=== PATIENT | female | born 1950 | race Caucasian/White ===

== ENCOUNTER → 2017-11-01 10:49 | Outpatient (CLI) | payer MEDICARE, OTHER, SELFPAY ==
[2017-11-01 12:33] LABS: Absolute Lymphocyte Count 2.02 X10^3/ul (0.83-4.51); Basophil# 0.01 X10^3/uL; Basophil% 0.2 % (0-1); Eosinophil# 0.12 X10^3/uL; Eosinophils% 2.2 % (0-5); Hematocrit 42.7 % (37-47); Lymphocyte # 2.02 X10^3/ul (4.0); Lymphocyte % 36.5 % (19-41); Mean Corp Hgb Conc 32.8 g/gl (32-36); Mean Corpuscular Hgb 30.8 pg (27.0-32.0); Mean Corpuscular Volume 94.1 fL (81-99); Mean Platelet Vol. 9.7 fl (6.2-12.0); Monocyte# 0.41 X10^3/uL; Monocyte% 7.4 % (0-10); Neutrophil # 2.97 X10^3/uL (2.7-7.7); Neutrophil % 53.7 % (47-70); Platelet Count 175 K/mm3 (150-450); RBC Distribution Width CV 13.1 % (11.6-14.6); RBC Distribution Width SD 44.8 fl (35.1-43.9); Red Blood Count 4.54 M/mm3 (4.2-5.4); White Blood Count 5.5 K/mm3 (4.4-11.0)
[2017-11-01 12:37] LABS: POSITIVE COUNT NO; POSITIVE DIFFERENTIAL NO; POSITIVE MORPHOLOGY NO
[2017-11-01 13:02] LABS: Anion Gap 9 (5-15); BUN 15 mg/dL (7-18); BUN/Creat Ratio 17.2 RATIO (10-20); Calcium,Total 9.1 mg/dL (8.5-10.1); Chloride 104 mmol/L (98-107); Creatinine, Serum 0.87 mg/dL (0.55-1.02); EST Glomerular Filtration Rate 69 mL/min (>60); Est Glom Filt Rate - Afr Amer 84 mL/min (>60); Glucose 103 mg/dL (74-106); Potassium 3.9 mmol/L (3.5-5.1); Sodium Level 139 mmol/L (136-145); Thyroid Stim Hormone (TSH) 1.73 uIU/mL (0.358-3.74)
== END ==
PROVIDERS: Family Provider Family Medicine; PCP Family Medicine; Visit Provider Family Medicine
DX: E03.9 Hypothyroidism, unspecified (principal); E78.5 Hyperlipidemia, unspecified
CPT/HCPCS: 36415; 80048; 84439; 84443; 85025

== ENCOUNTER → 2017-11-06 09:54 | Outpatient (CLI) | payer MEDICARE, OTHER, SELFPAY ==
--- NOTE | 2017-11-06 09:55 | ECHOD_ITS ---
Reason For Study: CHF Procedure This was a 2D Doppler, Color Flow transthoracic echocardiogram. Exam performed in department. Left Ventricle Normal size and thickness. The estimated ejection fraction is 55 %. Stage 1 diastolic dysfunction. Mid-Anterior : Mildly hypokinetic. Right Ventricle Normal size and thickness. Normal systolic function. Atria Normal left atrium. Normal right atrium. Normal atrial septum. Mitral Valve The mitral valve is structurally normal. No prolapse or stenosis seen. Tricuspid Valve Normal tricuspid valve. Trivial tricuspid valve insufficiency. Right ventricular systolic pressure estimated to be 24 mmHg. Aortic Valve Trisinus/trileaflet aortic valve. Mild diffuse aortic valve thickening. Mild (1+) aortic valve insufficiency. Pulmonic Valve Normal pulmonic valve. Great Vessels Normal aortic root. Normal arch. Normal inferior vena cava. Inferior vena cava collapse with sniff. Pericardium/Pleural No pericardial effusion. MMode/2D Measurements & Calculations LVIDd: 3.7 cm IVSd: 0.80 cm Ao root diam: 4.1 cm LVIDs: 2.7 cm LVPWd: 0.78 cm LA dimension: 4.3 cm RVDd: 3.8 cm FS: 28.0 % LAV(MOD-bp): 57.1 ml EDV(MOD-sp4): 89.6 ml EDV(MOD-sp2): 81.0 ml LAV(MOD-bp) Indexed: 28.4 ml/m2 ESV(MOD-sp4): 45.6 ml EF(MOD-sp2): 54.7 % LAV(MOD-sp2): 60.2 ml EF(MOD-sp4): 49.1 % LAV(MOD-sp4): 45.9 ml SV(MOD-sp4): 43.9 ml SV(MOD-sp2): 44.3 ml LA A4 area: 17.4 cm2 RA A4 area: 14.1 cm2 Doppler Measurements & Calculations MV E max jorge: 76.1 cm/sec Ao V2 max: 117.0 cm/sec AI max jorge: 351.8 cm/sec MV A max jorge: 88.8 cm/sec Ao max P.5 mmHg AI max P.0 mmHg MV E/A: 0.86 AI dec slope: 167.7 cm/sec2 AI P1/2t: 614.5 msec LV V1 max: 95.4 cm/sec TR max jorge: 217.5 cm/sec LV V1 max P.6 mmHg TR max P.9 mmHg Interpretation Summary The estimated ejection fraction is 55 %. Mid-Anterior : Mildly hypokinetic Stage 1 diastolic dysfunction. Trivial tricuspid valve insufficiency. Right ventricular systolic pressure estimated to be 24 mmHg. Mild (1+) aortic valve insufficiency. Compared to echo report dated 07/24/2017no appreciable changes noted. Ordering Physician: Rashi Traylor Referring Physician: KRISTIAN LAGUERRE Performed By: Emili Coley, KIZZYCS, RVT
== END ==
PROVIDERS: Family Provider Family Medicine; PCP Family Medicine; Visit Provider Internal Medicine Cardiovascular Disease
DX: I25.10 Atherosclerotic heart disease of native coronary artery without angina pectoris (principal)
CPT/HCPCS: 93306

== ENCOUNTER → 2018-04-01 15:28 | Outpatient (CLI) | payer MEDICARE, OTHER, SELFPAY | PROVIDERS: Family Provider Family Medicine; PCP Family Medicine; Visit Provider Obstetrics & Gynecology | DX: Z12.31 Encounter for screening mammogram for malignant neoplasm of breast (principal) | CPT/HCPCS: 77063; 77067 ==

== ENCOUNTER → 2018-05-07 14:40 | Outpatient (CLI) | payer MEDICARE, OTHER, SELFPAY ==
[2018-05-07 15:41] LABS: Absolute Lymphocyte Count 2.93 X10^3/ul (0.83-4.51); Absolute Neutrophil Count 3.2 X10^3/uL (2.0-7.7); Basophil# 0.02 X10^3/uL; Basophil% 0.3 % (0-1); Eosinophil# 0.23 X10^3/uL; Eosinophils% 3.3 % (0-5); Hematocrit 40.7 % (37-47); Hemoglobin 13.7 g/dl (12.0-15.0); Lymphocyte # 2.93 X10^3/ul (4.0); Lymphocyte % 41.9 % (19-41); Mean Corp Hgb Conc 33.7 g/gl (32-36); Mean Corpuscular Hgb 31.4 pg (27.0-32.0); Mean Corpuscular Volume 93.1 fL (81-99); Mean Platelet Vol. 9.7 fl (6.2-12.0); Monocyte# 0.66 X10^3/uL; Monocyte% 9.4 % (0-10); Neutrophil # 3.15 X10^3/uL (2.7-7.7); Platelet Count 184 K/mm3 (150-450); RBC Distribution Width CV 12.9 % (11.6-14.6); RBC Distribution Width SD 42.8 fl (35.1-43.9); Red Blood Count 4.37 M/mm3 (4.2-5.4)
[2018-05-07 15:57] LABS: POSITIVE COUNT NO; POSITIVE DIFFERENTIAL NO; POSITIVE MORPHOLOGY NO
[2018-05-07 16:25] LABS: Vitamin D,25 Hydroxy 22.3 ng/mL (29.95-100.01)
[2018-05-07 16:29] LABS: AST(SGOT) 70 U/L (15-37); Alanine Aminotransfer ALT/SGPT 87 U/L (13-56); Albumin, Serum 3.7 g/dL (3.2-5.0); Alkaline Phosphatase 95 U/L (45-117); Anion Gap 10 (5-15); BUN 18 mg/dL (7-18); BUN/Creat Ratio 19.7 RATIO (10-20); Chloride 104 mmol/L (98-107); Creatinine, Serum 0.91 mg/dL (0.55-1.02); EST Glomerular Filtration Rate 65 mL/min (>60); Est Glom Filt Rate - Afr Amer 79 mL/min (>60); Globulin 3.6 g/dL (2.2-4.2); Glucose 108 mg/dL (74-106); Protein, Total 7.3 g/dL (6.4-8.2); Sodium Level 140 mmol/L (136-145); T4 Free Direct 1.18 ng/dL (0.76-1.46); Thyroid Stim Hormone (TSH) 1.69 uIU/mL (0.358-3.74)
== END ==
PROVIDERS: Family Provider Family Medicine; PCP Family Medicine; Visit Provider Family Medicine
DX: E03.9 Hypothyroidism, unspecified (principal); M85.80 Other specified disorders of bone density and structure, unspecified site; E78.5 Hyperlipidemia, unspecified; G47.00 Insomnia, unspecified; R53.83 Other fatigue
CPT/HCPCS: 36415; 80053; 82306; 84439; 84443; 85025

== ENCOUNTER → 2018-07-17 12:07 | Outpatient (CLI) | payer MEDICARE, OTHER, SELFPAY ==
[2018-06-09 11:37] VITALS: BMI 35.9
[2018-07-17 14:11] LABS: AST(SGOT) 37 U/L (15-37); Alanine Aminotransfer ALT/SGPT 48 U/L (13-56); Albumin, Serum 3.7 g/dL (3.2-5.0); Alkaline Phosphatase 83 U/L (45-117); Bilirubin, Direct 0.21 mg/dL (0.00-0.30); Globulin 3.7 g/dL (2.2-4.2); Protein, Total 7.4 g/dL (6.4-8.2)
--- OUTSIDE RECORDS SUMMARY | 2018-09-11 15:20 | XMS RPT_ITS ---
:1950 Author Organization [facility] Care Team Providers Name Role Phone Janiya Cornelius Attending Unavailable Conrado, Kristian Referring Unavailable Conrado, Kristian Primary Care Unavailable ConradoKristian nuñez Attending Unavailable Conrado, Kristian Primary Care Unavailable Rashi Traylor Attending Unavailable Conrado, Kristian Referring Unavailable Conrado, Kristian Primary Care Unavailable Rashi Traylor Attending Unavailable Conrado, Kristian Primary Care Unavailable Rashi Traylor Attending Unavailable Lilia Keen Attending Unavailable Conrado, Kristian Primary Care Unavailable Conrado, Kristian Attending Unavailable Conrado, Kristian Primary Care Unavailable Janiya Cornelius Attending Unavailable Conrado, Kristian Referring Unavailable Janiya Cornelius Attending Unavailable Janiya Cornelius Referring Unavailable Primay Care Physicia, No Primary Care Unavailable PROBLEMS PROBLEMS DATE TYPE CONDITION / CODE ATTENDING STATUS SOURCE 06/09/2018 Unknown E78.5 - Adryan, Active [place] Hyperlipidemia, Janiya Vazquez [facility] unspecified / Hospital E78.5(ICD-10) Repository 11/05/2017 Unknown I25.10 - Rashi Traylor Active [place] Atherosclerotic heart Community disease of [facility] coronary artery Repository without angina pectoris / I25.10(ICD-10) 11/05/2017 Unknown E03.9 - Kristian Camp Active [place] Hypothyroidism, Community unspecified / Hospital E03.9(ICD-10) Repository PROCEDURES PROCEDURES No Procedure Records FoundRESULTS RESULTS LIVER PROFILE Collected: 07/17/2018 Status: F Source: [place] 12:13 PM [facility] REPOSITORY TYPE CODE TESTS RESULT OUT OF RANGE REFERENCE UNITS LAB L501.1500 6.4-8.2 g/dL Normal T PROT 7.4 LAB L501.1800 3.2-5.0 g/dL Normal ALB 3.7 LAB L501.1950 2.2-4.2 g/dL Normal GLOB 3.7 LAB L501.4100 15-37 U/L Normal AST 37 LAB L501.4305 45-117 U/L Normal ALK P 83 LAB L501.4405 13-56 U/L Normal ALT 48 LAB L501.4600 0.20-1.00 mg/dL Normal T BILI 0.70 LAB L501.4700 0.00-0.30 mg/dL Normal D BILI 0.21 Performed By: #### L500.3400 #### [facility] [address] [place], [place], [address] CARDIOLOGY VISIT Observed: 06/16/2018 Status: F Source: [place] REPORT 2:55 PM [facility] REPOSITORY [facility] [address] [place] [address] OFFICE VISIT Date of Service: 06/09/18 MR#: [id number] Acct: [id number] Name: ROMERO PONCE Rep #: [id number] : 1950 Provider: Janiya Cornelius Age/Sex: 68/F [place] [facility] [place]: Signed HPI HPI Chief Complaint: Routine f/u Details: ROMERO PONCE, is a 68 F who presents to the office today for a cardiovascular follow-up. She had a non-ST myocardial infarction in July 2017. Her troponin did elevate to 37. She did undergo a diagnostic heart catheterization it was noted that she had no significant coronary artery disease. 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 From a cardiac standpoint, patient is doing well. She does not have any chest discomfort/heaviness/tightness. Her exercise tolerance is stable for her age. She does not have any worsening symptoms of shortness of breath. She does not have any orthopnea. She denies PND. She does not have any symptoms of congestive heart failure. She does not have any palpitations that she is aware of. She does not have any lightheadedness or dizziness. She does not have any near-syncope or syncope. She does not have any lower extremity edema. She does not have any symptoms of claudication. Intake Vital Signs06/09/18 Height 5 ft 3 in 06/09/18 Weight: 203 lb 06/09/18 Body Mass Index (BMI) 35.9 06/09/18 Blood Pressure 118/72 06/09/18 Blood Pressure Location Lt brachial Intake Visit Reasons: 6 M FU Bee Robber Required: No Is patient in pain?: No Allergies Sulfa (Sulfonamide Antibiotics) Allergy (Verified 06/09/18 11:38) Rash Medications Levothyroxine [Synthroid] 75 mcg PO DAILY 03/27/15 [History Confirmed 06/09/18] Multivit with Calcium,Iron,Min [Multiple Vitamins For Women] 1 ea PO DAILY 03/27/15 [History Confirmed 06/09/18] Zolpidem Tartrate [Ambien] 5 mg PO QHS PRN PRN 07/24/17 [History Confirmed 06/09/18] Aspirin [Aspirin, Baby] 81 mg PO DAILY@0800 #90 tab.chew 07/26/17 [Rx Confirmed 06/09/18] Atorvastatin Calcium [Lipitor] 40 mg PO QHS #90 tab 07/26/17 [Rx Confirmed 06/09/18] Metoprolol Tartrate [Lopressor (beta karma)] 12.5 mg PO BID #30 tab 07/26/17 [Rx Confirmed 06/09/18] lisinopril 20 mg-hydrochlorothiazide 12.5 mg tablet 0.5 tab PO .QD tab 11/05/17 [History Confirmed 06/09/18] PFSH Medical History Atherosclerosis of coronary artery of [place] heart without angina pectoris (Chronic) Hyperlipidemia (Chronic) Hypertension (Chronic) Non-STEMI (non-ST elevated myocardial infarction) (Acute 07/2017) Social History Smoking Status: Never smoker ROS Const Const: Negative for weakness, fatigue, fever(s) or headache(s) Eyes Eyes: Negative for blind spots, loss of peripheral vision or transient loss of vision ENT ENT: Negative for headache(s), dizziness, tinnitus or Nosebleed/epistaxis Cardio Chest Pain: No Palpitations: No Edema: None Muscle aches with walking: None Resp Respiratory: Negative for SOB with activity, SOB at rest, SOB orthopnea\SOB lying down or Cough GI GI: Negative nausea, vomiting, heartburn or vomiting blood/hematemesis : Negative for hematuria Musc Musc: Negative for muscle aches/ myalgia Neuro Neuro: Negative for weakness, headache(s), dizziness, near syncope, syncope, lightheadedness or orthostatic symptoms Kye Hematologic/Lymphatic: Negative for easy bleeding Endo Endo: Negative for fatigue Cardiology Exam Const Appearance: cooperative, no acute distress and well developed Orientation: alert, awake and oriented x3 Head Head: normocephalic and atraumatic Mouth: moist mucous membranes Eyes General: appearance normal, both eyes and all related structures Conjunctivae: conjunctivae normal Pupils: PERRL EOM: EOM intact bilaterally Neck Neck: normal visual inspection, no lymphadenopathy and no JVD Carotids: Negative bruit Neck Mass: Negative Neck mass Chest Chest inspection: normal inspection of the chest and symmetric chest movement Auscultation: Bilateral: Clear to Auscultation Cardio Palpation: normal PMI Rate: regular rate Rhythm: regular rhythm Heart sounds: S1 normal and S2 normal; negative rub, gallop or murmur GI GI: normal to inspection, soft, no hepatosplenomegaly and bowel sounds present; negative tender Neuro General: alert, awake, oriented x3, CN's II-XI intact bilaterally and moves all extremities Extremities Pulses: Normal: Right Posterior Tibial Pulse, Left Posterior Tibial Pulse, Right Radial Pulse, Left Radial Pulse Lower Extremity Edema: None: Bilateral Psych Psychological: normal affect Supplemental Info Echocardiogram in 2018 demonstrated: The estimated ejection fraction is 55 %. Mid-Anterior : Mildly hypokinetic Stage 1 diastolic dysfunction. Trivial tricuspid valve insufficiency. Right ventricular systolic pressure estimated to be 24 mmHg. Mild (1+) aortic valve insufficiency. Compared to echo report dated 07/24/2017no appreciable changes noted. Assessment AND Plan 1. Atherosclerosis of [place] coronary artery of [place] heart without angina pectoris I25.10 Plan Stable, from a cardiac standpoint patient does not have any symptoms of angina. We recommend that they continue with current aggressive medical management and risk factor modification. 2. Pure hypercholesterolemia E78.00 Plan This is previously been managed by her primary care doctor. She is concerned about her elevated liver enzymes. We will have her decrease her atorvastatin to 20 mg daily and repeat her hepatic panel in 4 weeks. We will continue to adjust accordingly Patient Instructions Decrease your atorvastatin to 20 mg, Repeat hepatic panel in 4 weeks. 3. Essential hypertension I10 Plan Adequately controlled on current medications. Will not make any adjustments Plan Detail Other Orders Orders: Additional Comments Thank you for allowing us to participate in patient's plan of care, if you have any questions please do not hesitate to call. This note was generated using a voice recognition system and there may be incorrect words, spelling or punctuation errors that were not noted when reviewing the office note prior to saving. Follow Up 6 Months (MARQUISEN) Coding Level of Care Code Off vis,est,level 3 Diagnoses Atherosclerosis of [place] coronary artery of [place] heart without angina pectoris I25.10 Coronary Disease-Associated Artery/Lesion type: [place] artery Pure hypercholesterolemia E78.00 Hyperlipidemia type: pure hypercholesterolemia Essential hypertension I10 Hypertension type: essential hypertension Coding Level of Care Code Off vis,est,level 3 Diagnoses Atherosclerosis of [place] coronary artery of [place] heart without angina pectoris I25.10 Coronary Disease-Associated Artery/Lesion type: [place] artery Pure hypercholesterolemia E78.00 Hyperlipidemia type: pure hypercholesterolemia Essential hypertension I10 Hypertension type: essential hypertension 06/16/18 1455 <Electronically signed by Janiya DEL ANGEL> Date Janiya DEL ANGEL Cosigner Signature: Date (if applicable) CC: Kristian Camp MD CBC W/DIFF, AUTOMATED Collected: 05/07/2018 Status: F Source: [place] 2:42 PM [facility] REPOSITORY TYPE CODE TESTS RESULT OUT OF RANGE REFERENCE UNITS LAB L100.1000 4.4-11.0 K/mm3 Normal WBC 7.0 LAB L100.1200 4.2-5.4 M/mm3 Normal RBC 4.37 LAB L100.1300 12.0-15.0 g/dl Normal HGB 13.7 LAB L100.1400 37-47 % Normal HCT 40.7 LAB L100.1500 81-99 fL Normal MCV 93.1 LAB L100.1600 27.0-32.0 pg Normal MCH 31.4 LAB L100.1700 32-36 g/gl Normal MCHC 33.7 LAB L100.1810 11.6-14.6 % Normal RDW CV 12.9 LAB L100.1820 35.1-43.9 fl Normal RDW SD 42.8 LAB L100.1900 150-450 K/mm3 Normal PLT 184 LAB L100.2000 6.2-12.0 fl Normal MPV 9.7 LAB L100.2100 47-70 % Low NEUT% 45.0 LAB L100.2200 19-41 % High LY% 41.9 LAB L100.2300 0-10 % Normal MONO% 9.4 LAB L100.2400 0-5 % Normal EO% 3.3 LAB L100.2500 0-1 % Normal BASO% 0.3 LAB L100.2550 0.0-0.9 % Normal IM GRAN % 0.100 Result Comment: IG% - Immature Granulocytes (promyelocytes, myelocytes and metamyelocytes) > 1% indicates that a LEFT SHIFT is Present. LAB L100.2620 2.0-7.7 X10 3/uL Normal Absolute Neut 3.2 LAB L100.2720 0.83-4.51 X10 3/ul Normal Absolute Lymph 2.93 Performed By: #### L100.0100 #### [facility] [place], [address] VITAMIN D,25 HYDROXY Collected: 05/07/2018 Status: F Source: [place] 2:42 PM [facility] REPOSITORY TYPE CODE TESTS RESULT OUT OF REFERENCE UNITS RANGE LAB L506.1000 29.95-100.01 ng/mL Low Vitamin D 22.3 25-OH Result Comment: Vitamin D 25(OH) Status Range Deficiency <20 ng/mL (50nmol/L) Insuffciency 20 - 30 ng/mL (50 - 75 nmol/L) Sufficiency 30 - 100 ng/mL (75 - 250 nmol/L) Toxicity >100 ng/mL (>250 nmol/L) Performed By: #### L506.1000 #### [facility] [address] [place], [address] COMPREHENSIVE METABOLIC Collected: 05/07/2018 Status: F Source: [place] MANN 2:42 PM [facility] REPOSITORY TYPE CODE TESTS RESULT OUT OF RANGE REFERENCE UNITS LAB L501.0100 74-106 mg/dL High GLU 108 Result Comment: Fasting Glucose result from 100 to 125 mg/dL suggests IMPAIRED HOMEOSTASIS per A.D.A. criteria. Please note revised GLUCOSE reference range effective 2017. LAB L501.1000 7-18 mg/dL Normal BUN 18 LAB L501.1100 0.55-1.02 mg/dL Normal CREAT,SERUM 0.91 Result Comment: The validity of the calculated GFR AND GFRAA in patients over 70 years has not been determined. Clinical correlation is essential. LAB L501.1110 >60 mL/min Normal EST GFR 65 Result Comment: Non- GFR Calc LAB L501.1115 >60 mL/min Normal EST GFR - AA 79 Result Comment: GFR Calc LAB L501.1300 10-20 RATIO Normal BUN/CRE 19.7 LAB L501.1500 6.4-8.2 g/dL T Normal PROT 7.3 LAB L501.1800 3.2-5.0 g/dL Normal ALB 3.7 LAB L501.1950 2.2-4.2 g/dL Normal GLOB 3.6 LAB L501.2000 0.9-2.4 RATIO Normal A/G 1.0 LAB L501.2200 8.5-10.1 mg/dL CA Normal 9.0 LAB L501.4100 15-37 U/L High AST 70 LAB L501.4305 45-117 U/L Normal ALK P 95 LAB L501.4405 13-56 U/L High ALT 87 LAB L501.4600 0.20-1.00 mg/dL T Normal BILI 0.60 LAB L501.5300 136-145 mmol/L NA Normal 140 LAB L501.5600 3.5-5.1 mmol/L K Normal 4.0 LAB L501.5900 98-107 mmol/L CL Normal 104 LAB L501.6100 21.0-32.0 mmol/L Normal CO2 26.0 LAB L501.6200 5-15 Normal GAP 10 Performed By: #### L500.4050, L501.9520, L506.0400 #### [facility] [address] [place], [address] THYROID STIM HORMONE Collected: 05/07/2018 Status: F Source: [place] (TSH) 2:42 PM [facility] REPOSITORY TYPE CODE TESTS RESULT OUT OF RANGE REFERENCE UNITS LAB L501.9520 0.358-3.74 uIU/mL Normal TSH 1.69 Performed By: #### L500.4050, L501.9520, L506.0400 #### [facility] [address] [place], [address] T4 FREE DIRECT Collected: 05/07/2018 Status: F Source: [place] 2:42 PM [facility] REPOSITORY TYPE CODE TESTS RESULT OUT OF RANGE REFERENCE UNITS LAB L506.0400 0.76-1.46 ng/dL Normal T4 FREE 1.18 DIRECT Performed By: #### L500.4050, L501.9520, L506.0400 #### [facility] [address] [place], [address] SCREENING MAMM (CAD), Observed: 04/01/2018 Status: F Source: [place] BILAT 3:34 PM [facility] REPOSITORY [facility] Imaging Services [address] [place] [id number] SCREENING MAMM (CAD), BILAT MR#: [id number] Acct: [id number] Name: ROMERO PONCE Rep #: [id number] : 1950 F 67 From: Rogerio Kirby MD PCP: Kristian Camp MD Status: REG CLI Study: SCREENING MAMM (CAD), BILAT Date of Exam: 04/01/18 Exam# [id number] Ordering Dr: Lilia Keen MD MAMMOGRAPHY - BILATERAL SCREENING REASON FOR EXAM: Female, 67 years old. Routine annual screening examination. PERTINENT HISTORY: Non-contributory. TECHNIQUE: Digital bilateral breast rachelle (3D mammographic acquisition) in the CC and MLO projections. 2-D mediolateral oblique (MLO) and craniocaudad (CC) views of both breasts were obtained. CAD: Full Field Digital Mammography with Computer Added Detection was performed. COMPARISON: Comparison is made with prior study dated March 06, 2017 and January 03, 2016. FINDINGS: Breast Composition: The breasts are almost entirely fatty. There are no dominant masses or suspicious calcifications. No other significant abnormalities are identified. There has been no significant change since the prior study. BI/SCREENING MAMM (CAD), BILAT IMPRESSION: Stable bilateral screening mammogram. Yearly follow-up mammogram recommended. (A) ASSESSMENT CATEGORY: BIRADS Category 1: Negative. A letter regarding these results will be sent to the patient by the facility within 30 days. Approximately 10% of breast cancers are not detected by mammography. A normal mammogram should not delay biopsy of a clinically suspicious abnormality. [id number] Electronically Signed: Rogerio Kirby MD at 9:43 EDT Tel [phone], Service support , CC: Lilia Keen MD; Kristian Camp MD Fire Sprinkler Inspector: Signed ECHOCARDIOGRAM COMPLETE Observed: 11/06/2017 Status: F Source: [place] 5:02 PM [facility] REPOSITORY [facility] Cardiovascular Services [facility] [place] [address] Echo Complete 11/06/17 0959 MR#: [id number] Acct: [id number] Name: ROMERO PONCE Rep #: [id number] : 1950 67 From: Rashi Traylor MD Attending Dr: Rashi Traylor MD Status: REG CLI Ordering Dr: Rashi Traylor MD Date: 11/06/17 Location: [facility] Sex: F C Admitted: Reason For Study: CHF Procedure This was a 2D Doppler, Color Flow transthoracic echocardiogram. Exam performed in department. Left Ventricle Normal size and thickness. The estimated ejection fraction is 55 %. Stage 1 diastolic dysfunction. Mid-Anterior : Mildly hypokinetic. Right Ventricle Normal size and thickness. Normal systolic function. Atria Normal left atrium. Normal right atrium. Normal atrial septum. Mitral Valve The mitral valve is structurally normal. No prolapse or stenosis seen. Tricuspid Valve Normal tricuspid valve. Trivial tricuspid valve insufficiency. Right ventricular systolic pressure estimated to be 24 mmHg. Aortic Valve Trisinus/trileaflet aortic valve. Mild diffuse aortic valve thickening. Mild (1+) aortic valve insufficiency. Pulmonic Valve Normal pulmonic valve. Great Vessels Normal aortic root. Normal arch. Normal inferior vena cava. Inferior vena cava collapse with sniff. Pericardium/Pleural No pericardial effusion. MMode/2D Measurements AND Calculations LVIDd: 3.7 cm IVSd: 0.80 cm Ao root diam: 4.1 cm LVIDs: 2.7 cm LVPWd: 0.78 cm LA dimension: 4.3 cm RVDd: 3.8 cm FS: 28.0 % LAV(MOD-bp): 57.1 ml EDV(MOD-sp4): 89.6 ml EDV(MOD-sp2): 81.0 ml LAV(MOD-bp) Indexed: 28.4 ml/m2 ESV(MOD-sp4): 45.6 ml EF(MOD-sp2): 54.7 % LAV(MOD-sp2): 60.2 ml EF(MOD-sp4): 49.1 % LAV(MOD-sp4): 45.9 ml SV(MOD-sp4): 43.9 ml SV(MOD-sp2): 44.3 ml LA A4 area: 17.4 cm2 RA A4 area: 14.1 cm2 Doppler Measurements AND Calculations MV E max jorge: 76.1 cm/sec Ao V2 max: 117.0 cm/sec AI max jorge: 351.8 cm/sec MV A max jorge: 88.8 cm/sec Ao max P.5 mmHg AI max P.0 mmHg MV E/A: 0.86 AI dec slope: 167.7 cm/sec2 AI P1/2t: 614.5 msec LV V1 max: 95.4 cm/sec TR max jorge: 217.5 cm/sec LV V1 max P.6 mmHg TR max P.9 mmHg Interpretation Summary The estimated ejection fraction is 55 %. Mid-Anterior : Mildly hypokinetic Stage 1 diastolic dysfunction. Trivial tricuspid valve insufficiency. Right ventricular systolic pressure estimated to be 24 mmHg. Mild (1+) aortic valve insufficiency. Compared to echo report dated 12/06/2017no appreciable changes noted. Ordering Physician: Rashi Traylor Referring Physician: KRISTIAN LAGUERRE Performed By: Emili Coley, LORENA, RVT 11/06/17 170 Date Rashi Traylor MD CC: Rashi Traylor MD; Kristian Camp Date Dictated: 11/06/17958 Date Transcribed: 11/06/171700 Fire Sprinkler Inspector: Signed CARDIOLOGY VISIT Observed: 11/05/2017 Status: F Source: [place] REPORT 10:56 AM [facility] REPOSITORY [facility] [address] [place] [address] OFFICE VISIT Date of Service: 11/05/17 MR#: [id number] Acct: [id number] Name: ROMERO PONCE Rep #: [id number] : 1950 Provider: Rashi Traylor MD Age/Sex: 67/F [place] [facility] Status: Signed HPI HPI Chief Complaint: Routine f/u Details: Details: ROMERO PONCE, is a 67 F who presents to the office today for a hospital follow-up. She had a non-ST myocardial infarction in July 2017. Her troponin did elevate to 31. She did undergo a diagnostic heart catheterization it was noted that she had no significant coronary artery disease. 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 Patient states that since her hospital stay she has not had any chest discomfort. She has not had any worsening shortness of breath. She does have questions on what type of activity she can do. She does have questions regarding her medications. She has not had any palpitations. She has not had any lightheadedness or dizziness. She has not had any lower extremity edema. Patient apparently requires foot surgery for a loose screw, and is here for evaluation. She has been taking and tolerating her medicines well. She feels great, and denies any chest pain, angina or shortness of breath. She was unable to participate in cardiac rehab due to her foot injury and mobility limitations. In our office today's blood pressure is 1 1 672, pulse of 64 and regular. Physical exam is as below. Lipids as of 02/28/17 show an HDL of 51 and LDL of 84. TSH and T4 were normal. Repeat echo is pending. Intake Vital Signs11/05/17 Height 5 ft 3 in 11/05/17 Weight: 207 lb 11/05/17 Body Mass Index (BMI) 36.6 11/05/17 Blood Pressure 116/72 11/05/17 Respiratory Rate 18 11/05/17 Pulse Rate 64 Intake Visit Reasons: 3 M FU Allergies Sulfa (Sulfonamide Antibiotics) Allergy (Verified 11/05/17 10:11) Rash Medications Calcium Carb,Gluc/Mag Ox,Gluc [Calcium Magnesium Caplet] 1 ea PO DAILY 03/27/15 [History Confirmed 11/05/17] Levothyroxine [Synthroid] 75 mcg PO DAILY 03/27/15 [History Confirmed 11/05/17] Multivit with Calcium,Iron,Min [Multiple Vitamins For Women] 1 ea PO DAILY 03/27/15 [History Confirmed 11/05/17] Zolpidem Tartrate [Ambien] 5 mg PO QHS PRN PRN 07/24/17 [History Confirmed 11/05/17] Aspirin [Aspirin, Baby] 81 mg PO DAILY@0800 #90 tab.chew 07/26/17 [Rx Confirmed 11/05/17] Atorvastatin Calcium [Lipitor] 40 mg PO QHS #90 tab 07/26/17 [Rx Confirmed 11/05/17] Clopidogrel Bisulfate [Plavix] 75 mg PO DAILY #90 tab 07/26/17 [Rx Confirmed 11/05/17] Metoprolol Tartrate [Lopressor (beta karma)] 12.5 mg PO BID #30 tab 07/26/17 [Rx Confirmed 11/05/17] lisinopril 20 mg-hydrochlorothiazide 12.5 mg tablet 0.5 tab PO .QD tab 11/05/17 [History Confirmed 11/05/17] [facility] Medical History Atherosclerosis of coronary artery of [place] heart without angina pectoris (Chronic) Hyperlipidemia (Chronic) Hypertension (Chronic) Non-STEMI (non-ST elevated myocardial infarction) (Acute 07/2017) Social History Smoking Status: Never smoker ROS Const Const: Positive for fatigue and other (Needs right foot surgery. Scheduled for next week.); negative for weakness, difficulty sleeping, frequent falls, headache(s) or excessive sweating Eyes Eyes: Negative for loss of peripheral vision, transient loss of vision, blurry vision or double vision ENT ENT: Negative for headache(s), dizziness, Nosebleed/epistaxis or balance problems Cardio Chest Pain: No Edema: None Muscle aches with walking: None Resp Respiratory: Positive for SOB with activity (SOB when climbing stairs); negative for SOB at rest, SOB orthopnea\SOB lying down or paroxysmal nocturnal dyspnea GI GI: Negative nausea or heartburn : Negative for hematuria Musc Musc: Negative for muscle aches/ myalgia, muscle weakness, joint pain or balance problems Skin Skin: Negative non-healing lesions, unusual bruising or rash Neuro Neuro: Negative for weakness, frequent falls, blurry vision, headache(s), dizziness, lightheadedness, orthostatic symptoms or double vision [place]ye Hematologic/Lymphatic: Negative for easy bruising Endo Endo: Positive for fatigue; negative for excessive sweating or increased thirst/drinking Psych Psych: Negative for anxiety or depression Allergy Allergy/Immunology: Negative for hives, Negative for rash Cardiology Exam Const Appearance: cooperative, healthy appearing and no acute distress Nutritional Appearance: well nourished Orientation: alert, oriented x3 and oriented to person Head Head: normal to inspection, atraumatic and normocephalic Nose: external nose normal Face and Sinus: face symmetric Mouth: oral mucosae normal Eyes General: appearance normal, both eyes and all related structures Eyelids: eyelids normal Conjunctivae: conjunctivae normal Pupils: PERRL and normal by confrontation EOM: EOM intact bilaterally Neck Neck: normal visual inspection and full ROM Carotids: normal carotid upstroke Chest Chest inspection: normal inspection of the chest Auscultation: Bilateral: Clear to Auscultation Cardio Palpation: normal PMI Rate: regular rate Rhythm: regular rhythm Heart sounds: S1 normal and S2 normal GI GI: normal to inspection, no hepatosplenomegaly and bowel sounds present Neuro General: alert, oriented x3, awake, CN's II-XI intact bilaterally and moves all extremities Skin Skin: no rashes or lesions noted Extremities Pulses: Normal: Right Femoral Pulse, Left Femoral Pulse, Right Dorsalis Pedis Pulse, Left Dorsalis Pedis Pulse, Right Posterior Tibial Pulse, Left Posterior Tibial Pulse, Right Radial Pulse, Left Radial Pulse Lower Extremity Edema: None: Bilateral Psych Psychological: normal affect Assessment AND Plan 1. Atherosclerosis of coronary artery of [place] heart without angina pectoris I25.10 Plan 1. Coronary artery disease: In July 2017 the patient presented with what appeared to be coronary vasospasm or small vessel occlusion which could not be completely determined by catheterization. She is remained on baby aspirin and Plavix since that time, and now requires repeat foot surgery to repair a screw. Recommend discontinuation of Plavix which she did last , but would recommend lifelong baby aspirin. I do not believe she requires a repeat stress test for her surgery. I would recommend continuing Zestoretic, Lopressor. I do not believe she requires reinitiation of Plavix therapy after her surgery as she did not receive a stent. It is been about 3 months since her event. It is possible the patient may have had coronary vasospasm such as Takostubos cardiomyopathy to explain her symptoms and abnormal troponin although her troponin was fairly high for stress-induced cardiomyopathy. Nonetheless, it may happen again given the stress of her surgery. It hopefully will be mitigated with beta-karma therapy. Her blood pressure is optimized. Continue present management. I would however recommend repeat echocardiogram to determine if her mid anterior apical dysfunction has improved. The patient was unable to put spitting cardiac rehab due to her foot. Once her foot is healed I would recommend her proceed with cardiac rehab. Orders Orders: 2. Pure hypercholesterolemia E78.00 Plan 2. Hypercholesterolemia: Her LDL and HDL cholesterol are fairly well-controlled. Continue Lipitor. 3. Return office in 6 months. This note was generated using a voice recognition system and there may be incorrect words, spelling or punctuation that were not noted when reviewing the office note prior to saving. Plan Detail Follow Up 6 Months ([place]) Coding Level of Care Code Off vis,est,level 3 Diagnoses Atherosclerosis of coronary artery of mil[place] lacs heart without angina pectoris I25.10 Pure hypercholesterolemia E78.00 Hyperlipidemia type: pure hypercholesterolemia Coding Level of Care Code Off vis,est,level 3 Diagnoses Atherosclerosis of coronary artery of [place] heart without angina pectoris I25.10 Pure hypercholesterolemia E78.00 Hyperlipidemia type: pure hypercholesterolemia 11/05/17 1056 <Electronically signed by Rashi Traylor MD> Date Rashi Traylor MD Cosigner Signature: Date (if applicable) CC: CBC W/DIFF, AUTOMATED Collected: 11/01/2017 Status: F Source: PAUL 10:51 AM [facility] REPOSITORY TYPE CODE TESTS RESULT OUT OF RANGE REFERENCE UNITS LAB L100.1000 4.4-11.0 K/mm3 Normal WBC 5.5 LAB L100.1200 4.2-5.4 M/mm3 Normal RBC 4.54 LAB L100.1300 12.0-15.0 g/dl Normal HGB 14.0 LAB L100.1400 37-47 % Normal HCT 42.7 LAB L100.1500 81-99 fL Normal MCV 94.1 LAB L100.1600 27.0-32.0 pg Normal MCH 30.8 LAB L100.1700 32-36 g/gl Normal MCHC 32.8 LAB L100.1810 11.6-14.6 % Normal RDW CV 13.1 LAB L100.1820 35.1-43.9 fl High RDW SD 44.8 LAB L100.1900 150-450 K/mm3 Normal PLT 175 LAB L100.2000 6.2-12.0 fl Normal MPV 9.7 LAB L100.2100 47-70 % Normal NEUT% 53.7 LAB L100.2200 19-41 % Normal LY% 36.5 LAB L100.2300 0-10 % Normal MONO% 7.4 LAB L100.2400 0-5 % Normal EO% 2.2 LAB L100.2500 0-1 % Normal BASO% 0.2 LAB L100.2550 0.0-0.9 % Normal IM GRAN % 0.000 Result Comment: IG% - Immature Granulocytes (promyelocytes, myelocytes and metamyelocytes) > 1% indicates that a LEFT SHIFT is Present. LAB L100.2620 2.0-7.7 X10 3/uL Normal Absolute Neut 3.0 LAB L100.2720 0.83-4.51 X10 3/ul Normal Absolute Lymph 2.02 Performed By: #### L100.0100 #### [facility] [address] [place], [address] BASIC METABOLIC Collected: 11/01/2017 Status: F Source: [place] PROFILE (BMP) 10:51 AM [facility] REPOSITORY TYPE CODE TESTS RESULT OUT OF RANGE REFERENCE UNITS LAB L501.0100 74-106 mg/dL Normal GLU 103 Result Comment: Fasting Glucose result from 100 to 125 mg/dL suggests IMPAIRED HOMEOSTASIS per A.D.A. criteria. Please note revised GLUCOSE reference range effective 2017. LAB L501.1000 7-18 mg/dL Normal BUN 15 LAB L501.1100 0.55-1.02 mg/dL Normal CREAT,SERUM 0.87 Result Comment: The validity of the calculated GFR AND GFRAA in patients over 70 years has not been determined. Clinical correlation is essential. LAB L501.1110 >60 mL/min Normal EST GFR 69 Result Comment: Non- GFR Calc LAB L501.1115 >60 mL/min Normal EST GFR - AA 84 Result Comment: GFR Calc LAB L501.1300 10-20 RATIO Normal BUN/CRE 17.2 LAB L501.2200 8.5-10.1 mg/dL CA Normal 9.1 LAB L501.5300 136-145 mmol/L NA Normal 139 LAB L501.5600 3.5-5.1 mmol/L K Normal 3.9 LAB L501.5900 98-107 mmol/L CL Normal 104 LAB L501.6100 21.0-32.0 mmol/L Normal CO2 26.0 LAB L501.6200 5-15 Normal GAP 9 Performed By: #### L500.2500, L501.9520, L506.0400 #### [facility] [address] [place], [address] THYROID STIM HORMONE Collected: 11/01/2017 Status: F Source: PAUL (TSH) 10:51 AM [facility] REPOSITORY TYPE CODE TESTS RESULT OUT OF RANGE REFERENCE UNITS LAB L501.9520 0.358-3.74 uIU/mL Normal TSH 1.73 Performed By: #### L500.2500, L501.9520, L506.0400 #### [facility] [address] [place], [address] T4 FREE DIRECT Collected: 11/01/2017 Status: F Source: PAUL 10:51 AM [facility] REPOSITORY TYPE CODE TESTS RESULT OUT OF RANGE REFERENCE UNITS LAB L506.0400 0.76-1.46 ng/dL Normal T4 FREE 1.30 DIRECT Performed By: #### L500.2500, L501.9520, L506.0400 #### [facility] [address] [place], [address] CARDIOLOGY VISIT Observed: 08/17/2017 Status: F Source: PAUL REPORT 12:21 PM [facility] REPOSITORY [facility] [address] [place] [address] OFFICE VISIT Date of Service: 08/14/17 MR#: [id number] Acct: [id number] Name: ROMERO PONCE Rep #: [id number] : 1950 Provider: Janiya Cornelius Age/Sex: 67/F [place] [facility] [place]: Signed HPI 2-4 wk s/p : Details: ROMERO PONCE, is a 67 F who presents to the office today for a hospital follow-up. She had a non-ST myocardial infarction in July 2017. Her troponin did elevate to 37. She did undergo a diagnostic heart catheterization it was noted that she had no significant coronary artery disease. 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 Patient states that since her hospital stay she has not had any chest discomfort. She has not had any worsening shortness of breath. She does have questions on what type of activity she can do. She does have questions regarding her medications. She has not had any palpitations. She has not had any lightheadedness or dizziness. She has not had any lower extremity edema. She is in the process of being evaluated for surgery on her foot. She is requesting that her office visit be sent to Dr. Candelario at [facility]. Phone number for the office is [phone] ext [phone] Intake Vital Signs08/14/17 Height 5 ft 3 in 08/14/17 Weight: 203 lb 08/14/17 Body Mass Index (BMI) 35.9 08/14/17 Blood Pressure 118/80 08/14/17 Pulse Rate 92 Intake Visit Reasons: 2-4 wk s/p Allergies Sulfa (Sulfonamide Antibiotics) Allergy (Verified 07/24/17 08:50) Rash Medications Calcium Carb,Gluc/Mag Ox,Gluc [Calcium Magnesium Caplet] 1 ea PO DAILY 03/27/15 [History Confirmed 07/24/17] Levothyroxine [Synthroid] 75 mcg PO DAILY 03/27/15 [History Confirmed 07/24/17] Multivit with Calcium,Iron,Min [Multiple Vitamins For Women] 1 ea PO DAILY 03/27/15 [History Confirmed 07/24/17] Quinapril/Hydrochlorothiazide [Accuretic 20-12.5 MG Tablet] 0.5 tab PO DAILY 03/27/15 [History Confirmed 07/24/17] Zolpidem Tartrate [Ambien] 5 mg PO QHS PRN PRN 07/24/17 [History Confirmed 07/24/17] Aspirin [Aspirin, Baby] 81 mg PO DAILY@0800 #90 tab.chew 07/26/17 [Rx] Atorvastatin Calcium [Lipitor] 40 mg PO QHS #90 tab 07/26/17 [Rx] Clopidogrel Bisulfate [Plavix] 75 mg PO DAILY #90 tab 07/26/17 [Rx] Metoprolol Tartrate [Lopressor (beta karma)] 12.5 mg PO BID #30 tab 07/26/17 [Rx] Ejection fraction %: 60 to 64 PFSH Medical History CAD (coronary artery disease) (Chronic) Hyperlipidemia (Chronic) Hypothyroidism (Chronic) Obesity (BMI 30.0-34.9) (Chronic) Hypertension (Chronic) Acute chest pain (Acute) Non-STEMI (non-ST elevated myocardial infarction) (Acute 07/2017) Social History Smoking Status: Never smoker ROS Const Const: Negative for weakness, fatigue, fever(s) or headache(s) Eyes Eyes: Negative for blind spots, loss of peripheral vision or transient loss of vision ENT ENT: Negative for headache(s), Negative for dizziness, Negative for tinnitus, Negative for Nosebleed/epistaxis Cardio Chest Pain: No Palpitations: Positive for No Edema: None Muscle aches with walking: None Resp Respiratory: Negative for SOB with activity, SOB at rest or SOB orthopnea\SOB lying down GI GI: Negative nausea, vomiting, heartburn or vomiting blood/hematemesis : Negative for hematuria Musc Musc: Positive for muscle aches/ myalgia and joint pain Neuro Neuro: Negative for weakness, Negative for headache(s), Negative for dizziness, Negative for near syncope, Negative for syncope, Negative for lightheadedness Kye Hematologic/Lymphatic: Negative for easy bleeding Endo Endo: Negative for fatigue Cardiology Exam Const Appearance: cooperative, no acute distress and well developed Orientation: alert, awake and oriented x3 Head Head: normocephalic and atraumatic Mouth: moist mucous membranes Eyes General: appearance normal, both eyes and all related structures Conjunctivae: conjunctivae normal Pupils: PERRL EOM: EOM intact bilaterally Neck Neck: normal visual inspection, no lymphadenopathy and no JVD Carotids: Negative bruit Neck Mass: Negative Neck mass Chest Chest inspection: normal inspection of the chest and symmetric chest movement Auscultation: Bilateral: Clear to Auscultation Cardio Palpation: normal PMI Rate: regular rate Rhythm: regular rhythm Heart sounds: S1 normal and S2 normal; negative rub, gallop or murmur GI GI: normal to inspection, soft, no hepatosplenomegaly and bowel sounds present; negative tender Neuro General: alert, awake, oriented x3, CN's II-XI intact bilaterally and moves all extremities Extremities Pulses: Normal: Right Posterior Tibial Pulse, Left Posterior Tibial Pulse, Right Radial Pulse, Left Radial Pulse Lower Extremity Edema: None: Bilateral Psych Psychological: normal affect Assessment AND Plan 1. Coronary artery disease involving mille lacs coronary artery of mil[place]acs heart without angina pectoris I25.10; I25.10; I25.10 Plan - MER Crouch With patient's non-ST myocardial infarction and no significant coronary artery disease feel that it would be okay for patient to proceed with surgery after she has been on her Plavix for approximately 30 days. After her surgery she can then resume her Plavix. Would like her to be on her Plavix for at least one year. She was also advised that we would like to keep her on aggressive medical management and risk factor modification that is why she is on her cholesterol-lowering medication. Ideally would like for patient to proceed with cardiac rehab however due to her issues with her foot and a possible upcoming surgery do not feel that she will be able to attend this. 2. Essential hypertension I10 Plan - MER Crouch Blood pressure is well controlled on current medications, we do not recommend any changes at this time. 3. Pure hypercholesterolemia E78.00; E78.00; E78.00; E78.0 Plan - MER Crouch Did review risk factor modification. She is agreeable to stay on a cholesterol-lowering medication. We will continue to monitor. Plan Detail Additional Comments - MER Crouch The above patient was discussed with Dr. Prabhakar in Dr. Traylor's absence, he agrees with plan of care. Thank you for allowing us to participate in patient's plan of care, if you have any questions please do not hesitate to call. This note was generated using a voice recognition system and there may be incorrect words, spelling or punctuation errors that were not noted when reviewing the office note prior to saving. Follow Up 3 Months (DJN) 08/15/17 1922 <Electronically signed by Janiya DEL ANGEL> Date Janiya DEL ANGEL 08/17/17 1221<Electronically signed by Dash Prabhakar MD> Cosigner Signature: Date (if applicable) Dash Prabhakar MD CC: Kristian Camp ALLERGIES ALLERGIES DATE TYPE / CODE NAME / CODE REACTION SEVERITY SOURCE 06/09/2018 Drug Sulfa Rash Unknown [facility] Allergy/4160 (Sulfonamide Hospital 26655(SNOMED Antibiotics)/ Repository CT) [id number](RX NORM) ENCOUNTERS ENCOUNTERS ADMIT/DISCHARGE ACCOUNT ADMITTING ENCOUNTER LOCATION SOURCE NUMBER CLASS 07/17/2018 [id number] Ambulatory [facility] ing:LAB Repository 06/09/2018/ [id number] Ambulatory BMSBuilding:B [place] [facility] 2 [facility] Repository 05/07/2018 [id number] Ambulatory [place] 6 [facility] ing:BFHLAB Repository 04/01/2018 [id number] Ambulatory [place] 7 [facility] ing:OPBI Repository 11/06/2017 [id number] Ambulatory [place] 4 [facility] ing:CVS Repository 11/06/2017 [id number] Ambulatory BMSBuilding:W [place] 4 [facility] Repository 11/05/2017/ [id number] Ambulatory BMSBuilding:B [place] 8 1 [facility] Repository 11/01/2017 [id number] Ambulatory [place] 1 [facility] ing:BFHLAB Repository 08/14/2017/ [id number] Ambulatory BMSBuilding:B [place] 7 0 [facility] Repository PAYERS PAYERS ENCOUNTER GUARANTOR PAYER SUBSCRIBER SOURCE 07/17/2018 ROMERO Vazquez Primary ROMERO M [place] [id number] Insurance:MEDICARE GENGODOB: [facility] PART A BPolicy Number: [id number] [id number] Repository [address]446Nhb: (330) Date:2018-07-17 [phone] () 07/17/2018 Secondary ROMERO Avinaoster Insurance:HUMANA GENGODOB: [facility] [id number] Hospital Number: Repository [id number] Date:4840-97-53LX [address] [place] [address]DG: 07/17/2018 Tertiary NOT GIVENUNK [place] Insurance:SELF PAY Community INSURANCEPolicy Hospital Number: Effective Repository Date:2018-07-17 06/09/2018 ROMERO Vazquez Primary ROMERO Vazquez [place] [id number] Insurance:MEDICARE GENGODOB: Community [place] PART A BPolicy Number: [id number] [id number] Repository 47891Zsl: ([phone]) Date:2017-11-05 [phone] () 06/09/2018 Secondary ROMERO Vazquez [place] Insurance:HUMANA GENGODOB: Community COMMERCIALPolicy [id number] Hospital Number: Repository [id number] Date:5706-19-08AH [address] [place] [address]JD: 06/09/2018 Tertiary NOT GIVENUNK [place] Insurance:SELF PAY [facility] Number: Effective Repository Date:2018-03-20 05/07/2018 ROMERO Vazquez Primary ROMERO Vazquez [place] [id number] Insurance:MEDICARE GENGODOB: Community [place] PART A BPolicy Number: [id number], [place] [id number] Repository [address]Mky: ([phone]) Date:2018-05-07 [phone] () 05/07/2018 Secondary ROMERO Vazquez [place] Insurance:HUMANA GENGODOB: [facility] [id number] Hospital Number: Repository [id number] Date:[id number] [address]SN: 05/07/2018 Tertiary NOT GIVENUNK [place] Insurance:SELF PAY [facility] Number: Effective Repository Date:2018-05-07 04/01/2018 ROMERO Vazquez Primary ROMERO Vazquez [place] [id number] Insurance:MEDICARE GENGODOB: [facility] [place] PART A BPolicy Number: [id number], [place] [id number] Repository [address]Myr: ([phone]) Date:2018-03-17 [phone] () 04/01/2018 Secondary ROMERO Vazquez [place] Insurance:HUMANA GENGODOB: [facility] COMMERCIALPolicy [id number] Hospital Number: Repository [id number] Date:8182-79-91FB [address] [place] [address]SU: 04/01/2018 Tertiary NOT GIVENUNK [place] Insurance:SELF PAY [facility] Effective Repository Date:2018-03-17 11/06/2017 ROMERO Vazquez Primary ROMERO Vazquez [place] [id number] Insurance:MEDICARE GENGODOB: Community [place] PART A BPolicy Number: [id number], [place] [id number] Repository [address]98[address]Gjp: ([phone]) Date:2017-11-05 [phone] () 11/06/2017 Secondary ROMERO Vazquez [place] Insurance:HUMANA GENGODOB: Community COMMERCIALPolicy [id number] Hospital Number: Repository [id number] Date:8580-24-80MA[address] [address]WV: 11/06/2017 Tertiary NOT GIVENUNK [place] Insurance:SELF PAY [facility] Number: Effective Repository Date:2017-11-05 11/06/2017 ROMERO Vazquez Primary ROMERO Vazquez [place] [id number] Insurance:MEDICARE GENGODOB: Community [place] PART A BPolicy Number: [id number], [place] [id number] Repository [address]Tmx: (144) Date:2017-11-05 [phone] () 11/06/2017 Secondary ROMERO Vazquez [place] Insurance:HUMANA GENGODOB: Community COMMERCIALPolicy [id number] Hospital Number: Repository [id number] Date:4183-15-77AT[address] [address]WI: 11/06/2017 Tertiary NOT GIVENUNK [place] Insurance:SELF PAY [facility]: Effective Repository Date:2017-11-06 11/05/2017 ROMERO Vazquez Primary ROMERO Vazquez [place] [id number] Insurance:MEDICARE GENGODOB: Community [place] PART A BPolicy Number: [id number], [place] [id number] Repository 915[address]Xqb: ([phone]) Date:2017-08-14 [phone] () 11/05/2017 Secondary ROMERO Vazquez [place] Insurance:HUMANA GENGODOB: Community COMMERCIALPolicy [id number] Hospital Number: Repository [id number] Date:9809-97-29JQ [address] [place] [address]SE: 11/05/2017 Tertiary NOT GIVENUNK [place] Insurance:SELF PAY [facility] Number: Effective Repository Date:2017-08-14 11/01/2017 ROMERO Vazquez Primary ROMERO Vazquez [place] [id number] Insurance:MEDICARE GENGODOB: Community [place] PART A BPolicy Number: [id number], [place] [id number] Repository [address]Euc: ([phone]) Date:2017-11-01 [phone] () 11/01/2017 Secondary ROMERO Vazquez [place] Insurance:HUMANA GENGODOB: Community COMMERCIALPolicy [id number] Hospital Number: Repository [id number] Date:7121-54-84TA [address] [place] [address]OF: 11/01/2017 Tertiary NOT GIVENUNK [place] Insurance:SELF PAY [facility] Number: Effective Repository Date:2017-11-01 08/14/2017 ROMERO Vazquez Primary ROMERO Vazquez [place] [id number] Insurance:MEDICARE GENGODOB: Community [place] PART A BPolicy Number: [id number], [place] [id number] Repository [address]Tfj: ([phone]) Date:2017-07-26 [phone] () 08/14/2017 Secondary ROMERO Vazquez [place] Insurance:HUMANA GENGODOB: Community COMMERCIALPolicy [id number] Hospital Number: Repository [id number] Date:6332-50-37XI [address] [address]SS: 08/14/2017 Tertiary NOT GIVENUNK [place] Insurance:SELF PAY [facility] INSURANCEPolicy Hospital Number: Effective Repository Date:2017-08-14
== END ==
PROVIDERS: Referring Provider Physician Assistant Medical; Visit Provider Physician Assistant Medical
DX: E78.5 Hyperlipidemia, unspecified (principal)
CPT/HCPCS: 36415; 80076

== ENCOUNTER → 2018-10-06 09:16 | Outpatient (CLI) | payer MEDICARE, OTHER, SELFPAY ==
[2018-10-02 15:14] VITALS: BMI 35.9
[2018-10-06 10:19] LABS: Cholesterol 166 mg/dL (200); High Density Lipoprotein 45 mg/dL; Triglycerides 184 mg/dL; Very Low Density Lipoprotein 37 mg/dL (5-40)
[2018-10-09 09:24] LABS: Vitamin D 1,25-Dihydroxy 35.5 pg/mL (19.9-79.3)
== END ==
PROVIDERS: Physician Assistant Medical; Family Provider Internal Medicine; PCP Internal Medicine; Referring Provider Internal Medicine; Visit Provider Internal Medicine
DX: E78.5 Hyperlipidemia, unspecified (principal); E55.9 Vitamin D deficiency, unspecified; I10 Essential (primary) hypertension; I25.10 Atherosclerotic heart disease of native coronary artery without angina pectoris
CPT/HCPCS: 36415; 80061; 82652

== ENCOUNTER → 2018-10-09 13:49 | Outpatient (CLI) | payer MEDICARE, OTHER, SELFPAY ==
[2018-10-02 15:14] VITALS: BMI 35.9
--- NOTE | 2018-10-09 13:57 | BD_ITS ---
STUDY: DUAL ENERGY X-RAY ABSORPTIOMETRY / DXA REASON FOR EXAM: Female, 68 years old. Early menopause. Loss of height. TECHNIQUE: Bone Mineral Density (BMD) measurements of lumbar spine and bilateral hips were obtained. COMPARISON: Comparison is made with prior study dated January 03, 2016. FINDINGS: Lumbar Spine (L1-L4): g/cm2 (1.025) / T-score (-1.2) / Z-score (0.5) Findings are suggestive of osteopenia with a low fracture risk. Increased thoracic kyphosis. Left Femur Total: g/cm2 (0.852) / T-score (-1.2) / Z-score (0.1) Left Femoral Neck: g/cm2 (0.798) / T-score (-1.7) / Z-score (-0.2) Right Femur Total: g/cm2 (0.807) / T-score (-1.6) / Z-score (-0.3) Right Femoral Neck: g/cm2 (0.760) / T-score (-2.0) / Z-score (0.4) The T-Scores on the most recent prior examination were: Lumbar Spine (L1-L4): There has been worsening of bone density since the previous examination. Left Femur Total: which represents an improvement of 5.8%. Right Femur Total: which represents a worsening of 1.7%. BD/Dexa Bone Density Study IMPRESSION: The patient is considered osteopenic as outlined below according to World Max Organization (WHO) criteria with a moderate fracture risk. There has been worsening of bone density since the previous examination. Reference Information: The T-score is the number of standard deviations above or below the standard which is normal for young adults at their peak bone mineral density. The World Health Organization (WHO) interprets the T-scores as follows: Above -1 Normal bone density Between -1 and -2.5 Osteopenia Equal to / or below -2.5 Osteoporosis As a practical clinical guideline, osteopenia may be graded as follows: Mild -1 through -1.5 Moderate -1.6 through -2.0 Severe -2.1 through -2.4 The Z-score is the number of standard deviations above or below age-matched controls. A Z-score of less than -1.5 would be considered abnormal. References: 1. NIH Osteoporosis and Related Bone Diseases http://www.osteo.org 2. International Society for Clinical Densitometry http://www.iscd.org 3. National Osteoporosis Foundation http://www.nof.org Electronically Signed: Rogerio Kirby MD at 15:51 EST , Service support ,
== END ==
PROVIDERS: Family Provider Internal Medicine; PCP Internal Medicine; Visit Provider Internal Medicine
DX: Z78.0 Asymptomatic menopausal state (principal)
CPT/HCPCS: 77080

== ENCOUNTER → 2019-05-21 | Outpatient (CLI) | payer MEDICARE, OTHER, SELFPAY ==
[2019-04-02 13:51] VITALS: BMI 33.2
[2019-04-21 15:34] VITALS: BMI 33.0
--- NOTE | 2019-05-21 13:16 | BI_ITS ---
MAMMOGRAPHY - BILATERAL SCREENING REASON FOR EXAM: Female, 69 years old. Routine annual screening examination. PERTINENT HISTORY: Non-contributory. TECHNIQUE: Digital bilateral breast mars (3D mammographic acquisition) in the CC and MLO projections. 2-D mediolateral oblique (MLO) and craniocaudad (CC) views of both breasts were obtained. CAD: Full Field Digital Mammography with Computer Added Detection was performed. COMPARISON: Comparison is made with prior study dated April 01, 2018 and March 06, 2017.. FINDINGS: Breast Composition: The breasts are almost entirely fatty. There are no dominant masses or suspicious calcifications. No other significant abnormalities are identified. There has been no significant change since the prior study. BI/SCREEN MAMM (CAD) W/AMRS BILAT IMPRESSION: Stable bilateral screening mammogram. Yearly follow-up mammogram recommended. (A) ASSESSMENT CATEGORY: BIRADS Category 1: Negative. A letter regarding these results will be sent to the patient by the facility within 30 days. Approximately 10% of breast cancers are not detected by mammography. A normal mammogram should not delay biopsy of a clinically suspicious abnormality. [id number] Electronically Signed: Rogerio Kirby, at 15:09 EDT , Service support ,
[2019-05-21 14:50] LABS: Thyroid Stim Hormone (TSH) 0.88 uIU/mL (0.358-3.74)
== END | disposition home or self-care (01) ==
PROVIDERS: Family Provider Internal Medicine; PCP Internal Medicine; Referring Provider Internal Medicine; Visit Provider Internal Medicine
DX: E03.9 Hypothyroidism, unspecified (principal); Z12.31 Encounter for screening mammogram for malignant neoplasm of breast
CPT/HCPCS: 36415; 77063; 77067; 84443

== ENCOUNTER → 2019-07-29 10:40 | Outpatient (CLI) | payer MEDICARE, OTHER, SELFPAY ==
[2019-07-09 09:55] VITALS: BMI 32.5
--- NOTE | 2019-07-29 10:42 | ECHOD_ITS ---
Reason For Study: TIA/CVA Procedure This was a 2D Doppler, Color Flow transthoracic echocardiogram. Exam performed in department. Left Ventricle Normal size and thickness. The estimated ejection fraction is 65 %. Stage 1 diastolic dysfunction. No regional wall motion abnormalities noted. Right Ventricle Mildly dilated right ventricle. Normal systolic function. Atria Normal left atrium. Normal right atrium. Probable patent foramen ovale. Saline contrast study demonstrates trivial right to left interatrial shunt. Mitral Valve Mild focal mitral valve calcification of the anterior leaflet. Tricuspid Valve Normal tricuspid valve. Trivial tricuspid valve insufficiency. Right ventricular systolic pressure estimated to be 29 mmHg. Aortic Valve Trisinus/trileaflet aortic valve. Normal aortic valve. Pulmonic Valve Normal pulmonic valve. Great Vessels Normal aortic root. Normal arch. Normal inferior vena cava. Inferior vena cava collapse with sniff. Pericardium/Pleural No pericardial effusion. Medication 22 gauge I.V. with prn adaptor inserted into right arm. Performed a rapid injection of agitated mix of 9 cc saline and 1cc air to assess for atrial septal defect. MMode/2D Measurements & Calculations LVIDd: 3.7 cm IVSd: 0.91 cm Ao root diam: 3.5 cm LVIDs: 2.7 cm LVPWd: 0.99 cm RVDd: 3.8 cm FS: 26.8 % LAV(MOD-bp): 41.7 ml LVAd ap4: 24.2 cm2 SV(MOD-sp4): 35.9 ml LAV(MOD-bp) Indexed: 20.8 ml/m2 EDV(MOD-sp4): 64.5 ml LAV(MOD-sp2): 40.8 ml EDV(sp4-el): 66.7 ml LAV(MOD-sp4): 31.7 ml LVAs ap4: 15.0 cm2 ESV(MOD-sp4): 28.6 ml ESV(sp4-el): 29.8 ml EF(MOD-sp4): 55.7 % EF(sp4-el): 55.4 % SV(sp4-el): 36.9 ml LA A4 area: 13.1 cm2 LA dimension(2D): 3.3 cm RA A4 area: 12.1 cm2 Time Measurements MV dec time: 0.28 sec Doppler Measurements & Calculations MV E max ezio: 50.8 cm/sec Lat Peak E' Ezio: 9.3 cm/sec Med Peak E' Ezio: 6.5 cm/sec MV A max ezio: 93.4 cm/sec E/E' lat: 5.5 E/E' med: 7.9 MV E/A: 0.54 Ao V2 max: 129.4 cm/sec AI max ezio: 393.6 cm/sec LV V1 max: 97.8 cm/sec Ao max P.7 mmHg AI max P.0 mmHg LV V1 max P.8 mmHg AI dec slope: 210.5 cm/sec2 AI P1/2t: 547.7 msec PA V2 max: 86.9 cm/sec TR max ezio: 243.0 cm/sec TR max P.6 mmHg Interpretation Summary The estimated ejection fraction is 65 %. Stage 1 diastolic dysfunction. Mildly dilated right ventricle. Probable patent foramen ovale. Saline contrast study demonstrates trivial right to left interatrial shunt. Trivial tricuspid valve insufficiency. Right ventricular systolic pressure estimated to be 29 mmHg. Compared to echo report dated 09/04/2005, no appreciable changes noted. Ordering Physician: Rashi Traylor Referring Physician: SRINIVAS HARKINS Performed By: Lalitha Benjamin RDCS
[2019-07-29 11:33] LABS: AST(SGOT) 32 U/L (15-37); Alanine Aminotransfer ALT/SGPT 35 U/L (13-56); Albumin, Serum 3.9 g/dL (3.2-5.0); Alkaline Phosphatase 71 U/L (45-117); Bilirubin, Direct 0.19 mg/dL (0.00-0.30); Cholesterol 161 mg/dL (200); Globulin 3.3 g/dL (2.2-4.2); High Density Lipoprotein 51 mg/dL; Protein, Total 7.2 g/dL (6.4-8.2); Triglycerides 139 mg/dL; Very Low Density Lipoprotein 28 mg/dL (5-40)
== END ==
PROVIDERS: Family Provider Internal Medicine; PCP Internal Medicine; Referring Provider Internal Medicine Cardiovascular Disease; Visit Provider Internal Medicine Cardiovascular Disease
DX: I25.10 Atherosclerotic heart disease of native coronary artery without angina pectoris (principal); I21.4 Non-ST elevation (NSTEMI) myocardial infarction; E78.5 Hyperlipidemia, unspecified; Z86.73 Personal history of transient ischemic attack (TIA), and cerebral infarction without residual deficits
CPT/HCPCS: 36415; 80061; 80076; 93306; A4216

== ENCOUNTER → 2020-02-04 | Outpatient (CLI) | payer MEDICARE, OTHER, SELFPAY ==
[2020-02-04 11:31] VITALS: BMI 33.4
[2020-02-04 13:25] LABS: Anion Gap 6 (5-15); BUN 24 mg/dL (7-18); BUN/Creat Ratio 23.5 RATIO (10-20); Calcium,Total 9.1 mg/dL (8.5-10.1); Chloride 105 mmol/L (98-107); Creatinine, Serum 1.02 mg/dL (0.55-1.02); EST Glomerular Filtration Rate 57 mL/min (>60); Est Glom Filt Rate - Afr Amer 69 mL/min (>60); Glucose 97 mg/dL (74-106); Magnesium 2.1 mg/dL (1.6-2.6); Potassium 4.4 mmol/L (3.5-5.1); Sodium Level 138 mmol/L (136-145); Thyroid Stim Hormone (TSH) 1.48 uIU/mL (0.358-3.74)
== END | disposition home or self-care (01) ==
LOC: LAB 12:10
PROVIDERS: PCP Internal Medicine; Visit Provider Physician Assistant Medical
DX: E78.00 Pure hypercholesterolemia, unspecified (principal); R25.2 Cramp and spasm
CPT/HCPCS: 36415; 80048; 83735; 84443

== ENCOUNTER → 2020-05-25 | Outpatient (CLI) | payer MEDICARE, OTHER, SELFPAY ==
[2020-04-06 13:34] VITALS: BMI 32.5
--- NOTE | 2020-05-25 10:42 | BI_ITS ---
MAMMOGRAPHY - BILATERAL SCREENING REASON FOR EXAM: Female, 70 years old. Routine annual screening examination. PERTINENT HISTORY: NO FAM HX - NO PREV SURG''S - RT AXILLARY SKIN TAG MARKED TECHNIQUE: Digital bilateral breast mars (3D mammographic acquisition) in the CC and MLO projections. 2-D mediolateral oblique (MLO) and craniocaudad (CC) views of both breasts were obtained. CAD: Full Field Digital Mammography with Computer Added Detection was performed. COMPARISON: 05/21/2019 and 04/01/2018 FINDINGS: Breast Composition: There are no dominant masses or suspicious calcifications. No other significant abnormalities are identified. BI/SCREEN MAMM (CAD) W/MARS BILAT IMPRESSION: Stable bilateral screening mammogram. Yearly follow-up mammogram recommended. (A) ASSESSMENT CATEGORY: BIRADS Category 2: Benign. A letter regarding these results will be sent to the patient by the facility within 30 days. Approximately 10% of breast cancers are not detected by mammography. A normal mammogram should not delay biopsy of a clinically suspicious abnormality. [id number] Electronically Signed: Julio Das, at 13:14 EDT Tel , Service support ,
[2020-05-25 11:50] LABS: Anion Gap 4 (5-15); BUN 18 mg/dL (7-18); BUN/Creat Ratio 19.4 RATIO (10-20); Calcium,Total 9.3 mg/dL (8.5-10.1); Chloride 104 mmol/L (98-107); Creatinine, Serum 0.93 mg/dL (0.55-1.02); EST Glomerular Filtration Rate 64 mL/min (>60); Est Glom Filt Rate - Afr Amer 77 mL/min (>60); Glucose 107 mg/dL (74-106); Potassium 4.2 mmol/L (3.5-5.1); Sodium Level 136 mmol/L (136-145)
== END | disposition home or self-care (01) ==
LOC: OPBI 10:42
PROVIDERS: PCP Internal Medicine; Referring Provider Internal Medicine; Visit Provider Internal Medicine
DX: I10 Essential (primary) hypertension (principal); Z12.31 Encounter for screening mammogram for malignant neoplasm of breast
CPT/HCPCS: 36415; 77063; 77067; 80048

== ENCOUNTER 2020-10-05 13:30 | Outpatient (RCR) | payer MEDICARE, OTHER, SELFPAY ==
[2020-09-28 10:35] VITALS: BMI 33.5
== END 2020-10-05 23:59 ==
LOC: IMMUN 13:30
PROVIDERS: PCP Internal Medicine; Visit Provider Family Medicine
DX: Z23 Encounter for immunization (principal)
CPT/HCPCS: 0011A; 0012A; 91301

== ENCOUNTER → 2020-10-13 08:30 | Outpatient (CLI) | payer MEDICARE, OTHER, SELFPAY ==
[2020-10-05 10:42] VITALS: BMI 33.5
[2020-10-13 08:53] LABS: Absolute Lymphocyte Count 2.27 X10^3/uL (0.83-4.51); Absolute Neutrophil Count 3.1 X10^3/uL (2.0-7.7); Basophil# 0.04 X10^3/uL; Basophil% 0.7 % (0-1); Eosinophil# 0.28 X10^3/uL; Eosinophils% 4.6 % (0-5); Hematocrit 40.8 % (37-47); Hemoglobin 13.4 g/dL (12.0-15.0); Lymphocyte # 2.27 X10^3/ul (4.0); Mean Corp Hgb Conc 32.8 g/dL (32-36); Mean Corpuscular Hgb 30.7 pg (27.0-32.0); Mean Corpuscular Volume 93.6 fL (81-99); Mean Platelet Vol. 9.2 fl (6.2-12.0); Monocyte# 0.47 X10^3/uL; Monocyte% 7.7 % (0-10); NRBC Flagged by Analyzer 0 % (0-5); Neutrophil # 3.05 X10^3/uL (2.7-7.7); Neutrophil % 49.7 % (47-70); Platelet Count 225 K/mm3 (150-450); RBC Distribution Width SD 41.4 fl (35.1-43.9); Red Blood Count 4.36 M/mm3 (4.2-5.4); White Blood Count 6.1 K/mm3 (4.4-11.0)
--- NOTE | 2020-10-13 08:54 | BD_ITS ---
STUDY: DUAL ENERGY X-RAY ABSORPTIOMETRY / DXA REASON FOR EXAM: Female, 70 years old. 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 COMPARISON: Comparison is made with prior study dated 10/09/2018. FINDINGS: Lumbar Spine (L1-L4): g/cm2 (1.013) / T-score (-1.3) / Z-score (0.4) Findings are suggestive of osteopenia with a low fracture risk. Left Femur Total: g/cm2 (0.805) / T-score (-1.6) / Z-score (-0.2) Left Femoral Neck: g/cm2 (0.749) / T-score (-2.1) / Z-score (-0.4) Right Femur Total: g/cm2 (0.823) / T-score (-1.5) / Z-score (0.0) Right Femoral Neck: g/cm2 (0.738) / T-score (-2.2) / Z-score (-0.5) The T-Scores on the most recent prior examination were: Lumbar Spine (L1-L4): There has been worsening of bone density since the previous examination. Left Femur Total: which represents a worsening of 5.5%. Right Femur Total: which represents an improvement of 2%. BD/Dexa Bone Density Study IMPRESSION: The patient is considered osteopenic as outlined below according to World Max Organization (WHO) criteria with a high fracture risk. There has been worsening of bone density since the previous examination. Reference Information: The T-score is the number of standard deviations above or below the standard which is normal for young adults at their peak bone mineral density. The World Health Organization (WHO) interprets the T-scores as follows: Above -1 Normal bone density Between -1 and -2.5 Osteopenia Equal to / or below -2.5 Osteoporosis As a practical clinical guideline, osteopenia may be graded as follows: Mild -1 through -1.5 Moderate -1.6 through -2.0 Severe -2.1 through -2.4 The Z-score is the number of standard deviations above or below age-matched controls. A Z-score of less than -1.5 would be considered abnormal. References: 1. NIH Osteoporosis and Related Bone Diseases www osteo.org 2. International Society for Clinical Densitometry www iscd.org 3. National Osteoporosis Foundation www nof.org Electronically Signed: Rogerio Kirby MD at 9:43 EST , Service support ,
[2020-10-13 09:29] LABS: AST(SGOT) 25 U/L (15-37); Alanine Aminotransfer ALT/SGPT 28 U/L (13-56); Albumin, Serum 3.5 g/dL (3.2-5.0); Alkaline Phosphatase 60 U/L (45-117); Anion Gap 5 (5-15); BUN 22 mg/dL (7-18); BUN/Creat Ratio 22.2 RATIO (10-20); Bilirubin, Direct 0.18 mg/dL (0.00-0.30); Calcium,Total 9.2 mg/dL (8.5-10.1); Chloride 105 mmol/L (98-107); Cholesterol 160 mg/dL (200); Creatinine, Serum 0.99 mg/dL (0.55-1.02); EST Glomerular Filtration Rate 59 mL/min (>60); Est Glom Filt Rate - Afr Amer 71 mL/min (>60); Globulin 3.5 g/dL (2.2-4.2); Glucose 107 mg/dL (74-106); High Density Lipoprotein 49 mg/dL; Potassium 3.8 mmol/L (3.5-5.1); Sodium Level 138 mmol/L (136-145); Thyroid Stim Hormone (TSH) 1.66 uIU/mL (0.358-3.74); Triglycerides 128 mg/dL; Very Low Density Lipoprotein 26 mg/dL (5-40)
== END ==
PROVIDERS: PCP Internal Medicine; Referring Provider Internal Medicine; Visit Provider Internal Medicine
DX: I10 Essential (primary) hypertension (principal); E78.5 Hyperlipidemia, unspecified; E03.9 Hypothyroidism, unspecified; E78.00 Pure hypercholesterolemia, unspecified; I25.10 Atherosclerotic heart disease of native coronary artery without angina pectoris; Z78.0 Asymptomatic menopausal state
CPT/HCPCS: 36415; 77080; 80053; 80061; 82248; 84443; 85025

== ENCOUNTER → 2021-01-04 10:04 | Outpatient (CLI) | payer MEDICARE, OTHER, SELFPAY ==
[2020-10-31 09:20] VITALS: BMI 34.2
--- NOTE | 2021-01-04 10:07 | EKG12_ITS ---
Test Reason : PRE-OP Blood Pressure : / mmHG Vent. Rate : 085 BPM Atrial Rate : 085 BPM P-R Int : 164 ms QRS Dur : 080 ms QT Int : 372 ms P-R-T Axes : 021 -36 054 degrees QTc Int : 442 ms Sinus rhythm with sinus arrhythmia with occasional Premature ventricular complexes Left axis deviation Low voltage QRS (Limb Leads) Poor R wave progression Inferior infarct , age undetermined Abnormal ECG Confirmed by FOZIA ALVAREZ, FATEMEH ([id number]), editorial cartoonist SHIRIN PAGAN ([id number]) on 01/06/2021 11:21:15 A M Referred By: Patricio Cevallos Confirmed By:SOY MARCELO MD
--- NOTE | 2021-01-04 10:55 | RAD_ITS ---
STUDY: X-RAY CHEST REASON FOR EXAM: Female, 70 years old. Preop for knee surgery TECHNIQUE: PA and lateral views of the chest. COMPARISON: 05/24/2017 FINDINGS: Lungs are mildly hyperexpanded with chronic interstitial changes, no superimposed acute pulmonary process. There is no demonstrated pleural abnormality. Normal size heart. Normal mediastinum and carlos. Normal visualized pulmonary arteries. Normal visualized aortic arch and descending thoracic aorta. There are diffuse degenerative changes of the visualized thoracic spine. Normal visualized ribs, clavicles, and shoulders. There is no demonstrated abnormality of the visualized soft tissue structures of the upper abdomen. RAD/Chest PA and Lateral IMPRESSION: Mildly hyperexpanded lungs without a superimposed acute pulmonary process. Electronically Signed: Javier Lopez MD at 11:32 EDT , Service support ,
== END ==
PROVIDERS: PCP Internal Medicine; Referring Provider Orthopaedic Surgery; Visit Provider Orthopaedic Surgery
DX: Z01.810 Encounter for preprocedural cardiovascular examination (principal)
CPT/HCPCS: 71046; 93005

== ENCOUNTER 2021-03-27 05:26 | Day surgery (SDC) | payer MEDICARE, OTHER, SELFPAY ==
[2021-03-21 14:11] VITALS: BMI 34.2
[2021-03-27 05:46] VITALS: BP 110/74; PULSE 71; RESP 16; TEMP 36.3; O2SAT 97; BMI 32.9
[2021-03-27] MEDS: Lactated Ringers 1,000 ML 100 ML IV (06:05)
--- NOTE | 2021-03-27 06:06 | PCM.HP.BLA ---
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 Required: No Accompanied by: Self Is patient in pain?: No Allergies Sulfa (Sulfonamide Antibiotics) Allergy (Verified 03/21/21 14:13) Rash Medications rgjmbxhwztcr-Ex-munt-minerals 1 ea PO DAILY 03/27/15 [History Confirmed 03/21/21] aspirin 81 mg PO DAILY@0800 #90 tab.chew 07/26/17 [Rx Confirmed 03/21/21] cholecalciferol (vitamin D3) 50 mcg (2,000 unit) capsule 2,000 unit PO DAILY 09/10/18 [History Confirmed 03/21/21] famotidine 10 mg tablet 10 mg PO DAILY PRN 07/09/19 [History Confirmed 03/21/21] lisinopril 20 mg-hydrochlorothiazide 12.5 mg tablet 0.5 tab PO .QD #90 tab 06/27/20 [Rx Confirmed 03/21/21] meloxicam 15 mg tablet 15 mg PO DAILY PRN #90 tab 08/04/20 [Rx Confirmed 03/21/21] levothyroxine 75 mcg tablet 75 mcg PO DAILY #90 tab 10/12/20 [Rx Confirmed 03/21/21] atorvastatin 20 mg tablet 20 mg PO QHS #90 tab 01/10/21 [Rx Confirmed 03/21/21] alendronate 35 mg tablet 35 mg PO QWEEK #30 tab 02/06/21 [Rx Confirmed 03/21/21] metoprolol tartrate 25 mg tablet 12.5 mg PO BID #90 tab 03/13/21 [Rx Confirmed 03/21/21] zolpidem 10 mg tablet 5 mg PO QHS PRN #30 tab 03/13/21 [Rx Confirmed 03/21/21] estradiol 1 g VAGINAL .COMPLEX #42.5 g 03/14/21 [Rx Confirmed 03/21/21] psyllium husk 0.52 gram capsule 0.52 g PO DAILY PRN 03/21/21 [History Confirmed 03/21/21] FORMERLY [facility], 1928–1983 Medical History (Updated 03/21/21 @ 05:[address] Alphonso Milian MD) Arthritis Atherosclerosis of coronary artery of craig heart without angina pectoris Carpal tunnel syndrome GERD (gastroesophageal reflux disease) Hyperlipidemia Hypertension Neuropathy Non-STEMI (non-ST elevated myocardial infarction) (~07/2017) Osteopenia Preoperative evaluation to rule out surgical contraindication Psoriasis Thyroid disease TIA (transient ischemic attack) Surgical History (Updated 03/21/21 @ 14:11 by Dilcia Jackson) History of bladder suspension procedure History of carpal tunnel surgery of right wrist History of colonoscopy (07/02/17) History of foot surgery History of hysterectomy History of tonsillectomy and adenoidectomy History of tubal ligation Family History Brother Alcoholism Myocardial infarction Kidney disease Multiple myeloma Mother Arthritis Blood clot in vein Father Cancer Renal & Skin Kidney disease Social History (Updated 03/21/21 @ 14:11 by Dilcia Jackson) Smoking Status: Never smoker second hand exposure: No alcohol intake: current alcohol intake frequency: a few times a week Alcohol type: wine substance use type: does not use caffeine: Yes frequency: 3-4 times per week HPI HPI HPI: ROMERO PONCE, is a 70 F who presents to the office today for surgical consultation regarding rectal bleeding. The patient is referred by Dr. Fernando Jacobs and a written copy my surgical consult recommendations will return to her Most recent laboratory October 13, 2020 demonstrates a white blood cell count was 6.1 with a hemoglobin 13.4 hematocrit of 40.8 and a platelet count of 225,000. At that time BUN was 22 and creatinine 0.99. Her most recent colonoscopy was performed July 02, [address] Isaac Paez. That was a high rescreening based upon the history of colon polyps. At that time moderate diverticular disease throughout the sigmoid area was identified and scattered diverticula in the transverse and right colon. Normal-appearing cecum. Some small internal hemorrhoids were noted. She was noted to have redundancy of the sigmoid colon. Among her other medications she is on aspirin and famotidine 10 mg daily. Patient states that her most recent colonoscopy done by Dr. Isaac Paez left her with severe abdominal pain for 3 days. She states that she had not experienced anything like that prior. She has had a myocardial infarction. Apparently this was secondary to vasospastic spasm and stress. She does not have any stents in place. She does take an 81 mg aspirin daily. She is scheduled to have right knee surgery within 3 weeks. She would prefer not to have a MiraLAX prep ROS General General: No weight change, appetite, fatigue, colon cancer, breast cancer or weakness HEENT HEENT: No difficulty swallowing, eye injury, eye surgery, swollen glands or hoarseness Endo Endocrine: No thyroid disease, diabetes mellitus, thyroid cancer, Hair loss, heat intolerance or cold intolerance Skin Skin: No rash or changing moles Musc Musculoskeletal: Yes arthritis; No back problems, rheumatoid arthritis, gout or joint pain Cardio Cardiovascular: Yes high blood pressure and heart attack; No murmur, pacemaker, heart disease, atrial fibrillation, heart stent, palpitations, shortness of breat with exertion or chest pain Psych Psychiatric: No depression, anxiety or hearing voices Resp Respiratory: No shortness of breath, No sleep apnea, No cough, No COPD, No asthma, No emphysema and No wheezing Gastro Gastrointestinal: No abdominal pain, No nausea or vomiting, No diarrhea, Yes constipation, Yes blood in stool, Yes acid reflux, No hemorrhoids, No ulcers, No gallbladder problem and No black,tarry stools Kye Hematologic: No blood thinners, No blood disorders, No bleeding, No anemia and No blood clots Neuro Neurologic: Yes numbness, Yes tingling and No weakness Exam Const General: cooperative, comfortable and no acute distress Nutritional Appearance: overweight Orientation: alert and awake HENMT Head: normal to inspection Resp Effort & Inspection: normal respiratory effort Auscultation: clear to auscultation bilaterally Cardio Rate: regular rate Rhythm: regular rhythm GI Inspection: normal to inspection Palpation: no hepatosplenomegaly Skin General: no rashes or lesions noted Neuro Cognition: normal cognition Extrem Other: Mild bilateral lower extremity pitting swelling Psych Appearance: grossly normal Assessment and Plan Assessment and Plan (1) Rectal bleeding: Status: Acute Plan - Dr. Alphonso Milian MD: I recommended the patient a colonoscopy with possible biopsy or polypectomy as indicated. Anticipate utilizing the scope. I would anticipate monitored incision care. We will utilize her midline thyroid. Great care will be utilized to limit tension upon the mesentery. She has had an opportunity to ask questions answered. Because of her upcoming knee surgery we will try to expedite her care. Very careful inspection for potential source of blood per rectum will be pursued. She is aware of the technique, benefit from risk of alternatives. We will schedule and proceed as noted. Copy:Dr. Fernando Milian M.D., F.A.C.S. Coding Level of Care Code Prob focused, straight fwd Diagnoses Rectal bleeding K62.5 I have re-examined the patient. There are no clinical changes since date of exam. Alphonso Milian M.D., F.A.C.S.
--- NOTE | 2021-03-27 06:30 | COLBX_PTH ---
PATIENT: ROMERO PONCE LOC: [facility] U#:[id number] AGE/SX: 70/F ROOM: RE03/27/[address]: Dr. Alphonso Milian MD : 1950 BED: DIS: 03/27/2021 SPEC #: [id number] RECD: 03/27/21 11:15 STATUS: RAMILA ALEXIS #: [id number] PANTERA: 03/27/21 06:[address]: Alphonso Milian DEPT: SURGICAL PATHOLOGY RECD BY: Patricia Pak ENTERED: 03/27/21 13:53 SP TYPE: COLON BX LATOYA DR: Dr. Fernando Jacobs MD Tissues: A - COLON BIOPSY B - Transverse colon C - Rectum, NOS Procedures: Surgery Specimen Level IV HEADER OPERATION: Colonoscopy (MAC) PRE-OP DIAGNOSIS: Rectal bleeding TISSUE SUBMITTED: A ? Hepatic flexure polyp biopsy, B ? Proximal transverse polyp biopsy, C ? Proximal rectum polyp biopsy MICROSCOPIC DIAGNOSIS A. Hepatic flexure polyp, biopsy: A fragment of colonic mucosa, no pathologic diagnosis. B. Proximal transverse colon polyp, biopsy: A fragment of colonic mucosa, no pathologic diagnosis. C. Proximal rectum polyp, biopsy: Tubular adenoma. LAVELL:elan 03/28/2021 MICROSCOPIC DESCRIPTION Slides are reviewed. GROSS DESCRIPTION A - Received in fixative is one container labeled with the patient's name and designated hepatic flexure polyp biopsy. The specimen consists of one irregular fragment of light warner soft tissue that measures 0.3 x 0.3 x 0.1 cm. The specimen is totally submitted in one cassette. B - Received in fixative is one container labeled with the patient's name and designated proximal transverse polyp biopsy. The specimen consists of one irregular fragment of light warner soft tissue that measures 0.3 x 0.3 x 0.1 cm. The specimen is totally submitted in one cassette. C - Received in fixative is one container labeled with the patient's name and designated proximal rectum polyp biopsy. The specimen consists of one irregular fragment of light warner soft tissue that measures 0.3 x 0.2 x 0.1 cm. The specimen is totally submitted in one cassette. / LAVELL:elan 03/27/21 TC:1 CPT: 96943 x3
[2021-03-27 07:10] VITALS: BP 100/71; BP 110/74; PULSE 69; RESP 14; TEMP 36.4; O2SAT 96
--- NOTE | 2021-03-27 07:10 | OP.CCLET_ITS ---
03/27/2021 Fernando Jacobs MD [address] [place] [address] [place] [address] Re : Colonoscopy procedure for Shamika Gray Dear Dr. Jacobs This procedure was performed on Saturday, March 27, 2021. My impressions and recommendations are as follows: Impressions : - Non-thrombosed internal hemorrhoids and internal hemorrhoids that prolapse with straining, but spontaneously regress to the resting position (Grade II) found on digital rectal exam. - One 6 mm polyp at the hepatic flexure, removed with a cold biopsy forceps. Resected and retrieved. - One 5 mm polyp in the proximal transverse colon, removed with a cold biopsy forceps. Resected and retrieved. - One 5 mm polyp in the rectum, removed with a cold biopsy forceps. Resected and retrieved. - Diverticulosis in the entire examined colon. - Tortuous colon. Recommendations : - Discharge patient to home. - Resume previous diet. - Continue present medications. - Repeat colonoscopy in 5 years for surveillance based on pathology results. - Telephone my office for pathology results in 1 week. Suspect internal hemorrhoids as source of rectal bleeding; no fissure identified, no active bleeding at this time. Conservative treatment will be recommended My findings are described in the full procedure note, which is enclosed. If I can be of further assistance, please feel free to contact me at Doctor phone number(s): Work: . Sincerely, Alphonso Milian MD 03/27/2021 7:09:21 AM This report has been signed electronically.
--- NOTE | 2021-03-27 07:10 | OP.COLON_ITS ---
Patient Name: Shamika Gray Procedure Date: 03/27/2021 6:12 AM Date of : 1950 Age: 70 Procedure: Colonoscopy Indications: Rectal bleeding Providers: Alphonso Milian MD Referring MD: Fernando Jacobs MD Medicines: See the Anesthesia note for documentation of the administered medications Patient Profile: Last Colonoscopy: 2016. Complications: No immediate complications. Procedure: Pre-Anesthesia Assessment: - Prior to the procedure, a History and Physical was performed, and patient medications and allergies were reviewed. The patient's tolerance of previous anesthesia was also reviewed. The risks and benefits of the procedure and the sedation options and risks were discussed with the patient. All questions were answered, and informed consent was obtained. Prior Anticoagulants: The patient has taken no previous anticoagulant or antiplatelet agents. ASA Grade Assessment: II - A patient with mild systemic disease. After reviewing the risks and benefits, the patient was deemed in satisfactory condition to undergo the procedure. After I obtained informed consent, the scope was passed under direct vision. Throughout the procedure, the patient's blood pressure, pulse, and oxygen saturations were monitored continuously. The Colonoscope was introduced through the anus and advanced to the cecum, identified by appendiceal orifice and ileocecal valve. The colonoscopy was performed with moderate difficulty due to a tortuous colon. The patient tolerated the procedure well. The quality of the bowel preparation was good. Scope In: 6:36:03 AM Scope Withdrawal Time 0 hours 14 minutes 13 seconds Scope Out: 7:03:17 AM Total Procedure Duration Time 0 hours 27 minutes 14 seconds Findings: The digital rectal exam findings include non-thrombosed internal hemorrhoids and internal hemorrhoids that prolapse with straining, but spontaneously regress to the resting position (Grade II). Pertinent negatives include no palpable rectal lesions. A 6 mm polyp was found in the hepatic flexure. The polyp was sessile. The polyp was removed with a cold biopsy forceps. Resection and retrieval were complete. A 5 mm polyp was found in the proximal transverse colon. The polyp was sessile. The polyp was removed with a cold biopsy forceps. Resection and retrieval were complete. A 5 mm polyp was found in the rectum. The polyp was sessile. The polyp was removed with a cold biopsy forceps. Resection and retrieval were complete. Multiple diverticula were found in the entire colon. The sigmoid colon was significantly tortuous. Advancing the scope required changing the patient to a supine position and using manual pressure. Impression: - Non-thrombosed internal hemorrhoids and internal hemorrhoids that prolapse with straining, but spontaneously regress to the resting position (Grade II) found on digital rectal exam. - One 6 mm polyp at the hepatic flexure, removed with a cold biopsy forceps. Resected and retrieved. - One 5 mm polyp in the proximal transverse colon, removed with a cold biopsy forceps. Resected and retrieved. - One 5 mm polyp in the rectum, removed with a cold biopsy forceps. Resected and retrieved. - Diverticulosis in the entire examined colon. - Tortuous colon. Recommendation: - Discharge patient to home. - Resume previous diet. - Continue present medications. - Repeat colonoscopy in 5 years for surveillance based on pathology results. - Telephone my office for pathology results in 1 week. Suspect internal hemorrhoids as source of rectal bleeding; no fissure identified, no active bleeding at this time. Conservative treatment will be recommended Procedure Code(s): --- Professional --- 98700, Colonoscopy, flexible; with biopsy, single or multiple Diagnosis Code(s): --- Professional --- K64.1, Second degree hemorrhoids D12.3, Benign neoplasm of transverse colon (hepatic flexure or splenic flexure) K62.1, Rectal polyp K62.5, Hemorrhage of anus and rectum K57.30, Diverticulosis of large intestine without perforation or abscess without bleeding Q43.8, Other specified congenital malformations of intestine CPT copyright 2017 [employer]. All rights reserved. The codes documented in this report are preliminary and upon solar energy sales specialist review may be revised to meet current compliance requirements. Alphonso Milian MD 03/27/2021 7:09:21 AM This report has been signed electronically. Number of Addenda: 0 Note Initiated On: 03/27/2021 6:12 AM
[2021-03-27 07:15] VITALS: BP 110/74; BP 98/60; PULSE 69; RESP 16; O2SAT 95
[2021-03-27 07:18] VITALS: BP 100/57; BP 110/74; PULSE 70; RESP 16; O2SAT 96
[2021-03-27 07:27] VITALS: BP 110/74; BP 92/56; PULSE 68; RESP 16; TEMP 36.1; O2SAT 96
[2021-03-27 07:48] VITALS: BP 110/74
== END 2021-03-27 07:48 | disposition home or self-care (01) ==
LOC: EN 05:26 → AC 05:27
PROVIDERS: PCP Internal Medicine; Referring Provider Internal Medicine; Visit Provider Surgery
PROC: 0DJD8ZZ Inspection of Lower Intestinal Tract, Via Natural or Artificial Opening Endoscopic (ICD-10-PCS; CPT 45378; principal; 2021-03-27 06:25)
DX: D12.8 Benign neoplasm of rectum (principal); K57.30 Diverticulosis of large intestine without perforation or abscess without bleeding; K64.1 Second degree hemorrhoids; M19.90 Unspecified osteoarthritis, unspecified site; I25.10 Atherosclerotic heart disease of native coronary artery without angina pectoris; K21.9 Gastro-esophageal reflux disease without esophagitis; E78.5 Hyperlipidemia, unspecified; I10 Essential (primary) hypertension; E07.9 Disorder of thyroid, unspecified; Z86.73 Personal history of transient ischemic attack (TIA), and cerebral infarction without residual deficits; Z86.010 Personal history of colon polyps; Z79.899 Other long term (current) drug therapy
CPT/HCPCS: 45380; 88305; J7120; J2405

== ENCOUNTER → 2021-04-05 10:04 | Outpatient (CLI) | payer MEDICARE, OTHER, SELFPAY ==
[2021-03-21 14:11] VITALS: BMI 34.2
== END ==
PROVIDERS: PCP Internal Medicine; Referring Provider Physician Assistant; Visit Provider Physician Assistant
DX: Z20.822 Contact with and (suspected) exposure to COVID-19 (principal)
CPT/HCPCS: 87635; C9803; U0005; U0003

== ENCOUNTER 2021-05-31 08:46 | Emergency (ER) | payer MEDICARE, OTHER, SELFPAY ==
[2021-05-31 08:47] VITALS: BP 119/94; PULSE 118; RESP 16; TEMP 35.6; O2SAT 95; BMI 32.4
--- NOTE | 2021-05-31 09:06 | EDS_ITS ---
HPI HPI - GI History of Present Illness Chief Complaint: GI Bleed Informant: patient and spouse/S.O. Abdominal Pain/Flank Pain Onset: Yesterday Context: Gradual Onset Timing: Intermittent Current Severity: Mild Maximum Severity: Mild Nausea/Vomiting/Emesis GI Symptom: Positive for Nausea and Vomiting Onset: Today Severity: Mild Diarrhea/Melena/Hematochezia GI Symptom: Positive for Diarrhea and Hematochezia; Negative for Melena Onset: Yesterday Severity: Mild Associated Symptoms Associated Symptoms: Negative for Dysuria and Frequency Narrative Narrative: 71-year-old states that she has had queasy abdominal discomfort for last several weeks that seemed to resolveFemale takes daily aspirin. And yesterday noticed bright red blood per rectum. She had a colonoscopy in March had several polyps removed at that time. Is never had a GI bleed. She is on no other blood thinners. She is also had some nausea and vomiting throughout the night no hematemesis no coffee-ground material. Says a small amount of blood but seems to be more each time she had 4-5 episodes of this. She denies any melena. Prior similar symptoms: No Recent Illness/Hospitalization: Yes [facility] Medical History Arthritis Atherosclerosis of coronary artery of [place] heart without angina pectoris Carpal tunnel syndrome GERD (gastroesophageal reflux disease) Hammer toe Hyperlipidemia Hypertension Neuropathy Non-STEMI (non-ST elevated myocardial infarction) (~07/2017) Osteopenia Preoperative evaluation to rule out surgical contraindication Psoriasis Thyroid disease TIA (transient ischemic attack) Home Medications dejgemoqflsn-Oi-yout-minerals 1 ea PO DAILY 03/27/15 [History Last Taken 03/25/15] aspirin 81 mg PO DAILY@0800 #90 tab.chew 07/26/17 [Rx Last Taken Unknown] cholecalciferol (vitamin D3) 50 mcg (2,000 unit) capsule 2,000 unit PO DAILY 09/10/18 [History Last Taken Unknown] famotidine 10 mg tablet 10 mg PO DAILY PRN 07/09/19 [History Last Taken Unknown] lisinopril 20 mg-hydrochlorothiazide 12.5 mg tablet 0.5 tab PO .QD #90 tab 06/27/20 [Rx Last Taken Unknown] meloxicam 15 mg tablet 15 mg PO DAILY PRN #90 tab 08/04/20 [Rx Last Taken Unknown] levothyroxine 75 mcg tablet 75 mcg PO DAILY #90 tab 10/12/20 [Rx Last Taken 03/27/21] atorvastatin 20 mg tablet 20 mg PO QHS #90 tab 01/10/21 [Rx Last Taken Unknown] alendronate 35 mg tablet 35 mg PO QWEEK #30 tab 02/06/21 [Rx Last Taken 03/20/21] metoprolol tartrate 25 mg tablet 12.5 mg PO BID #90 tab 03/13/21 [Rx Last Taken 03/27/21] zolpidem 10 mg tablet 5 mg PO QHS PRN #30 tab 03/13/21 [Rx Last Taken Unknown] estradiol 1 g VAGINAL .COMPLEX #42.5 g 03/14/21 [Rx Last Taken Unknown] psyllium husk 0.52 gram capsule 0.52 g PO DAILY PRN 03/21/21 [History Last Taken Unknown] Allergy/AdvReac Type Severity Reaction Status Date / Time Sulfa (Sulfonamide Allergy Rash Verified 05/31/21 08:50 Antibiotics) Family History Brother Alcoholism Myocardial infarction Kidney disease Multiple myeloma Mother Arthritis Blood clot in vein Father Cancer Renal & Skin Kidney disease Surgical History History of bladder suspension procedure History of carpal tunnel surgery of right wrist History of colonoscopy (07/02/17) History of foot surgery History of hysterectomy History of tonsillectomy and adenoidectomy History of tubal ligation Social History Smoking Status: Never smoker second hand exposure: No alcohol intake: current alcohol intake frequency: a few times a week Alcohol type: wine substance use type: does not use caffeine: Yes frequency: 3-4 times per week ROS ROS ED ROS Narrative Recent nausea and vomiting. Recent diarrhea. Review of Systems ROS Unobtainable: Denies due to encephalopathy Constitutional Constitutional ED: Denies chills, fever(s) or subjective ENT ENT ED: Denies ear pain Cardiovascular Cardiovascular: Denies chest pain Respiratory/Chest Respiratory/Chest: Denies cough or dyspnea Gastrointestinal Gastrointestinal: Reports abdominal pain, diarrhea, nausea and vomiting; Denies constipation or melena Genitourinary Genitourinary ED: Denies dysuria Musculoskeletal Musculoskeletal: Denies myalgias Integumentary Denies rash Neurologic Neurologic: Denies headache(s) Psychiatric Psychiatric: Denies depression Endocrine Endocrinology: Denies polyuria Hematologic/Lymphatic Hematologic/Lymphatic: Denies easy bruising Allergic/Immunologic Allergic/Immunologic ED: Denies urticaria EXAM Physical Exam Narrative Exam Narrative: 8-year-old no acute distress vital signs stable afebrile. HEENT exam unremarkable. Lungs are clear. Heart tachycardic rate about 110 no murmur. Abdomen soft nontender. Normal bowel sounds. Rectal exam no external hemorrhoids. Nontender. No masses. Loose light brown stool no gross blood or melena. Moving all 4 extremities. No edema. Neurologically awake and alert. Const Vital Signs: 05/31/21 08:47 Temperature 96.1 F L Temperature Source Temporal Pulse Rate 118 H Respiratory Rate 16 Blood Pressure 119/94 H Blood Pressure Mean 102 Pulse Ox 95 Oxygen Delivery Method Room Air Positive well nourished and well developed; Negative for obese, cachectic or unkempt General Appearance ED: well developed and NAD; Negative for unkempt, cachectic or pallor Nutritional Appearance: Negative for cachectic or obese HEENT Reports moist mucous membranes normocephalic and atraumatic Eyes PERRL and EOMs intact bilaterally Neck no lymphadenopathy, supple and no JVD General: Negative for tenderness Resp normal respiratory effort and clear to auscultation bilaterally Auscultation: Negative for rales, rhonchi or wheezes GI non-tender, non-distended and no masses Auscultation: normoactive bowel sounds Palpation: soft; Negative for tender, guarding or rigid Back/Spine no CVA tenderness General Back: Negative for CVA tenderness Extremity full ROM General Extremety ED: Negative for edema General Extremity: Negative for edema Neuro CN's II-XII intact bilaterally and moves all extremities Sensorium / Orientation: alert, oriented to person, oriented to place and oriented to time; Negative for confused or lethargic Psych mental status grossly normal and thought process normal Appearance: Negative for unkempt Mood & Affect: Negative for depressed or tearful Skin no wounds General Skin Exam: Negative for jaundice or pallor Lesions: no lesions Rashes: no rashes MDM MDM MDM Narrative Medical decision making narrative: 71-year-old with lower GI bleed. Screening labs and type and screen. Repeat exam patient is doing well at 10:30 AM. She denies discussed admission for observation versus being discharged home with outpatient follow-up. She did not want to be admitted. Currently her vital signs and blood work are stable. She knows to return if worse. She will follow up with Dr. Alphonso Milian who did her most recent endoscopy. I did give him a courtesy call to let him know that she be following up with his office. She will hold her daily aspirin the next several days. She knows to return if increasing bleeding because of feeling worse or lightheaded or dizzy. Lab Data Attestation: I reviewed the patient's lab results. Lab results narrative: CBC shows normal white count 9. Hemoglobin 13.8. Platelet count is normal at 221. Chemistries unremarkable gap at 9. Normal creatinine. Glucose 118. Normal PT/INR. Labs: Laboratory Results - last 24 hr 05/31/21 05/31/21 05/31/21 09:22 09:22 09:22 WBC 9.4 RBC 4.46 Hgb 13.8 Hct 40.3 MCV 90.4 MCH 30.9 MCHC 34.2 RDW Std Deviation 40.4 RDW Coeff of Tory 12.2 Plt Count 221 MPV 9.0 PT 12.6 INR 1.0 Sodium 136 Potassium 3.5 Chloride 102 Carbon Dioxide 25.0 Anion Gap 9 BUN 15 Creatinine 0.91 Estim Creat Clear Calc 51.76 Est GFR (MDRD) Af Amer 79 Est GFR (MDRD) Non-Af 65 BUN/Creatinine Ratio 16.5 Glucose 118 H Calcium 9.2 Discharge Plan Triage Chief Complaint: GI Bleed ED Provider: Bayron Galan Dx/Rx/DC Orders Clinical Impression: Acute lower gastrointestinal bleeding Instructions: ED Lower GI Bleeding (Stable) Prescriptions: No Action famotidine 10 mg tablet 10 mg PO DAILY PRN (Reason: Indigestion) RF: 0 cholecalciferol (vitamin D3) 2,000 unit capsule 2,000 unit PO DAILY RF: 0 metoprolol tartrate 25 mg tablet 12.5 mg PO BID Qty: 90 RF: 3 zolpidem 10 mg tablet 5 mg PO QHS PRN (Reason: insomnia) Qty: 30 RF: 0 psyllium husk [Metamucil] 0.52 gram capsule 0.52 g PO DAILY PRN (Reason: constipation) RF: 0 lsmqpojyozoi-Ah-wimf-minerals 1 EACH tablet 1 ea PO DAILY RF: 0 aspirin 81 MG tablet,chewable 81 mg PO DAILY@0800 Qty: 90 RF: 0 lisinopril-hydrochlorothiazide 20-12.5 mg tablet 0.5 tab PO .QD Qty: 90 RF: 3 meloxicam 15 mg tablet 15 mg PO DAILY PRN (Reason: pain) Qty: 90 RF: 3 levothyroxine 75 mcg tablet 75 mcg PO DAILY Qty: 90 RF: 3 atorvastatin 20 mg tablet 20 mg PO QHS Qty: 90 RF: 3 alendronate 35 mg tablet 35 mg PO QWEEK Qty: 30 RF: 2 estradiol 0.01 % (0.1 mg/gram) cream 1 g vaginal .COMPLEX Qty: 42.5 RF: 0 Primary Care Provider: Fernando Jacosb Referrals: Fernando Jacobs MD [Primary Care Provider] - Alphonso Milian MD [STAFF PHYSICIAN] - As soon as possible Activity Restrictions/Additional Instructions: Hold your daily aspirin for the next 3 days. Call and follow-up with Dr. Milian who did her last endoscopy. Return if increasing bleeding, feeling worse or lightheaded. Disposition Disposition: Home, Self Care
[2021-05-31 09:41] LABS: Hematocrit 40.3 % (37-47); Hemoglobin 13.8 g/dL (12.0-15.0); Mean Corp Hgb Conc 34.2 g/dL (32-36); Mean Corpuscular Hgb 30.9 pg (27.0-32.0); Mean Corpuscular Volume 90.4 fL (81-99); Platelet Count 221 K/mm3 (150-450); RBC Distribution Width CV 12.2 % (11.6-14.6); RBC Distribution Width SD 40.4 fl (35.1-43.9); Red Blood Count 4.46 M/mm3 (4.2-5.4); White Blood Count 9.4 K/mm3 (4.4-11.0)
[2021-05-31 09:56] LABS: Anion Gap 9 (5-15); BUN 15 mg/dL (7-18); BUN/Creat Ratio 16.5 RATIO (10-20); Calcium,Total 9.2 mg/dL (8.5-10.1); Chloride 102 mmol/L (98-107); Creatinine, Serum 0.91 mg/dL (0.55-1.02); EST Glomerular Filtration Rate 65 mL/min (>60); Est Glom Filt Rate - Afr Amer 79 mL/min (>60); Estimated Creatinine Clearance 51.76 ml/min; Glucose 118 mg/dL (74-106); Potassium 3.5 mmol/L (3.5-5.1); Sodium Level 136 mmol/L (136-145)
[2021-05-31 09:58] LABS: Prothrombin Time (Protime)PT. 12.6 SECONDS (11.7-14.9)
[2021-05-31 10:53] VITALS: RESP 18
== END 2021-05-31 11:02 | disposition home or self-care (01) ==
PROVIDERS: Emergency Provider Emergency Medicine; PCP Internal Medicine
DX: K92.2 Gastrointestinal hemorrhage, unspecified (principal); M19.90 Unspecified osteoarthritis, unspecified site; I25.10 Atherosclerotic heart disease of native coronary artery without angina pectoris; K21.9 Gastro-esophageal reflux disease without esophagitis; E78.5 Hyperlipidemia, unspecified; I10 Essential (primary) hypertension; Z79.899 Other long term (current) drug therapy
CPT/HCPCS: 80048; 85027; 85610; 86850; 86900; 86901; 99283

== ENCOUNTER → 2021-06-14 12:51 | Outpatient (CLI) | payer MEDICARE, OTHER, SELFPAY ==
--- NOTE | 2021-06-14 12:53 | CT_ITS ---
STUDY: CT ABDOMEN AND PELVIS WITH CONTRAST REASON FOR EXAM: Female, 71 years old. Abominal pain, bloating, belching RADIATION DOSAGE (If Supplied By Facility): CTDIvol = ( 15.69 ) mGy, DLP = ( 1109.11 ) mGycm TECHNIQUE: Transaxial images were obtained from the dome of the diaphragm to the symphysis pubis with oral contrast. Oral and amp;amp; IV Readi-CAT and amp;amp; 100mL Isovue-370 was administered. Sagittal and coronal images were reconstructed. Individualized dose optimization techniques were used for this CT. COMPARISON: None. FINDINGS: The visualized lung bases are unremarkable. Coronary artery calcification. Normal liver. There are multiple small gallstones. Normal spleen. Normal pancreas. There is symmetric enlargement of the adrenal glands suggesting adrenal hyperplasia. Normal right kidney. Normal left kidney. Normal visualized stomach. Normal small intestine. There are multiple colonic diverticula consistent with diverticulosis. The appendix is visualized and appears normal. There is scattered atherosclerotic calcification of the abdominal aorta, without a demonstrated aneurysm. Normal inferior vena cava. There is borderline retroperitoneal lymphadenopathy with enlarged nodes no greater than 10mm in the short axis diameter. Normal urinary bladder. The patient is status post hysterectomy. Normal abdominal wall. There are diffuse degenerative changes of the visualized lumbar spine. CT/Abdomen/Pelvis WITH Contrast IMPRESSION: Multiple small gallstones. Sigmoid diverticulosis. Electronically Signed: Rogerio Kirby MD at 9:59 EDT , Service support ,
== END ==
PROVIDERS: PCP Internal Medicine; Referring Provider Surgery; Visit Provider Surgery
DX: K62.5 Hemorrhage of anus and rectum (principal); R10.9 Unspecified abdominal pain
CPT/HCPCS: 74177; Q9967

== ENCOUNTER → 2021-08-07 14:07 | Outpatient (CLI) | payer MEDICARE, OTHER, SELFPAY ==
--- NOTE | 2021-08-07 14:09 | BI_ITS ---
MAMMOGRAPHY - BILATERAL SCREENING REASON FOR EXAM: Female, 71 years old. Routine annual screening examination. PERTINENT HISTORY: Non-contributory. TECHNIQUE: Digital bilateral breast mars (3D mammographic acquisition) in the CC and MLO projections. 2-D mediolateral oblique (MLO) and craniocaudad (CC) views of both breasts were obtained. CAD: Full Field Digital Mammography with Computer Added Detection was performed. COMPARISON: Comparison is made with prior study dated 05/25/2020 and 05/21/2019. FINDINGS: Breast Composition: The breasts are almost entirely fatty. There are no dominant masses or suspicious calcifications. No other significant abnormalities are identified. There has been no significant change since the prior study. BI/SCRN MAMM (CAD)W/MARS BILAT IMPRESSION: Stable bilateral screening mammogram. Yearly follow-up mammogram recommended. (A) ASSESSMENT CATEGORY: BIRADS Category 1: Negative. A letter regarding these results will be sent to the patient by the facility within 30 days. Approximately 10% of breast cancers are not detected by mammography. A normal mammogram should not delay biopsy of a clinically suspicious abnormality. [id number] Electronically Signed: Rogerio Kirby MD at 15:28 EST , Service support ,
== END ==
PROVIDERS: PCP Internal Medicine; Referring Provider Internal Medicine; Visit Provider Internal Medicine
DX: Z12.31 Encounter for screening mammogram for malignant neoplasm of breast (principal)
CPT/HCPCS: 77063; 77067

== ENCOUNTER 2021-09-04 10:51 | Outpatient (CLI) | payer MEDICARE, OTHER, SELFPAY ==
[2021-09-04 11:33] LABS: Absolute Lymphocyte Count 1.79 X10^3/uL (0.83-4.51); Basophil# 0.03 X10^3/uL; Basophil% 0.5 % (0-1); Eosinophil# 0.18 X10^3/uL; Eosinophils% 3.3 % (0-5); Hematocrit 41.2 % (37-47); Hemoglobin 13.7 g/dL (12.0-15.0); Lymphocyte # 1.79 X10^3/ul (0.83-4.51); Lymphocyte % 32.4 % (19-41); Mean Corp Hgb Conc 33.3 g/dL (32-36); Mean Corpuscular Hgb 31.3 pg (27.0-32.0); Mean Corpuscular Volume 94.1 fL (81-99); Mean Platelet Vol. 9.2 fl (6.2-12.0); Monocyte# 0.53 X10^3/uL; Monocyte% 9.6 % (0-10); NRBC Flagged by Analyzer 0 % (0-5); Neutrophil # 2.99 X10^3/uL (2.7-7.7); Platelet Count 182 K/mm3 (150-450); RBC Distribution Width CV 13.1 % (11.6-14.6); RBC Distribution Width SD 45.2 fl (35.1-43.9); Red Blood Count 4.38 M/mm3 (4.2-5.4); White Blood Count 5.5 K/mm3 (4.4-11.0)
[2021-09-04 12:14] LABS: ALB/GLOB Ratio 0.9 RATIO (0.9-2.4); AST(SGOT) 22 U/L (15-37); Alanine Aminotransfer ALT/SGPT 28 U/L (13-56); Albumin, Serum 3.4 g/dL (3.2-5.0); Alkaline Phosphatase 54 U/L (45-117); Anion Gap 6 (5-15); BUN 17 mg/dL (7-18); Calcium,Total 8.8 mg/dL (8.5-10.1); Chloride 106 mmol/L (98-107); Cholesterol 153 mg/dL (200); Creatinine, Serum 0.77 mg/dL (0.55-1.02); EST Glomerular Filtration Rate 78 mL/min (>60); Est Glom Filt Rate - Afr Amer 95 mL/min (>60); Globulin 3.6 g/dL (2.2-4.2); Glucose 105 mg/dL (74-106); High Density Lipoprotein 48 mg/dL; Potassium 4.1 mmol/L (3.5-5.1); Sodium Level 139 mmol/L (136-145); Thyroid Stim Hormone (TSH) 0.82 uIU/mL (0.358-3.74); Triglycerides 120 mg/dL; Very Low Density Lipoprotein 24 mg/dL (5-40)
== END 2021-09-04 23:59 | disposition short-term general hospital (02) ==
LOC: LAB 10:54
PROVIDERS: PCP Internal Medicine; Visit Provider Internal Medicine
DX: Z01.818 Encounter for other preprocedural examination (principal); E03.9 Hypothyroidism, unspecified; E78.5 Hyperlipidemia, unspecified
CPT/HCPCS: 36415; 80053; 80061; 84443; 85025

== ENCOUNTER 2021-09-27 13:26 | Outpatient (CLI) | payer MEDICARE, OTHER, SELFPAY ==
--- NOTE | 2021-09-27 13:30 | VDLE_ITS ---
Reason For Study: Pain in leg RIGHT LEFT CFV is compressible, spontaneous, phasic, GSV is normal. competent and demonstrates normal CFV is compressible, spontaneous, phasic, augmentation. competent, and demonstrates normal Procedure augmentation. This is a venous duplex using B-mode, color FV is compressible, spontaneous, phasic, flow and spectral Doppler. competent and demonstrates normal Exam performed in department. augmentation. A preliminary report was called and/or faxed POP V is compressible, spontaneous, phasic, to Mauricio. competent and demonstrates normal augmentation. T/P Trunk is compressible. PTV is compressible. LT PerV is compressible. VL/Venous Duplex US, Unilateral Interpretation Summary Deep veins of the left lower extremity are patent and compressible segmentally. There is no evidence of left lower extremity deep vein thrombosis. Valvular competence appears intac t within the proximal deep venous system on the left . The left great saphenous vein appears patent a nd compressible segmentally. Ordering Physician: Lachelle Martínez Referring Physician: Fernando Jacobs Performed By: Denise Deleon RVT
== END 2021-09-27 23:59 | disposition home or self-care (01) ==
LOC: CVS 13:27
PROVIDERS: PCP Internal Medicine; Referring Provider Physician Assistant; Visit Provider Physician Assistant
DX: M79.662 Pain in left lower leg (principal)
CPT/HCPCS: 93971

== ENCOUNTER → 2022-02-28 | Outpatient (CLI) | payer MEDICARE, OTHER, SELFPAY ==
--- NOTE | 2022-02-28 13:02 | STRESSREP ---
Stress Test Report Date: 02-28-2022 Procedure: Exercise tolerance test/imaging study Indications: Chest pain; history of non-ST segment elevation SC; history of coronary artery vasospasm Consent: Per the patient Procedure: The patient exercised on a Glenn protocol for 6 minutes completing Stage II achieving a peak heart rate of 166 bpm (110% predicted maximal heart rate) with a peak blood pressure 162/84 mmHg and a peak MET capacity of 7 METs. The baseline ECG demonstrated normal sinus rhythm; poor R wave progression. The peak exercise ECG demonstrated no obvious ECG changes. There were no cardiac dysrhythmias pretest, during exercise, or recovery. The functional capacity was considered good. There was no complaint of chest discomfort during exercise or recovery. The examination was discontinued secondary to dyspnea. Impression: 1. Technically adequate (percent predicted maximal heart rate greater than 85%) exercise tolerance test 2. Peak exercise ECG with no obvious ECG changes 3. There were no cardiac dysrhythmias pretest, during exercise, or recovery 4. Nuclear images pending Myocardial perfusion imaging study: Technique: The patient was injected with 11.0 mCi of technetium 99m Cardiolite and subsequently rest SPECT Cardiolite nuclear imaging was obtained in the horizontal long, vertical long, and short axis views. The patient exercised on a Glenn protocol for 6 minutes completing Stage II achieving a peak heart rate of 166 bpm (110% predicted maximal heart rate) with a peak blood pressure 162/84 mmHg and a peak MET capacity of 7 METs. The patient was injected with 33.4 mCi of technetium 99m Cardiolite and subsequently stress SPECT Cardiolite nuclear imaging was obtained in the horizontal long, vertical long, and short axis views. A gated Cardiolite study at peak stress was obtained. Interpretation: Rest and stress SPECT Cardiolite nuclear imaging status post realignment, normalization, and attenuation correction, demonstrates the appearance of relative uniform tracer uptake and myocardial perfusion appearing within normal limits. There is end systolic thickening and brightening. The gated Cardiolite study demonstrates myocardial thickening and inward wall motion. The reported LVEF is 78%. Impression: 1. Rest and stress SPECT Cardiolite nuclear imaging demonstrate relative uniform tracer uptake and myocardial perfusion appearing within normal limits. 2. The gated Cardiolite study reports an LVEF of 78%. This note was generated with [employer]ation software. It may contain incorrect words, spelling, and punctuation that were not noted in checking the note before signing.
== END | disposition home or self-care (01) ==
PROVIDERS: PCP Internal Medicine; Referring Provider Physician Assistant Medical; Visit Provider Physician Assistant Medical
DX: I21.4 Non-ST elevation (NSTEMI) myocardial infarction (principal); R07.9 Chest pain, unspecified
CPT/HCPCS: 78452; 93017; A9500; A4216

== ENCOUNTER → 2022-05-07 | Outpatient (CLI) | payer MEDICARE, OTHER, SELFPAY ==
[2022-05-07 11:38] LABS: Absolute Lymphocyte Count 2.38 X10^3/uL (0.83-4.51); Absolute Neutrophil Count 3.4 X10^3/uL (2.0-7.7); Basophil# 0.05 X10^3/uL; Basophil% 0.7 % (0-1); Eosinophil# 0.42 X10^3/uL; Eosinophils% 6.1 % (0-5); Hematocrit 44.6 % (37-47); Hemoglobin 14.8 g/dL (12.0-15.0); Lymphocyte # 2.38 X10^3/ul (0.83-4.51); Lymphocyte % 34.4 % (19-41); Mean Corp Hgb Conc 33.2 g/dL (32-36); Mean Corpuscular Hgb 31.4 pg (27.0-32.0); Mean Corpuscular Volume 94.5 fL (81-99); Mean Platelet Vol. 9.7 fl (6.2-12.0); Monocyte# 0.67 X10^3/uL; Monocyte% 9.7 % (0-10); NRBC Flagged by Analyzer 0 % (0-5); Neutrophil # 3.39 X10^3/uL (2.7-7.7); Platelet Count 240 K/mm3 (150-450); RBC Distribution Width CV 13.4 % (11.6-14.6); RBC Distribution Width SD 46.6 fl (35.1-43.9); Red Blood Count 4.72 M/mm3 (4.2-5.4); White Blood Count 6.9 K/mm3 (4.4-11.0)
[2022-05-07 12:37] LABS: Vitamin D,25 Hydroxy 45.7 ng/mL
[2022-05-07 12:46] LABS: ALB/GLOB Ratio 0.9 RATIO (0.9-2.4); AST(SGOT) 26 U/L (15-37); Alanine Aminotransfer ALT/SGPT 31 U/L (13-56); Albumin, Serum 3.7 g/dL (3.2-5.0); Alkaline Phosphatase 55 U/L (45-117); Anion Gap 6 (5-15); BUN 19 mg/dL (7-18); BUN/Creat Ratio 19.6 RATIO (10-20); Calcium,Total 9.6 mg/dL (8.5-10.1); Chloride 105 mmol/L (98-107); Creatinine, Serum 0.97 mg/dL (0.55-1.02); EST Glomerular Filtration Rate 60 mL/min (>60); Est Glom Filt Rate - Afr Amer 73 mL/min (>60); Free T3 2.6 pg/mL (2.18-3.98); Globulin 3.9 g/dL (2.2-4.2); Glucose 114 mg/dL (74-106); Potassium 4.2 mmol/L (3.5-5.1); Protein, Total 7.6 g/dL (6.4-8.2); Sodium Level 140 mmol/L (136-145); T4 Free Direct 1.16 ng/dL (0.76-1.46); Thyroid Stim Hormone (TSH) 1.67 uIU/mL (0.358-3.74)
[2022-05-07 14:28] LABS: Hemoglobin A1c 6.1 % (3.8-5.6)
== END | disposition home or self-care (01) ==
LOC: LAB 10:00
PROVIDERS: PCP Internal Medicine; Referring Provider Internal Medicine; Visit Provider Internal Medicine
DX: I10 Essential (primary) hypertension (principal); E03.9 Hypothyroidism, unspecified; E66.9 Obesity, unspecified; M19.90 Unspecified osteoarthritis, unspecified site; F51.01 Primary insomnia; E78.00 Pure hypercholesterolemia, unspecified; M85.80 Other specified disorders of bone density and structure, unspecified site; R73.9 Hyperglycemia, unspecified
CPT/HCPCS: 36415; 80053; 82306; 83036; 84439; 84443; 84481; 85025

== ENCOUNTER → 2022-09-21 | Outpatient (CLI) | payer MEDICARE, OTHER, SELFPAY ==
--- NOTE | 2022-09-21 09:13 | BI_ITS ---
MAMMOGRAPHY - BILATERAL SCREENING REASON FOR EXAM: Female, 72 years old. Routine annual screening examination. PERTINENT HISTORY: Non-contributory. TECHNIQUE: Digital bilateral breast mars (3D mammographic acquisition) in the CC and MLO projections. 2-D mediolateral oblique (MLO) and craniocaudad (CC) views of both breasts were obtained. CAD: Full Field Digital Mammography with Computer Added Detection was performed. COMPARISON: Comparison is made with prior study dated 08/07/2021 and 05/25/2020. FINDINGS: Breast Composition: The breasts are almost entirely fatty. There are no dominant masses or suspicious calcifications. No other significant abnormalities are identified. There has been no significant change since the prior study. BI/SCRN MAMM (CAD)W/MARS BILAT IMPRESSION: Stable bilateral screening mammogram. Yearly follow-up mammogram recommended. (A) ASSESSMENT CATEGORY: BIRADS Category 1: Negative. A letter regarding these results will be sent to the patient by the facility within 30 days. Approximately 10% of breast cancers are not detected by mammography. A normal mammogram should not delay biopsy of a clinically suspicious abnormality. [id number] Electronically Signed: Rogerio Kirby MD at 10:40 EST ,
== END | disposition home or self-care (01) ==
LOC: OPBI 09:12
PROVIDERS: PCP Internal Medicine; Referring Provider Internal Medicine; Visit Provider Internal Medicine
DX: Z12.31 Encounter for screening mammogram for malignant neoplasm of breast (principal)
CPT/HCPCS: 77063; 77067

== ENCOUNTER 2022-10-08 10:01 | Emergency (ER) | payer MEDICARE, OTHER, SELFPAY ==
[2022-10-08 10:02] VITALS: BP 133/84; PULSE 79; RESP 18; TEMP 36.1; O2SAT 98; BMI 33.7
--- NOTE | 2022-10-08 10:12 | EX.ED.UPPERE ---
HPI History of Present Illness Chief Complaint: Laceration Detail of Chief Complaint: Partial amputation distal radial side left index finger Informant: patient Occured/Mechanism Mechanism/Context: Yes blunt trauma Comment: Patient was using lainey and accidentally cut the tip of her left index finger Onset/Context/Timing Context: Sudden Onset Timing: Continuous Quality of Pain: - (Patient is experiencing no pain presently) Location: Distal radial side left index finger involving the nailbed Current Severity: Mild Maximum Severity: Moderate Worsened by: Initial injury Relieved by: Nothing Associated Symptoms Associated Symptoms: Negative for Parasthesia, Weakness or Loss of Funtion Narrative Narrative: Patient is a 72-year-old [place] woman who presents with laceration to the left index finger. She is on a baby aspirin at today. She is not on any other antithrombotic medication or anticoagulant. She denies paresthesia, anesthesia medics. She states her last tetanus shot was greater than 11 years ago. She denies any pain at this time. Tetanus Immunization: >10 years Prior similar symptoms: No Recent Illness/Hospitalization: No PFSH PFS Medical History Abnormal CT of the abdomen Arthritis Atherosclerosis of coronary artery of [place] heart without angina pectoris Bloating Carpal tunnel syndrome Flu vaccine need Gallstones GERD (gastroesophageal reflux disease) Hammer toe Hyperlipidemia Hypertension Neuropathy Non-STEMI (non-ST elevated myocardial infarction) (~07/2017) Osteopenia Preoperative evaluation to rule out surgical contraindication Psoriasis Thyroid disease TIA (transient ischemic attack) Home Medications opperqnqqjcb-Ks-esph-minerals 1 ea PO DAILY 03/27/15 [History Last Taken 03/25/15] aspirin 81 mg chewable tablet 81 mg PO DAILY@0800 ##90 07/26/17 [Rx Last Taken Unknown] estradiol 0.01% (0.1 mg/gram) vaginal cream 1 g vaginal .COMPLEX #42.5 grams 03/14/21 [Rx Last Taken Unknown] cholecalciferol (vitamin D3) 125 mcg (5,000 unit) tablet 125 mcg PO DAILY 07/04/21 [History Last Taken Unknown] psyllium husk 0.52 gram capsule (Metamucil) 0.52 g PO DAILY constipation 07/04/21 [History Last Taken Unknown] acetaminophen 650 mg tablet,extended release (Tylenol 8 Hour) 650 mg PO Q8H 07/11/21 [History Last Taken Unknown] lisinopril 20 mg-hydrochlorothiazide 12.5 mg tablet 0.5 tab PO DAILY #90 tabs 09/25/21 [Rx Last Taken Unknown] alendronate 35 mg tablet 35 mg PO QWEEK #30 tabs 02/26/22 [Rx Last Taken Unknown] albuterol sulfate 90 mcg/actuation aerosol inhaler 1 - 2 puff inhalation Q6H PRN shortness of breath or wheezing #8.5 grams 03/07/22 [Rx Last Taken Unknown] codeine 10 mg-guaifenesin 100 mg/5 mL oral liquid 5 ml PO Q6H PRN cough #120 mL 03/15/22 [Rx Last Taken Unknown] metoprolol tartrate 25 mg tablet 12.5 mg PO BID #90 tabs 04/06/22 [Rx Last Taken Unknown] atorvastatin 20 mg tablet 20 mg PO QHS #90 tabs 05/03/22 [Rx Last Taken Unknown] b complex PO 05/03/22 [History Last Taken Unknown] trazodone 50 mg tablet 75 mg PO QHS PRN insomnia #120 tabs 05/03/22 [Rx Last Taken Unknown] levothyroxine 75 mcg tablet 75 mcg PO DAILY #90 tabs 09/17/22 [Rx Last Taken Unknown] Allergy/AdvReac Type Severity Reaction Status Date / Time Sulfa (Sulfonamide Allergy Rash Verified 10/08/22 10:03 Antibiotics) Family History Brother Alcoholism Myocardial infarction Kidney disease Multiple myeloma Mother Arthritis Blood clot in vein Father Cancer Renal & Skin Kidney disease Surgical History History of bladder suspension procedure History of carpal tunnel surgery of right wrist History of colonoscopy (07/02/17) History of foot surgery History of hysterectomy History of left knee replacement History of tonsillectomy and adenoidectomy History of tubal ligation Social History Smoking Status: Never smoker second hand exposure: No alcohol intake: current alcohol intake frequency: a few times a week Alcohol type: wine substance use type: does not use caffeine: Yes frequency: 3-4 times per week ROS ROS ED Integumentary Reports other Details: Laceration distal radial side left index finger involving the nailbed. This is a flap, incomplete amputation. The flap does appear viable. ; Denies rash Neurologic Neurologic: Denies paresthesias or weakness Hematologic/Lymphatic Hematologic/Lymphatic: Denies easy bleeding, easy bruising or lymphadenopathy EXAM Physical Exam Const Vital Signs: 10/08/22 10:02 Temperature 96.9 F L Temperature Source Oral Pulse Rate 79 Respiratory Rate 18 Blood Pressure 133/84 H Blood Pressure Mean 100 Pulse Ox 98 Oxygen Delivery Method Room Air Positive well nourished and well developed General Appearance ED: well developed and NAD; Negative for cyanotic or diaphoretic HEENT Reports moist mucous membranes normocephalic and atraumatic Eyes PERRL and EOMs intact bilaterally Neck full ROM and supple Resp normal respiratory effort Cardio regular rate and regular rhythm Extremity full ROM; Negative for normal to inspection Extremity Narrative: The extensor indices tendon is functionally intact. The flexor digitorum superficialis and flexor digitorum profundus are intact. There is a partial/incomplete amputation of the distal aspect of left index finger which involves the nailbed. The flap appears viable and pink. Neuro oriented x3, CN's II-XII intact bilaterally, moves all extremities and no focal motor deficits Sensorium / Orientation: alert Psych mental status grossly normal Skin Skin Narrative: Described under the extremity portion. MDM MDM MDM Narrative Medical decision making narrative: Patient has a laceration which will require repair. Please read procedure note. Prior records were reviewed and there is no history of anticoagulant use. She is on a baby aspirin a day. Tetanus was updated. Please review procedure note regarding repair. Procedures Other Procedures Procedure(s): Laceration/distal flap left index finger: Digit was Nestabs by metacarpal block. 1% lidocaine was used without epinephrine. After 5 minutes patient was reassessed. She had no sensation. The distal third to one half of the nail was removed. The wound was irrigated with 100 cc of normal saline. The skin was closed using 5-0 Ethilon. A total of 4 stitches was placed. The nailbed was repaired using 5-0 Vicryl. A total of 2 simple interrupted sutures was placed. Tourniquet time 10 minutes. Total length of laceration 2.3 cm Discharge Plan Triage Chief Complaint: Laceration ED Provider: Kaz Rowell Dx/Rx/DC Orders Clinical Impression: Laceration of finger of left hand without foreign body with damage to nail Instructions: ED Laceration, Hand: All Closures Prescriptions: No Action cholecalciferol (vitamin D3) 125 mcg (5,000 unit) tablet 125 mcg PO DAILY psyllium husk [Metamucil] 0.52 gram capsule 0.52 g PO DAILY acetaminophen [Tylenol 8 Hour] 650 mg tablet extended release 650 mg PO Q8H albuterol sulfate 90 mcg/actuation HFA aerosol inhaler 1 - 2 puff inhalation Q6H PRN (Reason: shortness of breath or wheezing) Qty: 8.5 0RF b complex PO lcxefjhyiupd-Eh-syuw-minerals 1 EACH tablet 1 ea PO DAILY Label Comments: vitamin aspirin 81 MG tablet,chewable 81 mg PO DAILY@0800 Qty: 90 0RF estradiol 0.01 % (0.1 mg/gram) cream 1 g vaginal .COMPLEX Qty: 42.5 0RF Rx Instructions: 1 g vaginal 1gm each night for 2 weeks, then 2x a week; lisinopril-hydrochlorothiazide 20-12.5 mg tablet 0.5 tab PO DAILY Qty: 90 3RF alendronate 35 mg tablet 35 mg PO QWEEK Qty: 30 2RF codeine-guaifenesin 10-100 mg/5 mL liquid 5 ml PO Q6H PRN (Reason: cough) Qty: 120 0RF metoprolol tartrate 25 mg tablet 12.5 mg PO BID Qty: 90 3RF atorvastatin 20 mg tablet 20 mg PO QHS Qty: 90 3RF trazodone 50 mg tablet 75 mg PO QHS PRN (Reason: insomnia) Qty: 120 2RF levothyroxine 75 mcg tablet 75 mcg PO DAILY Qty: 90 3RF Primary Care Provider: Jodie Yanes Referrals: Jodie Yanes MD [Primary Care Provider] - 2 Days for wound check Activity Restrictions/Additional Instructions: 1. Keep wound clean and dry for the next 48 hours 2. Have wound checked in 2 days for evidence of infection and viability 3. Sutures to be removed in 10 days 4. Apply bacitracin ointment 3 times a day Disposition Disposition: Home, Self Care
[2022-10-08] MEDS: Diphth,Pertuss(Acell),Tet Vac 0.5 ML Vial IM (11:02)
[2022-10-08] MEDS: Lidocaine 1% (20 ml mdv) 20 ML Vial INFILT (11:02)
[2022-10-08 11:27] VITALS: RESP 16
== END 2022-10-08 11:28 | disposition home or self-care (01) ==
PROVIDERS: Emergency Provider Emergency Medicine; PCP Internal Medicine; Visit Provider Emergency Medicine
DX: S68.121A Partial traumatic metacarpophalangeal amputation of left index finger, initial encounter (principal); I25.10 Atherosclerotic heart disease of native coronary artery without angina pectoris; E78.5 Hyperlipidemia, unspecified; I10 Essential (primary) hypertension; Z79.82 Long term (current) use of aspirin; W27.8XXA Contact with other nonpowered hand tool, initial encounter; Z23 Encounter for immunization
CPT/HCPCS: 12001; 90471; 90715; 99283

== ENCOUNTER → 2023-05-21 | Outpatient (CLI) | payer MEDICARE, OTHER, SELFPAY ==
[2023-05-21 09:31] LABS: Absolute Lymphocyte Count 3.28 X10^3/uL (0.83-4.51); Absolute Neutrophil Count 2.7 X10^3/uL (2.0-7.7); Basophil# 0.06 X10^3/uL; Basophil% 0.9 % (0-1); Eosinophil# 0.22 X10^3/uL; Eosinophils% 3.1 % (0-5); Hematocrit 45.7 % (37-47); Hemoglobin 15.3 g/dL (12.0-15.0); Lymphocyte # 3.28 X10^3/ul (0.83-4.51); Lymphocyte % 46.5 % (19-41); Mean Corp Hgb Conc 33.5 g/dL (32-36); Mean Corpuscular Hgb 32.3 pg (27.0-32.0); Mean Corpuscular Volume 96.6 fL (81-99); Mean Platelet Vol. 9.5 fl (6.2-12.0); Monocyte# 0.83 X10^3/uL; Monocyte% 11.8 % (0-10); NRBC Flagged by Analyzer 0 % (0-5); Neutrophil # 2.65 X10^3/uL (2.7-7.7); Neutrophil % 37.6 % (47-70); Platelet Count 235 K/mm3 (150-450); RBC Distribution Width CV 13.6 % (11.6-14.6); RBC Distribution Width SD 48.8 fl (35.1-43.9); Red Blood Count 4.73 M/mm3 (4.2-5.4); White Blood Count 7.1 K/mm3 (4.4-11.0)
[2023-05-21 10:04] LABS: Vitamin D,25 Hydroxy 56.6 ng/mL
[2023-05-21 10:15] LABS: ALB/GLOB Ratio 1.1 RATIO (0.9-2.4); AST(SGOT) 32 U/L (15-37); Alanine Aminotransfer ALT/SGPT 35 U/L (13-56); Albumin, Serum 3.8 g/dL (3.2-5.0); Alkaline Phosphatase 54 U/L (45-117); Anion Gap 4 (5-15); BUN 15 mg/dL (7-18); BUN/Creat Ratio 15.4 RATIO (10-20); Calcium,Total 9.8 mg/dL (8.5-10.1); Chloride 107 mmol/L (98-107); Cholesterol 169 mg/dL (200); Creatinine, Serum 0.97 mg/dL (0.55-1.02); EST Glomerular Filtration Rate 60 mL/min (>60); Est Glom Filt Rate - Afr Amer 72 mL/min (>60); Free T3 2.3 pg/mL (2.18-3.98); Globulin 3.6 g/dL (2.2-4.2); Glucose 131 mg/dL (74-106); High Density Lipoprotein 52 mg/dL; Magnesium 2.2 mg/dL (1.6-2.6); Potassium 4.1 mmol/L (3.5-5.1); Protein, Total 7.4 g/dL (6.4-8.2); Sodium Level 139 mmol/L (136-145); T4 Free Direct 1.08 ng/dL (0.76-1.46); Thyroid Stim Hormone (TSH) 3.16 uIU/mL (0.358-3.74); Triglycerides 162 mg/dL; Very Low Density Lipoprotein 32 mg/dL (5-40)
[2023-05-21 11:13] LABS: Hemoglobin A1c 5.5 % (3.8-5.6)
== END | disposition home or self-care (01) ==
LOC: LAB 08:50
PROVIDERS: PCP Internal Medicine; Referring Provider Internal Medicine; Visit Provider Internal Medicine
DX: E78.00 Pure hypercholesterolemia, unspecified (principal); R73.9 Hyperglycemia, unspecified; E66.9 Obesity, unspecified; I10 Essential (primary) hypertension; K21.9 Gastro-esophageal reflux disease without esophagitis; E07.9 Disorder of thyroid, unspecified; E03.9 Hypothyroidism, unspecified; Z13.220 Encounter for screening for lipoid disorders; E55.9 Vitamin D deficiency, unspecified
CPT/HCPCS: 36415; 80053; 80061; 82306; 83036; 83735; 84439; 84443; 84481; 85025

== ENCOUNTER → 2023-07-23 | Outpatient (CLI) | payer MEDICARE, OTHER, SELFPAY ==
[2023-07-23 13:53] LABS: Bacteria 0 SEEN /hpf (None Seen); Mucous, Urine 0 SEEN /hpf (<or=2+)
[2023-07-23 15:43] LABS: Color, Urine Yellow (Yellow); Glucose, Dipstick Normal (Normal); Ketone-Dipstick Negative (Negative); Leukocyte Esterase-Dipstick 100 /ul (Negative); Nitrite-Dipstick Negative (Negative); Occult Blood-Urine 250 /ul (Negative); Protein-Dipstick 15 mg/dl (Negative); Urine Bilirubin Dipstick Negative (Negative); Urine Clarity Clear (Clear); Urine Urobilinogen Normal (Normal)
[2023-07-23 17:02] LABS: Red Blood Cells-Urine 25-50 SEEN /hpf (0-5); Squamous Epithelial Cells - UA 0-5 SEEN /hpf (5-10); White Blood Cells 10-25 SEEN /hpf (0-5)
== END | disposition home or self-care (01) ==
LOC: LABSPEC 13:52
PROVIDERS: PCP Internal Medicine; Visit Provider Physician Assistant
DX: R10.84 Generalized abdominal pain (principal); R30.0 Dysuria
CPT/HCPCS: 81001; 87077; 87086; 87088; 87186

== ENCOUNTER 2023-08-09 10:00 | Outpatient (RCR) | payer MEDICARE, OTHER, SELFPAY ==
--- NOTE | 2023-07-24 09:23 | HP.PTEVAL_ITS ---
Patient's Visit Information Visit Information Visit Information: ROMERO PONCE is a 73 year old F referred to Physical Therapy by Dr. Patricio Cevallos MD with a diagnosis of B hip pain. Date of Evaluation: 07/24/23 Physical Therapist: Julio César Martínez, PT, ATC Visit Plan Frequency: 2-3x /Week Duration: 2-4 Weeks Plan: R ITBand- stretching, stick roll out, DTR, core stab ex's, R hip strengthening L hamstring- stretching, stick rollout, DTR, core stab ex's, L hamsting strengthening Subjective Subjective: Pt reports she went to have lunch with friends 6 weeks ago where she ended up sitting in a hard chair for 1 1/2 hours. Pt notes when she attempted to stand, she experienced severe pain in the ischial region of her L glute. Pt reports she believes since she was ambulating and compensating for her L hip pain, her right hip started to hurt now as well. Pt reports she had no pain prior to this episode. Pt reports she received a cortisone injection into R hip one week ago, which helped significantly for a couple days. Pt reports the pain has returned now in the R hip and describes it as an ache. Pt reports a couple weeks ago, she was sitting in a low chair and attempted to reach forward when she experienced a severe pain in L medial hamstring. Pt reports she still has bruising present where she felt that pain. Pt denies tingling or numbness in LE's, although she does have peripheral neuropathy in B feet. Pt reports she is limited with ascending stairs and walking her dog secondary to pain. Occasional sleep difficulty secondary to pain when she lyes on her hip. No PMHx of L hamstring tendon pathology, Pt has had intermittent R hip pain in the past. Pt denies LBP at this time. Pain L hamstring: Pain Intensity (Out of 10): 0 Pain Intensity Range: 3 R hip: Pain Intensity (Out of 10): 5 Pain Intensity Range: 10 Objective Objective: Neuro: B LE sensation is WNL to light touch. B patellar reflex 2/3 Palpation: Pt has severe tenderness on medial hamstring of L LE and R IT band. No obvious ddeformity ROM: B LE's are WNL when compared bilaterally. MMT: R hip flex= 21, abd= 35, add= 38; R knee flex= 21, ext= 29 #F; L hip flex= 33, abd= 37, add= 49; L knee flex= 23, ext= 18 #F Special test: Pos 90/90 (45 degree lag) Balance/Special Test Scores Lower Extremity Functional Score: 38 Goals Goal 1:: Decrease L hamstring pain and R hip pain x 50% to aid with sleep Goal Time Frame: 2-4 Weeks Goal 2:: Increase L hamstring flexibility x 20 degrees to aid with decreasing pain Goal Time Frame: 2-4 Weeks Goal 3:: Increase L hamstring strength x 5 #F to aid with stair negotiation Goal Time Frame: 2-4 Weeks Goal 4:: I with HEP Goal Time Frame: 2-4 Weeks Rehabilitation Potential Physical Therapy Diagnosis: Pt has B hip pain secondary to R IT band syndrome and L hamstring strain Rehabilitation Potential: Good Anticipated Interventions Patient/Client Instruction: Educate patient on: Condition and Plan of Care For the Purpose of:: To improve self management Therapeutic Exercise to Include: Strength training, Endurance training, Flexibilty training and Dynamic Lumbar Stabilization For the Purpose of:: To decrease pain, To improve muscle performance and motor function and To increase tolerance to activity/condition/position Cryotherapy (ice pack, ice massage): Yes For the Purpose of:: To decrease pain Text: Thank you for the opportunity to evaluate your patient. For Medicare and Medicare HMO plans, please review the plan of care and approve it. It will need to be FAXED BACK to us at [phone] for Medicare purposes. For Medicare only, by signing this I certify the plan of care. Please let me know if there are questions or concerns regarding this plan of care. Physician Signature: Date:
--- NOTE | 2023-08-09 11:06 | HP.PTDCSUM ---
Discharge Summary D/C summary: It has been my pleasure to treat ROMERO PONCE referred by Dr. Patircio Cevallos MD, with the diagnosis of B hip pain for a total of 8 visit(s). Discharge Date: Please see the following information for a summary of their discharge status. Subjective Subjective: its a lot better than it was Pain L hamstring: Pain Intensity (Out of 10): 0 R hip: Pain Intensity (Out of 10): 0 Overall Improvement % Improvement: 90 Objective Objective/Function: Pt reports no pain right now. MMT: L knee flex= 32 #F L hamstring has a 30 degree lag Pt is I with HEP Goals Goal 1:: Decrease L hamstring pain and R hip pain x 50% to aid with sleep Goal Progress: Goal Met Goal 2:: Increase L hamstring flexibility x 20 degrees to aid with decreasing pain Goal Progress: Goal Met Goal 3:: Increase L hamstring strength x 5 #F to aid with stair negotiation Goal Progress: Goal Met Goal 4:: I with HEP Goal Progress: Goal Met Plan Plan: R ITBand- stretching, stick roll out, DTR, core stab ex's, R hip strengthening L hamstring- stretching, stick rollout, DTR, core stab ex's, L hamsting strengthening D/C Information d/c sentence: If there are questions or concerns regarding this patient's physical therapy, please feel free to call me at [phone]. Thank you for the referral of this patient. Sincerely, Julio César Martínez, PT, ATC Balance/Gait/Functional tests Balance/Special Test Scores Lower Extremity Functional Score: 57 Improvement % Improvement: 90
== END 2023-08-09 19:00 | disposition home or self-care (01) ==
LOC: PT 10:00
PROVIDERS: PCP Internal Medicine; Visit Provider Orthopaedic Surgery
DX: M70.61 Trochanteric bursitis, right hip (principal); M51.36 Other intervertebral disc degeneration, lumbar region; M25.552 Pain in left hip
CPT/HCPCS: 97110; 97140; 97161; 97164

== ENCOUNTER → 2023-09-26 | Outpatient (CLI) | payer MEDICARE, OTHER, SELFPAY ==
--- NOTE | 2023-09-26 10:12 | BI_ITS ---
MAMMOGRAPHY - BILATERAL SCREENING REASON FOR EXAM: Female, 73 years old. Routine annual screening examination. PERTINENT HISTORY: Non-contributory. TECHNIQUE: Digital bilateral breast mars (3D mammographic acquisition) in the CC and MLO projections. 2-D mediolateral oblique (MLO) and craniocaudad (CC) views of both breasts were obtained. CAD: Full Field Digital Mammography with Computer Added Detection was performed. COMPARISON: Comparison is made with prior study September 21, 2022 and August 07, 2021. FINDINGS: Breast Composition: The breasts are almost entirely fatty. There are no dominant masses or suspicious calcifications. No other significant abnormalities are identified. There has been no significant change since the prior study. BI/SCRN MAMM (CAD)W/MARS BILAT IMPRESSION: Stable bilateral screening mammogram. Yearly follow-up mammogram recommended. (A) ASSESSMENT CATEGORY: BIRADS Category 1: Negative. A letter regarding these results will be sent to the patient by the facility within 30 days. Approximately 10% of breast cancers are not detected by mammography. A normal mammogram should not delay biopsy of a clinically suspicious abnormality. [id number] Electronically Signed: Rogerio Kirby MD at 11:53 EST ,
== END | disposition home or self-care (01) ==
LOC: OPBI 10:12
PROVIDERS: PCP Internal Medicine; Referring Provider Internal Medicine; Visit Provider Internal Medicine
DX: Z12.31 Encounter for screening mammogram for malignant neoplasm of breast (principal)
CPT/HCPCS: 77063; 77067

== ENCOUNTER 2024-01-12 15:14 | Inpatient (IN) | payer MEDICARE, OTHER, SELFPAY ==
[2024-01-12] VITALS (8 sets, daily range): BP systolic 101–126; BP diastolic 52–73; PULSE 89–101; RESP 15–20; TEMP 37.1–37.7; O2SAT 96–99; BMI 34.9; BMI 30.9
--- NOTE | 2024-01-12 15:31 | EDS_ITS ---
HPI <MER Payne - Last Filed: 01/12/24 17:04> History of Present Illness Chief Complaint: Edema Narrative Narrative: 73-year-old female with PMH of HTN, HLD states she developed a fever of 101.8F around 8:30 AM with chills. Over the last 2 hours she developed redness of the right leg that is spreading up the pereira. She denies history of diabetes or immunocompromise. PFSH <MER Payne - Last Filed: 01/12/24 17:04> PFS Medical History Abnormal CT of the abdomen Gallstones Bloating Flu vaccine need Hammer toe Preoperative evaluation to rule out surgical contraindication TIA (transient ischemic attack) Psoriasis Thyroid disease GERD (gastroesophageal reflux disease) Osteopenia Neuropathy Carpal tunnel syndrome Arthritis Atherosclerosis of coronary artery of [place] heart without angina pectoris Non-STEMI (non-ST elevated myocardial infarction) (~07/2017) Hypertension Hyperlipidemia Home Medications ?Medication ?Instructions ?Recorded ?Last Taken ?Type aspirin 81 mg chewable tablet 81 mg PO DAILY@0800 ##90 07/26/17 01/12/24 Rx cholecalciferol (vitamin D3) 125 125 mcg PO DAILY 07/04/21 01/12/24 History mcg (5,000 unit) tablet metoprolol tartrate 25 mg tablet 12.5 mg (1/2 x 25 mg) PO BID #90 04/09/23 01/12/24 Rx tabs atorvastatin 20 mg tablet 20 mg PO QHS #90 tabs 05/13/23 01/11/24 Rx levothyroxine 75 mcg tablet 75 mcg PO DAILY #90 tabs 09/11/23 01/12/24 Rx lisinopril 20 0.5 tab PO DAILY #90 tabs 11/28/23 01/12/24 Rx mg-hydrochlorothiazide 12.5 mg tablet trazodone 50 mg tablet 50 mg PO QHS PRN insomnia 01/07/24 01/11/24 History alendronate 35 mg tablet 35 mg PO MO 01/12/24 01/06/24 History estradiol 0.01% (0.1 mg/gram) 1 g vaginal .COMPLEX 01/12/24 Unknown History vaginal cream famotidine 20 mg tablet (Acid 20 mg PO DAILY PRN heartburn 01/12/24 Unknown History Controller) psyllium husk 0.52 gram capsule 0.52 g PO DAILY 01/12/24 Unknown History (Daily Fiber) vitamin B complex (Complex B-100 1 tab PO DAILY 01/12/24 01/12/24 History tablet,extended release) Allergy/AdvReac Type Severity Reaction Status Date / Time Sulfa (Sulfonamide Allergy Rash Verified 01/12/24 15:19 Antibiotics) Family History Brother Alcoholism Myocardial infarction Kidney disease Multiple myeloma Mother Arthritis Blood clot in vein Father Cancer Renal & Skin Kidney disease Surgical History History of left knee replacement History of colonoscopy (07/02/17) History of tubal ligation History of tonsillectomy and adenoidectomy History of hysterectomy History of carpal tunnel surgery of right wrist History of bladder suspension procedure History of foot surgery Social History Smoking Status: Never smoker second hand exposure: No alcohol intake: current alcohol intake frequency: a few times a week Alcohol type: wine substance use type: does not use caffeine: Yes frequency: 3-4 times per week ROS <MER Payne - Last Filed: 01/12/24 17:04> ROS ED ROS Narrative Constitutional: Positive for fever, chills, malaise. CVS: Negative for chest pain. Respiratory: Negative for shortness of breath.. Neuro: Negative for motor/sensory dysfunction. Skin: Positive for rash. EXAM <MER Payne - Last Filed: 01/12/24 17:04> Physical Exam Narrative Exam Narrative: CONST: Patient sitting in no acute distress. EYES: Normal inspection NECK: Normal inspection. RESP: No respiratory distress, CTAB. CVS: Regular rate and rhythm, no murmur, no gallop. SKIN: Color normal, no rash, warm, dry, intact. EXTREMITIES: Erythema and warmth of right lower extremity from the upper anterior pereira down to the level of the ankle. There is also a quarter sized red patch on the right patella. Right knee has a healed midline incision from prior surgery. Full ROM of all joints, no ankle edema, normal strength and sensation, 2+ DP pulse. NEURO: Alert and answering questions appropriately. PSYCH: Normal affect. Const Vital Signs: 01/12/24 15:16 01/12/24 15:44 01/12/24 15:55 Temperature 98.9 F 99.4 F H Temperature Source Temporal Oral Pulse Rate 100 100 Respiratory Rate 15 15 Respiratory Effort Normal Non-Labored Respiratory Pattern Normal Blood Pressure 124/73 H 124/73 H Blood Pressure Mean 90 90 Pulse Ox 97 97 Oxygen Delivery Method Room Air Room Air 01/12/24 16:23 01/12/24 17:00 Temperature 99.4 F H 98.7 F Temperature Source Oral Oral Pulse Rate 101 H 92 Respiratory Rate 20 H 20 H Respiratory Effort Respiratory Pattern Blood Pressure 112/65 104/60 Blood Pressure Mean 80 74 Pulse Ox 99 Oxygen Delivery Method Room Air <Dr. Jorgito Colon DO - Last Filed: 01/12/24 17:36> Physical Exam Const Vital Signs: 01/12/24 15:16 01/12/24 15:44 01/12/24 15:55 Temperature 98.9 F 99.4 F H Temperature Source Temporal Oral Pulse Rate 100 100 Respiratory Rate 15 15 Respiratory Effort Normal Non-Labored Respiratory Pattern Normal Blood Pressure 124/73 H 124/73 H Blood Pressure Mean 90 90 Pulse Ox 97 97 Oxygen Delivery Method Room Air Room Air 01/12/24 16:23 01/12/24 17:00 Temperature 99.4 F H 98.7 F Temperature Source Oral Oral Pulse Rate 101 H 92 Respiratory Rate 20 H 20 H Respiratory Effort Respiratory Pattern Blood Pressure 112/65 104/60 Blood Pressure Mean 80 74 Pulse Ox 99 Oxygen Delivery Method Room Air [facility] <MER Payne - Last Filed: 01/12/24 17:04> [facility] Narrative Medical decision making narrative: History gathered from: Patient and spouse Differential: Cellulitis, abscess, necrotizing fasciitis Patient developed a fever and rapidly spreading erythema on the right pereira this afternoon. She appears well and nontoxic. Heart rate is 100, oral temp 99.4 F, otherwise normal vital signs. There is patchy erythema and warmth of the right pereira down to the level of the ankle. There is no fluctuance or crepitus and extremity is neurovascularly intact. Labs show white count of 25.8, lactate 2.2. Blood culture sent. X-ray shows no acute findings. She was given IV vancomycin and Zosyn. At this time her symptoms are consistent with rapidly spreading cellulitis. I did make on-call surgeon Dr. Prado aware in case it worsens but she does not currently have signs of necrotizing fasciitis. Case was discussed with the hospitalist for admission. Lab Data Attestation: I reviewed the patient's lab results. Labs: Laboratory Results - last 24 hr 01/12/24 13:48 WBC 25.8 H RBC 4.49 Hgb 14.8 Hct 43.5 MCV 96.9 MCH 33.0 H MCHC 34.0 RDW Std Deviation 49.0 H RDW Coeff of Tory 13.8 Plt Count 242 MPV 9.4 Immature Gran % (Auto) 0.700 Neut % (Auto) 91.2 H Lymph % (Auto) 3.5 L [place] % (Auto) 4.3 Eos % (Auto) 0.1 Baso % (Auto) 0.2 Absolute Neuts (auto) 23.5 H Absolute Lymphs (auto) 0.91 Nucleated RBC % 0 Differential Comment SCANNED ESR 6 Sodium 135 L Potassium 3.9 Chloride 104 Carbon Dioxide 25.0 Anion Gap 6 BUN 17 Creatinine 1.10 H Est GFR (MDRD) Af Amer 63 Est GFR (MDRD) Non-Af 52 L BUN/Creatinine Ratio 15.5 Glucose 121 H Lactic Acid 2.2 H* Calcium 9.6 C-React Prot Ext Range 27.90 H Radiography Diagnostic Testing: Clinical Impression(s) from Imaging Studies Tibia/Fibula X-Ray 01/12/24 15:46 IMPRESSION: No acute bony injury. Electronically Signed: Stephen Jimenez DO at 16:10 EDT Reading Location ID and State: [facility] / [place] Tel [phone], Service support , ED attending interpretation of left tibia/fibula shows no fracture or osseous abnormality. <Dr. Jorgito Colon DO - Last Filed: 01/12/24 17:36> [facility] MDM Narrative Medical decision making narrative: History gathered from: Patient and spouse Differential: Cellulitis, abscess, necrotizing fasciitis Patient developed a fever and rapidly spreading erythema on the right pereira this afternoon. She appears well and nontoxic. Heart rate is 100, oral temp 99.4 F, otherwise normal vital signs. There is patchy erythema and warmth of the right pereira down to the level of the ankle. There is no fluctuance or crepitus and extremity is neurovascularly intact. Labs show white count of 25.8, lactate 2.2. Blood culture sent. X-ray shows no acute findings. She was given IV vancomycin and Zosyn. At this time her symptoms are consistent with rapidly spreading cellulitis. I did make on-call surgeon Dr. Prado aware in case it worsens but she does not currently have signs of necrotizing fasciitis. Case was discussed with the hospitalist for admission. This patient was seen with a PA/ACCOUNT AUDITOR Individually assessed they patient including history and physical. I have reviewed everything on the chart that is available and agree with the documentation provided by the PA/ACCOUNT AUDITOR including discussion about the assessment, treatment plan, discussion, and return precautions. Patient presenting with varying cellulitis on the right lower extremity and systemically feels that she has chills and fever. Right tib-fib x-ray my interpretation shows no acute fracture. Leukocytosis elevated at 25. Lactate 2.2. We did obtain blood cultures and she is systemically ill. Started vancomycin and Zosyn. Concern for rapidly spreading cellulitis discussed with surgery to cover his early present fasciitis. Discussed with the hospitalist and patient is admitted in stable condition. Lab Data Labs: Laboratory Results - last 24 hr 01/12/24 13:48 WBC 25.8 H RBC 4.49 Hgb 14.8 Hct 43.5 MCV 96.9 MCH 33.0 H MCHC 34.0 RDW Std Deviation 49.0 H RDW Coeff of Tory 13.8 Plt Count 242 MPV 9.4 Immature Gran % (Auto) 0.700 Neut % (Auto) 91.2 H Lymph % (Auto) 3.5 L [place] % (Auto) 4.3 Eos % (Auto) 0.1 Baso % (Auto) 0.2 Absolute Neuts (auto) 23.5 H Absolute Lymphs (auto) 0.91 Nucleated RBC % 0 Differential Comment SCANNED ESR 6 Sodium 135 L Potassium 3.9 Chloride 104 Carbon Dioxide 25.0 Anion Gap 6 BUN 17 Creatinine 1.10 H Est GFR (MDRD) Af Amer 63 Est GFR (MDRD) Non-Af 52 L BUN/Creatinine Ratio 15.5 Glucose 121 H Lactic Acid 2.2 H* Calcium 9.6 C-React Prot Ext Range 27.90 H Radiography Diagnostic Testing: Clinical Impression(s) from Imaging Studies Tibia/Fibula X-Ray 01/12/24 15:46 IMPRESSION: No acute bony injury. Electronically Signed: Stephen Jimenez DO at 16:10 EDT , Discharge Plan Triage Chief Complaint: Edema ED Midlevel Provider: [place] ED Provider: Jorgito Colon Dx/Rx/DC Orders Clinical Impression: Cellulitis of leg, right, Sepsis Prescriptions: No Action cholecalciferol (vitamin D3) 125 mcg (5,000 unit) tablet 125 mcg PO DAILY trazodone 50 mg tablet 50 mg PO QHS PRN (Reason: insomnia) aspirin 81 MG tablet,chewable 81 mg PO DAILY@0800 Qty: 90 0RF famotidine [Acid Controller] 20 mg tablet 20 mg PO DAILY PRN (Reason: heartburn) alendronate 35 mg tablet 35 mg PO MO estradiol 0.01 % (0.1 mg/gram) cream 1 g vaginal .COMPLEX Rx Instructions: 1 g vaginal 1gm each night for 2 weeks, then 2x a week; NEEDED Complex B-100 Tablet Extended Release 1 tab PO DAILY psyllium husk [Daily Fiber] 0.52 gram capsule 0.52 g PO DAILY metoprolol tartrate 25 mg tablet 12.5 mg PO BID Qty: 90 3RF atorvastatin 20 mg tablet 20 mg PO QHS Qty: 90 3RF levothyroxine 75 mcg tablet 75 mcg PO DAILY Qty: 90 3RF lisinopril-hydrochlorothiazide 20-12.5 mg tablet 0.5 tab PO DAILY Qty: 90 1RF Primary Care Provider: Jodie Yanes Referrals: Jodie Yanes MD [Primary Care Provider] - Print Language: [place]
--- NOTE | 2024-01-12 15:46 | RAD_ITS ---
INDICATION: pain EXAMINATION/TECHNIQUE: X-RAY - RIGHT XR Tibia/Fibula 2 Views COMPARISON: FINDINGS: SOFT TISSUES: No soft tissue swelling or gas. No radiopaque foreign body. BONES/JOINTS: No acute fracture or subluxation.. There is a total knee prosthesis in place.. No sclerotic or destructive changes observed. RAD/Tibia & Fibula 2 Views IMPRESSION: No acute bony injury. Electronically Signed: Stephen Jimenez DO at 16:10 EDT ,
[2024-01-12 16:09] LABS: Absolute Lymphocyte Count 0.91 X10^3/uL (0.83-4.51); Absolute Neutrophil Count 23.5 X10^3/uL (2.0-7.7); Basophil# 0.06 X10^3/uL; Basophil% 0.2 % (0-1); Eosinophil# 0.03 X10^3/uL; Eosinophils% 0.1 % (0-5); Hematocrit 43.5 % (37-47); Hemoglobin 14.8 g/dL (12.0-15.0); Lymphocyte # 0.91 X10^3/ul (0.83-4.51); Lymphocyte % 3.5 % (19-41); Mean Corpuscular Volume 96.9 fL (81-99); Mean Platelet Vol. 9.4 fl (6.2-12.0); Monocyte% 4.3 % (0-10); NRBC Flagged by Analyzer 0 % (0-5); Neutrophil # 23.53 X10^3/uL (2.7-7.7); Neutrophil % 91.2 % (47-70); POSITIVE DIFFERENTIAL YES; Platelet Count 242 K/mm3 (150-450); RBC Distribution Width CV 13.8 % (11.6-14.6); Red Blood Count 4.49 M/mm3 (4.2-5.4); White Blood Count 25.8 K/mm3 (4.4-11.0)
[2024-01-12 16:13] LABS: Differential Indicated SCAN CRITERIA MET
[2024-01-12 16:22] LABS: Anion Gap 6 (5-15); BUN 17 mg/dL (7-18); BUN/Creat Ratio 15.5 RATIO (10-20); Calcium,Total 9.6 mg/dL (8.5-10.1); Chloride 104 mmol/L (98-107); EST Glomerular Filtration Rate 52 mL/min (>60); Est Glom Filt Rate - Afr Amer 63 mL/min (>60); Glucose 121 mg/dL (74-106); Potassium 3.9 mmol/L (3.5-5.1); Sodium Level 135 mmol/L (136-145)
[2024-01-12 16:34] LABS: Lactic Acid 2.2 mmol/L (0.4-1.9)
[2024-01-12] MEDS: Piperacil/Tazobactam 3.375 GM in 0.9% Normal Saline (50mL MB+) 50 ML IV (16:43)
[2024-01-12 17:02] LABS: Differential Comment SCANNED
[2024-01-12 17:11] LABS: Erythrocyte Sedimentation Rate 6 mm/hr (0-30)
[2024-01-12] MEDS: Vancomycin HCl 1,500 MG in 0.9% Normal Saline (500mL Bag) 500 ML 250 MG IV (17:15)
[2024-01-12] MEDS: 0.9% Normal Saline (1000mL) 1,000 ML 999 ML IV (17:15)
--- NOTE | 2024-01-12 17:23 | HP.PCM.HOS_ITS ---
[facility] - General General Date of Service: 01/12/24 Chief Complaint: Right lower leg redness and swelling HPI Narrative ROMERO PONCE, is a 73 F who presents to the emergency room at [facility] for evaluation of redness and swelling of her right lower leg which began approximately 1 PM today. Patient stated that earlier this morning she had 101.8 temperature. Labs showed an elevated white blood cell count at 25.8, creatinine was 1.1, glucose was 121, and lactic acid was 2.2. Patient was given IV vancomycin and IV Zosyn in the emergency room, she will be admitted to [facility] for severe sepsis from right lower leg cellulitis, I have decided to administer Ancef and vancomycin while she is in the hospital. Patient appears hemodynamically stable and I feel that she would be appropriate for a [facility] admission. [facility] Medical History Abnormal CT of the abdomen Gallstones Bloating Flu vaccine need Hammer toe Preoperative evaluation to rule out surgical contraindication TIA (transient ischemic attack) Psoriasis Thyroid disease GERD (gastroesophageal reflux disease) Osteopenia Neuropathy Carpal tunnel syndrome Arthritis Atherosclerosis of coronary artery of [place] heart without angina pectoris Non-STEMI (non-ST elevated myocardial infarction) (~07/2017) Hypertension Hyperlipidemia Home Medications ?Medication ?Instructions ?Recorded ?Last Taken ?Type aspirin 81 mg chewable tablet 81 mg PO DAILY@0800 ##90 07/26/17 01/12/24 Rx cholecalciferol (vitamin D3) 125 125 mcg PO DAILY 07/04/21 01/12/24 History mcg (5,000 unit) tablet metoprolol tartrate 25 mg tablet 12.5 mg (1/2 x 25 mg) PO BID #90 04/09/23 01/12/24 Rx tabs atorvastatin 20 mg tablet 20 mg PO QHS #90 tabs 05/13/23 01/11/24 Rx levothyroxine 75 mcg tablet 75 mcg PO DAILY #90 tabs 09/11/23 01/12/24 Rx lisinopril 20 0.5 tab PO DAILY #90 tabs 11/28/23 01/12/24 Rx mg-hydrochlorothiazide 12.5 mg tablet trazodone 50 mg tablet 50 mg PO QHS PRN insomnia 01/07/24 01/11/24 History alendronate 35 mg tablet 35 mg PO MO 01/12/24 01/06/24 History estradiol 0.01% (0.1 mg/gram) 1 g vaginal .COMPLEX 01/12/24 Unknown History vaginal cream famotidine 20 mg tablet (Acid 20 mg PO DAILY PRN heartburn 01/12/24 Unknown History Controller) psyllium husk 0.52 gram capsule 0.52 g PO DAILY 01/12/24 Unknown History (Daily Fiber) vitamin B complex (Complex B-100 1 tab PO DAILY 01/12/24 01/12/24 History tablet,extended release) Allergy/AdvReac Type Severity Reaction Status Date / Time Sulfa (Sulfonamide Allergy Rash Verified 01/12/24 15:19 Antibiotics) Family History Brother Alcoholism Myocardial infarction Kidney disease Multiple myeloma Mother Arthritis Blood clot in vein Father Cancer Renal & Skin Kidney disease Surgical History History of left knee replacement History of colonoscopy (07/02/17) History of tubal ligation History of tonsillectomy and adenoidectomy History of hysterectomy History of carpal tunnel surgery of right wrist History of bladder suspension procedure History of foot surgery Social History Smoking Status: Never smoker second hand exposure: No alcohol intake: current alcohol intake frequency: a few times a week Alcohol type: wine substance use type: does not use caffeine: Yes frequency: 3-4 times per week ROS Constitutional Constitutional: Reports chills, malaise and other Details: Patient states she had a fever this morning of 101.8 ; Denies anorexia, change in weight, fever(s), night sweats or weakness Eyes Eyes: Denies blurry vision, change in vision, discharge from eye(s) or eye pain Cardiovascular Cardiovascular: Denies chest pain, claudication, dyspnea on exertion, edema or palpitations Respiratory/Chest Respiratory/Chest: Denies cough, hemoptysis, shortness of breath at rest or shortness of breath with exertion Gastrointestinal Gastrointestinal: Denies abdominal pain, constipation, diarrhea, hematemesis, hematochezia, melena, nausea or vomiting Genitourinary Genitourinary: Denies dysuria, hematuria, urinary frequency, urinary hesitancy, urinary incontinence or urinary urgency Musculoskeletal Musculoskeletal: Reports other Details: Right lower leg edema and redness starting at 1 PM today ; Denies back pain, joint pain, joint stiffness, joint swelling, myalgias or neck pain Neurologic Neurologic: Denies abnormal gait, abnormal speech, dizziness, focal weakness, headache(s), loss of vision, numbness, other visual disturbances, paresthesias, syncope or tingling Psychiatric Psychiatric: Denies anxiety, cognitive impairment, depression, irritability, mood swings or suicidal ideation Endocrine Endocrinology: Denies change in body appearance, cold intolerance, excessive sweating, heat intolerance, polydipsia or polyuria Hematologic/Lymphatic Hematologic/Lymphatic: Denies none, anemia, easy bleeding, easy bruising or lymphadenopathy Allergic/Immunologic Allergic/Immunologic: Denies rhinitis, urticaria, eczemia or asthma Vital Signs Vital Signs Vital Signs: 01/12/24 15:16 01/12/24 15:44 01/12/24 15:55 Temperature 98.9 F 99.4 F H Temperature Source Temporal Oral Pulse Rate 100 100 Respiratory Rate 15 15 Respiratory Effort Normal Non-Labored Respiratory Pattern Normal Blood Pressure 124/73 H 124/73 H Blood Pressure Mean 90 90 Pulse Ox 97 97 Oxygen Delivery Method Room Air Room Air 01/12/24 16:23 01/12/24 17:00 Temperature 99.4 F H 98.7 F Temperature Source Oral Oral Pulse Rate 101 H 92 Respiratory Rate 20 H 20 H Respiratory Effort Respiratory Pattern Blood Pressure 112/65 104/60 Blood Pressure Mean 80 74 Pulse Ox 99 Oxygen Delivery Method Room Air Weight Weight: 95.2 kg Body Mass Index (BMI) 34.9 Physical Exam Const alert, oriented x3, no apparent distress and healthy appearing General Appearance: cooperative, well kempt and well developed Orientation / Consciousness: awake, oriented to person, oriented to place and oriented to time HEENT normocephalic, head/scalp atraumatic, hearing grossly normal bilaterally and moist oral mucous membranes Eyes PERRL, EOMs intact bilaterally and conjunctivae normal Neck supple, no JVD, thyroid normal and no carotid bruits General: trachea midline Resp normal respiratory effort, no retractions, no use of accessory muscles and clear to auscultation bilaterally Auscultation: Negative for rales, rhonchi or wheezes Cardio regular rate, regular rhythm, S1 normal heart sound, S2 normal heart sound, no murmurs, no rub and no gallops GI normal to inspection, nondistended, normoactive bowel sounds, soft to palpation, non-tender and non-distended Extremity Extremity Narrative: Patient has an area of edema and redness over her right lower leg in the pretibial area extending down to the ankle area, this area is warm and edematous. No area of breakdown is noted of the skin. Neuro oriented x3, CN's II-XII intact bilaterally, moves all extremities, no focal motor deficits and no sensory deficits noted Sensorium / Orientation: awake and alert Speech: speech normal Psych affect normal Results Lab / Micro Data 01/12/24 13:48 01/12/24 13:48 Labs: Laboratory Results - last 24 hr 01/12/24 13:48: WBC 25.8 H, RBC 4.49, Hgb 14.8, Hct 43.5, MCV 96.9, MCH 33.0 H, MCHC 34.0, RDW Std Deviation 49.0 H, RDW Coeff of Tory 13.8, Plt Count 242, MPV 9.4, Immature Gran % (Auto) 0.700, Neut % (Auto) 91.2 H, Lymph % (Auto) 3.5 L, [place] % (Auto) 4.3, Eos % (Auto) 0.1, Baso % (Auto) 0.2, Absolute Neuts (auto) 23.5 H, Absolute Lymphs (auto) 0.91, Nucleated RBC % 0, Differential Comment SCANNED, ESR 6, Sodium 135 L, Potassium 3.9, Chloride 104, Carbon Dioxide 25.0, Anion Gap 6, BUN 17, Creatinine 1.10 H, Est GFR (MDRD) Af Amer 63, Est GFR (MDRD) Non-Af 52 L, BUN/Creatinine Ratio 15.5, Glucose 121 H, Lactic Acid 2.2 H* , Calcium 9.6, C-React Prot Ext Range 27.90 H Imaging Radiology Impression Tibia/Fibula X-Ray 01/12/24 15:46 IMPRESSION: No acute bony injury. Electronically Signed: Stephen Jimenez DO at 16:10 EDT Reading Location ID and State: [facility] / [place] Tel [phone], Service support , Assessment & Plan Assessment/Plan (1) Sepsis: PLAN: Plan 1. Severe sepsis secondary to right lower leg cellulitis-patient will be admitted to [facility], she will be given IV fluids, she will be placed on IV vancomycin and IV Ancef, labs will be monitored #2 essential hypertension-patient will remain on her present medications, they will be adjusted if needed #3 hyperlipidemia-patient is on atorvastatin #4 hypothyroidism-patient is on Synthroid Total clinical time spent by myself addressing the patient's medical issues, reviewing all of her data, and collaborating with patient's care team: 75 minutes Charges/Coding Visit Charges Inpatient E&M: 09510 Init Hosp L3
--- NOTE | 2024-01-12 18:22 | PCM.RX.CS ---
Consult Antibiotic Management Pharmacy has been consulted to manage selected antibiotic: Vancomycin Type of Intervention Type of Consult: New start Suspected Infection Suspected Infection: Skin/Soft tissue Prior Doses of Antibiotics Prior Doses of Antibiotics Received/Current Regimen: Vancomycin 1500 mg IV given 01/12/24 @ 1933 Labs Labs: Sodium 135 mmol/L (136-145) L 01/12/24 13:48 Potassium 3.9 mmol/L (3.5-5.1) 01/12/24 13:48 Chloride 104 mmol/L (98-107) 01/12/24 13:48 Carbon Dioxide 25.0 mmol/L (21.0-32.0) 01/12/24 13:48 Anion Gap 6 (5-15) 01/12/24 13:48 BUN 17 mg/dL (7-18) 01/12/24 13:48 Creatinine 1.10 mg/dL (0.55-1.02) H 01/12/24 13:48 Est GFR (MDRD) Af Amer 63 mL/min (>60) 01/12/24 13:48 Est GFR (MDRD) Non-Af 52 mL/min (>60) L 01/12/24 13:48 BUN/Creatinine Ratio 15.5 RATIO (10-20) 01/12/24 13:48 Glucose 121 mg/dL (74-106) H 01/12/24 13:48 Dosing Weight Weight used for dosin kg Estimated Creatinine Clearance Estimated Creatinine Clearance: ~53 Goal Trough Goal Trough: 10-15 mcg/mL Pharmacy Plan for Drug Dosing Pharmacy Plan for Drug Dosing: Vancomycin 1500 mg IV x 1 , followed by 750 mg IV Q12H Pharmacy Service will continue to monitor and adjust dosing as required. Follow-Up Labs Follow-Up Labs: Trough: Vancomycin Date/Time Labs Ordered Labs to be done on [date and time ordered]: 01/14/24 @ 8863
[2024-01-12] MEDS: 0.9% Normal Saline (1000mL) 1,000 ML 125 ML IV (18:38)
[2024-01-12 19:55] LABS: Reflex Lactate? Y
[2024-01-12] MEDS: Acetaminophen 500 MG Tablet 1000 MG PO (20:18)
[2024-01-12 21:27] LABS: Lactic Acid 1.8 mmol/L (0.4-1.9)
[2024-01-12] MEDS: Heparin Injection (Vial) 5,000 UNIT/ML VIAL 5000 UNIT SC (22:06)
[2024-01-12] MEDS: Cefazolin 2 GM in 0.9% Normal Saline (100mL Bag) 100 ML IV (22:06)
[2024-01-12] MEDS: Metoprolol Tartrate 25 MG Tablet 12.5 MG PO (22:06)
[2024-01-12] MEDS: Atorvastatin Calcium 20 MG Tablet PO (22:06)
[2024-01-12] MEDS: traZODone 50 MG Tablet PO (22:17)
--- NOTE | 2024-01-12 23:29 | NURSING ---
Sepsis criteria completed. Note sent to Dr. Faye for sepsis note.
[2024-01-13] VITALS (8 sets, daily range): BP systolic 95–121; BP diastolic 52–62; PULSE 72–89; RESP 16–20; TEMP 36.6–37.7; O2SAT 93–99
--- NOTE | 2024-01-13 00:02 | SEPSISATNOTE ---
Sepsis Attestation Sepsis Attestation: Agree w/Sepsis Date exam was performed: 01/12/24 Time exam was performed: 18:00 Possible Source of Sepsis: Skin/soft tissue Sepsis Organ Dysfunction Criteria Present: Lactic Acid > 2 mmol/L Supportive Findings: ROMERO PONCE, is a 73 F who presents to the emergency room at [facility] for evaluation of redness and swelling of her right lower leg which began approximately 1 PM today. Patient stated that earlier this morning she had 101.8 temperature. Labs showed an elevated white blood cell count at 25.8, creatinine was 1.1, glucose was 121, and lactic acid was 2.2. Patient was given IV vancomycin and IV Zosyn in the emergency room, she will be admitted to [facility] for severe sepsis from right lower leg cellulitis, I have decided to administer Ancef and vancomycin while she is in the hospital. Patient appears hemodynamically stable and she was appropriate for a Med-Surg admission. Update: I was called late this evening by the Med-water pollution scientist to make sure patient had an updated sepsis note. Ms. Ponce's vital signs have improved with a temperature of 99.9, blood pressure of 116/62 mmHg, respiratory rate of 19, pulse rate of 90 and saturating 97% on room air. She denies new complaints. Fluid Resuscitation Fluid resuscitation indicated?: Yes Fluid Resuscitation ordered: 30 ml/kg fluid bolus ordered Amount of fluid ordered: 3 Sepsis Note Date exam was performed: 01/13/24 Time exam was performed: 00:04 Sepsis Attestation: Sepsis re-evaluation was performed Response to fluids: Fluid responsive hypotension
[2024-01-13] MEDS: 0.9% Normal Saline (1000mL) 1,000 ML 125 ML IV ×3 (03:05→18:34)
[2024-01-13] MEDS: Acetaminophen 325 MG Tablet 650 MG PO ×2 (04:20→16:52)
[2024-01-13] MEDS: Vancomycin HCl 750 MG in 0.9% Normal Saline (250mL Bag) 250 ML 250 MG IV ×2 (04:20→16:53)
[2024-01-13] MEDS: Cefazolin 2 GM in 0.9% Normal Saline (100mL Bag) 100 ML IV ×3 (05:55→21:04)
[2024-01-13] MEDS: Levothyroxine 75 MCG Tablet PO (05:55)
[2024-01-13 06:30] LABS: Absolute Lymphocyte Count 1.36 X10^3/uL (0.83-4.51); Absolute Neutrophil Count 21.3 X10^3/uL (2.0-7.7); Basophil# 0.06 X10^3/uL; Basophil% 0.3 % (0-1); Hematocrit 34.5 % (37-47); Hemoglobin 11.6 g/dL (12.0-15.0); Lymphocyte # 1.36 X10^3/ul (0.83-4.51); Lymphocyte % 5.8 % (19-41); Mean Corp Hgb Conc 33.6 g/dL (32-36); Mean Corpuscular Hgb 32.4 pg (27.0-32.0); Mean Corpuscular Volume 96.4 fL (81-99); Mean Platelet Vol. 9.7 fl (6.2-12.0); Monocyte# 0.73 X10^3/uL; Monocyte% 3.1 % (0-10); NRBC Flagged by Analyzer 0.1 % (0-5); Neutrophil # 21.27 X10^3/uL (2.7-7.7); Neutrophil % 89.8 % (47-70); POSITIVE DIFFERENTIAL YES; Platelet Count 185 K/mm3 (150-450); RBC Distribution Width CV 14.2 % (11.6-14.6); RBC Distribution Width SD 50.1 fl (35.1-43.9); Red Blood Count 3.58 M/mm3 (4.2-5.4); White Blood Count 23.7 K/mm3 (4.4-11.0)
[2024-01-13 06:34] LABS: Differential Indicated SCAN CRITERIA MET
[2024-01-13 06:56] LABS: Differential Comment SCANNED
[2024-01-13 06:57] LABS: AST(SGOT) 81 U/L (15-37); Alanine Aminotransfer ALT/SGPT 56 U/L (13-56); Albumin, Serum 2.7 g/dL (3.2-5.0); Alkaline Phosphatase 44 U/L (45-117); Anion Gap 8 (5-15); BUN 17 mg/dL (7-18); BUN/Creat Ratio 19.2 RATIO (10-20); Chloride 109 mmol/L (98-107); Creatinine, Serum 0.88 mg/dL (0.55-1.02); EST Glomerular Filtration Rate 67 mL/min (>60); Est Glom Filt Rate - Afr Amer 81 mL/min (>60); Estimated Creatinine Clearance 68.58 ml/min; Globulin 2.7 g/dL (2.2-4.2); Glucose 103 mg/dL (74-106); Potassium 3.2 mmol/L (3.5-5.1); Protein, Total 5.4 g/dL (6.4-8.2); Sodium Level 137 mmol/L (136-145)
--- NOTE | 2024-01-13 10:03 | PCM.PN.HOSP ---
Reason for Visit Reason for Visit: Diagnoses Sepsis, unspecified organism (01/12/24) Subjective Subjective Patient was seen and examined today, she has continued redness over the lower part of her right leg with edema noted, this looks minimally improved since yesterday. Patient's white blood cell count is still elevated and she is running a low-grade temperature. Patient states she feels a little bit better than yesterday. Objective Data Objective Data Vital Signs: Vital Signs Temp Pulse Resp BP Pulse Ox O2 Del Method 98 F 72 16 95/52 L 94 Room Air 01/13/24 08:27 01/13/24 08:27 01/13/24 08:27 01/13/24 08:27 01/13/24 08:27 01/13/24 08:31 Oxygen Delivery Method Room Air Weight: 92.079 kg Body Mass Index (BMI) 30.9 Intake & Output: Intake and Output for Last 24 Hours 01/11/24 01/12/24 01/13/24 23:59 23:59 23:59 Intake Total 1689 Balance 1689 Lab / Micro Data 01/13/24 05:35 01/13/24 05:35 Labs: Laboratory Results - last 24 hr 01/12/24 13:48: WBC 25.8 H, RBC 4.49, Hgb 14.8, Hct 43.5, MCV 96.9, MCH 33.0 H, MCHC 34.0, RDW Std Deviation 49.0 H, RDW Coeff of Tory 13.8, Plt Count 242, MPV 9.4, Immature Gran % (Auto) 0.700, Neut % (Auto) 91.2 H, Lymph % (Auto) 3.5 L, [place] % (Auto) 4.3, Eos % (Auto) 0.1, Baso % (Auto) 0.2, Absolute Neuts (auto) 23.5 H, Absolute Lymphs (auto) 0.91, Nucleated RBC % 0, Differential Comment SCANNED, ESR 6, Sodium 135 L, Potassium 3.9, Chloride 104, Carbon Dioxide 25.0, Anion Gap 6, BUN 17, Creatinine 1.10 H, Est GFR (MDRD) Af Amer 63, Est GFR (MDRD) Non-Af 52 L, BUN/Creatinine Ratio 15.5, Glucose 121 H, Calcium 9.6, C-React Prot Ext Range 27.90 H 01/12/24 15:48: Lactic Acid 2.2 H* 01/12/24 19:44: Lactic Acid 1.8 01/13/24 05:35: WBC 23.7 H, RBC 3.58 L, Hgb 11.6 L, Hct 34.5 L, MCV 96.4, MCH 32.4 H, MCHC 33.6, RDW Std Deviation 50.1 H, RDW Coeff of Tory 14.2, Plt Count 185, MPV 9.7, Immature Gran % (Auto) 1.000 H, Neut % (Auto) 89.8 H, Lymph % (Auto) 5.8 L, [place] % (Auto) 3.1, Eos % (Auto) 0.0, Baso % (Auto) 0.3, Absolute Neuts (auto) 21.3 H, Absolute Lymphs (auto) 1.36, Nucleated RBC % 0.1, Differential Comment SCANNED, Sodium 137, Potassium 3.2 L, Chloride 109 H, Carbon Dioxide 20.0 L, Anion Gap 8, BUN 17, Creatinine 0.88, Estim Creat Clear Calc 68.58, Est GFR (MDRD) Af Amer 81, Est GFR (MDRD) Non-Af 67, BUN/Creatinine Ratio 19.2, Glucose 103, Calcium 8.0 L, Total Bilirubin 1.00, AST 81 H, ALT 56, Alkaline Phosphatase 44 L, Total Protein 5.4 L, Albumin 2.7 L, Globulin 2.7, Albumin/Globulin Ratio 1.0 Radiography Diagnostic Testing: Radiology Impression Tibia/Fibula X-Ray 01/12/24 15:46 IMPRESSION: No acute bony injury. Electronically Signed: Stephen Jimenez DO at 16:10 EDT Reading Location ID and State: [facility] / [place] Tel [phone], Service support , Physical Exam Narrative alert, oriented x3, no apparent distress and healthy appearing General Appearance: cooperative, well kempt and well developed Orientation / Consciousness: awake, oriented to person, oriented to place and oriented to time HEENT normocephalic, head/scalp atraumatic, hearing grossly normal bilaterally and moist oral mucous membranes Eyes PERRL, EOMs intact bilaterally and conjunctivae normal Neck supple, no JVD, thyroid normal and no carotid bruits General: trachea midline Resp normal respiratory effort, no retractions, no use of accessory muscles and clear to auscultation bilaterally Auscultation: Negative for rales, rhonchi or wheezes Cardio regular rate, regular rhythm, S1 normal heart sound, S2 normal heart sound, no murmurs, no rub and no gallops GI normal to inspection, nondistended, normoactive bowel sounds, soft to palpation, non-tender and non-distended Extremity Extremity Narrative: Patient has an area of edema and redness over her right lower leg in the pretibial area extending down to the ankle area, this area is warm and edematous. No area of breakdown is noted of the skin. Neuro oriented x3, CN's II-XII intact bilaterally, moves all extremities, no focal motor deficits and no sensory deficits noted Sensorium / Orientation: awake and alert Speech: speech normal Psych affect normal Assessment & Plan Assessment/Plan (1) Sepsis: PLAN: Plan 1. Severe sepsis secondary to right lower leg cellulitis-patient will continue on IV Ancef and vancomycin, I will have infectious diseases see the patient tomorrow in consultation, cultures are pending at this time. #2 essential hypertension-patient will remain on her present medications, they will be adjusted if needed #3 hyperlipidemia-patient is on atorvastatin #4 hypothyroidism-patient is on Synthroid Total clinical time spent by myself addressing the patient's medical issues, reviewing all of her data, and collaborating with patient's care team: 35 minutes Charges/Coding Visit Charges Inpatient E&M: 51581 Subs Hosp L2
[2024-01-13] MEDS: Aspirin 81 MG TAB.CHEW PO (10:23)
[2024-01-13] MEDS: Heparin Injection (Vial) 5,000 UNIT/ML VIAL 5000 UNIT SC ×2 (10:24→21:06)
[2024-01-13] MEDS: Potassium Chloride Oral Tablet 20 MEQ PO (10:28)
[2024-01-13] MEDS: Metoprolol Tartrate 25 MG Tablet 12.5 MG PO ×2 (11:19→21:08)
[2024-01-13] MEDS: Atorvastatin Calcium 20 MG Tablet PO (21:08)
[2024-01-13] MEDS: traZODone 50 MG Tablet PO (21:14)
[2024-01-14] VITALS (7 sets, daily range): BP systolic 117–127; BP diastolic 53–74; PULSE 66–73; RESP 16–18; TEMP 36.6–38; O2SAT 95–97
[2024-01-14] MEDS: 0.9% Normal Saline (1000mL) 1,000 ML 125 ML IV ×4 (02:01→23:15)
[2024-01-14] MEDS: Acetaminophen 325 MG Tablet 650 MG PO (02:14)
[2024-01-14 04:47] LABS: Absolute Lymphocyte Count 1.65 X10^3/uL (0.83-4.51); Absolute Neutrophil Count 12.9 X10^3/uL (2.0-7.7); Basophil# 0.03 X10^3/uL; Basophil% 0.2 % (0-1); Eosinophil# 0.02 X10^3/uL; Eosinophils% 0.1 % (0-5); Hematocrit 32.1 % (37-47); Hemoglobin 10.8 g/dL (12.0-15.0); Lymphocyte # 1.65 X10^3/ul (0.83-4.51); Lymphocyte % 10.7 % (19-41); Mean Corp Hgb Conc 33.6 g/dL (32-36); Mean Corpuscular Hgb 32.7 pg (27.0-32.0); Mean Corpuscular Volume 97.3 fL (81-99); Mean Platelet Vol. 9.8 fl (6.2-12.0); Monocyte# 0.75 X10^3/uL; Monocyte% 4.9 % (0-10); NRBC Flagged by Analyzer 0 % (0-5); Neutrophil # 12.92 X10^3/uL (2.7-7.7); Neutrophil % 83.5 % (47-70); Platelet Count 156 K/mm3 (150-450); RBC Distribution Width CV 14.9 % (11.6-14.6); RBC Distribution Width SD 53.6 fl (35.1-43.9); White Blood Count 15.5 K/mm3 (4.4-11.0)
[2024-01-14 05:11] LABS: Anion Gap 7 (5-15); BUN 13 mg/dL (7-18); BUN/Creat Ratio 16.9 RATIO (10-20); Calcium,Total 7.9 mg/dL (8.5-10.1); Chloride 115 mmol/L (98-107); Creatinine, Serum 0.77 mg/dL (0.55-1.02); EST Glomerular Filtration Rate 78 mL/min (>60); Est Glom Filt Rate - Afr Amer 95 mL/min (>60); Estimated Creatinine Clearance 75.43 ml/min; Glucose 106 mg/dL (74-106); Potassium 3.3 mmol/L (3.5-5.1); Sodium Level 141 mmol/L (136-145)
[2024-01-14 05:12] LABS: Vancomycin, Trough Level 10.3 ug/mL (5.0-15.0)
[2024-01-14] MEDS: Vancomycin HCl 750 MG in 0.9% Normal Saline (250mL Bag) 250 ML 250 MG IV ×2 (05:32→16:58)
--- NOTE | 2024-01-14 05:32 | PCM.RX.CS ---
Consult Antibiotic Management Pharmacy has been consulted to manage selected antibiotic: Vancomycin Type of Intervention Type of Consult: Follow-up Suspected Infection Suspected Infection: Skin/Soft tissue Labs Labs: Sodium 141 mmol/L (136-145) 01/14/24 04:37 Potassium 3.3 mmol/L (3.5-5.1) L 01/14/24 04:37 Chloride 115 mmol/L (98-107) H 01/14/24 04:37 Carbon Dioxide 19.0 mmol/L (21.0-32.0) L 01/14/24 04:37 Anion Gap 7 (5-15) 01/14/24 04:37 BUN 13 mg/dL (7-18) 01/14/24 04:37 Creatinine 0.77 mg/dL (0.55-1.02) 01/14/24 04:37 Est GFR (MDRD) Af Amer 95 mL/min (>60) 01/14/24 04:37 Est GFR (MDRD) Non-Af 78 mL/min (>60) 01/14/24 04:37 BUN/Creatinine Ratio 16.9 RATIO (10-20) 01/14/24 04:37 Glucose 106 mg/dL (74-106) 01/14/24 04:37 Vancomycin Trough 10.3 ug/mL (5.0-15.0) 01/14/24 04:37 Dosing Weight Weight used for dosin kg Estimated Creatinine Clearance Estimated Creatinine Clearance: 75 Goal Trough Goal Trough: 10-15 mcg/mL Pharmacy Plan for Drug Dosing Pharmacy Plan for Drug Dosing: Vancomycin trough level of 10.3, drawn 11.75hrs post-dose, was within the target range of 10-15. Will continue dosing at 750mg q12h, and will draw another trough level in two days. Pharmacy Service will continue to monitor and adjust dosing as required. Follow-Up Labs Follow-Up Labs: Trough: Vancomycin Date/Time Labs Ordered Labs to be done on [date and time ordered]: 01/16/24 @1116
[2024-01-14] MEDS: Levothyroxine 75 MCG Tablet PO (05:35)
[2024-01-14] MEDS: Cefazolin 2 GM in 0.9% Normal Saline (100mL Bag) 100 ML IV ×3 (06:54→21:41)
[2024-01-14] MEDS: Metoprolol Tartrate 25 MG Tablet 12.5 MG PO ×2 (09:40→21:42)
[2024-01-14] MEDS: Heparin Injection (Vial) 5,000 UNIT/ML VIAL 5000 UNIT SC ×2 (09:40→21:44)
[2024-01-14] MEDS: Aspirin 81 MG TAB.CHEW PO (09:41)
[2024-01-14] MEDS: hydroCHLOROthiazide 6.25mg TAB 6.25 MG PO (09:41)
[2024-01-14] MEDS: Lisinopril 10 MG Tablet PO (09:42)
--- NOTE | 2024-01-14 10:01 | CON.PCM.ID_ITS ---
Assessment & Plan Assessment/Plan (1) Cellulitis of leg, right: PLAN: Improving. Wbc much better, lactate normalized. Cont vanc/cefazolin. Plan on po abx at discharge. Will follow, thank you (2) Sepsis: HPI Consult Data Date of Consult: 01/14/24 HPI Narrative Reason for Consultation: cellulitis HPI Narrative: ROMERO PONCE, is a 73 F with prior knee replacement and hardware in R foot, presented 01/11 to ED with sudden onset progressive R lower leg redness, swelling, warmth, mild pain, chills. No drainage, no known inciting events, no joint pain. Admitted here on vanc/cefazolin, feeling a little better this AM. Full ROS performed and neg except as noted above. [facility] Medical History Myocardial infarct Abnormal CT of the abdomen Gallstones Bloating Flu vaccine need Hammer toe Preoperative evaluation to rule out surgical contraindication TIA (transient ischemic attack) Psoriasis Thyroid disease GERD (gastroesophageal reflux disease) Osteopenia Neuropathy Carpal tunnel syndrome Arthritis Atherosclerosis of coronary artery of [place] heart without angina pectoris Non-STEMI (non-ST elevated myocardial infarction) (~07/2017) Hypertension Hyperlipidemia Home Medications ?Medication ?Instructions ?Recorded ?Last Taken ?Type aspirin 81 mg chewable tablet 81 mg PO DAILY@0800 ##90 07/26/17 01/12/24 Rx cholecalciferol (vitamin D3) 125 125 mcg PO DAILY 07/04/21 01/12/24 History mcg (5,000 unit) tablet metoprolol tartrate 25 mg tablet 12.5 mg (1/2 x 25 mg) PO BID #90 04/09/23 01/12/24 Rx tabs atorvastatin 20 mg tablet 20 mg PO QHS #90 tabs 05/13/23 01/11/24 Rx levothyroxine 75 mcg tablet 75 mcg PO DAILY #90 tabs 09/11/23 01/12/24 Rx lisinopril 20 0.5 tab PO DAILY #90 tabs 11/28/23 01/12/24 Rx mg-hydrochlorothiazide 12.5 mg tablet trazodone 50 mg tablet 50 mg PO QHS PRN insomnia 01/07/24 01/11/24 History alendronate 35 mg tablet 35 mg PO MO 01/12/24 01/06/24 History estradiol 0.01% (0.1 mg/gram) 1 g vaginal .COMPLEX 01/12/24 Unknown History vaginal cream famotidine 20 mg tablet (Acid 20 mg PO DAILY PRN heartburn 01/12/24 Unknown History Controller) psyllium husk 0.52 gram capsule 0.52 g PO DAILY 01/12/24 Unknown History (Daily Fiber) vitamin B complex (Complex B-100 1 tab PO DAILY 01/12/24 01/12/24 History tablet,extended release) Allergy/AdvReac Type Severity Reaction Status Date / Time Sulfa (Sulfonamide Allergy Rash Verified 01/12/24 15:19 Antibiotics) Family History Brother Alcoholism Myocardial infarction Kidney disease Multiple myeloma Mother Arthritis Blood clot in vein Father Cancer Renal & Skin Kidney disease Surgical History History of left knee replacement History of colonoscopy (07/02/17) History of tubal ligation History of tonsillectomy and adenoidectomy History of hysterectomy History of carpal tunnel surgery of right wrist History of bladder suspension procedure History of foot surgery Social History Smoking Status: Never smoker second hand exposure: No alcohol intake: current alcohol intake frequency: a few times a week Alcohol type: wine substance use type: does not use caffeine: Yes frequency: 3-4 times per week Physical Exam Const alert, oriented x3 and no apparent distress General Appearance: cooperative HEENT normocephalic and head/scalp atraumatic Eyes PERRL and EOMs intact bilaterally Neck supple and No nodes Resp normal air movement and clear to auscultation bilaterally Cardio regular rate and regular rhythm GI soft to palpation, non-tender and non-distended Extremity General Extremity: edema Skin Skin Narrative: R lower leg with redness, warmth, swelling. Minimal pain. Neuro CN's II-XII intact bilaterally Lab / Micro Data Attestation: I reviewed the patient's lab results. 01/14/24 04:37 01/14/24 04:37 Labs: Laboratory Results - last 24 hr 01/14/24 04:37: WBC 15.5 H, RBC 3.30 L, Hgb 10.8 L, Hct 32.1 L, MCV 97.3, MCH 32.7 H, MCHC 33.6, RDW Std Deviation 53.6 H, RDW Coeff of Tory 14.9 H, Plt Count 156, MPV 9.8, Immature Gran % (Auto) 0.600, Neut % (Auto) 83.5 H, Lymph % (Auto) 10.7 L, [place] % (Auto) 4.9, Eos % (Auto) 0.1, Baso % (Auto) 0.2, Absolute Neuts (auto) 12.9 H, Absolute Lymphs (auto) 1.65, Nucleated RBC % 0, Sodium 141, P otassium 3.3 L, Chloride 115 H, Carbon Dioxide 19.0 L, Anion Gap 7, BUN 13, Creatinine 0.77, Estim Creat Clear Calc 75.43, Est GFR (MDRD) Af Amer 95, Est GFR (MDRD) Non-Af 78, BUN/Creatinine Ratio 16.9, Glucose 106, Calcium 7.9 L, Vancomycin Trough 10.3
--- NOTE | 2024-01-14 11:00 | CASEMGMT ---
VITA KWAN Assessment: Face to Face with pt for initial transition planning/care coordination assessment. RN ANIYA introduced self and role at [facility], pt voices understanding and consents to assessment. Pt lying in bed in no distress. Pt is A&O x4 and answers all questions appropriately at this time. Care providers, pharmacy, and demographics verified/updated. 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 Pt states I with ADLs and IADLs. Transportation: Pt drives self and denies concerns with transportation. DME: cane, shower bench, bedside commode HHC/SNF: Denies Hx of. Pt states no concerns with going home at time of dc. Pt states no further concerns/needs. CM to follow. Advised pt to ask CM if any further question/concerns/needs arise, voices understanding. Pt Goal: Home Plan: Home no needs, CM will follow ID. Tyler GORMAN CM
--- NOTE | 2024-01-14 13:20 | PN.HOSP_ITS ---
Reason for Visit Reason for Visit: Diagnoses Sepsis, unspecified organism (01/12/24) Cellulitis of right lower limb (01/12/24) Subjective Subjective Patient was seen and examined today, she still has redness over her right lower leg, her white blood cell count has improved, talked briefly with infectious diseases about her care and they did not recommend changing her antibiotic coverage at this time. Objective Data Objective Data Vital Signs: Vital Signs Temp Pulse Resp BP Pulse Ox O2 Del Method 98 F 67 16 123/72 H 95 Room Air 01/14/24 10:12 01/14/24 10:12 01/14/24 10:12 01/14/24 10:12 01/14/24 10:12 01/14/24 10:13 Oxygen Delivery Method Room Air Weight: 92.079 kg Body Mass Index (BMI) 30.9 Intake & Output: Intake and Output for Last 24 Hours 01/12/24 01/13/24 01/14/24 23:59 23:59 23:59 Intake Total 1689 5272.5 / 5272.5 2668.75 / 2668.75 Balance 1689 5272.5 / 5272.5 2668.75 / 2668.75 Lab / Micro Data 01/14/24 04:37 01/14/24 04:37 Labs: Laboratory Results - last 24 hr 01/14/24 04:37: WBC 15.5 H, RBC 3.30 L, Hgb 10.8 L, Hct 32.1 L, MCV 97.3, MCH 32.7 H, MCHC 33.6, RDW Std Deviation 53.6 H, RDW Coeff of Tory 14.9 H, Plt Count 156, MPV 9.8, Immature Gran % (Auto) 0.600, Neut % (Auto) 83.5 H, Lymph % (Auto) 10.7 L, [place] % (Auto) 4.9, Eos % (Auto) 0.1, Baso % (Auto) 0.2, Absolute Neuts (auto) 12.9 H, Absolute Lymphs (auto) 1.65, Nucleated RBC % 0, Sodium 141, P otassium 3.3 L, Chloride 115 H, Carbon Dioxide 19.0 L, Anion Gap 7, BUN 13, Creatinine 0.77, Estim Creat Clear Calc 75.43, Est GFR (MDRD) Af Amer 95, Est GFR (MDRD) Non-Af 78, BUN/Creatinine Ratio 16.9, Glucose 106, Calcium 7.9 L, Vancomycin Trough 10.3 Physical Exam Narrative alert, oriented x3, no apparent distress and healthy appearing General Appearance: cooperative, well kempt and well developed Orientation / Consciousness: awake, oriented to person, oriented to place and oriented to time HEENT normocephalic, head/scalp atraumatic, hearing grossly normal bilaterally and moist oral mucous membranes Eyes PERRL, EOMs intact bilaterally and conjunctivae normal Neck supple, no JVD, thyroid normal and no carotid bruits General: trachea midline Resp normal respiratory effort, no retractions, no use of accessory muscles and clear to auscultation bilaterally Auscultation: Negative for rales, rhonchi or wheezes Cardio regular rate, regular rhythm, S1 normal heart sound, S2 normal heart sound, no murmurs, no rub and no gallops GI normal to inspection, nondistended, normoactive bowel sounds, soft to palpation, non-tender and non-distended Extremity Extremity Narrative: Patient has an area of edema and redness over her right lower leg in the pretibial area extending down to the ankle area, this area is warm and edematous. No area of breakdown is noted of the skin. Neuro oriented x3, CN's II-XII intact bilaterally, moves all extremities, no focal motor deficits and no sensory deficits noted Sensorium / Orientation: awake and alert Speech: speech normal Psych affect normal Assessment & Plan Assessment/Plan (1) Sepsis: PLAN: Plan 1. Severe sepsis secondary to right lower leg cellulitis-patient will continue on IV Ancef and vancomycin, continue present antibiotic coverage with adjustments per infectious diseases #2 essential hypertension-patient will remain on her present medications, they will be adjusted if needed #3 hyperlipidemia-patient is on atorvastatin #4 hypothyroidism-patient is on Synthroid Total clinical time spent by myself addressing the patient's medical issues, reviewing all of her data, and collaborating with patient's care team: 35 minutes Charges/Coding Visit Charges Inpatient E&M: 02621 Subs Hosp L2
--- NOTE | 2024-01-14 15:49 | CHAPLAIN ---
Type of Pastoral Visit _x__ Initial Visit ___ Follow-up Visit ___ On-call Visit ___ General Patient Visit ___ Spiritual Assessment ___ Family Conference ___ Bereavement ___ Rapid Response ___ Code Blue ___ Other (describe below) Pastoral Care Referral From _x__ Patient ___ Family ___ Nurse ___ Physician ___ Fabrication Department Supervisor ___ Screen Operator ___ Other (describe below) Sacrament/Intervention _x__ Active listening ___ Anointing ___ Druze ___ Bereavement ___ Communion ___ Melina exploration ___ ___ Life review _x__ Prayer ___ Reconciliation ___ Sacrament of Sick _x__ Supportive presence ___ Wedding ___ Other (describe below) Pastoral Comments patient recounts some of recent history and of her own issues of being impatient; listening ear, affirmation, and supportive presence given; prayer is welcomed
[2024-01-14] MEDS: Atorvastatin Calcium 20 MG Tablet PO (21:43)
[2024-01-14] MEDS: traZODone 50 MG Tablet PO (21:47)
[2024-01-15 05:14] VITALS: BP 125/72; PULSE 69; RESP 18; TEMP 37; O2SAT 97
[2024-01-15] MEDS: Vancomycin HCl 750 MG in 0.9% Normal Saline (250mL Bag) 250 ML 250 MG IV (05:15)
[2024-01-15] MEDS: 0.9% Normal Saline (1000mL) 1,000 ML 125 ML IV (05:17)
[2024-01-15] MEDS: Levothyroxine 75 MCG Tablet PO (05:18)
[2024-01-15] MEDS: Acetaminophen 325 MG Tablet 650 MG PO (06:19)
[2024-01-15 07:21] LABS: Absolute Lymphocyte Count 2.21 X10^3/uL (0.83-4.51); Basophil# 0.06 X10^3/uL; Basophil% 0.6 % (0-1); Eosinophil# 0.12 X10^3/uL; Eosinophils% 1.2 % (0-5); Hematocrit 33.5 % (37-47); Hemoglobin 11.2 g/dL (12.0-15.0); Lymphocyte # 2.21 X10^3/ul (0.83-4.51); Lymphocyte % 21.3 % (19-41); Mean Corp Hgb Conc 33.4 g/dL (32-36); Mean Corpuscular Hgb 31.9 pg (27.0-32.0); Mean Corpuscular Volume 95.4 fL (81-99); Mean Platelet Vol. 10.1 fl (6.2-12.0); Monocyte# 0.92 X10^3/uL; Monocyte% 8.8 % (0-10); NRBC Flagged by Analyzer 0 % (0-5); Neutrophil # 7.04 X10^3/uL (2.7-7.7); Neutrophil % 67.6 % (47-70); Platelet Count 161 K/mm3 (150-450); RBC Distribution Width CV 15.1 % (11.6-14.6); Red Blood Count 3.51 M/mm3 (4.2-5.4); White Blood Count 10.4 K/mm3 (4.4-11.0)
[2024-01-15 07:43] LABS: Anion Gap 6 (5-15); BUN 7 mg/dL (7-18); BUN/Creat Ratio 10.2 RATIO (10-20); Calcium,Total 8.2 mg/dL (8.5-10.1); Chloride 115 mmol/L (98-107); Creatinine, Serum 0.68 mg/dL (0.55-1.02); EST Glomerular Filtration Rate 90 mL/min (>60); Est Glom Filt Rate - Afr Amer 108 mL/min (>60); Estimated Creatinine Clearance 75.43 ml/min; Glucose 101 mg/dL (74-106); Potassium 3.6 mmol/L (3.5-5.1); Sodium Level 140 mmol/L (136-145)
[2024-01-15 08:09] VITALS: BP 127/70; PULSE 72; RESP 18; TEMP 36.2; O2SAT 95
[2024-01-15] MEDS: Cefazolin 2 GM in 0.9% Normal Saline (100mL Bag) 100 ML IV (08:23)
[2024-01-15] MEDS: Aspirin 81 MG TAB.CHEW PO (08:36)
[2024-01-15 08:37] VITALS: PULSE 72
[2024-01-15] MEDS: hydroCHLOROthiazide 6.25mg TAB 6.25 MG PO (08:37)
[2024-01-15] MEDS: Metoprolol Tartrate 25 MG Tablet 12.5 MG PO (08:37)
[2024-01-15] MEDS: Lisinopril 10 MG Tablet PO (08:39)
--- NOTE | 2024-01-15 09:08 | DCINST_ITS ---
Discharge Instructions Diet Discharge Diet: No restrictions Activity Discharge Activity: Return to Normal Activity Weight Bearing Status: Full weight bearing Follow Up Care Test Results: Test results from this visit will be discussed in further detail at your follow- up appointment, if applicable. Discharge Plan Admission Admit Date/Time: 01/12/24 17:10 Primary Reason for Your Visit: cellulitis Attending Provider: Quique Miranda Primary Care Provider: Jodie Yanes Consulting Providers: Alphonso Colmenares Discharge Orders/Prescriptions Prescriptions: New cephalexin 500 mg capsule 500 mg PO TID Qty: 21 0RF Continued cholecalciferol (vitamin D3) 125 mcg (5,000 unit) tablet 125 mcg PO DAILY trazodone 50 mg tablet 50 mg PO QHS PRN (Reason: insomnia) aspirin 81 MG tablet,chewable 81 mg PO DAILY@0800 Qty: 90 0RF famotidine [Acid Controller] 20 mg tablet 20 mg PO DAILY PRN (Reason: heartburn) alendronate 35 mg tablet 35 mg PO MO estradiol 0.01 % (0.1 mg/gram) cream 1 g vaginal .COMPLEX Rx Instructions: 1 g vaginal 1gm each night for 2 weeks, then 2x a week; NEEDED Complex B-100 Tablet Extended Release 1 tab PO DAILY psyllium husk [Daily Fiber] 0.52 gram capsule 0.52 g PO DAILY metoprolol tartrate 25 mg tablet 12.5 mg PO BID Qty: 90 3RF atorvastatin 20 mg tablet 20 mg PO QHS Qty: 90 3RF levothyroxine 75 mcg tablet 75 mcg PO DAILY Qty: 90 3RF lisinopril-hydrochlorothiazide 20-12.5 mg tablet 0.5 tab PO DAILY Qty: 90 1RF Referrals / Follow Up: Jodie Yanes MD [Primary Care Provider] - In 1 Week Disposition Disposition (needs filled in before D/C Order can be placed): Home, Self Care
--- NOTE | 2024-01-15 09:12 | PCM.DC.SUM ---
Providers Date of Admission: 01/12/24 Date of Discharge: 01/15/24 Primary Care Physician: Dr. Jodie Yanes MD Consultations 01/13/24 10:06 Consult: Infectious Disease Routine Consulting Provider: Alphonso Colmenares Reason for Consult: Right lower extremity cellulitis EMERGENT Consult: No MD Notified: Yes Date Notified: 01/14/24 Time Notified: 05:07 Method of Notification: Text Reason For Visit: CELLULITIS OF LEG Diagnosis Discharge Diagnosis (1) Sepsis: Status: Acute Code(s): A41.9 - Sepsis, unspecified organism Plan 1. Severe sepsis secondary to right lower leg cellulitis-patient will continue on IV Ancef and vancomycin, continue present antibiotic coverage with adjustments per infectious diseases #2 essential hypertension-patient will remain on her present medications, they will be adjusted if needed #3 hyperlipidemia-patient is on atorvastatin #4 hypothyroidism-patient is on Synthroid Total clinical time spent by myself addressing the patient's medical issues, reviewing all of her data, and collaborating with patient's care team: 35 minutes Medications at Discharge Home Medications aspirin 81 mg chewable tablet 81 mg PO DAILY@0800 ##90 07/26/17 cholecalciferol (vitamin D3) 125 mcg (5,000 unit) tablet 125 mcg PO DAILY 07/04/21 metoprolol tartrate 25 mg tablet 12.5 mg (1/2 x 25 mg) PO BID #90 tabs 04/09/23 atorvastatin 20 mg tablet 20 mg PO QHS #90 tabs 05/13/23 levothyroxine 75 mcg tablet 75 mcg PO DAILY #90 tabs 09/11/23 lisinopril 20 mg-hydrochlorothiazide 12.5 mg tablet 0.5 tab PO DAILY #90 tabs 11/28/23 trazodone 50 mg tablet 50 mg PO QHS PRN insomnia 01/07/24 alendronate 35 mg tablet 35 mg PO MO 01/12/24 estradiol 0.01% (0.1 mg/gram) vaginal cream 1 g vaginal .COMPLEX 01/12/24 famotidine 20 mg tablet (Acid Controller) 20 mg PO DAILY PRN heartburn 01/12/24 psyllium husk 0.52 gram capsule (Daily Fiber) 0.52 g PO DAILY 01/12/24 vitamin B complex (Complex B-100 tablet,extended release) 1 tab PO DAILY 01/12/24 cephalexin 500 mg capsule 500 mg PO TID #21 caps 01/15/24 Hospital Course Operations None Procedures None Summary of Care Provided Minutes Spent on Discharge: 31 Hospital Course: This 73-year-old white female was seen in the emergency room at [facility] with complaints of redness and swelling of her right lower leg. She had a temperature at home of 101.8, labs in the ER showed an elevated white blood cell count of 25.8, creatinine was 1.1 glucose was 121 and lactic acid was 2.2. Patient was given IV vancomycin and IV Zosyn in the emergency room, she was admitted to [place] [address] and placed on IV Ancef and vancomycin, labs were monitored and her white blood cell count normalized. She was seen in consultation by infectious diseases. On 01/15/2024, patient was seen and examined: On examination she appeared in good health and spirits, she does not appear to be in any distress. Vital signs as documented. Skin warm and dry and without overt rashes. Neck without JVD, thyroid appears normal, trachea is midline, neck is supple. Lungs clear, normal air movement was noted. Heart exam notable for regular rhythm, normal sounds and absence of murmurs, rubs or gallops. Abdomen unremarkable and without evidence of organomegaly, masses, or abdominal aortic enlargement, bowel sounds are present in all 4 quadrants, no abdominal tenderness was noted. Extremities there was some moderate edema noted over her right lower leg in the pretibial area along with some redness, no cyanosis was noted, no clubbing was noted. Neuro: Cranial nerves II through XII are grossly intact, no focal motor deficits were noted, sensation to light touch and pinprick is intact, motor exam 5/5 throughout. Psych: Patient is alert and oriented x3, she does not appear anxious or depressed, she does not appear agitated. On 01/15/2024, patient was seen and examined and felt to be in stable condition for discharge home. Weight / BMI Weight Weight: 92.079 kg Body Mass Index (BMI) 30.9 ABG / Lab / Microbiology Data 01/15/24 06:50 01/15/24 06:50 Laboratory: Laboratory Results - last 24 hr 01/15/24 06:50: WBC 10.4, RBC 3.51 L, Hgb 11.2 L, Hct 33.5 L, MCV 95.4, MCH 31.9, MCHC 33.4, RDW Std Deviation 53.0 H, RDW Coeff of Tory 15.1 H, Plt Count 161, MPV 10.1, Immature Gran % (Auto) 0.500, Neut % (Auto) 67.6, Lymph % (Auto) 21.3, [place] % (Auto) 8.8, Eos % (Auto) 1.2, Baso % (Auto) 0.6, Absolute Neuts (auto) 7.0, Absolute Lymphs (auto) 2.21, Nucleated RBC % 0, Sodium 140, Potassium 3.6, Chloride 115 H, Carbon Dioxide 19.0 L, Anion Gap 6, BUN 7, Creatinine 0.68, Estim Creat Clear Calc 75.43, Est GFR (MDRD) Af Amer 108, Est GFR (MDRD) Non-Af 90, BUN/Creatinine Ratio 10.2, Glucose 101, Calcium 8.2 L D/C Instructions Discharge Diet: No restrictions Weight Bearing Status: Full weight bearing Meaningful Use Info Meaningful Use Meaningful Use Diagnoses (Choose all that apply): None applicable Ischemic Stroke Statin Dosing Therapy Reference: STATIN DOSE THERAPY REFERENCE: * Patients > 75 years receive moderate or high dose statin therapy. * Patients 75 years or YOUNGER should receive HIGH intensity statin dose unless contraindicated. You will be required to document reason for non-treatment if statin daily dose does not meet guidelines. HIGH DOSE STATIN THERAPY DAILY Atorvastatin > than or = to 40 mg Rosuvastatin > than or = to 20 mg Amlodipine + Atorvastatin > than or = to 2.5/40 mg Ezetimibe + Simvastatin 10/80 mg Simvastatin 80mg Discharge Plan Admission Admit Date/Time: 01/12/24 17:10 Primary Reason for Your Visit: cellulitis Attending Provider: Quique Miranda Primary Care Provider: Jodie Yanes Consulting Providers: Alphonso Colmenares Discharge Orders/Prescriptions Prescriptions: New cephalexin 500 mg capsule 500 mg PO TID Qty: 21 0RF Continued cholecalciferol (vitamin D3) 125 mcg (5,000 unit) tablet 125 mcg PO DAILY trazodone 50 mg tablet 50 mg PO QHS PRN (Reason: insomnia) aspirin 81 MG tablet,chewable 81 mg PO DAILY@0800 Qty: 90 0RF famotidine [Acid Controller] 20 mg tablet 20 mg PO DAILY PRN (Reason: heartburn) alendronate 35 mg tablet 35 mg PO MO estradiol 0.01 % (0.1 mg/gram) cream 1 g vaginal .COMPLEX Rx Instructions: 1 g vaginal 1gm each night for 2 weeks, then 2x a week; NEEDED Complex B-100 Tablet Extended Release 1 tab PO DAILY psyllium husk [Daily Fiber] 0.52 gram capsule 0.52 g PO DAILY metoprolol tartrate 25 mg tablet 12.5 mg PO BID Qty: 90 3RF atorvastatin 20 mg tablet 20 mg PO QHS Qty: 90 3RF levothyroxine 75 mcg tablet 75 mcg PO DAILY Qty: 90 3RF lisinopril-hydrochlorothiazide 20-12.5 mg tablet 0.5 tab PO DAILY Qty: 90 1RF Referrals / Follow Up: Jodie Yanes MD [Primary Care Provider] - In 1 Week Disposition Disposition (needs filled in before D/C Order can be placed): Home, Self Care Charges/Coding Visit Charges Inpatient E&M: 13661 Disch Hosp >30min
--- NOTE | 2024-01-15 10:10 | PHA.DC_ITS ---
Pharmacy [facility] Service has performed discharge medication reconciliation and counseling for this patient. 1. CEPHALEXIN 500MG PO TID X 7 DAYS The patient's discharge medication list was reviewed for discrepancies and discrepancies were resolved. The patient was counseled on the following discharge medications and changes in medications for homegoing were reviewed. The Reason for Use, instructions for use, and potential side effects were reviewed for all new medications. The patient's questions regarding all of their medications were answered. The patient was able to verbally demonstrate an understanding of their discharge medications. Medications at Discharge Home Medications aspirin 81 mg chewable tablet 81 mg PO DAILY@0800 ##90 07/26/17 cholecalciferol (vitamin D3) 125 mcg (5,000 unit) tablet 125 mcg PO DAILY 07/04/21 metoprolol tartrate 25 mg tablet 12.5 mg (1/2 x 25 mg) PO BID #90 tabs 04/09/23 atorvastatin 20 mg tablet 20 mg PO QHS #90 tabs 05/13/23 levothyroxine 75 mcg tablet 75 mcg PO DAILY #90 tabs 09/11/23 lisinopril 20 mg-hydrochlorothiazide 12.5 mg tablet 0.5 tab PO DAILY #90 tabs 11/28/23 trazodone 50 mg tablet 50 mg PO QHS PRN insomnia 01/07/24 alendronate 35 mg tablet 35 mg PO MO 01/12/24 estradiol 0.01% (0.1 mg/gram) vaginal cream 1 g vaginal .COMPLEX 01/12/24 famotidine 20 mg tablet (Acid Controller) 20 mg PO DAILY PRN heartburn 01/12/24 psyllium husk 0.52 gram capsule (Daily Fiber) 0.52 g PO DAILY 01/12/24 vitamin B complex (Complex B-100 tablet,extended release) 1 tab PO DAILY 01/12/24 cephalexin 500 mg capsule 500 mg PO TID #21 caps 01/15/24
== END 2024-01-15 11:54 | disposition home or self-care (01) | DRG 872 ==
LOC: ED 17:20 → MS3 17:38
PROVIDERS: Physician Assistant; Admitting Provider Internal Medicine; Emergency Provider Student in an Organized Health Care Education/Training Program; PCP Internal Medicine; Visit Provider Internal Medicine
DX: A41.9 Sepsis, unspecified organism (principal); E87.21 Acute metabolic acidosis; L03.115 Cellulitis of right lower limb; R65.20 Severe sepsis without septic shock; E03.9 Hypothyroidism, unspecified; I10 Essential (primary) hypertension; E78.5 Hyperlipidemia, unspecified; I25.10 Atherosclerotic heart disease of native coronary artery without angina pectoris; I25.2 Old myocardial infarction; Z79.82 Long term (current) use of aspirin; Z79.83 Long term (current) use of bisphosphonates; Z79.899 Other long term (current) drug therapy; Z86.73 Personal history of transient ischemic attack (TIA), and cerebral infarction without residual deficits
CPT/HCPCS: 36415; 73590; 80048; 80053; 80202; 83605; 85025; 85652; 86140; 87040; 97802; 99283; A4216

== ENCOUNTER 2024-01-19 18:23 | Inpatient (IN) | payer MEDICARE, OTHER, SELFPAY ==
[2024-01-19] VITALS (9 sets, daily range): BP systolic 125–139; BP diastolic 67–82; PULSE 82–97; RESP 16–20; TEMP 36.9–37.7; O2SAT 92–98; BMI 36.8; BMI 35.9
--- NOTE | 2024-01-19 18:49 | EKG12_ITS ---
Test Reason : FEVER Blood Pressure : / mmHG Vent. Rate : 083 BPM Atrial Rate : 083 BPM P-R Int : 182 ms QRS Dur : 074 ms QT Int : 376 ms P-R-T Axes : 015 -12 028 degrees QTc Int : 441 ms Normal sinus rhythm Inferior infarct (cited on or before 11-SEP-2005) Abnormal ECG Confirmed by ASHOK ALVAREZ, REI ([id number]), slot editor VASILE HENRY ([id number]) on 01/21/2024 2:04:14 PM Referred By: Confirmed By:REI PULIDO MD
--- NOTE | 2024-01-19 18:50 | EX.ED.DYSGE1 ---
HPI History of Present Illness Chief Complaint: Fever Informant: patient Onset/Context/Timing Onset: Today Narrative Narrative: Patient presents secondary to recurrent fever. Patient was hospitalized January 11 through the with right lower extremity cellulitis and sepsis. She was initially treated with Ancef and vancomycin and discharged home on Keflex 3 times daily. Patient states that she had been doing well until today. She took a shower last evening. Her erythema in her leg is significantly improved, but she did note increased swelling last night after being up on her feet. She wrapped a couple Vasu wrap's around her leg to help with swelling. This afternoon she developed a fever. She took Tylenol at 130 this afternoon and due to fever rising she took ibuprofen at 4 PM. She did unwrap her leg but it does not look significantly worse. She still has some mild erythema over the posterior distal leg. No open wounds are appreciated. Patient does report a mild cough. She states that she had been short of breath at the hospital and her weight went up between 20 and 25 pounds. She states she is currently back down to only 10 pounds over her preadmission weight. She does complain of some mild abdominal pain and states her stools are slightly loose but she is not having diarrhea. [facility] Medical History Myocardial infarct Abnormal CT of the abdomen Gallstones Bloating Flu vaccine need Hammer toe Preoperative evaluation to rule out surgical contraindication TIA (transient ischemic attack) Psoriasis Thyroid disease GERD (gastroesophageal reflux disease) Osteopenia Neuropathy Carpal tunnel syndrome Arthritis Atherosclerosis of coronary artery of [place] heart without angina pectoris Non-STEMI (non-ST elevated myocardial infarction) (~07/2017) Hypertension Hyperlipidemia Home Medications ?Medication ?Instructions ?Recorded ?Last Taken ?Type aspirin 81 mg chewable tablet 81 mg PO DAILY@0800 ##90 07/26/17 01/12/24 Rx cholecalciferol (vitamin D3) 125 125 mcg PO DAILY 07/04/21 01/12/24 History mcg (5,000 unit) tablet metoprolol tartrate 25 mg tablet 12.5 mg (1/2 x 25 mg) PO BID #90 04/09/23 01/12/24 Rx tabs atorvastatin 20 mg tablet 20 mg PO QHS #90 tabs 09/25/23 05/25/24 Rx levothyroxine 75 mcg tablet 75 mcg PO DAILY #90 tabs 09/11/23 01/12/24 Rx lisinopril 20 0.5 tab PO DAILY #90 tabs 11/28/23 01/12/24 Rx mg-hydrochlorothiazide 12.5 mg tablet trazodone 50 mg tablet 75 mg PO QHS PRN insomnia 01/07/24 01/11/24 History alendronate 35 mg tablet 35 mg PO MO 01/12/24 01/06/24 History estradiol 0.01% (0.1 mg/gram) 1 g vaginal .COMPLEX 01/12/24 Unknown History vaginal cream famotidine 20 mg tablet (Acid 20 mg PO DAILY PRN heartburn 01/12/24 Unknown History Controller) psyllium husk 0.52 gram capsule 0.52 g PO DAILY 01/12/24 Unknown History (Daily Fiber) vitamin B complex (Complex B-100 1 tab PO DAILY 01/12/24 01/12/24 History tablet,extended release) cephalexin 500 mg capsule 500 mg PO TID #21 caps 01/15/24 Unknown Rx Allergy/AdvReac Type Severity Reaction Status Date / Time Sulfa (Sulfonamide Allergy Rash Verified 01/19/24 18:25 Antibiotics) Family History Brother Alcoholism Myocardial infarction Kidney disease Multiple myeloma Mother Arthritis Blood clot in vein Father Cancer Renal & Skin Kidney disease Surgical History History of left knee replacement History of colonoscopy (07/02/17) History of tubal ligation History of tonsillectomy and adenoidectomy History of hysterectomy History of carpal tunnel surgery of right wrist History of bladder suspension procedure History of foot surgery Social History Smoking Status: Never smoker second hand exposure: No alcohol intake: current alcohol intake frequency: a few times a week Alcohol type: wine substance use type: does not use caffeine: Yes frequency: 3-4 times per week ROS ROS ED Constitutional Constitutional ED: Reports fever(s); Denies chills Eyes Eyes: Denies discharge from eye(s) ENT ENT ED: Denies discharge from eye(s), rhinorrhea or sore throat Cardiovascular Cardiovascular: Denies chest pain or palpitations Respiratory/Chest Respiratory/Chest: Reports cough and dyspnea Gastrointestinal Gastrointestinal: Reports abdominal pain; Denies diarrhea, nausea or vomiting Genitourinary Genitourinary ED: Denies dysuria Musculoskeletal Musculoskeletal: Reports extremity pain; Denies back pain Integumentary Reports rash; Denies Abrasions Neurologic Neurologic: Reports weakness; Denies headache(s) Psychiatric Psychiatric: Denies anxiety or depression Allergic/Immunologic Allergic/Immunologic ED: Denies lip swelling or urticaria EXAM Physical Exam Const Vital Signs: 01/19/24 18:25 01/19/24 18:49 01/19/24 18:49 Temperature 99.3 F H Temperature Source Temporal Pulse Rate 92 Respiratory Rate 18 Respiratory Effort Normal Non-Labored Respiratory Pattern Normal Blood Pressure 139/72 H Blood Pressure Mean 94 Pulse Ox 92 Oxygen Delivery Method Room Air Room Air 01/19/24 18:51 01/19/24 19:23 01/19/24 20:00 Temperature 98.4 F 98.4 F 99.2 F H Temperature Source Oral Oral Oral Pulse Rate 82 82 Respiratory Rate 19 H 20 H Respiratory Effort Respiratory Pattern Blood Pressure 125/70 H 126/71 H Blood Pressure Mean 88 89 Pulse Ox 94 98 Oxygen Delivery Method Room Air Room Air 01/19/24 21:00 01/19/24 22:00 Temperature 99.8 F H 99.7 F H Temperature Source Oral Oral Pulse Rate 95 97 Respiratory Rate 20 H 19 H Respiratory Effort Respiratory Pattern Blood Pressure 130/67 H 133/71 H Blood Pressure Mean 88 91 Pulse Ox 97 95 Oxygen Delivery Method Room Air Room Air Positive well nourished and well developed General Appearance ED: well developed HEENT Reports moist mucous membranes Eyes EOMs intact bilaterally Chest Wall inspection of chest normal and palpation of chest normal Resp normal respiratory effort and clear to auscultation bilaterally Cardio regular rate and regular rhythm GI non-tender Auscultation: normoactive bowel sounds Palpation: soft Extremity Extremity Narrative: Mild edema to the right lower extremity with erythema over the posterior distal leg. No open wounds appreciated. Neuro oriented x3 and no sensory deficits noted Psych mental status grossly normal MDM MDM MDM Narrative Medical decision making narrative: Oral temperature is obtained at the time of my exam and measures 98.5. Patient placed on classroom monitor. IV line initiated. Labwork obtained to evaluate for leukocytosis, anemia, and electrolyte derangement. Blood and urine cultures obtained. Urinalysis obtained to evaluate for infection/hematuria. Swab for COVID, influenza, and RSV will be obtained. Chest x-ray obtained to evaluate for acute lung pathology, cardiac size, or mediastinal abnormality. EKG obtained to evaluate for cardiac arrhythmia/ischemia. History & Record Review Discussion w/independent historian: Patient and Significant other Additional record(s) reviewed:: Prior inpatient record, Prior ED visit and Prior labs Lab Data Attestation: I reviewed the patient's lab results. Labs: Laboratory Results - last 24 hr 01/19/24 19:08 WBC 20.7 H RBC 3.75 L Hgb 12.2 Hct 36.3 L MCV 96.8 MCH 32.5 H MCHC 33.6 RDW Std Deviation 50.0 H RDW Coeff of Tory 14.1 Plt Count 284 MPV 10.2 Immature Gran % (Auto) 1.000 H Neut % (Auto) 89.7 H Lymph % (Auto) 5.2 L [place] % (Auto) 3.6 Eos % (Auto) 0.1 Baso % (Auto) 0.4 Absolute Neuts (auto) 18.6 H Absolute Lymphs (auto) 1.08 Nucleated RBC % 0 PT 12.7 INR 1.0 APTT 28.1 Sodium 135 L Potassium 3.9 Chloride 101 Carbon Dioxide 27.0 Anion Gap 7 BUN 9 Creatinine 0.89 Estim Creat Clear Calc 67.11 Est GFR (MDRD) Af Amer 80 Est GFR (MDRD) Non-Af 66 BUN/Creatinine Ratio 10.1 Glucose 134 H Lactic Acid 0.8 Calcium 9.2 Total Bilirubin 0.80 AST 41 H ALT 69 H Alkaline Phosphatase 130 H Total Protein 6.5 Albumin 2.9 L Globulin 3.6 Albumin/Globulin Ratio 0.8 L Radiography Chest X-Ray - ED: 1 View, Read by ED Physician, Chronic Changes and No Infiltrates Diagnostic Testing: Clinical Impression(s) from Imaging Studies Chest X-Ray 01/19/24 19:26 IMPRESSION: There are no acute findings. Electronically Signed: Julio César Salas MD at 19:40 EDT , Chest CTA 01/19/24 19:46 IMPRESSION: No demonstrated pulmonary embolism or arterial dissection. There are bilateral pleural effusions. Electronically Signed: Julio César Salas MD at 21:55 EDT , Abdomen/Pelvis CT 01/19/24 19:47 IMPRESSION: (NOT LISTED IN ORDER OF SIGNIFICANCE) Proximal colitis. Moderate right pleural effusion. Small left pleural effusion. There are multiple gallstones. Other findings as above. Electronically Signed: Julio César Salas MD at 21:57 EDT , EKG Initial EKG: Attestation: I personally reviewed and interpreted this EKG as follows: Interpretation: Sinus Rhythm (Sinus at 83 with no acute ischemia.) Treatment and Re-Evaluation :: CBC reveals white count elevated back up to 20.7 with 89% neutrophils. Hemoglobin is 12.2. Coags unremarkable. Chemistry studies are unremarkable with normal renal function. AST is 41 which is slightly improved when compared to prior labs. ALT is 69 and alk phos is 130, both slightly elevated when compared to prior labs. Lactic acid is normal at 0.8. Portable chest x-ray per my interpretation reveals no focal infiltrate with chronic changes appreciated. Radiology interpretation reviewed and agrees. Swab for COVID, influenza, and RSV is negative. With significantly elevated white count again and right leg not looking significantly worsened, I began looking for other sources of infection. A CTA of the chest is obtained that reveals small pleural effusions with no evidence of infiltrate. No evidence of PE. Abdominal CT scan reveals proximal colitis. Multiple gallstones are noted. Patient does report her stools are softer and slightly more loose than normal. I did order stool studies for potential C. difficile given her findings of colitis and recent antibiotic use. I will speak with hospitalist regarding which antibiotics they would like her initiated on at this time. Patient's temperature was started to rise again up to 99.7 and she was given a dose of Tylenol. Discharge Plan Triage Chief Complaint: Fever ED Provider: Maryan Moya Dx/Rx/DC Orders Clinical Impression: Colitis, Leukocytosis, Fever Prescriptions: No Action cholecalciferol (vitamin D3) 125 mcg (5,000 unit) tablet 125 mcg PO DAILY trazodone 50 mg tablet 75 mg PO QHS PRN (Reason: insomnia) aspirin 81 MG tablet,chewable 81 mg PO DAILY@0800 Qty: 90 0RF famotidine [Acid Controller] 20 mg tablet 20 mg PO DAILY PRN (Reason: heartburn) alendronate 35 mg tablet 35 mg PO MO estradiol 0.01 % (0.1 mg/gram) cream 1 g vaginal .COMPLEX Rx Instructions: 1 g vaginal 1gm each night for 2 weeks, then 2x a week; NEEDED Complex B-100 Tablet Extended Release 1 tab PO DAILY psyllium husk [Daily Fiber] 0.52 gram capsule 0.52 g PO DAILY cephalexin 500 mg capsule 500 mg PO TID Qty: 21 0RF metoprolol tartrate 25 mg tablet 12.5 mg PO BID Qty: 90 3RF atorvastatin 20 mg tablet 20 mg PO QHS Qty: 90 3RF levothyroxine 75 mcg tablet 75 mcg PO DAILY Qty: 90 3RF lisinopril-hydrochlorothiazide 20-12.5 mg tablet 0.5 tab PO DAILY Qty: 90 1RF Primary Care Provider: Jodie Yanes Referrals: Jodie Yanes MD [Primary Care Provider] - Print Language: Ghanaian Disposition Disposition: Acute Care Hospital [facility]
--- NOTE | 2024-01-19 19:26 | RAD_ITS ---
STUDY: XR Chest 1 View 01/19/2024 7:24 PM REASON FOR EXAM: Female, 73 years old. cough COMPARISON: 01/04/2021 TECHNIQUE: XR Chest 1 View FINDINGS: There is no demonstrated pleural abnormality. Normal heart size. Normal mediastinum. Normal carlos. Prominent appearing increased interstitial lung markings. Normal visualized pulmonary arteries. There is atherosclerotic calcification of the aortic arch with tortuosity. There are diffuse degenerative changes of the visualized thoracic spine. There is degenerative osteoarthritis of the bilateral shoulders. There are no acute findings of the upper abdomen. RAD/Chest 1 View (Portable) IMPRESSION: There are no acute findings. Electronically Signed: Julio César Salas MD at 19:40 EDT ,
[2024-01-19 19:28] LABS: Absolute Lymphocyte Count 1.08 X10^3/uL (0.83-4.51); Absolute Neutrophil Count 18.6 X10^3/uL (2.0-7.7); Basophil# 0.08 X10^3/uL; Basophil% 0.4 % (0-1); Eosinophil# 0.03 X10^3/uL; Eosinophils% 0.1 % (0-5); Hematocrit 36.3 % (37-47); Hemoglobin 12.2 g/dL (12.0-15.0); Lymphocyte # 1.08 X10^3/ul (0.83-4.51); Lymphocyte % 5.2 % (19-41); Mean Corp Hgb Conc 33.6 g/dL (32-36); Mean Corpuscular Hgb 32.5 pg (27.0-32.0); Mean Corpuscular Volume 96.8 fL (81-99); Mean Platelet Vol. 10.2 fl (6.2-12.0); Monocyte# 0.75 X10^3/uL; Monocyte% 3.6 % (0-10); NRBC Flagged by Analyzer 0 % (0-5); Neutrophil # 18.59 X10^3/uL (2.7-7.7); Neutrophil % 89.7 % (47-70); Platelet Count 284 K/mm3 (150-450); RBC Distribution Width CV 14.1 % (11.6-14.6); Red Blood Count 3.75 M/mm3 (4.2-5.4); White Blood Count 20.7 K/mm3 (4.4-11.0)
[2024-01-19 19:33] LABS: Partial Thromboplast Time 28.1 Seconds (24.1-36.2); Prothrombin Time (Protime)PT. 12.7 SECONDS (11.7-14.9)
[2024-01-19 19:40] LABS: ALB/GLOB Ratio 0.8 RATIO (0.9-2.4); AST(SGOT) 41 U/L (15-37); Alanine Aminotransfer ALT/SGPT 69 U/L (13-56); Albumin, Serum 2.9 g/dL (3.2-5.0); Alkaline Phosphatase 130 U/L (45-117); Anion Gap 7 (5-15); BUN 9 mg/dL (7-18); BUN/Creat Ratio 10.1 RATIO (10-20); Calcium,Total 9.2 mg/dL (8.5-10.1); Chloride 101 mmol/L (98-107); Creatinine, Serum 0.89 mg/dL (0.55-1.02); EST Glomerular Filtration Rate 66 mL/min (>60); Est Glom Filt Rate - Afr Amer 80 mL/min (>60); Estimated Creatinine Clearance 67.11 ml/min; Globulin 3.6 g/dL (2.2-4.2); Glucose 134 mg/dL (74-106); Potassium 3.9 mmol/L (3.5-5.1); Protein, Total 6.5 g/dL (6.4-8.2); Sodium Level 135 mmol/L (136-145)
[2024-01-19 19:41] LABS: Lactic Acid 0.8 mmol/L (0.4-1.9)
--- NOTE | 2024-01-19 19:46 | CT_ITS ---
STUDY: CTA Chest WO/W Contrast Injection 01/19/2024 9:52 PM REASON FOR EXAM: Female, 73 years old. fever, sob TECHNIQUE: The examination was performed with the intravenous administration of IV 100mL Isovue-370 contrast material. Post-processing of the angiographic images was performed, with axial imaging and 3D reconstruction. MIPS images were obtained. Individualized dose optimization techniques were used for this CT. COMPARISON: 07.24.17 FINDINGS: There are degenerative changes of the shoulders. There is no pneumothorax. Moderate right pleural effusion. Small left pleural effusion. There are calcifications of the coronary arteries. Normal mediastinum. Normal hilar regions. Normal pulmonary arteries. There is atherosclerotic calcification of the aortic arch with tortuosity and elongation of the aortic arch and descending thoracic aorta. There are multi-level degenerative changes of the thoracic spine. There is a small hiatal hernia. CT/CTA Chest W/WO Contrast IMPRESSION: No demonstrated pulmonary embolism or arterial dissection. There are bilateral pleural effusions. Electronically Signed: Julio César Salas MD at 21:55 EDT ,
--- NOTE | 2024-01-19 19:47 | CT_ITS ---
STUDY: CT Abdomen And Pelvis W/ Contrast Injection 01/19/2024 9:54 PM REASON FOR EXAM: Female, 73 years old. Abdominal pain fever, abd pain Individualized dose optimization techniques were used for this CT. COMPARISON: None. TECHNIQUE: CT Abdomen And Pelvis W/ Contrast Injection IV 100mL Isovue-370 FINDINGS: There are atherosclerotic calcifications of visualized coronary arteries. Moderate right pleural effusion. Small left pleural effusion. Normal liver. There are multiple gallstones. Normal spleen. Normal pancreas. Normal bilateral adrenal glands. There are hypodensities in the right kidney. These are consistent for cysts. No follow up required. No acute findings of the left kidney. Normal visualized stomach. Normal small intestine. There are multiple colonic diverticula consistent with diverticulosis. Wall thickening and inflammation of the cecum and ascending colon suggesting colitis. The appendix is visualized and appears normal. There are calcifications of the abdominal aorta. This is consistent for atherosclerotic disease. There is NO abdominal aortic aneurysm. Vascular workup can be obtained based on clinical correlation. Normal inferior vena cava. Subcentimeter mesenteric lymph nodes. Normal urinary bladder. There is absence of the uterus consistent with a prior hysterectomy. There is an umbilical hernia containing fat. There are diffuse degenerative changes of the visualized lumbar spine. There is bilateral neural foraminal stenosis at L4-5 and L5-S1. CT/Abdomen/Pelvis W IV Cont ONLY IMPRESSION: (NOT LISTED IN ORDER OF SIGNIFICANCE) Proximal colitis. Moderate right pleural effusion. Small left pleural effusion. There are multiple gallstones. Other findings as above. Electronically Signed: Julio César Salas MD at 21:57 EDT ,
[2024-01-19] MEDS: Acetaminophen 500 MG Tablet 1000 MG PO (20:33)
[2024-01-19 22:13] LABS: Bacteria 0 SEEN /hpf (None Seen); Mucous, Urine 0 SEEN /hpf (<or=2+); Red Blood Cells-Urine 0 SEEN /hpf (0-5); White Blood Cells 0 SEEN /hpf (0-5)
--- NOTE | 2024-01-19 22:21 | PCM.HP.STD ---
HPI - General General Date of Admission: 01/19/24 Date of Service: 01/19/24 Chief Complaint: Fever, still mild redness RLE, abdominal discomfort/mildly loose stools, weight gain/dyspnea. HPI Narrative The patient is a 73 y/o F w/ PMHx: Obesity, GERD, HTN, HLD, Chronic anemia, Hx TIA, Psoriasis, Hx NSTEMI, Known trivial PFO, recent 01/15/2024 discharge following evaluation and treatment of severe sepsis secondary to right lower extremity cellulitis with history of prior right total knee replacement and hardware in the right foot, initially administered IV Ancef and vancomycin with infectious disease following transitioned at discharge to oral cephalexin with plan 500 mg p.o. 3 times daily for an additional 21 doses who now represents to the [facility] ED on 01/19/2024 with onset of recurrent fever reportedly doing well since her discharge until day of presentation with initially her erythema significantly improved but overnight she had increased swelling starting in her foot prompting her to use an Vasu wrap to wrap around her leg to assist with the swelling within onset of fever with self administration at 1:30 in the afternoon of Tylenol however continued to rise prompting ibuprofen administration at 4 PM with no worsening appearance of the leg but still some mild distal posterior leg erythema with no wounds however she does report that she has had a mild cough and she has been short of breath especially since her discharge with her weight reportedly increased by 20 to 25 pounds during that admission but she states that now she is back down to only 10 pounds over her preadmission weight with mild abdominal discomfort and stools slightly loose but not diarrhea consistent prompting ED return. From review of weights upon admission recently patient 01/12/2024 weight reported as 209 pounds and 14 ounces, currently upon presentation weight now 221 pound 9 ounces. From review of records during recent admission blood cultures with no growth and no previous wound cultures noted. Workup in the ED included T99.3, heart rate 92, BP 139/72, respiratory rate 18, 92% on room air with most recent repeat vital signs T98.4, heart 82, BP 125/70, respiratory rate 19, 94% on room air, CBC with WBC 20.7, hemoglobin 12.2, MCV 96.8, platelet 284 with left shift, unremarkable coags, CMP with sodium 135, glucose 134, AST/ALT 41/69, alk phos 130, lactic acid 0.8, chest x-ray with no acute cardiopulmonary findings, blood culture pending per ED, rapid SARS COVID/influenza/RSV negative, CT abdomen and pelvis with proximal colitis with noted wall thickening and inflammation of the cecum and ascending colon, moderate pleural effusion, small left pleural effusion, multiple gallstones, CTPA with no demonstrated PE or dissection, bilateral pleural effusion, EKG with SR without no acute evidence of ischemia. In the ED patient administered tylenol and IV zosyn. 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 Non-STEMI (non-ST elevated myocardial infarction) (~07/2017) Hypertension Hyperlipidemia Home Medications ?Medication ?Instructions ?Recorded ?Last Taken ?Type aspirin 81 mg chewable tablet 81 mg PO DAILY@0800 ##90 07/26/17 01/12/24 Rx cholecalciferol (vitamin D3) 125 125 mcg PO DAILY 07/04/21 01/12/24 History mcg (5,000 unit) tablet metoprolol tartrate 25 mg tablet 12.5 mg (1/2 x 25 mg) PO BID #90 04/09/23 01/12/24 Rx tabs atorvastatin 20 mg tablet 20 mg PO QHS #90 tabs 05/13/23 01/11/24 Rx levothyroxine 75 mcg tablet 75 mcg PO DAILY #90 tabs 09/11/23 01/12/24 Rx lisinopril 20 0.5 tab PO DAILY #90 tabs 11/28/23 01/12/24 Rx mg-hydrochlorothiazide 12.5 mg tablet trazodone 50 mg tablet 75 mg PO QHS PRN insomnia 01/07/24 01/11/24 History alendronate 35 mg tablet 35 mg PO MO 01/12/24 01/06/24 History estradiol 0.01% (0.1 mg/gram) 1 g vaginal .COMPLEX 01/12/24 Unknown History vaginal cream famotidine 20 mg tablet (Acid 20 mg PO DAILY PRN heartburn 01/12/24 Unknown History Controller) psyllium husk 0.52 gram capsule 0.52 g PO DAILY 01/12/24 Unknown History (Daily Fiber) vitamin B complex (Complex B-100 1 tab PO DAILY 01/12/24 01/12/24 History tablet,extended release) cephalexin 500 mg capsule 500 mg PO TID #21 caps 01/15/24 Unknown Rx Allergy/AdvReac Type Severity Reaction Status Date / Time Sulfa (Sulfonamide Allergy Rash Verified 01/19/24 18:25 Antibiotics) Family History Brother Alcoholism Myocardial infarction Kidney disease Multiple myeloma Mother Arthritis Blood clot in vein Father Cancer Renal & Skin Kidney disease Surgical History History of left knee replacement History of colonoscopy (07/02/17) History of tubal ligation History of tonsillectomy and adenoidectomy History of hysterectomy History of carpal tunnel surgery of right wrist History of bladder suspension procedure History of foot surgery Social History (Updated 01/19/24 @ 22:[address] Liliya Ballard MD) household members: spouse Smoking Status: Never smoker second hand exposure: No alcohol intake: current alcohol intake frequency: a few times a week Alcohol type: wine substance use type: does not use caffeine: Yes frequency: 3-4 times per week ROS ROS Narrative Admission Review of Systems: CONSTITUTIONAL: No weight loss, chills, + fever, weakness or fatigue. HEENT: Eyes: No visual loss, blurred vision, double vision or yellow sclerae. Ears, Nose, Throat: No hearing loss, sneezing, congestion, runny nose or sore throat. SKIN: No rash or itching, lesions, wounds except + RLE with decreased erythema, still receding, still increased warmth to the right lower extremity compared to left. CARDIOVASCULAR: + Increased edema, weight gain. No chest pain, chest pressure or chest discomfort, palpitations, orthopnea, syncopal events. RESPIRATORY: + Mild dyspnea, cough. No marked wheezing, hemoptysis. GASTROINTESTINAL:+ Mild anorexia, nausea without vomiting, mild abdominal discomfort, loose stools. No melena, BRBPR. GENITOURINARY: No dysuria, frequency, urgency or retention. NEUROLOGICAL: No headache, dizziness, syncope, paralysis, ataxia, numbness or tingling in the extremities, focal weakness, change in bowel or bladder control, seizure. MUSCULOSKELETAL: + muscle, back pain, joint pain or stiffness. HEMATOLOGIC: + Chronic anemia, easy bleeding/bruising. LYMPHATICS: No enlarged nodes. No history of splenectomy. PSYCHIATRIC: + Chronic insomnia. ENDOCRINOLOGIC: No reports of sweating, cold or heat intolerance. No polyuria or polydipsia. ALLERGIES: No history of asthma, hives, eczema or rhinitis. Vital Signs Vital Signs Vital Signs: 01/19/24 18:25 01/19/24 18:49 01/19/24 18:49 Temperature 99.3 F H Temperature Source Temporal Pulse Rate 92 Respiratory Rate 18 Respiratory Effort Normal Non-Labored Respiratory Pattern Normal Blood Pressure 139/72 H Blood Pressure Mean 94 Pulse Ox 92 Oxygen Delivery Method Room Air Room Air 01/19/24 18:51 01/19/24 19:23 01/19/24 20:00 Temperature 98.4 F 98.4 F 99.2 F H Temperature Source Oral Oral Oral Pulse Rate 82 82 Respiratory Rate 19 H 20 H Respiratory Effort Respiratory Pattern Blood Pressure 125/70 H 126/71 H Blood Pressure Mean 88 89 Pulse Ox 94 98 Oxygen Delivery Method Room Air Room Air 01/19/24 21:00 01/19/24 22:00 Temperature 99.8 F H 99.7 F H Temperature Source Oral Oral Pulse Rate 95 97 Respiratory Rate 20 H 19 H Respiratory Effort Respiratory Pattern Blood Pressure 130/67 H 133/71 H Blood Pressure Mean 88 91 Pulse Ox 97 95 Oxygen Delivery Method Room Air Room Air Weight Weight: 221 lb 9.033 oz Body Mass Index (BMI) 36.8 Physical Exam Narrative Physical Examination: General: Awake, alert, oriented x 3 and cooperative, seated upright in the ED bed, fatigued, no acute distress. Skin: Normal color, normal turgor, no icterus, no cyanosis except right lower extremity with receded erythema from previous line made during prior admission, still increased warmth compared to left lower extremity as well as bilateral lower extremity pedal to proximal pereira 1-2+ pitting edema. HEENT: AT/NC, EOMI, PERRLA, MMM, no carotid bruits, difficult to discern JVD given thick and neck. Lungs: Diminished, greater bases, appropriate effort, no evidence of any distress, no appreciated rales, ronchi or wheezing. Heart: Regular rate and rhythm; no gallop, rub audible. Abdomen: Soft, obese, mild generalized discomfort with palpation but no rebound or guarding, mildly distended with some tympany, hyperactive BS, difficult to appreciate any HSM given habitus. Extremities: No cyanosis, no clubbing, see skin. Neurological: Patient awake, alert, oriented as noted, cognitive function intact; pupils equally reactive to light and accommodation, cranial nerves grossly normal, moving all 4 extremities, no focal deficits, strength moderately to severely global decreased secondary to acute complaints Psychiatric: Affect appears fatigued, no acute evidence of depressive or anxiety feelings. Results Lab / Micro Data 01/19/24 19:08 01/19/24 19:08 Labs: Laboratory Results - last 24 hr 01/19/24 19:08: WBC 20.7 H, RBC 3.75 L, Hgb 12.2, Hct 36.3 L, MCV 96.8, MCH 32.5 H, MCHC 33.6, RDW Std Deviation 50.0 H, RDW Coeff of Tory 14.1, Plt Count 284, MPV 10.2, Immature Gran % (Auto) 1.000 H, Neut % (Auto) 89.7 H, Lymph % (Auto) 5.2 L, Mccormick % (Auto) 3.6, Eos % (Auto) 0.1, Baso % (Auto) 0.4, Absolute Neuts (auto) 18.6 H, Absolute Lymphs (auto) 1.08, Nucleated RBC % 0, PT 12.7, INR 1.0, APTT 28.1, Sodium 135 L, Potassium 3.9, Chloride 101, Carbon Dioxide 27.0, Anion Gap 7, BUN 9, Creatinine 0.89, Estim Creat Clear Calc 67.11, Est GFR (MDRD) Af Amer 80, Est GFR (MDRD) Non-Af 66, BUN/Creatinine Ratio 10.1, Glucose 134 H, Lactic Acid 0.8, Calcium 9.2, Total Bilirubin 0.80, AST 41 H, ALT 69 H, Alkaline Phosphatase 130 H, Total Protein 6.5, Albumin 2.9 L, Globulin 3.6, Albumin/Globulin Ratio 0.8 L Micro: Microbiology 01/19/24 19:30 Mucosa - Nose SARS-CoV-2, Influenza & RSV (PCR) - Final Imaging Radiology Impression Chest X-Ray 01/19/24 19:26 IMPRESSION: There are no acute findings. Electronically Signed: Julio César Salas MD at 19:40 EDT , Chest CTA 01/19/24 19:46 IMPRESSION: No demonstrated pulmonary embolism or arterial dissection. There are bilateral pleural effusions. Electronically Signed: Julio César Salas MD at 21:55 EDT , Abdomen/Pelvis CT 01/19/24 19:47 IMPRESSION: (NOT LISTED IN ORDER OF SIGNIFICANCE) Proximal colitis. Moderate right pleural effusion. Small left pleural effusion. There are multiple gallstones. Other findings as above. Electronically Signed: Julio César Salas MD at 21:57 EDT , Assessment & Plan Assessment/Plan (1) Fever: PLAN: Plan The patient is a 73 y/o F w/ PMHx: Obesity, GERD, HTN, HLD, Chronic anemia, Hx TIA, Psoriasis, Hx NSTEMI, Known trivial PFO, recent 01/15/2024 discharge following evaluation and treatment of severe sepsis secondary to right lower extremity cellulitis with history of prior right total knee replacement and hardware in the right foot, initially administered IV Ancef and vancomycin with infectious disease following transitioned at discharge to oral cephalexin with plan 500 mg p.o. 3 times daily for an additional 21 doses who now represents to the [facility] ED on 01/19/2024 with onset of recurrent fever reportedly doing well since her discharge until day of presentation with initially her erythema significantly improved but overnight she had increased swelling starting in her foot prompting her to use an Vasu wrap to wrap around her leg to assist with the swelling within onset of fever with self administration at 1:30 in the afternoon of Tylenol however continued to rise prompting ibuprofen administration at 4 PM with no worsening appearance of the leg but still some mild distal posterior leg erythema with no wounds however she does report that she has had a mild cough and she has been short of breath especially since her discharge with her weight reportedly increased by 20 to 25 pounds during that admission but she states that now she is back down to only 10 pounds over her preadmission weight with mild abdominal discomfort and stools slightly loose but not diarrhea consistent prompting ED return. #1. Right lower extremity improved but persistent cellulitis with new onset fever transition recently from IV to oral antibiotic therapy with leukocytosis likely in part secondary to ongoing cellulitis but also #2: Will admit to PCU given #2, maintain on IV Zosyn given concurrent #2 as noted below, will reconsult infectious disease given return, continue affected extremity elevation above heart when seated and in bed, monitor erythema outline with VS checks, will request right lower extremity duplex US to assure no DVT concurrently. Will continue treatment as noted additionally #2 and #3. #2. Acute proximal colitis: CT A/P w/ evidence of proximal colitis with noted wall thickening inflammation of the cecum and ascending colon. Given recent significant weight gain with concern for possible mild decompensated HF will hold on any aggressive fluid administration, monitor I&Os, maintain NPO status w/ bowel rest, maintain on IV Zosyn, IV PPI, anti-emetics, pain regimen PRN. Will obtain also c-diff and enteric to be cautious. #3. Suspected Mild Acute Decompensated Diastolic CHF with known diastolic dysfunction: CXR obtained in the ED w/ no acute findings however patient with significant weight gain during previous admission. Will obtain BNP. Will maintain on cardiac telemetry, obtain cardiac enzyme series, obtain serial EKGs. Will pulse dose with IV Lasix x 1 as want to avoid any aggressive diuresis given bowel rest with #2. Will continue to monitor I/Os, continue medical therapy w/ asa, statin, BB, ACEI. Will obtain TSH and magnesium level. 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 Will place neck Vasu wraps. As noted also assessing for right lower extremity DVT with duplex requested and pending. #4. Hx NSTEMI: s/p NSTEMI 07/2017, diagnostic heart catheterization it was noted that she had no significant coronary artery disease, felt likely secondary to vasospasm, will continue asa, statin, metoprolol, lisinopril home regimen. 02/28/2022 Stress tesing unremarkable. 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 #5. History of TIA: Will continue aspirin, statin, hypertensive regimen as noted, no diabetic history reported. #6. Chronic normocytic anemia: Admission hemoglobin 12.2, MCV 96.8, baseline noted prior during admission primarily 10-11, stable, continue to trend. #7. Hypertension: Continue home regimen including metoprolol, lisinopril, hydrochlorothiazide, IV lasix x 1 pulse dose as noted, PRN hydralazine. #8. Hyperlipidemia: We will continue patient on statin therapy. FLP in AM. #9. Hypothyroidism: We will continue patient on levothyroxine regimen. TSH pending. #10. GERD: We will continue patient on famotidine regimen. #11. Obesity: Weight loss and lifestyle changes encouraged. #12. DVT prophylaxis: Lovenox. #13. CODE status: Patient clinical decision maker is her who is present. Discussed CODE status at length including difference between FULL code, DNR-CCA and DNR-CC status. Following discussions about the differences in these status, requested Full Code status. Charges/Coding Visit Charges Inpatient E&M: 21981 Init Hosp L3
[2024-01-19 22:28] LABS: Color, Urine Yellow (Yellow); Glucose, Dipstick Normal (Normal); Ketone-Dipstick Negative (Negative); Leukocyte Esterase-Dipstick Negative /ul (Negative); Nitrite-Dipstick Negative (Negative); Occult Blood-Urine Negative /ul (Negative); Protein-Dipstick Negative (Negative); Specific Gravity, Urine 1.005 (1.002-1.030); Urine Bilirubin Dipstick Negative (Negative); Urine Clarity Clear (Clear); Urine Urobilinogen Normal (Normal)
--- NOTE | 2024-01-19 22:30 | VDLE_ITS ---
Reason For Study: Swelling RLE RIGHT LEFT GSV is normal. CFV is compressible, spontaneous, phasic, CFV is compressible, spontaneous, phasic, competent, and demonstrates normal competent and demonstrates normal augmentation. augmentation. FV is compressible, spontaneous, phasic, competent and demonstrates normal augmentation. POP V is compressible, spontaneous, phasic, competent and demonstrates normal augmentation. T/P Trunk is compressible. PTV is compressible. RT PerV is compressible. Procedure This is a venous duplex using B-mode, color flow and spectral Doppler. Exam performed portable in patient room. A preliminary report was called and/or faxed to Arlene GORMAN. VL/Venous Duplex US, Unilateral Interpretation Summary Deep veins of the right lower extremity are patent and compressible segmentally . There is no evidence of right lower extremity deep vein thrombosis. The right great sapheno us vein appears patent and compressible segmentally. Ordering Physician: Liliya Ballard Referring Physician: Jodie Yanes Performed By: Arlene Alicea, LORENA, RVT
[2024-01-19] MEDS: Piperacil/Tazobactam 3.375 GM in 0.9% Normal Saline (50mL MB+) 50 ML IV (22:42)
[2024-01-19 22:48] LABS: Magnesium 1.6 mg/dL (1.6-2.6)
[2024-01-19 22:52] LABS: Squamous Epithelial Cells - UA 0-5 SEEN /hpf (5-10)
--- NOTE | 2024-01-19 23:00 | ECHOD_ITS ---
Reason For Study: HF Procedure This was a 2D Doppler, Color Flow transthoracic echocardiogram. Exam performed in department. Left Ventricle Normal LV size. Left ventricular systolic function is normal. The estimated ejection fraction is 65 %. Stage 1 diastolic dysfunction. No regional wall motion abnormalities noted. Right Ventricle Normal RV size. Normal systolic function. Atria The left atrium is mildly enlarged. Normal right atrium. Mitral Valve Moderate focal mitral valve calcification of the anterior leaflet. Calcified mass 1.1 by 0.4 cm attached to Anterior mitral valve leaflet. Tricuspid Valve Normal tricuspid valve. Mild (1+) tricuspid valve insufficiency. Pulmonary artery systolic pressure is 26 mmHg. Pulmonic Valve Normal pulmonic valve. Great Vessels Normal aortic root. The pulmonary artery is normal size. Normal inferior vena cava. Pericardium/Pleural No pericardial effusion. MMode/2D Measurements & Calculations RVDd: 3.4 cm LVOT diam: 2.1 cm LAV(MOD-bp): 75.0 ml LVOT area: 3.5 cm2 LAV(MOD-bp) Indexed: 36.7 ml/m2 LAV(MOD-sp2): 74.3 ml LAV(MOD-sp4): 76.0 ml LVAd ap4: 26.4 cm2 SV(MOD-sp4): 45.8 ml SV(sp4-el): 49.0 ml LVLd ap4: 8.0 cm EDV(MOD-sp4): 71.0 ml EDV(sp4-el): 74.1 ml LVAs ap4: 13.5 cm2 LVLs ap4: 6.2 cm ESV(MOD-sp4): 25.2 ml ESV(sp4-el): 25.1 ml EF(MOD-sp4): 64.5 % EF(sp4-el): 66.1 % LA A4 area: 24.5 cm2 RA A4 area: 20.2 cm2 TAPSE: 2.1 cm Time Measurements MV dec time: 0.21 sec Doppler Measurements & Calculations MV E max ezio: 96.6 cm/sec Lat Peak E' Ezio: 11.3 cm/sec Med Peak E' Ezio: 8.6 cm/sec MV A max ezio: 99.6 cm/sec E/E' lat: 8.5 E/E' med: 11.2 MV E/A: 0.97 MV V2 max: 95.7 cm/sec Ao V2 max: 167.2 cm/sec MV max P.7 mmHg MV dec slope: 470.5 cm/sec2 Ao max P.2 mmHg MV V2 mean: 57.0 cm/sec Ao V2 mean: 116.0 cm/sec MV mean P.5 mmHg Ao mean P.3 mmHg MV V2 VTI: 25.4 cm Ao V2 VTI: 34.6 cm AV (velocity ratio): 0.71 MVA(VTI): 3.5 cm2 CHELY(I,D): 2.5 cm2 CHELY(V,D): 2.8 cm2 LV V1 max: 129.7 cm/sec SV(LVOT): 87.6 ml PA V2 max: 90.0 cm/sec LV V1 max P.7 mmHg PA max PG (full): 0.20 mmHg LV V1 mean P.0 mmHg PA V2 mean: 69.3 cm/sec LV V1 mean: 95.5 cm/sec LV V1 VTI: 24.7 cm TR max ezio: 240.6 cm/sec TR max P.2 mmHg ECHO/Echo Complete Interpretation Summary Normal LV size. Left ventricular systolic function is normal. The estimated ejection fraction is 65 %. Stage 1 diastolic dysfunction. Moderate focal mitral valve calcification of the anterior leaflet. Calcified mass 1.1 by 0.4 cm attached to Anterior mitral valve leaflet Pulmonary artery systolic pressure is 26 mmHg. Ordering Physician: Liliya Ballard Referring Physician: ABRAN LUONG Performed By: Olimpia Holly and Student
[2024-01-19] MEDS: Furosemide 40 MG/4 ML Vial IV (23:26)
[2024-01-19] MEDS: 0.9% Saline Lock 10 ML Syringe IV (23:26)
[2024-01-19] MEDS: Pantoprazole Sodium 40 MG in 0.9% Normal Saline (100mL MB+) 100 ML 330 MG IV (23:26)
[2024-01-20 00:29] LABS: Troponin-I HS 39 pg/mL (3.0-54.0)
[2024-01-20 01:17] LABS: BNP,B-Type NATRIURETIC PEPTIDE 195.7 pg/mL (0-100)
[2024-01-20 02:01] LABS: Troponin-I HS 36 pg/mL (3.0-54.0)
[2024-01-20] MEDS: Levothyroxine 75 MCG Tablet PO (02:57)
[2024-01-20 03:40] VITALS: BP 103/57; PULSE 90; RESP 18; TEMP 36.9; O2SAT 94
[2024-01-20] MEDS: Piperacil/Tazobactam 3.375 GM in 0.9% Normal Saline (50mL MB+) 50 ML IV (05:09)
[2024-01-20 06:01] LABS: Absolute Lymphocyte Count 1.07 X10^3/uL (0.83-4.51); Absolute Neutrophil Count 33.9 X10^3/uL (2.0-7.7); Basophil# 0.05 X10^3/uL; Basophil% 0.1 % (0-1); Hematocrit 38.7 % (37-47); Hemoglobin 13.1 g/dL (12.0-15.0); Lymphocyte # 1.07 X10^3/ul (0.83-4.51); Lymphocyte % 2.9 % (19-41); Mean Corp Hgb Conc 33.9 g/dL (32-36); Mean Corpuscular Hgb 32.5 pg (27.0-32.0); Mean Platelet Vol. 10.1 fl (6.2-12.0); Monocyte# 1.45 X10^3/uL; Monocyte% 3.9 % (0-10); NRBC Flagged by Analyzer 0.1 % (0-5); Neutrophil # 33.91 X10^3/uL (2.7-7.7); Neutrophil % 91.8 % (47-70); POSITIVE COUNT YES; POSITIVE DIFFERENTIAL YES; POSITIVE MORPHOLOGY YES; Platelet Count 294 K/mm3 (150-450); RBC Distribution Width CV 14.4 % (11.6-14.6); RBC Distribution Width SD 49.9 fl (35.1-43.9); Red Blood Count 4.03 M/mm3 (4.2-5.4)
[2024-01-20 06:17] LABS: ALB/GLOB Ratio 0.7 RATIO (0.9-2.4); AST(SGOT) 28 U/L (15-37); Alanine Aminotransfer ALT/SGPT 56 U/L (13-56); Albumin, Serum 2.7 g/dL (3.2-5.0); Alkaline Phosphatase 124 U/L (45-117); Anion Gap 11 (5-15); BUN 10 mg/dL (7-18); BUN/Creat Ratio 10.2 RATIO (10-20); Calcium,Total 9.1 mg/dL (8.5-10.1); Chloride 100 mmol/L (98-107); Cholesterol 133 mg/dL (200); Creatinine, Serum 0.98 mg/dL (0.55-1.02); EST Glomerular Filtration Rate 59 mL/min (>60); Est Glom Filt Rate - Afr Amer 71 mL/min (>60); Estimated Creatinine Clearance 60.16 ml/min; Globulin 3.8 g/dL (2.2-4.2); Glucose 109 mg/dL (74-106); High Density Lipoprotein 42 mg/dL; Potassium 3.4 mmol/L (3.5-5.1); Protein, Total 6.5 g/dL (6.4-8.2); Sodium Level 136 mmol/L (136-145); Triglycerides 69 mg/dL; Troponin-I HS 29 pg/mL (3.0-54.0); Very Low Density Lipoprotein 14 mg/dL (5-40)
[2024-01-20 06:40] LABS: Differential Indicated SCAN CRITERIA MET
[2024-01-20 07:59] VITALS: O2SAT 95
[2024-01-20 09:31] VITALS: BP 125/70; PULSE 94; RESP 16; TEMP 36.9; O2SAT 95
[2024-01-20] MEDS: Pantoprazole Sodium 40 MG in 0.9% Normal Saline (100mL MB+) 100 ML 330 MG IV (09:35)
[2024-01-20 09:37] VITALS: BP 125/70; PULSE 94
[2024-01-20] MEDS: Metoprolol Tartrate 25 MG Tablet 12.5 MG PO (09:37)
[2024-01-20] MEDS: Lisinopril 20 MG Tablet PO (09:37)
[2024-01-20] MEDS: Enoxaparin 40 MG/0.4 ML Syringe SC (09:37)
[2024-01-20] MEDS: hydroCHLOROthiazide 12.5mg 12.5 MG PO (09:38)
[2024-01-20] MEDS: Aspirin 81 MG TAB.CHEW PO (09:38)
[2024-01-20 10:10] VITALS: BP 125/70; PULSE 94; RESP 16; TEMP 36.9; O2SAT 95
--- NOTE | 2024-01-20 10:48 | PN.HOSP_ITS ---
Subjective Subjective Feels little bit better today, white count is 37,000. She did have colitis and given her recent antibiotics C. difficile is a significant concern as she is also endorsing diarrhea Objective Data Objective Data Vital Signs: Vital Signs Temp Pulse Resp BP Pulse Ox O2 Del Method 98.4 F 94 16 125/70 H 95 Room Air 01/20/24 10:10 01/20/24 10:10 01/20/24 10:10 01/20/24 10:10 01/20/24 10:10 01/20/24 10:10 Oxygen Delivery Method Room Air Weight: 216 lb 4.375 oz Body Mass Index (BMI) 35.9 Intake & Output: Intake and Output for Last 24 Hours 01/19/24 01/20/24 01/21/24 03:59 03:59 03:59 Intake Total 210 / 210 160 / 160 Balance 210 / 210 160 / 160 Lab / Micro Data 01/20/24 05:20 01/20/24 05:20 Labs: Laboratory Results - last 24 hr 01/19/24 19:08: WBC 20.7 H, RBC 3.75 L, Hgb 12.2, Hct 36.3 L, MCV 96.8, MCH 32.5 H, MCHC 33.6, RDW Std Deviation 50.0 H, RDW Coeff of Tory 14.1, Plt Count 284, MPV 10.2, Immature Gran % (Auto) 1.000 H, Neut % (Auto) 89.7 H, Lymph % (Auto) 5.2 L, [place] % (Auto) 3.6, Eos % (Auto) 0.1, Baso % (Auto) 0.4, Absolute Neuts (auto) 18.6 H, Absolute Lymphs (auto) 1.08, Nucleated RBC % 0, PT 12.7, INR 1.0, APTT 28.1, Sodium 135 L, Potassium 3.9, Chloride 101, Carbon Dioxide 27.0, Anion Gap 7, BUN 9, Creatinine 0.89, Estim Creat Clear Calc 67.11, Est GFR (MDRD) Af Amer 80, Est GFR (MDRD) Non-Af 66, BUN/Creatinine Ratio 10.1, Glucose 134 H, Lactic Acid 0.8, Calcium 9.2, Magnesium 1.6, Total Bilirubin 0.80, AST 41 H, ALT 69 H, Alkaline Phosphatase 130 H, B-Natriuretic Peptide 195.7 H, Total Protein 6.5, Albumin 2.9 L, Globulin 3.6, Albumin/Globulin Ratio 0.8 L 01/19/24 22:05: Urine Color Yellow, Urine Clarity Clear, Urine pH 7.0, Ur Specific [place] 1.005, Urine Protein Negative, Urine Glucose (UA) Normal, Urine Ketones Negative, Urine Occult Blood Negative, Urine Nitrite Negative, Urine Bilirubin Negative, Urine Urobilinogen Normal, Ur Leukocyte Esterase Negative, Urine RBC 0 SEEN, Urine WBC 0 SEEN, Ur Squamous Epith Cells 0-5 SEEN, Urine Bacteria 0 SEEN, Urine Mucus 0 SEEN 01/19/24 23:45: Troponin I High Sens 39 01/20/24 01:35: Troponin I High Sens 36 01/20/24 05:20: WBC 37.0 H*, RBC 4.03 L, Hgb 13.1, Hct 38.7, MCV 96.0, MCH 32.5 H, MCHC 33.9, RDW Std Deviation 49.9 H, RDW Coeff of [place] 14.4, Plt Count 294, MPV 10.1, Immature Gran % (Auto) 1.300 H, Neut % (Auto) 91.8 H, Lymph % (Auto) 2.9 L, [place] % (Auto) 3.9, Eos % (Auto) 0.0, Baso % (Auto) 0.1, Absolute Neuts (auto) 33.9 H, Absolute Lymphs (auto) 1.07, Nucleated RBC % 0.1, Differential Comment COMMENT, Diff Path Review December, Sodium 136, Potassium 3.4 L, Chloride 100, Carbon Dioxide 25.0, Anion Gap 11, BUN 10, Creatinine 0.98, Estim Creat Clear Calc 60.16, Est GFR (MDRD) Af Amer 71, Est GFR (MDRD) Non-Af 59 L, BUN/Creatinine Ratio 10.2, Glucose 109 H, Calcium 9.1, Total Bilirubin 1.30 H, AST 28, ALT 56, Alkaline Phosphatase 124 H, Troponin I High Sens 29, Total Protein 6.5, Albumin 2.7 L, Globulin 3.8, Albumin/Globulin Ratio 0.7 L, Triglycerides 69, Cholesterol 133, LDL Cholesterol 77, VLDL Cholesterol 14, HDL Cholesterol 42, TSH 1.30 Micro: Microbiology 01/19/24 23:39 Stool Stool Lactoferrin - Final 01/19/24 19:30 Mucosa - Nose SARS-CoV-2, Influenza & RSV (PCR) - Final Radiography Diagnostic Testing: Radiology Impression Chest X-Ray 01/19/24 19:26 IMPRESSION: There are no acute findings. Electronically Signed: Julio César Salas MD at 19:40 EDT , Chest CTA 01/19/24 19:46 IMPRESSION: No demonstrated pulmonary embolism or arterial dissection. There are bilateral pleural effusions. Electronically Signed: Julio César Salas MD at 21:55 EDT , Abdomen/Pelvis CT 01/19/24 19:47 IMPRESSION: (NOT LISTED IN ORDER OF SIGNIFICANCE) Proximal colitis. Moderate right pleural effusion. Small left pleural effusion. There are multiple gallstones. Other findings as above. Electronically Signed: Julio César Salas MD at 21:57 EDT , Physical Exam Narrative General: Alert, Oriented x3, Cooperative, No apparent distress HEENT: Atraumatic, PERRLA, EOMI, Normocephalic Oral: Moist Mucosa Neck: Supple, No JVD Lungs: Diminished, Normal air movement, No rhonchi, No wheeze, No rales Cardiovascular: Regular rate, Regular Rhythm, Normal S1, Normal S2, No murmurs Abdomen: Soft, mild tender right lower quadrant, Non-Distended, No Hepato- splenomegaly Extremities: No edema, Capillary Refill Less than 3 Seconds Skin: No rashes, No breakdown Musculoskeletal: No Tenderness to Palpation of Joints or Extremities Neurological: No focal neurological deficits, Motor Exam 5/5 strength throughout, Sensory exam intact to light touch and pain Psych/Mental Status: Normal Affect, Appropriate Assessment & Plan Assessment/Plan (1) Fever: PLAN: Plan 1. Fever with leukocytosis and diarrhea in the setting of a recent right lower extremity cellulitis with new acute proximal colitis ? The cellulitis does appear to be improved and we are continue with her antibiotics ? There is a significant concern for C. difficile especially given the degree of leukocytosis, test is pending 2. Chronic diastolic CHF no decompensation/nonobstructive CAD/history of TIA/essential HTN/HLD delete that ? Blood pressures are stable ? Continue with her home medications ? We will monitor make adjustments as necessary ? Repeat echo is pending, last echo with an EF of 65% stage I diastolic dysfunction 3. Hypothyroidism ? Stable, TSH is normal ? Continue with Synthroid 4. GERD ? Stable ? Continue with famotidine DVT: Lovenox Charges/Coding Visit Charges Inpatient E&M: 37020 Subs Hosp L2
[2024-01-20 11:08] LABS: Pathologist Review Reviewed
--- NOTE | 2024-01-20 14:08 | DCINST_ITS ---
Discharge Instructions Diet Discharge Diet: Low fat / Low cholesterol Activity Discharge Activity: Return to Normal Activity Dressing / Incision Call your doctor if you observe: Fever of 101 or Higher, Shortness of breath, Dizziness, Fainting spells, Swelling in the ankles, Chest pain and Increased palpitations (irregular heartbeat) Follow Up Care Test Results: Test results from this visit will be discussed in further detail at your follow- up appointment, if applicable. Discharge Plan Admission Admit Date/Time: 01/19/24 22:23 Attending Provider: Gen Ramirez Primary Care Provider: Jodie Yanes Consulting Providers: Liliya Ballard; Alphonso Colmenares Instructions Patient Instructions: C diff Discharge Orders/Prescriptions Prescriptions: New vancomycin 125 mg capsule 125 mg PO Q6H 14 Days Qty: 56 0RF Continued cholecalciferol (vitamin D3) 125 mcg (5,000 unit) tablet 125 mcg PO DAILY trazodone 50 mg tablet 75 mg PO QHS PRN (Reason: insomnia) aspirin 81 MG tablet,chewable 81 mg PO DAILY@0800 Qty: 90 0RF famotidine [Acid Controller] 20 mg tablet 20 mg PO DAILY PRN (Reason: heartburn) alendronate 35 mg tablet 35 mg PO MO estradiol 0.01 % (0.1 mg/gram) cream 1 g vaginal .COMPLEX Rx Instructions: 1 g vaginal 1gm each night for 2 weeks, then 2x a week; NEEDED Complex B-100 Tablet Extended Release 1 tab PO DAILY psyllium husk [Daily Fiber] 0.52 gram capsule 0.52 g PO DAILY cephalexin 500 mg capsule 500 mg PO TID Qty: 21 0RF metoprolol tartrate 25 mg tablet 12.5 mg PO BID Qty: 90 3RF atorvastatin 20 mg tablet 20 mg PO QHS Qty: 90 3RF levothyroxine 75 mcg tablet 75 mcg PO DAILY Qty: 90 3RF lisinopril-hydrochlorothiazide 20-12.5 mg tablet 0.5 tab PO DAILY Qty: 90 1RF Referrals / Follow Up: Jodie Yanes MD [Primary Care Provider] - Within 1 Week Disposition Disposition (needs filled in before D/C Order can be placed): Home, Self Care
--- NOTE | 2024-01-20 14:18 | CON.PCM.ID_ITS ---
Assessment & Plan Assessment/Plan (1) C. difficile colitis: PLAN: Ok for home with 10 day course of po vanc. Can followup with ID if diarrhea returns. Will follow as needed, thank you HPI Consult Data Date of Consult: 01/20/24 HPI Narrative Reason for Consultation: colitis HPI Narrative: ROMERO PONCE, is a 73 F who presented after recent admit for RLE cellulitis. Yesterday, some new fever and soft stools. No abd pain. RLE doing well. Came to ED, CT showed some colitis. Admitted on zosyn, stool sent, now (+) cdiff. Feeling fine today, stool still soft. Full ROS performed and neg except as noted above. [facility] Medical History Myocardial infarct Abnormal CT of the abdomen Gallstones Bloating Flu vaccine need Hammer toe Preoperative evaluation to rule out surgical contraindication TIA (transient ischemic attack) Psoriasis Thyroid disease GERD (gastroesophageal reflux disease) Osteopenia Neuropathy Carpal tunnel syndrome Arthritis Atherosclerosis of coronary artery of [place] heart without angina pectoris Non-STEMI (non-ST elevated myocardial infarction) (~07/2017) Hypertension Hyperlipidemia Home Medications ?Medication ?Instructions ?Recorded ?Last Taken ?Type aspirin 81 mg chewable tablet 81 mg PO DAILY@0800 ##90 07/26/17 01/12/24 Rx cholecalciferol (vitamin D3) 125 125 mcg PO DAILY 07/04/21 01/12/24 History mcg (5,000 unit) tablet metoprolol tartrate 25 mg tablet 12.5 mg (1/2 x 25 mg) PO BID #90 04/09/23 01/12/24 Rx tabs atorvastatin 20 mg tablet 20 mg PO QHS #90 tabs 05/13/23 01/11/24 Rx levothyroxine 75 mcg tablet 75 mcg PO DAILY #90 tabs 09/11/23 01/12/24 Rx lisinopril 20 0.5 tab PO DAILY #90 tabs 11/28/23 01/12/24 Rx mg-hydrochlorothiazide 12.5 mg tablet trazodone 50 mg tablet 75 mg PO QHS PRN insomnia 01/07/24 01/11/24 History alendronate 35 mg tablet 35 mg PO MO 01/12/24 01/06/24 History estradiol 0.01% (0.1 mg/gram) 1 g vaginal .COMPLEX 01/12/24 Unknown History vaginal cream famotidine 20 mg tablet (Acid 20 mg PO DAILY PRN heartburn 01/12/24 Unknown History Controller) psyllium husk 0.52 gram capsule 0.52 g PO DAILY 01/12/24 Unknown History (Daily Fiber) vitamin B complex (Complex B-100 1 tab PO DAILY 01/12/24 01/12/24 History tablet,extended release) cephalexin 500 mg capsule 500 mg PO TID #21 caps 01/15/24 Unknown Rx vancomycin 125 mg capsule 125 mg PO Q6H 14 days #56 caps 01/20/24 Unknown Rx Allergy/AdvReac Type Severity Reaction Status Date / Time Sulfa (Sulfonamide Allergy Rash Verified 01/19/24 18:25 Antibiotics) Family History Brother Alcoholism Myocardial infarction Kidney disease Multiple myeloma Mother Arthritis Blood clot in vein Father Cancer Renal & Skin Kidney disease Surgical History History of left knee replacement History of colonoscopy (07/02/17) History of tubal ligation History of tonsillectomy and adenoidectomy History of hysterectomy History of carpal tunnel surgery of right wrist History of bladder suspension procedure History of foot surgery Social History (Updated 01/19/24 @ 22:[address] Liliya Ballard MD) household members: spouse Smoking Status: Never smoker second hand exposure: No alcohol intake: current alcohol intake frequency: a few times a week Alcohol type: wine substance use type: does not use caffeine: Yes frequency: 3-4 times per week Physical Exam Const alert, oriented x3 and no apparent distress General Appearance: cooperative HEENT normocephalic and head/scalp atraumatic Eyes PERRL and EOMs intact bilaterally Neck supple and No nodes Resp normal air movement and clear to auscultation bilaterally Cardio regular rate and regular rhythm GI soft to palpation, non-tender and non-distended Extremity General Extremity: edema Skin no rashes or lesions noted Neuro CN's II-XII intact bilaterally Lab / Micro Data Attestation: I reviewed the patient's lab results. 01/20/24 05:20 01/20/24 05:20 Labs: Laboratory Results - last 24 hr 01/19/24 19:08: WBC 20.7 H, RBC 3.75 L, Hgb 12.2, Hct 36.3 L, MCV 96.8, MCH 32.5 H, MCHC 33.6, RDW Std Deviation 50.0 H, RDW Coeff of Tory 14.1, Plt Count 284, MPV 10.2, Immature Gran % (Auto) 1.000 H, Neut % (Auto) 89.7 H, Lymph % (Auto) 5.2 L, [place] % (Auto) 3.6, Eos % (Auto) 0.1, Baso % (Auto) 0.4, Absolute Neuts (auto) 18.6 H, Absolute Lymphs (auto) 1.08, Nucleated RBC % 0, PT 12.7, INR 1.0, APTT 28.1, Sodium 135 L, Potassium 3.9, Chloride 101, Carbon Dioxide 27.0, Anion Gap 7, BUN 9, Creatinine 0.89, Estim Creat Clear Calc 67.11, Est GFR (MDRD) Af Amer 80, Est GFR (MDRD) Non-Af 66, BUN/Creatinine Ratio 10.1, Glucose 134 H, Lactic Acid 0.8, Calcium 9.2, Magnesium 1.6, Total Bilirubin 0.80, AST 41 H, ALT 69 H, Alkaline Phosphatase 130 H, B-Natriuretic Peptide 195.7 H, Total Protein 6.5, Albumin 2.9 L, Globulin 3.6, Albumin/Globulin Ratio 0.8 L 01/19/24 22:05: Urine Color Yellow, Urine Clarity Clear, Urine pH 7.0, Ur Specific [place] 1.005, Urine Protein Negative, Urine Glucose (UA) Normal, Urine Ketones Negative, Urine Occult Blood Negative, Urine Nitrite Negative, Urine Bilirubin Negative, Urine Urobilinogen Normal, Ur Leukocyte Esterase Negative, Urine RBC 0 SEEN, Urine WBC 0 SEEN, Ur Squamous Epith Cells 0-5 SEEN, Urine Bacteria 0 SEEN, Urine Mucus 0 SEEN 01/19/24 23:45: Troponin I High Sens 39 01/20/24 01:35: Troponin I High Sens 36 01/20/24 05:20: WBC 37.0 H*, RBC 4.03 L, Hgb 13.1, Hct 38.7, MCV 96.0, MCH 32.5 H, MCHC 33.9, RDW Std Deviation 49.9 H, RDW Coeff of Tory 14.4, Plt Count 294, MPV 10.1, Immature Gran % (Auto) 1.300 H, Neut % (Auto) 91.8 H, Lymph % (Auto) 2.9 L, [place] % (Auto) 3.9, Eos % (Auto) 0.0, Baso % (Auto) 0.1, Absolute Neuts (auto) 33.9 H, Absolute Lymphs (auto) 1.07, Nucleated RBC % 0.1, Differential Comment COMMENT, Diff Path Review Reviewed, Sodium 136, Potassium 3.4 L, Chloride 100, Carbon Dioxide 25.0, Anion Gap 11, BUN 10, Creatinine 0.98, Estim Creat Clear Calc 60.16, Est GFR (MDRD) Af Amer 71, Est GFR (MDRD) Non-Af 59 L, BUN/Creatinine Ratio 10.2, Glucose 109 H, Calcium 9.1, Total Bilirubin 1.30 H, AST 28, ALT 56, Alkaline Phosphatase 124 H, Troponin I High Sens 29, Total Protein 6.5, Albumin 2.7 L, Globulin 3.8, Albumin/Globulin Ratio 0.7 L, Triglycerides 69, Cholesterol 133, LDL Cholesterol 77, VLDL Cholesterol 14, HDL Cholesterol 42, TSH 1.30 Micro: Microbiology 01/19/24 23:39 Stool Stool Lactoferrin - Final 01/19/24 23:39 Stool Enteric Bacteriology - Final 01/19/24 23:39 Stool C. difficile GDH Antigen & Toxins - Final Toxigenic C. difficile 01/19/24 23:39 Stool Clostridioides difficile (PCR) - Final 01/19/24 19:30 Mucosa - Nose SARS-CoV-2, Influenza & RSV (PCR) - Final Imaging Radiology Impression Chest X-Ray 01/19/24 19:26 IMPRESSION: There are no acute findings. Electronically Signed: Julio César Salas MD at 19:40 EDT , Chest CTA 01/19/24 19:46 IMPRESSION: No demonstrated pulmonary embolism or arterial dissection. There are bilateral pleural effusions. Electronically Signed: Julio César Salas MD at 21:55 EDT , Abdomen/Pelvis CT 01/19/24 19:47 IMPRESSION: (NOT LISTED IN ORDER OF SIGNIFICANCE) Proximal colitis. Moderate right pleural effusion. Small left pleural effusion. There are multiple gallstones. Other findings as above. Electronically Signed: Julio César Salas MD at 21:57 EDT ,
--- NOTE | 2024-01-20 14:30 | PCM.DC.SUM ---
Providers Date of Admission: 01/19/24 Primary Care Physician: Dr. Jodie Yanes MD Consultations 01/19/24 23:00 Consult: Infectious Disease Routine Consulting Provider: Alphonso Colmenares Reason for Consult: Recent cellulitis, return w/ Fever, now colitis, ? recurrent cellulitis RLE EMERGENT Consult: No MD Notified: Yes Date Notified: 01/19/24 Time Notified: 22:27 Method of Notification: Answering Service Reason For Visit: COLITIS, ? HF, RLE CELLULITIS Diagnosis Discharge Diagnosis (1) C. difficile colitis: Status: Acute Code(s): A04.72 - Enterocolitis due to Clostridium difficile, not specified as recurrent Plan 1. Fever with leukocytosis and diarrhea in the setting of a recent right lower extremity cellulitis with new acute proximal colitis ? The cellulitis does appear to be improved and we are continue with her antibiotics ? There is a significant concern for C. difficile especially given the degree of leukocytosis, test is pending 2. Chronic diastolic CHF no decompensation/nonobstructive CAD/history of TIA/essential HTN/HLD delete that ? Blood pressures are stable ? Continue with her home medications ? We will monitor make adjustments as necessary ? Repeat echo is pending, last echo with an EF of 65% stage I diastolic dysfunction 3. Hypothyroidism ? Stable, TSH is normal ? Continue with Synthroid 4. GERD ? Stable ? Continue with famotidine DVT: Lovenox Medications at Discharge Home Medications aspirin 81 mg chewable tablet 81 mg PO DAILY@0800 ##90 07/26/17 cholecalciferol (vitamin D3) 125 mcg (5,000 unit) tablet 125 mcg PO DAILY 07/04/21 metoprolol tartrate 25 mg tablet 12.5 mg (1/2 x 25 mg) PO BID #90 tabs 04/09/23 atorvastatin 20 mg tablet 20 mg PO QHS #90 tabs 05/13/23 levothyroxine 75 mcg tablet 75 mcg PO DAILY #90 tabs 09/11/23 lisinopril 20 mg-hydrochlorothiazide 12.5 mg tablet 0.5 tab PO DAILY #90 tabs 11/28/23 trazodone 50 mg tablet 75 mg PO QHS PRN insomnia 01/07/24 alendronate 35 mg tablet 35 mg PO MO 01/12/24 estradiol 0.01% (0.1 mg/gram) vaginal cream 1 g vaginal .COMPLEX 01/12/24 famotidine 20 mg tablet (Acid Controller) 20 mg PO DAILY PRN heartburn 01/12/24 psyllium husk 0.52 gram capsule (Daily Fiber) 0.52 g PO DAILY 01/12/24 vitamin B complex (Complex B-100 tablet,extended release) 1 tab PO DAILY 01/12/24 cephalexin 500 mg capsule 500 mg PO TID #21 caps 01/15/24 vancomycin 125 mg capsule 125 mg PO Q6H 14 days #56 caps 01/20/24 Hospital Course Operations None Procedures None Summary of Care Provided Minutes Spent on Discharge: 35 Hospital Course: Per HPI: The patient is a 73 y/o F w/ PMHx: Obesity, GERD, HTN, HLD, Chronic anemia, Hx TIA, Psoriasis, Hx NSTEMI, Known trivial PFO, recent 01/15/2024 discharge following evaluation and treatment of severe sepsis secondary to right lower extremity cellulitis with history of prior right total knee replacement and hardware in the right foot, initially administered IV Ancef and vancomycin with infectious disease following transitioned at discharge to oral cephalexin with plan 500 mg p.o. 3 times daily for an additional 21 doses who now represents to the [facility] ED on 01/19/2024 with onset of recurrent fever reportedly doing well since her discharge until day of presentation with initially her erythema significantly improved but overnight she had increased swelling starting in her foot prompting her to use an Vasu wrap to wrap around her leg to assist with the swelling within onset of fever with self administration at 1:30 in the afternoon of Tylenol however continued to rise prompting ibuprofen administration at 4 PM with no worsening appearance of the leg but still some mild distal posterior leg erythema with no wounds however she does report that she has had a mild cough and she has been short of breath especially since her discharge with her weight reportedly increased by 20 to 25 pounds during that admission but she states that now she is back down to only 10 pounds over her preadmission weight with mild abdominal discomfort and stools slightly loose but not diarrhea consistent prompting ED return. From review of weights upon admission recently patient 01/12/2024 weight reported as 209 pounds and 14 ounces, currently upon presentation weight now 221 pound 9 ounces. From review of records during recent admission blood cultures with no growth and no previous wound cultures noted. Workup in the ED included T99.3, heart rate 92, BP 139/72, respiratory rate 18, 92% on room air with most recent repeat vital signs T98.4, heart 82, BP 125/70, respiratory rate 19, 94% on room air, CBC with WBC 20.7, hemoglobin 12.2, MCV 96.8, platelet 284 with left shift, unremarkable coags, CMP with sodium 135, glucose 134, AST/ALT 41/69, alk phos 130, lactic acid 0.8, chest x-ray with no acute cardiopulmonary findings, blood culture pending per ED, rapid SARS COVID/influenza/RSV negative, CT abdomen and pelvis with proximal colitis with noted wall thickening and inflammation of the cecum and ascending colon, moderate pleural effusion, small left pleural effusion, multiple gallstones, CTPA with no demonstrated PE or dissection, bilateral pleural effusion, EKG with SR without no acute evidence of ischemia. In the ED patient administered tylenol and IV zosyn. Hospital Course: 1. C. difficile colitis?73-year-old female with recently been to the hospital for right lower extremity cellulitis and was discharged on 01/15/2024 with improvement in her cellulitis as well as her leukocytosis. Then she presented back to the hospital a few days later with increased fevers and was found to have a leukocytosis that peaked on the day of discharge to 37,000. She is also been having loose stools that she had initially attributed to the antibiotics that she was on. Stool testing did come back positive for C. difficile so she was started on p.o. vancomycin. I discussed with her the possibility of waiting a day or 2 to make sure that there is improvement versus going home today. She would prefer to be discharged today. I discussed with her that possibility and she expressed understanding of the risk and benefits of going home and would still like to go home today. 2. Right lower extremity cellulitis?it is improving so we will continue with her Keflex as previously prescribed, she will have p.o. vancomycin for her C. difficile and the p.o. vancomycin will be of a longer duration than the antibiotics for her cellulitis. 3. Osteoporosis, hyperlipidemia, essential hypertension, hypothyroidism, GERD are chronic medical conditions which complicate her care. Her home medications were continued where appropriate Weight / BMI Weight Weight: 216 lb 4.375 oz Body Mass Index (BMI) 35.9 ABG / Lab / Microbiology Data 01/20/24 05:20 01/20/24 05:20 Laboratory: Laboratory Results - last 24 hr 01/19/24 19:08: WBC 20.7 H, RBC 3.75 L, Hgb 12.2, Hct 36.3 L, MCV 96.8, MCH 32.5 H, MCHC 33.6, RDW Std Deviation 50.0 H, RDW Coeff of Tory 14.1, Plt Count 284, MPV 10.2, Immature Gran % (Auto) 1.000 H, Neut % (Auto) 89.7 H, Lymph % (Auto) 5.2 L, Pike % (Auto) 3.6, Eos % (Auto) 0.1, Baso % (Auto) 0.4, Absolute Neuts (auto) 18.6 H, Absolute Lymphs (auto) 1.08, Nucleated RBC % 0, PT 12.7, INR 1.0, APTT 28.1, Sodium 135 L, Potassium 3.9, Chloride 101, Carbon Dioxide 27.0, Anion Gap 7, BUN 9, Creatinine 0.89, Estim Creat Clear Calc 67.11, Est GFR (MDRD) Af Amer 80, Est GFR (MDRD) Non-Af 66, BUN/Creatinine Ratio 10.1, Glucose 134 H, Lactic Acid 0.8, Calcium 9.2, Magnesium 1.6, Total Bilirubin 0.80, AST 41 H, ALT 69 H, Alkaline Phosphatase 130 H, B-Natriuretic Peptide 195.7 H, Total Protein 6.5, Albumin 2.9 L, Globulin 3.6, Albumin/Globulin Ratio 0.8 L 01/19/24 22:05: Urine Color Yellow, Urine Clarity Clear, Urine pH 7.0, Ur Specific [place] 1.005, Urine Protein Negative, Urine Glucose (UA) Normal, Urine Ketones Negative, Urine Occult Blood Negative, Urine Nitrite Negative, Urine Bilirubin Negative, Urine Urobilinogen Normal, Ur Leukocyte Esterase Negative, Urine RBC 0 SEEN, Urine WBC 0 SEEN, Ur Squamous Epith Cells 0-5 SEEN, Urine Bacteria 0 SEEN, Urine Mucus 0 SEEN 01/19/24 23:45: Troponin I High Sens 39 01/20/24 01:35: Troponin I High Sens 36 01/20/24 05:20: WBC 37.0 H*, RBC 4.03 L, Hgb 13.1, Hct 38.7, MCV 96.0, MCH 32.5 H, MCHC 33.9, RDW Std Deviation 49.9 H, RDW Coeff of Tory 14.4, Plt Count 294, MPV 10.1, Immature Gran % (Auto) 1.300 H, Neut % (Auto) 91.8 H, Lymph % (Auto) 2.9 L, Pike % (Auto) 3.9, Eos % (Auto) 0.0, Baso % (Auto) 0.1, Absolute Neuts (auto) 33.9 H, Absolute Lymphs (auto) 1.07, Nucleated RBC % 0.1, Differential Comment COMMENT, Diff Path Review Reviewed, Sodium 136, Potassium 3.4 L, Chloride 100, Carbon Dioxide 25.0, Anion Gap 11, BUN 10, Creatinine 0.98, Estim Creat Clear Calc 60.16, Est GFR (MDRD) Af Amer 71, Est GFR (MDRD) Non-Af 59 L, BUN/Creatinine Ratio 10.2, Glucose 109 H, Calcium 9.1, Total Bilirubin 1.30 H, AST 28, ALT 56, Alkaline Phosphatase 124 H, Troponin I High Sens 29, Total Protein 6.5, Albumin 2.7 L, Globulin 3.8, Albumin/Globulin Ratio 0.7 L, Triglycerides 69, Cholesterol 133, LDL Cholesterol 77, VLDL Cholesterol 14, HDL Cholesterol 42, TSH 1.30 Microbiology: Microbiology 01/19/24 23:39 Stool Stool Lactoferrin - Final 01/19/24 23:39 Stool Enteric Bacteriology - Final 01/19/24 23:39 Stool C. difficile GDH Antigen & Toxins - Final Toxigenic C. difficile 01/19/24 23:39 Stool Clostridioides difficile (PCR) - Final 01/19/24 19:30 Mucosa - Nose SARS-CoV-2, Influenza & RSV (PCR) - Final Radiography Diagnostic Testing: Radiology Impression Chest X-Ray 01/19/24 19:26 IMPRESSION: There are no acute findings. Electronically Signed: Julio César Salas MD at 19:40 EDT , Chest CTA 01/19/24 19:46 IMPRESSION: No demonstrated pulmonary embolism or arterial dissection. There are bilateral pleural effusions. Electronically Signed: Julio César Salas MD at 21:55 EDT , Abdomen/Pelvis CT 01/19/24 19:47 IMPRESSION: (NOT LISTED IN ORDER OF SIGNIFICANCE) Proximal colitis. Moderate right pleural effusion. Small left pleural effusion. There are multiple gallstones. Other findings as above. Electronically Signed: Julio César Salas MD at 21:57 EDT , D/C Instructions Discharge Diet: Low fat / Low cholesterol Call your doctor if you observe: Fever of 101 or Higher, Shortness of breath, Dizziness, Fainting spells, Swelling in the ankles, Chest pain and Increased palpitations (irregular heartbeat) Meaningful Use Info Meaningful Use Meaningful Use Diagnoses (Choose all that apply): None applicable Ischemic Stroke Statin Dosing Therapy Reference: STATIN DOSE THERAPY REFERENCE: * Patients > 75 years receive moderate or high dose statin therapy. * Patients 75 years or YOUNGER should receive HIGH intensity statin dose unless contraindicated. You will be required to document reason for non-treatment if statin daily dose does not meet guidelines. HIGH DOSE STATIN THERAPY DAILY Atorvastatin > than or = to 40 mg Rosuvastatin > than or = to 20 mg Amlodipine + Atorvastatin > than or = to 2.5/40 mg Ezetimibe + Simvastatin 10/80 mg Simvastatin 80mg Discharge Plan Admission Admit Date/Time: 01/19/24 22:23 Attending Provider: Gen Ramirez Primary Care Provider: Jodie Yanes Consulting Providers: Liliya Ballard; Alphonso Colmenares Instructions Patient Instructions: C diff Discharge Orders/Prescriptions Prescriptions: New vancomycin 125 mg capsule 125 mg PO Q6H 14 Days Qty: 56 0RF Continued cholecalciferol (vitamin D3) 125 mcg (5,000 unit) tablet 125 mcg PO DAILY trazodone 50 mg tablet 75 mg PO QHS PRN (Reason: insomnia) aspirin 81 MG tablet,chewable 81 mg PO DAILY@0800 Qty: 90 0RF famotidine [Acid Controller] 20 mg tablet 20 mg PO DAILY PRN (Reason: heartburn) alendronate 35 mg tablet 35 mg PO MO estradiol 0.01 % (0.1 mg/gram) cream 1 g vaginal .COMPLEX Rx Instructions: 1 g vaginal 1gm each night for 2 weeks, then 2x a week; NEEDED Complex B-100 Tablet Extended Release 1 tab PO DAILY psyllium husk [Daily Fiber] 0.52 gram capsule 0.52 g PO DAILY cephalexin 500 mg capsule 500 mg PO TID Qty: 21 0RF metoprolol tartrate 25 mg tablet 12.5 mg PO BID Qty: 90 3RF atorvastatin 20 mg tablet 20 mg PO QHS Qty: 90 3RF levothyroxine 75 mcg tablet 75 mcg PO DAILY Qty: 90 3RF lisinopril-hydrochlorothiazide 20-12.5 mg tablet 0.5 tab PO DAILY Qty: 90 1RF Referrals / Follow Up: Jodie Yanes MD [Primary Care Provider] - Within 1 Week Disposition Disposition (needs filled in before D/C Order can be placed): Home, Self Care Charges/Coding Visit Charges Inpatient E&M: 37934 Disch Hosp >30min
--- NOTE | 2024-01-20 14:47 | PHA.DC.MC.R ---
Pharmacy [facility] has performed discharge medication reconciliation and counseling for this patient. 1. VANCOMYCIN 125MG PO Q6 X 14 DAYS The patient's discharge medication list was reviewed for discrepancies and discrepancies were resolved. The patient was counseled on the following discharge medications and changes in medications for homegoing were reviewed. The Reason for Use, instructions for use, and potential side effects were reviewed for all new medications. The patient's questions regarding all of their medications were answered. The patient was able to verbally demonstrate an understanding of their discharge medications. Medications at Discharge Home Medications aspirin 81 mg chewable tablet 81 mg PO DAILY@0800 ##90 07/26/17 cholecalciferol (vitamin D3) 125 mcg (5,000 unit) tablet 125 mcg PO DAILY 07/04/21 metoprolol tartrate 25 mg tablet 12.5 mg (1/2 x 25 mg) PO BID #90 tabs 04/09/23 atorvastatin 20 mg tablet 20 mg PO QHS #90 tabs 05/13/23 levothyroxine 75 mcg tablet 75 mcg PO DAILY #90 tabs 09/11/23 lisinopril 20 mg-hydrochlorothiazide 12.5 mg tablet 0.5 tab PO DAILY #90 tabs 11/28/23 trazodone 50 mg tablet 75 mg PO QHS PRN insomnia 01/07/24 alendronate 35 mg tablet 35 mg PO MO 01/12/24 estradiol 0.01% (0.1 mg/gram) vaginal cream 1 g vaginal .COMPLEX 01/12/24 famotidine 20 mg tablet (Acid Controller) 20 mg PO DAILY PRN heartburn 01/12/24 psyllium husk 0.52 gram capsule (Daily Fiber) 0.52 g PO DAILY 01/12/24 vitamin B complex (Complex B-100 tablet,extended release) 1 tab PO DAILY 01/12/24 cephalexin 500 mg capsule 500 mg PO TID #21 caps 01/15/24 vancomycin 125 mg capsule 125 mg PO Q6H 14 days #56 caps 01/20/24
--- NOTE | 2024-01-20 14:48 | CASEMGMT ---
Readmission Note: Index: 01/11-01/15/24. Dx: Cellulitis of Leg Readmission: 01/19/24. Dx: Colitis, HF, RLE Cellulitis On recent admission, the pt was evaluated and treated for severe sepsis secondary to RLE cellulitis with a history of Rt Total Knee replacement and hardware to the pt Rt Foot. ID was following the pt and prescribed cephalexin PO 3 times daily at DC. RN CM to pt room at this time. Pt states that she was able to get her ATB and take it as ordered. Pt returns to this ER with c/o recurrent fever. Pt was found to be (+) for C-Diff and is being DC home today with PO Vancomycin. Pt denies the need for HHC or OP therapy. TC to DC DM and they state that the medication is 422$ after insurance. The pharmacist then states that they have a discount code for the pt that brought the cost down to 60$. Pt updated with this information and states agreeance. Pt denies all other homegoing needs at this time.
[2024-01-20] MEDS: Vancomycin 125 MG/5 ML Susp PO.SYRINGE PO (14:57)
[2024-01-20 15:05] VITALS: BP 131/71; PULSE 88; RESP 16; TEMP 36.9; O2SAT 94
== END 2024-01-20 16:20 | disposition home or self-care (01) | DRG 372 ==
LOC: ED 22:23 → PCU 22:46
PROVIDERS: Admitting Provider Family Medicine; Emergency Provider Emergency Medicine; PCP Internal Medicine; Visit Provider Family Medicine
DX: A04.72 Enterocolitis due to Clostridium difficile, not specified as recurrent (principal); L03.115 Cellulitis of right lower limb; I50.32 Chronic diastolic (congestive) heart failure; I11.0 Hypertensive heart disease with heart failure; E03.9 Hypothyroidism, unspecified; E78.5 Hyperlipidemia, unspecified; K21.9 Gastro-esophageal reflux disease without esophagitis; I25.2 Old myocardial infarction; I25.10 Atherosclerotic heart disease of native coronary artery without angina pectoris; E66.9 Obesity, unspecified; M81.0 Age-related osteoporosis without current pathological fracture; Z68.36 Body mass index [BMI] 36.0-36.9, adult; Z79.82 Long term (current) use of aspirin; Z79.83 Long term (current) use of bisphosphonates; Z79.899 Other long term (current) drug therapy; Z86.73 Personal history of transient ischemic attack (TIA), and cerebral infarction without residual deficits
CPT/HCPCS: 36415; 71045; 71275; 74177; 80053; 80061; 81001; 83605; 83630; 83735; 83880; 84443; 84484; 85025; 85610; 85730; 87040; 87077; 87086; 87088; 87177; 87184; 87186; 87209; 87493; 87506; 87631; 93005; 93306; 93971; 97802; 99285; Q9967; A4216; J1940

== ENCOUNTER → 2024-02-12 | Outpatient (CLI) | payer MEDICARE, OTHER, SELFPAY ==
[2024-02-12 10:12] LABS: Absolute Lymphocyte Count 2.34 X10^3/uL (0.83-4.51); Absolute Neutrophil Count 12.8 X10^3/uL (2.0-7.7); Basophil# 0.05 X10^3/uL; Basophil% 0.3 % (0-1); Eosinophil# 0.13 X10^3/uL; Eosinophils% 0.8 % (0-5); Hematocrit 41.6 % (37-47); Hemoglobin 13.8 g/dL (12.0-15.0); Lymphocyte # 2.34 X10^3/ul (0.83-4.51); Lymphocyte % 14.3 % (19-41); Mean Corp Hgb Conc 33.2 g/dL (32-36); Mean Corpuscular Hgb 31.7 pg (27.0-32.0); Mean Corpuscular Volume 95.6 fL (81-99); Mean Platelet Vol. 9.1 fl (6.2-12.0); Monocyte# 1.04 X10^3/uL; Monocyte% 6.3 % (0-10); NRBC Flagged by Analyzer 0 % (0-5); Neutrophil # 12.75 X10^3/uL (2.7-7.7); Neutrophil % 77.9 % (47-70); Platelet Count 206 K/mm3 (150-450); RBC Distribution Width CV 14.3 % (11.6-14.6); RBC Distribution Width SD 50.3 fl (35.1-43.9); Red Blood Count 4.35 M/mm3 (4.2-5.4); White Blood Count 16.4 K/mm3 (4.4-11.0)
[2024-02-12 11:00] LABS: ALB/GLOB Ratio 0.9 RATIO (0.9-2.4); AST(SGOT) 27 U/L (15-37); Alanine Aminotransfer ALT/SGPT 30 U/L (13-56); Albumin, Serum 3.5 g/dL (3.2-5.0); Alkaline Phosphatase 57 U/L (45-117); Anion Gap 8 (5-15); BUN 18 mg/dL (7-18); BUN/Creat Ratio 18.6 RATIO (10-20); Calcium,Total 9.7 mg/dL (8.5-10.1); Chloride 102 mmol/L (98-107); Creatinine, Serum 0.97 mg/dL (0.55-1.02); EST Glomerular Filtration Rate 60 mL/min (>60); Est Glom Filt Rate - Afr Amer 73 mL/min (>60); Globulin 3.7 g/dL (2.2-4.2); Glucose 140 mg/dL (74-106); Potassium 3.8 mmol/L (3.5-5.1); Protein, Total 7.2 g/dL (6.4-8.2); Sodium Level 136 mmol/L (136-145)
[2024-02-12 11:01] LABS: Hemoglobin A1c 5.6 % (3.8-5.6)
== END | disposition home or self-care (01) ==
PROVIDERS: PCP Internal Medicine; Referring Provider Internal Medicine; Visit Provider Internal Medicine
DX: A04.72 Enterocolitis due to Clostridium difficile, not specified as recurrent (principal); E88.819 Insulin resistance, unspecified; E66.9 Obesity, unspecified; R73.9 Hyperglycemia, unspecified; E03.9 Hypothyroidism, unspecified
CPT/HCPCS: 36415; 80053; 83036; 85025; 87493

== ENCOUNTER 2024-04-26 18:45 | Inpatient (IN) | payer MEDICARE, OTHER, SELFPAY ==
[2024-04-26] VITALS (9 sets, daily range): BP systolic 105–131; BP diastolic 62–86; PULSE 58–78; RESP 16–19; TEMP 36.2–36.7; O2SAT 96–99; BMI 32.4; BMI 33.4
--- NOTE | 2024-04-26 19:02 | EKG12_ITS ---
Test Reason : CP Blood Pressure : / mmHG Vent. Rate : 056 BPM Atrial Rate : 056 BPM P-R Int : 182 ms QRS Dur : 080 ms QT Int : 422 ms P-R-T Axes : -01 -10 037 degrees QTc Int : 407 ms Sinus bradycardia Inferior infarct (cited on or before 11-SEP-2005) Abnormal ECG Confirmed by ASHOK ALVAREZ, REI ([id number]), assistant film editor VASILE HENRY ([id number]) on 04/27/2024 12:49:48 PM Referred By: YAKOV Confirmed By:REI PULIDO MD
--- NOTE | 2024-04-26 19:04 | ED.VIS.CHEST ---
HPI History of Present Illness Chief Complaint: Chest Pain Informant: patient Narrative Narrative: Patient is a 74-year-old female with history of hypothyroidism, TIA, GERD, C. difficile colitis, thyroid disease and heart attack (states her cath was normal and they told her it was vasospasm) presenting with chest pain. Patient states about 30 minutes ago she had sudden onset of pain in the center of her chest. She states it feels that there is an elephant sitting on her chest. It feels like her prior heart attack. She notes she had 81 mg of aspirin around 230 or 3 PM today. When this episode started she became diaphoretic paretic and nauseous and gag but did not throw up. She denies any radiation of pain to her back. Denies any pain in her shoulders or jaw. Denies eating anything right before this episode. States she was in normal state of health this morning and [place] with [place]. Outpatient cardiology visit note from 01/07/2024 reviewed. She has a history of NSTEMI July 2017 with cath that showed an EF of 60% with some anterior hypokinesis. Left anterior descending had mild luminal irregularities less than 30% of the circumflex and right coronaries were angiographically normal. Thought to be stress related that she had had some personal issues and significant family issues at the time of this episode. Has well-controlled hypertension. Prior Similar Symptoms: With Prior Angina [facility] Medical History Recurrent Clostridioides difficile diarrhea Hammer toe TIA (transient ischemic attack) Psoriasis Thyroid disease GERD (gastroesophageal reflux disease) Osteopenia Neuropathy Carpal tunnel syndrome Arthritis Atherosclerosis of coronary artery of [place] heart without angina pectoris Non-STEMI (non-ST elevated myocardial infarction) (~07/2017) Hypertension Hyperlipidemia Home Medications ?Medication ?Instructions ?Recorded ?Last Taken ?Type aspirin 81 mg chewable tablet 81 mg PO DAILY@0800 ##90 07/26/17 01/12/24 Rx cholecalciferol (vitamin D3) 125 125 mcg PO DAILY 07/04/21 01/12/24 History mcg (5,000 unit) tablet atorvastatin 20 mg tablet 20 mg PO QHS #90 tabs 05/13/23 01/11/24 Rx levothyroxine 75 mcg tablet 75 mcg PO DAILY #90 tabs 09/11/23 01/12/24 Rx lisinopril 20 0.5 tab PO DAILY #90 tabs 11/28/23 01/12/24 Rx mg-hydrochlorothiazide 12.5 mg tablet trazodone 50 mg tablet 75 mg PO QHS PRN insomnia 01/07/24 01/11/24 History alendronate 35 mg tablet 35 mg PO MO 01/12/24 01/06/24 History estradiol 0.01% (0.1 mg/gram) 1 g vaginal .COMPLEX 01/12/24 Unknown History vaginal cream famotidine 20 mg tablet (Acid 20 mg PO DAILY PRN heartburn 01/12/24 Unknown History Controller) psyllium husk 0.52 gram capsule 0.52 g PO DAILY 01/12/24 Unknown History (Daily Fiber) vitamin B complex (Complex B-100 1 tab PO DAILY 01/12/24 01/12/24 History tablet,extended release) vancomycin 125 mg capsule 125 mg PO DIRECTED #60 caps 03/26/24 Unknown Rx metoprolol tartrate 25 mg tablet 12.5 mg (1/2 x 25 mg) PO BID #90 03/31/24 Unknown Rx tabs Allergy/AdvReac Type Severity Reaction Status Date / Time Sulfa (Sulfonamide Allergy Rash Verified 04/26/24 18:51 Antibiotics) Family History Brother Alcoholism Myocardial infarction Kidney disease Multiple myeloma Mother Arthritis Blood clot in vein Father Cancer Renal & Skin Kidney disease Surgical History History of left knee replacement History of colonoscopy (07/02/17) History of tubal ligation History of tonsillectomy and adenoidectomy History of hysterectomy History of carpal tunnel surgery of right wrist History of bladder suspension procedure History of foot surgery Social History household members: spouse Smoking Status: Never smoker second hand exposure: No alcohol intake: current alcohol intake frequency: a few times a week Alcohol type: wine substance use type: does not use caffeine: Yes frequency: 3-4 times per week ROS ROS ED Constitutional Constitutional ED: Reports sweats; Denies chills or fever(s) Eyes Eyes: Denies change in vision ENT ENT ED: Denies sore throat Cardiovascular Cardiovascular: Reports as per HPI and chest pain; Denies palpitations Respiratory/Chest Respiratory/Chest: Denies cough or dyspnea Gastrointestinal Gastrointestinal: Reports nausea; Denies abdominal pain or vomiting Musculoskeletal Musculoskeletal: Denies arthralgias, back pain or myalgias Integumentary Denies rash Neurologic Neurologic: Denies headache(s) Hematologic/Lymphatic Hematologic/Lymphatic: Denies easy bleeding or easy bruising EXAM Physical Exam Const Vital Signs: 04/26/24 18:45 04/26/24 18:54 04/26/24 19:02 Temperature 97.2 F L Temperature Source Temporal Pulse Rate 58 L Respiratory Rate 16 Respiratory Effort Normal Blood Pressure 131/79 H Blood Pressure Mean 96 Pulse Ox 97 98 Oxygen Delivery Method Room Air Room Air 04/26/24 19:30 04/26/24 20:05 04/26/24 21:00 Temperature Temperature Source Pulse Rate 58 L 67 Respiratory Rate 19 H 17 Respiratory Effort Blood Pressure 124/74 H 105/62 122/86 H Blood Pressure Mean 76 98 Pulse Ox 96 96 Oxygen Delivery Method Positive well nourished and well developed General Appearance ED: well developed and NAD HEENT Reports moist mucous membranes Eyes PERRL and EOMs intact bilaterally Neck supple and no JVD Chest Wall inspection of chest normal and palpation of chest normal Resp normal respiratory effort and clear to auscultation bilaterally Cardio regular rate, regular rhythm and no murmurs Peripheral Pulses: radial pulses present bilateral 2+ GI normal to inspection, nondistended, normoactive bowel sounds, soft to palpation and non-tender Extremity normal to inspection Extremity Narrative: Trace pedal edema present Neuro oriented x3 Sensorium / Orientation: awake and alert Motor Exam: Negative for general weakness Psych mental status grossly normal Heart Score History: Highly Suspicious ECG: Normal Age: >/= 65 years Risk Factors: 1 or 2 Risk Factors Troponin: >/=3 x Normal Limit Score: 7 MDM MDM MDM Narrative Medical decision making narrative: Patient evaluated for sudden onset of chest pressure. States he feels that her prior ME. Initial EKG does not show any acute ischemic changes but I does have a very subtle change in V2 which I question if is an early change consistent with Wellens syndrome. Patient is given nitro and EKG is repeated with resolution of this change. Cardiac workup is remarkable for elevated high sensitive troponin of 567. Patient started on heparin drip and given gentle IV fluids as her creatinine is mildly elevated at 1.22. Chest x-ray febrile myself as well as radiology does not show any acute process. She does not have any ripping or tearing pain so low suspicion for acute aortic dissection. Case is discussed with hospitalist. Delta troponin does show significant increase in her high sensitive troponin up to 1800. Case is discussed with cardiology on-call, Dr. Prabhakar, who has no further recommendations at this time. Patient admitted on heparin drip and monitored for symptoms. While in the ER patient of resolution of her symptoms with 1 dose of nitroglycerin. History & Record Review Additional record(s) reviewed:: Prior outpatient record (Cardiology visit-see HPI) Lab Data Attestation: I reviewed the patient's lab results. Labs: Laboratory Results - last 24 hr 04/26/24 18:57 WBC 10.3 RBC 4.40 Hgb 14.4 Hct 42.8 MCV 97.3 MCH 32.7 H MCHC 33.6 RDW Std Deviation 51.2 H RDW Coeff of Tory 14.2 Plt Count 246 MPV 9.7 Immature Gran % (Auto) 0.200 Neut % (Auto) 52.3 Lymph % (Auto) 34.3 Love % (Auto) 9.7 Eos % (Auto) 2.8 Baso % (Auto) 0.7 Absolute Neuts (auto) 5.4 Absolute Lymphs (auto) 3.54 Nucleated RBC % 0 PT 13.7 INR 1.1 APTT 27.4 Sodium 134 L Potassium 3.9 Chloride 101 Carbon Dioxide 25.0 Anion Gap 8 BUN 29 H Creatinine 1.22 H Estim Creat Clear Calc 45.11 Est GFR (MDRD) Af Amer 56 L Est GFR (MDRD) Non-Af 46 L BUN/Creatinine Ratio 23.8 H Glucose 119 H Calcium 9.3 Troponin I High Sens 567 H* Radiography Diagnostic Testing: Clinical Impression(s) from Imaging Studies Chest X-Ray 04/26/24 19:10 IMPRESSION: No radiographic evidence of acute cardiopulmonary disease. Electronically Signed: Julio César Salas MD at 19:48 EDT , Rhythm Strip Rhythm Strip: Sinus Rhythm Rate: 56 Ectopy: None EKG Initial EKG: Attestation: I personally reviewed and interpreted this EKG as follows: Interpretation: Sinus Bradycardia Comments: Sinus bradycardia at a rate of 56 bpm Normal axis Normal intervals Normal ST segments There is some subtle morphology change of the T wave in V2 that is nonspecific Prior EKG tracings: available for review Prior: Changed (Subtle morphology changes in V2 compared to prior EKGs) Management Discussion w/another healthcare provider: Hospitalist and Casing Builder (Cardiology) Discharge Plan Dx/Rx/DC Orders Clinical Impression: NSTEMI, initial episode of care, Chest pain Disposition Disposition: Acute Care Hospital [facility] Discharge Date/Time: 04/26/24 22:32
--- NOTE | 2024-04-26 19:10 | RAD_ITS ---
EXAM: XR CHEST, 1 VIEW CLINICAL INDICATION: chest pain TECHNIQUE: Frontal view of the chest. COMPARISON: 6.10.12 FINDINGS: LUNGS AND PLEURAL SPACES: Unremarkable. No consolidation or edema. No pneumothorax. No effusion. HEART: Unremarkable. Cardiac silhouette not enlarged. MEDIASTINUM: Central airways and mediastinal contour are unremarkable. BONES/JOINTS: Unremarkable. No acute fracture. SOFT TISSUES: Unremarkable. RAD/Chest 1 View (Portable) IMPRESSION: No radiographic evidence of acute cardiopulmonary disease. Electronically Signed: Julio César Salas MD at 19:48 EDT ,
--- NOTE | 2024-04-26 19:15 | EKG12_ITS ---
Test Reason : REPEAT EKG Blood Pressure : / mmHG Vent. Rate : 055 BPM Atrial Rate : 055 BPM P-R Int : 192 ms QRS Dur : 084 ms QT Int : 432 ms P-R-T Axes : -16 -21 020 degrees QTc Int : 413 ms Sinus bradycardia Low voltage QRS Inferior infarct , age undetermined Abnormal ECG Confirmed by ASHOK ALVAREZ, REI ([id number]), newspaper managing editor VASILE HENRY ([id number]) on 04/27/2024 12:50:02 PM Referred By: YAKOV Confirmed By:REI PULIDO MD
[2024-04-26] MEDS: Nitroglycerin SL (ED/IMG/CATH) 0.4 MG TABLET SL (19:30)
[2024-04-26 19:37] LABS: Absolute Lymphocyte Count 3.54 X10^3/uL (0.83-4.51); Absolute Neutrophil Count 5.4 X10^3/uL (2.0-7.7); Basophil# 0.07 X10^3/uL; Basophil% 0.7 % (0-1); Eosinophil# 0.29 X10^3/uL; Eosinophils% 2.8 % (0-5); Hematocrit 42.8 % (37-47); Hemoglobin 14.4 g/dL (12.0-15.0); Lymphocyte # 3.54 X10^3/ul (0.83-4.51); Lymphocyte % 34.3 % (19-41); Mean Corp Hgb Conc 33.6 g/dL (32-36); Mean Corpuscular Hgb 32.7 pg (27.0-32.0); Mean Corpuscular Volume 97.3 fL (81-99); Mean Platelet Vol. 9.7 fl (6.2-12.0); Monocyte% 9.7 % (0-10); NRBC Flagged by Analyzer 0 % (0-5); Neutrophil % 52.3 % (47-70); Platelet Count 246 K/mm3 (150-450); RBC Distribution Width CV 14.2 % (11.6-14.6); RBC Distribution Width SD 51.2 fl (35.1-43.9); White Blood Count 10.3 K/mm3 (4.4-11.0)
[2024-04-26] MEDS: Aspirin 81 MG TAB.CHEW 162 MG PO (19:42)
[2024-04-26 19:59] LABS: Anion Gap 8 (5-15); BUN 29 mg/dL (7-18); BUN/Creat Ratio 23.8 RATIO (10-20); Calcium,Total 9.3 mg/dL (8.5-10.1); Chloride 101 mmol/L (98-107); Creatinine, Serum 1.22 mg/dL (0.55-1.02); EST Glomerular Filtration Rate 46 mL/min (>60); Est Glom Filt Rate - Afr Amer 56 mL/min (>60); Estimated Creatinine Clearance 45.11 ml/min; Glucose 119 mg/dL (74-106); Potassium 3.9 mmol/L (3.5-5.1); Sodium Level 134 mmol/L (136-145); Troponin-I HS (w/2H Reflex) 567 pg/mL (3.0-54.0)
[2024-04-26] MEDS: Heparin Injection (Vial) 5,000 UNIT/ML VIAL 4000 UNIT IV (20:29)
[2024-04-26] MEDS: HEPARIN/D5w 25,000 UNITS 25,000 UNITS/250 ML IV.SOLN. 10 UNITS CONT INF ×2 (20:32→23:32)
[2024-04-26 21:15] LABS: International Normalized Ratio 1.1; Partial Thromboplast Time 27.4 Seconds (24.1-36.2); Prothrombin Time (Protime)PT. 13.7 SECONDS (11.7-14.9)
--- NOTE | 2024-04-26 21:21 | HP.PCM.HOS_ITS ---
HPI - General General Date of Admission: 04/26/24 Date of Service: 04/26/24 Chief Complaint: Chest pain, Nausea, Diaphoresis, LH/Dizziness. 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 difficile colitis, Hx NSTEMI w/ normal appearing cardiac catheterization felt secondary to vasospasms who presents to the [facility] ED on 04/26/24 with chest discomfort starting approximately 30 minutes prior to ED arrival noted to be midsternal described as an elephant sitting on her chest with associated diaphoresis, nausea and dry heaving but no actual emesis with oral intake just prior to this onset with radiation of discomfort into her bilateral throat but not up into the jaw with also lightheadedness/dizziness starting initially after she got out of the car to walk towards the [place] and continuing rated 10 out of 10 in severity when it occurred and prior to this in her normal state of health but given ongoing prompted ED evaluation. In the ED she notes complete resolution of chest discomfort following ED administration of medications. She notes that she took 81 mg of aspirin at approximately 2:30 PM on day of presentation. Most recent cardiology visit with Dr. Manzo 01/07/24 will continue medical management that time with description of NSTEMI 07/2017 with cardiac catheterization with EF 60%, anterior hypokinesis, LAD with mild luminal irregularities, less than 30% circumflex narrowed and right coronary arteries were noted to be angiographically normal with significant life stress events around that event of note. She notes she is taking her medication including her aspirin therapy. Workup in the ED included T97.2 Temporally, heart rate 58, BP 131/79, respiratory rate 16, 97% room air, CBC with WBC 10.3, hemoglobin 14.4, platelet 246 without marked shift, BMP with sodium 134, BUN/creatinine 29/1.22, GFR 46, glucose 119, troponin initial 567, chest x-ray with no acute cardiopulmonary findings, EKG with sinus bradycardia with very subtle change in T wave in V2 nonspecific with repeat resolution and similar to previous EKGs. In the ED patient administered aspirin 162 mg p.o. x 1, sublingual nitroglycerin and initiated on heparin drip. ED discussed case with Dr. Prabhakar Cardiology. [facility] Medical History Recurrent Clostridioides difficile diarrhea Hammer toe TIA (transient ischemic attack) Psoriasis Thyroid disease GERD (gastroesophageal reflux disease) Osteopenia Neuropathy Carpal tunnel syndrome Arthritis Atherosclerosis of coronary artery of [place] heart without angina pectoris Non-STEMI (non-ST elevated myocardial infarction) (~07/2017) Hypertension Hyperlipidemia Home Medications ?Medication ?Instructions ?Recorded ?Last Taken ?Type aspirin 81 mg chewable tablet 81 mg PO DAILY@0800 ##90 07/26/17 01/12/24 Rx cholecalciferol (vitamin D3) 125 125 mcg PO DAILY 07/04/21 01/12/24 History mcg (5,000 unit) tablet atorvastatin 20 mg tablet 20 mg PO QHS #90 tabs 05/13/23 01/11/24 Rx levothyroxine 75 mcg tablet 75 mcg PO DAILY #90 tabs 09/11/23 01/12/24 Rx lisinopril 20 0.5 tab PO DAILY #90 tabs 11/28/23 01/12/24 Rx mg-hydrochlorothiazide 12.5 mg tablet trazodone 50 mg tablet 75 mg PO QHS PRN insomnia 01/07/24 01/11/24 History alendronate 35 mg tablet 35 mg PO MO 01/12/24 01/06/24 History estradiol 0.01% (0.1 mg/gram) 1 g vaginal .COMPLEX 01/12/24 Unknown History vaginal cream famotidine 20 mg tablet (Acid 20 mg PO DAILY PRN heartburn 01/12/24 Unknown History Controller) psyllium husk 0.52 gram capsule 0.52 g PO DAILY 01/12/24 Unknown History (Daily Fiber) vitamin B complex (Complex B-100 1 tab PO DAILY 01/12/24 01/12/24 History tablet,extended release) vancomycin 125 mg capsule 125 mg PO DIRECTED #60 caps 03/26/24 Unknown Rx metoprolol tartrate 25 mg tablet 12.5 mg (1/2 x 25 mg) PO BID #90 03/31/24 Unknown Rx tabs Allergy/AdvReac Type Severity Reaction Status Date / Time Sulfa (Sulfonamide Allergy Rash Verified 04/26/24 18:51 Antibiotics) Family History Brother Alcoholism Myocardial infarction Kidney disease Multiple myeloma Mother Arthritis Blood clot in vein Father Cancer Renal & Skin Kidney disease Surgical History History of left knee replacement History of colonoscopy (07/02/17) History of tubal ligation History of tonsillectomy and adenoidectomy History of hysterectomy History of carpal tunnel surgery of right wrist History of bladder suspension procedure History of foot surgery Social History household members: spouse Smoking Status: Never smoker second hand exposure: No alcohol intake: current alcohol intake frequency: a few times a week Alcohol type: wine substance use type: does not use caffeine: Yes frequency: 3-4 times per week ROS ROS Narrative Admission Review of Systems: CONSTITUTIONAL: No weight loss, fever, chills, + weakness or fatigue. HEENT: + LH/Dizziness, discomfort into BL neck. Eyes: No visual loss, blurred vision, double vision or yellow sclerae. Ears, Nose, Throat: No hearing loss, sneezing, congestion, runny nose or sore throat. SKIN: No rash or itching, lesions, wounds. CARDIOVASCULAR: + Chest pain, dizziness/LH. No palpitations, edema, orthopnea, syncopal events. RESPIRATORY: No shortness of breath, cough or sputum, wheezing, hemoptysis. GASTROINTESTINAL: + Anorexia, nausea, dry heaving. No diarrhea, abdominal pain, melena, BRBPR. GENITOURINARY: No dysuria, frequency, urgency or retention. NEUROLOGICAL: + LH/Dizziness. No headache, dizziness, syncope, paralysis, ataxia, numbness or tingling in the extremities, focal weakness, change in bowel or bladder control, seizure. MUSCULOSKELETAL: + muscle, back pain, joint pain or stiffness. HEMATOLOGIC: No anemia, bleeding or bruising. LYMPHATICS: No enlarged nodes. No history of splenectomy. PSYCHIATRIC: No history of depression or anxiety. ENDOCRINOLOGIC: No reports of sweating, cold or heat intolerance. No polyuria or polydipsia. ALLERGIES: No history of asthma, hives, eczema or rhinitis. Vital Signs Vital Signs Vital Signs: 04/26/24 18:45 04/26/24 18:54 04/26/24 19:02 Temperature 97.2 F L Temperature Source Temporal Pulse Rate 58 L Respiratory Rate 16 Respiratory Effort Normal Blood Pressure 131/79 H Blood Pressure Mean 96 Pulse Ox 97 98 Oxygen Delivery Method Room Air Room Air 04/26/24 19:30 04/26/24 20:05 04/26/24 21:00 Temperature Temperature Source Pulse Rate 58 L 67 Respiratory Rate 19 H 17 Respiratory Effort Blood Pressure 124/74 H 105/62 122/86 H Blood Pressure Mean 76 98 Pulse Ox 96 96 Oxygen Delivery Method Weight Weight: 195 lb Body Mass Index (BMI) 32.4 Physical Exam Narrative Physical Examination: General: Awake, alert, oriented x 3 and cooperative, seated upright in the ED bed in no apparent distress, notes currently complete resolution of chest discomfort. Skin: Normal color, normal turgor, no icterus, no cyanosis. HEENT: AT/NC, EOMI, PERRLA, mildly dry MM, no carotid bruits or JVD noted. Lungs: Mildly diminished, greater bases, appropriate effort, no rales, ronchi or wheezing. Heart: Mildly bradycardic with regular rhythm; no gallop, rub audible. Abdomen: Soft, obese, NTTP, ND, normal BS, no appreciated HSM. Extremities: No cyanosis, clubbing, or edema. Neurological: Patient awake, alert, oriented as noted, cognitive function intact; pupils equally reactive to light and accommodation, cranial nerves gross normal, moving all 4 extremities, no focal deficits, strength moderately globally decreased secondary to acute complaints Psychiatric: Affect appears flat, fatigued, notes chest discomfort currently resolved, no acute evidence of depressive or anxiety feelings. Results Lab / Micro Data 04/26/24 18:57 04/26/24 18:57 Labs: Laboratory Results - last 24 hr 04/26/24 18:57: WBC 10.3, RBC 4.40, Hgb 14.4, Hct 42.8, MCV 97.3, MCH 32.7 H, MCHC 33.6, RDW Std Deviation 51.2 H, RDW Coeff of Tory 14.2, Plt Count 246, MPV 9.7, Immature Gran % (Auto) 0.200, Neut % (Auto) 52.3, Lymph % (Auto) 34.3, [place] % (Auto) 9.7, Eos % (Auto) 2.8, Baso % (Auto) 0.7, Absolute Neuts (auto) 5.4, Absolute Lymphs (auto) 3.54, Nucleated RBC % 0, PT 13.7, INR 1.1, APTT 27.4, S odium 134 L, Potassium 3.9, Chloride 101, Carbon Dioxide 25.0, Anion Gap 8, BUN 29 H, Creatinine 1.22 H, Estim Creat Clear Calc 45.11, Est GFR (MDRD) Af Amer 56 L, Est GFR (MDRD) Non-Af 46 L, BUN/Creatinine Ratio 23.8 H, Glucose 119 H, Calcium 9.3, Troponin I High Sens 567 H* Rhythm Strip Rhythm Strip: Sinus Rhythm Rate: 56 Ectopy: None Imaging Radiology Impression Chest X-Ray 04/26/24 19:10 IMPRESSION: No radiographic evidence of acute cardiopulmonary disease. 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 difficile colitis, Hx NSTEMI w/ normal appearing cardiac catheterization felt secondary to vasospasms who presents to the [facility] ED on 04/26/24 with chest discomfort starting approximately 30 minutes prior to ED arrival noted to be midsternal described as an elephant sitting on her chest with associated diaphoresis, nausea and dry heaving but no actual emesis with oral intake just prior to this onset with radiation of discomfort into her bilateral throat but not up into the jaw with also lightheadedness/dizziness starting initially after she got out of the [place] and continuing rated 10 out of 10 in severity when it occurred and prior to this in her normal state of health but given ongoing prompted ED evaluation. #1. Chest Pain w/ Acute NSTEMI, presumed type I: EKG with sinus bradycardia with very subtle change in T wave in V2 nonspecific with repeat resolution and similar to previous EKGs, CXR w/ no acute cardiopulmonary findings. Trop elevated, 567 initial. Will admit to PCU, maintain on a monitored bed, continue serial cardiac enzymes and EKGs. Obtain magnesium level upon admission. Continue heparin drip. Continue medical management w/ asa, BB, statin w/ AM FLP. ECHO requested. Cardiology consulted. Will continue judicious hydration overnight with n.p.o. status at midnight for possible cardiac catheterization. #2. History of TIA: Will continue aspirin, statin, hypertensive regimen as noted, no diabetic history reported. #3. Chronic normocytic anemia: Admission hemoglobin 14.4, MCV 97.3, previous baseline had been primarily since December [id number] but has since improved, last noted prior to current presentation 02/12/24 hemoglobin 13.8, continue to trend. #4. Hypertension: Continue home regimen including metoprolol, lisinopril, hydrochlorothiazide, PRN hydralazine. #5. Hyperlipidemia: Continue home statin regimen. AM FLP. #6. Hx Clostridium C. difficile colitis, recurrent episodes: Last episode noted 02/2024 treated with oral vancomycin, avoiding a antibiotic therapy as able. Continue lactobacillus. #7. GERD: We will continue patient on famotidine regimen however given underlying C. difficile colitis history would benefit from transitioning off for gut biome. #8. Hypothyroidism: We will continue patient home levothyroxine regimen. #9. Chronic insomnia: We will continue patient home q HS trazodone regimen. #10. Obesity: Weight loss and lifestyle changes encouraged. #11. DVT prophylaxis: Maintain on Heparin drip. #12. CODE status: Patient healthcare power of managing attorney is her who is present and living will is in place. Full Code status. Charges/Coding Visit Charges Inpatient E&M: 94474 Init Hosp L3
[2024-04-26 21:22] LABS: Reflex Troponin-HS? (from REC) Y
--- NOTE | 2024-04-26 21:29 | EKG12_ITS ---
Test Reason : CP ADMIT Blood Pressure : / mmHG Vent. Rate : 061 BPM Atrial Rate : 061 BPM P-R Int : 184 ms QRS Dur : 080 ms QT Int : 420 ms P-R-T Axes : -09 -17 015 degrees QTc Int : 422 ms Normal sinus rhythm Inferior infarct , age undetermined Abnormal ECG When compared with ECG of 26-APR-2024 19:42, MANUAL COMPARISON REQUIRED, DATA IS UNCONFIRMED Confirmed by ASHOK ALVAREZ, REI ([id number]), communications editor SHIRIN PAGAN ([id number]) on 04/27/2024 2:51:02 PM Referred By: PATTIE Confirmed By:REI PULIDO MD
[2024-04-26 21:54] LABS: Magnesium 1.8 mg/dL (1.6-2.6); Troponin-I HS 1843 pg/mL (3.0-54.0)
--- NOTE | 2024-04-26 22:11 | ED.RN ---
3 UNSUCCESSFUL ATTEMPTS FOR 2ND IV ACCESS.
[2024-04-26] MEDS: 0.9% Normal Saline (1000mL) 1,000 ML 100 ML IV ×2 (22:19→23:21)
--- NOTE | 2024-04-26 23:05 | ECHOL_ITS ---
Reason For Study: NSTEMI Procedure This was a limited 2D transthoracic echocardiogram. Exam performed portable in patient room. Left Ventricle Normal LV size. The left ventricular ejection fraction is 45 %. Stage 1 diastolic dysfunction. Anterior [place] : Hypokinetic. There are regional wall motion abnormalities as specified. Right Ventricle Normal RV size. Normal systolic function. Atria Normal left atrium. Normal right atrium. Mitral Valve Normal mitral valve. Tricuspid Valve Normal tricuspid valve. Mild tricuspid valve insufficiency. Pulmonary artery systolic pressure is 26 mmHg. Aortic Valve Trisinus/trileaflet aortic valve. Pulmonic Valve Normal pulmonic valve. Great Vessels Normal aortic root. The pulmonary artery is normal size. Pericardium/Pleural No pericardial effusion. MMode/2D Measurements & Calculations LVIDd: 4.4 cm IVSd: 1.1 cm LVOT diam: 2.0 cm LVIDs: 3.2 cm LVPWd: 0.88 cm LVOT area: 3.1 cm2 RVDd: 3.7 cm FS: 26.3 % Ao root diam: 3.3 cm LAV(MOD-bp): 58.3 ml LVAd ap4: 27.0 cm2 LAV(MOD-bp) Indexed: 29.5 ml/m2 LVLd ap4: 8.0 cm LAV(MOD-sp2): 56.8 ml EDV(MOD-sp4): 74.2 ml LAV(MOD-sp4): 60.5 ml EDV(sp4-el): 77.1 ml LVAs ap4: 17.8 cm2 LVLs ap4: 7.1 cm ESV(MOD-sp4): 36.6 ml ESV(sp4-el): 37.6 ml EF(MOD-sp4): 50.6 % EF(sp4-el): 51.2 % LVAd ap2: 25.8 cm2 SV(MOD-sp4): 37.6 ml SV(MOD-sp2): 40.7 ml LVLd ap2: 7.7 cm EDV(MOD-sp2): 70.7 ml EDV(sp2-el): 73.6 ml LVAs ap2: 15.4 cm2 LVLs ap2: 6.5 cm ESV(MOD-sp2): 30.0 ml ESV(sp2-el): 30.9 ml EF(MOD-sp2): 57.5 % SV(sp4-el): 39.5 ml LA dimension(2D): 3.8 cm LA A4 area: 21.3 cm2 RA A4 area: 15.5 cm2 Time Measurements MV dec time: 0.29 sec Doppler Measurements & Calculations MV E max ezio: 71.9 cm/sec Lat Peak E' Ezio: 11.4 cm/sec Med Peak E' Ezio: 9.0 cm/sec MV A max ezio: 93.7 cm/sec E/E' lat: 6.3 E/E' med: 8.0 MV E/A: 0.77 Ao V2 max: 133.0 cm/sec TR max ezio: 244.0 cm/sec MV dec slope: 245.2 cm/sec2 Ao max P.1 mmHg TR max P.8 mmHg Ao V2 mean: 91.3 cm/sec Ao mean P.9 mmHg Ao V2 VTI: 28.9 cm ECHO/Echo, Limited Study Interpretation Summary The left ventricular ejection fraction is 45 %. Normal LV size. Pulmonary artery systolic pressure is 26 mmHg. Stage 1 diastolic dysfunction. Ordering Physician: Liliya Ballard Referring Physician: Jodie Yanes M.D. Performed By: Therese Gilliam RDCS and Student
[2024-04-26] MEDS: traZODone 50 MG Tablet 75 MG PO (23:20)
[2024-04-26] MEDS: Atorvastatin Calcium 20 MG Tablet PO (23:29)
[2024-04-26] MEDS: Metoprolol Tartrate 25 MG Tablet 12.5 MG PO (23:30)
[2024-04-27] VITALS (14 sets, daily range): BP systolic 91–127; BP diastolic 51–77; PULSE 49–67; RESP 15–18; TEMP 36.6–36.8; O2SAT 93–98
[2024-04-27] MEDS: fentaNYL 100 MCG/2 ML Ampul 25 MCG IV (01:32)
[2024-04-27 01:38] LABS: Troponin-I HS 12597 pg/mL (3.0-54.0)
[2024-04-27 04:00] LABS: Absolute Lymphocyte Count 2.02 X10^3/uL (0.83-4.51); Absolute Neutrophil Count 5.3 X10^3/uL (2.0-7.7); Basophil# 0.04 X10^3/uL; Basophil% 0.5 % (0-1); Eosinophil# 0.24 X10^3/uL; Eosinophils% 2.8 % (0-5); Hemoglobin 12.9 g/dL (12.0-15.0); Lymphocyte # 2.02 X10^3/ul (0.83-4.51); Lymphocyte % 23.6 % (19-41); Mean Corp Hgb Conc 33.9 g/dL (32-36); Mean Corpuscular Hgb 32.7 pg (27.0-32.0); Mean Corpuscular Volume 96.4 fL (81-99); Mean Platelet Vol. 9.1 fl (6.2-12.0); Monocyte# 0.92 X10^3/uL; Monocyte% 10.7 % (0-10); NRBC Flagged by Analyzer 0 % (0-5); Neutrophil # 5.32 X10^3/uL (2.7-7.7); Neutrophil % 62.2 % (47-70); Platelet Count 219 K/mm3 (150-450); RBC Distribution Width CV 14.3 % (11.6-14.6); RBC Distribution Width SD 50.4 fl (35.1-43.9); Red Blood Count 3.94 M/mm3 (4.2-5.4); White Blood Count 8.6 K/mm3 (4.4-11.0)
[2024-04-27 04:32] LABS: ALB/GLOB Ratio 0.9 RATIO (0.9-2.4); AST(SGOT) 75 U/L (15-37); Alanine Aminotransfer ALT/SGPT 33 U/L (13-56); Albumin, Serum 2.8 g/dL (3.2-5.0); Alkaline Phosphatase 44 U/L (45-117); Anion Gap 6 (5-15); BUN 22 mg/dL (7-18); BUN/Creat Ratio 25.8 RATIO (10-20); Calcium,Total 8.7 mg/dL (8.5-10.1); Chloride 103 mmol/L (98-107); Cholesterol 145 mg/dL (200); Creatinine, Serum 0.85 mg/dL (0.55-1.02); EST Glomerular Filtration Rate 69 mL/min (>60); Est Glom Filt Rate - Afr Amer 84 mL/min (>60); Estimated Creatinine Clearance 65.73 ml/min; Globulin 3.1 g/dL (2.2-4.2); Glucose 113 mg/dL (74-106); High Density Lipoprotein 64 mg/dL; Potassium 3.6 mmol/L (3.5-5.1); Protein, Total 5.9 g/dL (6.4-8.2); Sodium Level 134 mmol/L (136-145); Triglycerides 83 mg/dL; Very Low Density Lipoprotein 17 mg/dL (5-40)
[2024-04-27] MEDS: Levothyroxine 75 MCG Tablet PO (06:43)
[2024-04-27] MEDS: Metoprolol Tartrate 25 MG Tablet 12.5 MG PO (07:20)
[2024-04-27] MEDS: Aspirin 81 MG TAB.CHEW PO (07:20)
[2024-04-27] MEDS: Lisinopril 10 MG Tablet PO (07:20)
--- NOTE | 2024-04-27 08:04 | CON.PCM.CA_ITS ---
Assessment & Plan Assessment/Plan (1) NSTEMI, initial episode of care: PLAN: She presents with a non-ST elevation myocardial infarction. The exact precipitating factor is unclear. The above may be secondary to plaque rupture. She has been on heparin overnight as well as aspirin. My recommendations will be as follows: Continue beta-karma Continue high intensity statin Continue aspirin Scheduled for cardiac catheterization this morning and depending on the results further recommendations will be made. Addendum: Cardiac catheterization this morning demonstrated the following: Left main coronary artery noted to be normal. Left anterior descending artery with no significant stenosis. Left circumflex artery with no significant stenosis but slow flow. Dominant right coronary artery with proximal 40% stenosis and no significant distal disease. Left ventricular ejection fraction reduced approximately 30 to 35% with severe hypokinesis of the mid anterior wall apex and inferoapical wall. The above is consistent with a Takotsubo cardiomyopathy. Will manage with expectant therapy. HPI Consult Data Date of Consult: 04/27/24 HPI Narrative HPI Narrative: ROMERO PONCE, is a 74 F who presents with chest discomfort which she describes as a heavy sensation which started just before she went to the [facility]. She says that she persisted went on and as she was walking she got more discomfort and then dizzy as well as nauseated and diaphoretic. She decided to present to the emergency room. In the emergency room she was evaluated her EKG was noted to be normal but her cardiac enzymes were abnormal. She was admitted and cardiology was consulted for further evaluation and management. She does have a history of a non-ST elevation myocardial infarction in July 2017 during which time she had a cardiac catheterization with demonstrated luminal irregularities in the LAD and the circumflex and the right coronary artery. She has had some ankle issues but no other cardiac problems. She denies any dizziness or diaphoresis near syncope or syncope. She is also had bilateral knee replacements. [facility] Medical History Recurrent Clostridioides difficile diarrhea Hammer toe TIA (transient ischemic attack) Psoriasis Thyroid disease GERD (gastroesophageal reflux disease) Osteopenia Neuropathy Carpal tunnel syndrome Arthritis Atherosclerosis of coronary artery of [place] heart without angina pectoris Non-STEMI (non-ST elevated myocardial infarction) (~07/2017) Hypertension Hyperlipidemia Home Medications ?Medication ?Instructions ?Recorded ?Last Taken ?Type aspirin 81 mg chewable tablet 81 mg PO DAILY@0800 ##90 07/26/17 04/26/24 Rx cholecalciferol (vitamin D3) 125 125 mcg PO DAILY 07/04/21 01/12/24 History mcg (5,000 unit) tablet atorvastatin 20 mg tablet 20 mg PO QHS #90 tabs 05/13/23 04/26/24 Rx levothyroxine 75 mcg tablet 75 mcg PO DAILY #90 tabs 09/11/23 04/26/24 Rx lisinopril 20 0.5 tab PO DAILY #90 tabs 11/28/23 04/26/24 Rx mg-hydrochlorothiazide 12.5 mg tablet trazodone 50 mg tablet 50 mg PO QHS PRN insomnia 01/07/24 04/26/24 History estradiol 0.01% (0.1 mg/gram) 1 g vaginal .COMPLEX 01/12/24 Unknown History vaginal cream psyllium husk 0.52 gram capsule 0.52 g PO DAILY bm 01/12/24 04/26/24 History (Daily Fiber) vitamin B complex (Complex B-100 1 tab PO DAILY 01/12/24 01/12/24 History tablet,extended release) metoprolol tartrate 25 mg tablet 12.5 mg (1/2 x 25 mg) PO BID #90 03/31/24 04/26/24 Rx tabs Allergy/AdvReac Type Severity Reaction Status Date / Time Sulfa (Sulfonamide Allergy Rash Verified 04/26/24 18:51 Antibiotics) Family History Brother Alcoholism Myocardial infarction Kidney disease Multiple myeloma Mother Arthritis Blood clot in vein Father Cancer Renal & Skin Kidney disease Surgical History History of left knee replacement History of colonoscopy (07/02/17) History of tubal ligation History of tonsillectomy and adenoidectomy History of hysterectomy History of carpal tunnel surgery of right wrist History of bladder suspension procedure History of foot surgery Social History household members: spouse Smoking Status: Never smoker second hand exposure: No alcohol intake: current alcohol intake frequency: a few times a week Alcohol type: wine substance use type: does not use caffeine: Yes frequency: 3-4 times per week ROS Constitutional Constitutional: Denies fever(s) or weight loss Eyes Eyes: Reports systems reviewed and no addt'l complaints, except as documented ENT HEENT: Reports systems reviewed and no addt'l complaints, except as documented Cardiovascular Cardiovascular: Reports chest pain at rest, chest pain with activity, dyspnea at rest and dyspnea on exertion; Denies edema, palpitations or paroxysmal nocturnal dyspnea Respiratory/Chest Respiratory/Chest: Denies dyspnea on exertion, productive cough, shortness of breath at rest or shortness of breath with exertion Gastrointestinal Gastrointestinal: Denies change in bowel habits, nausea, vomiting or weight changes Genitourinary Genitourinary: Denies difficulty urinating Musculoskeletal Musculoskeletal: Denies joint stiffness or muscle weakness Integumentary Integumentary: Denies lesions Neurologic Neurologic: Denies dizziness or syncope Psychiatric Psychiatric: Denies anxiety Endocrine Endocrinology: Denies excessive sweating or fatigue Hematologic/Lymphatic Hematologic/Lymphatic: Denies anemia Allergic/Immunologic Allergic/Immunologic: Denies seasonal rhinorrhea Physical Exam Const alert, oriented x3 and no apparent distress General Appearance: cooperative HEENT hearing grossly normal bilaterally Head and Scalp: atraumatic Eyes EOMs intact bilaterally Neck General: normal visual inspection Chest inspection of chest normal and palpation of chest normal Resp normal respiratory effort Auscultation: clear to auscultation bilaterally Cardio regular rate, regular rhythm, S1 normal heart sound and S2 normal heart sound Jugular Venous Distention: JVD GI normal to inspection, nondistended, normoactive bowel sounds Extremity normal capillary refill and no pedal edema Peripheral Pulses: Yes pulses 2+ throughout and femoral pulses present Skin no rashes or lesions noted Neuro oriented x3 and CN's II-XII intact bilaterally Psych Appearance: grossly normal and appropriate Risk Stratification Risk Stratification Applicable: Yes Age >/= 65: Yes >/= 3 CAD Risk Factors (HTN, HLD, DM, family hx of CAD, or current smoker): No Aspirin Use in the Past 7 Days: Yes Severe Angina (>/= episodes in 24 hours): Yes EKG ST Changes >/= 0.5mm: No Positive Cardiac Marker: Yes KIT Risk Stratification Score: 4 KIT % Risk: 20% Risk Objective Data Vital Signs: Vital Signs Temp Pulse Resp BP Pulse Ox O2 Del Method 97.9 F 55 L 16 127/75 H 96 Room Air 04/27/24 07:37 04/27/24 07:37 04/27/24 07:37 04/27/24 07:37 04/27/24 07:37 04/27/24 07:49 Oxygen Delivery Method Room Air Weight: 200 lb 13.458 oz Body Mass Index (BMI) 33.4 Intake & Output: Intake and Output for Last 24 Hours 04/25/24 04/26/24 04/27/24 23:59 23:59 23:59 Intake Total 168.17 / 668.17 551.17 / 551.17 Balance 168.17 / 668.17 551.17 / 551.17 Lab / Micro Data 04/27/24 03:35 04/27/24 03:35 Labs: Laboratory Results - last 24 hr 04/26/24 18:57: WBC 10.3, RBC 4.40, Hgb 14.4, Hct 42.8, MCV 97.3, MCH 32.7 H, MCHC 33.6, RDW Std Deviation 51.2 H, RDW Coeff of Tory 14.2, Plt Count 246, MPV 9.7, Immature Gran % (Auto) 0.200, Neut % (Auto) 52.3, Lymph % (Auto) 34.3, [place] % (Auto) 9.7, Eos % (Auto) 2.8, Baso % (Auto) 0.7, Absolute Neuts (auto) 5.4, Absolute Lymphs (auto) 3.54, Nucleated RBC % 0, PT 13.7, INR 1.1, APTT 27.4, S odium 134 L, Potassium 3.9, Chloride 101, Carbon Dioxide 25.0, Anion Gap 8, BUN 29 H, Creatinine 1.22 H, Estim Creat Clear Calc 45.11, Est GFR (MDRD) Af Amer 56 L, Est GFR (MDRD) Non-Af 46 L, BUN/Creatinine Ratio 23.8 H, Glucose 119 H, Calcium 9.3, Troponin I High Sens 567 H* 04/26/24 21:25: Magnesium 1.8, Troponin I High Sens 1843 H* 04/27/24 01:05: Troponin [place] 25894 H* 04/27/24 03:35: WBC 8.6, RBC 3.94 L, Hgb 12.9, Hct 38.0, MCV 96.4, MCH 32.7 H, MCHC 33.9, RDW Std Deviation 50.4 H, RDW Coeff of Tory 14.3, Plt Count 219, MPV 9.1, Immature Gran % (Auto) 0.200, Neut % (Auto) 62.2, Lymph % (Auto) 23.6, [place] % (Auto) 10.7 H, Eos % (Auto) 2.8, Baso % (Auto) 0.5, Absolute Neuts (auto) 5.3, Absolute Lymphs (auto) 2.02, Nucleated RBC % 0, APTT 92.0 H*, Sodium 134 L, Potassium 3.6, Chloride 103, Carbon Dioxide 25.0, Anion Gap 6, BUN 22 H, Creatinine 0.85, Estim Creat Clear Calc 65.73, Est GFR (MDRD) Af Amer 84, Est GFR (MDRD) Non-Af 69, BUN/Creatinine Ratio 25.8 H, Glucose 113 H, Calcium 8.7, Total Bilirubin 0.70, AST 75 H, ALT 33, Alkaline Phosphatase 44 L, Total Protein 5.9 L, Albumin 2.8 L, Globulin 3.1, Albumin/Globulin Ratio 0.9, Triglycerides 83, Cholesterol 145, LDL Cholesterol 64, VLDL Cholesterol 17, HDL Cholesterol 64 Rhythm Strip Rhythm Strip: Sinus Rhythm Rate: 56 Ectopy: None Cardiology Labs/Tests 04/26/24 18:57: WBC 10.3, RBC 4.40, Hgb 14.4, Hct 42.8, MCV 97.3, MCH 32.7 H, MCHC 33.6, Plt Count 246, MPV 9.7, Immature Gran % (Auto) 0.200, Neut % (Auto) 52.3, Lymph % (Auto) 34.3, [place] % (Auto) 9.7, Eos % (Auto) 2.8, Baso % (Auto) 0.7, Absolute Neuts (auto) 5.4, Nucleated RBC % 0, PT 13.7, INR 1.1, APTT 27.4, Sodium 134 L, Potassium 3.9, Chloride 101, Carbon Dioxide 25.0, Anion Gap 8, BUN 29 H, Creatinine 1.22 H, Est GFR (MDRD) Af Amer 56 L, Est GFR (MDRD) Non-Af 46 L , BUN/Creatinine Ratio 23.8 H, Glucose 119 H, Calcium 9.3 04/26/24 21:25: Magnesium 1.8 04/27/24 03:35: WBC 8.6, RBC 3.94 L, Hgb 12.9, Hct 38.0, MCV 96.4, MCH 32.7 H, MCHC 33.9, Plt Count 219, MPV 9.1, Immature Gran % (Auto) 0.200, Neut % (Auto) 62.2, Lymph % (Auto) 23.6, [place] % (Auto) 10.7 H, Eos % (Auto) 2.8, Baso % (Auto) 0.5, Absolute Neuts (auto) 5.3, Nucleated RBC % 0, APTT 92.0 H*, Sodium 134 L, Potassium 3.6, Chloride 103, Carbon Dioxide 25.0, Anion Gap 6, BUN 22 H, Creatinine 0.85, Est GFR (MDRD) Af Amer 84, Est GFR (MDRD) Non-Af 69, B UN/Creatinine Ratio 25.8 H, Glucose 113 H, Calcium 8.7, Total Bilirubin 0.70, Triglycerides 83, Cholesterol 145, LDL Cholesterol 64, VLDL Cholesterol 17, HDL Cholesterol 64 Rhythm: EKG: ECHO: Stress Test: Cardiac Cath: PCI: CT Surgery: Holter monitor: EPS: PPM: CXR: Chest CT Scan: Radiography Diagnostic Testing: Radiology Impression Chest X-Ray 04/26/24 19:10 IMPRESSION: No radiographic evidence of acute cardiopulmonary disease. Electronically Signed: Julio César Salas MD at 19:48 EDT Reading Location ID and State: [facility] / [place] , Service support ,
--- NOTE | 2024-04-27 09:35 | CL.D_ITS ---
Patient Name: ROMERO PONCE Study Date: 04/27/2024 Performing: Dash Prabhakar MD Ht: 65 inches 165.1 cm : 1950 Wt: 200.84 lbs 91.1 kg Age: 74 Gender: female BSA: 1.98 PROCEDURE(S) PERFORMED DC01-(15070)LHC/COR/LV CLINICAL PROFILE AND INDICATIONS Indications: Suspected CAD Heart Failure: NYHA Class: 3 Stress/Imaging Stress/Image Study Performed: No CONCLUSIONS Minimal coronary artery disease. Cardiomyopathy: Takotsubo RECOMMENDATIONS Medical therapy DESCRIPTION OF PROCEDURE The patient arrived to the procedure lab. The risks and benefits of the procedure as well as a full description of our services here and current unavailability of surgical backup were fully explained to the patient and/or their significant other prior to the catheterization. The Timeout was completed, verifying the correct patient and procedure. The patient's procedural site was prepped and draped in the usual fashion. Local anesthetic was given subcutaneously to right radial region with Lidocaine 2%. Using a modified Seldinger technique, arterial access was obtained via the right radial artery, a 6Fr sheath was inserted. Left Coronary Artery selective angiography was performed in multiple views using a 5 Fr. 4.0 Ronald catheter. Right Coronary Artery selective angiography was then performed in multiple views using a 5 Fr. 4.0 Ronald catheter. Left Ventriculography was performed in KNIGHT projection using a 5 Fr. Pigtail catheter. LV to AO pullback pressures were then recorded.The arterial sheath was pulled and a TR Band was applied for hemostasis 11 ml of air CORONARY ANGIOGRAPHY DOMINANCE: Right Dominant LEFT HEART ASSESSMENT Left Ventricular Ejection Fraction: by LV Gram 35 % Anterior Hypokinesis - Severe. Apical Hypokinesis - Severe Consistent with Takotsubo cardiomyopathy. LEFT MAIN: Angiographically normal LEFT ANTERIOR DESCENDING ARTERY: Angiographically normal CIRCUMFLEX ARTERY: Angiographically normal RIGHT CORONARY ARTERY: Proximal smooth 40% stenosis COMPLICATIONS No Complications PROCEDURE MEDICATIONS Versed 1 mg IV Fentanyl 50 mcg IV Oxygen: 2 L/min via nasal cannula Heparin given IA 04/27/2024 08:58:28 IV Bolus: .9 NaCl 250 ml total 04/27/2024 09:03:36 IV Bolus: .9 NaCl 250 ml total 04/27/2024 09:03:36 SUMMARY OF HEMODYNAMIC DATA Time AIR REST ECG 08:44:37 AO 99/62 (78) SA 09:14:25 AO 90/54 (69) 09:15:48 AO 98/60 (77) 09:18:06 LV 97/10, 22 09:21:02 LV 84/11, 19 09:21:08 LV 87/10, 15 09:21:51 LVp 89/17, 27 09:22:04 AOp 93/55 (71) 09:22:09 Signed By Dash Prabhakar MD On 04/27/2024 09:33:58 Dash Prabhakar MD
[2024-04-27] MEDS: Psyllium 1 PACKET PO (11:06)
--- NOTE | 2024-04-27 11:29 | CASEMGMT ---
RN ANIYA Assessment Face to Face with patient for initial transition planning/care coordination assessment. RN ANIYA introduced self and role at [facility], pt voices understanding. Pt is A&Ox4 and is resting comfortably in bed and is calm. Pt at bedside. Care providers, pharmacy, and demographics verified. Admitting dx: NSTEMI LACE Strata: 2 PCP: Jodie Yanes Specialists: Patricio TREVINO (Ortho) Preferred Pharmacy: [facility] Insurance: [facility] A/B, [employer] Prescription Benefit: Yes LNOK: Igor Gray (H) Living Arrangements: Pt lives with her in a 2 story home with a FFSU and 3 steps to enter ADLs/IADLs: Ind Transportation: Self, . Denies concerns DME: Cane, Shower bench. Access to a BSC. Denies further needs at this time HHC/SNF: Denies history or needs Pt?s goal: Home Plan: Home no needs. 6-Click score is 24. Pt denies the need for HHC, OP Tx, SNF, or CCN/ pt Link. Pt states that she feels safe discharging home with her once she is medically ready and denies further questions or concerns. CM to follow for potential anticoagulant prescription. Report given to SLIDE FASTENER REPAIRER CM. Tami Cevallos RN, CM
--- NOTE | 2024-04-27 16:26 | PCM.PN.HOSP ---
Reason for Visit Reason for Visit: Diagnoses Non-ST elevation (NSTEMI) myocardial infarction (04/26/24) Subjective Subjective Patient seen post cath which showed Takotsubo cardiomyopathy, no shortness of breath at this time and no chest pain, no leg swelling Objective Data Objective Data Vital Signs: Vital Signs Temp Pulse Resp BP Pulse Ox O2 Del Method 98.0 F 67 18 109/59 L 97 Room Air 04/27/24 12:00 04/27/24 12:00 04/27/24 12:00 04/27/24 12:00 04/27/24 12:00 04/27/24 12:00 Oxygen Delivery Method Room Air Weight: 91.1 kg Body Mass Index (BMI) 33.4 Intake & Output: Intake and Output for Last 24 Hours 04/25/24 04/26/24 04/27/24 23:59 23:59 23:59 Intake Total 168.17 / 668.17 1857.37 / 1857.37 Balance 168.17 / 668.17 1857.37 / 1857.37 Lab / Micro Data 04/27/24 03:35 04/27/24 03:35 Labs: Laboratory Results - last 24 hr 04/26/24 18:57: WBC 10.3, RBC 4.40, Hgb 14.4, Hct 42.8, MCV 97.3, MCH 32.7 H, MCHC 33.6, RDW Std Deviation 51.2 H, RDW Coeff of Tory 14.2, Plt Count 246, MPV 9.7, Immature Gran % (Auto) 0.200, Neut % (Auto) 52.3, Lymph % (Auto) 34.3, [place] % (Auto) 9.7, Eos % (Auto) 2.8, Baso % (Auto) 0.7, Absolute Neuts (auto) 5.4, Absolute Lymphs (auto) 3.54, Nucleated RBC % 0, PT 13.7, INR 1.1, APTT 27.4, Sodium 134 L, Potassium 3.9, Chloride 101, Carbon Dioxide 25.0, Anion Gap 8, BUN 29 H, Creatinine 1.22 H, Estim Creat Clear Calc 45.11, Est GFR (MDRD) Af Amer 56 L, Est GFR (MDRD) Non-Af 46 L, BUN/Creatinine Ratio 23.8 H, Glucose 119 H, Calcium 9.3, Troponin I High Sens 567 H* 04/26/24 21:25: Magnesium 1.8, Troponin I High Sens 1843 H* 04/27/24 01:05: Troponin [place] 41764 H* 04/27/24 03:35: WBC 8.6, RBC 3.94 L, Hgb 12.9, Hct 38.0, MCV 96.4, MCH 32.7 H, MCHC 33.9, RDW Std Deviation 50.4 H, RDW Coeff of Tory 14.3, Plt Count 219, MPV 9.1, Immature Gran % (Auto) 0.200, Neut % (Auto) 62.2, Lymph % (Auto) 23.6, [place] % (Auto) 10.7 H, Eos % (Auto) 2.8, Baso % (Auto) 0.5, Absolute Neuts (auto) 5.3, Absolute Lymphs (auto) 2.02, Nucleated RBC % 0, APTT 92.0 H*, Sodium 134 L, Potassium 3.6, Chloride 103, Carbon Dioxide 25.0, Anion Gap 6, BUN 22 H, Creatinine 0.85, Estim Creat Clear Calc 65.73, Est GFR (MDRD) Af Amer 84, Est GFR (MDRD) Non-Af 69, BUN/Creatinine Ratio 25.8 H, Glucose 113 H, Calcium 8.7, Total Bilirubin 0.70, AST 75 H, ALT 33, Alkaline Phosphatase 44 L, Total Protein 5.9 L, Albumin 2.8 L, Globulin 3.1, Albumin/Globulin Ratio 0.9, Triglycerides 83, Cholesterol 145, LDL Cholesterol 64, VLDL Cholesterol 17, HDL Cholesterol 64 Radiography Diagnostic Testing: Radiology Impression Chest X-Ray 04/26/24 19:10 IMPRESSION: No radiographic evidence of acute cardiopulmonary disease. Electronically Signed: Julio César Salas MD at 19:48 EDT Reading Location ID and State: [facility] / [place] , Service support , Rhythm Strip Rhythm Strip: Sinus Rhythm Rate: 56 Ectopy: None Physical Exam Narrative General: Alert, oriented, no apparent distress HEENT: Atraumatic, normocephalic Eyes: Anicteric, normal conjunctiva, extraocular movements grossly intact Neck: Supple Respiratory: Clear to auscultation bilaterally, normal respiratory effort Cardiovascular: Regular rate and rhythm GI: Soft, nontender, nondistended Extremities: No edema Musculoskeletal: Moving all extremities Neuro: No overt focal neurological deficits Skin: No rashes appreciated Psych: Cooperative Assessment & Plan Assessment/Plan (1) NSTEMI, initial episode of care: PLAN: Plan # NSTEMI type II secondary to Takotsubo cardiomyopathy -Patient presented with chest pain with nonspecific EKG changes and troponin of 567 that increased over 12,000 -She was given aspirin and started on heparin drip -Patient underwent cardiac cath 04/27 which demonstrated no significant atherosclerotic disease but was found to have Takotsubo cardiomyopathy -Started on a beta-karma -Possible DC home tomorrow pending patient clinical course #Hypothyroidism -Continue Synthroid -Most recent TSH 1.3 on 01/20/2024 # Hypertension -Started on Coreg and home metoprolol discontinued -Patient also continued on her home lisinopril and hydrochlorothiazide -BP very well-controlled -Can always consider discontinuing hydrochlorothiazide if further blood pressure medication adjustments need to be made # History of insomnia -Trazodone as needed #DVT ppx: Lovenox subcu Beatris Atkins MD Time spent in the patient's overall evaluation,decision-making process, review of diagnostic data, adjustment of management, discussion with other providers, nursing nursing and ancillary staff involved in patient's care documentation, 36 minutes Charges/Coding Visit Charges Inpatient E&M: 41939 Subs Hosp L2
[2024-04-27] MEDS: Carvedilol 3.125 MG TABLET PO (17:17)
[2024-04-27] MEDS: traZODone 50 MG Tablet 75 MG PO (21:08)
[2024-04-27] MEDS: Atorvastatin Calcium 20 MG Tablet PO (21:09)
[2024-04-28 03:00] VITALS: BP 118/72; PULSE 62; RESP 16; TEMP 36.8; O2SAT 96
[2024-04-28] MEDS: Levothyroxine 75 MCG Tablet PO (05:26)
[2024-04-28 06:13] LABS: Hematocrit 39.1 % (37-47); Hemoglobin 13.1 g/dL (12.0-15.0); Mean Corp Hgb Conc 33.5 g/dL (32-36); Mean Corpuscular Hgb 32.8 pg (27.0-32.0); Mean Corpuscular Volume 97.8 fL (81-99); Mean Platelet Vol. 9.2 fl (6.2-12.0); Platelet Count 220 K/mm3 (150-450); RBC Distribution Width CV 14.6 % (11.6-14.6); RBC Distribution Width SD 53.2 fl (35.1-43.9); White Blood Count 8.1 K/mm3 (4.4-11.0)
[2024-04-28 06:33] LABS: Anion Gap 3 (5-15); BUN 12 mg/dL (7-18); BUN/Creat Ratio 13.3 RATIO (10-20); Calcium,Total 9.2 mg/dL (8.5-10.1); Chloride 106 mmol/L (98-107); EST Glomerular Filtration Rate 65 mL/min (>60); Est Glom Filt Rate - Afr Amer 79 mL/min (>60); Estimated Creatinine Clearance 62.08 ml/min; Glucose 114 mg/dL (74-106); Sodium Level 136 mmol/L (136-145)
[2024-04-28 09:00] VITALS: BP 117/78; PULSE 80; RESP 16; TEMP 36.9; O2SAT 98
[2024-04-28] MEDS: Aspirin 81 MG TAB.CHEW PO (09:13)
[2024-04-28] MEDS: hydroCHLOROthiazide 6.25mg TAB 6.25 MG PO (09:13)
[2024-04-28] MEDS: Carvedilol 3.125 MG TABLET PO (09:13)
[2024-04-28] MEDS: Psyllium 1 PACKET PO (09:13)
[2024-04-28] MEDS: Lisinopril 10 MG Tablet PO (09:13)
--- NOTE | 2024-04-28 10:23 | DCINST_ITS ---
Discharge Instructions Diet Discharge Diet: - (Recommend less than 3 g of sodium and less than 2 L of fluids daily) Activity Discharge Activity: - (See attached instructions) Follow Up Care Test Results: Test results from this visit will be discussed in further detail at your follow- up appointment, if applicable. Discharge Plan Admission Admit Date/Time: 04/26/24 21:25 Primary Reason for Your Visit: Chest pain Attending Provider: Beatris Atkins Primary Care Provider: Jodie Yanes Consulting Providers: Dash Prabhakar; Liliya Ballard Instructions Patient Instructions: Takotsubo Cardiomyopathy Additional Instructions / Restrictions: DISCHARGE INSTRUCTIONS PLEASE READ *Please take this with you to your next doctors appointment* -Your metoprolol's been discontinued and he will instead be taking carvedilol, please continue other home medications -You will need to follow-up with cardiology upon discharge, please call the office upon discharge to schedule your hospital follow-up appointment ) -Please take your medications as prescribed, do not skip doses -Check your incisions every day for signs of infection which would include redness, swelling, leaking. It is normal to have a small bruise or bump where the catheter was placed but a bruise that is getting larger is not normal. Please tell your healthcare team about this. Please proceed to the emergency department if you have uncontrollable bleeding from the site. -Okay to shower from the day after your heart catheterization but keep your incision site clean and dry -Recommend less than 3 g of sodium and less than 2 L of fluids daily. -Please call your primary care provider's office upon discharge to schedule a hospital follow up within 1 week. -For any concerning signs or symptoms please call 911 or proceed to the nearest emergency department Discharge Orders/Prescriptions Prescriptions: New carvedilol 3.125 mg Tablet 3.125 mg PO BIDCM 30 Days Qty: 60 0RF Continued cholecalciferol (vitamin D3) 125 mcg (5,000 unit) tablet 125 mcg PO DAILY trazodone 50 mg tablet 50 mg PO QHS PRN (Reason: insomnia) aspirin 81 MG tablet,chewable 81 mg PO DAILY@0800 Qty: 90 0RF estradiol 0.01 % (0.1 mg/gram) cream 1 g vaginal .COMPLEX Rx Instructions: 1 g vaginal 1gm each night for 2 weeks, then 2x a week; NEEDED Complex B-100 Tablet Extended Release 1 tab PO DAILY psyllium husk [Daily Fiber] 0.52 gram capsule 0.52 g PO DAILY atorvastatin 20 mg tablet 20 mg PO QHS Qty: 90 3RF levothyroxine 75 mcg tablet 75 mcg PO DAILY Qty: 90 3RF lisinopril-hydrochlorothiazide 20-12.5 mg tablet 0.5 tab PO DAILY Qty: 90 1RF Discontinued metoprolol tartrate 25 mg tablet 12.5 mg PO BID Qty: 90 3RF Referrals / Follow Up: Dash Prabhakar MD [Med Staff - Active Staff] - ( -You will need to follow-up with cardiology upon discharge, please call the office upon discharge to schedule your hospital follow-up appointment (ph [phone])) Jodie Yanes MD [Primary Care Provider] - Within 1 Week Disposition Disposition (needs filled in before D/C Order can be placed): Home, Self Care
--- NOTE | 2024-04-28 10:31 | PCM.DC.SUM ---
Providers Date of Admission: 04/26/24 Date of Discharge: 04/28/24 Primary Care Physician: Dr. Jodie Yanes MD Consultations 04/26/24 23:05 Consult: Cardiology Routine Consulting Provider: Dash Prabhakar Reason for Consult: Chest Pain, NSTEMI EMERGENT Consult: No MD Notified: Yes Date Notified: 04/26/24 Time Notified: 21:27 Method of Notification: ED Physician Initiated Reason For Visit: NSTEMI Diagnosis Discharge Diagnosis (1) Takotsubo cardiomyopathy: Status: Acute Code(s): I51.81 - Takotsubo syndrome Plan # NSTEMI type II secondary to Takotsubo cardiomyopathy #Hypothyroidism # Hypertension # History of insomnia Medications at Discharge Home Medications aspirin 81 mg chewable tablet 81 mg PO DAILY@0800 ##90 07/26/17 cholecalciferol (vitamin D3) 125 mcg (5,000 unit) tablet 125 mcg PO DAILY 07/04/21 atorvastatin 20 mg tablet 20 mg PO QHS #90 tabs 05/13/23 levothyroxine 75 mcg tablet 75 mcg PO DAILY #90 tabs 09/11/23 lisinopril 20 mg-hydrochlorothiazide 12.5 mg tablet 0.5 tab PO DAILY #90 tabs 11/28/23 trazodone 50 mg tablet 50 mg PO QHS PRN insomnia 01/07/24 estradiol 0.01% (0.1 mg/gram) vaginal cream 1 g vaginal .COMPLEX 01/12/24 psyllium husk 0.52 gram capsule (Daily Fiber) 0.52 g PO DAILY bm 01/12/24 vitamin B complex (Complex B-100 tablet,extended release) 1 tab PO DAILY 01/12/24 carvedilol 3.125 mg tablet 3.125 mg PO BIDCM 30 days #60 tabs 04/28/24 Hospital Course Summary of Care Provided Minutes Spent on Discharge: 31 Hospital Course: 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 difficile colitis, Hx NSTEMI w/ normal appearing cardiac catheterization felt secondary to vasospasms who presents to the [facility] ED on 04/26/24 with chest discomfort starting approximately 30 minutes prior to ED arrival. She had nonspecific EKG changes and had a troponin of 567 that increased over 12,000. She was given aspirin and started on heparin drip and cardiology consulted. Underwent cardiac cath 04/27 with no significant atherosclerotic disease but found to have Takotsubo cardiomyopathy. Beta-karma changed to carvedilol, patient stabilized and had no further symptoms. Discussed with cardiology, patient stable and okay for discharge on carvedilol and other current medications and follow-up outpatient. On day of discharge patient with no new or acute complaints. Overall feeling well. Discharge instructions as followed: -Your metoprolol's been discontinued and he will instead be taking carvedilol, please continue other home medications -You will need to follow-up with cardiology upon discharge, please call the office upon discharge to schedule your hospital follow-up appointment ( [phone]) -Please take your medications as prescribed, do not skip doses -Check your incisions every day for signs of infection which would include redness, swelling, leaking. It is normal to have a small bruise or bump where the catheter was placed but a bruise that is getting larger is not normal. Please tell your healthcare team about this. Please proceed to the emergency department if you have uncontrollable bleeding from the site. -Okay to shower from the day after your heart catheterization but keep your incision site clean and dry -Recommend less than 3 g of sodium and less than 2 L of fluids daily. -Please call your primary care provider's office upon discharge to schedule a hospital follow up within 1 week. -For any concerning signs or symptoms please call 911 or proceed to the nearest emergency department Physical Exam Narrative General: Alert, oriented, no apparent distress HEENT: Atraumatic, normocephalic Eyes: Anicteric, normal conjunctiva, extraocular movements grossly intact Neck: Supple Respiratory: Clear to auscultation bilaterally, normal respiratory effort Cardiovascular: Regular rate and rhythm GI: Soft, nontender, nondistended Extremities: No edema Musculoskeletal: Moving all extremities Neuro: No overt focal neurological deficits Skin: No rashes appreciated Psych: Cooperative Weight / BMI Weight Weight: 91.1 kg Body Mass Index (BMI) 33.4 ABG / Lab / Microbiology Data 04/28/24 05:41 04/28/24 05:41 Laboratory: Laboratory Results - last 24 hr 04/28/24 05:41: WBC 8.1, RBC 4.00 L, Hgb 13.1, Hct 39.1, MCV 97.8, MCH 32.8 H, MCHC 33.5, RDW Std Deviation 53.2 H, RDW Coeff of [place] 14.6, Plt Count 220, MPV 9.2, Sodium 136, Potassium 4.0, Chloride 106, Carbon Dioxide 27.0, Anion Gap 3 L, BUN 12, Creatinine 0.90, Estim Creat Clear Calc 62.08, Est GFR (MDRD) Af Amer 79, Est GFR (MDRD) Non-Af 65, BUN/Creatinine Ratio 13.3, Glucose 114 H, Calcium 9.2 Radiography Diagnostic Testing: Radiology Impression Echocardiogram 04/26/24 23:05 Interpretation Summary The left ventricular ejection fraction is 45 %. Normal LV size. Pulmonary artery systolic pressure is 26 mmHg. Stage 1 diastolic dysfunction. Ordering Physician: Liliya Ballard Referring Physician: Jodie Yanes M.D. Performed By: Therese Gilliam RDCS and Student D/C Instructions Discharge Diet: - (Recommend less than 3 g of sodium and less than 2 L of fluids daily) Meaningful Use Info Meaningful Use Meaningful Use Diagnoses (Choose all that apply): None applicable Ischemic Stroke Statin Dosing Therapy Reference: STATIN DOSE THERAPY REFERENCE: * Patients > 75 years receive moderate or high dose statin therapy. * Patients 75 years or YOUNGER should receive HIGH intensity statin dose unless contraindicated. You will be required to document reason for non-treatment if statin daily dose does not meet guidelines. HIGH DOSE STATIN THERAPY DAILY Atorvastatin > than or = to 40 mg Rosuvastatin > than or = to 20 mg Amlodipine + Atorvastatin > than or = to 2.5/40 mg Ezetimibe + Simvastatin 10/80 mg Simvastatin 80mg Discharge Plan Admission Admit Date/Time: 04/26/24 21:25 Primary Reason for Your Visit: Chest pain Attending Provider: Beatris Atkins Primary Care Provider: Jodie Yanes Consulting Providers: Dash Prabhkaar; Liliya Ballard Instructions Patient Instructions: Takotsubo Cardiomyopathy Additional Instructions / Restrictions: DISCHARGE INSTRUCTIONS PLEASE READ *Please take this with you to your next doctors appointment* -Your metoprolol's been discontinued and he will instead be taking carvedilol, please continue other home medications -You will need to follow-up with cardiology upon discharge, please call the office upon discharge to schedule your hospital follow-up appointment ) -Please take your medications as prescribed, do not skip doses -Check your incisions every day for signs of infection which would include redness, swelling, leaking. It is normal to have a small bruise or bump where the catheter was placed but a bruise that is getting larger is not normal. Please tell your healthcare team about this. Please proceed to the emergency department if you have uncontrollable bleeding from the site. -Okay to shower from the day after your heart catheterization but keep your incision site clean and dry -Recommend less than 3 g of sodium and less than 2 L of fluids daily. -Please call your primary care provider's office upon discharge to schedule a hospital follow up within 1 week. -For any concerning signs or symptoms please call 911 or proceed to the nearest emergency department Discharge Orders/Prescriptions Prescriptions: New carvedilol 3.125 mg Tablet 3.125 mg PO BIDCM 30 Days Qty: 60 0RF Continued cholecalciferol (vitamin D3) 125 mcg (5,000 unit) tablet 125 mcg PO DAILY trazodone 50 mg tablet 50 mg PO QHS PRN (Reason: insomnia) aspirin 81 MG tablet,chewable 81 mg PO DAILY@0800 Qty: 90 0RF estradiol 0.01 % (0.1 mg/gram) cream 1 g vaginal .COMPLEX Rx Instructions: 1 g vaginal 1gm each night for 2 weeks, then 2x a week; NEEDED Complex B-100 Tablet Extended Release 1 tab PO DAILY psyllium husk [Daily Fiber] 0.52 gram capsule 0.52 g PO DAILY atorvastatin 20 mg tablet 20 mg PO QHS Qty: 90 3RF levothyroxine 75 mcg tablet 75 mcg PO DAILY Qty: 90 3RF lisinopril-hydrochlorothiazide 20-12.5 mg tablet 0.5 tab PO DAILY Qty: 90 1RF Discontinued metoprolol tartrate 25 mg tablet 12.5 mg PO BID Qty: 90 3RF Referrals / Follow Up: Dash Prabhakar MD [Med Staff - Active Staff] - ( -You will need to follow-up with cardiology upon discharge, please call the office upon discharge to schedule your hospital follow-up appointment (ph [phone])) Jodie Yanes MD [Primary Care Provider] - Within 1 Week Disposition Disposition (needs filled in before D/C Order can be placed): Home, Self Care Charges/Coding Visit Charges Inpatient E&M: 16808 Disch Hosp >30min
--- NOTE | 2024-04-28 10:56 | CASEMGMT ---
Patient has order for discharge. RN CM in to discuss needs at discharge. Patient denies needs or help at discharge. Patient had no further questions or concerns.
== END 2024-04-28 11:33 | disposition home or self-care (01) | DRG 282 ==
LOC: ED 20:05 → PCU 21:47
PROVIDERS: Admitting Provider Family Medicine; Emergency Provider Emergency Medicine; PCP Internal Medicine; Visit Provider Internal Medicine
DX: I51.81 Takotsubo syndrome (principal); I21.A1 Myocardial infarction type 2; E03.9 Hypothyroidism, unspecified; I10 Essential (primary) hypertension; D64.9 Anemia, unspecified; E66.9 Obesity, unspecified; E78.5 Hyperlipidemia, unspecified; I25.10 Atherosclerotic heart disease of native coronary artery without angina pectoris; K21.9 Gastro-esophageal reflux disease without esophagitis; Z79.82 Long term (current) use of aspirin; Z79.890 Hormone replacement therapy; G47.00 Insomnia, unspecified; Z79.899 Other long term (current) drug therapy; Z68.32 Body mass index [BMI] 32.0-32.9, adult
CPT/HCPCS: 36415; 71045; 80048; 80053; 80061; 83735; 84484; 85025; 85027; 85610; 85730; 93005; 93308; 93458; 99152; 99153; 99285; J7030; Q9957; Q9967; A4216; C1769; C1894

== ENCOUNTER → 2024-05-05 | Outpatient (CLI) | payer MEDICARE, OTHER, SELFPAY ==
--- NOTE | 2024-05-05 10:05 | PCM.CR.HP2 ---
CR - History & Physical General Arrival date:: 05/05/24 Arrival time:: 10:05 Date of Referral:: 04/28/24 Date of CR Evaluation:: 05/05/24 Referring Physician: Dr. Prabhakar Primary Diagnosis: [place]- NonSTEMI<12months History of Present Cardiac Event Onset Date Acute Myocardial Infarction within 12 months:: Yes (04/26/2024 onset) Medications Ambulatory Orders ?Medication ?Instructions ?Recorded aspirin 81 mg chewable tablet 81 mg PO DAILY@0800 ##90 07/26/17 cholecalciferol (vitamin D3) 125 125 mcg PO DAILY 07/04/21 mcg (5,000 unit) tablet atorvastatin 20 mg tablet 20 mg PO QHS #90 tabs 05/13/23 levothyroxine 75 mcg tablet 75 mcg PO DAILY #90 tabs 09/11/23 lisinopril 20 0.5 tab PO DAILY #90 tabs 11/28/23 mg-hydrochlorothiazide 12.5 mg tablet trazodone 50 mg tablet 50 mg PO QHS PRN insomnia 01/07/24 estradiol 0.01% (0.1 mg/gram) 1 g vaginal .COMPLEX 01/12/24 vaginal cream psyllium husk 0.52 gram capsule 0.52 g PO DAILY bm 01/12/24 (Daily Fiber) vitamin B complex (Complex B-100 1 tab PO DAILY 01/12/24 tablet,extended release) carvedilol 3.125 mg tablet 3.125 mg PO BIDCM 30 days #60 tabs 04/28/24 spironolactone 25 mg tablet 25 mg PO QDAY #90 tabs 04/30/24 Allergies Allergies Sulfa (Sulfonamide Antibiotics) Allergy (Verified 05/04/24 11:24) Rash Sleep Disorder Evaluation Hx of Sleep Apnea: No Do you snore loudly (louder than talking or can be heard through closed doors)?: No Do you often feel tired/ fatigued/ sleepy during daytime?: No Has anyone observed you stop breathing during sleep?: No History of Hypertension (for STOP score): Yes STOP Results: Negative Advanced Directives Advanced Directives Power of Child Care Education Coordinator: Yes Living Will: Yes Advance Directives Information Provided: Yes Advance Directives on File: Yes DNR Order?:: No Past Medical History Covid-19 Screening Physicial Symptoms Other Clinical Concerns Exposure Risk Pertinent Comorbidities 65 years or older:: Yes Has a serious heart condition:: Yes Past Medical Illness Medical History Recurrent Clostridioides difficile diarrhea Hammer toe TIA (transient ischemic attack) Psoriasis Thyroid disease GERD (gastroesophageal reflux disease) Osteopenia Neuropathy Carpal tunnel syndrome Arthritis Atherosclerosis of coronary artery of [place] heart without angina pectoris Non-STEMI (non-ST elevated myocardial infarction) (~07/2017) Hypertension Hyperlipidemia Past Surgical History Surgical History History of left knee replacement History of colonoscopy (07/02/17) History of tubal ligation History of tonsillectomy and adenoidectomy History of hysterectomy History of carpal tunnel surgery of right wrist History of bladder suspension procedure History of foot surgery Surgical History: - Family History Summary Family History Brother Alcoholism Myocardial infarction Kidney disease Multiple myeloma Mother Arthritis Blood clot in vein Father Cancer Renal & Skin Kidney disease Social History Smoking History Smoking Status: Never smoker Alcohol Use Alcohol Usage: Yes (wine occas) Substance Abuse Hx Substance Use: No Occupation Occupation (List type of work in comments):: Retired Hobbies, Recreation, Social Activities Hobbies: Sewing and Reading Recreational Activities: I am able to engage in all my recreational activities Social Environment Status Marital Status: Current Living Arrangements Living Environment:: Spouse Children How many children do you have?: 2 Do any of your children live nearby?: No Safety Do you feel safe in your surroundings?: Yes Assistance Do you need any assistance at home?: no Review of Systems Review of Systems Hints Review of Present Symptoms: Reports Angina, Fatigue, Appetite - Normal, Appetite - Special Diet and Sleep - Normal; Denies Shortness of Breath at Rest, Shortness of Breath with Exertion, PVD, Operative Discomfort, Wound Healing, Dizziness/Lightheadedness, Heart Arrhythmia/Irregularities or Sexual Changes Pain Is Patient Pain Free?: Yes Risk Factor Assessment Chief Complaint Chief Complaint: [place]-NonSTEMI<12months Vital Signs Pulse Ox: 93 Blood Pressure: 102/66 Pulse Pulse Rate: 65 Pulse Rhythm: Regular Hypertension How long have you been treated?: 30 yr Blood Pressure Sitting - Right Arm: 102/66 Diabetes Nutrition Referral for Diabetes: No Obesity Height: 5 ft 5 in Weight:: 199 lb Weight in Pounds: 199.0 lbs Body Mass Index (BMI): 33.1 Nutritional Referral for Obesity: No (declines) Physical Inactivity Physical Inactivity: Reg Exercise 30 min/day Risk Stratification Risk Guidelines: Lowest Risk: Risk Factor for Smoking, Moderate Risk: Risk Factor for Diabetes, Risk Factor for Obesity, Risk Factor for Sedentary Lifestyle and Risk Factor for Depression and Highest Risk: Risk Factor for Dyslipidemia and Risk Factor for Hypertension For Smoking Smoking Risk Guidelines For Dyslipidemia Dyslipidemia Risk Guidelines For Diabetes Mellitus Diabetes Risk Guidelines For Obesity/Overweight Obesity/Overweight Risk Guidelines For Hypertension Hypertension Risk Guidelines For Sedentary Lifestyle Sedentary Lifestyle Risk Guidelines For Depression Depression Risk Guidelines Family History Family History Brother Alcoholism Myocardial infarction Kidney disease Multiple myeloma Mother Arthritis Blood clot in vein Father Cancer Kidney disease Motivation Motivation to Participate On a scale of 1 to 10, how prepared are you to commit to attending program?: 8 What do you see as barriers to successfully being able to complete the program?: nothing What do you see as the benefits of succesfully completing the program? In other words, what do you hope to get out of participating in the program?: stamina Are there issues you are dealing with that will interfere with completing the program?: no Do you have a spouse or signficant other, family or friends who will help support you to complete the program?: yes
--- NOTE | 2024-05-05 10:15 | PCM.CR.ITP ---
Diagnosis General Information Admitting Diagnosis: ID-NonSTEMI <12months Personal Learning Style:: Audio/Visual Barriers to Learning: No Barriers Stage of change r/t lifestyle modifications:: Contemplation Gave educational material for:: Treating Heart Disease, How The Heart Works, What it means to have Heart Disease, How Coronary Artery Disease is Diagnosed, Heart Procedures, What Heart Medications Do, Risk Factors & Modifications, Living an Active Life, Nutrition, Emotions & Heart Disease, Stress Management & Relaxation and Sleep Disorders & Heart Disease Education/Goals Cardiac Rehabilitation Goals Personal Goals: Initial Assessment: Improve energy level and Improve knowledge of cardiac disease Scale for measuring improvement of personal goals Diagnosis & Disease Process Outcomes/Goals: Pt IDs own risk factors & lifestyle modifications by Session 10, Verbalizes symptoms of angina & response by session 3., Pt independently manages and Other Additional Outcomes/Goals: Plan/Interventions: Assist Pt to ID & engage in lifestyle modification to reduce CVD risk, Instruct on individual risk factors, Review symptoms of angina & emergency actions, Review secondary diagnosis & identify educational needs. and Other see comment 30 day Reassessments:: Not Met 30 day Reassessments:: Not Met 30 day Reassessments:: Not Met 30 day Reassessments:: Not Met Final Reassessments:: Not Met Safety Referral to Physical Therapy: No Referral to [facility] Case Management: No Fall Risk Assessed:: Yes Assistive Devices:: None Exercise - Initial Assessment Visit Date of Eval: 05/05/24 (initial eval ) Mets: Pre-: >3 METS for 30 minutes by discharge, >5 METS for 30 minutes by discharge, >7 METS for 30 minutes by discharge and Unable to meet goal due to: (see comment below) Physician Prescribed Exercise Modalities: Treadmill, Rower, Schwinjim Airdyne AD-7, SciFit Stepper, SciFit Pro-II Ergometer and SciFit Lateral Labor/Excavator Frequency: 3x/week for 12 weeks [36 sessions] Intensity: 60-80% of age predicted maximum heart rate reserve Duration: 30 - 45 minutes Current METSs:: 3 Target Heart Rate:: 88-110 Resting Blood Pressure: 102/66 EKG Type: NSR Outcomes & Goals Goals:: Verbalizes understanding of THR, RPE & goal METS by session 6, Documents in home exercise log/reports 30 min aerobic 5 day/wk by DC, Demonstrates accurate pulse taking by DC and Other additional outcome/goals: see below Intervention & Plan Exercise Program Goals: Instruct on personal THR & RPE, Instruct on MET level & personal MET goal, Show patient to take own pulse /validate performance until accurate, Instruct on home exercise and Other additional plan/int Physical Activity Home Exercise Physical Activity - Home Exercise: Safe Exercise, Warm-up, Self-monitoring, Cool-Down, Home Exercise > 30 min Daily and Sitting Time <3 hours/daily Outcomes & Goals Outcomes/Goals: Demonstrates correct Warm-up/exercise Cool-Down (S3) if = 2.5 METs, Verbalizes symptoms of exercise intolerance by Session 3 (S3), Demonstrate safe equipment use (S3) & follows exercise prescrition (6) and Other: See below Intervention & Plan Plan/Intervention: Instruct warm-up & cool-down if exercising at > 2 METs, Instruct on symptoms of exercise intolerance & actions to take, Instruct & monitor on saf, Assess intial functional capacity & safety risk and Other See below Nutrition - Initial Assessment Program Goals Nutrition Program Goals Patient has diagnosis of Hyperlipidemia (ICD E78)?: Yes Visit Date of Eval: 05/05/24 (initial eval ) Cholesterol/Lipids (Other Core Measures) Determine presence & major risk factors that modify LDL goal: Hypertension or hypertensive medication, Low HDL cholesterol <40 mg/dL*, Family history of premature CHD in Male < 55 years: female <65 yearsFa and Age men > 45 years; women >/= 55 years Outcomes/Goals: Pt IDs own risk factors & lifestyle modifications by Session 10, Verbalizes symptoms of angina & response by session 3., Pt independently manages and Other Additional Outcomes/Goals: Intervention/Plan: Advocate for lipid panel cholesterol medication if applicable, Instruct on personal lipid levels & lipid goals/NCEP guidelines, Instruct on cholesterol and Other additional plan/int Referral to dietitian:: No (pt declines) Diabetes (Other Core Measures) Diabetes Type: Not Applicable Weight Mgt (Other Care) Height: 5 ft 5 in Weight:: 199 lb BMI: 33.1 Diagnosis Overweight/Obesity BMI> 30% ICD-10 E66: Yes Diagnosis High BMI/Morbid Obesity BMI> 35% ICD-10 Z68: No Outcomes/Goals: Pt sets, maintains & shows weight loss goal & trend during rehab and Other additional outcomes/goals Intervention/Plan: Instruct on ideal BMI & set weight loss goal w/patient, Assist pt to ID & incorporate diet changes for weight loss by S9, Refer to Structured Weight Loss program as appropriate, Encourage goal of using 250-300dcal per session for weight loss and Other additional plan/interventions Healthy Eating Habits Will attend diet classes:: Yes Outcomes/Goals:: Consume diet rich in vegs,fruits,whole grain/high fiber,fish,lean meat, Limit sat/trans fats,cholesterol & added salts & sugars and Other additional outcome/goals: Intervention/Plan:: Assess current eating habits and Other Additional plan/interventions Education Gave educational materials for:: Signs & symptoms of hypoglycemia, Signs & symptoms of hyperglycemia, Relate diabetes to coronary artery disease and Healthy eating Core - Initial Assessment Visit Date of Eval: 05/05/24 (initial eval ) Medication Compliance Preventative Medication(s):: Aspirin, GAURAV inhibitor, Statin/lipid and Beta karma H/O mental health issues: depression, anxiety, or addiction?: No Doesn?t believe in the benefits of treatment?: No Believes medications are unnecessary or harmful?: No Has a concern about medication side effects?: No Expresses concern over the cost of medications?: No Outcomes/Goals: Verbalizes medications,desired effect & common side effects @ DC, Pt self-reports following medication regimen, Keeps card in wallet w/medications listed by DC and Other additional outcome/goals: Interventions/plans: Instruct on medication effects & side effects, Review medication list w/patient every two weeks, Instruct importance of taking meds as ordered & assist problem solving and Other additional Tobacco Use Tobacco Use: Non-smoker Hypertension Hypertension Diagnosis:: Hypertension ICD-10 I10 Resting Blood Pressure:: 102/66 Citizen [place] [employer] Hypertension Guidelines Outcomes/Goals: Able to verbalize/achieve optimal blood pressure <130/80, Incorporates diet changes & exercise for blood pressure control by DC and Other additional outcomes/goals Interventions/plan: Instruct on optimal blood pressure, hypertension & medications, Instruct on effects of sodium, alcohol, stress, exercise &hypertension and Other additional plan/interventions Tobacco Cessation Referral Smoking Cessation Referral:: No Individual Education/Counseling:: No Education Schedule Given:: Yes Psychosocial - Initial Assess VIsit Date of Eval: 05/05/24 (initial eval ) History of previous Mental disease:: No Target Goals Target Goals Psychosocial Test Tool Used:: [employer] Power QOL Cardiac and PHQ-9 Questionnaire phq-9 Severity Referral to Behavioral Health PS - Interventions: Yes: Referral to Behavioral Health if PHQ-9 score >9:, Yes: Referral to [facility], Yes: Referral to Physician if PHQ-9 if score is 5-9: and Yes: Attend Stress Management Classes Outcomes/Goals: See list Psychosocial Outcomes/Goals:: ID's personal stressors & 2 strategies to manage stress by discharge and Other Additional outcome/goals: Intervention/Plan: See List Interventions/Plan:: Assess stressors,coping strategies & signs of derpression on admission, Instruct/assist pt to develop coping & personal stress Mgt strategies, Refer to Behavioral Health if appropriate, Refer to Physician if appropriate, Instruct patient to recognize signs & symptoms of depression, Instruct patient to recog and Other additional plan/intervention Patient Health Questionnaire PHQ-9 Screening Initial Assessment: 1. Little interest or pleasure in doing things: Not at all 2. Feeling down, depressed, or hopeless: Not at all 3. Trouble falling or staying asleep, or sleeping too much: Nearly every day 4. Feeling tired or having little energy: More than half the days 5. Poor appetite or overeating: Not at all 6. Feeling bad about yourself -- or that you are a failure or have let yourself or your family down: Not at all 7. Trouble concentrating on things, such as reading the newspaper or watching television: Not at all 8. Moving or speaking so slowly that other people could have noticed. Or the opposite - being so fidgety or restless that you have been moving around a lot more than usual: Not at all 9. Thoughts that you would be better off , or of hurting yourself in some way: Not at all How difficult have these problems made it for you to do your work, take care of things at home, or get along with other people?: Not difficult at all Total Score: 5 NEIL-Q SV Test Statements CAD is a disease of the arteries in the heart: False Examples of risk factors for heart disease: True Angina is chest pain or discomfort: True The benefits of resistance training include: True Eating more meat and dairy products: False Anti-platelet medications such as aspirin are important: True The only effective way to manage stress: False An exercise warm-up slowly increases heart rate: True Prepared, processed foods usually have high sodium: True Depression is common after a heart attack: True The statin medications lower cholesterol: True To control blood pressure, lower the amount of sodium: True If someone gets chest discomfort during walking: False Transfats are partially hydrogenated vegetable oils: True Sleep apnea that is not treated increases the risk: False To control cholesterol, one should become a vegetarian: False Someone knows if he/she is exercising at the right level: True Diabetes cannot be prevented with exercise & health eating: False Stress is a large risk for heart attack: True A diet that can help lower blood pressure is rich in: True Total Score Total Correct Responses: 20 Self-Efficacy 6-Item Scale Initial Assessment: We would like to know how confident you are in doing certain activities. Please select your confidence level for: Fatigue Select Number: 8 Physical Discomfort or Pain Select Number: 9 Emotional Distress Select Number: 9 Other Symptoms or Health Problems Select Number: 7 Different Tasks and Activities Select Number: 9 Medication Select Number: 9 Total Score:: 8 Nutrition Survey Nutrition Survey Instructions Scoring Instructions Nutrition Survey Initial: Have you lost >10 lbs over the past 2 months without trying?: No Are you following a special diet at home for diabetes, low fat, or low salt?: No Are you interested in meeting with a dietitian for help understanding your diet?: No Do you eat less than 3 meals a day?: Yes Do you eat fatty meats (barrios, sausage, ribs, etc), fried foods, desserts, large amounts of salad dressings, margarine, butter, or cheese most days?: No Do you have food allergies? [Enter types in comment field]: No Do you eat in restaurants more than 3 times a week?: No Do you season food with salt, seasoning salt, or garlic salt?: No Do you used canned, boxed, frozen meals, or soups, seasoning packets?: No Total Score:: 1 Exercise - 30-day Assessment Physician Prescribed Exercise Modalities: Treadmill, Rower, Alysonn Airdyne AD-7, SciFit Stepper, SciFit Pro-II Ergometer and SciFit Lateral [place] Exercise - 60-day Assessment Physician Prescribed Exercise Modalities: Treadmill, Rower, Schwinn Airdyne AD-7, SciFit Stepper, SciFit Pro-II Ergometer and SciFit Lateral [place] Exercise - 90-day Assessment Physician Prescribed Exercise Modalities: Treadmill, Rower, Schwinn Airdyne AD-7, SciFit Stepper, SciFit Pro-II Ergometer and SciFit Lateral Labor/Excavator Exercise - Final/Discharge Physician Prescribed Exercise Modalities: Treadmill, MayraerFelecia AD-7, SciFit Stepper, SciFit Pro-II Ergometer and SciFit Lateral Labor/Excavator Frequency: 3x/week for 12 weeks [36 sessions] Intensity: 60-80% of age predicted maximum heart rate reserve Current METSs:: 3 Target Heart Rate:: 88-110 Nutrition - 30-Day Assessment Weight Mgt (Other Care) Height: 5 ft 5 in Weight:: 199 lb BMI: 33.1 Nutrition - 60-Day Assessment Weight Mgt (Other Care) Height: 5 ft 5 in Weight:: 199 lb BMI: 33.1 Core - Final Assessment Hypertension Resting Blood Pressure:: 102/66 [place] [employer] Hypertension Guidelines Core - 60-Day Assessment Hypertension Resting Blood Pressure:: 102/66 [place] [employer] Hypertension Guidelines Psychosocial - 30-Day Assess Target Goals Target Goals Referral to Behavioral Health PS - Interventions: Yes: Referral to Behavioral Health if PHQ-9 score >9:, Yes: Referral to [facility], Yes: Referral to Physician if PHQ-9 if score is 5-9: and Yes: Attend Stress Management Classes Psychosocial - 60-Day Assess Target Goals Target Goals Referral to Behavioral Health PS - Interventions: Yes: Referral to Behavioral Health if PHQ-9 score >9:, Yes: Referral to [facility], Yes: Referral to Physician if PHQ-9 if score is 5-9: and Yes: Attend Stress Management Classes Psychosocial - 90-Day Assess Target Goals Target Goals Referral to Behavioral Health PS - Interventions: Yes: Referral to Behavioral Health if PHQ-9 score >9:, Yes: Referral to [facility], Yes: Referral to Physician if PHQ-9 if score is 5-9: and Yes: Attend Stress Management Classes Psychosocial - Final Assessmen Target Goals Target Goals Referral to Behavioral Health PS - Interventions: Yes: Referral to Behavioral Health if PHQ-9 score >9:, Yes: Referral to [facility], Yes: Referral to Physician if PHQ-9 if score is 5-9: and Yes: Attend Stress Management Classes Nutrition - 90-Day Assessment Weight Mgt (Other Care) Height: 5 ft 5 in Weight:: 199 lb BMI: 33.1 Nutrition - Final Assessment Program Goals Patient has diagnosis of Hyperlipidemia (ICD E78)?: Yes Weight Mgt (Other Care) Height: 5 ft 5 in Weight:: 199 lb BMI: 33.1
[2024-05-05 10:22] VITALS: BMI 33.1
[2024-05-05 10:28] VITALS: BP 102/66; PULSE 65; O2SAT 93
[2024-05-05 11:05] VITALS: BP 102/66; BMI 33.1
== END | disposition home or self-care (01) ==
LOC: CR 10:01
PROVIDERS: PCP Internal Medicine; Referring Provider Internal Medicine Cardiovascular Disease; Visit Provider Internal Medicine Cardiovascular Disease
DX: I25.2 Old myocardial infarction (principal); I10 Essential (primary) hypertension; I25.10 Atherosclerotic heart disease of native coronary artery without angina pectoris; K21.9 Gastro-esophageal reflux disease without esophagitis; E07.9 Disorder of thyroid, unspecified; E78.5 Hyperlipidemia, unspecified; L40.9 Psoriasis, unspecified; M85.80 Other specified disorders of bone density and structure, unspecified site; M19.90 Unspecified osteoarthritis, unspecified site; G62.9 Polyneuropathy, unspecified; Z86.19 Personal history of other infectious and parasitic diseases; Z86.73 Personal history of transient ischemic attack (TIA), and cerebral infarction without residual deficits; Z79.82 Long term (current) use of aspirin; Z79.899 Other long term (current) drug therapy; Z96.651 Presence of right artificial knee joint

== ENCOUNTER → 2024-05-13 | Outpatient (CLI) | payer MEDICARE, OTHER, SELFPAY ==
[2024-05-05 11:05] VITALS: BMI 33.1
[2024-05-13 09:18] LABS: Anion Gap 6 (5-15); BUN 18 mg/dL (7-18); BUN/Creat Ratio 16.7 RATIO (10-20); Calcium,Total 9.5 mg/dL (8.5-10.1); Chloride 98 mmol/L (98-107); Creatinine, Serum 1.08 mg/dL (0.55-1.02); EST Glomerular Filtration Rate 53 mL/min (>60); Est Glom Filt Rate - Afr Amer 64 mL/min (>60); Glucose 125 mg/dL (74-106); Potassium 4.2 mmol/L (3.5-5.1); Sodium Level 130 mmol/L (136-145)
== END | disposition home or self-care (01) ==
LOC: LAB 08:19
PROVIDERS: PCP Internal Medicine; Referring Provider Internal Medicine Cardiovascular Disease; Visit Provider Internal Medicine Cardiovascular Disease
DX: I10 Essential (primary) hypertension (principal); I51.81 Takotsubo syndrome
CPT/HCPCS: 36415; 80048

== ENCOUNTER 2024-05-18 09:15 | Outpatient (RCR) | payer MEDICARE, OTHER, SELFPAY ==
[2024-05-05 11:05] VITALS: BMI 33.1
== END 2024-05-18 23:59 ==
LOC: CR 09:15
PROVIDERS: PCP Internal Medicine; Referring Provider Internal Medicine Cardiovascular Disease; Visit Provider Internal Medicine Cardiovascular Disease
DX: I21.4 Non-ST elevation (NSTEMI) myocardial infarction (principal); I51.81 Takotsubo syndrome; I25.10 Atherosclerotic heart disease of native coronary artery without angina pectoris; E78.00 Pure hypercholesterolemia, unspecified; I10 Essential (primary) hypertension
CPT/HCPCS: 93798

== ENCOUNTER → 2024-05-20 | Outpatient (CLI) | payer MEDICARE, OTHER, SELFPAY ==
[2024-05-05 11:05] VITALS: BMI 33.1
== END | disposition home or self-care (01) ==
PROVIDERS: PCP Internal Medicine; Referring Provider Internal Medicine; Visit Provider Internal Medicine
DX: A04.71 Enterocolitis due to Clostridium difficile, recurrent (principal)
CPT/HCPCS: 87493

== ENCOUNTER → 2024-05-27 | Outpatient (CLI) | payer MEDICARE, OTHER, SELFPAY ==
[2024-05-05 11:05] VITALS: BMI 33.1
[2024-05-27 09:17] LABS: Anion Gap 6 (5-15); BUN 15 mg/dL (7-18); BUN/Creat Ratio 16.4 RATIO (10-20); Calcium,Total 9.9 mg/dL (8.5-10.1); Chloride 106 mmol/L (98-107); Creatinine, Serum 0.92 mg/dL (0.55-1.02); EST Glomerular Filtration Rate 64 mL/min (>60); Est Glom Filt Rate - Afr Amer 77 mL/min (>60); Glucose 100 mg/dL (74-106); Potassium 4.4 mmol/L (3.5-5.1); Sodium Level 139 mmol/L (136-145)
== END | disposition home or self-care (01) ==
PROVIDERS: PCP Internal Medicine; Referring Provider Internal Medicine Cardiovascular Disease; Visit Provider Internal Medicine Cardiovascular Disease
DX: I51.81 Takotsubo syndrome (principal)
CPT/HCPCS: 36415; 80048

== ENCOUNTER 2024-06-12 09:15 | Outpatient (RCR) | payer MEDICARE, OTHER, SELFPAY ==
[2024-05-05 11:05] VITALS: BMI 33.1
--- NOTE | 2024-06-04 07:37 | PCM.CR.ITP ---
Exercise - Initial Assessment Visit Session #:: 10 Physician Prescribed Exercise Modalities: Treadmill, SciFit Stepper and SciFit Lateral Spike Driver Nutrition - Initial Assessment Weight Mgt (Other Care) Height: 5 ft 5 in Weight:: 198 lb 8 oz BMI: 33.0 Psychosocial - Initial Assess Target Goals Target Goals Referral to Behavioral Health PS - Interventions: Yes: Attend Stress Management Classes Patient Health Questionnaire PHQ-9 Screening 30-Day Re-eval Assessment: 1. Little interest or pleasure in doing things: Not at all 2. Feeling down, depressed, or hopeless: Not at all 3. Trouble falling or staying asleep, or sleeping too much: Nearly every day 4. Feeling tired or having little energy: More than half the days 5. Poor appetite or overeating: Not at all 6. Feeling bad about yourself -- or that you are a failure or have let yourself or your family down: Not at all 7. Trouble concentrating on things, such as reading the newspaper or watching television: Not at all 8. Moving or speaking so slowly that other people could have noticed. Or the opposite - being so fidgety or restless that you have been moving around a lot more than usual: Not at all 9. Thoughts that you would be better off , or of hurting yourself in some way: Not at all How difficult have these problems made it for you to do your work, take care of things at home, or get along with other people?: Not difficult at all Total Score: 5 Self-Efficacy 6-Item Scale 30-Day Re-eval Assessment: We would like to know how confident you are in doing certain activities. Please select your confidence level for: Fatigue Select Number: 8 Physical Discomfort or Pain Select Number: 9 Emotional Distress Select Number: 9 Other Symptoms or Health Problems Select Number: 7 Different Tasks and Activities Select Number: 9 Medication Select Number: 9 Total Score:: 8 Nutrition Survey Nutrition Survey Instructions Scoring Instructions Exercise - 30-day Assessment Visit Date of Eval: 06/04/24 Session #:: 10 Physician Prescribed Exercise Modalities: Treadmill, SciFit Stepper and SciFit Lateral Spike Driver Frequency: 3x/week for 12 weeks [36 sessions] Intensity: 60-80% of age predicted maximum heart rate reserve Duration: 30 - 45 minutes Current METSs:: 4 Target Heart Rate:: 88-110 Current RPE:: 12-12.5 Maximum Excercise HR:: 115 Resting Blood Pressure: 96/68 Maximum Exercise Blood Pressure: 116/68 EKG Type: SR to ST with rare pac and pvc Outcomes & Goals Goals:: Verbalizes understanding of THR, RPE & goal METS by session 6, Documents in home exercise log/reports 30 min aerobic 5 day/wk by DC, Demonstrates accurate pulse taking by DC and Other additional outcome/goals: see below Intervention & Plan Exercise Program Goals: Instruct on personal THR & RPE, Instruct on MET level & personal MET goal, Show patient to take own pulse /validate performance until accurate, Instruct on home exercise and Other additional plan/int 30-day Reassessments 30 day Reassessments:: Progressing Reassessment Notes & Comments:: RPE explained. Pt demonstrated understanding Physical Activity Home Exercise Physical Activity - Home Exercise: Safe Exercise, Warm-up, Self-monitoring, Cool-Down, Home Exercise > 30 min Daily and Sitting Time <3 hours/daily Outcomes & Goals Outcomes/Goals: Demonstrates correct Warm-up/exercise Cool-Down (S3) if = 2.5 METs, Verbalizes symptoms of exercise intolerance by Session 3 (S3), Demonstrate safe equipment use (S3) & follows exercise prescrition (6) and Other: See below Intervention & Plan Plan/Intervention: Instruct warm-up & cool-down if exercising at > 2 METs, Instruct on symptoms of exercise intolerance & actions to take, Instruct & monitor on saf, Assess intial functional capacity & safety risk and Other See below 30-day Reassessments 30 day Reassessments:: Progressing Reassessment Notes & Comments:: Proper warm up explained. Pt is able to return demonstration Exercise - 60-day Assessment Physician Prescribed Exercise Modalities: Treadmill, SciFit Stepper and SciFit Lateral Spike Driver Exercise - 90-day Assessment Physician Prescribed Exercise Modalities: Treadmill, SciFit Stepper and SciFit Lateral [place] Exercise - Final/Discharge Physician Prescribed Exercise Modalities: Treadmill, SciFit Stepper and SciFit Lateral [place] Nutrition - 30-Day Assessment Program Goals Nutrition Program Goals Patient has diagnosis of Hyperlipidemia (ICD E78)?: Yes Visit Date of Eval: 06/04/24 Session #:: 10 Cholesterol/Lipids (Other Core Measures) Determine presence & major risk factors that modify LDL goal: Hypertension or hypertensive medication, Low HDL cholesterol <40 mg/dL*, Family history of premature CHD in Male < 55 years: female <65 yearsFa and Age men > 45 years; women >/= 55 years Outcomes/Goals: Pt IDs own risk factors & lifestyle modifications by Session 10, Verbalizes symptoms of angina & response by session 3., Pt independently manages and Other Additional Outcomes/Goals: Intervention/Plan: Advocate for lipid panel cholesterol medication if applicable, Instruct on personal lipid levels & lipid goals/NCEP guidelines, Instruct on cholesterol and Other additional plan/int 30-day Reassessments:: Progressing Reassessment Notes & Comments:: Pt is to attend nutrition class. Pt understands what a heart healthy diet is. Diabetes (Other Core Measures) Diabetes Type: Not Applicable Weight Mgt (Other Care) Height: 5 ft 5 in Weight:: 198 lb 8 oz BMI: 33.0 Diagnosis Overweight/Obesity BMI> 30% ICD-10 E66: Yes Diagnosis High BMI/Morbid Obesity BMI> 35% ICD-10 Z68: No Outcomes/Goals: Pt sets, maintains & shows weight loss goal & trend during rehab and Other additional outcomes/goals Intervention/Plan: Instruct on ideal BMI & set weight loss goal w/patient, Assist pt to ID & incorporate diet changes for weight loss by S9, Refer to Structured Weight Loss program as appropriate, Encourage goal of using 250-300dcal per session for weight loss and Other additional plan/interventions 30 day Reassessments:: Progressing Reassessment Notes & Comments:: Pt is to attend nutrition class. Healthy Eating Habits Will attend diet classes:: Yes Outcomes/Goals:: Consume diet rich in vegs,fruits,whole grain/high fiber,fish,lean meat, Limit sat/trans fats,cholesterol & added salts & sugars and Other additional outcome/goals: Intervention/Plan:: Assess current eating habits and Other Additional plan/interventions 30-day Reassessments:: Progressing Reassessment Notes & Comments:: Pt to attend nutrition class Education Gave educational materials for:: Signs & symptoms of hypoglycemia, Signs & symptoms of hyperglycemia, Relate diabetes to coronary artery disease and Healthy eating Nutrition - 60-Day Assessment Weight Mgt (Other Care) Height: 5 ft 5 in Weight:: 198 lb 8 oz BMI: 33.0 Core - 30-Day Assessment Visit Date of Eval: 06/04/24 Session #:: 10 Medication Compliance Preventative Medication(s):: Aspirin, GAURAV inhibitor, Statin/lipid and Beta karma H/O mental health issues: depression, anxiety, or addiction?: No Doesn?t believe in the benefits of treatment?: No Believes medications are unnecessary or harmful?: No Has a concern about medication side effects?: No Expresses concern over the cost of medications?: No Outcomes/Goals: Verbalizes medications,desired effect & common side effects @ DC, Pt self-reports following medication regimen, Keeps card in wallet w/medications listed by DC and Other additional outcome/goals: Interventions/plans: Instruct on medication effects & side effects, Review medication list w/patient every two weeks, Instruct importance of taking meds as ordered & assist problem solving and Other additional 30-day Reassessments:: Progressing Reassessment Notes & Comments:: spironolactone decreased to 12.5 mg daily. Pt is taking meds as prescribed Tobacco Use Tobacco Use: Non-smoker Hypertension Hypertension Diagnosis:: Hypertension ICD-10 I10 Resting Blood Pressure:: 96/68 [place] [employer] Hypertension Guidelines Peak Exercise Blood Pressure:: 116/68 Outcomes/Goals: Able to verbalize/achieve optimal blood pressure <130/80, Incorporates diet changes & exercise for blood pressure control by DC and Other additional outcomes/goals Interventions/plan: Instruct on optimal blood pressure, hypertension & medications, Instruct on effects of sodium, alcohol, stress, exercise &hypertension and Other additional plan/interventions 30 day Reassessments:: Met Reassessment Notes & Comments:: bp's are within AHA normal limits. Tobacco Cessation Referral Smoking Cessation Referral:: No Individual Education/Counseling:: No Education Schedule Given:: Yes Psychosocial - 30-Day Assess VIsit Date of Eval: 06/04/24 Session #:: 10 History of previous Mental disease:: No Target Goals Target Goals Psychosocial Test Tool Used:: [employer] QOL Cardiac and PHQ-9 Questionnaire phq-9 Severity Referral to Behavioral Health PS - Interventions: Yes: Attend Stress Management Classes Outcomes/Goals: See list Psychosocial Outcomes/Goals:: ID's personal stressors & 2 strategies to manage stress by discharge and Other Additional outcome/goals: Intervention/Plan: See List Interventions/Plan:: Assess stressors,coping strategies & signs of derpression on admission, Instruct/assist pt to develop coping & personal stress Mgt strategies, Refer to Behavioral Health if appropriate, Refer to Physician if appropriate, Instruct patient to recognize signs & symptoms of depression, Instruct patient to recog and Other additional plan/intervention 30-day Reassessments: 30 day Reassessments:: Met Reassessment Notes & Comments:: pt denies psychosocial issues Psychosocial - 60-Day Assess Target Goals Target Goals Referral to Behavioral Health PS - Interventions: Yes: Attend Stress Management Classes Outcomes/Goals: See list Psychosocial Outcomes/Goals:: ID's personal stressors & 2 strategies to manage stress by discharge and Other Additional outcome/goals: Psychosocial - 90-Day Assess Target Goals Target Goals Referral to Behavioral Health PS - Interventions: Yes: Attend Stress Management Classes Psychosocial - Final Assessmen Target Goals Target Goals Referral to Behavioral Health PS - Interventions: Yes: Attend Stress Management Classes Nutrition - 90-Day Assessment Weight Mgt (Other Care) Height: 5 ft 5 in Weight:: 198 lb 8 oz BMI: 33.0 Nutrition - Final Assessment Weight Mgt (Other Care) Height: 5 ft 5 in Weight:: 198 lb 8 oz BMI: 33.0
[2024-06-04 07:48] VITALS: BP 96/68; BMI 33.0
== END 2024-06-18 23:59 ==
LOC: CR 09:15
PROVIDERS: PCP Internal Medicine; Referring Provider Internal Medicine Cardiovascular Disease; Visit Provider Internal Medicine Cardiovascular Disease
DX: I25.10 Atherosclerotic heart disease of native coronary artery without angina pectoris (principal); I21.4 Non-ST elevation (NSTEMI) myocardial infarction; E78.00 Pure hypercholesterolemia, unspecified; I10 Essential (primary) hypertension; I51.81 Takotsubo syndrome
CPT/HCPCS: 93798

== ENCOUNTER → 2024-07-03 | Outpatient (CLI) | payer MEDICARE, OTHER, SELFPAY ==
[2024-05-05 11:05] VITALS: BMI 33.1
[2024-06-04 07:48] VITALS: BMI 33.0
--- NOTE | 2024-07-03 08:57 | ECHOLC_ITS ---
Reason For Study: Takotsubo Syndrome Procedure This was a limited 2D transthoracic echocardiogram. Myocardial strain analysis was performed in this exam to aid in the assessment of cardiac function. Exam performed in department. Left Ventricle Normal LV size. The left ventricular ejection fraction is 50 %. Mild apical hypokinesis. Right Ventricle Normal RV size. Normal systolic function. Atria Normal left atrium. Normal right atrium. Mitral Valve Mild focal mitral valve calcification of the anterior leaflet. Tricuspid Valve Normal tricuspid valve. Aortic Valve Trisinus/trileaflet aortic valve. Pulmonic Valve Normal pulmonic valve. Great Vessels Normal aortic root. The pulmonary artery is normal size. Inferior vena cava collapse with respiration. Pericardium/Pleural No pericardial effusion. MMode/2D Measurements & Calculations LVIDd: 3.6 cm IVSd: 0.92 cm LVAd ap4: 31.3 cm2 LVIDs: 2.5 cm LVPWd: 0.91 cm LVLd ap4: 7.7 cm FS: 31.4 % EDV(MOD-sp4): 103.0 ml EDV(sp4-el): 108.3 ml LVAs ap4: 19.7 cm2 LVLs ap4: 6.5 cm ESV(MOD-sp4): 49.6 ml ESV(sp4-el): 50.2 ml EF(MOD-sp4): 51.9 % EF(sp4-el): 53.6 % LVAd ap2: 29.6 cm2 SV(MOD-sp4): 53.4 ml SV(MOD-sp2): 60.0 ml LVLd ap2: 7.6 cm SI(MOD-sp4): 27.0 ml/m2 SI(MOD-sp2): 30.3 ml/m2 EDV(MOD-sp2): 96.7 ml EDV(sp2-el): 97.6 ml LVAs ap2: 17.1 cm2 LVLs ap2: 6.7 cm ESV(MOD-sp2): 36.7 ml ESV(sp2-el): 37.1 ml EF(MOD-sp2): 62.0 % SV(sp4-el): 58.1 ml Doppler Measurements & Calculations TR max jorge: 237.0 cm/sec TR max P.5 mmHg ECHO/Echo Limited w/Contrast Interpretation Summary The left ventricular ejection fraction is 50 %. Normal LV size. The global longitudinal strain is normal. The global longitudinal strain = -17. 8 % (normal). Structurally normal valves. Contrast injection was performed. Ordering Physician: Bela Roberson Referring Physician: Jodie Yanes Performed By: Arlene Alicea RDCS, RVT
== END | disposition home or self-care (01) ==
LOC: CVS 08:57
PROVIDERS: PCP Internal Medicine; Referring Provider Nurse Practitioner Gerontology; Visit Provider Nurse Practitioner Gerontology
DX: I51.81 Takotsubo syndrome (principal)
CPT/HCPCS: 93308; Q9957; A4216; C8924

== ENCOUNTER 2024-07-15 09:15 | Outpatient (RCR) | payer MEDICARE, OTHER, SELFPAY ==
[2024-06-04 07:48] VITALS: BMI 33.0
[2024-06-19 00:47] VITALS: BP 96/68
--- NOTE | 2024-07-03 14:13 | PCM.CR.ITP ---
Exercise - Initial Assessment Physician Prescribed Exercise Modalities: Treadmill, SciFit Stepper and SciFit Lateral [place] Nutrition - Initial Assessment Weight Mgt (Other Care) Height: 5 ft 5 in Weight:: 202 lb BMI: 33.6 Core - Initial Assessment Hypertension Resting Blood Pressure:: 110/78 [place] [employer] Hypertension Guidelines Psychosocial - Initial Assess Target Goals Target Goals Referral to Behavioral Health PS - Interventions: Yes: Attend Stress Management Classes Patient Health Questionnaire PHQ-9 Screening 60-Day Re-eval Assessment: 1. Little interest or pleasure in doing things: Not at all 2. Feeling down, depressed, or hopeless: Not at all 3. Trouble falling or staying asleep, or sleeping too much: Nearly every day 4. Feeling tired or having little energy: More than half the days 5. Poor appetite or overeating: Not at all 6. Feeling bad about yourself -- or that you are a failure or have let yourself or your family down: Not at all 7. Trouble concentrating on things, such as reading the newspaper or watching television: Not at all 8. Moving or speaking so slowly that other people could have noticed. Or the opposite - being so fidgety or restless that you have been moving around a lot more than usual: Not at all 9. Thoughts that you would be better off , or of hurting yourself in some way: Not at all How difficult have these problems made it for you to do your work, take care of things at home, or get along with other people?: Not difficult at all Total Score: 5 Self-Efficacy 6-Item Scale 60-Day Re-eval Assessment: We would like to know how confident you are in doing certain activities. Please select your confidence level for: Fatigue Select Number: 8 Physical Discomfort or Pain Select Number: 9 Emotional Distress Select Number: 9 Other Symptoms or Health Problems Select Number: 7 Different Tasks and Activities Select Number: 9 Medication Select Number: 9 Total Score:: 8 Nutrition Survey Nutrition Survey Instructions Scoring Instructions Exercise - 30-day Assessment Physician Prescribed Exercise Modalities: Treadmill, SciFit Stepper and SciFit Lateral [employer] Exercise - 60-day Assessment Visit Date of Eval: 07/03/24 Session #:: 20 Physician Prescribed Exercise Modalities: Treadmill, SciFit Stepper and SciFit Lateral [place] Frequency: 3x/week for 12 weeks [36 sessions] Intensity: 60-80% of age predicted maximum heart rate reserve Duration: 30 - 45 minutes Current METSs:: 4.3 Target Heart Rate:: 88-110 Current RPE:: 12-13 Maximum Excercise HR:: 113 Resting Blood Pressure: 112/68 Maximum Exercise Blood Pressure: 122/64 EKG Type: SR to ST with rare pac, pvc Outcomes & Goals Goals:: Verbalizes understanding of THR, RPE & goal METS by session 6, Documents in home exercise log/reports 30 min aerobic 5 day/wk by DC, Demonstrates accurate pulse taking by DC and Other additional outcome/goals: see below Intervention & Plan Exercise Program Goals: Instruct on personal THR & RPE, Instruct on MET level & personal MET goal, Show patient to take own pulse /validate performance until accurate, Instruct on home exercise and Other additional plan/int 30-day Reassessments 30 day Reassessments:: Progressing Reassessment Notes & Comments:: Pt encouraged to walk on her off days from rehab. Physical Activity Home Exercise Physical Activity - Home Exercise: Safe Exercise, Warm-up, Self-monitoring, Cool-Down, Home Exercise > 30 min Daily and Sitting Time <3 hours/daily Outcomes & Goals Outcomes/Goals: Demonstrates correct Warm-up/exercise Cool-Down (S3) if = 2.5 METs, Verbalizes symptoms of exercise intolerance by Session 3 (S3), Demonstrate safe equipment use (S3) & follows exercise prescrition (6) and Other: See below Intervention & Plan Plan/Intervention: Instruct warm-up & cool-down if exercising at > 2 METs, Instruct on symptoms of exercise intolerance & actions to take, Instruct & monitor on saf, Assess intial functional capacity & safety risk and Other See below 30-day Reassessments 30 day Reassessments:: Progressing Reassessment Notes & Comments:: Cool down explained. Pt is able to return demonstration. Exercise - 90-day Assessment Physician Prescribed Exercise Modalities: Treadmill, SciFit Stepper and SciFit Lateral [place] Exercise - Final/Discharge Physician Prescribed Exercise Modalities: Treadmill, SciFit Stepper and SciFit Lateral [place] Nutrition - 30-Day Assessment Weight Mgt (Other Care) Height: 5 ft 5 in Weight:: 202 lb BMI: 33.6 Nutrition - 60-Day Assessment Program Goals Nutrition Program Goals Patient has diagnosis of Hyperlipidemia (ICD E78)?: Yes Visit Date of Eval: 07/03/24 Session #:: 20 Cholesterol/Lipids (Other Core Measures) Determine presence & major risk factors that modify LDL goal: Hypertension or hypertensive medication, Low HDL cholesterol <40 mg/dL*, Family history of premature CHD in Male < 55 years: female <65 yearsFa and Age men > 45 years; women >/= 55 years Outcomes/Goals: Pt IDs own risk factors & lifestyle modifications by Session 10, Verbalizes symptoms of angina & response by session 3., Pt independently manages and Other Additional Outcomes/Goals: Intervention/Plan: Advocate for lipid panel cholesterol medication if applicable, Instruct on personal lipid levels & lipid goals/NCEP guidelines, Instruct on cholesterol and Other additional plan/int 30-day Reassessments:: Progressing Reassessment Notes & Comments:: Risk factors discussed. Pt understands how to minimize risk factors. Diabetes (Other Core Measures) Diabetes Type: Not Applicable Weight Mgt (Other Care) Height: 5 ft 5 in Weight:: 202 lb BMI: 33.6 Diagnosis Overweight/Obesity BMI> 30% ICD-10 E66: Yes Diagnosis High BMI/Morbid Obesity BMI> 35% ICD-10 Z68: No Outcomes/Goals: Pt sets, maintains & shows weight loss goal & trend during rehab and Other additional outcomes/goals Intervention/Plan: Instruct on ideal BMI & set weight loss goal w/patient, Assist pt to ID & incorporate diet changes for weight loss by S9, Refer to Structured Weight Loss program as appropriate, Encourage goal of using 250-300dcal per session for weight loss and Other additional plan/interventions 30 day Reassessments:: Progressing Reassessment Notes & Comments:: Pt is encouraged to keep a food diary. Healthy Eating Habits Will attend diet classes:: Yes Outcomes/Goals:: Consume diet rich in vegs,fruits,whole grain/high fiber,fish,lean meat, Limit sat/trans fats,cholesterol & added salts & sugars and Other additional outcome/goals: Intervention/Plan:: Assess current eating habits and Other Additional plan/interventions 30-day Reassessments:: Met Education Gave educational materials for:: Signs & symptoms of hypoglycemia, Signs & symptoms of hyperglycemia, Relate diabetes to coronary artery disease and Healthy eating Core - Final Assessment Hypertension Resting Blood Pressure:: 110/78 [place] [employer] Hypertension Guidelines Core - 60-Day Assessment Visit Date of Eval: 07/03/24 Session #:: 20 Medication Compliance Preventative Medication(s):: Aspirin, GAURAV inhibitor, Statin/lipid and Beta karma H/O mental health issues: depression, anxiety, or addiction?: No Doesn?t believe in the benefits of treatment?: No Believes medications are unnecessary or harmful?: No Has a concern about medication side effects?: No Expresses concern over the cost of medications?: No Outcomes/Goals: Verbalizes medications,desired effect & common side effects @ DC, Pt self-reports following medication regimen, Keeps card in wallet w/medications listed by DC and Other additional outcome/goals: Interventions/plans: Instruct on medication effects & side effects, Review medication list w/patient every two weeks, Instruct importance of taking meds as ordered & assist problem solving and Other additional 30-day Reassessments:: Progressing Reassessment Notes & Comments:: Pt encouraged to take meds as prescribed. Pt understands Tobacco Use Tobacco Use: Non-smoker Hypertension Hypertension Diagnosis:: Hypertension ICD-10 I10 Resting Blood Pressure:: 112/68 Resting Blood Pressure:: 110/78 [place] [employer] Hypertension Guidelines Peak Exercise Blood Pressure:: 122/64 Outcomes/Goals: Able to verbalize/achieve optimal blood pressure <130/80, Incorporates diet changes & exercise for blood pressure control by DC and Other additional outcomes/goals Interventions/plan: Instruct on optimal blood pressure, hypertension & medications, Instruct on effects of sodium, alcohol, stress, exercise &hypertension and Other additional plan/interventions 30 day Reassessments:: Met Reassessment Notes & Comments:: Pt's BP's are within AHA normal limits. Tobacco Cessation Referral Smoking Cessation Referral:: No Individual Education/Counseling:: No Education Schedule Given:: Yes Psychosocial - 30-Day Assess Target Goals Target Goals Referral to Behavioral Health PS - Interventions: Yes: Attend Stress Management Classes Outcomes/Goals: See list Psychosocial Outcomes/Goals:: ID's personal stressors & 2 strategies to manage stress by discharge and Other Additional outcome/goals: Psychosocial - 60-Day Assess VIsit Date of Eval: 07/03/24 Session #:: 20 History of previous Mental disease:: No Target Goals Target Goals Psychosocial Test Tool Used:: [employer] QOL Cardiac and PHQ-9 Questionnaire phq-9 Severity Referral to Behavioral Health PS - Interventions: Yes: Attend Stress Management Classes Outcomes/Goals: See list Psychosocial Outcomes/Goals:: ID's personal stressors & 2 strategies to manage stress by discharge and Other Additional outcome/goals: Intervention/Plan: See List Interventions/Plan:: Assess stressors,coping strategies & signs of derpression on admission, Instruct/assist pt to develop coping & personal stress Mgt strategies, Refer to Behavioral Health if appropriate, Refer to Physician if appropriate, Instruct patient to recognize signs & symptoms of depression, Instruct patient to recog and Other additional plan/intervention 30-day Reassessments: 30 day Reassessments:: Met Reassessment Notes & Comments:: Pt denies psychosocial issues Psychosocial - 90-Day Assess Target Goals Target Goals Referral to Behavioral Health PS - Interventions: Yes: Attend Stress Management Classes Psychosocial - Final Assessmen Target Goals Target Goals Referral to Behavioral Health PS - Interventions: Yes: Attend Stress Management Classes Nutrition - 90-Day Assessment Weight Mgt (Other Care) Height: 5 ft 5 in Weight:: 202 lb BMI: 33.6 Nutrition - Final Assessment Weight Mgt (Other Care) Height: 5 ft 5 in Weight:: 202 lb BMI: 33.6
[2024-07-03 14:26] VITALS: BP 112/68
[2024-07-03 14:37] VITALS: BP 110/78; BP 112/68; BMI 33.6
== END 2024-07-18 23:59 ==
LOC: CR 09:15
PROVIDERS: PCP Internal Medicine; Referring Provider Internal Medicine Cardiovascular Disease; Visit Provider Internal Medicine Cardiovascular Disease
DX: I21.4 Non-ST elevation (NSTEMI) myocardial infarction (principal); I51.81 Takotsubo syndrome; I25.10 Atherosclerotic heart disease of native coronary artery without angina pectoris; E78.00 Pure hypercholesterolemia, unspecified; I10 Essential (primary) hypertension
CPT/HCPCS: 93798

== ENCOUNTER 2024-07-20 09:32 | Outpatient (RCR) | payer MEDICARE, OTHER, SELFPAY ==
[2024-07-19 00:28] VITALS: BP 110/78; BP 112/68; BP 96/68; BMI 33.0
== END 2024-08-18 23:59 ==
LOC: CR 09:32
PROVIDERS: PCP Internal Medicine; Referring Provider Internal Medicine Cardiovascular Disease; Visit Provider Internal Medicine Cardiovascular Disease
DX: I21.4 Non-ST elevation (NSTEMI) myocardial infarction (principal); I51.81 Takotsubo syndrome; I25.10 Atherosclerotic heart disease of native coronary artery without angina pectoris; E78.00 Pure hypercholesterolemia, unspecified; I10 Essential (primary) hypertension
CPT/HCPCS: 93798

== ENCOUNTER → 2024-10-12 | Outpatient (CLI) | payer MEDICARE, OTHER, SELFPAY ==
[2024-10-06 15:18] VITALS: BMI 33.6
--- NOTE | 2024-10-12 14:39 | BI_ITS ---
PROCEDURE: SCRN MAMM (CAD)W/MARS BILAT REASON FOR EXAM: F, Age 74 y/o, no family history. Routine annual follow-up examination. TECHNIQUE: Bilateral screening digital breast tomosynthesis with 2D and 3D images. Computer aided detection. COMPARISON: Prior exam(s) dating back to September 26, 2023.. FINDINGS: The breasts are almost entirely fatty. Stable examination. No suspicious masses, areas of developing architectural distortion, or suspicious calcifications. BI/SCRN MAMM (CAD)W/MARS BILAT IMPRESSION: BI-RADS 1: NEGATIVE. RECOMMEND ANNUAL MAMMOGRAPHIC SCREENING. Follow-up code: Routine Follow-up The patient will be notified of the results by letter. Reading Location: [id number]
== END | disposition home or self-care (01) ==
LOC: OPBI 14:38
PROVIDERS: PCP Internal Medicine; Referring Provider Internal Medicine; Visit Provider Internal Medicine
DX: Z12.31 Encounter for screening mammogram for malignant neoplasm of breast (principal)
CPT/HCPCS: 77063; 77067

== ENCOUNTER 2025-04-17 22:52 | Inpatient (IN) | payer MEDICARE, OTHER, SELFPAY ==
[2024-10-06 15:18] VITALS: BMI 33.6
[2025-04-17 22:53] VITALS: BP 142/85; PULSE 117; RESP 20; TEMP 37.6; O2SAT 92; BMI 34.0
--- NOTE | 2025-04-17 23:08 | EKG12_ITS ---
Test Reason : FEVER Blood Pressure : */* mmHG Vent. Rate : 103 BPM Atrial Rate : 103 BPM P-R Int : 192 ms QRS Dur : 92 ms QT Int : 344 ms P-R-T Axes : 22 -37 36 degrees QTcB Int : 450 ms Sinus tachycardia Left axis deviation Possible Lateral infarct , age undetermined Inferior infarct (cited on or before 11-Sep-2005) Abnormal ECG Confirmed by Gentry Manzo ([id number]), slot editor VASILE HENRY ([id number]) on 04/20/2025 10:34:23 AM Referred By: Confirmed By: Gentry Manzo
--- NOTE | 2025-04-17 23:09 | EX.ED.DYSGE1 ---
HPI History of Present Illness Chief Complaint: Fever Narrative Narrative: Patient is a 74-year-old female presenting to the emergency department for fever that started today. Patient has a past medical history of hypertension, hyperlipidemia, TIA, hypothyroidism, NSTEMI, Takotsubo's cardiomyopathy, C. difficile and cellulitis. Patient states that since Saturday she has had a head cold. She describes only rhinorrhea is her symptom. Reports that today around 4 PM she started to feel crappy. Reports that she then began checking her temperature this evening and it got up to 102. Reports that she took Tylenol around 8:30 PM. She denies any recent travel or sick contacts. Denies any cough, sore throat, chest pain or shortness of breath. Denies any GI symptoms including abdominal pain, nausea, vomiting, diarrhea. Denies any dysuria or hematuria. Denies any wounds or rashes. States that the last time this happened she had cellulitis of her right lower leg and was placed on antibiotics and then developed C. difficile afterwards. Reports she wanted to get ahead of it this time. [facility] Medical History Recurrent Clostridioides difficile diarrhea Hammer toe TIA (transient ischemic attack) Psoriasis Thyroid disease GERD (gastroesophageal reflux disease) Osteopenia Neuropathy Carpal tunnel syndrome Arthritis Atherosclerosis of coronary artery of [place] heart without angina pectoris Non-STEMI (non-ST elevated myocardial infarction) (~07/2017) Hypertension Hyperlipidemia Home Medications ?Medication ?Instructions ?Recorded ?Last Taken ?Type aspirin 81 mg chewable tablet 81 mg PO DAILY@0800 ##90 07/26/17 04/26/24 Rx cholecalciferol (vitamin D3) 125 125 mcg PO DAILY 07/04/21 01/12/24 History mcg (5,000 unit) tablet levothyroxine 75 mcg tablet 75 mcg PO DAILY #90 tabs 09/04/24 Unknown Rx lisinopril 20 0.5 tab PO QDAY #45 tabs 10/27/24 Unknown Rx mg-hydrochlorothiazide 12.5 mg tablet atorvastatin 20 mg tablet 20 mg PO QHS #90 tabs 02/01/25 Unknown Rx estradiol 0.01% (0.1 mg/gram) 1 g vaginal .COMPLEX #42.5 grams 02/01/25 Unknown Rx vaginal cream trazodone 50 mg tablet 50 mg PO QHS PRN insomnia #90 tabs 02/01/25 Unknown Rx carvedilol 3.125 mg tablet 3.125 mg PO BID #180 tabs 03/31/25 Unknown Rx multivitamin 1 tab PO QDAY 03/31/25 Unknown History psyllium husk 0.52 gram capsule 0.52 g PO DAILY PRN bm 03/31/25 Unknown History (Daily Fiber) Allergy/AdvReac Type Severity Reaction Status Date / Time Sulfa (Sulfonamide Allergy Rash Verified 04/17/25 22:53 Antibiotics) Family History Brother Alcoholism Myocardial infarction Kidney disease Multiple myeloma Mother Arthritis Blood clot in vein Father Cancer Renal & Skin Kidney disease Surgical History History of left knee replacement History of colonoscopy (07/02/17) History of tubal ligation History of tonsillectomy and adenoidectomy History of hysterectomy History of carpal tunnel surgery of right wrist History of bladder suspension procedure History of foot surgery Social History household members: spouse Smoking Status: Never smoker second hand exposure: No alcohol intake: current alcohol intake frequency: a few times a week Alcohol type: wine substance use type: does not use caffeine: Yes frequency: 3-4 times per week ROS ROS ED ROS Narrative see HPI EXAM Physical Exam Narrative Exam Narrative: Vital signs: Reviewed General: Alert and orientedx3. No acute distress HEENT: Head is normocephalic and atraumatic, sinuses nontender, pupils equal round and reactive. Nares are patent. Oropharynx and throat exams normal. Dry mucous membranes. Neck: Supple without lymphadenopathy nontender. Full active ROM of neck. No nuchal rigidity. Cardiovascular: Tachycardic rate and regular rhythm, no murmurs. No rubs or gallops. Normal S1 and S2 Respiratory: Clear to auscultation bilaterally. No wheezes, rales, rhonchi Abdominal: Soft and nontender. Normal bowel sounds. No guarding or rebound. Nonsurgical abdomen Extremities: No tenderness. No bruising. Normal range of motion. Normal sensation. Skin: No rash or redness. Neurological: Cranial nerves II through XII are grossly intact. Normal strength and sensation. Normal cerebellar function The rest of the physical exam is unremarkable Const Vital Signs: 04/17/25 22:53 04/17/25 22:53 04/17/25 23:31 Temperature 99.7 F H 99.7 F H Temperature Source Oral Oral Pulse Rate 117 H 117 H Respiratory Rate 20 H 20 H Respiratory Effort Normal Non-Labored Respiratory Pattern Normal Blood Pressure 142/85 H 142/85 H Blood Pressure Mean 104 104 Pulse Ox 92 92 Oxygen Delivery Method Room Air Room Air 04/18/25 00:05 04/18/25 02:00 04/18/25 02:00 Temperature 99.5 F H 98.1 F Temperature Source Oral Oral Pulse Rate 90 78 78 Respiratory Rate 15 19 H 19 H Respiratory Effort Respiratory Pattern Blood Pressure 123/73 H 123/70 H 123/70 H Blood Pressure Mean 89 87 87 Pulse Ox 94 98 98 Oxygen Delivery Method Room Air MDM MDM MDM Narrative Medical decision making narrative: Patient is a 74-year-old female presenting to the emergency department for fever. Patient was seen and examined. Vitals are stable. She is mildly tachycardic on initial evaluation at 117. She is afebrile at 99.7. Stable BP of 142/85. Saturating 92% on RA. RR of 20. Fluid bolus ordered for tachycardia. EKG shows sinus tachycardia at a rate of 103. No ischemic changes noted. No ST elevation or depression. No abnormal T wave inversions. No dysrhythmia. Motrin ordered as well. The only symptom patient is experiencing is rhinorrhea. Will obtain labs, lactic, chest x-ray, urinalysis and viral swab to rule out other sources of infection. CBC with markedly elevated leukocytosis of 25.7, neutrophils of 90.2%. BMP with mild hyponatremia of 131, present on previous labs. Fluids are running. Lactate within normal limits. Urinalysis with no evidence of infection. HR improved into the 80s-90s with fluids. With initial HR, RR, WBC of 25, does meet sepsis criteria. Unknown source at this time. Blood cultures obtained. Vancomycin and Zosyn started. Patient did inform me that last time she had antibiotics she developed C. difficile. I explained to her that this is a risk factor with most antibiotics. I discussed risks and benefits of antibiotics with the patient and she is agreeable with receiving them. With the markedly elevated white blood cell count I did order a CTA of the chest and abdomen pelvis to rule out other sources of infection. While waiting on the CT imaging to results notified by nursing staff that the patient noticed that she was developing some erythema of her right lower leg. She was reevaluated. There is some erythema extending from the right ankle to mid distal pereira. There is some mild warmth. No significant swelling. Pulses are intact. Motor and sensation intact. No crepitus. No evidence of necrotizing fasciitis. Discussed admission with the patient for possible sepsis and IV antibiotics. Patient agreeable. At time of admission CT imaging pending, will follow. Patient admitted to Dr. Calle for further management. Clinical impression: Possible sepsis Leukocytosis Cellulitis History & Record Review Discussion w/independent historian: Patient and Significant other Additional record(s) reviewed:: Prior ED visit Lab Data Attestation: I reviewed the patient's lab results. Labs: Laboratory Results - last 24 hr 04/17/25 04/18/25 23:24 00:20 WBC 25.7 H RBC 4.23 Hgb 14.0 Hct 39.0 MCV 92.2 MCH 33.1 H MCHC 35.9 RDW Std Deviation 46.6 H RDW Coeff of Tory 13.7 Plt Count 257 MPV 9.0 Immature Gran % (Auto) 1.500 H Neut % (Auto) 90.2 H Lymph % (Auto) 3.2 L [place] % (Auto) 4.9 Eos % (Auto) 0.0 Baso % (Auto) 0.2 Absolute Neuts (auto) 23.2 H Absolute Lymphs (auto) 0.82 L Nucleated RBC % 0 Differential Comment SCANNED Sodium 131 L Potassium 3.6 Chloride 97 L Carbon Dioxide 18.4 L Anion Gap 15 BUN 15 Creatinine 1.00 Estim Creat Clear Calc 55.54 Est GFR (MDRD) Non-Af 59 L BUN/Creatinine Ratio 15.4 Glucose 169 H Lactic Acid 1.0 Calcium 9.1 Urine Color Yellow Urine Clarity Clear Urine pH 7.0 Ur Specific [place] 1.010 Urine Protein 30 H Urine Glucose (UA) Normal Urine Ketones 15 H Urine Occult Blood 10 H Urine Nitrite Negative Urine Bilirubin Negative Urine Urobilinogen Normal Ur Leukocyte Esterase Negative Urine RBC 0 SEEN Urine WBC 0 SEEN Ur Squamous Epith Cells 0 SEEN Urine Bacteria RARE Urine Mucus 0 SEEN Radiography Chest X-Ray - ED: 2 View, Read by ED Physician, Normal, No Acute Disease and No Infiltrates Diagnostic Testing: Clinical Impression(s) from Imaging Studies Chest X-Ray 04/17/25 23:25 IMPRESSION: No evidence for acute abnormality. Reading Location: [place] [address] Discharge Plan Triage Chief Complaint: Fever ED Provider: Sharlene Rosado Dx/Rx/DC Orders Prescriptions: No Action cholecalciferol (vitamin D3) 125 mcg (5,000 unit) tablet 125 mcg PO DAILY multivitamin Tablet 1 tab PO QDAY carvedilol 3.125 mg tablet 3.125 mg PO BID Qty: 180 3RF aspirin 81 MG tablet,chewable 81 mg PO DAILY@0800 Qty: 90 0RF psyllium husk [Daily Fiber] 0.52 gram capsule 0.52 g PO DAILY PRN (Reason: bm) levothyroxine 75 mcg tablet 75 mcg PO DAILY Qty: 90 3RF lisinopril-hydrochlorothiazide 20-12.5 mg tablet 0.5 tab PO QDAY Qty: 45 3RF estradiol 0.01 % (0.1 mg/gram) cream 1 g vaginal .COMPLEX Qty: 42.5 1RF Rx Instructions: 1 g vaginal 1gm each night for 2 weeks, then 2x a week; NEEDED trazodone 50 mg tablet 50 mg PO QHS PRN (Reason: insomnia) Qty: 90 1RF atorvastatin 20 mg tablet 20 mg PO QHS Qty: 90 3RF Primary Care Provider: Jodie Yanes Referrals: Jodie Yanes MD [Primary Care Provider] - Print Language: Chinese
[2025-04-17] MEDS: 0.9% Normal Saline (1000mL) 1,000 ML 1000 ML IV (23:20)
--- NOTE | 2025-04-17 23:25 | RAD_ITS ---
PROCEDURE: CHEST PA AND LATERAL 04/17/2025 REASON FOR EXAM: FEVER TECHNIQUE: Procedure Code: RADCXR Modality: DX Procedure: CHEST PA AND LATERAL COMPARISON: Chest radiograph on 04/26/2024. FINDINGS: The lungs are expanded. There is no demonstrated parenchymal abnormality. There is no demonstrated pleural abnormality. Enlarged cardiac silhouette. Normal mediastinum and carlos. Normal visualized pulmonary arteries. Atheromatous plaques of the visualized aortic arch and descending thoracic aorta. Diffuse spondylosis of the visualized thoracic spine. Increased dorsal kyphosis. Normal visualized ribs, clavicles. Degenerative joint disease. There is no demonstrated abnormality of the visualized soft tissue structures of the upper abdomen. RAD/Chest PA and Lateral IMPRESSION: No evidence for acute abnormality. Reading Location[facility]
--- OUTSIDE RECORDS SUMMARY | 2025-04-17 23:42 | XMS RPT_ITS | CCD ---
Author Organization [facility] Care Team Providers Care Design Director Name Role Phone PATRICIO DUENAS DR Admitting Unavailable PATRICIO DUENAS DR Primary Care Unavailable PATRICIO DUENAS DR Attending Unavailable PATRICIO DUENAS DR Primary Care Unavailable PATRICIO DUENAS DR Attending Unavailable PATRICIO DEUNAS DR Admitting Unavailable PATRICIO DUENAS DR Primary Care Unavailable PATRICIO DUENAS DR Attending Unavailable PATRICIO DUENAS DR Admitting Unavailable PATRICIO DUENAS DR Admitting Unavailable PATRICIO DUENAS DR Primary Care Unavailable PATRICIO DUENAS DR Attending Unavailable PATRICIO DUENAS DR Primary Care Unavailable PATRICIO DUENAS DR Attending Unavailable PATRICIO DUENAS DR Admitting Unavailable PATRICIO DUENAS DR Admitting Unavailable PATRICIO DUENAS DR Primary Care Unavailable PATRICIO DUENAS DR Attending Unavailable CHIRAG, DR SELVIN Duffy Admitting Unavaila ble CHIRAG, DR SELVIN Duffy Primary Care Unavaila ble CHIRAG, DR SELVIN Duffy Attending Unavaila ble SRINIVAS JACOBS Consulting Unavailable PROVIDER, UNKNOWN Consulting Unavailable Dr. Srinivas Jacobs Primary Care Provider [phone] Dr. Srinivas Jacobs Referring Provider [phone] MER Mantilla Attending Provider MER Mantilla Referring Provider MER Mantilla Other Provider [phone] Dr. Prateek Bender Attending Provider [phone] MER Bautista Attending Provider Unavailab Dr. Abran Norman Attending Provider [phone] Dr. Abran Yanes Primary Care Provider Dr. Abran Yanes Attending Provider [phone] Dr. Abran Yanes Referring Provider [phone] Dr. Srinivas Jacobs Referring Provider [phone] Adryan DEL ANGEL, PA Janiya Vazquez Attending Provider Dr. Abran Yanes Primary Care Provider Dr. Abran Yanes Primary Care Provider Dr. Abran Yanes Attending Provider [phone] Dr. Abran Yanes Referring Provider [phone] Caleb DEL ANGEL, PA Francisco Vazquez Attending Provider Dr. Abran Yanes Primary Care Provider Dr. Abran Yanes Attending Provider [phone] Abran Yanes MD Primary Care Provider [phone] JULIUS MAGALLANES Attending Unavailable ABRAN YANES Primary Care Unavailable CANDICE CARTER Referring Unavailable ABRAN YANES Referring Unavailable ABRAN YANES Primary Care Unavailable CANDICE CARTER Attending Unavailable Dr. Abran Yanes MD Primary Care Provider Dr. Abran Yanes MD Attending Provider Bela Tony Attending Provider [phone] Bela Tony Referring Provider [phone] Dr. Dash Prabhakar MD Attending Provider [phone] Dr. Dash Prabhakar MD Referring Provider [phone] Dr. Abran Yanes MD Referring Provider Dr. Abran Yanes MD Primary Care Provider Dr. Abran Yanes MD Referring Provider Janiya Mantilla Attending Provider [phone] Dr. Abran Yanes MD Attending Provider Abran Yanes Primary Care Unavailable Liliya Ballard Admitting Unavailable Beatris Atkins Attending Unavailable Dash Prabhakar Consulting Unavailable Liliya Ballard Consulting Unavailable Beatris Atkins Consulting Unavailable Farzana, Abran Primary Care Unavailable Aki, [place] Attending Unavailable Liliya Ballard Referring Unavailable Aki, [place] Attending Unavailable Farzana, Abran Primary Care Unavailable Farzana, Abran Primary Care Unavailable Farzana, Abran Referring Unavailable Janiya Mantilla Attending Unavail able Aki, Dash Referring Unavailable Aki, Dash Attending Unavailable Farzana, Abran Primary Care Unavailable Farzana, Abran Primary Care Unavailable Aki, Dash Attending Unavailable Aki, [place] Referring Unavailable Farzana, Abran Primary Care Unavailable Aki, [place] Referring Unavailable Aki, [place] Attending Unavailable Aki, [place] Attending Unavailable Farzana, Abran Primary Care Unavailable Farzana, Abran Primary Care Unavailable Farzana, Abran Attending Unavailable Farzana, Abran Referring Unavailable Gentry Manzo Attending Unavailable Farzana, Abran Primary Care Unavailable Aki, [place] Referring Unavailable Aki, [place] Attending Unavailable Farzana, Abran Primary Care Unavailable Bela Roberson NP Referring Unavailable Da COSTA, Bela Attending Unavailable Farzana, Abran Primary Care Unavailable Farzana, Abran Referring Unavailable Farzana, Abran Attending Unavailable Farzana, Abran Primary Care Unavailable Gentry Manzo Referring Unavailable Gentry Manzo Attending Unavailable Farzana, Abran Primary Care Unavailable Farzana, Abran Primary Care Unavailable Liliya Ballard Admitting Unavailable Beatris Atkins Attending Unavailable Aki, [place] Consulting Unavailable Liliya Ballard Consulting Unavailable Farzana, Abran Primary Care Unavailable Aki, [place] Attending Unavailable Aki, [place] Referring Unavailable Aki, Dash Referring Unavailable Aki, Dash Attending Unavailable Farzana, Abran Primary Care Unavailable Farzana, Abran Attending Unavailable Farzana, Abran Primary Care Unavailable Gentry Manzo Referring Unavailable Gentry Manzo Attending Unavailable Farzana, Abran Primary Care Unavailable Farzana, Abran Primary Care Unavailable Farzana, Abran Referring Unavailable Farzana, Abran Attending Unavailable Farzana, Abran Primary Care Unavailable Farzana, Abran Attending Unavailable Farzana, Abran Referring Unavailable Da COSTA, Bela Attending Unavailable Farzana, Abran Primary Care Unavailable Farzana, Abran Primary Care Unavailable Farzana, Abran Referring Unavailable Aki, [place] Attending Unavailable Farzana, Abran Primary Care Unavailable Liliya Ballard Attending Unavailable Dash Prabhakar Attending Unavailable Allergies Allergy Classification Reported Allergen(s) Allergy Type Date of Onset Reaction(s) Facility (1 source) Sulfonamides (Antibiotic) Drug allergy (disorder) [facility] Repository (15 sources) Sulfonamides (Antibiotic); Translations: [SULFA (SULFONAMIDE ANTIBIOTICS)] Allergy to substance [facility] Medications Current Medications Medication Drug Class(es) Dates Sig (Normalized) Sig (Original) aspirin 81 mg chewable tablet (20 sources) Platelet Aggregation Inhibitor, Nonsteroidal Anti-inflammatory Drug Start: 07-26-2017 take 1 tablet by mouth once daily Aspirin 81 MG tablet,chewable Active 81 mg PO DAILY@0800 90 0 July 26, 2017 1:00am Start: 03-27-2015 End: 07-26-2017 take 1 tablet by mouth once daily Aspirin 325 MG tablet Discontinued 325 mg PO DAILY@0800 March 27, 2015 12:00am July 26, 2017 10:38am Start: 10-23-2005 ECOTRIN 325 MG TAB Take one (1) tablet daily. 0 10/23/2005 Active carvedilol 3.125 mg oral tablet (11 sources) alpha-Adrenergic Karma, beta-Adrenergic Karma Start: 05-25-2024 take 1 tablet by mouth every twelve hours carvedilol (COREG) 3.125 mg tablet Take 1 tablet by mouth every 12 hours. 05/25/2024 Active Start: 04-28-2024 End: 03-31-2025 take 1 tablet by mouth twice daily Carvedilol 3.125 mg tablet Discontinued 3.125 mg PO TWICE A DAY 180 3 May 25, 2024 8:23am March 31, 2025 2:52pm cholecalciferol 0.125 mg oral tablet (20 sources) Vitamin D Start: 07-04-2021 take 1 tablet by mouth once daily Cholecalciferol (Vitamin D3) 125 mcg (5,000 unit) tablet Active 125 ug PO DAILY July 04, 2021 1:00am Start: 09-10-2018 End: 07-04-2021 take 1 capsule by mouth once daily Cholecalciferol (Vitamin D3) 2,000 unit capsule Discontinued 2000 U PO DAILY September 10, 2018 1:00am July 04, 2021 11:34am ciclopirox 0.0077 mg/mg topical gel (3 sources) Start: 07-09-2024 Ciclopirox (LOPROX) 0.77 % gel Apply a small amount to affected area twice a day to nails 07/09/2024 Active DAILY MULTIVITAMIN TAB (3 sources) Start: 09-11-2005 DAILY MULTIVITAMIN TAB Take one(1) tablet daily. 0 09/11/2005 Active fecal microbio spore, live-brpk (VOWST) capsule (1 source) Start: 09-01-2024 End: 09-04-2024 take 4 capsules by mouth once daily fecal microbio spore, live-brpk (VOWST) capsule Indications: Recurrent Clostridioides difficile infection Take 4 capsules by mouth once daily for 3 days. Start 2-4 days after completion of C. difficile treatment regimen. 12 capsule 09/01/2024 09/04/2024 Active hydroCHLOROthiazide 12.5 mg / lisinopril 20 mg oral tablet (20 sources) Thiazide Diuretic, Angiotensin Converting Enzyme Inhibitor Start: 10-27-2024 Lisinopril-Hydroch lorothiazide 20-12.5 mg tablet Active 0.5 {tbl} PO daily 45 3 October 27, 2024 12:00am Start: 10-27-2024 End: 10-27-2024 Lisinopril-Hydrochlorothiazi de 10-12.5 mg tablet Discontinued 0.5 {tbl} PO daily 45 3 October 27, 2024 12:00am October 27, 2024 8:42am Start: 11-05-2017 End: 05-13-2024 Lisinopril-Hydrochlorothiazi de 20-12.5 mg tablet Discontinued 0.5 {tbl} PO DAILY 90 November 28, 2023 11:08am May 13, 2024 12:58pm Start: 11-05-2017 End: 12-17-2022 take 0.5 tablet by mouth once daily Lisinopril-Hydrochlorothiazide Discontin ued 0.5 TABLET PO DAILY 90 September 25, 2021 8:57am December 17, 2022 6:58am Lactobacillus acidophilus (3 sources) Lactobacillus acidophilus (PROBIOTIC ORAL) Take by mouth. Active lisinopril 20 mg oral tablet (9 sources) Angiotensin Converting Enzyme Inhibitor Start: 07-10-20 take 1 tablet by mouth once lisinopril (ZESTRIL) 20 mg tablet Take 1 tablet by mouth every afternoon. 07/10/2024 Active Start: 05-13-2024 End: 10-27-2024 take 10 mg by mouth once daily Lisinopril 20 mg tablet Discontinued 10 mg PO daily 18 07May 13, 2024 3:08pm October 27, 2024 8:40am Start: 05-13-2024 End: 05-13-2024 take 1 tablet by mouth once daily Lisinopril 20 mg tablet Discontinued 20 mg PO daily 18 07May 13, 2024 12:00am May 13, 2024 3:08pm Multivitamin tablet (2 sources) Start: 03-31-2025 Multivitamin t ablet Active 1 {tbl} PO daily March 31, 2025 12:00am Jisqjkuzrapq-Fi-Crun-Mineral s (7 sources) Start: 03-27-2015 Multivitamin-C p-Rgjq-Gcnhakkl Active 1 EACH PO DAILY March 26, 2015 11:00pm Start: 03-27-2015 Multivitamin-C a-Hmcd-Trobcwmx Active 1 EACH PO DAILY March 27, 2015 12:00am Completed/Discontinued Medications Medication Drug Class(es) Dates Sig (Normalized) Sig (Original) 8 hr acetaminophen 650 mg extended release oral tablet (10 sources) Start: 07-11-2021 End: 01-12-2024 take 1 tablet by mouth every eight hours Acetaminophen (Tylenol 8 Hour) 650 mg tablet extended release Discontinued 650 mg PO Q8H July 11, 2021 1:00am January 12, 2024 4:29pm acetaminophen 325 mg / oxyCODONE hydrochloride 5 mg oral tablet (10 sources) Opioid Agonist Start: 10-17-2021 End: 02-07-2022 Oxycodone-Acetamino phen (Percocet) 5-325 mg tablet Discontinued 1 {tbl} PO AT BEDTIME as needed October 17, 2021 1:00am February 07, 2022 3:00pm [id number] 200 actuat albuterol 0.09 mg/actuat metered dose inhaler (9 sources) beta2-Adrenergic Agonist Start: 03-07-2022 End: 10-11-2022 Albuterol Sulfate 90 mcg/actuation HFA aerosol inhaler Discontinued 1 - 2 NMA INHALATION EVERY 6 HOURS as needed for shortness of breath or wheezing 8.5 0 March 07, 2022 12:00am October 11, 2022 12:27pm Start: 03-07-2022 End: 10-11-2022 take 1 puff(s) by inhalation every six hours Albuterol Sulfate Discontinued 1 - 2 PUFF INHALATION EVERY 6 HOURS 8.5 March 06, 2022 11:00pm October 11, 2022 11:27am alendronic acid 35 mg oral tablet (20 sources) Bisphosphonate Start: 10-31-2020 End: 04-27-2024 take 1 tablet by mouth every week Alendronate 35 mg tablet Discontinued 35 mg PO EVERY WEEK 30 2 November 28, 2023 11:08am January 12, 2024 4:32pm atorvastatin 20 mg oral tablet (20 sources) HMG-CoA Reductase Inhibitor Start: 10-02-2018 End: 02-01-2025 take 1 tablet by mouth at bedtime Atorvastatin 20 mg tablet Discontinued 20 mg PO AT BEDTIME 90 3 August 06, 2024 10:40am February 01, 2025 2:13pm Start: 09-10-2018 End: 10-02-2018 Atorvastatin 40 mg tablet Discontinued 20 mg PO AT BEDTIME September 10, 2018 3:25pm October 02, 2018 4:31pm Start: 09-10-2018 End: 10-02-2018 take 20 mg by mouth at bedtime Atorvastatin Discontinu ed 20 MG PO AT BEDTIME September 10, 2018 2:25pm October 02, 2018 3:31pm Start: 07-26-2017 End: 09-10-2018 take 1 tablet by mouth at bedtime Atorvastatin 40 MG tablet Discontinued 40 mg PO AT BEDTIME 90 0 July 26, 2017 1:00am September 10, 2018 3:27pm Start: 07-24-2017 End: 07-26-2017 take 1 tablet by mouth at bedtime Atorvastatin 10 MG tablet Discontinued 10 mg PO AT BEDTIME July 24, 2017 1:00am July 26, 2017 10:38am b complex (9 sources) Start: 05-03-2022 End: 01-12-2024 b complex Discontinued PO Se ptember 2021 12:00am January 12, 2024 4:37pm Start: 05-03-2022 End: 01-12-2024 b complex Discontinued PO Se pt2021 11:00pm January 12, 2024 3:37pm Start: 05-03-2022 b complex Acti ve PO May 02, 2022 11:00pm Start: 05-03-2022 b complex Acti ve PO May 03, 2022 12:00am Ca Carb-Ca Gluc-Mg Ox-Mg Gluco (7 sources) Start: 03-27-2015 End: 06-09-2018 take 1 mg by mouth once daily Ca Carb-Ca Gluc-Mg Ox-Mg Gluco Discontinued 1 EACH PO DAILY March 26, 2015 11:00pm June 09, 2018 10:47am Start: 03-27-2015 End: 06-09-2018 take 1 mg by mouth once daily Ca Carb-Ca Gluc-Mg Ox-Mg Gluco Discontinued 1 EACH PO DAILY March 27, 2015 12:00am June 09, 2018 11:47am Calcium Carb,Gluc-Mag Gluc,Ox 1 EACH tablet (3 sources) Start: 03-27-2015 End: 06-09-2018 take 1 tablet by mouth once daily Calcium Carb,Gluc-Mag Gluc,Ox 1 EACH tablet Discontinued 1 NMA PO DAILY March 27, 2015 12:00am June 09, 2018 11:47am Start: 03-27-2015 End: 06-09-2018 take 1 tablet by mouth once daily Calcium Carb,Gluc-Mag Gluc,Ox 1 EACH tablet Discontinued 1 NMA PO DAILY March 26, 2015 11:00pm June 09, 2018 10:47am calcium carbonate 1500 mg oral tablet (1 source) Start: 07-04-2009 End: 07-20-2024 calcium carbonate(CALTRATE 600 600 MG (1,500 MG) TAB) Take one(1) tablet twice daily. 0 07/04/2009 07/20/2024 Discontinued cephalexin 500 mg oral capsule (13 sources) Cephalosporin Antibacterial Start: 01-15-2024 End: 02-05-2024 take 1 capsule by mouth three times daily Cephalexin 500 mg capsule Discontinued 500 mg PO THREE TIMES A DAY 21 0 January 15, 2024 12:00am February 05, 2024 10:34am Start: 02-09-2020 End: 03-01-2020 take 1 capsule by mouth three times daily Cephalexin 500 mg capsule Discontinued 500 mg PO THREE TIMES A DAY 21 0 February 09, 2020 12:00am March 01, 2020 8:07am clopidogrel 75 mg oral tablet (10 sources) [id number] Platelet Inhibitor Start: 07-26-2017 End: 06-09-2018 take 1 tablet by mouth once daily Clopidogrel 75 MG tablet Discontinued 75 mg PO DAILY 90 0 July 26, 2017 1:00am June 09, 2018 11:46am codeine phosphate 2 mg/ml / guaiFENesin 20 mg/ml oral solution (20 sources) Opioid Agonist Start: 03-07-2022 End: 10-11-2022 take 1 mL by mouth every six hours as needed for cough Codeine-Guaifenesin 10-100 mg/5 mL liquid Discontinued 5 mL PO EVERY 6 HOURS as needed for cough 120 0 March 15, 2022 8:43am October 11, 2022 12:27pm Start: 03-07-2022 End: 10-11-2022 take 1 mL by mouth every six hours Codeine-Guaifenesin Discontinued 5 ML PO EVERY 6 HOURS 120 March 15, 2022 7:43am October 11, 2022 11:27am docusate sodium 100 mg oral capsule (1 source) Start: 11-10-2010 End: 07-20-2024 take 1 capsule by mouth twice daily docusate sodium (COLACE) 100 mg ORAL capsule Take 1 capsule by mouth twice daily. 60 capsule 6 11/10/2010 07/20/2024 Discontinued doxycycline hyclate 100 mg oral capsule (10 sources) Tetracycline-cla ss Drug Start: 02-09-2020 End: 03-01-2020 take 1 capsule by mouth twice daily Doxycycline Hyclate 100 mg capsule Discontinued 100 mg PO TWICE A DAY 14 0 February 09, 2020 12:00am March 01, 2020 8:07am estradiol 0.1 mg/ml vaginal cream (20 sources) Estrogen Start: 03-14-2021 End: 02-01-2025 Estradiol 0.01 % (0.1 mg/gram) cream Discontinued 1 g VAGINAL .COMPLEX 42.5 0 May 13, 2023 9:55am January 12, 2024 4:32pm 1 g vaginal 1gm each night for 2 weeks, then 2x a week; estrogen cream (10 sources) Start: 10-01-2019 End: 03-14-2021 estrogen cream Discontinued VAGINAL 0 October 01, 2019 1:00am March 14, 2021 11:26am Start: 10-01-2019 End: 03-14-2021 estrogen cream Discontinued VAGINAL October 01, 2019 12:00am March 14, 2021 10:26am Start: 10-01-2019 End: 03-14-2021 estrogen cream Discontinued VAGINAL October 01, 2019 1:00am March 14, 2021 11:26am famotidine 20 mg oral tablet (20 sources) Histamine-2 Receptor Antagonist Start: 01-12-2024 End: 04-26-2024 take 1 tablet by mouth once daily as needed for gastroesophageal reflux disease Famotidine (Acid Controller) 20 mg tablet Discontinued 20 mg PO DAILY as needed for heartburn January 12, 2024 12:00am April 26, 2024 11:09pm Start: 10-02-2018 End: 07-04-2021 take 1 tablet by mouth once daily as needed Famotidine 10 mg tablet Discontinued 10 mg PO DAILY as needed for Indigestion July 09, 2019 11:07am July 04, 2021 11:35am fidaxomicin 200 mg oral tablet (6 sources) Macrolide Antibacterial Start: 07-23-2024 End: 08-02-2024 take 1 tablet by mouth every twelve hours Fidaxomicin (Dificid) 200 mg tablet Discontinued 200 mg PO Q12H 20 10 0 July 23, 2024 1:00am August 01, 2024 1:00am August 02, 2024 1:08am Recurrent C diff infection Start: 07-20-2024 take 1 tablet by hedy twice daily fidaxomicin (DIFICID) 200 mg tablet Indications: Recurrent Clostridioides difficile infection Take 1 tablet by mouth two times a day. 10 tablet 07/20/2024 Active Flucinonide Cream (10 sources) Start: 10-02-2018 End: 01-01-2019 Flucinonide Cream Discontinu ed ID 0 October 02, 2018 1:00am January 01, 2019 3:02pm Start: 10-02-2018 End: 01-01-2019 Flucinonide Cream Discontinu ed ID October 02, 2018 12:00am January 01, 2019 2:02pm Start: 10-02-2018 End: 01-01-2019 Flucinonide Cream Discontinu ed ID October 02, 2018 1:00am January 01, 2019 3:02pm hydroCHLOROthiazide 12.5 mg / quinapril 20 mg oral tablet (11 sources) Thiazide Diuretic, Angiotensin Converting Enzyme Inhibitor Start: 03-27-2015 End: 11-05-2017 take 0.5 tablet by mouth once daily Quinapril-Hydrochlorothiazide Discontinued 0.5 TABLET PO DAILY March 26, 2015 11:00pm November 05, 2017 9:22am Start: 02-10-2007 End: 07-20-2024 Quinapril-Hydrochlorothiazid e 1 TAB tablet Discontinued 0.5 {tbl} PO DAILY March 27, 2015 12:00am November 05, 2017 10:22am lactobacillus combination no .6 4 billion cell tablet (7 sources) Start: 10-02-2018 End: 07-09-2019 lactobacillus combination no .6 4 billion cell tablet Discontinued CELL PO October 02, 2018 12:00am July 09, 2019 10:07am Start: 10-02-2018 End: 07-09-2019 lactobacillus combination no .6 4 billion cell tablet Discontinued CELL PO October 02, 2018 1:00am July 09, 2019 11:07am Lactobacillus Combo No.6 4 billion cell tablet (3 sources) Start: 10-02-2018 End: 07-09-2019 Lactobacillus Combo No.6 4 billion cell tablet Discontinued NMA PO 0 October 02, 2018 1:00am July 09, 2019 11:07am Start: 10-02-2018 End: 07-09-2019 Lactobacillus Combo No.6 4 b illion cell tablet Discontinued NMA PO October 02, 2018 12:00am July 09, 2019 10:07am levothyroxine sodium 0.075 mg oral tablet (20 sources) l-Thyroxine Start: 11-19-2005 End: 09-04-2024 take 1 tablet by mouth once daily Levothyroxine 75 mcg tablet Discontinued 75 ug PO DAILY 90 September 11, 2023 10:19am September 04, 2024 2:02pm meloxicam 15 mg oral tablet (20 sources) Nonsteroidal Anti-inflammatory Drug Start: 09-10-2018 End: 07-04-2021 take 1 tablet by mouth once daily as needed for pain Meloxicam 15 mg tablet Discontinued 15 mg PO DAILY as needed for pain 90 3 August 04, 2020 5:37pm July 04, 2021 11:35am metoprolol tartrate 25 mg oral tablet (20 sources) beta-Adrenergic Karma Start: 07-26-2017 End: 04-28-2024 Metoprolol Tartrate 25 mg tablet Discontinued 12.5 mg PO TWICE A DAY 90 3 March 31, 2024 6:19pm April 28, 2024 10:29am Start: 07-26-2017 End: 04-09-2023 take 12.5 mg by mouth twice daily Metoprolol Tartrate Discontinued 12.5 MG PO TWICE A DAY 90 April 06, 2022 6:54am April 09, 2023 8:13am metroNIDAZOLE 500 mg oral tablet (10 sources) Nitroimidazole Antimicrobial Start: 05-31-2021 End: 06-07-2021 take 1 tablet by mouth three times daily Metronidazole 500 mg tablet Discontinued 500 mg PO THREE TIMES A DAY 21 7 0 May 31, 2021 12:00am June 06, 2021 12:00am June 07, 2021 12:01am Yjxldjryrmsb-Kp-Hca n-Minerals 1 EACH tablet (3 sources) Start: 03-27-2015 End: 01-12-2024 take 1 tablet by mouth once daily Ruqtiqvssyyi-Jq-Ha on-Minerals 1 EACH tablet Discontinued 1 NMA PO DAILY March 27, 2015 12:00am January 12, 2024 4:30pm Start: 03-27-2015 End: 01-12-2024 take 1 tablet by mouth once daily Ayfvpigvdspe-Nx-Zbwl-Minerals 1 EACH tab let Discontinued 1 NMA PO DAILY March 26, 2015 11:00pm January 12, 2024 3:30pm nitrofurantoin, macrocrystals 25 mg / nitrofurantoin, monohydrate 75 mg oral capsule (6 sources) Nitrofuran Antibacterial Start: 07-23-2023 End: 07-28-2023 take 1 capsule by mouth every twelve hours at mealtime Nitrofurantoin Monohyd/M-Cryst (Macrobid) 100 mg capsule Discontinued 100 mg PO Q12H 10 5 0 July 23, 2023 1:00am July 27, 2023 1:00am July 28, 2023 1:04am must administer with a meal/food psyllium 520 mg oral capsule (20 sources) Start: 03-21-2021 End: 03-31-2025 Psyllium Husk (Daily Fiber) 0.52 gram capsule Discontinued 0.52 g PO DAILY January 12, 2024 12:00am March 31, 2025 2:34pm bm simvastatin 20 mg oral tablet (1 source) HMG-CoA Reductase Inhibitor Start: 07-04-2009 End: 07-20-2024 SIMVASTATIN 20 MG TAB one tablet daily 0 07/04/2009 07/20/2024 Discontinued spironolactone 25 mg oral tablet (9 sources) Aldosterone Antagonist Start: 05-11-2024 End: 10-27-2024 Spironolactone 25 mg tablet Discontinued 12.5 mg PO daily 90 3 May 11, 2024 1:23pm October 27, 2024 8:41am Start: 04-30-2024 End: 05-11-2024 take 1 tablet by mouth once daily Spironolactone 25 mg tablet Discontinued 25 mg PO daily 90 3 April 30, 2024 12:00am May 11, 2024 1:24pm traZODone hydrochloride 50 mg oral tablet (20 sources) Serotonin Reuptake Inhibitor Start: 01-07-2024 End: 02-01-2025 take 1 tablet by mouth at bedtime as needed Trazodone 50 mg tablet Discontinued 50 mg PO AT BEDTIME as needed for insomnia 30 1 December 08, 2024 2:25pm February 01, 2025 2:13pm Start: 10-25-2021 End: 01-07-2024 Trazodone 50 mg tablet Disco ntinued 75 mg PO AT BEDTIME as needed for insomnia 120 2 November 28, 2023 11:08am January 07, 2024 11:35am Start: 10-25-2021 End: 01-29-2023 take 75 mg by mouth at bedtime Trazodone Discontinued 75 MG PO AT BEDTIME 120 May 03, 2022 1:18pm January 29, 2023 12:43pm Start: 07-11-2021 End: 10-25-2021 take 1 tablet by mouth at bedtime as needed Trazodone 50 mg tablet Discontinued 50 mg PO AT BEDTIME as needed for insomnia 30 2 July 11, 2021 1:00am October 25, 2021 9:31am vancomycin 125 mg oral capsule (16 sources) Glycopeptide Antibacterial Start: 07-28-2024 End: 03-31-2025 take 1 capsule by mouth every six hours Vancomycin 125 mg capsule Discontinued 125 mg PO EVERY 6 HOURS July 28, 2024 1:00am March 31, 2025 2:33pm Start: 07-09-2024 End: 07-20-2024 take 1 capsule by mouth every six hours vancomycin (VANCOCIN) 125 mg capsule Take 1 capsule by mouth every 6 hours for 28 days 07/09/2024 07/20/2024 Discontinued Start: 05-21-2024 End: 06-18-2024 take 1 capsule by mouth every six hours Vancomycin 125 mg capsule Discontinued 125 mg PO EVERY 6 HOURS 112 28 0 May 21, 2024 1:52pm June 17, 2024 12:00am June 18, 2024 12:08am Colitis due to Clostridioides difficile Enterocolitis due to Clostridium difficile, not specified as recurrent Start: 03-26-2024 End: 04-26-2024 take 1 capsule by mouth every other day Vancomycin 125 mg capsule Discontinued 125 mg PO As Directed 60 0 March 26, 2024 1:13pm April 26, 2024 11:09pm Take one cap every other day as directed. Start: 02-12-2024 End: 03-11-2024 take 1 capsule by mouth every six hours Vancomycin 125 mg capsule Discontinued 125 mg PO EVERY 6 HOURS 112 28 0 February 12, 2024 8:58pm March 10, 2024 12:00am March 11, 2024 12:04am Start: 01-20-2024 End: 02-05-2024 take 1 capsule by mouth every six hours Vancomycin 125 mg capsule Discontinued 125 mg PO EVERY 6 HOURS 56 14 0 January 20, 2024 12:00am February 05, 2024 10:34am Vitamin B Complex (Complex B-100) tablet extended release (3 sources) Start: 01-12-2024 End: 03-31-2025 Vitamin B Complex (Complex B -100) tablet extended release Discontinued 1 {tbl} PO DAILY January 12, 2024 12:00am March 31, 2025 2:33pm Start: 01-12-2024 Vitamin B Comp ahmet (Complex B-100) tablet extended release Active 1 {tbl} PO DAILY January 11, 2024 11:00pm zolpidem tartrate 10 mg oral tablet (20 sources) gamma-Aminobutyric Acid-ergic Agonist Start: 03-13-2021 End: 07-04-2021 take 5 mg by mouth at bedtime as needed Zolpidem 10 mg tablet Discontinued 5 mg PO AT BEDTIME as needed for insomnia 30 0 March 13, 2021 4:10pm July 04, 2021 11:36am Insomnia, unspecified Start: 03-13-2021 End: 07-04-2021 take 5 mg by mouth at bedtime Zolpidem Discontinued 5 MG PO AT BEDTIME 30 March 13, 2021 3:10pm July 04, 2021 10:36am Start: 07-08-2019 End: 03-13-2021 take 1 tablet by mouth at bedtime as needed Zolpidem 5 mg tablet Discontinued 5 mg PO AT BEDTIME as needed for insomnia 60 0 December 27, 2020 4:35pm March 13, 2021 4:11pm Insomnia, unspecified Start: 10-02-2018 End: 07-08-2019 Zolpidem 10 mg tablet Discon tinued 0 PO AT BEDTIME 0 October 02, 2018 1:00am July 08, 2019 9:57am 1/2-1 PO QHS; Start: 07-24-2017 End: 10-02-2018 take 1 tablet by mouth at bedtime as needed for sleep Zolpidem 5 MG tablet Discontinued 5 mg PO AT BEDTIME NEEDED as needed for Sleep July 24, 2017 1:00am October 02, 2018 3:53pm Problems Active Problems Problem Classification Problem Date Documented Da te Episodic/Chronic Abdominal pain (10 sources) Abdominal pain; Translations: [Unspecified abdominal pain] 06-07-2021 Episodic Acute myocardial infarction (20 sources) Myocardial infarction; Translations: [Non-ST elevation (NSTEMI) myocardial infarction] Onset: Chronic Administrative/social admission (10 sources) Persons encountering health services in other specified circumstances; Translations: [Other reasons for seeking consultation] Episodic Bacterial infection; unspecified site (3 sources) Recurrent Clostridium difficile infection; Translations: [Other bacterial infections of unspecified site] Onset: 5 07-20-2024 Episodic Biliary tract disease (10 sources) Gallstone; Translations: [Calculus of gallbladder without cholecystitis without obstruction] 06-21-2021 Episodic Chronic obstructive pulmonary disease and bronchiectasis (1 source) Bronchitis, not specified as acute or chronic; Translations: [Bronchitis, not specified as acute or chronic] Episodic Complications of surgical procedures or medical care (3 sources) Prolapse of vaginal vault after hysterectomy; Translations: [Prolapse of vaginal vault after hysterectomy] Onset: 1 Chronic Coronary atherosclerosis and other heart disease (15 sources) Coronary atherosclerosis; Translations: [Atherosclerotic heart disease of resighini coronary artery without angina pectoris] Onset: 4 06-09-2018 Chronic Diabetes mellitus without complication (15 sources) Hyperglycemia; Translations: [Hyperglycemia, unspecified] Onset: 5 05-07-2022 Episodic Diseases of white blood cells (3 sources) Leukocytosis; Translations: [Elevated white blood cell count, unspecified] 01-19-2024 Chronic Disorders of lipid metabolism (20 sources) Hyperlipidemia; Translations: [Hyperlipidemia, unspecified] Onset: 5 Chronic Esophageal disorders (12 sources) Gastroesophageal reflux disease; Translations: [Gastro-esophageal reflux disease without esophagitis] 10-02-2018 Chronic Essential hypertension (20 sources) Hypertensive disorder; Translations: [Essential (primary) hypertension] Onset: 5 Chronic Fever of unknown origin (3 sources) Fever; Translations: [Fever, unspecified] 01-19-2024 Episodic Gastrointestinal hemorrhage (20 sources) Rectal hemorrhage; Translations: [Hemorrhage of anus and rectum] 03-21-2021 Episodic Intestinal infection (6 sources) Clostridium difficile colitis; Translations: [Enterocolitis due to Clostridium difficile, not specified as recurrent] 01-20-2024 Episodic Menopausal disorders (6 sources) Atrophic vaginitis; Translations: [Postmenopausal atrophic vaginitis] Onset: 8 05-11-2008 Chronic Noninfectious gastroenteritis (3 sources) Colitis; Translations: [Noninfective gastroenteritis and colitis, unspecified] 01-19-2024 Episodic Nonspecific chest pain (20 sources) Acute chest pain; Translations: [Chest pain, unspecified] Episodic Nutritional deficiencies (1 source) Vitamin D deficiency, unspecified; Translations: [Vitamin D deficiency, unspecified] Onset: 5 Chronic Open wounds of extremities (7 sources) Laceration of finger without foreign body; Translations: [Laceration without foreign body of unspecified finger with damage to nail, initial encounter] 10-08-2022 Episodic Osteoarthritis (20 sources) Arthritis; Translations: [Unspecified osteoarthritis, unspecified site] Chronic Other and ill-defined heart disease (6 sources) Takotsubo cardiomyopathy; Translations: [Takotsubo syndrome] 04-28-2024 Chronic Other and ill-defined heart disease (2 sources) Takotsubo syndrome; Translations: [Takotsubo syndrome] Onset: Chronic Other bone disease and musculoskeletal deformities (10 sources) Osteopenia; Translations: [Other specified disorders of bone density and structure, unspecified site] 10-02-2018 Episodic Other gastrointestinal disorders (10 sources) Abdominal bloating; Translations: [Abdominal distension (gaseous)] 06-07-2021 Episodic Other inflammatory condition of skin (10 sources) Psoriasis; Translations: [Psoriasis, unspecified] 10-02-2018 Chronic Other lower respiratory disease (1 source) Cough; Translations: [Cough] Episodic Other nervous system disorders (10 sources) Carpal tunnel syndrome; Translations: [Carpal tunnel syndrome, unspecified upper limb] 10-02-2018 Chronic Other nervous system disorders (10 sources) Neuropathy; Translations: [Polyneuropathy, unspecified] 10-02-2018 Chronic Other nervous system disorders (1 source) Carpal tunnel syndrome, unspecified upper limb; Translations: [Carpal tunnel syndrome] Chronic Other nutritional; endocrine; and metabolic disorders (10 sources) Obese class I; Translations: [Obesity, unspecified] 07-24-2017 Chronic Other nutritional; endocrine; and metabolic disorders (6 sources) Obesity, unspecified; Translations: [Obesity, unspecified] Chronic Other nutritional; endocrine; and metabolic disorders (9 sources) Insulin resistance; Translations: [Insulin resistance] 06-13-2023 Chronic Other skin disorders (6 sources) Disorder of skin of lower limb; Translations: [Disorder of the skin and subcutaneous tissue, unspecified] 01-16-2023 Episodic Prolapse of female genital organs (9 sources) Midline cystocele; Translations: [Cystocele, midline] Onset: 8 05-11-2008 Chronic Residual codes; unclassified (10 sources) Insomnia; Translations: [Insomnia, unspecified] 07-11-2021 Episodic Residual codes; unclassified (1 source) Insomnia, unspecified; Translations: [Insomnia, unspecified] Episodic Septicemia (except in labor) (3 sources) Sepsis; Translations: [Sepsis, unspecified organism] 04-26-2024 Episodic Skin and subcutaneous tissue infections (3 sources) Cellulitis of right lower limb; Translations: [Cellulitis of right lower limb] 04-26-2024 Episodic Thyroid disorders (20 sources) Hypothyroidism; Translations: [Hypothyroidism, unspecified] Onset: 5 Chronic Thyroid disorders (11 sources) Disorder of thyroid gland; Translations: [Disorder of thyroid, unspecified] Onset: 5 10-02-2018 Episodic Transient cerebral ischemia (13 sources) Transient cerebral ischemia; Translations: [Transient cerebral ischemic attack, unspecified] 10-02-2018 Chronic Comment on above: 06/23 Unclassified (1 source) Insulin resistance, unspecified; Translations: [Insulin resistance, unspecified] Onset: 5 Past or Other Problems Problem Classification Problem Date Documented Date Episodic/Chronic Immunizations and screening for infectious disease (12 sources) Needs influenza immunization; Translations: [Encounter for immunization] Onset: 07-24-2024 06-06-2021 Episodic Other screening for suspected conditions (not mental disorders or infectious disease) (12 sources) CT of abdomen abnormal; Translations: [Abnormal findings on diagnostic imaging of other abdominal regions, including retroperitoneum] Onset: 06-16-2024 07-11-2021 Episodic Residual codes; unclassified (10 sources) History of colonoscopy; Translations: [Other specified postprocedural states] Onset: 07-02-2017 03-21-2021 Episodic Results Test Name Value Interpretation Reference Range Facility MR/BMS.SHANNANBon 04-15-2025 MR/BMS.IMB [facility] [address] [place] [address] OFFICE VISIT Date of Service: 04/15/25 MR#: [id number] Acct: [id number] Name: ROMERO GRAY Rep #: [id number] : 1950 Provider: Dr. Abran mcclain MD Age/Sex: 74/F Location: [facility] Status: Signed Intake Vital Signs 07/28/24 15:55 03/31/25 14:30 04/15/25 09:58 Height 5 ft 5 in 5 ft 5 in 5 ft 5 in Weight: 205 lb 206 lb 2 oz BMI 34.1 34.2 BP 112/70 117/77 Blood Pressure Location Lt brachial Lt brachial Position Sitting Sitting Respiration 16 16 Pulse 79 66 Pulse Source Monitor Monitor Temp 98.4 F Temp Source Temporal Pulse Oximetry (%) 93 Oxygen Delivery Method room air Intake Visit Reasons: Annual/Physical Chief Complaint: no acute concerns Human Services Professional Required: No Accompanied by: Self Is patient in pain?: No Allergies Sulfa (Sulfonamide Antibiotics) Allergy (Verified 04/15/25 09:54) Rash Medications ???Medication ???Instructions ???Recorded ???Confirmed ???Type aspirin 81 mg chewable tablet 81 mg PO DAILY@0800 ##90 07/26/17 04/15/25 Rx cholecalciferol (vitamin D3) 125 125 mcg PO DAILY 07/04/21 04/15/25 History mcg (5,000 unit) tablet levothyroxine 75 mcg tablet 75 mcg PO DAILY #90 tabs 09/04/24 04/15/25 Rx lisinopril 20 0.5 tab PO QDAY #45 tabs 10/27/24 04/15/25 Rx mg-hydrochlorothiaz hoa 12.5 mg tablet atorvastatin 20 mg tablet 20 mg PO QHS #90 tabs 02/01/25 Rx estradiol 0.01% (0.1 mg/gram) 1 g vaginal .COMPLEX #42.5 grams 0 02/01/25 04/15/25 Rx vaginal cream trazodone 50 mg tablet 50 mg PO QHS PRN insomnia #90 tabs 02/01/25 04/15/25 Rx carvedilol 3.125 mg tablet 3.125 mg PO BID #180 tabs 03/31/25 04/15/25 Rx multivitamin 1 tab PO QDAY 03/31/25 04/15/25 Hi story psyllium husk 0.52 gram capsule 0.52 g PO DAILY PRN bm 03/31/25 History (Daily Fiber) Have you fallen in the past year?: No [facility] Medical History Recurrent Clostridioides difficile diarrhea Hammer toe TIA (transient ischemic attack) Psoriasis Thyroid disease GERD (gastroesophageal reflux disease) Osteopenia Neuropathy Carpal tunnel syndrome Arthritis Atherosclerosis of coronary artery of resighini heart without angina pectoris Non-STEMI (non-ST elevated myocardial infarction) ( 07/2017) Hypertension Hyperlipidemia Surgical History History of left knee replacement History of colonoscopy (07/02/17) History of tubal ligation History of tonsillectomy and adenoidectomy History of hysterectomy History of carpal tunnel surgery of right wrist History of bladder suspension procedure History of foot surgery Family History Brother Alcoholism Myocardial infarction Kidney disease Multiple myeloma Mother Arthritis Blood clot in vein Father Cancer Renal Skin Kidney disease Social History household members: spouse Smoking Status: Never smoker second hand exposure: No alcohol intake: current alcohol intake frequency: a few times a week Alcohol type: wine substance use type: does not use caffeine: Yes frequency: 3-4 times per week HPI HPI Chief Complaint: no acute concerns Details: ROMERO GRAY, is a 74 F who presents to the office today for annual follow-up. 74-year-old female has a history of Takotsubo's cardiomyopathy, following with cardiology. That has been a stable issue at this point. Hypertension, hyperlipidemia, non-STEMI, and most recently, prolonged recurrent episodes of C. difficile. She has been stable however for approximately the last 6 months without recurrence at this point. We were prepared to do fecal transplant after she was referred to [facility] however there were no further recurrences after her last treatment fortunately. She continues to tolerate her current medical regimen including levothyroxine 75 mcg daily, lisinopril???HCTZ, estradiol, vitamin D, carvedilol, atorvastatin and aspirin as well as trazodone as needed for sleep. Review of systems per chart. Currently no chest pain, chest tightness, shortness of breath wheeze cough or congestion. Bowel movements have been regular, daily to every other day, formed bowel movements. No dark black or bloody stools are reported. She is up-to-date on mammogram. Physical exam. Vital signs on chart. Bilateral intraocular lens replacements. PERRLA. Sclera are clear. TMs are unremarkable with normal light reflexes. Canals are unremarkable. Posterior pharynx is unremarkable. Good dentition. No cervical or supraclavicular lymph nodes enlarged or tender. No clear thyromegaly. No thyroid nodules readily p (more content not included)... Normal [facility] Cardiology Visit Reporton Cardiology Visit Report [facility] [address] [place] [address] OFFICE VISIT Date of Service: 03/31/25 MR#: [id number] Acct: [id number] Name: ROMERO GRAY Rep #: [id number] : 1950 Provider: MER Engle Age/Sex: 74/F [place] [facility] Status: Signed HPI HPI History of Present Illness Details: ROMERO GRAY, is a 74 F who presents to the office today for a cardiovascular follow-up. As she remember she had a non-ST elevation myocardial infarction in July 2017 and more recently she presented in April of 2024 with chest discomfort she had a non-ST elevation myocardial infarction estimated ejection fraction was 35% heart cath with no obstructive coronary disease though there was slow flow noted. She was placed on medication she has done markedly well her ejection fraction improved in June to approximately 50% with no obvious segmental wall motion abnormalities . A few weeks ago she was lifting weights, then she had discomfort with swallowing. She does have pain in her shoulder and has not talked to anyone about this. Intake Vital Signs 07/28/24 15:55 03/31/25 14:30 Height 5 ft 5 in 5 ft 5 in Weight: 206 lb 205 lb BMI 34.2 34.1 BP 94/54 L 112/70 Blood Pressure Location Lt radial Lt brachial Position Sitting Sitting Respiration 16 16 Pulse 91 79 Pulse Source Monitor Monitor Intake Visit Reasons: 8 M FU Human Services Professional Required: No Accompanied by: Self Is patient in pain?: No Allergies Sulfa (Sulfonamide Antibiotics) Allergy (Verified 03/31/25 14:31) Rash Medications ???Medication ???Instructions ???Recorded ???Confirmed ???Type aspirin 81 mg chewable tablet 81 mg PO DAILY@0800 ##90 07/26/17 03/31/25 Rx cholecalciferol (vitamin D3) 125 125 mcg PO DAILY 07/04/21 03/31/25 History mcg (5,000 unit) tablet levothyroxine 75 mcg tablet 75 mcg PO DAILY #90 tabs 09/04/24 03/31/25 Rx lisinopril 20 0.5 tab PO QDAY #45 tabs 10/27/24 03/31/25 Rx mg-hydrochlorothiaz hoa 12.5 mg tablet atorvastatin 20 mg tablet 20 mg PO QHS #90 tabs 02/01/25 Rx estradiol 0.01% (0.1 mg/gram) 1 g vaginal .COMPLEX #42.5 grams 0 02/01/25 03/31/25 Rx vaginal cream trazodone 50 mg tablet 50 mg PO QHS PRN insomnia #90 tabs 02/01/25 03/31/25 Rx carvedilol 3.125 mg tablet 3.125 mg PO BID #180 tabs 03/31/25 03/31/25 Rx multivitamin 1 tab PO QDAY 03/31/25 03/31/25 Hi story psyllium husk 0.52 gram capsule 0.52 g PO DAILY PRN bm 03/31/25 History (Daily Fiber) Ejection fraction %: 50 Have you fallen in the past year?: No PFSH Medical History Recurrent Clostridioides difficile diarrhea Hammer toe TIA (transient ischemic attack) Psoriasis Thyroid disease GERD (gastroesophageal reflux disease) Osteopenia Neuropathy Carpal tunnel syndrome Arthritis Atherosclerosis of coronary artery of resighini heart without angina pectoris Non-STEMI (non-ST elevated myocardial infarction) ( 07/2017) Hypertension Hyperlipidemia Surgical History History of left knee replacement History of colonoscopy (07/02/17) History of tubal ligation History of tonsillectomy and adenoidectomy History of hysterectomy History of carpal tunnel surgery of right wrist History of bladder suspension procedure History of foot surgery Family History Brother Alcoholism Myocardial infarction Kidney disease Multiple myeloma Mother Arthritis Blood clot in vein Father Cancer Renal Skin Kidney disease Social History household members: spouse Smoking Status: Never smoker second hand exposure: No alcohol intake: current alcohol intake frequency: a few times a week Alcohol type: wine substance use type: does not use caffeine: Yes frequency: 3-4 times per week ROS Const Const: Negative for fatigue or weakness Eyes Eyes: Negative for change in vision ENT ENT: Negative for dizziness or balance problems Cardio Chest Pain: No Palpitations: No Edema: Bilateral (states normal) Resp Respiratory: Negative for SOB with activity, SOB at rest or SOB orthopnea SOB lying down GI GI: Negative nausea or heartburn Musc Musc: Negative for balance problems Neuro Neuro: Negative for dizziness, lightheadedness, near syncope, syncope or weakness Endo Endo: Negative for fatigue Cardiology Exam Const Appearance: cooperative, healthy appearing, comfortable, no acute distress and well developed Nutritional Appearance: average body habitus and obese Orientation: alert and oriented x3 Head Head: normal to inspection Ears: he (more content not included)... Normal [facility] Breast imaging reportOrdered By: Rogerio Kirby on 10-12-2024 Study report [facility] Imaging Services [address] [place], [place] [id number] SCRN MAMM (CAD)W/MARS BILAT MR#: [id number] Acct: [id number] Name: ROMERO GRAY Rep #: [id number] : 1950 F 74 From: Jose E Kirby MD PCP: Dr. Abran Yanes MD Status: REG CLI Study:SCRN MAMM (CAD)W/MARS BILAT Date of Exa m: 10/12/24 Exam# [id number] Ordering Dr: Abran Yanes MD PROCEDURE: SCRN MAMM (CAD)W/MARS BILAT REASON FOR EXAM: F, Age 74 y/o, no family history. Routine annual follow-up examination. TECHNIQUE: Bilateral screening digital breast tomosynthesis with 2D and 3D images. Computeraided detection. COMPARISON: Prior exam(s) dating back to September 26, 2023.. FINDINGS: The breasts are almost entirely fatty. Stable examination. No suspicious masses, areas of developing architectural distortion, or suspicious calcifications. BI/SCRN MAMM (CAD)W/MARS BILAT IMPRESSION: BI-RADS 1: NEGATIVE. RECOMMEND ANNUAL MAMMOGRAPHIC SCREENING. Follow-up code: Routine Follow-up The patient will be notified of the results by letter. Reading Location: [id number] CC: Dr. Abran Yanes MD ~ Bottom Finisher: Signed [facility] SCRN MAMM (CAD)W/MARS BILATo n 10-12-2024 SCRN MAMM (CAD)W/MARS BILAT [facility] Imaging Services [address] [place] [id number] SCRN MAMM (CAD)W/MARS BILAT MR#: [id number] Acct: [id number] Name: ROMERO GRAY Rep #: [id number] : 1950 F 74 From: Rogerio mcmanus MD PCP: Dr. Abran Yanes MD Status: [facility] Study: SCRN MAMM (CAD)W/MARS BILAT Date of Exam: 09/20 12/11 Exam# [id number] Ordering Dr: Abarn Yanes MD PROCEDURE: SCRN MAMM (CAD)W/MARS BILAT REASON FOR EXAM: F, Age 74 y/o, no family history. Routine annual follow-up examination. TECHNIQUE: Bilateral screening digital breast tomosynthesis with 2D and 3D images. Computer aided detection. COMPARISON: Prior exam(s) dating back to September 26, 2023.. FINDINGS: The breasts are almost entirely fatty. Stable examination. No suspicious masses, areas of developing architectural distortion, or suspicious calcifications. BI/SCRN MAMM (CAD)W/MARS BILAT IMPRESSION: BI-RADS 1: NEGATIVE. RECOMMEND ANNUAL MAMMOGRAPHIC SCREENING. Follow-up code: Routine Follow-up The patient will be notified of the results by letter. Reading Location: NAZ CC: Dr. Abran Yanes MD Bottom Finisher: Signed Normal [facility] Cardiology Visit Reporton Cardiology Visit Report [facility] [address] [place], [place] [address] OFFICE VISIT Date of Service: 07/28/24 MR#: [id number] Acct: [id number] Name: ROMERO GRAY Rep #: [id number] : 1950 Provider: Dr. Dash Prabhakar MD Age/Sex: 74/F Location[place] [facility] Status: Signed HPI HPI History of Present Illness Details: ROMERO GRAY, is a 74 F who presents to the office today for a cardiovascular follow-up. As she remember she had a non-ST elevation myocardial infarction in July 2017 and more recently she presented in April with chest discomfort she had a non-ST elevation myocardial infarction estimated ejection fraction was 35% heart cath with no obstructive coronary disease though there was slow flow noted. She was placed on medication she has done markedly well her ejection fraction improved in June to approximately 50% with no obvious segmental wall motion abnormalities she has been in cardiac rehabilitation and wants to start exercise on her own. She denies any chest pain or shortness with or paroxysmal nocturnal dyspnea pedal edema no neck arm or jaw discomfort suggest angina. Intake Vital Signs 07/03/24 14:37 07/28/24 15:55 Height 5 ft 5 in 5 ft 5 in Weight: 206 lb BMI 34.2 BP 94/54 L Blood Pressure Location Lt radial Position Sitting Respiration 16 Pulse 91 Pulse Source Monitor Intake Visit Reasons: 3 mo f/u after Takotsubo Human Services Professional Required: No Accompanied by: Self Is patient in pain?: No Allergies Sulfa (Sulfonamide Antibiotics) Allergy (Verified 07/28/24 15:58) Rash Medications ???Medication ???Instructions ???Recorded ???Confirmed ???Type aspirin 81 mg chewable tablet 81 mg PO DAILY@0800 ##90 07/26/17 07/28/24 Rx cholecalciferol (vitamin D3) 125 125 mcg PO DAILY 07/04/21 07/28/24 History mcg (5,000 unit) tablet atorvastatin 20 mg tablet 20 mg PO QHS #90 tabs 05/13/23 07/28/24 Rx levothyroxine 75 mcg tablet 75 mcg PO DAILY #90 tabs 09/11/23 07/28/24 Rx trazodone 50 mg tablet 50 mg PO QHS PRN insomnia 01/07/24 07/28/24 History estradiol 0.01% (0.1 mg/gram) 1 g vaginal .COMPLEX 01/12/24 07/28/24 History vaginal cream psyllium husk 0.52 gram capsule 0.52 g PO DAILY bm 01/12/24 07/28/24 History (Daily Fiber) vitamin B complex (Complex B-100 1 tab PO DAILY 01/12/24 07/28/24 History tablet,extended release) spironolactone 25 mg tablet 12.5 mg (1/2 x 25 mg) PO QDAY #90 05/11/24 07/28/24 Rx tabs lisinopril 20 mg tablet 10 mg (1/2 x 20 mg) PO QDAY #30 05/13/24 07/28/24 Rx tabs carvedilol 3.125 mg tablet 3.125 mg PO BID #180 tabs 05/25/24 07/28/24 Rx fidaxomicin 200 mg tablet (Dificid) 200 mg PO Q12H Recurrent C diff 07/23/24 07/28/24 Rx infection 10 days #20 tabs vancomycin 125 mg capsule 125 mg PO Q6 07/28/24 07/28/24 History Have you fallen in the past year?: No PFSH Medical History Recurrent Clostridioides difficile diarrhea Hammer toe TIA (transient ischemic attack) Psoriasis Thyroid disease GERD (gastroesophageal reflux disease) Osteopenia Neuropathy Carpal tunnel syndrome Arthritis Atherosclerosis of coronary artery of resighini heart without angina pectoris Non-STEMI (non-ST elevated myocardial infarction) ( 07/2017) Hypertension Hyperlipidemia Surgical History History of left knee replacement History of colonoscopy (07/02/17) History of tubal ligation History of tonsillectomy and adenoidectomy History of hysterectomy History of carpal tunnel surgery of right wrist History of bladder suspension procedure History of foot surgery Family History Brother Alcoholism Myocardial infarction Kidney disease Multiple myeloma Mother Arthritis Blood clot in vein Father Cancer Renal Skin Kidney disease Social History household members: spouse Smoking Status: Never smoker second hand exposure: No alcohol intake: current alcohol intake frequency: a few times a week Alcohol type: wine substance use type: does not use caffeine: Yes frequency: 3-4 times per week ROS Const Const: Negative for fatigue, weakness, headache(s), daytime sleepiness or difficulty sleeping ENT ENT: Negative for headache(s), dizziness or Nosebleed/epistaxis Cardio Chest Pain: No Palpitations: No Edema: None Resp Respiratory: Negative for SOB with activity, SOB at rest, SOB orthopnea SOB lying down or Cough GI GI: Positive for heartburn (occas.); Negative nausea or vomiting Neuro Neuro: Negative for dizziness, lightheadedness, near syncope, headache(s) or weakness Endo Endo: Negative for fatigue Card (more content not included)... Normal [facility] 07-22-2024 [facility] Telephone ([facility]) ---- ROMERO GRAY ([id number]) 1950 F Date Time Provider Department 07/22/24 CANDICE CARTER GSTNOR During your visit today, we recorded [...] - Hives Date Reviewed: 07/20/2024 Reviewed by: Carter, Candice, PA-C - Fully Assessed Reason for Visit: [...] vault after hysterectomy [N*11/08/2010 Encounter Status:Closed by HERBER CHAN on 07/22/24 [facility] Dang 07-20-2024 CNOV Office Visit (GSTNOR) ---- ROMERO GRAY ([id number]) 1950 F Date Time Provider Department 07/20/24 11:20 AM CANDICE CARTER During your visit today, we recorded the following information about you: Pulse Blood pressure Weight Height 60/minute 134/78 92.5 kg 1.664 m Candice Carter PA-C 07/20/2024 11:48 AM Signed CHIEF COMPLAINT: Patient presents with: Recurrent C Diff : 3 times since January This consult was requested by Abran Yanes MD for an opinion regarding recurrent C diff. My final recommendations will be communicated to the requesting health care provider by way of the shared medical record for internal providers or letter via the [employer] for external providers. HPI: Romero Gray is a 74 year old female [...] SURGICAL HISTORY Procedure Laterality Date COLONOSCOPY 03/2021 [facility] COLONOSCOPY FLX DX W/COLLJ SPEC WHEN PFRMD 08/06/2007 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 Musculoskeletal: General: Normal range of (more content not included)... Normal [facility] Echo Limited w/Contraston Echo Limited w/Contrast [facility] [address] [place] [address] Echo Limited w/Contrast 07/03/24 0959 MR#: [id number] Acct: [id number] Name: ROMERO GRAY Rep #: [id number] : 1950 74 From: Dash Prabhakar MD Attending Dr: Bela Roberson COOLER OPERATOR-C Status: [facility] Ordering Dr: Bela Roberson COOLER OPERATOR COOLER OPERATOR-C Date: 07/03/24 Location: [facility] Sex: F C Admitted: Reason For Study: Takotsubo Syndrome Procedure This was a limited 2D transthoracic echocardiogram. Myocardial strain analysis was performed in this exam to aid in the assessment of cardiac function. Exam performed in department. Left Ventricle Normal LV size. The left ventricular ejection fraction is 50 %. Mild apical hypokinesis. Right Ventricle Normal RV size. Normal systolic function. Atria Normal left atrium. Normal right atrium. Mitral Valve Mild focal mitral valve calcification of the anterior leaflet. Tricuspid Valve Normal tricuspid valve. Aortic Valve Trisinus/trileaflet aortic valve. Pulmonic Valve Normal pulmonic valve. Great Vessels Normal aortic root. The pulmonary artery is normal size. Inferior vena cava collapse with respiration. Pericardium/Pleural No pericardial effusion. MMode/2D Measurements Calculations LVIDd: 3.6 cm IVSd: 0.92 cm LVAd ap4: 31.3 cm2 LVIDs: 2.5 cm LVPWd: 0.91 cm LVLd ap4: 7.7 cm FS: 31.4 % EDV(MOD-sp4): 103.0 ml EDV(sp4-el): 108.3 ml LVAs ap4: 19.7 cm2 LVLs ap4: 6.5 cm ESV(MOD-sp4): 49.6 ml ESV(sp4-el): 50.2 ml EF(MOD-sp4): 51.9 % EF(sp4-el): 53.6 % LVAd ap2: 29.6 cm2 SV(MOD-sp4): 53.4 ml SV(MOD-sp2): 60.0 ml LVLd ap2: 7.6 cm SI(MOD-sp4): 27.0 ml/m2 SI(MOD-sp2): 30.3 ml/m2 EDV(MOD-sp2): 96.7 ml EDV(sp2-el): 97.6 ml LVAs ap2: 17.1 cm2 LVLs ap2: 6.7 cm ESV(MOD-sp2): 36.7 ml ESV(sp2-el): 37.1 ml EF(MOD-sp2): 62.0 % SV(sp4-el): 58.1 ml Doppler Measurements Calculations TR max jorge: 237.0 cm/sec TR max P.5 mmHg ECHO/Echo Limited w/Contrast Interpretation Summary The left ventricular ejection fraction is 50 %. Normal LV size. The global longitudinal strain is normal. The global longitudinal strain = -17.8 % (normal). Structurally normal valves. Contrast injection was performed. __ Ordering Physician: Bela Roberson Referring Physician: Abran Yanes Performed By: Arlene Alicea, RDCS, RVT 07/03/24 1255 Date Dash Prabhakar MD CC: COOLER OPERATOR-C Bela Roberson; Dr. Abran Yanes MD Date Dictated: 07/03/2459 Date Transcribed: 07/03/24 1255 Bottom Finisher: Signed [facility] Office Visit Reporton 2023 Office Visit Report [facility] [address] [place] [address] OFFICE VISIT Date of Service: 06/29/24 MR#: [id number] Acct: [id number] Patient: ROMERO GRAY Rep #: [id number] : 1950 Provider: IMB NURSE Age/Sex: 74/F Location: [facility] Status: Signed Intake Vital Signs 06/04/24 07:48 Height 5 ft 5 in Intake Visit Reasons: Flu Shot Chief Complaint: 2 week f/u Allergies Sulfa (Sulfonamide Antibiotics) Allergy (Verified 06/03/24 11:09) Rash Have you fallen in the past year?: No Immunizations Fluad Triv (65y up)(PF) 45 mcg (15 mcg x 3)/0.5 mL IM syringe Performing Provider: Abran Yanes MD Performing Location: [facility] Administered by: Gia Felipe RN on 06/29/24 14:23 Dose Route Admin Location Dispensed Lot Number Expiration Date NDC Man ufacturer 45 mcg IM Right Deltoid 0.5 mL [id number] 12/18/24 01725-246-65 [employer] VIS Given Date VIS Provided VIS Publication Date 06/29/24 Single Vaccine 24 Eligibility Eligibility Date Funding Source Not Applicable Assessment and Plan Assessment and Plan (1) Flu vaccine need: Status: Acute Orders: Orders Influenza Immunization Today Z23 - Encounter for immunization Clinical Quality Measures Falls Risk Screening/Assistive Devices Have you fallen in the past year?: No 06/29/24 1623 Date Abran Salcedo Signature: Date (if applicable) CC: Normal [facility] Cardiology Visit Reporton Cardiology Visit Report [facility] [address] [place] [address] OFFICE VISIT Date of Service: 06/03/24 MR#: [id number] Acct: [id number] Name: ROMERO GRAY Rep #: [id number] : 1950 Provider: EFREN barr Age/Sex: 74/F Location: [facility] Status: Signed HPI HPI History of Present Illness Details: ROMERO GRAY, is a 74 F who presents to the office today for a cardiovascular follow-up. Patient was recently discharged from [facility] where she was admitted April 26 through April 28. During this admission she presented with what appeared to be a non-STEMI but it catheterization was shown to be Takotsubo's. Her ejection fraction was estimated at 35% at cath and echocardiogram was performed which showed an EF of 45%. The patient had not experienced any type of emotional or physical stressors. Her coronary artery showed minimal disease there was some slow flow documented in the circumflex. She had a non-ST myocardial infarction in July 2017. Cath did not reveal any definitive etiology of her non-STEMI. The function was normal with an EF of 60% but with some anterior hypokinesis. The left anterior descending had mild luminal irregularities that were less than 30% in the circumflex and right coronary were angiographically normal. Retrospect the patient at that time was undergoing significant family issues and personal health issues with recurrent problems with her failed surgery on her right foot and her father . Possible this was complicit in her presentation with a non-STEMI. From a cardiac standpoint, the patient is doing well. She denies any palpitations, chest pain, pressure or heaviness. She denies SOB, Orthopnea, and PND. She does not have bleeding issues; no blood in urine, stool or nosebleeds. She denies any decrease in energy level, myalgias, or claudication. She does not have edema, or sudden weight gain. She denies dizziness, lightheadedness, syncopal or near syncopal episodes, and headaches. Intake Vital Signs 04/30/24 08:30 05/05/24 10:18 06/03/24 10:57 Height 5 ft 5 in 5 ft 5 in 5 ft 5 in Weight: 198 lb BMI 32.9 BP 102/61 Blood Pressure Location Lt brachial Position Sitting Respiration 18 Pulse 83 Pulse Source Monitor Pulse Oximetry (%) 93 Intake Visit Reasons: 1 M FU Human Services Professional Required: No Is patient in pain?: No Allergies Sulfa (Sulfonamide Antibiotics) Allergy (Verified 06/03/24 11:09) Rash Medications ???Medication ???Instructions ???Recorded ???Confirmed ???Type aspirin 81 mg chewable tablet 81 mg PO DAILY@0800 ##90 07/26/17 06/03/24 Rx cholecalciferol (vitamin D3) 125 125 mcg PO DAILY 07/04/21 06/03/24 History mcg (5,000 unit) tablet atorvastatin 20 mg tablet 20 mg PO QHS #90 tabs 05/13/23 06/03/24 Rx levothyroxine 75 mcg tablet 75 mcg PO DAILY #90 tabs 09/11/23 06/03/24 Rx trazodone 50 mg tablet 50 mg PO QHS PRN insomnia 01/07/24 06/03/24 History estradiol 0.01% (0.1 mg/gram) 1 g vaginal .COMPLEX 01/12/24 06/03/24 History vaginal cream psyllium husk 0.52 gram capsule 0.52 g PO DAILY bm 01/12/24 06/03/24 History (Daily Fiber) vitamin B complex (Complex B-100 1 tab PO DAILY 01/12/24 06/03/24 History tablet,extended release) spironolactone 25 mg tablet 12.5 mg (1/2 x 25 mg) PO QDAY #90 05/11/24 06/03/24 Rx tabs lisinopril 20 mg tablet 10 mg (1/2 x 20 mg) PO QDAY #30 05/13/24 06/03/24 Rx tabs vancomycin 125 mg capsule 125 mg PO Q6H 28 days #112 caps 05/21/24 06/03/24 Rx carvedilol 3.125 mg tablet 3.125 mg PO BID #180 tabs 05/25/24 06/03/24 Rx Have you fallen in the past year?: No PFSH Medical History Recurrent Clostridioides difficile diarrhea Hammer toe TIA (transient ischemic attack) Psoriasis Thyroid disease GERD (gastroesophageal reflux disease) Osteopenia Neuropathy Carpal tunnel syndrome Arthritis Atherosclerosis of coronary artery of resighini heart without angina pectoris Non-STEMI (non-ST elevated myocardial infarction) ( 07/2017) Hypertension Hyperlipidemia Surgical History History of left knee replacement History of colonoscopy (07/02/17) History of tubal ligation History of tonsillectomy and adenoidectomy History of hysterectomy History of carpal tunnel surgery of right wrist History of bladder suspension procedure History of foot surgery Family History Brother Alcoholism Myocardial infarction Kidney disease Multiple myeloma Mother Arthritis Blood clot in vein Father Cancer Renal Skin Kidney disease Social History household (more content not included)... Normal [facility] Basic Metabolic Profile (BMP )on 05-27-2024 BUN/CRE 16.4 RATIO Normal 06-07 [facility] Comment on above: Performed By: #### L 500.2500 #### [facility] Laboratory [address] [place], [place], [id number] CA,Total 9.9 mg/dL Normal 8.5-10.1 [facility] Comment on above: Performed By: #### L 500.2500 #### [facility] [address] [place], [address] Chloride [Moles/Vol] 106 mmol/L Normal 98-107 [facility] Comment on above: Performed By: #### L 500.2500 #### [facility] [address] [place], [address] CO2 [Moles/Vol] 27.0 mmol/L Normal 21.0-32.0 [facility] Comment on above: Performed By: #### L 500.2500 #### [facility] [address] [place], [address] Creatinine [Mass/Vol] 0.92 mg/dL Normal 0.55-1.02 [facility] Comment on above: Result Comment: The validity of the calculated GFR GFRAA in patients over 70 years has not been determined. Clinical correlation is essential. Performed By: #### L 500.2500 #### [facility] [address] [place], [address] EST GFR - AA 77 mL/min Normal >60 [facility] Comment on above: Result Comment: Afri can Turkmen GFR Calc Performed By: #### L 500.2500 #### [facility] [address] [place], [address] GAP 6 Normal 5-15 [facility] Comment on above: Performed By: #### L 500.2500 #### [facility] [address] [place], [address] GFR/1.73 sq M.predicted among non-blacks MDRD (S/P/Bld) [Vol rate/Area] 64 mL/min/{1.73_m2} Normal >60 [facility] Comment on above: Result Comment: Non- GFR Calc Performed By: #### L 500.2500 #### [facility] [address] [place], [address] Glucose [Mass/Vol] 100 mg/dL Normal 74-106 [facility] Comment on above: Result Comment: Fast ing Glucose result from 100 to 125 mg/dL suggests IMPAIRED HOMEOSTASIS per A.D.A. criteria. Performed By: #### L 500.2500 #### [facility] [address] [place], [address] Potassium [Moles/Vol] 4.4 mmol/L Normal 3.5-5.1 [facility] Comment on above: Performed By: #### L 500.2500 #### [facility] [address] [place], [address] Sodium [Moles/Vol] 139 mmol/L Normal 136-145 [facility] Comment on above: Performed By: #### L 500.2500 #### [facility] [address] [place], [address] Urea nitrogen [Mass/Vol] 15 mg/dL Normal 7-18 [facility] Comment on above: Performed By: #### L 500.2500 #### [facility] [address] [place], [address] CDIFF (PCR)on 05-20-2024 CDIFF A positive C. difficile molecular test does not differentiate between an active C. difficile infection and C. difficile colonization. Use clinical judgement and paired toxin/antigen testing to identify true infection and need for treatment. C diff DNA Spec Ql BRETT+probe Reference Range: Negative [employer] GeneXpert: polymerase chain reaction (PCR) 027 027 NAP1-B1 Presumptive Negative *for epidemiolologic???u se C. Diff PCR A Positive-Toxigenic C. Difficile Detected A Normal [facility] Comment on above: Performed By: #### M 100.6796, M100.6795 ####[facility] [address] [place], [address] Clostridium Diff Toxin/Agon 05-20-2024 CDIFF (EIA) RESULTS CALLED TO Amada RIOS 05/21/24 Cristóbal Guevara. REPORT READ BACK BY . Interpretation of C. diff by EIA Method POS Antigen and POS Toxin = Positive for Toxigenic C. difficile gene and active toxin production IS detected. Consistent with true infection. C diff Stl Ql Copy of report sent to Infection Control Printer [id number] 05/20/24 1831 HE. C diff Stl Ql RESULTS CALLED TO JOSE RIOS 05/20/24 1832 Kristin Bedolla. REPORT READ BACK BY SAME. C. difficile Antigen A Positive C. diff A/B Antigen A C. difficile Toxin A Positive-Toxigenic C. Difficile (EIA) A Toxigenic C. difficile Normal [facility] Comment on above: Performed By: #### L 500.2500 #### [facility] [address] [place], [address] Basic Metabolic Profile (BMP )on 05-13-2024 BUN/CRE 16.7 RATIO Normal 10- [facility] Comment on above: Performed By: #### L 500.2500 #### [facility] [address] [place], [address] CA,Total 9.5 mg/dL Normal 8.5-10.1 [facility] Comment on above: Performed By: #### L 500.2500 #### [facility] [address] [place], [address] Chloride [Moles/Vol] 98 mmol/L Normal 98-107 [facility] Comment on above: Performed By: #### L 500.2500 #### [facility] [address] [place], [address] CO2 [Moles/Vol] 26.0 mmol/L Normal 21.0-32.0 [facility] Comment on above: Performed By: #### L 500.2500 #### [facility] [address] [place], [address] Creatinine [Mass/Vol] 1.08 mg/dL High 0.55-1.02 [facility] Comment on above: Result Comment: The validity of the calculated GFR GFRAA in patients over 70 years has not been determined. Clinical correlation is essential. Performed By: #### L 500.2500 #### [facility] [address] [place], [address] EST GFR - AA 64 mL/min Normal >60 [facility] Comment on above: Result Comment: Afri can Turkmen GFR Calc Performed By: #### L 500.2500 #### [facility] [address] [place], [address] GAP 6 Normal 5-15 [facility] Comment on above: Performed By: #### L 500.2500 #### [facility] [address] [place], [address] GFR/1.73 sq M.predicted among non-blacks MDRD (S/P/Bld) [Vol rate/Area] 53 mL/min/{1.73_m2} Low >60 [facility] Comment on above: Result Comment: Non- GFR Calc Performed By: #### L 500.2500 #### [facility] [address] [place], [address] Glucose [Mass/Vol] 125 mg/dL High 74-106 [facility] Comment on above: Result Comment: Fast ing Glucose result from 100 to 125 mg/dL suggests IMPAIRED HOMEOSTASIS per A.D.A. criteria. Performed By: #### L 500.2500 #### [facility] [address] [place], [address] Potassium [Moles/Vol] 4.2 mmol/L Normal 3.5-5.1 [facility] Comment on above: Performed By: #### L 500.2500 #### [facility] [address] [place], [address] Sodium [Moles/Vol] 130 mmol/L Low 136-145 [facility] Comment on above: Performed By: #### L 500.2500 #### [facility] [address] [place], [address] Urea nitrogen [Mass/Vol] 18 mg/dL Normal 7-18 [facility] Comment on above: Performed By: #### L 500.2500 #### [facility] [address] [place], [address] CR - History AND Physicalon 05-05-2024 CR - History & Physical [facility] Cardiac Rehab [address] [address] CR - History Physical MR#: [id number] Acct: [id number] Name: ROMERO GRAY Rep #: [id number] : 1950 74 From: Fadi Webster BS, RVT PCP: Dr. Abran Yanes MD DOS: 05/05/24 CR - History Physical General Arrival date:: 05/05/24 Arrival time:: 10:05 Date of Referral:: 04/28/24 Date of CR Evaluation:: 05/05/24 Referring Physician: Dr. Prabhakar Primary Diagnosis: SC- NonSTEMI<12months History of Present Cardiac Event Onset Date Acute Myocardial Infarction within 12 months:: Yes (04/26/2024 onset) Medications Ambulatory Orders ???Medication ???Instructions ???Recorded aspirin 81 mg chewable tablet 81 mg PO DAILY@0800 ##90 07/26/17 cholecalciferol (vitamin D3) 125 125 mcg PO DAILY 07/04/21 mcg (5,000 unit) tablet atorvastatin 20 mg tablet 20 mg PO QHS #90 tabs 05/13/23 levothyroxine 75 mcg tablet 75 mcg PO DAILY #90 tabs 09/11/23 lisinopril 20 0.5 tab PO DAILY #90 tabs 11/28/23 mg-hydrochlorothiaz hoa 12.5 mg tablet trazodone 50 mg tablet 50 mg PO QHS PRN insomnia 01/07/24 estradiol 0.01% (0.1 mg/gram) 1 g vaginal .COMPLEX 01/12/24 vaginal cream psyllium husk 0.52 gram capsule 0.52 g PO DAILY bm 01/12/24 (Daily Fiber) vitamin B complex (Complex B-100 1 tab PO DAILY 01/12/24 tablet,extended release) carvedilol 3.125 mg tablet 3.125 mg PO BIDCM 30 days #60 tabs 04/28/24 spironolactone 25 mg tablet 25 mg PO QDAY #90 tabs 04/30/24 Allergies Allergies Sulfa (Sulfonamide Antibiotics) Allergy (Verified 05/04/24 11:24) Rash Sleep Disorder Evaluation Hx of Sleep Apnea: No Do you snore loudly (louder than talking or can be heard through closed doors)?: No Do you often feel tired/ fatigued/ sleepy during daytime?: No Has anyone observed you stop breathing during sleep?: No History of Hypertension (for STOP score): Yes STOP Results: Negative Advanced Directives Advanced Directives Power of Electrical Technician: Yes Living Will: Yes Advance Directives Information Provided: Yes Advance Directives on File: Yes DNR Order?:: No Past Medical History Covid-19 Screening Physicial Symptoms Other Clinical Concerns Exposure Risk Pertinent Comorbidities 65 years or older:: Yes Has a serious heart condition:: Yes Past Medical Illness Medical History Recurrent Clostridioides difficile diarrhea Hammer toe TIA (transient ischemic attack) Psoriasis Thyroid disease GERD (gastroesophageal reflux disease) Osteopenia Neuropathy Carpal tunnel syndrome Arthritis Atherosclerosis of coronary artery of resighini heart without angina pectoris Non-STEMI (non-ST elevated myocardial infarction) ( 07/2017) Hypertension Hyperlipidemia Past Surgical History Surgical History History of left knee replacement History of colonoscopy (07/02/17) History of tubal ligation History of tonsillectomy and adenoidectomy History of hysterectomy History of carpal tunnel surgery of right wrist History of bladder suspension procedure History of foot surgery Surgical History: - Family History Summary Family History Brother Alcoholism Myocardial infarction Kidney disease Multiple myeloma Mother Arthritis Blood clot in vein Father Cancer Renal Skin Kidney disease Social History Smoking History Smoking Status: Never smoker Alcohol Use Alcohol Usage: Yes (wine occas) Substance Abuse Hx Substance Use: No Occupation Occupation (List type of work in comments):: Retired Hobbies, Recreation, Social Activities Hobbies: Sewing and Reading Recreational Activities: I am able to engage in all my recreational activities Social Environment Status Marital Status: Current Living Arrangements Living Environment:: Spouse Children How many children do you have?: 2 Do any of your children live nearby?: No Safety Do you feel safe in your surroundings?: Yes Assistance Do you need any assistance at home?: no Review of Systems Review of Systems Hints Review of Present Symptoms: Reports Angina, Fatigue, Appetite - Normal, Appetite - Special Diet and Sleep - Normal; Denies Shortness of Breath at Rest, Shortness of Breath with Exertion, PVD, Operative Discomfort, Wound Healing, Dizziness/Lighthead edness, Heart Arrhythmia/Irregula rities or Sexual Changes Pain Is Patient Pain Free?: Yes Risk Factor Assessment Chief Complaint Chief Complaint: SC-NonSTEMI<12month s Vital Signs Pulse Ox: 93 Blood Pressure: 102/66 Pulse Pulse Rate: 65 Pulse Rhythm: Regular Hypertension How long have you been treated?: 30 yr Blood Pressure Sitting - Right Arm: 102/66 Diabetes Nutrition Referral for Diabetes: No Obesity H (more content not included)... Normal [facility] MR/BMS.[facility] 05-04-2024 MR/BMS.[facility] [address] [place] [address] OFFICE VISIT Date of Service: 05/04/24 MR#: [id number] Acct: [id number] Name: ROMERO GRAY Rep #: [id number] : 1950 Provider: Dr. Abran mcclain MD Age/Sex: 74/F Location: [facility] Status: Signed Intake Vital Signs 04/26/24 22:53 04/30/24 08:30 05/04/24 11:28 Height 5 ft 5 in 5 ft 5 in 5 ft 5 in Weight: 199 lb 199 lb 2 oz BMI 33.1 33.1 BP 123/80 H 120/76 Blood Pressure Location Rt brachial Lt brachial Position Sitting Sitting Respiration 18 16 Pulse 69 60 Pulse Source Monitor Monitor Temp 98.0 F Temp Source Temporal Pulse Oximetry (%) 95 94 Oxygen Delivery Method room air room air Intake Visit Reasons: [facility] Discharge FU Chief Complaint: 2 week f/u Human Services Professional Required: No Accompanied by: Self Is patient in pain?: No Allergies Sulfa (Sulfonamide Antibiotics) Allergy (Verified 05/04/24 11:24) Rash Medications ???Medication ???Instructions ???Recorded ???Confirmed ???Type aspirin 81 mg chewable tablet 81 mg PO DAILY@0800 ##90 12/08/17 09/16/24 Rx cholecalciferol (vitamin D3) 125 125 mcg PO DAILY 07/04/21 05/04/24 History mcg (5,000 unit) tablet atorvastatin 20 mg tablet 20 mg PO QHS #90 tabs 05/13/23 05/04/24 Rx levothyroxine 75 mcg tablet 75 mcg PO DAILY #90 tabs 09/11/23 05/04/24 Rx lisinopril 20 0.5 tab PO DAILY #90 tabs 11/28/23 05/04/24 Rx mg-hydrochlorothiaz hoa 12.5 mg tablet trazodone 50 mg tablet 50 mg PO QHS PRN insomnia 01/07/24 05/04/24 History estradiol 0.01% (0.1 mg/gram) 1 g vaginal .COMPLEX 01/12/24 05/04/24 History vaginal cream psyllium husk 0.52 gram capsule 0.52 g PO DAILY bm 01/12/24 05/04/24 History (Daily Fiber) vitamin B complex (Complex B-100 1 tab PO DAILY 01/12/24 05/04/24 History tablet,extended release) carvedilol 3.125 mg tablet 3.125 mg PO BIDCM 30 days #60 tabs 04/28/24 05/04/24 Rx spironolactone 25 mg tablet 25 mg PO QDAY #90 tabs 04/30/24 05/04/24 Rx Have you fallen in the past year?: No PFSH Medical History Recurrent Clostridioides difficile diarrhea Hammer toe TIA (transient ischemic attack) Psoriasis Thyroid disease GERD (gastroesophageal reflux disease) Osteopenia Neuropathy Carpal tunnel syndrome Arthritis Atherosclerosis of coronary artery of resighini heart without angina pectoris Non-STEMI (non-ST elevated myocardial infarction) ( 07/2017) Hypertension Hyperlipidemia Surgical History History of left knee replacement History of colonoscopy (07/02/17) History of tubal ligation History of tonsillectomy and adenoidectomy History of hysterectomy History of carpal tunnel surgery of right wrist History of bladder suspension procedure History of foot surgery Family History Brother Alcoholism Myocardial infarction Kidney disease Multiple myeloma Mother Arthritis Blood clot in vein Father Cancer Renal Skin Kidney disease Social History household members: spouse Smoking Status: Never smoker second hand exposure: No alcohol intake: current alcohol intake frequency: a few times a week Alcohol type: wine substance use type: does not use caffeine: Yes frequency: 3-4 times per week HPI HPI Chief Complaint: 2 week f/u Details: ROMERO GRAY, is a 74 F who presents to the office today for ER hospital follow-up. Recently had an episode of non-STEMI, in the setting of a history of Takotsubo cardiomyopathy. Her last event so to speak with us in 2014. She did recently go on vacation. She is not felt under any type of undue stresses recently. She did have a steroid shot, right hip, presumably Decadron that was about a month prior to this event. In any event she was at the fair earlier in the day, and then towards evening, developed chest pain, accompanied by nausea sensation. Opting ER visit. She was found to have non-STEMI. Pain had largely resolved at the time of admission to the hospital but had a little bit through the night she states. After that she has been pain-free. The next day, she underwent repeat heart catheterization showing 40% smooth proximal RCA lesion, otherwise coronary arteries are normal. She has not had any further chest pain since. She still has tiredness and fatigue but getting better. Review of systems per chart. Physical exam. Vital signs on chart. My exam is focused. No obvious jugular venous distention. Her lungs are without wheeze rhonchi rales. The heart is regular. Not tachycardic. No clear gallop or rub murmur was identified on exam. The abdomen is soft. Bowel sounds are present throughout. No leg trina (more content not included)... Normal [facility] Cardiology Visit Reporton Cardiology Visit Report [facility] [address] [place] [address] OFFICE VISIT Date of Service: 04/30/24 MR#: [id number] Acct: [id number] Name: ROMERO GRAY Rep #: [id number] : 1950 Provider: Dr. Gentry palomino MD Age/Sex: 74/F Location: [facility] Status: Signed [facility] History of Present Illness Details: ROMERO GRAY, is a 74 F who presents to the office today for a cardiovascular follow-up. Patient was recently discharged from [facility] where she was admitted April 26 through April 28. During this admission she presented with what appeared to be a non-STEMI but it catheterization was shown to be Takotsubo's. Her ejection fraction was estimated at 35% at cath and echocardiogram was performed which showed an EF of 45%. The patient had not experienced any type of emotional or physical stressors. Her coronary artery showed minimal disease there was some slow flow documented in the circumflex. The patient is now here for titration of her guideline directed medical therapy for LV recovery. The patient does not have a family history of cardiac issues she does have a history of well- controlled hypertension and hyperlipidemia she is on statin therapy. She is not diabetic hemoglobin A1c was 5.6 and she has never smoked. She had a non-ST myocardial infarction in July 2017. Cath did not reveal any definitive etiology of her non-STEMI. The function was normal with an EF of 60% but with some anterior hypokinesis. The left anterior descending had mild luminal irregularities that were less than 30% in the circumflex and right coronary were angiographically normal. Retrospect the patient at that time was undergoing significant family issues and personal health issues with recurrent problems with her failed surgery on her right foot and her father . Possible this was complicit in her presentation with a non-STEMI. Currently the patient reports she is doing very well in her home environment she is able to go up a flight of stairs but she is limited her activities levels since being discharged on April 28. She denies any chest symptoms denies any PND orthopnea denies any lower extremity edema she has bilateral puffy ankles from prior traumatic issues. The patient denies any syncope or near syncope and denies any dizziness with change of position. Blood pressure in office today is 123/80 with a heart rate of 69 respiratory rate 18 O2 sats 95% on room air. 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 Intake Vital Signs 04/26/24 22:53 04/30/24 08:30 Height 5 ft 5 in 5 ft 5 in Weight: 199 lb BMI 33.1 BP 123/80 H Blood Pressure Location Rt brachial Position Sitting Respiration 18 Pulse 69 Pulse Source Monitor Pulse Oximetry (%) 95 Oxygen Delivery Method room air Intake Visit Reasons: [facility] NSTEMI 04/28 Human Services Professional Required: No Accompanied by: Is patient in pain?: No Allergies Sulfa (Sulfonamide Antibiotics) Allergy (Verified 04/30/24 08:31) Rash Medications ???Medication ???Instructions ???Recorded ???Confirmed ???Type aspirin 81 mg chewable tablet 81 mg PO DAILY@0800 ##90 07/26/17 04/30/24 Rx cholecalciferol (vitamin D3) 125 125 mcg PO DAILY 07/04/21 04/30/24 History mcg (5,000 unit) tablet atorvastatin 20 mg tablet 20 mg PO QHS #90 tabs 05/13/23 04/30/24 Rx levothyroxine 75 mcg tablet 75 mcg PO DAILY #90 tabs 09/11/23 04/30/24 Rx lisinopril 20 0.5 tab PO DAILY #90 tabs 11/28/23 04/30/24 Rx mg-hydrochlorothiaz hoa 12.5 mg tablet trazodone 50 mg tablet 50 mg PO QHS PRN insomnia 01/07/24 04/30/24 History estradiol 0.01% (0.1 mg/gram) 1 g vaginal .COMPLEX 01/12/24 04/30/24 History vaginal cream psyllium husk 0.52 gram capsule 0.52 g PO DAILY bm 01/12/24 04/30/24 History (Daily Fiber) vitamin B complex (Complex B-100 1 tab PO DAILY 01/12/24 04/30/24 History tablet,extended release) carvedilol 3.125 mg tablet 3.125 mg PO BIDCM 30 days #60 tabs 04/28/24 04/30/24 Rx spironolactone 25 mg tablet 25 mg PO QDAY #90 tabs 04/30/24 04/30/24 Rx Ejection fraction %: 40 Have you fallen in the past year?: No [facility] Medical History Recurrent Clostridioides difficile diarrhea Hammer toe TIA (transient ischemic attack) Psoriasis Thyroid disease GERD (gastroesophageal reflux disease) Osteopenia Neuropathy Carpal tunnel syndrome Arthritis Atherosclerosis of coronary artery of resighini heart without angina pectoris Non-STEMI (non-ST elevated myocardial infarction) ( 07/2017) Hypertension Hyperlipidemia Surgical History History of left knee replacement History of colonoscopy (07/02/17) Histor (more content not included)... Normal [facility] Basic Metabolic Profile (BMP )on 04-28-2024 BUN/CRE 13.3 RATIO Normal 10-20 [facility] Comment on above: Performed By: #### L 100.0500, L500.2500 #### [facility] Laboratory [address] [place], [address] CA,Total 9.2 mg/dL Normal 8.5-10.1 [facility] Comment on above: Performed By: #### L 100.0500, L500.2500 #### [facility] [address] [place], [address] Chloride [Moles/Vol] 106 mmol/L Normal 98-107 [facility] Comment on above: Performed By: #### L 100.0500, L500.2500 #### [facility] [address] [place], [address] CO2 [Moles/Vol] 27.0 mmol/L Normal 21.0-32.0 [facility] Comment on above: Performed By: #### L 100.0500, L500.2500 #### [facility] [address] [place], [address] Creatinine [Mass/Vol] 0.90 mg/dL Normal 0.55-1.02 [facility] Comment on above: Result Comment: The validity of the calculated GFR GFRAA in patients over 70 years has not been determined. Clinical correlation is essential. Performed By: #### L 100.0500, L500.2500 #### [facility] [address] [place], [address] ECRCL 62.08 ml/min Normal [facility] Comment on above: Performed By: #### L 100.0500, L500.2500 #### [facility] [address] [place], [address] EST GFR - AA 79 mL/min Normal >60 [facility] Comment on above: Result Comment: Afri can Turkmen GFR Calc Performed By: #### L 100.0500, L500.2500 #### [facility] [address] [place], [address] GAP 3 Low 5-15 [facility] Comment on above: Performed By: #### L 100.0500, L500.2500 #### [facility] [address] [place], [address] GFR/1.73 sq M.predicted among non-blacks MDRD (S/P/Bld) [Vol rate/Area] 65 mL/min/{1.73_m2} Normal >60 [facility] Comment on above: Result Comment: Non- GFR Calc Performed By: #### L 100.0500, L500.2500 #### [facility] [address] [place], [address] Glucose [Mass/Vol] 114 mg/dL High 74-106 [facility] Comment on above: Result Comment: Fast ing Glucose result from 100 to 125 mg/dL suggests IMPAIRED HOMEOSTASIS per A.D.A. criteria. Performed By: #### L 100.0500, L500.2500 #### [facility] [address] [place], [address] Potassium [Moles/Vol] 4.0 mmol/L Normal 3.5-5.1 [facility] Comment on above: Performed By: #### L 100.0500, L500.2500 #### [facility] [address] [place], [address] Sodium [Moles/Vol] 136 mmol/L Normal 136-145 [facility] Comment on above: Performed By: #### L 100.0500, L500.2500 #### [facility] [address] [place], [address] Urea nitrogen [Mass/Vol] 12 mg/dL Normal 7-18 [facility] Comment on above: Performed By: #### L 100.0500, L500.2500 #### [facility] [address] [place], [address] CBC-Complete Blood Cnt No Di ffon 04-28-2024 Erythrocyte distribution width (RBC) [Ratio] 14.6 % Normal 11.6-14.6 [facility] Comment on above: Performed By: #### L 100.0500, L500.2500 #### [facility] [address] [place], [address] Hematocrit (Bld) [Volume fraction] 39.1 % Normal 37-47 [facility] Comment on above: Performed By: #### L 100.0500, L500.2500 #### [facility] [address] [place], [address] Hemoglobin (Bld) [Mass/Vol] 13.1 g/dL Normal 12.0-15.0 [facility] Comment on above: Performed By: #### L 100.0500, L500.2500 #### [facility] [address] [place], [address] MCH (RBC) [Entitic mass] 32.8 pg High 27.0-32.0 [facility] Comment on above: Performed By: #### L 100.0500, L500.2500 #### [facility] [address] [place], [address] MCHC (RBC) [Mass/Vol] 33.5 g/dL Normal 32-36 [facility] Comment on above: Performed By: #### L 100.0500, L500.2500 #### [facility] [address] [place], [address] MCV (RBC) [Entitic vol] 97.8 fL Normal 81-99 [facility] Comment on above: Performed By: #### L 100.0500, L500.2500 #### [facility] [address] [place], [address] Platelet mean volume (Bld) [Entitic vol] 9.2 fL Normal 6.2-12.0 [facility] Comment on above: Performed By: #### L 100.0500, L500.2500 #### [facility] [address] [place], [address] Platelets (Bld) [#/Vol] 220 10*3/uL Normal 150-450 [facility] Comment on above: Performed By: #### L 100.0500, L500.2500 #### [facility] [address] [place], [address] RBC (Bld) [#/Vol] 4.00 10*6/uL Low 4.2-5.4 [facility] Comment on above: Performed By: #### L 100.0500, L500.2500 #### [facility] [address] [place], [address] RDW SD 53.2 fl High 35.1-43.9 [facility] Comment on above: Performed By: #### L 100.0500, L500.2500 #### [facility] [address] [place], [address] WBC (Bld) [#/Vol] 8.1 10*3/uL Normal 4.4-11.0 [facility] Comment on above: Performed By: #### L 100.0500, L500.2500 #### [facility] [address] [place], [address] Discharge Instructionon 04-19 Discharge Instruction [facility] Medical Records Department [address] [place] [address] Instructions for Home/Discharge Instructions 04/28/24 1023 MR#: [id number] Acct: [id number] Name: ROMERO GRAY Rep #: [id number] : 1950 74 From: Beatris Atkins MD PCP: Dr. Abran Yanes MD Status:ADM IN Discharge Instructions Diet Discharge Diet: - (Recommend less than 3 g of sodium and less than 2 L of fluids daily) Activity Discharge Activity: - (See attached instructions) Follow Up Care Test Results: Test results from this visit will be discussed in further detail at your follow-up appointment, if applicable. Discharge Plan Admission Admit Date/Time: 04/26/24 21:25 Primary Reason for Your Visit: Chest pain Attending Provider: Beatris Atkins Primary Care Provider: Abran Yanes Consulting Providers: Dash Prabhakar; Liliya Ballard Instructions Patient Instructions: Takotsubo Cardiomyopathy Additional Instructions / Restrictions: DISCHARGE INSTRUCTIONS PLEASE READ *Please take this with you to your next doctors appointment* -Your metoprolol's been discontinued and he will instead be taking carvedilol, please continue other home medications -You will need to follow-up with cardiology upon discharge, please call the office upon discharge to schedule your hospital follow-up appointment ) -Please take your medications as prescribed, do not skip doses -Check your incisions every day for signs of infection which would include redness, swelling, leaking. It is normal to have a small bruise or bump where the catheter was placed but a bruise that is getting larger is not normal. Please tell your healthcare team about this. Please proceed to the emergency department if you have uncontrollable bleeding from the site. -Okay to shower from the day after your heart catheterization but keep your incision site clean and dry -Recommend less than 3 g of sodium and less than 2 L of fluids daily. -Please call your primary care provider's office upon discharge to schedule a hospital follow up within 1 week. -For any concerning signs or symptoms please call 911 or proceed to the nearest emergency department Discharge Orders/Prescription s Prescriptions: New carvedilol 3.125 mg Tablet 3.125 mg PO BIDCM 30 Days Qty: 60 0RF Continued cholecalciferol (vitamin D3) 125 mcg (5,000 unit) tablet 125 mcg PO DAILY trazodone 50 mg tablet 50 mg PO QHS PRN (Reason: insomnia) aspirin 81 MG tablet,chewable 81 mg PO DAILY@0800 Qty: 90 0RF estradiol 0.01 % (0.1 mg/gram) cream 1 g vaginal .COMPLEX Rx Instructions: 1 g vaginal 1gm each night for 2 weeks, then 2x a week; NEEDED Complex B-100 Tablet Extended Release 1 tab PO DAILY psyllium husk [Daily Fiber] 0.52 gram capsule 0.52 g PO DAILY atorvastatin 20 mg tablet 20 mg PO QHS Qty: 90 3RF levothyroxine 75 mcg tablet 75 mcg PO DAILY Qty: 90 3RF lisinopril-hydrochl orothiazide 20-12.5 mg tablet 0.5 tab PO DAILY Qty: 90 1RF Discontinued metoprolol tartrate 25 mg tablet 12.5 mg PO BID Qty: 90 3RF Referrals / Follow Up: Dash Prabhakar MD [Med Staff - Active Staff] - ( -You will need to follow-up with cardiology upon discharge, please call the office upon discharge to schedule your hospital follow-up appointment (ph [phone])) Abran Yanes MD [Primary Care Provider] - Within 1 Week Disposition Disposition (needs filled in before D/C Order can be placed): Home, Self Care 04/28/24 1031 Beatris Atkins MD CC: Dr. Liliya Ballard MD; Dr. Dash Prabhakar MD; Dr. Abran Yanes MD Signed Normal [facility] CBC W/Diff, Automatedon 09- Absolute Lymph 2.02 X10 3/uL Normal 0.83-4.51 [facility] Comment on above: Performed By: #### L 100.0100, L500.4050, L500.4100 #### [facility] [address] [place], [address] Absolute Neut 5.3 X10 3/uL Normal 2.0-7.7 [facility] Comment on above: Performed By: #### L 100.0100, L500.4050, L500.4100 #### [facility] [address] [place], [address] Basophils/100 WBC (Bld) 0.5 % Normal 0-1 [facility] Comment on above: Performed By: #### L 100.0100, L500.4050, L500.4100 #### [facility] [address] [place], [address] Eosinophils/100 WBC (Bld) 2.8 % Normal 0-5 [facility] Comment on above: Performed By: #### L 100.0100, L500.4050, L500.4100 #### [facility] [address] [place], [address] Erythrocyte distribution width (RBC) [Ratio] 14.3 % Normal 11.6-14.6 [facility] Comment on above: Performed By: #### L 100.0100, L500.4050, L500.4100 #### [facility] [address] [place], [address] Hematocrit (Bld) [Volume fraction] 38.0 % Normal 37-47 [facility] Comment on above: Performed By: #### L 100.0100, L500.4050, L500.4100 #### [facility] [address] [place], [address] Hemoglobin (Bld) [Mass/Vol] 12.9 g/dL Normal 12.0-15.0 [facility] Comment on above: Performed By: #### L 100.0100, L500.4050, L500.4100 #### [facility] [address] [place], [address] IG% 0.200 Normal 0.0-0.9 [facility] Comment on above: Result Comment: IG% - Immature Granulocytes (promyelocytes, myelocytes and metamyelocytes) > 1% indicates that a LEFT SHIFT is Present. Performed By: #### L 100.0100, L500.4050, L500.4100 #### [facility] [address] [place], [address] Lymphocytes/100 WBC (Bld) 23.6 % Normal 19-41 [facility] Comment on above: Performed By: #### L 100.0100, L500.4050, L500.4100 #### [facility] [address] [place], [address] MCH (RBC) [Entitic mass] 32.7 pg High 27.0-32.0 [facility] Comment on above: Performed By: #### L 100.0100, L500.4050, L500.4100 #### [facility] [address] [place], [address] MCHC (RBC) [Mass/Vol] 33.9 g/dL Normal 32-36 [facility] Comment on above: Performed By: #### L 100.0100, L500.4050, L500.4100 #### [facility] [address] [place], [address] MCV (RBC) [Entitic vol] 96.4 fL Normal 81-99 [facility] Comment on above: Performed By: #### L 100.0100, L500.4050, L500.4100 #### [facility] [address] [place], [address] Monocytes/100 WBC (Bld) 10.7 % High 0-10 [facility] Comment on above: Performed By: #### L 100.0100, L500.4050, L500.4100 #### [facility] [address] [place], [address] Neutrophils/100 WBC (Bld) 62.2 % Normal 47-70 [facility] Comment on above: Performed By: #### L 100.0100, L500.4050, L500.4100 #### [facility] [address] [place], [address] Nucleated RBC (Bld) [#/Vol] 0 10*3/uL Normal 0-5 [facility] Comment on above: Performed By: #### L 100.0100, L500.4050, L500.4100 #### [facility] [address] [place], [address] Platelet mean volume (Bld) [Entitic vol] 9.1 fL Normal 6.2-12.0 [facility] Comment on above: Performed By: #### L 100.0100, L500.4050, L500.4100 #### [facility] [address] [place], [address] Platelets (Bld) [#/Vol] 219 10*3/uL Normal 150-450 [facility] Comment on above: Performed By: #### L 100.0100, L500.4050, L500.4100 #### [facility] [address] [place], [address] RBC (Bld) [#/Vol] 3.94 10*6/uL Low 4.2-5.4 [facility] Comment on above: Performed By: #### L 100.0100, L500.4050, L500.4100 #### [facility] [address] [place], [address] RDW SD 50.4 fl High 35.1-43.9 [facility] Comment on above: Performed By: #### L 100.0100, L500.4050, L500.4100 #### [facility] [address] [place], [address] WBC (Bld) [#/Vol] 8.6 10*3/uL Normal 4.4-11.0 [facility] Comment on above: Performed By: #### L 100.0100, L500.4050, L500.4100 #### [facility] [address] [place], [address] Cardiac Cath Diagn[facility]icon Cardiac Cath Diagnostic [facility] Imaging Services [address] [place] [address] Cardiac Cath Diagnostic MR#: [id number] Acct: [id number] Name: ROMERO GRAY Rep #: [id number] : 1950 74 From: Dash Prabhakar MD PCP: Dr. Abran Yanes MD Status:ADM IN Patient Name: ROMERO GRAY Study Date: 04/27/2024 Performing: Dash Prabhakar MD Ht: 65 inches 165.1 cm : 1950 Wt: 200.84 lbs 91.1 kg Age: 74 Gender: female BSA: 1.98 PROCEDURE(S) PERFORMED DC01-(95843)LHC/COR /LV CLINICAL PROFILE AND INDICATIONS Indications: Suspected CAD Heart Failure: NYHA Class: 3 Stress/Imaging Stress/Image Study Performed: No CONCLUSIONS Minimal coronary artery disease. Cardiomyopathy: Takotsubo RECOMMENDATIONS Medical therapy DESCRIPTION OF PROCEDURE The patient arrived to the procedure lab. The risks and benefits of the procedure as well as a full description of our services here and current unavailability of surgical backup were fully explained to the patient and/or their significant other prior to the catheterization. The Timeout was completed, verifying the correct patient and procedure. The patient's procedural site was prepped and draped in the usual fashion. Local anesthetic was given subcutaneously to right radial region with Lidocaine 2%. Using a modified Seldinger technique, arterial access was obtained via the right radial artery, a 6Fr sheath was inserted. Left Coronary Artery selective angiography was performed in multiple views using a 5 Fr. 4.0 [place] catheter. Right Coronary Artery selective angiography was then performed in multiple views using a 5 Fr. 4.0 [place] catheter. Left Ventriculography was performed in KNIGHT projection using a 5 Fr. Pigtail catheter. LV to AO pullback pressures were then recorded.The arterial sheath was pulled and a TR Band was applied for hemostasis 11 ml of air CORONARY ANGIOGRAPHY DOMINANCE: Right Dominant LEFT HEART ASSESSMENT Left Ventricular Ejection Fraction: by LV Gram 35 % Anterior Hypokinesis - Severe. Apical Hypokinesis - Severe Consistent with Takotsubo cardiomyopathy. LEFT MAIN: Angiographically normal LEFT ANTERIOR DESCENDING ARTERY: Angiographically normal CIRCUMFLEX ARTERY: Angiographically normal RIGHT CORONARY ARTERY: Proximal smooth 40% stenosis COMPLICATIONS No Complications PROCEDURE MEDICATIONS Versed 1 mg IV Fentanyl 50 mcg IV Oxygen: 2 L/min via nasal cannula Heparin given IA 04/27/2024 08:58:28 IV Bolus: .9 NaCl 250 ml total 04/27/2024 09:03:36 IV Bolus: .9 NaCl 250 ml total 04/27/2024 09:03:36 SUMMARY OF HEMODYNAMIC DATA Time AIR REST ECG 08:44:37 AO 99/62 (78) SA 09:14:25 AO 90/54 (69) 09:15:48 AO 98/60 (77) 09:18:06 LV 97/10, 22 09:21:02 LV 84/11, 19 09:21:08 LV 87/10, 15 09:21:51 LVp 89/17, 27 09:22:04 AOp 93/55 (71) 09:22:09 Signed By Dash Prabhakar MD On 04/27/2024 09:33:58 Dash Prabhakar MD 04/27/24 0935 Date Dash Ramirez Signature: Date (if indicated) CC: Dr. Dash Prabhakar MD; Dr. Abran Yanes MD; Dr. Beatris Atkins MD Date Dictated: 04/27/2454 Date Transcribed: 04/27/24932 Bottom Finisher: CO Signed Normal [facility] Metabolic Prof ilon 04-27-2024 Albumin [Mass/Vol] 2.8 g/dL Low 3.2-5.0 [facility] Comment on above: Performed By: #### L 100.0100, L500.4050, L500.4100 #### [facility] Laboratory [address] [place], [address] Albumin/Globulin [Mass ratio] 0.9 {ratio} Normal 0.9-2.4 [facility] Comment on above: Performed By: #### L 100.0100, L500.4050, L500.4100 #### [facility] [address] [place], [address] ALK P 44 U/L Low 45-117 [facility] Comment on above: Performed By: #### L 100.0100, L500.4050, L500.4100 #### [facility] [address] [place], [address] ALT [Catalytic activity/Vol] 33 U/L Normal 13-56 [facility] Comment on above: Performed By: #### L 100.0100, L500.4050, L500.4100 #### [facility] [address] [place], [address] AST [Catalytic activity/Vol] 75 U/L High 15-37 [facility] Comment on above: Performed By: #### L 100.0100, L500.4050, L500.4100 #### [facility] [address] [place], [address] Bilirubin [Mass/Vol] 0.70 mg/dL Normal 0.20-1.00 [facility] Comment on above: Result Comment: For patients on eltrombopag therapy, use of Dimension Raymond TBIL is not recommended. Performed By: #### L 100.0100, L500.4050, L500.4100 #### [facility] [address] [place], [address] BUN/CRE 25.8 RATIO High 10-20 [facility] Comment on above: Performed By: #### L 100.0100, L500.4050, L500.4100 #### [facility] [address] [place], [address] CA,Total 8.7 mg/dL Normal 8.5-10.1 [facility] Comment on above: Performed By: #### L 100.0100, L500.4050, L500.4100 #### [facility] [address] [place], [address] Chloride [Moles/Vol] 103 mmol/L Normal 98-107 [facility] Comment on above: Performed By: #### L 100.0100, L500.4050, L500.4100 #### [facility] [address] [place], [address] CO2 [Moles/Vol] 25.0 mmol/L Normal 21.0-32.0 [facility] Comment on above: Performed By: #### L 100.0100, L500.4050, L500.4100 #### [facility] [address] [place], [address] Creatinine [Mass/Vol] 0.85 mg/dL Normal 0.55-1.02 [facility] Comment on above: Result Comment: The validity of the calculated GFR GFRAA in patients over 70 years has not been determined. Clinical correlation is essential. Performed By: #### L 100.0100, L500.4050, L500.4100 #### [facility] [address] [place], [address] ECRCL 65.73 ml/min Normal [facility] Comment on above: Performed By: #### L 100.0100, L500.4050, L500.4100 #### [facility] [address] [place], [address] EST GFR - AA 84 mL/min Normal >60 [facility] Comment on above: Result Comment: Afri can Turkmen GFR Calc Performed By: #### L 100.0100, L500.4050, L500.4100 #### [facility] [address] [place], [address] GAP 6 Normal 5-15 [facility] Comment on above: Performed By: #### L 100.0100, L500.4050, L500.4100 #### [facility] [address] [place], [address] GFR/1.73 sq M.predicted among non-blacks MDRD (S/P/Bld) [Vol rate/Area] 69 mL/min/{1.73_m2} Normal >60 [facility] Comment on above: Result Comment: Non- GFR Calc Performed By: #### L 100.0100, L500.4050, L500.4100 #### [facility] [address] [place], [address] Globulin (S) [Mass/Vol] 3.1 g/dL Normal 2.2-4.2 [facility] Comment on above: Performed By: #### L 100.0100, L500.4050, L500.4100 #### [facility] [address] [place], [address] Glucose [Mass/Vol] 113 mg/dL High 74-106 [facility] Comment on above: Result Comment: Fast ing Glucose result from 100 to 125 mg/dL suggests IMPAIRED HOMEOSTASIS per A.D.A. criteria. Performed By: #### L 100.0100, L500.4050, L500.4100 #### [facility] [address] [place], [address] Potassium [Moles/Vol] 3.6 mmol/L Normal 3.5-5.1 [facility] Comment on above: Performed By: #### L 100.0100, L500.4050, L500.4100 #### [facility] [address] [place], [address] Sodium [Moles/Vol] 134 mmol/L Low 136-145 [facility] Comment on above: Performed By: #### L 100.0100, L500.4050, L500.4100 #### [facility] [address] [place], [address] T PROT 5.9 g/dL Low 6.4-8.2 [facility] Comment on above: Performed By: #### L 100.0100, L500.4050, L500.4100 #### [facility] [address] [place], [address] Urea nitrogen [Mass/Vol] 22 mg/dL High 7-18 [facility] Comment on above: Performed By: #### L 100.0100, L500.4050, L500.4100 #### [facility] [address] [place], [address] Consultation - Cardiologyon 04-27-2024 Consultation - Cardiology [facility] Medical Records Department [address] [place] [address] Consultation - Cardiology 04/27/24 0804 MR#: [id number] Acct: [id number] Name: ROMERO GRAY Rep #: [id number] : 1950 74 From: Dash Prabhakar MD PCP: Dr. Abran Yanes MD Status:ADM IN Location: [place] [address] Assessment Plan Assessment/Plan (1) NSTEMI, initial episode of care: PLAN: She presents with a non-ST elevation myocardial infarction. The exact precipitating factor is unclear. The above may be secondary to plaque rupture. She has been on heparin overnight as well as aspirin. My recommendations will be as follows: Continue beta-karma Continue high intensity statin Continue aspirin Scheduled for cardiac catheterization this morning and depending on the results further recommendations will be made. Addendum: Cardiac catheterization this morning demonstrated the following: Left main coronary artery noted to be normal. Left anterior descending artery with no significant stenosis. Left circumflex artery with no significant stenosis but slow flow. Dominant right coronary artery with proximal 40% stenosis and no significant distal disease. Left ventricular ejection fraction reduced approximately 30 to 35% with severe hypokinesis of the mid anterior wall apex and inferoapical wall. The above is consistent with a Takotsubo cardiomyopathy. Will manage with expectant therapy. HPI Consult Data Date of Consult: 04/27/24 HPI Narrative HPI Narrative: ROMERO GRAY, is a 74 F who presents with chest discomfort which she describes as a heavy sensation which started just before she went [facility]. She says that she persisted went on and as she was walking she got more discomfort and then dizzy as well as nauseated and diaphoretic. She decided to present to the emergency room. In the emergency room she was evaluated her EKG was noted to be normal but her cardiac enzymes were abnormal. She was admitted and cardiology was consulted for further evaluation and management. She does have a history of a non-ST elevation myocardial infarction in July 2017 during which time she had a cardiac catheterization with demonstrated luminal irregularities in the LAD and the circumflex and the right coronary artery. She has had some ankle issues but no other cardiac problems. She denies any dizziness or diaphoresis near syncope or syncope. She is also had bilateral knee replacements. [facility] Medical History Recurrent Clostridioides difficile diarrhea Hammer toe TIA (transient ischemic attack) Psoriasis Thyroid disease GERD (gastroesophageal reflux disease) Osteopenia Neuropathy Carpal tunnel syndrome Arthritis Atherosclerosis of coronary artery of resighini heart without angina pectoris Non-STEMI (non-ST elevated myocardial infarction) ( 07/2017) Hypertension Hyperlipidemia Home Medications ???Medication ???Instructions ???Recorded ???Last Taken ???Type aspirin 81 mg chewable tablet 81 mg PO DAILY@0800 ##90 07/26/17 04/26/24 Rx cholecalciferol (vitamin D3) 125 125 mcg PO DAILY 07/04/21 01/12/24 History mcg (5,000 unit) tablet atorvastatin 20 mg tablet 20 mg PO QHS #90 tabs 05/13/23 04/26/24 Rx levothyroxine 75 mcg tablet 75 mcg PO DAILY #90 tabs 09/11/23 04/26/24 Rx lisinopril 20 0.5 tab PO DAILY #90 tabs 11/28/23 04/26/24 Rx mg-hydrochlorothiaz hoa 12.5 mg tablet trazodone 50 mg tablet 50 mg PO QHS PRN insomnia 01/07/24 04/26/24 History estradiol 0.01% (0.1 mg/gram) 1 g vaginal .COMPLEX 01/12/24 Unknown History vaginal cream psyllium husk 0.52 gram capsule 0.52 g PO DAILY bm 01/12/24 04/26/24 History (Daily Fiber) vitamin B complex (Complex B-100 1 tab PO DAILY 01/12/24 01/12/24 History tablet,extended release) metoprolol tartrate 25 mg tablet 12.5 mg (1/2 x 25 mg) PO BID #90 03/31/24 04/26/24 Rx tabs Allergy/AdvReac Type Severity Reaction Status Date / Time Sulfa (Sulfonamide Allergy Rash Verified 04/26/24 18:51 Antibiotics) Family History Brother Alcoholism Myocardial infarction Kidney disease Multiple myeloma Mother Arthritis Blood clot in vein Father Cancer Renal Skin Kidney disease Surgical History History of left knee replacement History of colonoscopy (07/02/17) History of tubal ligation History of tonsillectomy and adenoidectomy History of hysterectomy History of carpal tunnel surgery of right wrist History of bladder suspension procedure History of foot surgery Social History household members: spouse Smoking Status: Never smoker second hand exposure: No alcohol intake: current alcohol inta (more content not included)... Normal [facility] L501.4020on 04-27-2024 [place] [address] pg/mL Invalid Interpretation Code 3.0-54.0 [facility] Comment on above: Order Comment: 'TROP ' Serial specimen #1, #2 or #3: 3 Result Comment: Crit ical Result(s) Called at: 01:37:42 04/27/2024 by: Sarah Stewart to clyde. Results read back by same. Please Note: New Test Units and Gender Specific Reference Ranges. For more information see Policy Stat Procedure Raymond High Sensitivity Troponin (TNIH) and attachments. Performed By: #### L 501.4020 #### [facility] [address] [place], [address] Lipid Profileon 04-27-2024 Cholesterol [Mass/Vol] 145 mg/dL Normal [facility] Comment on above: Result Comment: <200 mg/dL Desirable 200-240 mg/dL Borderline >240 mg/dL High Risk Performed By: #### L 100.0100, L500.4050, L500.4100 #### [facility] [address] [place], [address] Cholesterol in HDL [Mass/Vol] 64 mg/dL Normal [facility] Comment on above: Result Comment: The drugs N-Acetylcysteine and Metamizole may falsely depress this assay. Reference Range HDL <40 mg/dL Low HDL Cholesterol HDL >or= 60 mg/dL High HDL Cholesterol Performed By: #### L 100.0100, L500.4050, L500.4100 #### [facility] [address] [place], [address] Cholesterol in LDL [Mass/Vol] 64 mg/dL Normal 0-130 [facility] Comment on above: Performed By: #### L 100.0100, L500.4050, L500.4100 #### [facility] [address] [place], [address] Cholesterol in VLDL [Mass/Vol] 17 mg/dL Normal 5-40 [facility] Comment on above: Performed By: #### L 100.0100, L500.4050, L500.4100 #### [facility] [address] [place], [address] Triglyceride [Mass/Vol] 83 mg/dL Normal [facility] Comment on above: Result Comment: The drugs N-Acetylcysteine and Metamizole may falsely depress this assay. Serum Triglycerides Reference Interval Normal <150 mg/dL Borderline high 150 - 199 mg/dL High 200 - 499 mg/dL Very High > or = 500 mg/dL Performed By: #### L 100.0100, L500.4050, L500.4100 #### [facility] [address] [place], [address] Partial Thromboplast Timeon 04-27-2024 aPTT Coag (Bld) [Time] 92.0 s Invalid Interpretation Code 24.1-36.2 [facility] Comment on above: Result Comment: CRIT ICAL VALUE VERIFIED. CALLED TO CLYDE 04/27/24 6105 Sarah Stewart. RESULTS READ BACK BY SAME. Performed By: #### L 500.2500 #### [facility] [address] [facility] [place], [address] 12 Lead EKGon 04-26-2024 12 Lead EKG [facility] Cardiovascular Services [address] [place] [address] 12 Lead EKG 04/26/24 2309 MR#: [id number] Acct: [id number] Name: ROMERO GRAY Rep #: [id number] : 1950 74 From: Dash Prabhakar MD Attending Dr: Dr. Beatris Atkins MD Status: ADM IN Ordering Dr: Liliya Ballard MD Date: 04/26/24 Location: [facility] Sex: F C Admitted: 04/26/24 Test Reason : CP ADMIT Blood Pressure : / mmHG Vent. Rate : 061 BPM Atrial Rate : 061 BPM P-R Int : 184 ms QRS Dur : 080 ms QT Int : 420 ms P-R-T Axes : -09 -17 015 degrees QTc Int : 422 ms Normal sinus rhythm Inferior infarct , age undetermined Abnormal ECG When compared with ECG of 26-APR-2024 19:42, MANUAL COMPARISON REQUIRED, DATA IS UNCONFIRMED Confirmed by AKI ALVAREZ, DASH ([id number]), website/blog editor SARAH PAGAN ([id number]) on 04/27/2024 2:51:02 PM Referred By: PATTIE Confirmed By:DASH PRABHAKAR MD 04/27/24 1451 Date Dash Prabhakar MD CC: Dr. Liliya Ballard MD; Dr. Abran Yanes MD; Dr. Beatris Atkins MD Signed [facility] 12 Lead EKG [facility] Cardiovascular Services [address] [place] [address] 12 Lead EKG 04/26/241941 MR#: [id number] Acct: [id number] Name: ROMERO GRAY Rep #: [id number] : 1950 74 From: Dash Prabhakar MD Attending Dr: Dr. Beatris Atkins MD Status: ADM IN Ordering Dr: Trisha Dillon DO Date: 04/26/24 Location: [facility] Sex: F C Admitted: 04/26/24 Test Reason : REPEAT EKG Blood Pressure : / mmHG Vent. Rate : 055 BPM Atrial Rate : 055 BPM P-R Int : 192 ms QRS Dur : 084 ms QT Int : 432 ms P-R-T Axes : -16 -21 020 degrees QTc Int : 413 ms Sinus bradycardia Low voltage QRS Inferior infarct , age undetermined Abnormal ECG Confirmed by DASH PRABHAKAR MD ([id number]), website/blog editor VASILE HENRY ([id number]) on 04/27/2024 12:50:02 PM Referred By: YAKOV Confirmed By:DASH PRABHAKAR MD 04/27/24 1250 Date Dash Prabhakar MD CC: Dr. Trisha Dlilon DO; Dr. Abran Yanes MD; Dr. Beatris Atkins MD Signed [facility] 12 Lead EKG [facility] Cardiovascular Services [address] [place] [address] 12 Lead EKG 04/26/24 1852 MR#: [id number] Acct: [id number] Name: ROMERO GRAY Rep #: [id number] : 1950 74 From: Dash Prabhakar MD Attending Dr: Dr. Beatris Atkins MD Status: ADM IN Ordering Dr: Trisha Dillon DO Date: 04/26/24 Location: [facility] Sex: F C Admitted: 04/26/24 Test Reason : CP Blood Pressure : / mmHG Vent. Rate : 056 BPM Atrial Rate : 056 BPM P-R Int : 182 ms QRS Dur : 080 ms QT Int : 422 ms P-R-T Axes : -01 -10 037 degrees QTc Int : 407 ms Sinus bradycardia Inferior infarct (cited on or before 11-SEP-2005) Abnormal ECG Confirmed by AKI ALVAREZ, DASH ([id number]), website/blog editor VASILE HENRY ([id number]) on 04/27/2024 12:49:48 PM Referred By: CG Confirmed By:DASH PRABHAKAR MD 04/27/24 1249 Date Dash Prabhakar MD CC: Dr. Trisha Dillon DO; Dr. Abran Yanes MD; Dr. Beatris Atkins MD Signed Normal [facility] Basic Metabolic Profile (BMP )on 04-26-2024 BUN/CRE 23.8 RATIO High 10-20 [facility] Comment on above: Order Comment: 1Y Performed By: #### L 100.0100, L500.2500, L501.5425 ####[facility] [address] [place], [place], [address] CA,Total 9.3 mg/dL Normal 8.5-10.1 [facility] Comment on above: Order Comment: 1Y Performed By: #### L 100.0100, L500.2500, L501.5425 ####[facility] [address] [place], [address] Chloride [Moles/Vol] 101 mmol/L Normal 98-107 [facility] Comment on above: Order Comment: 1Y Performed By: #### L 100.0100, L500.2500, L501.5425 ####[facility] [address] [place], [address] CO2 [Moles/Vol] 25.0 mmol/L Normal 21.0-32.0 [facility] Comment on above: Order Comment: 1Y Performed By: #### L 100.0100, L500.2500, L501.5425 ####[facility] [address] [place], [address] Creatinine [Mass/Vol] 1.22 mg/dL High 0.55-1.02 [facility] Comment on above: Order Comment: 1Y Result Comment: The validity of the calculated GFR GFRAA in patients over 70 years has not been determined. Clinical correlation is essential. Performed By: #### L 100.0100, L500.2500, L501.5425 ####[facility] [address] [place], [address] ECRCL 45.11 ml/min Normal [facility] Comment on above: Order Comment: 1Y Performed By: #### L 100.0100, L500.2500, L501.5425 ####[facility] [address] [place], [address] EST GFR - AA 56 mL/min Low >60 [facility] Comment on above: Order Comment: 1Y Result Comment: Afri can Turkmen GFR Calc Performed By: #### L 100.0100, L500.2500, L501.5425 ####[facility] [address] [place], [address] GAP 8 Normal 5-15 [facility] Comment on above: Order Comment: 1Y Performed By: #### L 100.0100, L500.2500, L501.5425 ####[facility] [address] [place], [address] GFR/1.73 sq M.predicted among non-blacks MDRD (S/P/Bld) [Vol rate/Area] 46 mL/min/{1.73_m2} Low >60 [facility] Comment on above: Order Comment: 1Y Result Comment: Non- GFR Calc Performed By: #### L 100.0100, L500.2500, L501.5425 ####[facility] [address] [place], [address] Glucose [Mass/Vol] 119 mg/dL High 74-106 [facility] Comment on above: Order Comment: 1Y Result Comment: Fast ing Glucose result from 100 to 125 mg/dL suggests IMPAIRED HOMEOSTASIS per A.D.A. criteria. Performed By: #### L 100.0100, L500.2500, L501.5425 ####[facility] [address] [place], [address] Potassium [Moles/Vol] 3.9 mmol/L Normal 3.5-5.1 [facility] Comment on above: Order Comment: 1Y Performed By: #### L 100.0100, L500.2500, L501.5425 ####[facility] [address] [place], [address] Sodium [Moles/Vol] 134 mmol/L Low 136-145 [facility] Comment on above: Order Comment: 1Y Performed By: #### L 100.0100, L500.2500, L501.5425 ####[facility] [address] [place], [address] Urea nitrogen [Mass/Vol] 29 mg/dL High 7-18 [facility] Comment on above: Order Comment: 1Y Performed By: #### L 100.0100, L500.2500, L501.5425 ####[facility] [address] [place], [address] CBC W/Diff, Automatedon 09-0 8-2024 Absolute Lymph 3.54 X10 3/uL Normal 0.83-4.51 [facility] Comment on above: Performed By: #### L 100.0100, L500.2500, L501.5425 ####[facility] [address] [place], [address] Absolute Neut 5.4 X10 3/uL Normal 2.0-7.7 [facility] Comment on above: Performed By: #### L 100.0100, L500.2500, L501.5425 ####[facility] [address] [place], [address] Basophils/100 WBC (Bld) 0.7 % Normal 0-1 [facility] Comment on above: Performed By: #### L 100.0100, L500.2500, L501.5425 ####[facility] [address] [place], [address] Eosinophils/100 WBC (Bld) 2.8 % Normal 0-5 [facility] Comment on above: Performed By: #### L 100.0100, L500.2500, L501.5425 ####[facility] [address] [place], [address] Erythrocyte distribution width (RBC) [Ratio] 14.2 % Normal 11.6-14.6 [facility] Comment on above: Performed By: #### L 100.0100, L500.2500, L501.5425 ####[facility] [address] [place], [address] Hematocrit (Bld) [Volume fraction] 42.8 % Normal 37-47 [facility] Comment on above: Performed By: #### L 100.0100, L500.2500, L501.5425 ####[facility] [address] [place], [address] Hemoglobin (Bld) [Mass/Vol] 14.4 g/dL Normal 12.0-15.0 [facility] Comment on above: Performed By: #### L 100.0100, L500.2500, L501.5425 ####[facility] [address] [place], [address] IG% 0.200 Normal 0.0-0.9 [facility] Comment on above: Result Comment: IG% - Immature Granulocytes (promyelocytes, myelocytes and metamyelocytes) > 1% indicates that a LEFT SHIFT is Present. Performed By: #### L 100.0100, L500.2500, L501.5425 ####[facility] [address] [place], [address] Lymphocytes/100 WBC (Bld) 34.3 % Normal 19-41 [facility] Comment on above: Performed By: #### L 100.0100, L500.2500, L501.5425 ####[facility] [address] [place], [address] MCH (RBC) [Entitic mass] 32.7 pg High 27.0-32.0 [facility] Comment on above: Performed By: #### L 100.0100, L500.2500, L501.5425 ####[facility] [address] [place], [address] MCHC (RBC) [Mass/Vol] 33.6 g/dL Normal 32-36 [facility] Comment on above: Performed By: #### L 100.0100, L500.2500, L501.5425 ####[facility] [address] [place], [address] MCV (RBC) [Entitic vol] 97.3 fL Normal 81-99 [facility] Comment on above: Performed By: #### L 100.0100, L500.2500, L501.5425 ####[facility] [address] [place], [address] Monocytes/100 WBC (Bld) 9.7 % Normal 0-10 [facility] Comment on above: Performed By: #### L 100.0100, L500.2500, L501.5425 ####[facility] [address] [place], [address] Neutrophils/100 WBC (Bld) 52.3 % Normal 47-70 [facility] Comment on above: Performed By: #### L 100.0100, L500.2500, L501.5425 ####[facility] [address] [place], [address] Nucleated RBC (Bld) [#/Vol] 0 10*3/uL Normal 0-5 [facility] Comment on above: Performed By: #### L 100.0100, L500.2500, L501.5425 ####[facility] [address] [place], [address] Platelet mean volume (Bld) [Entitic vol] 9.7 fL Normal 6.2-12.0 [facility] Comment on above: Performed By: #### L 100.0100, L500.2500, L501.5425 ####[facility] [address] [place], [address] Platelets (Bld) [#/Vol] 246 10*3/uL Normal 150-450 [facility] Comment on above: Performed By: #### L 100.0100, L500.2500, L501.5425 ####[facility] [address] [place], [address] RBC (Bld) [#/Vol] 4.40 10*6/uL Normal 4.2-5.4 [facility] Comment on above: Performed By: #### L 100.0100, L500.2500, L501.5425 ####[facility] [address] [place], [address] RDW SD 51.2 fl High 35.1-43.9 [facility] Comment on above: Performed By: #### L 100.0100, L500.2500, L501.5425 ####[facility] [address] [place], [address] WBC (Bld) [#/Vol] 10.3 10*3/uL Normal 4.4-11.0 [facility] Comment on above: Performed By: #### L 100.0100, L500.2500, L501.5425 ####[facility] [address] [place], [address] Chest 1 View (Portable)on Chest 1 View (Portable) [facility] Imaging Services [address] [place] [address] Chest 1 View (Portable) MR#: [id number] Acct: [id number] Name: ROMERO GRAY Rep #: [id number] : 1950 F 74 From: Julio César Miranda PCP: Dr. Abran Yanes MD Status: PRE ER Study: Chest 1 View (Portable) Date of Exam: 04/26/24 Exam# [id number] Ordering Dr: Trisha Dillon DO [id number] EXAM: XR CHEST, 1 VIEW CLINICAL INDICATION: chest pain TECHNIQUE: Frontal view of the chest. COMPARISON: 01.19.24 FINDINGS: LUNGS AND PLEURAL SPACES: Unremarkable. No consolidation or edema. No pneumothorax. No effusion. HEART: Unremarkable. Cardiac silhouette not enlarged. MEDIASTINUM: Central airways and mediastinal contour are unremarkable. BONES/JOINTS: Unremarkable. No acute fracture. SOFT TISSUES: Unremarkable. RAD/Chest 1 View (Portable) IMPRESSION: No radiographic evidence of acute cardiopulmonary disease. Electronically Signed: Julio César Salas MD at 19:48 EDT , CC: Dr. Trisha Dillon DO; Dr. Abran Yanes MD Bottom Finisher: Signed Normal [facility] Echo, Limited Studyon 2023 Echo, Limited Study [facility] Cardiovascular Services [address] [place] [address] Echo, Limited Study 04/27/24 1507 MR#: [id number] Acct: [id number] Name: ROMERO GRAY Rep #: [id number] : 1950 74 From: Dash Prabhakar MD Attending Dr: Dr. Beatris Atkins MD Status: ADM IN Ordering Dr: Liliya Ballard MD Date: 04/26/24 Location: [facility] Sex: F C Admitted: 04/26/24 Reason For Study: NSTEMI Procedure This was a limited 2D transthoracic echocardiogram. Exam performed portable in patient room. Left Ventricle Normal LV size. The left ventricular ejection fraction is 45 %. Stage 1 diastolic dysfunction. Anterior [place] : Hypokinetic. There are regional wall motion abnormalities as specified. Right Ventricle Normal RV size. Normal systolic function. Atria Normal left atrium. Normal right atrium. Mitral Valve Normal mitral valve. Tricuspid Valve Normal tricuspid valve. Mild tricuspid valve insufficiency. Pulmonary artery systolic pressure is 26 mmHg. Aortic Valve Trisinus/trileaflet aortic valve. Pulmonic Valve Normal pulmonic valve. Great Vessels Normal aortic root. The pulmonary artery is normal size. Pericardium/Pleural No pericardial effusion. MMode/2D Measurements Calculations LVIDd: 4.4 cm IVSd: 1.1 cm LVOT diam: 2.0 cm LVIDs: 3.2 cm LVPWd: 0.88 cm LVOT area: 3.1 cm2 RVDd: 3.7 cm FS: 26.3 % Ao root diam: 3.3 cm LAV(MOD-bp): 58.3 ml LVAd ap4: 27.0 cm2 LAV(MOD-bp) Indexed: 29.5 ml/m2 LVLd ap4: 8.0 cm LAV(MOD-sp2): 56.8 ml EDV(MOD-sp4): 74.2 ml LAV(MOD-sp4): 60.5 ml EDV(sp4-el): 77.1 ml LVAs ap4: 17.8 cm2 LVLs ap4: 7.1 cm ESV(MOD-sp4): 36.6 ml ESV(sp4-el): 37.6 ml EF(MOD-sp4): 50.6 % EF(sp4-el): 51.2 % LVAd ap2: 25.8 cm2 SV(MOD-sp4): 37.6 ml SV(MOD-sp2): 40.7 ml LVLd ap2: 7.7 cm EDV(MOD-sp2): 70.7 ml EDV(sp2-el): 73.6 ml LVAs ap2: 15.4 cm2 LVLs ap2: 6.5 cm ESV(MOD-sp2): 30.0 ml ESV(sp2-el): 30.9 ml EF(MOD-sp2): 57.5 % SV(sp4-el): 39.5 ml LA dimension(2D): 3.8 cm LA A4 area: 21.3 cm2 RA A4 area: 15.5 cm2 Time Measurements MV dec time: 0.29 sec Doppler Measurements Calculations MV E max jorge: 71.9 cm/sec Lat Peak E' Jorge: 11.4 cm/sec Med Peak E' Jorge: 9.0 cm/sec MV A max jorge: 93.7 cm/sec E/E' lat: 6.3 E/E' med: 8.0 MV E/A: 0.77 Ao V2 max: 133.0 cm/sec TR max jorge: 244.0 cm/sec MV dec slope: 245.2 cm/sec2 Ao max P.1 mmHg TR max P.8 mmHg Ao V2 mean: 91.3 cm/sec Ao mean P.9 mmHg Ao V2 VTI: 28.9 cm ECHO/Echo, Limited Study Interpretation Summary The left ventricular ejection fraction is 45 %. Normal LV size. Pulmonary artery systolic pressure is 26 mmHg. Stage 1 diastolic dysfunction. __ Ordering Physician: Liliya Ballard Referring Physician: Abran Yanes M.D. Performed By: Therese Gilliam RDCS and Student 04/27/24 9679 Date Dash Prabhakar MD CC: Dr. Liliya Ballard MD; Dr. Abran Yanes MD; Dr. Beatris Atkins MD Date Dictated: 04/27/24 1507 Date Transcribed: 04/27/24 6791 Bottom Finisher: Signed Normal [facility] Emergency Department Summary on 04-26-2024 Emergency Department Summary [facility] Medical Records Department [address] [place] [address] Emergency Department Summary 04/26/24 MR#: [id number] Acct: [id number] Name: ROMERO GRAY Rep #: [id number] : 1950 74 From: Trisha Dillon DO PCP: Dr. Abran Yanes MD Status:ADM IN Location: [address] History of Present Illness Chief Complaint: Chest Pain Informant: patient Narrative Narrative: Patient is a 74-year-old female with history of hypothyroidism, TIA, GERD, C. difficile colitis, thyroid disease and heart attack (states her cath was normal and they told her it was vasospasm) presenting with chest pain. Patient states about 30 minutes ago she had sudden onset of pain in the center of her chest. She states it feels that there is an elephant sitting on her chest. It feels like her prior heart attack. She notes she had 81 mg of aspirin around 230 or 3 PM today. When this episode started she became diaphoretic paretic and nauseous and gag but did not throw up. She denies any radiation of pain to her back. Denies any pain in her shoulders or jaw. Denies eating anything right before this episode. States she was in normal state of health this morning and actually [place] with the symptoms started. Outpatient cardiology visit note from 01/07/2024 reviewed. She has a history of NSTEMI July 2017 with cath that showed an EF of 60% with some anterior hypokinesis. Left anterior descending had mild luminal irregularities less than 30% of the circumflex and right coronaries were angiographically normal. Thought to be stress related that she had had some personal issues and significant family issues at the time of this episode. Has well-controlled hypertension. Prior Similar Symptoms: With Prior Angina PFSH PFSH Medical History Recurrent Clostridioides difficile diarrhea Hammer toe TIA (transient ischemic attack) Psoriasis Thyroid disease GERD (gastroesophageal reflux disease) Osteopenia Neuropathy Carpal tunnel syndrome Arthritis Atherosclerosis of coronary artery of resighini heart without angina pectoris Non-STEMI (non-ST elevated myocardial infarction) ( 07/2017) Hypertension Hyperlipidemia Home Medications ???Medication ???Instructions ???Recorded ???Last Taken ???Type aspirin 81 mg chewable tablet 81 mg PO DAILY@0800 ##90 07/26/17 01/12/24 Rx cholecalciferol (vitamin D3) 125 125 mcg PO DAILY 07/04/21 01/12/24 History mcg (5,000 unit) tablet atorvastatin 20 mg tablet 20 mg PO QHS #90 tabs 05/13/23 01/11/24 Rx levothyroxine 75 mcg tablet 75 mcg PO DAILY #90 tabs 09/11/23 01/12/24 Rx lisinopril 20 0.5 tab PO DAILY #90 tabs 11/28/23 01/12/24 Rx mg-hydrochlorothiaz hoa 12.5 mg tablet trazodone 50 mg tablet 75 mg PO QHS PRN insomnia 01/07/24 01/11/24 History alendronate 35 mg tablet 35 mg PO MO 01/12/24 01/06/24 History estradiol 0.01% (0.1 mg/gram) 1 g vaginal .COMPLEX 01/12/24 Unknown History vaginal cream famotidine 20 mg tablet (Acid 20 mg PO DAILY PRN heartburn 01/12/24 Unknown History Controller) psyllium husk 0.52 gram capsule 0.52 g PO DAILY 01/12/24 Unknown History (Daily Fiber) vitamin B complex (Complex B-100 1 tab PO DAILY 01/12/24 01/12/24 History tablet,extended release) vancomycin 125 mg capsule 125 mg PO DIRECTED #60 caps 03/26/24 Unknown Rx metoprolol tartrate 25 mg tablet 12.5 mg (1/2 x 25 mg) PO BID #90 03/31/24 Unknown Rx tabs Allergy/AdvReac Type Severity Reaction Status Date / Time Sulfa (Sulfonamide Allergy Rash Verified 04/26/24 18:51 Antibiotics) Family History Brother Alcoholism Myocardial infarction Kidney disease Multiple myeloma Mother Arthritis Blood clot in vein Father Cancer Renal Skin Kidney disease Surgical History History of left knee replacement History of colonoscopy (07/02/17) History of tubal ligation History of tonsillectomy and adenoidectomy History of hysterectomy History of carpal tunnel surgery of right wrist History of bladder suspension procedure History of foot surgery Social History household members: spouse Smoking Status: Never smoker second hand exposure: No alcohol intake: current alcohol intake frequency: a few times a week Alcohol type: wine substance use type: does not use caffeine: Yes frequency: 3-4 times per week ROS ROS ED Constitutional Constitutional ED: Reports sweats; Denies chills or fever(s) Eyes Eyes: Denies change in vision ENT ENT ED: Denies sore throat Cardiovascular Cardiovascular: Reports as per HPI and chest pain; Denies palpitations Respiratory/Chest Respirat (more content not included)... Normal [facility] H AND P Exam - Hospitaliston 04-26-2024 H&P Exam - Hospitalist [facility] Medical Records Department [address] [place] [address] H P Exam - Hospitalist 04/26/242120 MR#: [id number] Acct: [id number] Name: ROMERO GRAY Rep #: [id number] : 1950 74 From: Liliya Ballard MD PCP: Dr. Abran Yanes MD Status:REG ER Location: ED HPI - General General Date of Admission: 04/26/24 Date of Service: 04/26/24 Chief Complaint: Chest pain, Nausea, Diaphoresis, LH/Dizziness. 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 difficile colitis, Hx NSTEMI w/ normal appearing cardiac catheterization felt secondary to vasospasms who presents to the [facility] ED on 04/26/24 with chest discomfort starting approximately 30 minutes prior to ED arrival noted to be midsternal described as an elephant sitting on her chest with associated diaphoresis, nausea and dry heaving but no actual emesis with oral intake just prior to this onset with radiation of discomfort into her bilateral throat but not up into the jaw with also lightheadedness/diz ziness starting initially after she got out of the car to walk towards the fair and continuing rated 10 out of 10 in severity when it occurred and prior to this in her normal state of health but given ongoing prompted ED evaluation. In the ED she notes complete resolution of chest discomfort following ED administration of medications. She notes that she took 81 mg of aspirin at approximately 2:30 PM on day of presentation. Most recent cardiology visit with Dr. Manzo 01/07/24 will continue medical management that time with description of NSTEMI 07/2017 with cardiac catheterization with EF 60%, anterior hypokinesis, LAD with mild luminal irregularities, less than 30% circumflex narrowed and right coronary arteries were noted to be angiographically normal with significant life stress events around that event of note. She notes she is taking her medication including her aspirin therapy. Workup in the ED included T97.2 Temporally, heart rate 58, BP 131/79, respiratory rate 16, 97% room air, CBC with WBC 10.3, hemoglobin 14.4, platelet 246 without marked shift, BMP with sodium 134, BUN/creatinine 29/1.22, GFR 46, glucose 119, troponin initial 567, chest x-ray with no acute cardiopulmonary findings, EKG with sinus bradycardia with very subtle change in T wave in V2 nonspecific with repeat resolution and similar to previous EKGs. In the ED patient administered aspirin 162 mg p.o. x 1, sublingual nitroglycerin and initiated on heparin drip. ED discussed case with Dr. Prabhakar Cardiology. [facility] Medical History Recurrent Clostridioides difficile diarrhea Hammer toe TIA (transient ischemic attack) Psoriasis Thyroid disease GERD (gastroesophageal reflux disease) Osteopenia Neuropathy Carpal tunnel syndrome Arthritis Atherosclerosis of coronary artery of resighini heart without angina pectoris Non-STEMI (non-ST elevated myocardial infarction) ( 07/2017) Hypertension Hyperlipidemia Home Medications ???Medication ???Instructions ???Recorded ???Last Taken ???Type aspirin 81 mg chewable tablet 81 mg PO DAILY@0800 ##90 07/26/17 01/12/24 Rx cholecalciferol (vitamin D3) 125 125 mcg PO DAILY 07/04/21 01/12/24 History mcg (5,000 unit) tablet atorvastatin 20 mg tablet 20 mg PO QHS #90 tabs 05/13/23 01/11/24 Rx levothyroxine 75 mcg tablet 75 mcg PO DAILY #90 tabs 09/11/23 01/12/24 Rx lisinopril 20 0.5 tab PO DAILY #90 tabs 11/28/23 01/12/24 Rx mg-hydrochlorothiaz hoa 12.5 mg tablet trazodone 50 mg tablet 75 mg PO QHS PRN insomnia 01/07/24 01/11/24 History alendronate 35 mg tablet 35 mg PO MO 01/12/24 01/06/24 History estradiol 0.01% (0.1 mg/gram) 1 g vaginal .COMPLEX 01/12/24 Unknown History vaginal cream famotidine 20 mg tablet (Acid 20 mg PO DAILY PRN heartburn 01/12/24 Unknown History Controller) psyllium husk 0.52 gram capsule 0.52 g PO DAILY 01/12/24 Unknown History (Daily Fiber) vitamin B complex (Complex B-100 1 tab PO DAILY 01/12/24 01/12/24 History tablet,extended release) vancomycin 125 mg capsule 125 mg PO DIRECTED #60 caps 03/26/24 Unknown Rx metoprolol tartrate 25 mg tablet 12.5 mg (1/2 x 25 mg) PO BID #90 03/31/24 Unknown Rx tabs Allergy/AdvReac Type Severity Reaction Status Date / Time Sulfa (Sulfonamide Allergy Rash Verified 04/26/24 18:51 Antibiotics) Family History Brother Alcoholism Myocardial infarction Kidney disease Multiple myeloma Mother Arthritis Blood clot in vein Father Cancer Renal Skin Kidney disease Surgical History H (more content not included)... Normal [facility] L501.4020on 04-26-2024 TROPONIN-I HS 1843 pg/mL Invalid Interpretation Code 3.0-54.0 [facility] Comment on above: Order Comment: Comme nts: may add to ED labs Result Comment: Crit ical Result(s) Called at: 21:52:19 04/26/2024 by: GINNA CARRILLO TO VITA GUZMAN. Results read back by same. Please Note: New Test Units and Gender Specific Reference Ranges. For more information see Policy Stat Procedure Raymond High Sensitivity Troponin (TNIH) and attachments. Performed By: #### L 501.4020, L501.5200 ####[facility] [address] [place], [address] L501.5425on 04-26-2024 TROPONIN-I HS 567 pg/mL Invalid Interpretation Code 3.0-54.0 [facility] Comment on above: Order Comment: 1Y Result Comment: Crit ical Result(s) Called at: 19:58:00 04/26/2024 by: GINNA CARRILLO TO THOMAS JAIN . Results read back by same. Please Note: New Test Units and Gender Specific Reference Ranges. For more information see Policy Stat Procedure Raymond High Sensitivity Troponin (TNIH) and attachments. Performed By: #### L 100.0100, L500.2500, L501.5425 ####[facility] [address] [place], [address] Magnesiumon 04-26-2024 Magnesium [Mass/Vol] 1.8 mg/dL Normal 1.6-2.6 [facility] Comment on above: Order Comment: Comme nts: may add to ED labs Performed By: #### L 501.4020, L501.5200 ####[facility] [address] [place], [address] Partial Thromboplast Timeon 04-26-2024 aPTT Coag (Bld) [Time] 27.4 s Normal 24.1-36.2 [facility] Comment on above: Performed By: #### L 300.4310, L300.3900 ####[facility] [address] [place], [address] Prothrombin Time w/INRon INR Coag (PPP) [Relative time] 1.1 {INR} Normal [facility] Comment on above: Performed By: #### L 300.4310, L300.3900 ####[facility] [address] [place], [address] PT Coag (PPP) [Time] 13.7 s Normal 11.7-14.9 [facility] Comment on above: Performed By: #### L 300.4310, L300.3900 ####[facility] [address] [place], [address] Basophil percentageOrdered B y: Francisco Ellis on 07-23-2023 Basophil percentage 10-25 SEEN /hpf 0-5 [facility] Bilirubin Test strip Ql (U)O rdered By: Francisco Ellis on 07-23-2023 Bilirubin Ql (U) Negative Negative [facility] Culture, urineOrdered By: St yeimi Ellis on 07-23-2023 Bacteria identified Cx Nom (U) Enterococcus faecalis [facility] Ketones Test strip Ql (U)Ord ered By: Francisco Ellis on 07-23-2023 Ketones Ql (U) Negative Negative [facility] Mucus LM Ql (Urine sed)Order ed By: Francisco Ellis on 07-23-2023 Mucus Ql (Urine sed) 0 SEEN /hpf [facility] Nitrite Test strip Ql (U)Ord ered By: Francisco Ellis on 07-23-2023 Nitrite Ql (U) Negative Negative [facility] Protein Test strip Ql (U)Ord ered By: Francisco Ellis on 07-23-2023 Protein Ql (U) 15 mg/dl Negative [facility] Squamous epithelial cells de tection in urine sediment by light microscopyOrdered By: Francisco Ellis on 07-23-2023 Epithelial cells.squamous LM Ql (Urine sed) 0-5 SEEN /hpf 5-10 [facility] Urine blood detectionOrdered By: Francisco Ellis on 07-23-2023 RBC Ql (U) 250 /ul Negative [facility] RBC Ql (U) 25-50 SEEN /hpf 0-5 [facility] Urine clarityOrdered By: Nicko Ellis on 07-23-2023 Clarity (U) Clear Clear [facility] Urine color determinationOrd ered By: Francisco Ellis on 07-23-2023 Color (U) Yellow Yellow [facility] Urine glucose detectionOrder ed By: Francisco Ellis on 07-23-2023 Glucose Ql (U) Normal mg/dl Normal [facility] Urine leukocyte esterase det ection by dipstickOrdered By: Francisco Ellis on 07-23-2023 Leukocyte esterase Test strip Ql (U) 100 /ul Negative [facility] Urine pHOrdered By: Francisco santoro on 07-23-2023 pH (U) 7.0 [pH] 5.0 - 8.0 [facility] Urine sediment bacteria coun t by microscopy (number/high power field)Ordered By: Francisco Ellis on 07-23-2023 Bacteria LM.HPF (Urine sed) [#/Area] 0 /[HPF] None Seen [facility] Urine specific gravity measu rementOrdered By: Francisco Ellis on 07-23-2023 Specific gravity (U) [Rel density] 1.010 1.002-1.030 [facility] Urobilinogen Auto test strip Ql (U)Ordered By: Francisco Ellis on 07-23-2023 Urobilinogen Ql (U) Normal mg/dl Normal [facility] Absolute lymphocyte countOrd ered By: Abran Yanes on 05-21-2023 Lymphocytes Auto (Unsp spec) [#/Vol] 3.28 10*3/uL 0.83-4.51 [facility] Basophil percentageOrdered B y: Abran Yanes on 05-21-2023 Basophils/100 WBC (Bld) 0.9 % 0-1 [facility] Bilirubin [Mass/Vol] 1.10 mg/dL 0.20-1.00 [facility] Comment on above: For patients on eltr ombopag therapy, use of Dimension Raymond TBIL is not recommended. Chloride [Moles/Vol] 107 mmol/L 98-107 [facility] Cholesterol [Mass/Vol] 169 mg/dL <200 [facility] Comment on above: <200 mg/dL Desirable 200-240 mg/dL Borderline >240 mg/dL High Risk Eosinophils/100 WBC (Bld) 3.1 % 0-5 [facility] Glucose [Mass/Vol] 131 mg/dL 74-106 [facility] Comment on above: Fasting Glucose resu lt greater than or equal to 126 mg/dL suggests DIABETES MELLITUS per A.D.A. criteria. Neutrophils (Bld) [#/Vol] 2.7 10*3/uL 2.0-7.7 [facility] Neutrophils/100 WBC (Bld) 37.6 % 47-70 [facility] Potassium [Moles/Vol] 4.1 mmol/L 3.5-5.1 [facility] Protein [Mass/Vol] 7.4 g/dL 6.4-8.2 [facility] Sodium [Moles/Vol] 139 mmol/L 136-145 [facility] Triglyceride [Mass/Vol] 162 mg/dL <199 [facility] Comment on above: The drugs N-Acetylcy steine and Metamizole may falsely depress this assay.Serum Triglycerides Reference Interval Normal <150 mg/dL Borderline high 150 - 199 mg/dL High 200 - 499 mg/dL Very High > or = 500 mg/dL WBC (Bld) [#/Vol] 7.1 10*3/uL 4.4-11.0 [facility] Blood erythrocytes count (nu mber/volume)Ordered By: Abran Yanes on 05-21-2023 RBC (Bld) [#/Vol] 4.73 10*6/uL 4.2-5.4 [facility] Blood hemoglobin measurement (mass/volume)Ordered By: Abran Yanes on 05-21-2023 Hemoglobin (Bld) [Mass/Vol] 15.3 g/dL 12.0-15.0 [facility] Blood lymphocytes/100 leukoc ytesOrdered By: Abran Yanes on 05-21-2023 Lymphocytes/100 WBC (Bld) 46.5 % 19-41 [facility] Blood monocytes/100 leukocyt esOrdered By: Abran Yanes on 05-21-2023 Monocytes/100 WBC (Bld) 11.8 % 0-10 [facility] Blood platelet mean volumeOr dered By: Abran Yanes on 05-21-2023 Platelet mean volume (Bld) [Entitic vol] 9.5 fL 6.2-12.0 [facility] Determination of erythrocyte mean corpuscular volume (MCV)Ordered By: Abran Yanes on 05-21-2023 MCV (RBC) [Entitic vol] 96.6 fL 81-99 [facility] Hematocrit Auto (Bld) [Volum e fraction]Ordered By: Abran Yanes on 05-21-2023 Hematocrit (Bld) [Volume fraction] 45.7 % 37-47 [facility] Laboratory - Chemistry and C hemistry - challengeOrdered By: Abranleigh Yanes on 05-21-2023 ALP [Catalytic activity/Vol] 54 U/L 45-117 [facility] ALT [Catalytic activity/Vol] 35 U/L 13-56 [facility] CO2 [Moles/Vol] 28.0 mmol/L 21.0-32.0 [facility] Free T4 [Mass/Vol] 1.08 ng/dL 0.76-1.46 [facility] Globulin (S) [Mass/Vol] 3.6 g/dL 2.2-4.2 [facility] Magnesium [Mass/Vol] 2.2 mg/dL 1.6-2.6 [facility] Urea nitrogen/Creatinine [Mass ratio] 15.4 mg/mg 10-20 [facility] Laboratory - Hematology and Cell countsOrdered By: Abran Yanes on 05-21-2023 Erythrocyte distribution width (RBC) [Entitic vol] 48.8 fL 35.1-43.9 [facility] Erythrocyte distribution width (RBC) [Ratio] 13.6 % 11.6-14.6 [facility] Immature granulocytes/100 WBC (Bld) 0.100 % 0.0-0.9 [facility] Comment on above: IG% - Immature Granu locytes (promyelocytes, myelocytes and metamyelocytes) > 1% indicates that a LEFT SHIFT is Present. MCH (RBC) [Entitic mass] 32.3 pg 27.0-32.0 [facility] Nucleated RBC/100 WBC (Bld) [Ratio] 0 % 0-5 [facility] MCHC Auto (RBC) [Mass/Vol]Or dered By: Abran Yanes on 05-21-2023 MCHC (RBC) [Mass/Vol] 33.5 g/dL 32-36 [facility] No Panel InformationOrdered By: Abran Yanes on 05-21-2023 Estimated GFR (MDRD) Amer 72 mL/min >60 [facility] Comment on above: GFR Calc Estimated GFR (MDRD) Non-Af Amer 60 mL/min >60 [facility] Comment on above: Non- GFR Calc Free Triiodothyronine (T3) pg/dL 2.3 pg/mL 2.18-3.98 [facility] Thyroid Stimulating Hormone (TSH) 3.16 uIU/mL 0.358-3.74 [facility] Vitamin D 25-Hydroxy 56.6 ng/mL [facility] Comment on above: Vitamin D 25(OH) Sta tus Range Deficiency <20 ng/mL (50nmol/L) Insufficiency 20 - 30 ng/mL (50 - 75 nmol/L) Sufficiency 30 - 100 ng/mL (75 - 250 nmol/L) Toxicity >100 ng/mL (>250 nmol/L) Platelets bldOrdered By: Jesi Yanes on 05-21-2023 Platelets (Bld) [#/Vol] 235 10*3/uL 150-450 [facility] Serum or plasma albumin kassidy urement (mass/volume)Ordered By: Abran Yanes on 05-21-2023 Albumin [Mass/Vol] 3.8 g/dL 3.2-5.0 [facility] Serum or plasma albumin/glob ulin mass ratioOrdered By: Abran aYnes on 05-21-2023 Albumin/Globulin [Mass ratio] 1.1 {ratio} 0.9-2.4 [facility] Serum or plasma calcium kassidy urement (mass/volume)Ordered By: Abran Yanes on 05-21-2023 Calcium [Mass/Vol] 9.8 mg/dL 8.5-10.1 [facility] Serum or plasma cholesterol in HDL measurement (mass/volume)Ordered By: Abran Yanes on 05-21-2023 Cholesterol in HDL [Mass/Vol] 52 mg/dL >40 [facility] Comment on above: The drugs N-Acetylcy steine and Metamizole may falsely depress this assay. Reference Range HDL <40 mg/dL Low HDL Cholesterol HDL >or= 60 mg/dL High HDL Cholesterol Serum or plasma cholesterol in VLDL measurement (mass/volume)Ordered By: Abran Yanes on 05-21-2023 Cholesterol in VLDL [Mass/Vol] 32 mg/dL 5-40 [facility] Serum or plasma creatinine m easurement (mass/volume)Ordered By: Abran Yanes on 05-21-2023 Creatinine [Mass/Vol] 0.97 mg/dL 0.55-1.02 [facility] Comment on above: The validity of the calculated GFR & GFRAA in patients over 70 years has not been determined. Clinical correlation is essential. Serum or plasma low density lipoprotein (LDL) cholesterol measurement (mass/volume)Ordered By: Abran Yanes on 05-21-2023 Cholesterol in LDL [Mass/Vol] 85 mg/dL 0-130 [facility] Serum or plasma urea nitroge n measurement (mass/volume)Ordered By: Abran Yanes on 05-21-2023 Urea nitrogen [Mass/Vol] 15 mg/dL 7-18 [facility] Thin prep Papanicolaou smear with manual screeningOrdered By: Abran Yanes on 05-21-2023 Thin prep Papanicolaou smear with manual screening 32 U/L 15-37 [facility] Thin prep Papanicolaou smear with manual screening 4 5-15 [facility] Whole blood hemoglobin A1c/t otal hemoglobin ratio (mass fraction)Ordered By: Abran Yanes on 05-21-2023 HbA1c (Bld) [Mass fraction] 5.5 % 3.8-5.6 [facility] Comment on above: Normal < 5.7 % Predi abetic 5.7 - 6.4 % Diabetic >or= 6.5 % Please note range changes. Absolute lymphocyte counton 05-07-2022 Lymphocytes Auto (Unsp spec) [#/Vol] 2.38 10*3/uL 0.83-4.51 [facility] Work Phone: Basophil percentageon 2021 Basophils/100 WBC (Bld) 0.7 % 0-1 [facility] Work Phone: Bilirubin [Mass/Vol] 0.70 mg/dL 0.20-1.00 [facility] Work Phone: Comment on above: For patients on eltr ombopag therapy, use of Dimension Raymond TBIL is not recommended. Chloride [Moles/Vol] 105 mmol/L 98-107 [facility] Work Phone: Eosinophils/100 WBC (Bld) 6.1 % 0-5 [facility] Work Phone: Glucose [Mass/Vol] 114 mg/dL 74-106 [facility] Work Phone: Comment on above: Fasting Glucose resu lt from 100 to 125 mg/dL suggests IMPAIRED HOMEOSTASIS per A.D.A. criteria. Neutrophils (Bld) [#/Vol] 3.4 10*3/uL 2.0-7.7 [facility] Work Phone: Neutrophils/100 WBC (Bld) 49.0 % 47-70 [facility] Work Phone: Potassium [Moles/Vol] 4.2 mmol/L 3.5-5.1 [facility] Work Phone: Protein [Mass/Vol] 7.6 g/dL 6.4-8.2 [facility] Work Phone: Sodium [Moles/Vol] 140 mmol/L 136-145 [facility] Work Phone: WBC (Bld) [#/Vol] 6.9 10*3/uL 4.4-11.0 [facility] Work Phone: Blood erythrocytes count (nu mber/volume)on 05-07-2022 RBC (Bld) [#/Vol] 4.72 10*6/uL 4.2-5.4 [facility] Work Phone: Blood hemoglobin measurement (mass/volume)on 05-07-2022 Hemoglobin (Bld) [Mass/Vol] 14.8 g/dL 12.0-15.0 [facility] Work Phone: Blood lymphocytes/100 leukoc yteson 05-07-2022 Lymphocytes/100 WBC (Bld) 34.4 % 19-41 [facility] Work Phone: Blood monocytes/100 leukocyt eson 05-07-2022 Monocytes/100 WBC (Bld) 9.7 % 0-10 [facility] Work Phone: Blood platelet mean volumeon 05-07-2022 Platelet mean volume (Bld) [Entitic vol] 9.7 fL 6.2-12.0 [facility] Work Phone: Determination of erythrocyte mean corpuscular volume (MCV)on 05-07-2022 MCV (RBC) [Entitic vol] 94.5 fL 81-99 [facility] Work Phone: Hematocrit Auto (Bld) [Volum e fraction]on 05-07-2022 Hematocrit (Bld) [Volume fraction] 44.6 % 37-47 [facility] Work Phone: Laboratory - Chemistry and C hemistry - challengeon 05-07-2022 ALP [Catalytic activity/Vol] 55 U/L 45-117 [facility] Work Phone: ALT [Catalytic activity/Vol] 31 U/L 13-56 [facility] Work Phone: CO2 [Moles/Vol] 29.0 mmol/L 21.0-32.0 [facility] Work Phone: Free T4 [Mass/Vol] 1.16 ng/dL 0.76-1.46 [facility] Work Phone: Globulin (S) [Mass/Vol] 3.9 g/dL 2.2-4.2 [facility] Work Phone: Urea nitrogen/Creatinine [Mass ratio] 19.6 mg/mg 10-20 [facility] Work Phone: Laboratory - Hematology and Cell countson 05-07-2022 Erythrocyte distribution width (RBC) [Entitic vol] 46.6 fL 35.1-43.9 [facility] Work Phone: Erythrocyte distribution width (RBC) [Ratio] 13.4 % 11.6-14.6 [facility] Work Phone: Immature granulocytes/100 WBC (Bld) 0.100 % 0.0-0.9 [facility] Work Phone: Comment on above: IG% - Immature Granu locytes (promyelocytes, myelocytes and metamyelocytes) > 1% indicates that a LEFT SHIFT is Present. MCH (RBC) [Entitic mass] 31.4 pg 27.0-32.0 [facility] Work Phone: Nucleated RBC/100 WBC (Bld) [Ratio] 0 % 0-5 [facility] Work Phone: MCHC Auto (RBC) [Mass/Vol]on 05-07-2022 MCHC (RBC) [Mass/Vol] 33.2 g/dL 32-36 [facility] Work Phone: No Panel Informationon 05-07 Estimated GFR (MDRD) Amer 73 mL/min >60 [facility] Work Phone: Comment on above: GFR Calc Estimated GFR (MDRD) Non-Af Amer 60 mL/min >60 [facility] Work Phone: Comment on above: Non- GFR Calc Free Triiodothyronine (T3) pg/dL 2.6 pg/mL 2.18-3.98 [facility] Work Phone: Thyroid Stimulating Hormone (TSH) 1.67 uIU/mL 0.358-3.74 [facility] Work Phone: Vitamin D 25-Hydroxy 45.7 ng/mL [facility] Work Phone: Comment on above: Vitamin D 25(OH) Sta tus Range Deficiency <20 ng/mL (50nmol/L) Insufficiency 20 - 30 ng/mL (50 - 75 nmol/L) Sufficiency 30 - 100 ng/mL (75 - 250 nmol/L) Toxicity >100 ng/mL (>250 nmol/L) Platelets bldon 05-07-2022 Platelets (Bld) [#/Vol] 240 10*3/uL 150-450 [facility] Work Phone: Serum or plasma albumin kassidy urement (mass/volume)on 05-07-2022 Albumin [Mass/Vol] 3.7 g/dL 3.2-5.0 [facility] Work Phone: Serum or plasma albumin/glob ulin mass ratioon 05-07-2022 Albumin/Globulin [Mass ratio] 0.9 {ratio} 0.9-2.4 [facility] Work Phone: Serum or plasma calcium kassidy urement (mass/volume)on 05-07-2022 Calcium [Mass/Vol] 9.6 mg/dL 8.5-10.1 [facility] Work Phone: Serum or plasma creatinine m easurement (mass/volume)on 05-07-2022 Creatinine [Mass/Vol] 0.97 mg/dL 0.55-1.02 [facility] Work Phone: Comment on above: The validity of the calculated GFR & GFRAA in patients over 70 years has not been determined. Clinical correlation is essential. Serum or plasma urea nitroge n measurement (mass/volume)on 05-07-2022 Urea nitrogen [Mass/Vol] 19 mg/dL 7-18 [facility] Work Phone: Thin prep Papanicolaou smear with manual screeningon 05-07-2022 Thin prep Papanicolaou smear with manual screening 26 U/L 15-37 [facility] Work Phone: Thin prep Papanicolaou smear with manual screening 6 5-15 [facility] Work Phone: Whole blood hemoglobin A1c/t otal hemoglobin ratio (mass fraction)on 05-07-2022 HbA1c (Bld) [Mass fraction] 6.1 % 3.8-5.6 [facility] Work Phone: Comment on above: Normal < 5.7 % Predi abetic 5.7 - 6.4 % Diabetic >or= 6.5 % Please note range changes. Final Surgical Pathology Rep florinda 09-13-2021 Final Surgical Pathology Report . Pathology Reports Accession: Collected Date/Time: Received Date/Time: Pathologist: [id number] 09/11/2021 14:50 EST 09/11/2021 14:50 EST DO KATELYNN LIN Final Surgical Pathology Report DIAGNOSIS: PORTIONS OF BONE WITH CHANGES OF DEGENERATIVE OSTEOARTHRITIS, CLINICALLY LEFT KNEE. COMMENT: Rosalba [id number] CLINICAL INFORMATION: LEFT KNEE OSTEOARTHRITIS SPECIMEN: A LEFT KNEE BONE GROSS DESCRIPTION: A. Received in formalin, labeled with the patients name, Case #[id number], and left knee bone Description/dimensi ons-multiple convex and concave fragmented portions of warner-yellow bone/soft tissue aggregating 8 x 8 x 3.5 cm, articular surfaces are focally eburnated, cartilage is focally nodular, underlying bone is yellow/dense to trabecular RS-1 following decalcification Dictated by DAMON MEAD MICROSCOPIC DESCRIPTION: Slides reviewed. Electronically Signed by Pathology Report verified by [facility] Electronically signed by KATELYNN LIN DO Sign out Date: 09/13/2021 12:22 Performing Lab: [facility], [address] [place] [address] Normal [facility] ([place]) BMP with eGFRon 09-12-2021 AGE 71 years Normal [facility] Comment on above: Performed By: #### 2 [id number] #### [facility],[address] [place] [address] Anion gap [Moles/Vol] 13 mmol/L Normal 10 - 20 [facility] Comment on above: Performed By: #### 2 70629 #### [place] [address] BMP with eGFR Normal [facility] Comment on above: Result Comment: BASI C METABOLIC PANEL Performed By: #### 2 85165 #### [facility],[address],[place] [address] Calcium [Mass/Vol] 8.0 mg/dL Low 8.5 - 10.1 [facility] Comment on above: Performed By: #### 2 26433 #### [facility],[address] [place] [address]205 Chloride [Moles/Vol] 104 mmol/L Normal 98 - 107 [facility] Comment on above: Performed By: #### 2 81395 #### [facility],[address] [place], [place] [id number] CO2 [Moles/Vol] 22.2 mmol/L Normal 21.0 - 32.0 [facility] Comment on above: Performed By: #### 2 21124 #### [facility],[address] [place] [address] Creatinine [Mass/Vol] 0.89 mg/dL Normal 0.55 - 1.02 [facility] Comment on above: Performed By: #### 2 34137 #### [facility],[address] [place], [place] [id number] GFR/1.73 sq M.predicted among non-blacks MDRD (S/P/Bld) [Vol rate/Area] mL/min/{1.73_m2} Normal 60 - 999 [facility] Comment on above: Performed By: #### 2 36422 #### [facility],[address] [place], [place] [id number] Result Comment: ACCO RDING TO THE NATIONAL KIDNEY DISEASE EDUCATION PROGRAM(NKDE), A NORMAL eGFR IS A VALUE GREATER THAN OR EQUAL TO 60 ML/MIN/1.73 SQ METERS. CHRONIC KIDNEY DISEASE: <60mL/MIN/1.73 SQ METERS KIDNEY FAILURE: <15mL/MIN/1.73 SQ METERS THIS TEST SHOULD ONLY BE USED FOR PATIENTS 18 YEARS OF AGE AND OLDER. Glucose [Mass/Vol] 135 mg/dL High 74 - 106 [facility] Comment on above: Performed By: #### 2 39922 #### [facility],[address],[place] [address] Potassium [Moles/Vol] 4.3 mmol/L Normal 3.5 - 5.1 [facility] Comment on above: Performed By: #### 2 98761 #### [facility],[address] [place] [address] Sodium [Moles/Vol] 135 mmol/L Low 136 - 145 [facility] Comment on above: Performed By: #### 2 43643 #### [facility],[address] [place] [address] 11647 Urea nitrogen [Mass/Vol] 15 mg/dL Normal 7 - 18 [facility] Comment on above: Performed By: #### 2 91552 #### [facility],[address] [place] [address] 14422 CBC + DIFFon 09-12-2021 Baso # 0.00 x10EE3/UL Normal 0.00 - 0.10 [facility] Comment on above: Performed By: #### 2 32705 #### [facility],[address] [place] [address] 28548 Basophils/100 WBC (Bld) 0.2 % Normal 0.0 - 2.0 [facility] Comment on above: Performed By: #### 2 30214 #### [facility],[address] [place] [address] 38263 CBC + DIFF Normal [facility] Comment on above: Result Comment: CBC- COMPLETE BLOOD COUNT Performed By: #### 2 19766 #### [facility],[address] [place] [address] 87368 EO # 0.00 x10EE3/UL Normal 0.00 - 0.50 [facility] Comment on above: Performed By: #### 2 70662 #### [facility],[address] [place] [address] 39411 Eosinophils/100 WBC (Bld) 0.0 % Normal 0.0 - 7.0 [facility] Comment on above: Performed By: #### 2 02044 #### [facility],[address] [place] [address] 27367 Erythrocyte distribution width (RBC) [Ratio] 13.3 % Normal 12.0 - 15.6 [facility] Comment on above: Performed By: #### 2 96428 #### [facility],[address] [place] [address] Hematocrit (Bld) [Volume fraction] 36.4 % Normal 34.0 - 46.0 [facility] Comment on above: Performed By: #### 2 50155 #### [facility],[address] [place] [address] Hemoglobin (Bld) [Mass/Vol] 12.6 g/dL Normal 12.0 - 16.0 [facility] Comment on above: Performed By: #### 2 84756 #### [facility],[address] [place] [address] Lymph # 1.00 x10EE3/UL Normal 0.80 - 2.80 [facility] Comment on above: Performed By: #### 2 63439 #### [facility],[address] [place], [place] [address] Lymphocytes/100 WBC (Bld) 8.1 % Low 20.0 - 45.0 [facility] Comment on above: Performed By: #### 2 30523 #### [facility],[address] [place], [place] [address] MANUAL DIFF N/A Normal [facility] Comment on above: Performed By: #### 2 23094 #### [facility],[address] [place] [address] 62931 MCH (RBC) [Entitic mass] 32 pg Normal 27 - 33 [facility] Comment on above: Performed By: #### 2 92314 #### [facility],[address] [place] [address] 65047 MCHC 35 X10 3 Normal 32 - 36 [facility] Comment on above: Performed By: #### 2 92342 #### [facility],[address] [place] [address] 39565 MCV (RBC) [Entitic vol] 91 fL Normal 80 - 99 [facility] Comment on above: Performed By: #### 2 32346 #### [facility],[address] [place] [address] 60013 [place] # 0.70 x10EE3/UL Normal 0.20 - 1.00 [facility] Comment on above: Performed By: #### 2 47320 #### [facility],[address] [place] [address] 44279 MONOS % 6.0 % Normal 0.0 - 10.0 [facility] Comment on above: Performed By: #### 2 19166 #### [facility],[address] [place] [address] 15570 Morphology Wade (Bld) [Interp] N/A Normal [facility] Comment on above: Result Comment: {CD] Performed By: #### 2 16795 #### [facility],[address] [place] [address] 90806 Neut # 10.40 x10EE3/UL High 1.50 - 7.10 [facility] Comment on above: Performed By: #### 2 41338 #### [facility],[address] [place] [address] 58284 Neutrophils/100 WBC (Bld) 85.7 % High 46.0 - 76.0 [facility] Comment on above: Performed By: #### 2 25832 #### [facility],[address] [place] [address] 62336 PLATELET 193 x10EE3/UL Normal 150 - 450 [facility] Comment on above: Performed By: #### 2 54522 #### [facility],[address] [place] [address] 93623 Platelet mean volume (Bld) [Entitic vol] 7.7 fL Normal 6.6 - 10.5 [facility] Comment on above: Result Comment: AUTO MATED DIFFERENTIAL Performed By: #### 2 48500 #### [facility],[address] [place] [address] 05923 RBC 3.99 x 10EE6/UL Low 4.10 - 5.30 [facility] Comment on above: Performed By: #### 2 38552 #### [facility],[address] [place] [address] 72280 WBC 12.1 x 10EE3/UL High 4.5 - 10.8 [facility] Comment on above: Performed By: #### 2 23073 #### [facility],[address] [place] [address] 47841 KNEE 2 VIEWS LTon 09-11-2021 KNEE 2 VIEWS LT [place] [address] Patient: ROMERO GRAY Phone#: : [phone] Age: 71 Gender: F Pt. Type: Out Account: [id number] Location: [facility] Ordering: PATRICIO DUENAS Exam Date: 09/11/2021/13:22 Family Phys: Charge Code: [id number] Physician: [place] Order #: [id number] DLP Dose#: PROCEDURE: X-RAY KNEE LT 2 VIEWS COMPARISON: [facility], CT, LOWER EXTREMITY LT WO, 07/18/2021, 11:02. INDICATIONS: Post op eval. FINDINGS: BONES: There has been interval left knee arthroplasty with femoral and tibial hardware components. Changes to the undersurface of the patellar consistent with patellar button. SOFT TISSUES: Expected postoperative air in the soft tissues. Cutaneous lety are present. EFFUSION: Small expected postoperative joint effusion. OTHER: Negative. CONCLUSION: 1. Expected postoperative changes of left knee arthroplasty. Dictated by: Vicki Vaughan MD on 09/11/2021 at 13:42 Approved by: Vicki Vaughan MD on 09/11/2021 at 13:44 Normal [facility] CORONAVIRUS PCR - [facility] 09-05-2021 SARS-CoV-2 (COVID-19) RNA BRETT+probe Ql (Unsp spec) Negative Normal NORMAL: NEGATIVE [facility] Comment on above: Performed By: #### 2 21205 #### [facility],[address] [place] [address] SEND TO ? NO Normal [facility] Comment on above: Result Comment: RESU LTS FAXED TO INFECTION CONTROL. SARS-CoV-2 THIS TEST IS BEING USED UNDER THE FDA EUA PROCEDURE. THIS ASSAY HAS BEEN VALIDATED IN THE [facility] FOR USE WITH NASOPHARYNGEAL SPECIMENS IN [facility] [place]. [facility]PRET[facility] TEST RESULTS SHOULD ALWAYS BE CONSIDERED IN THE CONTEXT OF CLINICAL OBSERVATIONS AND EPIDEMIOLOGICAL DATA IN MAKING FINAL DIAGNOSIS AND PATIENT MANAGEMENT DECISIONS. PATIENT MANAGEMENT SHOULD FOLLOW CURRENT CDC GUIDELINES. A POSITIVE TEST RESULT FOR COVID-19 INDICATES THAT RNA FROM SARS-CoV-2 WAS DETECTED, AND THE PATIENT IS INFECTED WITH THE VIRUS AND PRESUMED TO BE CONTAGIOUS. A NEGATIVE TEST RESULT FOR THIS TEST MEANS THAT SARS-CoV-2 RNA WAS NOT PRESENT IN THE SPECIMEN ABOVE THE LIMIT OF DETECTION. HOWEVER, A NEGATVIE RESULT DOES NOT RULE OUT COVID-19 AND SHOULD NOT BE USED THE SOLE BASIS FOR TREATMENT OR PATIENT MANAGEMENT DECISIONS. A NEGATIVE RESULT DOES NOT EXCLUDE THE POSSIBILITY OF COVID-19. WHEN DIAGNOSTIC TESTING IS NEGATIVE, THE POSSIBLILTY OF A FALSE NEGATIVE RESULT SHOULD BE CONSIDERED IN THE CONTEXT OF A PATIENT'S RECENT EXPOSURES AND THE PRESENCE OF CLINICAL SIGNS AND SYMPTOMS CONSISTENT WITH COVID-19. THE POSSIBILITY OF A FALSE NEGATIVE RESULT SHOULD ESPECIALLY BE CONSIDERED IF THE PATIENT'S RECENT EXPOSURES OR CLINICAL PRESENTATION INDICATE THAT COVID-19 IS LIKELY, AND DIAGNOSTIC TESTS FOR OTHER CAUSES OF ILLNESS (e.g., OTHER RESPIRATORY ILLNESS) ARE NEGATIVE. IF COVID-19 IS STILL SUSPECTED BASED ON EXPOSURE HISTORY TOGETHER WITH OTHER CLINICAL FINDINGS, RE-TESTED SHOULD BE CONSIDERED BY HEALTHCARE PROVIDERS IN CONSULTATION WITH PUBLIC HEALTH AUTHORITIES. Performed By: #### 2 [id number] #### [facility],[address] [place], [place] [address] with eGFRon 08-30-2021 AGE 71 years Normal [facility] Comment on above: Performed By: #### 2 80136 #### [facility],[address] [place] [address] 66852 Anion gap [Moles/Vol] 13 mmol/L Normal 10 - 20 [facility] Comment on above: Performed By: #### 2 96405 #### [facility],[address] [place] [address] 43524 BMP with eGFR Normal [facility] Comment on above: Result Comment: BASI C METABOLIC PANEL Performed By: #### 2 06951 #### [facility],[address] [place] [address] 15930 Calcium [Mass/Vol] 9.0 mg/dL Normal 8.5 - 10.1 [facility] Comment on above: Performed By: #### 2 07033 #### [facility],[address] [place] [address] 70441 Chloride [Moles/Vol] 104 mmol/L Normal 98 - 107 [facility] Comment on above: Performed By: #### 2 20006 #### [facility],[address] [place] [address] 35218 CO2 [Moles/Vol] 27.6 mmol/L Normal 21.0 - 32.0 [facility] Comment on above: Performed By: #### 2 41852 #### [facility],[address] [place] [address] 03740 Creatinine [Mass/Vol] 0.81 mg/dL Normal 0.55 - 1.02 [facility] Comment on above: Performed By: #### 2 78117 #### [facility],[address] [place] [address] 22426 GFR/1.73 sq M.predicted among non-blacks MDRD (S/P/Bld) [Vol rate/Area] mL/min/{1.73_m2} Normal 60 - 999 [facility] Comment on above: Performed By: #### 2 10193 #### [facility],[address] [place] [address] 44089 Result Comment: ACCO RDING TO THE NATIONAL KIDNEY DISEASE EDUCATION PROGRAM(NKDE), A NORMAL eGFR IS A VALUE GREATER THAN OR EQUAL TO 60 ML/MIN/1.73 SQ METERS. CHRONIC KIDNEY DISEASE: <60mL/MIN/1.73 SQ METERS KIDNEY FAILURE: <15mL/MIN/1.73 SQ METERS THIS TEST SHOULD ONLY BE USED FOR PATIENTS 18 YEARS OF AGE AND OLDER. Glucose [Mass/Vol] 117 mg/dL High 74 - 106 [facility] Comment on above: Performed By: #### 2 42924 #### [facility],[address] [place] [address] 28735 Potassium [Moles/Vol] 4.1 mmol/L Normal 3.5 - 5.1 [facility] Comment on above: Performed By: #### 2 42032 #### [facility],[address] [place] [address] 93198 Sodium [Moles/Vol] 140 mmol/L Normal 136 - 145 [facility] Comment on above: Performed By: #### 2 70186 #### [facility],[address] [place] [address] 76521 Urea nitrogen [Mass/Vol] 18 mg/dL Normal 7 - 18 [facility] Comment on above: Performed By: #### 2 93292 #### [facility],[address] [place] [address] 73456 CBC + DIFFon 08-30-2021 Baso # 0.00 x10EE3/UL Normal 0.00 - 0.10 [facility] Comment on above: Performed By: #### 2 84004 #### [facility],[address] [place] [address] 11090 Basophils/100 WBC (Bld) 0.7 % Normal 0.0 - 2.0 [facility] Comment on above: Performed By: #### 2 13030 #### [facility],[address] [place] [address] 49478 CBC + DIFF Normal [facility] Comment on above: Result Comment: CBC- COMPLETE BLOOD COUNT Performed By: #### 2 13501 #### [place] [address] EO # 0.20 x10EE3/UL Normal 0.00 - 0.50 [facility] Comment on above: Performed By: #### 2 14877 #### [place] [address] Eosinophils/100 WBC (Bld) 3.2 % Normal 0.0 - 7.0 [facility] Comment on above: Performed By: #### 2 01094 #### [place] [address] Erythrocyte distribution width (RBC) [Ratio] 13.6 % Normal 12.0 - 15.6 [facility] Comment on above: Performed By: #### 2 59165 #### [place] [address] Hematocrit (Bld) [Volume fraction] 40.3 % Normal 34.0 - 46.0 [facility] Comment on above: Performed By: #### 2 71801 #### [place] [address] Hemoglobin (Bld) [Mass/Vol] 13.7 g/dL Normal 12.0 - 16.0 [facility] Comment on above: Performed By: #### 2 44495 #### [place] [id number] Lymph # 1.60 x10EE3/UL Normal 0.80 - 2.80 [facility] Comment on above: Performed By: #### 2 25831 #### [place] [id number] Lymphocytes/100 WBC (Bld) 28.3 % Normal 20.0 - 45.0 [facility] Comment on above: Performed By: #### 2 67982 #### [facility],[address] [place] [address] MANUAL DIFF N/A Normal [facility] Comment on above: Performed By: #### 2 65814 #### [facility],[address] [place] [address] MCH (RBC) [Entitic mass] 32 pg Normal 27 - 33 [facility] Comment on above: Performed By: #### 2 67872 #### [facility],[address] [place] [address] MCHC 34 X10 3 Normal 32 - 36 [facility] Comment on above: Performed By: #### 2 82188 #### [facility],[address] [place] [address] MCV (RBC) [Entitic vol] 93 fL Normal 80 - 99 [facility] Comment on above: Performed By: #### 2 32189 #### [facility],[address] [place] [address] [place] # 0.40 x10EE3/UL Normal 0.20 - 1.00 [facility] Comment on above: Performed By: #### 2 88768 #### [place] [address] MONOS % 7.6 % Normal 0.0 - 10.0 [facility] Comment on above: Performed By: #### 2 38762 #### [facility],[address] [place] [address] Morphology Wade (Bld) [Interp] N/A Normal [facility] Comment on above: Result Comment: {CD] Performed By: #### 2 60778 #### [place] [address] Neut # 3.50 x10EE3/UL Normal 1.50 - 7.10 [facility] Comment on above: Performed By: #### 2 76577 #### [place] [address] Neutrophils/100 WBC (Bld) 60.2 % Normal 46.0 - 76.0 [facility] Comment on above: Performed By: #### 2 66802 #### [facility],[address] [place] [address] 25123 PLATELET 197 x10EE3/UL Normal 150 - 450 [facility] Comment on above: Performed By: #### 2 73414 #### [facility],[address] [place] [address] 58753 Platelet mean volume (Bld) [Entitic vol] 7.9 fL Normal 6.6 - 10.5 [facility] Comment on above: Result Comment: AUTO MATED DIFFERENTIAL Performed By: #### 2 18917 #### [facility],[address] [place] [address] 25743 RBC 4.36 x 10EE6/UL Normal 4.10 - 5.30 [facility] Comment on above: Performed By: #### 2 96255 #### [facility],[address] [place] [address] 98853 WBC 5.8 x 10EE3/UL Normal 4.5 - 10.8 [facility] Comment on above: Performed By: #### 2 83104 #### [facility],[address] [place] [address] LOWER EXTREMITY LT WOon 1 09-17-2020 CT LOWER EXTREMITY LT [place] [address] Patient: ROMERO GRAY Phone#: : 1950 Age: 71 Gender: F Pt. Type: Out Account: [id number] Location: [facility] Ordering: PATRICIO DUENAS Exam Date: 07/18/2021/11:02 Family Phys: Charge Code: [id number] Physician: [place] Order #: [id number] DLP Dose#: [id number] PROCEDURE: CT LOWER EXTREMITY LT WO CONTRAST COMPARISON: None. INDICATIONS: Conformis. TECHNIQUE: Multi-planar CT images were created without intravenous contrast. All CT scans at this facility use dose modulation, iterative reconstruction, and/or weight based dosing when appropriate to reduce radiation dose to as low as reasonably achievable. IV CONTRAST: No IV contrast used,0ml TOTAL DOSE: 37.80 CTDIvol(mGy) FINDINGS: BONES: Moderate degenerative changes of the knee are present. There are osteophytes at medial lateral femoral condyle and medial lateral tibial plateau. Osteophytes are present at the posterior patella. SOFT TISSUES: There is soft tissue swelling and associated calcifications distal to the medial malleolus. Hardware is present in the calcaneus EFFUSION: Small suprapatellar joint effusion is present. OTHER: Negative. CONCLUSION: 1. Moderate degenerative changes of the knee are present. 2. Soft tissue swelling and associated calcifications are present distal to the medial malleolus. Dictated by: Nisreen Moreno MD on 07/18/2021 at 11:42 Approved by: Nisreen Moreno MD on 07/18/2021 at 11:46 [facility] Final Surgical Pathology Rep [facility] 04-13-2021 Final Surgical Pathology Report . Pathology Reports Accession: Collected Date/Time: Received Date/Time: Pathologist: [id number] 04/10/2021 09:13 EDT 04/11/2021 09:13 EDT BACILIO LUQUE MD Final Surgical Pathology Report DIAGNOSIS: RIGHT KNEE BONE - DEGENERATIVE CHANGES IN ARTICULAR CARTILAGE. SUBCHONDRAL BONE WITH PATCHY FIBROSIS AND DEGENERATIVE CHANGES. NEGATIVE FOR MALIGNANCY. COMMENT: JP - [id number] CLINICAL INFORMATION: UNILATERAL PRIMARY OSTEOARTHRITIS RIGHT KNEE SPECIMEN: A RIGHT KNEE BONE GROSS DESCRIPTION: Received in formalin labeled with the patient's name and not designated are multiple fragments of irregular bone, articular cartilage and periarticular soft tissues, in aggregate 12.0 x 11.5 x 4.5 cm. Portions of the articular surfaces show marked erosion of the cartilage revealing underlying roughened bone. Digital Press Operator sections submitted in one cassette after decalcification. dictated by Daniel Wen M.D. Dictated by KAREN ABDI MICROSCOPIC DESCRIPTION: Slides reviewed. Electronically Signed by Pathology Report verified by [facility] Electronically signed by BACILIO LUQUE Sign out Date: 04/13/2021 17:02 Performing Lab: [facility], [address] [place] [address] [facility] Normal [facility] [place] Comment on above: Performed By: #### S PFR #### [place] [id number] BMP with eGFRon 04-11-2021 AGE 70 years Normal [facility] Comment on above: Performed By: #### 2 05152 ####[facility],[address] [place] [address] 58455 Anion gap [Moles/Vol] 12 mmol/L Normal 10 - 20 [facility] Comment on above: Performed By: #### 2 34756 ####[facility],[address] [place] [address] 76874 BMP with eGFR Normal [facility] Comment on above: Result Comment: BASI C METABOLIC PANEL Performed By: #### 2 14809 ####[facility],[address] [place] [address] 34881 Calcium [Mass/Vol] 7.7 mg/dL Low 8.5 - 10.1 [facility] Comment on above: Performed By: #### 2 22578 ####[facility],[address] [place] [address] 48840 Chloride [Moles/Vol] 103 mmol/L Normal 98 - 107 [facility] Comment on above: Performed By: #### 2 67570 ####[facility],[address] [place] [address] 88461 CO2 [Moles/Vol] 24.3 mmol/L Normal 21.0 - 32.0 [facility] Comment on above: Performed By: #### 2 93654 ####[facility],[address] [place] [address] 59708 Creatinine [Mass/Vol] 1.01 mg/dL Normal 0.55 - 1.02 [facility] Comment on above: Performed By: #### 2 61282 ####[facility],[address] [place] [address] 80262 eGFR 54 ML/MINUTE Low 60 - 999 [facility] Comment on above: Performed By: #### 2 28724 ####[address] [address] GFR/1.73 sq M.predicted among non-blacks MDRD (S/P/Bld) [Vol rate/Area] mL/min/{1.73_m2} Normal 60 - 999 [facility] Comment on above: Result Comment: ACCO RDING TO THE NATIONAL KIDNEY DISEASE EDUCATION PROGRAM(NKDE), A NORMAL eGFR IS A VALUE GREATER THAN OR EQUAL TO 60 ML/MIN/1.73 SQ METERS. CHRONIC KIDNEY DISEASE: <60mL/MIN/1.73 SQ METERS KIDNEY FAILURE: <15mL/MIN/1.73 SQ METERS THIS TEST SHOULD ONLY BE USED FOR PATIENTS 18 YEARS OF AGE AND OLDER. Performed By: #### 2 48888 ####[address] [address] Glucose [Mass/Vol] 164 mg/dL High 74 - 106 [facility] Comment on above: Performed By: #### 2 09706 ####[address] [address] Potassium [Moles/Vol] 4.5 mmol/L Normal 3.5 - 5.1 [facility] Comment on above: Performed By: #### 2 44950 ####[address] [address] Sodium [Moles/Vol] 135 mmol/L Low 136 - 145 [facility] Comment on above: Performed By: #### 2 80131 ####[address] [address] Urea nitrogen [Mass/Vol] 17 mg/dL Normal 7 - 18 [facility] Comment on above: Performed By: #### 2 08854 ####[address] [address] CBC + DIFFon 04-11-2021 Baso # 0.00 x10EE3/UL Normal 0.00 - 0.10 [facility] Comment on above: Performed By: #### 2 90768 #### [facility],[address] [place] [address] 68805 Basophils/100 WBC (Bld) 0.4 % Normal 0.0 - 2.0 [facility] Comment on above: Performed By: #### 2 15880 #### [facility],[address] [place] [address] CBC + DIFF Normal [facility] Comment on above: Result Comment: CBC- COMPLETE BLOOD COUNT Performed By: #### 2 46142 #### [facility],[address] [place] [address] EO # 0.00 x10EE3/UL Normal 0.00 - 0.50 [facility] Comment on above: Performed By: #### 2 44116 #### [facility],[address] [place] [address] Eosinophils/100 WBC (Bld) 0.0 % Normal 0.0 - 7.0 [facility] Comment on above: Performed By: #### 2 85284 #### [facility],[address] [place] [address] Erythrocyte distribution width (RBC) [Ratio] 12.7 % Normal 12.0 - 15.6 [facility] Comment on above: Performed By: #### 2 56456 #### [facility],[address] [place] [address] Hematocrit (Bld) [Volume fraction] 36.8 % Normal 34.0 - 46.0 [facility] Comment on above: Performed By: #### 2 03589 #### [facility],[address] [place] [address] Hemoglobin (Bld) [Mass/Vol] 12.6 g/dL Normal 12.0 - 16.0 [facility] Comment on above: Performed By: #### 2 06679 #### [facility],[address] [place] [address] Lymph # 0.80 x10EE3/UL Normal 0.80 - 2.80 [facility] Comment on above: Performed By: #### 2 76692 #### [facility],[address] [place] [address] Lymphocytes/100 WBC (Bld) 9.4 % Low 20.0 - 45.0 [facility] Comment on above: Performed By: #### 2 57460 #### [facility],[address] [place] [address] MANUAL DIFF N/A Normal [facility] Comment on above: Performed By: #### 2 94317 #### [facility],[address] [place] [address] MCH (RBC) [Entitic mass] 32 pg Normal 27 - 33 [facility] Comment on above: Performed By: #### 2 91824 #### [facility],[address] [place] [address] MCHC 34 X10 3 Normal 32 - 36 [facility] Comment on above: Performed By: #### 2 66185 #### [facility],[address] [place], [place] [address] MCV (RBC) [Entitic vol] 94 fL Normal 80 - 99 [facility] Comment on above: Performed By: #### 2 48723 #### [facility],[address] [place] [address] 81273 [place] # 0.30 x10EE3/UL Normal 0.20 - 1.00 [facility] Comment on above: Performed By: #### 2 79943 #### [facility],[address] [place] [address] 64817 MONOS % 4.0 % Normal 0.0 - 10.0 [facility] Comment on above: Performed By: #### 2 26440 #### [facility] [place] [address] 30743 Morphology Wade (Bld) [Interp] N/A Normal [facility] Comment on above: Result Comment: {CD] Performed By: #### 2 48962 #### [facility],[address] [place] [address] 83628 Neut # 7.30 x10EE3/UL High 1.50 - 7.10 [facility] Comment on above: Performed By: #### 2 54436 #### [facility],[address] [place] [address] 24580 Neutrophils/100 WBC (Bld) 86.2 % High 46.0 - 76.0 [facility] Comment on above: Performed By: #### 2 05581 #### [facility],[address] [place] [address] 13414 PLATELET 173 x10EE3/UL Normal 150 - 450 [facility] Comment on above: Performed By: #### 2 32126 #### [facility],[address] [place] [address] 33818 Platelet mean volume (Bld) [Entitic vol] 7.3 fL Normal 6.6 - 10.5 [facility] Comment on above: Result Comment: AUTO MATED DIFFERENTIAL Performed By: #### 2 91861 #### [facility],[address] [place] [address] 27763 RBC 3.92 x 10EE6/UL Low 4.10 - 5.30 [facility] Comment on above: Performed By: #### 2 72430 #### [facility],[address] [place] [address] 38754 WBC 8.5 x 10EE3/UL Normal 4.5 - 10.8 [facility] Comment on above: Performed By: #### 2 66678 #### [facility],[address] [place] [address] 21889 KNEE 2 VIEWS RTon 04-10-2021 KNEE 2 VIEWS RT [place] [address] Patient: ROMERO GRAY Phone#: : 1950 Age: 70 Gender: F Pt. Type: Out Account: [id number] Location: [facility] Ordering: PATRICIO DUENAS Exam Date: 04/10/2021/15:48 Family Phys: Charge Code: [id number] Physician: [place] Order #: [id number] DLP Dose#: PROCEDURE: X-RAY KNEE RT 2 VIEWS COMPARISON: None. INDICATIONS: Postoperative. FINDINGS: BONES: Total knee prosthesis is present. The adjacent bony architecture is intact. SOFT TISSUES: Postsurgical soft tissue air is present. There is a calcification medial to the medial femoral condyle consistent with avulsed bone fragment. EFFUSION: None visible. OTHER: Negative. CONCLUSION: 1. Total knee prosthesis is present. Dictated by: Nisreen Moreno MD on 04/10/2021 at 17:08 Approved by: Nisreen Moreno MD on 04/10/2021 at 17:08 Normal [facility] BMP with eGFRon 03-22-2021 AGE 70 years Normal [facility] Comment on above: Performed By: #### 2 71143 ####[facility],[address] [place] [address] Anion gap [Moles/Vol] 13 mmol/L Normal 10 - 20 [facility] Comment on above: Performed By: #### 2 00986 ####[facility],[address] [place], [place] [id number] BMP with eGFR Normal [facility] Comment on above: Result Comment: BASI C METABOLIC PANEL Performed By: #### 2 44693 ####[facility],[address] [place], [place] [address] Calcium [Mass/Vol] 9.2 mg/dL Normal 8.5 - 10.1 [facility] Comment on above: Performed By: #### 2 97380 ####[facility],[address] [place], [place] [address] Chloride [Moles/Vol] 103 mmol/L Normal 98 - 107 [facility] Comment on above: Performed By: #### 2 00634 ####[facility],[address] [place], [place] [address] CO2 [Moles/Vol] 24.7 mmol/L Normal 21.0 - 32.0 [facility] Comment on above: Performed By: #### 2 73768 ####[facility],[address] [place], [place] [address] Creatinine [Mass/Vol] 0.87 mg/dL Normal 0.55 - 1.02 [facility] Comment on above: Performed By: #### 2 41172 ####[facility],[address] [place] [address] GFR/1.73 sq M.predicted among non-blacks MDRD (S/P/Bld) [Vol rate/Area] mL/min/{1.73_m2} Normal 60 - 999 [facility] Comment on above: Performed By: #### 2 54865 ####[facility],[address] [place] [address] Result Comment: ACCO RDING TO THE NATIONAL KIDNEY DISEASE EDUCATION PROGRAM(NKDE), A NORMAL eGFR IS A VALUE GREATER THAN OR EQUAL TO 60 ML/MIN/1.73 SQ METERS. CHRONIC KIDNEY DISEASE: <60mL/MIN/1.73 SQ METERS KIDNEY FAILURE: <15mL/MIN/1.73 SQ METERS THIS TEST SHOULD ONLY BE USED FOR PATIENTS 18 YEARS OF AGE AND OLDER. Glucose [Mass/Vol] 100 mg/dL Normal 74 - 106 [facility] Comment on above: Performed By: #### 2 21024 ####[facility],[address] [place], [place] [address] Potassium [Moles/Vol] 3.9 mmol/L Normal 3.5 - 5.1 [facility] Comment on above: Performed By: #### 2 45666 ####[facility],[address] [place] [address] 44613 Sodium [Moles/Vol] 137 mmol/L Normal 136 - 145 [facility] Comment on above: Performed By: #### 2 78384 ####[facility],[address] [place] [address] 24374 Urea nitrogen [Mass/Vol] 20 mg/dL High 7 - 18 [facility] Comment on above: Performed By: #### 2 58350 ####[facility],[address] [place] [address] 10714 CBC + DIFFon 03-22-2021 Baso # 0.00 x10EE3/UL Normal 0.00 - 0.10 [facility] Comment on above: Performed By: #### 2 23600 #### [facility],[address] [place] [address] 43269 Basophils/100 WBC (Bld) 0.6 % Normal 0.0 - 2.0 [facility] Comment on above: Performed By: #### 2 00402 #### [facility],[address] [place] [address] 53854 CBC + DIFF Normal [facility] Comment on above: Result Comment: CBC- COMPLETE BLOOD COUNT Performed By: #### 2 67687 #### [facility],[address] [place] [address] 81182 EO # 0.20 x10EE3/UL Normal 0.00 - 0.50 [facility] Comment on above: Performed By: #### 2 27437 #### [facility],[address] [place] [address] 00884 Eosinophils/100 WBC (Bld) 2.6 % Normal 0.0 - 7.0 [facility] Comment on above: Performed By: #### 2 24350 #### [facility],[address] [place] [address] 82953 Erythrocyte distribution width (RBC) [Ratio] 13.0 % Normal 12.0 - 15.6 [facility] Comment on above: Performed By: #### 2 51368 #### [facility],[address] [place] [address] 13228 Hematocrit (Bld) [Volume fraction] 41.7 % Normal 34.0 - 46.0 [facility] Comment on above: Performed By: #### 2 62653 #### [facility],[address] [place] [address] Hemoglobin (Bld) [Mass/Vol] 14.0 g/dL Normal 12.0 - 16.0 [facility] Comment on above: Performed By: #### 2 43860 #### [facility],[address] [place] [address] Lymph # 2.00 x10EE3/UL Normal 0.80 - 2.80 [facility] Comment on above: Performed By: #### 2 55025 #### [facility],[address] [place] [address] Lymphocytes/100 WBC (Bld) 28.5 % Normal 20.0 - 45.0 [facility] Comment on above: Performed By: #### 2 72912 #### [facility],[address] [place] [address] MANUAL DIFF N/A Normal [facility] Comment on above: Performed By: #### 2 50481 #### [facility],[address] [place], [place] [address] MCH (RBC) [Entitic mass] 31 pg Normal 27 - 33 [facility] Comment on above: Performed By: #### 2 83111 #### [facility],[address] [place], [place] [address] MCHC 34 X10 3 Normal 32 - 36 [facility] Comment on above: Performed By: #### 2 54370 #### [facility],[address] [place] [address] 14897 MCV (RBC) [Entitic vol] 93 fL Normal 80 - 99 [facility] Comment on above: Performed By: #### 2 92249 #### [facility],[address] [place] [address] 05767 [place] # 0.60 x10EE3/UL Normal 0.20 - 1.00 [facility] Comment on above: Performed By: #### 2 44435 #### [facility],[address] [place] [address] 52312 MONOS % 8.2 % Normal 0.0 - 10.0 [facility] Comment on above: Performed By: #### 2 28248 #### [facility],[address] [place] [address] 73112 Morphology Wade (Bld) [Interp] N/A Normal [facility] Comment on above: Result Comment: {CD] Performed By: #### 2 80689 #### [facility],[address] [place] [address] 40734 Neut # 4.30 x10EE3/UL Normal 1.50 - 7.10 [facility] Comment on above: Performed By: #### 2 71355 #### [facility],[address] [place] [address] 52186 Neutrophils/100 WBC (Bld) 60.1 % Normal 46.0 - 76.0 [facility] Comment on above: Performed By: #### 2 85638 #### [facility],[address] [place] [address] 23867 PLATELET 211 x10EE3/UL Normal 150 - 450 [facility] Comment on above: Performed By: #### 2 37893 #### [facility],[address] [place] [address] 30251 Platelet mean volume (Bld) [Entitic vol] 7.6 fL Normal 6.6 - 10.5 [facility] Comment on above: Result Comment: AUTO MATED DIFFERENTIAL Performed By: #### 2 16669 #### [facility],[address] [place] [address] 19262 RBC 4.48 x 10EE6/UL Normal 4.10 - 5.30 [facility] Comment on above: Performed By: #### 2 78963 #### [facility],[address] [place] [address] 44290 WBC 7.2 x 10EE3/UL Normal 4.5 - 10.8 [facility] Comment on above: Performed By: #### 2 50201 #### [facility],[address] [place] [address] LOWER EXTREMITY RT WOon 0 01-27-2021 CT LOWER EXTREMITY RT WO [facility] [address] [place] [address] Patient: ROMERO GRAY Phone#: : 1950 Age: 70 Gender: F Pt. Type: Out Account: [id number] Location: Ordering: PATRICIO DUENAS Exam Date: 01/27/2021/11:45 Family Phys: Charge Code: [id number] Physician: [place] Order #: [id number] DLP Dose#: PROCEDURE: CT LOWER EXTREMITY RT WO CONTRAST COMPARISON: None. INDICATIONS: Conformis. TECHNIQUE: Multi-planar CT images were created without intravenous contrast. All CT scans at this facility use dose modulation, iterative reconstruction, and/or weight based dosing when appropriate to reduce radiation dose to as low as reasonably achievable. IV CONTRAST: No IV contrast used,ml TOTAL DOSE: 37.1 CTDIvol(mGy) FINDINGS: BONES: There is spurring of the undersurface of the patella and femoral trochlea. There is spurring of the femoral condyles and tibial plateau. There is medial compartment joint space loss. SOFT TISSUES: There are atherosclerotic calcifications. Varicosities are seen in the subcutaneous tissues of the lower extremity. EFFUSION: Small joint effusion. OTHER: Screws are present in the calcaneus surgical hardware is seen in the medial cuneiform. CONCLUSION: 1. Tricompartmental osteoarthritis. Dictated by: Vicki Vaughan MD on 01/27/2021 at 16:34 Approved by: Vicki Vaughan MD on 01/27/2021 at 16:39 Normal [facility] Vital Signs Date Time Vital Sign Value Performing Clinician Antonio noel 04-15-2025 09:58-0400 Body height 165.[address] Abran Yanes MD Work Phone: [facility] 04-15-2025 09:58-0400 Body mass index (BMI) [Ratio] 34.2 kg/m2 Dr. Abran Yanes MD Work Phone: [facility] 04-15-2025 09:58-0400 Body temperature 98.4 [degF] Dr. Abran Yanes MD Work Phone: [facility] 04-15-2025 09:58-0400 Body weight 93.[address] Abran Yanes MD Work Phone: [facility] 04-15-2025 09:58-0400 Diastolic blood pressure 77 mm[Hg] Dr. Abran Yanes MD Work Phone: [facility] 04-15-2025 09:58-0400 Heart rate 66 /min Dr. Abran Yanes MD Work Phone: [facility] 04-15-2025 09:58-0400 Respiratory rate 16 /min Dr. Abran Yanes MD Work Phone: [facility] 04-15-2025 09:58-0400 SaO2% (BldA) [Mass fraction] 93 % Dr. Abran Yanes MD Work Phone: [facility] 04-15-2025 09:58-0400 Systolic blood pressure 117 mm[Hg] Dr. Abran Yanes MD Work Phone: [facility] 03-31-2025 14:30-0400 Body height 165.[address] Abran Yanes MD Work Phone: [facility] 03-31-2025 14:30-0400 Body mass index (BMI) [Ratio] 34.1 kg/m2 Dr. Abran Yanes MD Work Phone: [facility] 03-31-2025 14:30-0400 Body weight 92.[address] Abran Yanes MD Work Phone: [facility] 03-31-2025 14:30-0400 Diastolic blood pressure 70 mm[Hg] Dr. Abran Yanes MD Work Phone: [facility] 03-31-2025 14:30-0400 Heart rate 79 /min Dr. Abran Yanes MD Work Phone: [facility] 03-31-2025 14:30-0400 Respiratory rate 16 /min Dr. Abran Yanes MD Work Phone: [facility] 03-31-2025 14:30-0400 Systolic blood pressure 112 mm[Hg] Dr. Abran Yanes MD Work Phone: [facility] 07-28-2024 15:55-0500 Body height 165.[address] Abran Yanes MD Work Phone: [facility] 07-28-2024 15:55-0500 Body mass index (BMI) [Ratio] 34.2 kg/m2 Dr. Abran Yanes MD Work Phone: [facility] 07-28-2024 15:55-0500 Body weight 93.[address] Abran Yanes MD Work Phone: [facility] 07-28-2024 15:55-0500 Diastolic blood pressure 54 mm[Hg] Dr. Abran Yanes MD Work Phone: [facility] 07-28-2024 15:55-0500 Heart rate 91 /min Dr. Abran Yanes MD Work Phone: [facility] 07-28-2024 15:55-0500 Respiratory rate 16 /min Dr. Abran Yanes MD Work Phone: [facility] 07-28-2024 15:55-0500 Systolic blood pressure 94 mm[Hg] Dr. Abran Yanes MD Work Phone: [facility] 07-20-2024 11:04-0500 Body height 166.4 cm Candice Carter PA-C Work Phone: [facility] 07-20-2024 11:04-0500 Body mass index (BMI) [Ratio] 33.41 kg/m2 Candice Carter PA-C Work Phone: [facility] 07-20-2024 11:04-0500 Body weight 92.49 kg Candice Carter PA-C Work Phone: [facility] 07-20-2024 11:04-0500 Diastolic blood pressure 78 mm[Hg] Candice Carter PA-C Work Phone: [facility] 07-20-2024 11:04-0500 Heart rate 60 /min Candice Carter PA-C Work Phone: [facility] 07-20-2024 11:04-0500 Systolic blood pressure 134 mm[Hg] Candice Carter PA-C Work Phone: [facility] 07-19-2024 00:28-0500 Body weight 90.[address] Abran Yanes MD Work Phone: [facility] 07-03-2024 14:37-0500 Body weight 91.[address] Abran Yanes MD Work Phone: [facility] 07-23-2023 12:14-0500 Body height 165.[address] Abran Yanes Work Phone: [facility] 07-23-2023 12:14-0500 Body mass index (BMI) [Ratio] 32.4 kg/m2 Dr. Abran Yanes Work Phone: [facility] 07-23-2023 12:14-0500 Body temperature 97.6 [degF] Dr. Abran Yanes Work Phone: [facility] 07-23-2023 12:14-0500 Body weight 88.[address] Abran Yanes Work Phone: [facility] 07-23-2023 12:14-0500 Diastolic blood pressure 87 mm[Hg] Dr. Abran Yanes Work Phone: [facility] 07-23-2023 12:14-0500 Heart rate 67 /min Dr. Abran Yanes Work Phone: [facility] 07-23-2023 12:14-0500 Respiratory rate 16 /min Dr. Abran Yanes Work Phone: [facility] 07-23-2023 12:14-0500 SaO2% (BldA) [Mass fraction] 96 % Dr. Abran Yanes Work Phone: [facility] 07-23-2023 12:14-0500 Systolic blood pressure 135 mm[Hg] Dr. Abran Yanes Work Phone: [facility] 06-13-2023 09:27-0400 Body mass index (BMI) [Ratio] 34.3 kg/m2 Dr. Abran Yanes Work Phone: [facility] 06-13-2023 09:27-0400 Body temperature 98.1 [degF] Dr. Abran Yanes Work Phone: [facility] 06-13-2023 09:27-0400 Body weight 93.[address] Abran Yanes Work Phone: [facility] 06-13-2023 09:27-0400 Diastolic blood pressure 83 mm[Hg] Dr. Abran Yanes Work Phone: [facility] 06-13-2023 09:27-0400 Heart rate 93 /min Dr. Abran Yanes Work Phone: [facility] 06-13-2023 09:27-0400 Respiratory rate 16 /min Dr. Abran Yanes Work Phone: [facility] 06-13-2023 09:27-0400 SaO2% (BldA) [Mass fraction] 93 % Dr. Abran Yanes Work Phone: [facility] 06-13-2023 09:27-0400 Systolic blood pressure 133 mm[Hg] Dr. Abran Yanes Work Phone: [facility] 05-13-2023 09:00-0400 Body mass index (BMI) [Ratio] 34.7 kg/m2 Dr. Abran Yanes Work Phone: [facility] 05-13-2023 09:00-0400 Body temperature 97.5 [degF] Dr. Abran Yanes Work Phone: [facility] 05-13-2023 09:00-0400 Body weight 94.[address] Abran Yanes Work Phone: [facility] 05-13-2023 09:00-0400 Diastolic blood pressure 71 mm[Hg] Dr. Abran Yanes Work Phone: [facility] 05-13-2023 09:00-0400 Heart rate 84 /min Dr. Abran Yanes Work Phone: [facility] 05-13-2023 09:00-0400 Respiratory rate 18 /min Dr. Abran Yanes Work Phone: [facility] 05-13-2023 09:00-0400 SaO2% (BldA) [Mass fraction] 92 % Dr. Abran Yanes Work Phone: [facility] 05-13-2023 09:00-0400 Systolic blood pressure 106 mm[Hg] Dr. Abran Yanes Work Phone: [facility] 10-08-2022 11:27-0500 Respiratory rate 16 /min Dr. Srinivas Jacobs Work Phone: [facility] 10-08-2022 10:02-0500 Body height 165.[address] Srinivas Jacobs Work Phone: [facility] 10-08-2022 10:02-0500 Body mass index (BMI) [Ratio] 33.7 kg/m2 Dr. Srinivas Jacobs Work Phone: [facility] 10-08-2022 10:02-0500 Body temperature 96.9 [degF] Dr. Srinivas Jacobs Work Phone: [facility] 10-08-2022 10:02-0500 Body weight 92.[address] Srinivas Jacobs Work Phone: [facility] 10-08-2022 10:02-0500 Diastolic blood pressure 84 mm[Hg] Dr. Srinivas Jacobs Work Phone: [facility] 10-08-2022 10:02-0500 Heart rate 79 /min Dr. Srinivas Jacobs Work Phone: [facility] 10-08-2022 10:02-0500 SaO2% (BldA) [Mass fraction] 98 % Dr. Srinivas Jacobs Work Phone: [facility] 10-08-2022 10:02-0500 Systolic blood pressure 133 mm[Hg] Dr. Srinivas Jacobs Work Phone: [facility] 08-06-2022 10:36-0500 Body height 165.[address] Abran Yanes Work Phone: [facility] 08-06-2022 10:36-0500 Body mass index (BMI) [Ratio] 34.4 kg/m2 Dr. Abran Yanes Work Phone: [facility] 08-06-2022 10:36-0500 Body weight 93.[address] Abran Yanes Work Phone: [facility] 08-06-2022 10:36-0500 Diastolic blood pressure 80 mm[Hg] Dr. Abran Yanes Work Phone: [facility] 08-06-2022 10:36-0500 Heart rate 71 /min Dr. Abran Yanes Work Phone: [facility] 08-06-2022 10:36-0500 Respiratory rate 18 /min Dr. Abran Yanes Work Phone: [facility] 08-06-2022 10:36-0500 SaO2% (BldA) [Mass fraction] 95 % Dr. Abran Yanes Work Phone: [facility] 08-06-2022 10:36-0500 Systolic blood pressure 123 mm[Hg] Dr. Abran Yanes Work Phone: [facility] 05-03-2022 13:02-0400 Body temperature 98 [degF] Dr. Srinivas Jacobs Work Phone: [facility] Work Phone: 05-03-2022 13:02-0400 Body weight 93.[address] Srinivas Jacobs Work Phone: [facility] Work Phone: 05-03-2022 13:02-0400 Diastolic blood pressure 79 mm[Hg] Dr. Srinivas Jacobs Work Phone: [facility] Work Phone: 05-03-2022 13:02-0400 Heart rate 72 /min Dr. Srinivas Jacosb Work Phone: [facility] Work Phone: 05-03-2022 13:02-0400 Respiratory rate 16 /min Dr. Srinivas Jacobs Work Phone: [facility] Work Phone: 05-03-2022 13:02-0400 SaO2% (BldA) [Mass fraction] 95 % Dr. Srinivas Jacobs Work Phone: [facility] Work Phone: 05-03-2022 13:02-0400 Systolic blood pressure 120 mm[Hg] Dr. Srinivas Jacobs Work Phone: [facility] Work Phone: 03-07-2022 14:56-0400 Body height 165.[address] Srinivas Jacobs Work Phone: [facility] Work Phone: 03-07-2022 14:56-0400 Body mass index (BMI) [Ratio] 34.4 kg/m2 Dr. Srinivas Jacobs Work Phone: [facility] Work Phone: 03-07-2022 14:56-0400 Body temperature 97.1 [degF] Dr. Srinivas Jacobs Work Phone: [facility] Work Phone: 03-07-2022 14:56-0400 Body weight 94.[address] Srinivas Jacobs Work Phone: [facility] Work Phone: 03-07-2022 14:56-0400 Diastolic blood pressure 72 mm[Hg] Dr. Srinivas Jacobs Work Phone: [facility] Work Phone: 03-07-2022 14:56-0400 Heart rate 77 /min Dr. Srinivas Jacobs Work Phone: [facility] Work Phone: 03-07-2022 14:56-0400 Respiratory rate 18 /min Dr. Srinivas Jacobs Work Phone: [facility] Work Phone: 03-07-2022 14:56-0400 SaO2% (BldA) [Mass fraction] 97 % Dr. Srinivas Jacobs Work Phone: [facility] Work Phone: 03-07-2022 14:56-0400 Systolic blood pressure 110 mm[Hg] Dr. Srinivas Jacobs Work Phone: [facility] Work Phone: 02-07-2022 14:55-0400 Body height 165.[address] Srinivas Jacobs Work Phone: [facility] Work Phone: 02-07-2022 14:55-0400 Body mass index (BMI) [Ratio] 34.4 kg/m2 Dr. Srinivas Jacobs Work Phone: [facility] Work Phone: 02-07-2022 14:55-0400 Body weight 93.[address] Srinivas Jacobs Work Phone: [facility] Work Phone: 02-07-2022 14:55-0400 Diastolic blood pressure 68 mm[Hg] Dr. Srinivas Jacobs Work Phone: [facility] Work Phone: 02-07-2022 14:55-0400 Heart rate 77 /min Dr. Srinivas Jacobs Work Phone: [facility] Work Phone: 02-07-2022 14:55-0400 Respiratory rate 18 /min Dr. Srinivas Jacobs Work Phone: [facility] Work Phone: 02-07-2022 14:55-0400 SaO2% (BldA) [Mass fraction] 94 % Dr. Srinivas Jacobs Work Phone: [facility] Work Phone: 02-07-2022 14:55-0400 Systolic blood pressure 113 mm[Hg] Dr. Srinivas Jacobs Work Phone: [facility] Work Phone: Encounters Encounter Date Encounter Type Care Provider Facility Start: 04-15-2025 End: 04-15-[address] Abran Yanes MD -[facility] Work Phone: Start: 04-15-2025 End: 04-15-[address] Abran Yanes MD Work Phone: -[facility] Start: 03-31-2025 End: 03-31-2025 Patient encounter procedure Janiya DEL ANGEL -[facility] Work Phone: Start: 03-31-2025 End: 03-31-[address] Abran Yanes MD Work Phone: -[facility] Start: 10-12-2024 End: 10-12-[address] Abran Yanes MD Work Phone: [facility] Work Phone: Start: 10-12-2024 End: 10-12-[address] Abran Yanes MD -Outpatient [facility] Work Phone: Start: 10-12-2024 End: 10-12-2024 ambulatory [facility] Facility:[facility] Start: 09-01-2024 End: 09-01-2024 ambulatory Julius Magallanes MD Work Phone: Gastroenterology Comment on above: Recurrent Clostridio ides difficile infection Start: 09-01-2024 End: 09-01-2024 Telemedicine consultation with patient Julius Magallanes MD Work Phone: Gastroenterology Start: 08-29-[address] [facility] Facility :[facility] Start: 07-28-2024 End: 07-28-[address] Dash Prabhakar MD -[facility] Work Phone: Start: 07-28-2024 End: 07-28-2024 ambulatory [facility] Facility:[facility] Start: 07-22-2024 End: 07-22-2024 Telephone encounter Candice Carter PA-C Work Phone: [facility] [place] Comment on above: Medication Problem Start: 07-20-2024 End: 07-20-2024 ambulatory ABRAN YANES Facility:[facility] Start: 07-20-2024 End: 07-20-2024 Patient encounter procedure Candice Carter PA-C Work Phone: [facility] [place] Comment on above: Recurrent Clostridio ides difficile infection (Primary Dx) Start: 07-20-2024 End: 08-18-[address] Dash Prabhakar MD -Cardiac Rehab Work Phone: Start: 07-20-2024 End: 08-18-2024 ambulatory Abranleigh Yanes Facility:[facility] Start: 07-15-2024 End: 07-18-2024 ambulatory Abranleigh Yanes Facility:[facility] Start: 07-15-2024 End: 07-18-[address] Dash Prabhakar MD -Cardiac Rehab Work Phone: Start: 07-03-2024 ambulatory Abran Yanes Facility :[facility] Start: 07-03-2024 Non-patient / Non-visit Dr. Aleksandar ALVAREZ -[facility] Start: 07-03-2024 End: 07-03-2024 Patient encounter procedure Bela Roberson COOLER OPERATOR-C -Cardiovascular Services Work Phone: Start: 07-03-2024 End: 07-03-2024 ambulatory Bela Roberson NP Facility:[facility] Start: 06-29-2024 End: 06-29-[address] Abran Yanes MD -[facility] Work Phone: Start: 06-29-2024 End: 06-29-2024 ambulatory Abran Yanes Facility:[facility] Start: 06-12-2024 End: 06-18-2024 ambulatory Dash Prabhakar Facility:[facility] Start: 06-03-2024 End: 06-03-2024 ambulatory Abranleigh Yanes Facility:[facility] Start: 05-27-2024 End: 05-27-2024 ambulatory Gentry Manzo Facility:[facility] Start: 05-20-2024 End: 05-20-2024 ambulatory Arban Yanes Facility:[facility] Start: 05-18-2024 End: 05-18-2024 ambulatory Miami Aki Facility:[facility] Start: 05-13-2024 End: 05-13-2024 ambulatory Gentry Manzo Facility:[facility] Start: 05-04-2024 End: 05-05-2024 ambulatory [place] Aki Facility:[facility] Start: 04-30-2024 End: 04-30-2024 ambulatory Abranleigh Yanes Facility:[facility] Start: 04-28-2024 ambulatory [place] Aki Facility:[facility] Start: 04-26-2024 End: 04-26-2024 ambulatory Liliya Ballard Facility:[facility] Start: 04-26-2024 End: 04-28-2024 Evaluation and management of inpatient Abrna Yanes Facility:[facility] Start: 04-26-2024 ambulatory Abran Yanes Facility :[facility] Start: 09-26-2023 End: 09-26-[address] Abran Yanes Work Phone: [facility] Work Phone: Start: 09-26-2023 End: 09-26-[address] Abran Yanes Work Phone: [facility]-Outpatient Breast Imaging Work Phone: Start: 08-09-2023 End: 08-09-[address] Abran Yanes Work Phone: [facility] Work Phone: Start: 08-09-2023 End: 08-09-[address] Abran Yanes Work Phone: [facility]-Physical Therapy Work Phone: Start: 07-26-[address] Abran Yanes Work Phone: [facility]-Physical Therapy Work Phone: Start: 07-23-2023 End: 07-23-[address] Abran Yanes Work Phone: [facility] Work Phone: Start: 07-23-2023 End: 07-23-[address] Abran Yanes Work Phone: [facility]-Laboratory, Specimen Work Phone: Start: 07-23-2023 End: 07-23-[address] Abran Yanes Work Phone: [facility] Work Phone: Start: 06-13-2023 End: 06-13-[address] Abran Yanes Work Phone: [facility] Work Phone: Start: 05-21-2023 End: 05-21-[address] Abran Yanes Work Phone: [facility]-Laboratory Work Phone: Start: 05-13-2023 End: 05-13-[address] Abran Yanes Work Phone: [facility] Work Phone: Start: 10-08-2022 End: 10-08-2022 Emergency department patient visit Dr. Srinivas Jacobs Work Phone: [facility]-Emergency Department Start: 09-21-2022 End: 09-21-[address] Abran Yanes Work Phone: [facility] Work Phone: Start: 09-21-2022 End: 09-21-[address] Abran Yanes Work Phone: [facility]-Outpatient Breast Imaging Start: 08-06-2022 End: 08-06-[address] Abran Yanes Work Phone: [facility] Start: 06-04-2022 End: 06-04-[address] Abran Yanes Work Phone: [facility] Start: 05-07-2022 End: 05-07-[address] Srinivas Jacobs Work Phone: [facility] Work Phone: Start: 05-07-2022 End: 05-07-[address] Srinivas Jacobs Work Phone: [facility]-Laboratory Start: 05-03-2022 End: 05-03-[address] Srinivas Jacobs Work Phone: [facility] Start: 03-07-2022 End: 03-07-[address] Srinivas Jacobs Work Phone: [facility] Start: 02-28-2022 Non-patient / Non-visit Dr. Gregory Jacobs Work Phone: [facility] Start: 02-28-2022 End: 02-28-[address] Srinivas Jacobs Work Phone: [facility]-Cardiovascular Services Start: 02-07-2022 End: 02-07-[address] Srinivas Jacobs Work Phone: [facility] Start: 09-11-2021 End: 09-12-2021 ambulatory PATRICIO DUENAS [facility] Start: 09-05-2021 End: 09-05-[address] SELVIN BEARD [facility] Start: 08-30-2021 End: 08-30-2021 ambulatory PATRICIO DUENAS [facility] Start: 07-18-2021 End: 07-18-2021 ambulatory PATRICIO DUENAS [facility] Start: 04-10-2021 End: 04-11-2021 ambulatory PATRICIO DUENAS [facility] Start: 03-22-2021 End: 03-22-2021 ambulatory PATRICIO DUENAS [facility] Start: 03-13-[address] Tati Jacobs Work Phone: [facility] Start: 01-27-2021 End: 01-27-2021 ambulatory PATRICIOJOSE DUENAS [facility] Procedures Date Procedure Procedure Detail Performing Clinician Start: 10-12-2024 Screening mammography Ruben Yanes MD Work Phone: Start: 09-26-2023 Screening mammography Ruben Yanes Work Phone: Start: 07-23-[address] Abran Yanes Work Phone: Start: 09-21-2022 Screening mammography Ruben Yanes Work Phone: Start: 02-28-2022 Radionuclide imaging of perfusion of myocardium under exercise stress Dr. Srinivas Jacobs Work Phone: Start: 06-26-2012 Colonoscopy Candice Carter PA-C Work Phone: History of operative procedure on knee History of left knee replacement Dr. Srinivas Jacobs Work Phone: Comment on above: 2021 Plan of Treatment Date Care Activity Detail Author Start: 10-08-2032 Urine microalbumin profile DTaP,Tdap,Td Vaccine (2 - Td or Tdap) [facility] Start: 2026 RSV Vaccine (1 - 1-dose 75+ series) RSV Vaccine (1 - 1-dose 75+ series) [facility] Start: 09-01-2024 End: 09-01-2024 ambulatory 09/01/2024 7:00 AM [facility] G[facility] [address] [id number] Julius Magallanes MD [address] [place] [address] Recurrent Clostridioides difficile infection [A49.8] Gastroenterology Comment on above: Recurrent Clostridioides difficile infec tion [A49.8] Start: 08-19-2024 Advance Directive Discussion Advance Directive Discussion [facility] Start: 04-19-2024 Covid-19 Vaccine () Covid-19 Vaccine () [facility] Start: 08-19-2023 Advance Directive Discussion Advance Directive Discussion [facility] Start: 10-01-2020 Pneumococcal Vaccine: 50+ (2 of 2 - PCV) Pneumococcal Vaccine: 50+ (2 of 2 - PCV) [facility] Start: 10-01-2020 Pneumococcal Vaccine: 65+ (2 of 2 - PCV) Pneumococcal Vaccine: 65+ (2 of 2 - PCV) [facility] Start: 06-26-2017 Screening for malignant neoplasm of colon [facility] Start: 2016 Screening for osteoporosis Bone Density Screening [facility] Start: 11-09-2013 Diabetes Screening Diabetes Screening [facility] Start: 08-29-2011 Screening for malignant neoplasm of breast Mammogram Screening [facility] Start: 2001 Shingrix Vaccine (1 of 2) Shingrix Vaccine (1 of 2) [facility] Start: 1996 Lipid panel Lipid Screening [facility] Start: 1996 Screening for malignant neoplasm of colon [facility] Start: 1968 Annual PCP Team Chronic Disease Visit Annual PCP Team Chronic Disease Visit [facility] Start: 1969 Anxiety Screening Anxiety Screening [facility] Start: 1969 BP Controlled (<130/80) BP Controlled (<130/80) [facility] Start: 1969 Depression Screening Depression Screening [facility] Start: 1969 Hepatitis C screening Hepatitis C Screening [facility] CBC W Auto Differential panel - Blood [facility] Clostridioides difficile toxin genes [Presence] in Stool by BRETT with probe detection CLOSTRIDIUM DIFFICILE TOXIN BY PCR Lab Routine Recurrent Clostridioides difficile infection Ordered: 09/01/2024 [facility] Work Phone: Comment on above: Ordered: 09/01/2024 Comprehensive metabolic 2000 panel - Serum or Plasma [facility] Glucose [Mass/volume ] in Serum or Plasma [facility] Hemoglobin A1c/Hemoglobin.total in Blood [facility] Lipid 1996 panel - Serum or Plasma [facility] Magnesium measurement [facility] Patient Education ED Laceration, Hand: All Closures [facility] Work Phone: Patient referral [facility] Work Phone: Serum insulin measurement [facility] T4 free measurement [facility] Thyroid stimulating hormone measurement [facility] Triiodothyronine, fr ee measurement [facility] Vitamin B12 measurement [facility] Vitamin D, 25-hydrox y measurement [facility] Immunizations Immunization Date Immunization Notes Care Provider [facility] 06-29-2024 Seasonal trivalent influenza vaccine, adjuvanted, preservative free Dr. Abran Yanes MD Work Phone: [facility] 05-13-2023 influenza, injectabl e, quadrivalent, preservative free Dr. Abran Yanes Work Phone: [facility] 10-08-2022 tetanus toxoid, redu kevin diphtheria toxoid, and acellular pertussis vaccine, adsorbed Dr. Srinivas Jacobs Work Phone: [facility] 06-04-2022 influenza, injectabl e, quadrivalent, preservative free Dr. Abran Yanes Work Phone: [facility] 06-04-2022 influenza, seasonal, injectable Dr. Abran Yanes Work Phone: [facility] 07-05-2021 Covid (Moderna) Dr. Tommy Jacobs Work Phone: [facility] 11-02-2020 Covid (Moderna) Dr. Tommy Jacobs Work Phone: [facility] 10-05-2020 Covid (Moderna) Dr. Tommy Jacobs Work Phone: [facility] 05-25-2020 influenza injectabl e, quadrivalent, preservative free Dr. Abran Yanes Work Phone: [facility] 05-25-2020 influenza, seasonal, injectable Dr. Srinivas Jacobs Work Phone: [facility] 10-01-2019 pneumococcal polysaccharide vaccine, [address] Srinivas Jacobs Work Phone: [facility] 06-23-[address] Srinivas Jacobs Work Phone: [facility] Payers Date Payer Category Payer Self-pay [id number] 2016 Medicare MEDICARE MEDICAR E A AND B [id number] 2016-Present [phone] [address] [address] [place] [address] Medicare [id number] 2016 Private Health Insurance HUMANA HUMANA MEDICARE SUPPLEMENT [id number] 2016-Present [phone] [address] [address] [place] [address] Indemnity [id number] 2016 Medicare [id number] 2016 Private Health Insurance [id number] 1950 Unknown [id number] 2.16.840.1.967068.3.579 .2.651 1950 Unknown [id number] 2.16.840.1.299772.3.579 .2.651 1950 Unknown [id number] 2.16.840.1.136958.3.579 .2.65 1950 Unknown [id number] 2.16.840.1.390956.3.579 .2.651 1950 Unknown [id number] 2.16.840.1.421325.3.579 .2.651 1950 Unknown [id number] 2..840.1.334584.3.579 .2.651 1950 Unknown [id number] 2.840.1.089969.3.579 .2.651 Unknown [id number] 2.840.1.767683.3.579 .2.462 Unknown [id number] 2.840.1.221638.3.579 .2.462 Unknown [id number] 2.840.1.697293.3.579 .2.462 Unknown [id number] 2.840.1.096486.3.579 .2.462 Unknown [id number] 2.840.1.272969.3.579 .2.462 Unknown [id number] 2.840.1.336786.3.579 .2.462 Unknown [id number] 2.840.1.940243.3.579 .2.462 Unknown [id number] .840.1.330687.3.579 .2.462 Unknown [id number] .840.1.467625.3.579 .2.462 Unknown [id number] 2.840.1.634816.3.579 .2.462 Unknown [id number] 2.840.1.793297.3.579 .2.462 Unknown [id number] .840.1.311333.3.579 .2.462 Unknown [id number] .840.1.142317.3.579 .2.462 Unknown [id number] 2.840.1.669875.3.579 .2.462 Unknown [id number] 2.840.1.221654.3.579 .2.462 Unknown [id number] 2.840.1.293986.3.579 .2.462 Unknown [id number] 2.16.840.1.005962.3.579 .2.462 Unknown [id number] 2.16.840.1.217668.3.579 .2.462 Unknown [id number] 2.16.840.1.132345.3.579 .2.462 Unknown [id number] 2.16.840.1.162400.3.579 .2.462 Unknown [id number] 2.16.840.1.482702.3.579 .2.462 Unknown [id number] 2.16.840.1.434748.3.579 .2.462 Unknown [id number] 2.16.840.1.575783.3.579 .2.462 Unknown [id number] 2.16.840.1.975448.3.579 .2.462 Unknown [id number] 2.16840.1.492592.3.579 .2.462 Unknown [id number] 2.16.840.1.957237.3.579 .2.462 Social History Date Type Detail Facility Start: 02-07-2022 End: 07-23-2023 Tobacco smoking status FLIS Unknown if ever smoked [facility] Start: 1950 Sex Assigned At Female [facility] Start: 03-27-2015 Occasional [facility] Start: 03-27-2015 None [facility] Start: 03-27-2015 Spouse/ Signif icant Other [facility] Start: 03-27-2015 Non-smoker [facility] Start: 05-05-2024 End: 07-20-2024 Tobacco smoking status NHIS Never smoked tobacco [facility] Start: 07-20-2024 Tobacco use and exposure Smokeless tobacco non-user [facility] Start: 07-20-2024 Alcoholic beverage intake Current drinker of alcohol (finding) [facility] Start: 07-20-2024 History of Social function [facility] Start: 07-20-2024 Tobacco use panel [facility] National Score (1-100), lower number is lower risk 60 [facility] Start: 1950 Sex assigned at Not on file [facility] Start: 10-22-2024 Sex Female (finding) [facility] Medical Equipment Procedure Code Equipment Code Equipment Origin al Text Equipment Identifier Dates Mesh Srg Gynmsh 6x4in Pelv - [id number] Start: 11-08-2010 Clinical Notes 04-11-2021 to 03-31-2025 Note Date & Type Note Facility 03-31-2025 Evaluation note Diagnosis Onset Date Resolution Takotsubo cardiomyopathy acute March 31, 2025 2:27pm Atherosclerosis of coronary artery of resighini heart without angina pectoris chronic March 31 2:27pm Hyperlipidemia chronic March 2:27pm Hypertension chronic March 31, 2025 2:27pm [employer] Work Phone: [phone] Instructions* Patient Instructions* Julius Magallanes MD - 09/01/2024 7:15 AM EST The patient will stop her every other day vancomycin today. If the diarrhea or altered stool recurs, 3 days later the patient will get a C. difficile test orders have been placed. I have put in orders for Vowst but the patient is aware that this will not be approved unless she has a positive C. difficile stool study. The office will reach out to the patient after her C. difficile stool study. [facility] History of Present illness Narrative* Julius Magallanes MD - 09/01/2024 7:00 AM EST Images from the original note were not included. DEPARTMENT OF GASTROENTEROLOGY - NEW PATIENT/CONSULT REASON FOR VISIT Romero Gray is a 74 year old female who is scheduled at the request of Candice Carter for Diarrhea. My final recommendations will be communicated back to the requesting physician by the way of the shared medical record, fax, or via US Mail HISTORY OF PRESENT ILLNESS Romero Gray is a 74 year old female [...] SURGICAL HISTORY Procedure Laterality Date COLONOSCOPY 03/2021 [facility] COLONOSCOPY FLX DX W/COLLJ SPEC WHEN PFRMD 08/06/2007 [facility] COLONOSCOPY FLX DX W/COLLJ SPEC WHEN PFRMD 06/26/2012 Colonoscopy repeat 5 y ears DILATION & CURETTAGE DX&/THER NONOBSTETRIC Dilation & curettage LAPS ABD PRTM&OMENTUM DX W/WO SPEC BR/WA SPX Laparoscopy Lysis of adhesions LIG/TRNSXJ FLP TUBE ABDL/VAG APPR UNI/BI Tubal ligation PAST SURGICAL HISTORY OF FOOT SURGERY PAST SURGICAL HISTORY OF 06/19/2007 foot surgery TOTAL KNEE REPLACEMENT Bilateral 03/2021 VAGINAL HYSTERECTOMY UTERUS 250 GM/< 09/13/2005 Hysterectomy, vaginal/ A&P REPAIR Current Outpatient Medications Medication Sig Dispense [...] diarrhea returns to get a repeat C. difficileassay. At that point we will suggest beginning Vowst. She is aware that if she is having diarrhea and it is recurrent she will have to go on a repeat course of Vanco and then stop the Vanco after 2 weeks wait 3 to 4 days and then take the Vowst. Will be in contact with the patient. PLAN above Julius Magallanes MD Answers submitted by the patient [...] or see stool floating with oil: No documented in this encounterPrem[facility]01-14-2025 NoteHNO ID: [id number] Author: JULIUS MAGALLANES MD Service: ? Author Type: Physician Type: Progress Notes Filed: 09/02/2024 09:09 Note Text: DEPARTMENT OF GASTROENTEROLOGY - NEW PATIENT/CONSULT REASON FOR VISIT Romero Gray is a 74 year old female who is scheduled at the request of Candice Carter for Diarrhea. My final recommendations will be communicated back to the requesting physician by the way of the shared medical record, fax, or via US Mail HISTORY OF PRESENT ILLNESS Romero Gray is a 74 year old female [...] SURGICAL HISTORY Procedure Laterality Date COLONOSCOPY 03/2021 [facility] COLONOSCOPY FLX DX W/COLLJ SPEC WHEN PFRMD 08/06/2007 [facility] COLONOSCOPY FLX DX W/COLLJ SPEC WHEN PFRMD [...] in contact with the patient. PLAN above Julius Magallanes MD Answers submitted by the patient for this visit: Review of [facility] (Submitted on 08/25/2024) Fever: No Chills: No Night Sweats: No Unitentional Weight Change: No A Cough: No Difficulty Breathing: No Chest Pain: No (more content not included)...[facility] 07-22-2024 Telephone encounter Note* Telephone Encounter - Herber Chan MA - 07/22/2024 9:23 AM EST Pt states the Dific[place] to really expensive and she would like to apply for assistance. Contacted pt and advised we will need for her to stop into the office to sign some paperwork and bring proof of income. We will also need the total gross household income. Herber Chan MA [facility]12-04-2024 Miscellaneous Notes* Telephone Encounter - Herber Chan MA - 07/22/2024 9:23 AM EST Pt states the Dificid to really expensive and she would like to apply for assistance. Contacted pt and advised we will need for her to stop into the office to sign some paperwork and bring proof of income. We will also need the total gross household income. Herber Chan MA documented in this encounterPremier [facility]12-02-2024 NoteHNO ID: [id number] Author: CANDICE CARTER PA-C Service: ? Author Type: Physician Manager Dairy Type: Progress Notes Filed: 07/20/2024 11:48 Note Text: CHIEF COMPLAINT: Patient presents with: Recurrent C Diff : 3 times since January This consult was requested by Abran Yanes MD for an opinion regarding recurrent C diff. My final recommendations will be communicated to the requesting health care provider by way of the shared medical record for internal providers or letter via the [employer] for external providers. HPI: Romero Gray is a 74 year old female [...] SURGICAL HISTORY Procedure Laterality Date COLONOSCOPY 03/2021 [facility] COLONOSCOPY FLX DX W/COLLJ SPEC WHEN PFRMD 08/06/2007 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 CHIEF COMPLAINT: Patient presents with: Recurrent C Diff : 3 times since January This consult was requested by Abran Yanes MD for an opinion regarding recurrent C diff. My final recommendations will be communicated to the requesting health care provider by way of the shared medical record for internal providers or letter via the [employer] for external p mingo. HPI: Romero Gray is a 74 year old female [...] weeks. States she is getting stool tested eachtime before restarting Vancomycin however I do not [...] SURGICAL HISTORY Procedure Laterality Date COLONOSCOPY 03/2021 [facility] COLONOSCOPY FLX DX W/COLLJ SPEC WHEN PFRMD 08/06/2007 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 Physical Exam Constitutional: Appearance: Normal appearance. HENT: [...] is not something she should be on rodent exterminator. Would like her to stop this. If [...] mouth two times a day. Dispense: 10 tablet;Refill: 0 Follow up in office PRN. Recommended to please call office/go to ER if fever, chills, chest pain, SOB, diarrhea, nausea, emesis, worsening abdominal pain, dehydration occurs I spent a total of 20 minutes on the date of the service which included preparing to see the patient, [id number] patient care, completing clinical documentation, obtaining and/or reviewing separately obtained history, performing a medically appropriate examination, counseling and educating the pat ient/family/caregiver, and ordering medications, tests, or procedures. Candice Carter PA-C July 20, 2024 11:45 AM documented in this encounterPremier Health11-11-2024 Evaluation note* Diagnosis Onset Date Resolution Status Admit Date Flu vaccine need acute June 29, 2024 2:12pm Takotsubo cardiomyopathy acute July 28, 2024 3:53pm Atherosclerosis of coronary artery of resighini heart without angina pectoris chronic July 28, 024 3:53pm Hyperlipidemia chronic July 192023 3:53pm Hypertension chronic July 3:53pm [facility] Work Phone: 1(495) 880-749009-10-2024 [facility] Medical Records Department [address] [place] [address] Discharge Summary 04/28/24 1031 MR#: [id number] Acct: [id number] Name: ROMERO GRAY Rep #: [id number] : 1950 74 From: Beatris Atkins MD PCP: Dr. Abran Yanes MD Status:DIS IN Location: [place] [address] Providers Date of Admission: 04/26/24 Date of Discharge: 04/28/24 Primary Care Physician: Dr. Abran Yanes MD Consultations 04/26/24 23:05 Consult: Cardiology Routine Consulting Provider: Dash Prabhakar Reason for Consult: Chest Pain, NSTEMI EMERGENT Consult: No MD Notified: Yes Date Notified: 04/26/24 Time Notified: 21:27 Method of Notification: ED Physician Initiated Reason For Visit: NSTEMI Diagnosis Discharge Diagnosis (1) Takotsubo cardiomyopathy: Status: Acute Code(s): I51.81 - Takotsubo syndrome Plan # NSTEMI type II secondary to Takotsubo cardiomyopathy #Hypothyroidism # Hypertension # History of insomnia Medications at Discharge Home Medications aspirin 81 mg chewable tablet 81 mg PO DAILY@0800 ##90 07/26/17 cholecalciferol (vitamin D3) 125 mcg (5,000 unit) tablet 125 mcg PO DAILY 07/04/21 atorvastatin 20 mg tablet 20 mg PO QHS #90 tabs 05/13/23 levothyroxine 75 mcg tablet 75 mcg PO DAILY #90 tabs 09/11/23 lisinopril 20 mg-hydrochlorothiazide 12.5 mg tablet 0.5 tab PO DAILY #90 tabs 11/28/23 trazodone 50 mg tablet 50 mg PO QHS PRN insomnia 01/07/24 estradiol 0.01% (0.1 mg/gram) vaginal cream 1 g vaginal .COMPLEX 01/12/24 psyllium husk 0.52 gram capsule (Daily Fiber) 0.52 g PO DAILY bm 01/12/24 vitamin B complex (Complex B-100 tablet,extended release) 1 tab PO DAILY 01/12/24 carvedilol 3.125 mg tablet 3.125 mg PO BIDCM 30 days #60 tabs 04/28/24 Hospital Course Summary of Care Provided Minutes Spent on Discharge: 31 Hospital Course: 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 difficile colitis, Hx NSTEMI w/ normal appearing cardiac catheterization felt secondary to vasospasms who presents to the [facility] ED on 04/26/24 with chest discomfort starting approximately 30 minutes prior to ED arrival. She had nonspecific EKG changes and had a troponin of 567 that increased over 12,000. She was given aspirin and started on heparin drip and cardiology consulted. Underwent cardiac cath 04/27 with no significant atherosclerotic disease but found to have Takotsubo cardiomyopathy. Beta-karma changed to carvedilol, patient stabilized and had no further symptoms. Discussed with cardiology, patient stable and okay for discharge on carvedilol and other current medications and follow-up outpatient. On day of discharge patient with no new or acute complaints. Overall feeling well. Discharge instructions as followed: -Your metoprolol's been discontinued and he will instead be taking carvedilol, please continue other home medications -You will need to follow-up with cardiology upon discharge, please call the office upon discharge to schedule your hospital follow-up appointment ) -Please take your medications as prescribed, do not skip doses -Check your incisions every day for signs of infection which would include redness, swelling, leaking. It is normal to have a small bruise or bump where the catheter was placed but a bruise that is getting larger is not normal. Please tell your healthcare team about this. Please proceed to the emergency department if you have uncontrollable bleeding from the site. -Okay to shower from the day after your heart catheterization but keep your incision site clean and dry -Recommend less than 3 g of sodium and less than 2 L of fluids daily. -Please call your primary care provider's office upon discharge to schedule a hospital follow up within 1 week. -For any concerning signs or symptoms please call 911 or proceed to the nearest emergency department Physical Exam Narrative General: Alert, oriented, no apparent distress HEENT: Atraumatic, normocephalic Eyes: Anicteric, normal conjunctiva, extraocular movements grossly intact Neck: Supple Respiratory: Clear to auscultation bilaterally, normal respiratory effort Cardiovascular: Regular rate and rhythm GI: Soft, nontender, nondistended Extremities: No edema Musculoskeletal: Moving all extremities Neuro: No overt focal neurological deficits Skin: No rashes appreciated Psych: Cooperative Weight / BMI Weight Weight: 91.1 kg Body Mass Index (BMI) 33.4 ABG / Lab / Microbiology Data 04/28/24 05:41 04/28/24 05:41 Laboratory: Laboratory Results - last 24 hr 04/28/24 05:41: WBC 8.1, RBC 4.00 L, Hgb 13.1, Hct 39.1, MCV 97.8, MCH 32.8 H, MCHC 33.5, RDW Std Deviation 53.2 H, RDW Coeff of Tory 14.6, P (more content not included)...[facility]12-22-2023 Discharge summary Author Julio César Martínez [facility] August 09, 2023 11:06am Note Date/Time August 09, 2023 11:07am [facility] Physical Therapy [facility] [address] [place] [address]. [address] [place] [address] / REHABILITATION SERVICES DISCHARGE SUMMARY MR#: [id number] Acct: [id number] Name: ROMERO GRAY Rep #: [id number] : 1950 73 From: Julio César Martínez PT, ATC Referring Dr.: Dr. Patricio Duenas MD Status: REG RCR Insurance: MEDICARE PART A B [employer] Discharge Summary D/C summary: It has been my pleasure to treat ROMERO GRAY referred by Dr. Patricio Duenas MD, with the diagnosis of B hip pain for a total of 8 visit(s). Discharge Date: Please see the following information for a summary of their discharge status. Subjective Subjective: its a lot better than it was Pain L hamstring: Pain Intensity (Out of 10): 0 R hip: Pain Intensity (Out of 10): 0 Overall Improvement % Improvement: 90 Objective Objective/Function: Pt reports no pain right now. MMT: L knee flex= 32 #F L hamstring has a 30 degree lag Pt is I with HEP Goals Goal 1:: Decrease L hamstring pain and R hip pain x 50% to aid with sleep Goal Progress: Goal Met Goal 2:: Increase L hamstring flexibility x 20 degrees to aid with decreasing pain Goal Progress: Goal Met Goal 3:: Increase L hamstring strength x 5 #F to aid with stair negotiation Goal Progress: Goal Met Goal 4:: I with HEP Goal Progress: Goal Met Plan Plan: R ITBand- stretching, stick roll out, DTR, core stab ex's, R hip strengthening L hamstring- stretching, stick rollout, DTR, core stab ex's, L hamsting strengthening D/C Information d/c sentence: If there are questions or concerns regarding this patient's physical therapy, please feel free to call me at [phone]. Thank you for the referral of thispatient. Sincerely, Julio César Martínez, PT, ATC Balance/Gait/Functional tests Balance/Special Test Scores Lower Extremity Functional Score: 57 Improvement % Improvement: 90 <Electronically signed by Julio César Martínez PT, ATC> 08/09/23 1106 CC: Dr. Abran Yanes MD; Dr. Patricio Duenas MD ~ [facility] Signed [facility] Work Phone: 1(220) 332-694202-15-2022 [facility] NAME ACCOUNT SEX AGE ADMIT DISCHARGE PT MED. RECORD# NUMBER DATE DATE TYPE ROSAIRO [id number] Kandi 71 09/11/2021 Rehana ROMERO Taylor [id number] ROOM: [facility] DATE OF : 1950 DICTATING PHYSICIAN: Dale Willett DATE OF CONSULTATION: September 11, 2021 CONSULTING PHYSICIAN: Dr. Patricio Duenas. REASON FOR CONSULTATION: Postoperative management. HISTORY OF PRESENT ILLNESS: This is a 71-year-old healthy lady with a history of osteoarthritis. The patient had progressive pain in her left knee over the last 10 years, which got worse, and eventually she presented for knee replacement after she failed conservative therapy. She did have a previous right knee replacement in the past. The patient underwent surgery and did very well. The patient denied any chest pain, shortness of breath, or cough. Her surgical area still does not have significant pain so far. PAST MEDICAL HISTORY: Remarkable for (1) History of vasospastic SC. (2) Spastic coronary artery disease. (3) Hypertension. (4) Hypothyroidism. (5) Thyroid disease. (6) Right knee replacement. (7) Bilateral surgery on both legs. (8) Hysterectomy. (9) Cholecystectomy. CURRENT MEDICATIONS: The patient is currently on (1) Alendronate 35 mg weekly. (2) Aspirin 81 mg daily. (3) Atorvastatin 20 mg daily. (4) Docusate 1 tablet daily. (5) Famotidine 20 mg daily. (6) Zolpidem 5 mg at bedtime. (7) Vitamin D 5000 units daily. (8) Trazodone 50 mg at bedtime. (9) The patient also takes lisinopril/hydrochlorothiazide combination 20/12.5 daily. (10) She is on Metamucil 15 mL daily. (11) Metoprolol 25 mg she takes half of a tablet twice daily. This list of medications is per the medication reconciliation sheet. FAMILY HISTORY: Both parents are , both of them lived to their 90s. Father from a broken heart after his 's . Mother from complications of gallbladder disease. Page 1 of 2 ROMERO GRAY Forensic Investigator Report ROMERO GRAY : 1950 SOCIAL HISTORY: The patient does not smoke or drink. She is retired. REVIEW OF SYSTEMS: The patient denied fever or chills or night sweats. No headache, blurry vision, earache, or sore throat. No neck pain. No chest pain, shortness of breath, cough. No nausea or vomiting, abdominal pain, diarrhea, constipation, difficulty with urination, increased frequency or burning. No skin rashes. PHYSICAL EXAMINATION: GENERAL APPEARANCE: This is a 71-year-old pleasant lady lying in bed. VITAL SIGNS: Blood pressure 119/71, respiratory rate 18, heart rate 51, temperature 97. HEENT: Normocephalic and atraumatic. Pupils round, equal, and reactive. Tongue to midline. NECK: Neck is supple. LUNGS: Lungs are clear. HEART: The heart was regular. No gallop or murmur. ABDOMEN: Soft. EXTREMITIES: Extremities revealed the left knee in a surgical dressing. ASSESSMENT: 1. Progressive osteoarthritis status post left knee replacement, appeared to be doing fairly well. 2. Hypertension, controlled. 3. Coronary artery disease, spastic and asymptomatic at this point. 4. Hypercholesterolemia on treatment. RECOMMENDATIONS: Continue current medications. From my point of view, I did recommend to her the importance of using incentive spirometry. She is on deep venous thrombosis prophylaxis, as well as pain control. We will continue treatment for insomnia and acid reflux as outlined above. Dictated By: Dale Willett MD 09/11/2021 15:59 JOB #: [id number] Transcribed By: am 09/11/2021 18:02 Electronically signed by: E-Sign: DALE WILLETT MD 10/03/21 11:02 Page 2 of 2 ROMERO GRAY Forensic [facility]igator [facility] SUMMARY NAME ACCOUNT SEX AGE ADMIT DISCHARGE PT MED. RECORD# NUMBER DATE DATE TYPE ROMERO GRAY [id number] F 71 09/11/21 2 M [id number] ROOM: [facility] DATE OF : 1950 ATTENDING PHYSICIAN: Lachelle Martínez PROGRESS NOTE/DISCHARGE SUMMARY ATTENDING ORTHOPEDIC PHYSICIAN: Dr. Patricio Duenas. DATE OF ADMISSION: September 11, 2021 ESTIMATED DATE OF DISCHARGE: September 12, 2021 ADMITTING DIAGNOSES: 1. Left knee primary osteoarthritis. 2. Obesity. 3. Hypertension. 4. Thyroid disease. 5. Hyperlipidemia. 6. History of myocardial infarction. 7. Psoriasis. 8. Diverticulosis. FINAL DIAGNOSES: 1. Left knee primary osteoarthritis, status post left total knee arthroplasty. 2. Obesity. 3. Hypertension. 4. Thyroid disease. 5. Hyperlipidemia. 6. History of myocardial infarction. 7. Psoriasis. 8. Diverticulosis. HOSPITAL COURSE: The patient has an ongoing history of left knee pain. After failing conservative measures, the patient opted to proceed with a left total knee replacement and underwent the above-stated procedure yesterday. Intraoperatively was uneventful. She was transferred to the third floor at [facility]. She got up with physical therapy. The pain in the left knee has been fairly well controlled. She currently denies chest pain, shortness of breath, dizziness, or calf pain. She is anticipating a discharge to home later today with outpatient physical therapy. PHYSICAL EXAMINATION: Vitals: Temperature is 98, pulse 64, respirations 16, blood Page 1 of 2 ROMERO GRAY Discharge Summary ROMERO GRAY : 1950 pressure 132/77, and spO2 of 95% on room air. The patient is alert and oriented x3, in no acute distress at rest, breathing easily without respiratory distress. Inspection of the left knee reveals a waterproof dressing intact without active drainage, erythema, warmth or signs of infection. Negative Homans bilaterally without signs of DVT. Pedal pulses are present and equal bilaterally. Sensation is intact to light touch of the bilateral lower extremities. The patient is able to actively plantar and dorsiflex the bilateral feet against resistance. Neurovascularly intact. DIAGNOSTIC DATA: Postoperative x-rays were reviewed and are consistent with a cemented left total knee replacement. The prostheses are in good position without evidence of hardware failure or loosening. Skin lety are intact over the surgical site. CBC results and BMP results are not yet posted but have been collected. I will review them upon processing. ASSESSMENT/PLAN: 1. Status post left total knee arthroplasty, postoperative day #1. 2. Continue Oramorph 15 mg one p.o. b.i.d. and Percocet one or two p.o. every 4 hours p.r.n. pain. 3. Deep venous thrombosis prophylaxis with bilateral TEDs, SCDs and aspirin 81 mg twice daily for one month postoperative. 4. Begin PT/OT and weightbearing as tolerated on the left lower extremity with a walker. 5. Encouraged incentive spirometry. 6. Continue postoperative medical management per Dr. Willett. 7. Continue discharge planning with case management. 8. The patient is orthopedically stable and okay for discharge to home today if cleared medically, having adequate pain control, and doing well with physical therapy. We will plan for discharge with outpatient physical therapy. She already has an appointment arranged for . She will follow up with myself in 2 weeks for reassessment, x-rays, and staple removal. Dictated By: Lachelle Martínez PA-C 09/12/21 07:40 JOB #: [id number] Transcribed By: courtney 09/12/21 08:52 Electronically signed by: E-sign Lachelle DEL ANGEL 09/26/21 07:44 Page 2 of 2 ROMERO GRAY [facility]21 [facility] SUMMARY NAME ACCOUNT SEX AGE ADMIT DISCHARGE PT MED. RECORD# NUMBER DATE DATE TYPE ROMERO GRAY [id number] F 70 04/10/21 2 Taylor [id number] ROOM: [facility] DATE OF : 1950 ATTENDING PHYSICIAN: Patricio Duenas PROGRESS NOTE/DISCHARGE SUMMARY CHIEF COMPLAINT: Right knee replacement. FINAL DIAGNOSES: 1. Right knee replacement for arthritis. 2. Hypertension. 3. Thyroid disease. 4. High cholesterol. 5. History of myocardial infarction. PROCEDURE: Right total knee replacement on April 10, 2021. PHYSICAL EXAMINATION: She has been afebrile. Vital signs are stable. She is lying in bed comfortably. She is speaking in full sentences. She has right knee motion from 0 to 85 degrees. Her Mepilex bandage is on, clean and dry. No blood on it. No calf pain or swelling bilaterally. Negative Homans sign bilaterally. Good active motion of the toes and ankles. The knee is clinically well aligned and stable. No signs of infection or blood clots. DIAGNOSTIC DATA: X-rays, AP and lateral, of the right knee show a cemented ConforMIS total knee replacement in good position without obvious loosening, failure or fracture. Her laboratory work shows a white count of 8.5, hemoglobin 12.6, and platelet count 173,000. Laboratory work was fully reviewed. HOSPITAL COURSE: The patient is postoperative day #1 from right total knee replacement. She is feeling well. She denies chest pain. She denies shortness of breath. No productive cough. She is planning on discharge to home today. She is comfortable currently. She is yet to have therapy. DISCHARGE INSTRUCTIONS/PLAN: Treatment options were discussed with the patient at length. We will continue her on her preoperative medications. She will use aspirin 81 mg twice a day for DVT prevention. We will use appropriate narcotic pain medication for her postoperative pain. She will be discharged to home today. She will do outpatient therapy as her desire. She will follow up in the office. All of her questions Page 1 of 2 ROMERO GRAY Discharge Summary ROMERO GRAY : 1950 were answered. Dictated By: Patricio Duenas MD 04/11/21 07:15 JOB #: [id number] Transcribed By: courtney 04/11/21 08:15 Electronically signed by: E-SIGN DR. PATRICIO DUENAS M.D. 04/11/21 12:29 Page 2 of 2 ROMERO GRAY [facility] summary Author Dr. Rowell [facility] October 08, 2022 10:56am Note Date/Time October 08, 2022 10:18am [facility] Medical Records Department [address] [place] [id number] Emergency Department Summary 10/08/22 MR#: [id number] Acct: [id number] Name: BROCKTERESOSusanne Vazquez Rep #:[id number] : 1950 72 From: Kaz Rowell MD PCP: Dr. Abran Yanes MD Status:REG ER Location: ED HPI History of Present Illness Chief Complaint: Laceration Detail of Chief Complaint: Partial amputation distal radial side left index finger Informant: patient Occured/Mechanism Mechanism/Context: Yes blunt trauma Comment: Patient was using lainey and accidentally cut the tip of her left indexfinger Onset/Context/Timing Context: Sudden Onset Timing: Continuous Quality of Pain: - (Patient is experiencing no pain presently) Location: Distal radial side left index finger involving the nailbed Current Severity: Mild Maximum Severity: Moderate Worsened by: Initial injury Relieved by: Nothing Associated Symptoms Associated Symptoms: Negative for Parasthesia, Weakness or Loss of Funtion Narrative Narrative: Patient is a 72-year-old oorcs-hygl-cptifgkh woman who presents with laceration to the left index finger. She is on a baby aspirin at today. She is not on anyother antithrombotic medication or anticoagulant. She denies paresthesia, anesthesia medics. She states her last tetanus shot was greater than 11 years ago. She denies any pain at this time. Tetanus Immunization: >10 years Prior similar symptoms: No Recent Illness/Hospitalization: No PFSH PFSH Medical History Abnormal CT of the abdomen Arthritis Atherosclerosis of coronary artery of resighini heart without angina pectoris Bloating Carpal tunnel syndrome Flu vaccine need Gallstones GERD (gastroesophageal reflux disease) Hammer toe Hyperlipidemia Hypertension Neuropathy Non-STEMI (non-ST elevated myocardial infarction) (~07/2017) Osteopenia Preoperative evaluation to rule out surgical contraindication Psoriasis Thyroid disease TIA (transient ischemic attack) Home Medications pdmkmmbpoyck-Vg-nxns-minerals 1 ea PO DAILY 03/27/15 [History Last Taken 03/25/15] aspirin 81 mg chewable tablet 81 mg PO DAILY@0800 ##90 07/26/17 [Rx Last Taken Unknown] estradiol 0.01% (0.1 mg/gram) vaginal cream 1 g vaginal .COMPLEX #42.5 grams 03/14/21 [Rx Last Taken Unknown] cholecalciferol (vitamin D3) 125 mcg (5,000 unit) tablet 125 mcg PO DAILY 07/04/21 [History Last Taken Unknown] psyllium husk 0.52 gram capsule (Metamucil) 0.52 g PO DAILY constipation 07/04/21 [History Last Taken Unknown] acetaminophen 650 mg tablet,extended release (Tylenol 8 Hour) 650 mg PO Q8H 07/11/21 [History Last Taken Unknown] lisinopril 20 mg-hydrochlorothiazide 12.5 mg tablet 0.5 tab PO DAILY #90 tabs 09/25/21 [Rx Last Taken Unknown] alendronate 35 mg tablet 35 mg PO QWEEK #30 tabs 02/26/22 [Rx Last Taken Unknown] albuterol sulfate 90 mcg/actuation aerosol inhaler 1 - 2 puff inhalation Q6H PRNshortness of breath or wheezing #8.5 grams 03/07/22 [Rx Last Taken Unknown] codeine 10 mg-guaifenesin 100 mg/5 mL oral liquid 5 ml PO Q6H PRN cough #120 mL 03/15/22 [Rx Last Taken Unknown] metoprolol tartrate 25 mg tablet 12.5 mg PO BID #90 tabs 04/06/22 [Rx Last Taken Unknown] atorvastatin 20 mg tablet 20 mg PO QHS #90 tabs 05/03/22 [Rx Last Taken Unknown] b complex PO 05/03/22 [History Last Taken Unknown] trazodone 50 mg tablet 75 mg PO QHS PRN insomnia #120 tabs 05/03/22 [Rx Last Taken Unknown] levothyroxine 75 mcg tablet 75 mcg PO DAILY #90 tabs 09/17/22 [Rx Last Taken Unknown] Allergy/AdvReac Type Severity Reaction Status Date / Time Sulfa (Sulfonamide Allergy Rash Verified 10/08/22 10:03 Antibiotics) Family History Brother Alcoholism Myocardial infarction Kidney disease Multiple myeloma Mother Arthritis Blood clot in vein Father Cancer Renal & Skin Kidney disease Surgical History History of bladder suspension procedure History of carpal tunnel surgery of right wrist History of colonoscopy (07/02/17) History of foot surgery History of hysterectomy History of left knee replacement History of tonsillectomy and adenoidectomy History of tubal ligation Social History Smoking Status: Never smoker second hand exposure: No alcohol intake: current alcohol intake frequency: a few times a week Alcohol type: wine substance use type: does not use caffeine: Yes frequency: 3-4 times per week ROS ROS ED Integumentary Reports other Details: Laceration distal radial side left index finger involvingthe nailbed. This is a flap, incomplete amputation. The flap does appear viable. ; Denies rash Neurologic Neurologic: Denies paresthesias or weakness Hematologic/Lymphatic Hematologic/Lymphatic: Denies easy bleeding, easy bruising or lymphadenopathy EXAM Physical Exam Const Vital Signs: 10/08/22 10:02 Temperature 96.9 F L Temperature Source Oral Pulse Rate 79 Respiratory Rate 18 Blood Pressure 133/84 H Blood Pressure Mean 100 Pulse Ox 98 Oxygen Delivery Method Room Air Positive well nourished and well developed General Appearance ED: well developed and NAD; Negative for cyanotic or diaphoretic HEENT Reports moist mucous membranes normocephalic and atraumatic Eyes PERRL and EOMs intact bilaterally Neck full ROM and supple Resp normal respiratory effort Cardio regular rate and regular rhythm Extremity full ROM; Negative for normal to inspection Extremity Narrative: The extensor indices tendon is functionally intact. The flexor digitorum superficialis and flexor digitorum profundus are intact. There is a partial/incomplete amputation of the distal aspect of left index finger which involves the nailbed. The flap appears viable and pink. Neuro oriented x3, CN's II-XII intact bilaterally, moves all extremities and no focal motor deficits Sensorium / Orientation: alert Psych mental status grossly normal Skin Skin Narrative: Described under the extremity portion. MDM MDM MDM Narrative Medical decision making narrative: Patient has a laceration which will require repair. Please read procedure note. Prior records were reviewed and there is no history of anticoagulant use. She is on a baby aspirin a day. Tetanus was updated. Please review procedure note regarding repair. Procedures Other Procedures Procedure(s): Laceration/distal flap left index finger: Digit was Nestabs by metacarpal block. 1% lidocaine was used without epinephrine. After 5 minutes patient was reassessed. She had no sensation. The distal third to one half of the nail was removed. The wound was irrigated with 100 cc of normal saline. The skin was closed using 5-0 Ethilon. A total of 4 stitches was placed. The nailbed was repaired using 5-0 Vicryl. A total of 2 simple interrupted sutures was placed. Tourniquet time 10 minutes. Total length of laceration 2.3 cm Discharge Plan Triage Chief Complaint: Laceration ED Provider: Kaz Rowell Dx/Rx/DC Orders Clinical Impression: Laceration of finger of left hand without foreign body with damage to nail Instructions: ED Laceration, Hand: All Closures Prescriptions: No Action cholecalciferol (vitamin D3) 125 mcg (5,000 unit) tablet 125 mcg PO DAILY psyllium husk [Metamucil] 0.52 gram capsule 0.52 g PO DAILY acetaminophen [Tylenol 8 Hour] 650 mg tablet extended release 650 mg PO Q8H albuterol sulfate 90 mcg/actuation HFA aerosol inhaler 1 - 2 puff inhalation Q6H PRN (Reason: shortness of breath or wheezing) Qty: 8.5 0RF b complex PO nplqibwfksje-Wl-lbau-minerals 1 EACH tablet 1 ea PO DAILY Label Comments: vitamin aspirin 81 MG tablet,chewable 81 mg PO DAILY@0800 Qty: 90 0RF estradiol 0.01 % (0.1 mg/gram) cream 1 g vaginal .COMPLEX Qty: 42.5 0RF Rx Instructions: 1 g vaginal 1gm each night for 2 weeks, then 2x a week; lisinopril-hydrochlorothiazide 20-12.5 mg tablet 0.5 tab PO DAILY Qty: 90 3RF alendronate 35 mg tablet 35 mg PO QWEEK Qty: 30 2RF codeine-guaifenesin 10-100 mg/5 mL liquid 5 ml PO Q6H PRN (Reason: cough) Qty: 120 0RF metoprolol tartrate 25 mg tablet 12.5 mg PO BID Qty: 90 3RF atorvastatin 20 mg tablet 20 mg PO QHS Qty: 90 3RF trazodone 50 mg tablet 75 mg PO QHS PRN (Reason: insomnia) Qty: 120 2RF levothyroxine 75 mcg tablet 75 mcg PO DAILY Qty: 90 3RF Primary Care Provider: Abran Yanes Referrals: Abran Yanes MD [Primary Care Provider] - 2 Days for wound check Activity Restrictions/Additional Instructions: 1. Keep wound clean and dry for the next 48 hours 2. Have wound checked in 2 days for evidence of infection and viability 3. Sutures to be removed in 10 days 4. Apply bacitracin ointment 3 times a day Disposition Disposition: Home, Self Care What to do if you have Problems For any increased pain, shortness of breath, bleeding, nausea or vomiting, chestpain, or any unexpected problems, contact your Primary Care Provider. Call [facility] ([phone]) or report to the closest Emergency Room. Call 911 if necessary. 10/08/22 1056 <Electronically signed by Kaz Rowell MD> Cosigner Signature (if applicable): CC: Dr. Abran Yanes MD ~ Signed [facility] Work Phone: Evaluation note* Diagnosis Onset Date Resolution Status Chest pain acute Non-STEMI (non-ST elevated myocardial infarction) 2017 acute Hyperlipidemia chronic Hypertension chronic [facility] Work Phone: Evaluation note* Diagnosis Onset Date Resolution Status Chest pain acute Non-STEMI (non-ST elevated myocardial infarction) 2017 acute Hyperlipidemia chronic Hypertension chronic Cough noneactive Bronchitis noneactive Non-STEMI (non-ST elevated myocardial infarction) 2017 acute Carpal tunnel syndrome chron ic Hyperlipidemia chronic Hypertension chronic Hypothyroidism chronic Insomnia chronic Obesity (BMI 30.0-34.9) [facility] Osteoarthritis chronic Encounter to establish care noneactive [facility] Work Phone: Evaluation note* Diagnosis Onset Date Resolution Status Hyperlipidemia chronic Hypertension chronic Non-STEMI (non-ST elevated myocardial infarction) 2017 resolved [facility] Work Phone: Evaluation note* Diagnosis Onset Date Resolution Status Elevated blood sugar acute GERD (gastroesophageal reflux disease) chronic Hyperlipidemia chronic Hypertension chronic Hypothyroidism chronic Obesity (BMI 30.0-34.9) [facility] Osteoarthritis chronic Elevated blood sugar acute Encounter to discuss test results acute Insulin resistance acute Hyperlipidemia chronic Hypertension chronic Hypothyroidism chronic Obesity (BMI 30.0-34.9) [facility] Work Phone: Evaluation note* Diagnosis Onset Date Resolution Status Elevated blood sugar acute Encounter to discuss test results acute Insulin resistance acute Hyperlipidemia chronic Hypertension chronic Hypothyroidism chronic Obesity (BMI 30.0-34.9) [facility] Work Phone: Evaluation note* Diagnosis Recurrent Clostridioides difficile infection- [facility] Diagnosis Recurrent Clostridioides difficile infection documented in this encounter [facility] note* Diagnosis Onset Date Resolution Status Admit Date Takotsubo cardiomyopathy acute March 31, 2025 2:27pm Atherosclerosis of coronary artery of resighini heart without angina pectoris chronic March 31 2:27pm Hyperlipidemia chronic March 2:27pm Hypertension chronic March 31, 2025 2:27pm [facility] Work Phone: Hospital Discharge instructions Additional Instructions 1. Keep wound clean and dry for the next 48 hours 2. Have wound checked in 2 days for evidence of infection and viability 3. Sutures to be removed in 10 days 4. Apply bacitracin ointment 3 times a [facility]WL[facility]: Reason for referral (narrative)No reason for referral information availableWLake County [facility] Work Phone: Summary Purpose Family History No Family History Records Found Relationship Condition Age at Onset Recorded Date/T nuria brother Alcoholism Unknown Myocardial infarction Unknown Kidney disorder Unknown Multiple myeloma Unknown mother Arthritis Unknown Venous thrombosis Unknown father Malignant neoplasm Unknown Advance Directives No Advanced Directives Records Found Advance Directive Response Recorded Date/ Time Advance Directives Yes September 04, 2018 4:47pm Living Will No May 31 9:19am Power of Electrical Technician No May 31, 2021 9:19am Advance Directive Response Recorded Date/ Time Advance Directives Yes September 04, 2018 3:47pm Living Will No May 31 8:19am Power of Electrical Technician No May 31, 2021 8:19am Advance Directive Response Recorded Date/ Time Advance Directives Yes September 04, 2018 3:47pm Living Will No October 08 10:34am Power of Electrical Technician No October 08, 2022 10:34am Advance Directive Response Recorded Date/ Time Living Will Yes May 05, 2024 9:22am Power of Electrical Technician Yes April 9:22am Living Will Yes July 19 12:28am Power of Electrical Technician Yes July 19, 2024 12:28am Advance Directives Yes September 04, 2018 3:47pm Advance Directive Response Recorded Date/ Time Advance Directives Yes September 04, 2018 4:47pm Chief Complaint and Reason for Visit Chief Complaint Admit Date 8 M FU March 31, 2025 2: 27pm Annual/Physical April 15, 2025 9: 54am Reason for Visit Admit Date Takotsubo cardiomyopathy March 31 2:27pm Atherosclerosis of coronary artery of resighini heart without angina pectoris March 31, 2025 2:27pm Hyperlipidemia March 31, 2025 2: 27pm Hypertension March 31, 2025 2: 27pm Chief Complaint chest twinges CP *MOODISPAW* CP *MOODISPAW* Reason for Visit Chest pain Non-STEMI (non-ST elevated myocardial infarction) Hyperlipidemia Hypertension Chief Complaint chest twinges CP *MOODISPAW* CP *MOODISPAW* 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, Transition of Care from Oleghe E ORDERS Reason for Visit Chest pain Non-STEMI (non-ST elevated myocardial infarction) Hyperlipidemia Hypertension Cough Bronchitis Non-STEMI (non-ST elevated myocardial infarction) Carpal tunnel syndrome Hyperlipidemia Hypertension Hypothyroidism Insomnia Obesity (BMI 30.0-34.9) Osteoarthritis Encounter to establish care Chief Complaint FLU SHOT 6 M FU SCREENING Reason for Visit Hyperlipidemia Hypertension Non-STEMI (non-ST elevated myocardial infarction) Chief Complaint 6 M FU SCREENING LACERATION Reason for Visit Hyperlipidemia Hypertension Non-STEMI (non-ST elevated myocardial infarction) Chief Complaint Annual E ORDERS Discuss Lab Results CONCERN FOR UTI PAIN BILATERAL HIP / DJD LUMBAR / RX HERE Reason for Visit Elevated blood sugar GERD (gastroesophageal reflux disease) Hyperlipidemia Hypertension Hypothyroidism Obesity (BMI 30.0-34.9) Osteoarthritis Elevated blood sugar Encounter to discuss test results Insulin resistance Hyperlipidemia Hypertension Hypothyroidism Obesity (BMI 30.0-34.9) Chief Complaint Discuss Lab Results CONCERN FOR UTI PAIN BILATERAL HIP / DJD LUMBAR / RX HERE SCREENING Reason for Visit Elevated blood sugar Encounter to discuss test results Insulin resistance Hyperlipidemia Hypertension Hypothyroidism Obesity (BMI 30.0-34.9) Chief Complaint Admit Date Flu Shot June 29, 2024 2:12pm TAKOTSUBO SYNDROME July 03, 2024 8:56am SC-NonSTEMI<12months July 15, 2024 9:15am SC-NonSTEMI<12months July 20, 2024 9:32am 3 mo f/u after Takotsubo July 28, 2024 3:53pm SCREENING October 12, 2024 2:36pm Reason for Visit Admit Date Flu vaccine need June 29, 2024 2:12pm Takotsubo cardiomyopathy July 28, 2024 3:53pm Atherosclerosis of coronary artery of resighini heart without angina pectoris July 28, 2024 3:53pm Hyperlipidemia July 28, 2024 3:53pm Hypertension July 28, 2024 3:53pm Chief Complaint Admit Date 8 M FU March 31, 2025 2: 27pm Reason for Referral Specialty Diagnoses / Procedures Referred By Audrey torrez Referred To Contact Gastroenterology Diagnoses Recurrent Clostridioides difficile infection Procedures CONSULT TO GASTROENTEROLOGY OFFICE/OUTPATIENT [facility] 60 MINUTES Candice Carter PA-C [address] [place] [address] Julius Magallanes MD [address] [place] [address] Referral ID Status Reason Start Date Expiration Date Visits Requested Visits Authorized [id number] Authorized PCP Requested Referral 07/20/2024 07/20/2025 1 1 Specialty Diagnoses / Procedures Referred By Contac t Referred To Contact Diagnoses Recurrent Clostridioides difficile infection Julius Magallanes MD [address] [place] [address] Referral ID Status Reason Start Date Expiration Date Visits Re quested Visits Authorized [id number] Closed 1 1 Additional Source Comments INFORMATION SOURCE (unrecogn ized section and content) DATE CREATED AUTHOR 09/14/2021 [facility] ([place]) DATE CREATED AUTHOR AUTHOR'S ORGANIZ ATION 10/03/2021 [facility] DATE CREATED AUTHOR AUTHOR'S ORGANIZ ATION 09/04/2024 [facility] DATE CREATED AUTHOR AUTHOR'S ORGANIZ ATION 04/16/2025 [facility] Goals (unrecognized section and content) Goals may be documented in a n alternate sectionGoals may be documented in an alternate sectionGoals may be documented in an alternate sectionGoals may be documented in an alternate sectionGoals may be documented in an alternate sectionGoals may be documented in an alternate sectionGoals may be documented in an alternate sectionGoals may be documented in an alternate sectionGoals may be documented in an alternate sectionGoals may be documented in an alternate section Care Teams (unrecognized sec tion and content) Team Status: Active Member Role Status Dates Dr. Srinivas Jacobs MD Family Provider Active Dr. Abran Yanes MD Primary Care Provider Active Team Status: Inactive Member Role Status Dates Dr. Srinivas Jacobs MD Referring Provider Active Janiya Cornelius PA, PA Attending Provider Active Dr. Abran Yanes MD Primary Care Provider Active Team Status: Inactive Member Role Status Dates Dr. Abran Yanes MD Primary Care Pro vider, Attending Provider, Referring Provider Active Team Status: Inactive Member Role Status Dates Dr. Abran Yanes MD Primary Care Provider Active Dr. Kaz Rowell MD Emergency Provider Active Team Status: Inactive Member Role Status Dates Dr. Abran Yanes MD Primary Care Provider, Attendi ng Provider Active Team Status: Inactive Member Role Status Dates Dr. Abran Yanes MD Primary Care Provider, Referri ng Provider Active Francisco DEL ANGEL PA Attending Provider Active Team Status: Active Member Role Status Dates Dr. Abran Yanes MD Primary Care Provider Active Dr. Patricio Duenas MD Attending Provider Active Team Status: Inactive Member Role Status Dates Dr. Abran Yanes MD Primary Care Provider Active Francisco DEL ANGEL PA Attending Provider Active Team Status: Inactive Member Role Status Dates Dr. Abran Yanes MD Primary Care Provider Active Dr. Patricio Duenas MD Attending Provider Active Design Director Relationship Specialty Start Date End Date Abran Yanes MD [address] [facility] [address] [place] [address] PCP - General Internal Medicine 05/22/24 Design Director Relationship Specialty Start Date End Date Abran Yanes MD [address] [facility] [address] [place] [address] PCP - General Internal Medicine 05/22/24 Team Status: Active Member Role Status Dates Dr. Abran Yanes MD Primary Care Provider Active Team Status: Inactive Member Role Status Dates Dr. Abran Yanes MD Primary Care Provider Active Start: June 29, 2024 End: June 29, 2024 Dr. Abran Yanes MD Attending Provider Active Start: June 29, 2024 End: June 29, 2024 Team Status: Inactive Member Role Status Dates Dr. Abran Yanes MD Primary Care Provider Active Start: July 03, 2024 End: July 03, 2024 Bela Roberson COOLER OPERATOR, COOLER OPERATOR-C Attending Provider Active Start: July 03, 2024 End: July 03, 2024 Bela Roberson COOLER OPERATOR, COOLER OPERATOR-C Referring Provider Active Start: July 03, 2024 End: July 03, 2024 Team Status: Active Member Role Status Dates Dr. Abran Yanes MD Primary Care Provider Active Start: July 03, 2024 Dr. Dash Prabhakar MD Attending Provider Active S tart: July 03, 2024 Team Status: Inactive Member Role Status Dates Dr. Abran Yanes MD Primary Care Provider Active Start: July 15, 2024 End: July 18, 2024 Dr. Dash Prabhakar MD Attending Provider Active S tart: July 15, 2024 End: July 18, 2024 Dr. Dash Prabhakar MD Referring Provider Active S tart: July 15, 2024 End: July 18, 2024 Team Status: Inactive Member Role Status Dates Dr. Abran Yanes MD Primary Care Provider Active Start: July 20, 2024 End: August 18, 2024 Dr. Dash Prabhakar MD Attending Provider Active S tart: July 20, 2024 End: August 18, 2024 Dr. Dash Prabhakar MD Referring Provider Active S tart: July 20, 2024 End: August 18, 2024 Team Status: Inactive Member Role Status Dates Dr. Abran Yanes MD Primary Care Provider Active Start: July 28, 2024 End: July 28, 2024 Dr. Abran Yanes MD Referring Provider Active Start: July 28, 2024 End: July 28, 2024 Dr. Dash Prabhakar MD Attending Provider Active S tart: July 28, 2024 End: July 28, 2024 Team Status: Inactive Member Role Status Dates Dr. Abran Yanes MD Primary Care Provider Active Start: October 12, 2024 End: October 12, 2024 Dr. Abran Yanes MD Attending Provider Active Start: October 12, 2024 End: October 12, 2024 Dr. Abran Yanes MD Referring Provider Active Start: October 12, 2024 End: October 12, 2024 Team Status: Active Member Role/Relationship Status Dates Dr. Abran Yanes MD Primary Care Provider Active Team Status: Inactive Member Role/Relationship Status Dates Dr. Abran Yanes MD Primary Care Provider Active Start: March 31, 2025 End: March 31, 2025 Dr. Abran Yanes MD Referring Provider Active Start: March 31, 2025 End: March 31, 2025 Janiya Cornelius PA, PA Attending Provider Active Start: March 31, 2025 End: March 31, 2025 Team Status: Inactive Member Role/Relationship Status Dates Dr. Abran Yanes MD Primary Care Provider Active Start: April 15, 2025 End: April 15, 2025 Dr. Abran Yanes MD Attending Provider Active Start: April 15, 2025 End: April 15, 2025 Source Comments (unrecognize d section and content) In the event this informatio n is protected by the Federal Confidentiality of Alcohol and Drug Abuse Patient Records regulations: The Federal rules restrict any use of the information to criminally investigate or prosecute any alcohol or drug abuse patient.[facility] HealthIn the event this information is protected by the Federal Confidentiality of Alcohol and Drug Abuse Patient Records regulations: The Federal rules restrict any use of the information to criminally investigate or prosecute any alcohol or drug abuse patient.Prem[facility] HealthIn the event this information is protected by the Federal Confidentiality of Alcohol and Drug Abuse Patient Records regulations: The Federal rules restrict any use of the information to criminally investigate or prosecute any alcohol or drug abuse patient.[facility] Reason for Visit (unrecogniz ed section and content) Reason Comments Recurrent C Diff 3 times since January Reason Comments Medication Problem Reason Comments Diarrhea Specialty Diagnoses / Procedures Referred By Contac t Referred To Contact Gastroenterology Diagnoses Recurrent Clostridioides difficile infection Procedures CONSULT TO GASTROENTEROLOGY OFFICE/OUTPATIENT [facility] 60 MINUTES Candice Carter PA-C [address] [place] [address] Julius Magallanes MD [address] [place] [address] Referral ID Status Reason Start Date Expiration Date V isits Requested Visits Authorized [id number] Closed PCP Requested Referral 07/20/2024 07/20/2025 1 1 FOR RECORDS PERTAINING TO PATIENTS WHO ARE OR HAVE BEEN ENROLLED IN A CHEMICAL DEPENDENCY/SUBSTANCEABUSE PROGRAM, SOME INFORMATION MAY BE OMITTED. This clinical summary was aggregated from multiple sources. Caution should be exercised in using it in the provision of clinical care. This summary normalizes information from multiple sources, and as a consequence, information in this document may materially change the coding, format and clinical context of patient data. In addition, data may be omitted in some cases. CLINICAL DECISIONS SHOULD BE BASED ON THE PRIMARY CLINICAL RECORDS. [facility] [employer] [facility]. provides no warranty or guarantee of the accuracy or completeness of information in this document.
[2025-04-17 23:54] LABS: Hematocrit 39.0 % (37-47); Hemoglobin 14.0 g/dL (12.0-15.0); Immature Granulocytes Count 0.380 X10^3/uL (0.0-0.0); Mean Corp Hgb Conc 35.9 g/dL (32-36); Mean Corpuscular Volume 92.2 fL (81-99); Mean Platelet Vol. 9.0 fl (6.2-12.0); NRBC Flagged by Analyzer 0 % (0-5); POSITIVE DIFFERENTIAL YES; Platelet Count 257 K/mm3 (150-450); RBC Distribution Width CV 13.7 % (11.6-14.6); RBC Distribution Width SD 46.6 fl (35.1-43.9); Red Blood Count 4.23 M/mm3 (4.2-5.4); White Blood Count 25.7 K/mm3 (4.4-11.0)
[2025-04-18] VITALS (9 sets, daily range): BP systolic 101–124; BP diastolic 57–73; PULSE 63–90; RESP 14–19; TEMP 36.6–37.5; O2SAT 94–98; BMI 34.3
[2025-04-18 00:03] LABS: Anion Gap 15 (5-15); BUN 15 mg/dL (4-19); BUN/Creat Ratio 15.4 RATIO (10-20); Calcium,Total 9.1 mg/dL (7.6-11.0); Carbon Dioxide 18.4 mmol/L (21.0-32.0); Chloride 97 mmol/L (98-108); Estimated Creatinine Clearance 55.54 ml/min (50-250); Glucose 169 mg/dL (70-99); Potassium 3.6 mmol/L (3.3-5.1)
[2025-04-18 00:08] LABS: Differential Indicated SCAN CRITERIA MET
[2025-04-18 00:27] LABS: Mucous, Urine 0 SEEN /hpf (<or=2+); Red Blood Cells-Urine 0 SEEN /hpf (0-5); Squamous Epithelial Cells - UA 0 SEEN /hpf (5-10)
[2025-04-18 00:29] LABS: Color, Urine Yellow (Yellow); Glucose, Dipstick Normal (Normal); Ketone-Dipstick 15 mg/dl (Negative); Leukocyte Esterase-Dipstick Negative /ul (Negative); Nitrite-Dipstick Negative (Negative); Occult Blood-Urine 10 /ul (Negative); Protein-Dipstick 30 mg/dl (Negative); Specific Gravity, Urine 1.010 (1.002-1.030); Urine Bilirubin Dipstick Negative (Negative)
[2025-04-18 00:29] LABS: Differential Comment SCANNED
--- NOTE | 2025-04-18 01:18 | CT_ITS ---
PROCEDURE: CT CHEST, ABD, PEL W/CONTRAST 04/18/2025 REASON FOR EXAM: POSSIBLE SEPSIS UNKNOWN ORIGIN TECHNIQUE: Chest, abdomen and pelvis CT with intravenous contrast. Coronal and Sagittal reconstruction series were provided. One or more dose reduction techniques were used (e.g., Automated exposure control, adjustment of the mA and/or kV according to patient size, use of iterative reconstruction technique. PATIENT PREPARATION: Per protocol ORAL CONTRAST TYPE: None. CONTRAST: Isovue-[id number]. VOLUME: 100 RADIATION DOSE SUMMARY: CTDlvol: 24.06 mGy DLP: 1221 mGycm COMPARISON: CT scan on 01/19/2024. FINDINGS: Bilateral basilar atelectatic pulmonary changes. Mild cardiomegaly. Moderate coronary artery calcifications. Small sliding hiatal hernia. Cholelithiasis without acute cholecystitis. Diffuse colonic diverticulosis. Mild thickening of the sigmoid colon, probably mild colitis. Moderate amount of fecal residue in the large bowels. Prior hysterectomy. Mildly prominent retroperitoneal lymph nodes are noted with the largest measuring 1.2 cm. Mild cardiomegaly. Normal enhancement of the main pulmonary artery and right and left pulmonary arteries. Normal enhancement of the bilateral peripheral pulmonary arteries. There is no demonstrated pulmonary embolism. Normal thoracic aorta and visualized great vessels. There is no demonstrated aortic dissection. Normal pericardium. Normal mediastinum. Normal hilar regions. Normal visualized trachea and bronchi. Normal pleura. Normal liver. Normal extrahepatic biliary system. Normal spleen. Normal pancreas. Normal bilateral adrenal glands. Normal size of the right kidney. There is no right renal mass. There are no right renal calculi. There is no right hydronephrosis. Normal visualized right ureter. Normal size of the left kidney. There is no left renal mass. There are no left renal calculi. There is no left hydronephrosis. Normal visualized left ureter. The appendix is visualized and appears normal. There is no demonstrated peritoneal fluid. Normal abdominal aorta. Normal inferior vena cava. Normal retroperitoneum. Normal urinary bladder. There is no pelvic mass lesion or lymphadenopathy. There is no pelvic fluid. Moderate diffuse spondylosis. CT/CT Chest, Abd, Pel w/Contrast IMPRESSION: Bilateral basilar atelectatic pulmonary changes. Mild cardiomegaly. Moderate coronary artery calcifications. Small sliding hiatal hernia. Cholelithiasis without acute cholecystitis. Diffuse colonic diverticulosis. Mild thickening of the sigmoid colon, probably mild colitis. Moderate amount of fecal residue in the large bowels. Prior hysterectomy. Mildly prominent retroperitoneal lymph nodes are noted with the largest measuri ng 1.2 cm. Mild cardiomegaly. Reading [facility]
[2025-04-18] MEDS: Piperacil/Tazobactam 4.5 GM in 0.9% Normal Saline (100mL MB+) 100 ML IV (01:56)
[2025-04-18] MEDS: 0.9% Normal Saline (250mL Bag) 250 ML 15 ML IV (01:56)
[2025-04-18] MEDS: Vancomycin HCl 2,000 MG in 0.9% Normal Saline (500mL Bag) 500 ML 250 MG IV (02:30)
--- NOTE | 2025-04-18 03:32 | PCM.HP.STD ---
[facility] - General General Date of Admission: 04/18/25 Date of Service: 04/18/25 Chief Complaint: Fever and Malaise. HPI Narrative ROMERO GRAY, is a 75 F with a past medical history of essential hypertension; on lisinopril-hydrochlorothiazide and carvedilol twice daily, hyperlipidemia; on atorvastatin, hypothyroidism; on levothyroxine, obesity (class I); BMI of 34 this admission, history of CAD; s/p non-ST elevation TN (2016) on baby aspirin daily, history of Takotsubo cardiomyopathy, history of TIA (2004), neuropathy, history of insulin resistance, history of recurrent C. difficile colitis, history of rectal bleeding, history of psoriasis, GERD; currently not on treatment, osteopenia, OA; s/p Left TKR (2021) and history of recurrent Right lower extremity cellulitis who presents to [facility] ER complaining of fever and malaise. Ms. Gray reports her symptoms began approximately 1 week prior to admission with a head cold with rhinorrhea as her only symptom. Then around 4 PM on April 17, 2025 she began to feel crappy with malaise, fever up to 102 ?F and generally feeling unwell. She then took acetaminophen around 16:30 hours without significant improvement so she states she had a similar constellation of symptoms that heralded her pervious bout of RLE cellulitis with new erythema developing in her Right leg and she wanted to be proactive and get ahead of it this time so she decided to come in for further evaluation and treatment. She denies recent travel or known sick contacts. The patient denies associated abdominal pain, nausea, vomiting, diarrhea, constipation, dysuria, hematuria or headache. In the ER she was noted to have Leukocytosis of 25.7 K with Left-shift of 1.5% with Fever of 99.7 ?F and Tachycardia of ~117 bpm present on admission noted in ER and increasing Right lower extremity erythema suspected to be due to recurrent Cellulitis (likely from MRSA) complicated by additional laboratory evidence of Hyperglycemia of 169 mg/dL; in setting of known history of insulin resistance along with mild Hyponatremia of 131 mmol/L present on admission and she was then admitted to the PCU for treatment under the Sepsis protocol for stay that is expected to extend beyond 2 midnights. [facility] Medical History Recurrent Clostridioides difficile diarrhea Hammer toe TIA (transient ischemic attack) Psoriasis Thyroid disease GERD (gastroesophageal reflux disease) Osteopenia Neuropathy Carpal tunnel syndrome Arthritis Atherosclerosis of coronary artery of [place] heart without angina pectoris Non-STEMI (non-ST elevated myocardial infarction) (~07/2017) Hypertension Hyperlipidemia Home Medications ?Medication ?Instructions ?Recorded ?Last Taken ?Type aspirin 81 mg chewable tablet 81 mg PO DAILY@0800 ##90 07/26/17 04/26/24 Rx cholecalciferol (vitamin D3) 125 125 mcg PO DAILY 07/04/21 01/12/24 History mcg (5,000 unit) tablet levothyroxine 75 mcg tablet 75 mcg PO DAILY #90 tabs 09/04/24 Unknown Rx lisinopril 20 0.5 tab PO QDAY #45 tabs 10/27/24 Unknown Rx mg-hydrochlorothiazide 12.5 mg tablet atorvastatin 20 mg tablet 20 mg PO QHS #90 tabs 02/01/25 Unknown Rx estradiol 0.01% (0.1 mg/gram) 1 g vaginal .COMPLEX #42.5 grams 02/01/25 Unknown Rx vaginal cream trazodone 50 mg tablet 50 mg PO QHS PRN insomnia #90 tabs 02/01/25 Unknown Rx carvedilol 3.125 mg tablet 3.125 mg PO BID #180 tabs 03/31/25 Unknown Rx multivitamin 1 tab PO QDAY 03/31/25 Unknown History psyllium husk 0.52 gram capsule 0.52 g PO DAILY PRN bm 03/31/25 Unknown History (Daily Fiber) lactobacillus combination no.4 3 3,000 mmu cells PO DAILY probiotic 04/18/25 04/17/25 History billion cell capsule (Probiotic) Allergy/AdvReac Type Severity Reaction Status Date / Time Sulfa (Sulfonamide Allergy Rash Verified 04/17/25 22:53 Antibiotics) Family History Brother Alcoholism Myocardial infarction Kidney disease Multiple myeloma Mother Arthritis Blood clot in vein Father Cancer Renal & Skin Kidney disease Surgical History History of left knee replacement History of colonoscopy (07/02/17) History of tubal ligation History of tonsillectomy and adenoidectomy History of hysterectomy History of carpal tunnel surgery of right wrist History of bladder suspension procedure History of foot surgery Social History household members: spouse Smoking Status: Never smoker second hand exposure: No alcohol intake: current alcohol intake frequency: a few times a week Alcohol type: wine substance use type: does not use caffeine: Yes frequency: 3-4 times per week ROS ROS Narrative Review of Systems: Constitutional: Patient admits to fever but denies chills. Eyes: Patient denies changes in vision or discharge from eyes. ENT: Patient admits to runny nose but she denies sore throat or ear pain. Resp: Patient denies shortness of breath or cough. CV: Patient denies chest pain, palpitations or heart racing. GI: Patient denies abdominal pain, nausea, vomiting, diarrhea or constipation. : Patient denies dysuria or hematuria. MSK: Patient denies arthralgias or myalgias. Skin: Patient admits to Right lower extremity erythema as per HPI. Psych: Patient denies symptoms of uncontrolled depression or anxiety. Neuro: Patient denies headache, paresthesias or focal neurologic deficits. Allergy: Patient denies lip swelling, tongue swelling or urticaria. Hematology: Patient denies easy bleeding or easy bruisability. Endocrinology: Patient denies polyuria, polydipsia, polyphagia or heat/cold intolerance. 14 point ROS otherwise negative except for positives noted above in HPI. Vital Signs Vital Signs Vital Signs: 04/17/25 22:53 04/17/25 22:53 04/17/25 23:31 Temperature 99.7 F H 99.7 F H Temperature Source Oral Oral Pulse Rate 117 H 117 H Respiratory Rate 20 H 20 H Respiratory Effort Normal Non-Labored Respiratory Pattern Normal Blood Pressure 142/85 H 142/85 H Blood Pressure Mean 104 104 Pulse Ox 92 92 Oxygen Delivery Method Room Air Room Air 04/18/25 00:05 04/18/25 02:00 04/18/25 02:00 Temperature 99.5 F H 98.1 F Temperature Source Oral Oral Pulse Rate 90 78 78 Respiratory Rate 15 19 H 19 H Respiratory Effort Respiratory Pattern Blood Pressure 123/73 H 123/70 H 123/70 H Blood Pressure Mean 89 87 87 Pulse Ox 94 98 98 Oxygen Delivery Method Room Air Weight Weight: 204 lb 5.896 oz Body Mass Index (BMI) 34.0 Physical Exam Const alert, oriented x3 and no apparent distress Constitutional Narrative: Pleasant, obese and nontoxic in appearance. General Appearance: cooperative HEENT normocephalic, head/scalp atraumatic, hearing grossly normal bilaterally and moist oral mucous membranes Eyes PERRL, EOMs intact bilaterally and conjunctivae normal Neck no lymphadenopathy, supple and no JVD Resp normal respiratory effort, no retractions, no use of accessory muscles and clear to auscultation bilaterally Cardio regular rate and regular rhythm Cardio Narrative: Tachycardia ~117 bpm noted. GI normal to inspection, nondistended, normoactive bowel sounds, soft to palpation, non-tender and non-distended GI Narrative: Obese. Extremity Extremity Narrative: Erythema of Right lower extremity. Neuro oriented x3, CN's II-XII intact bilaterally, moves all extremities and no focal motor deficits Sensorium / Orientation: awake, alert, oriented to person, oriented to place and oriented to time Speech: speech normal Psych affect normal Results Medical Records Data Attestation: I reviewed the patient's medical records Lab / Micro Data Attestation: I reviewed the patient's lab results. 04/17/25 23:24 04/17/25 23:24 Labs: Laboratory Results - last 24 hr 04/17/25 23:24: WBC 25.7 H, RBC 4.23, Hgb 14.0, Hct 39.0, MCV 92.2, MCH 33.1 H, MCHC 35.9, RDW Std Deviation 46.6 H, RDW Coeff of Tory 13.7, Plt Count 257, MPV 9.0, Immature Gran % (Auto) 1.500 H, Neut % (Auto) 90.2 H, Lymph % (Auto) 3.2 L, Holmes % (Auto) 4.9, Eos % (Auto) 0.0, Baso % (Auto) 0.2, Absolute Neuts (auto) 23.2 H, Absolute Lymphs (auto) 0.82 L, Nucleated RBC % 0, Differential Comment SCANNED, Sodium 131 L, Potassium 3.6, Chloride 97 L, Carbon Dioxide 18.4 L, Anion Gap 15, BUN 15, Creatinine 1.00, Estim Creat Clear Calc 55.54, Est GFR (MDRD) Non-Af 59 L, BUN/Creatinine Ratio 15.4, Glucose 169 H, Lactic Acid 1.0, Calcium 9.1 04/18/25 00:20: Urine Color Yellow, Urine Clarity Clear, Urine pH 7.0, Ur Specific English 1.010, Urine Protein 30 H, Urine Glucose (UA) Normal, Urine Ketones 15 H, Urine Occult Blood 10 H, Urine Nitrite Negative, Urine Bilirubin Negative, Urine Urobilinogen Normal, Ur Leukocyte Esterase Negative, Urine RBC 0 SEEN, Urine WBC 0 SEEN, Ur Squamous Epith Cells 0 SEEN, Urine Bacteria RARE, Urine Mucus 0 SEEN Imaging Radiology Impression Chest X-Ray 04/17/25 23:25 IMPRESSION: No evidence for acute abnormality. Reading Location: [facility] Imaging Services [address] [place] [id number] Chest, Abd, Pel w/Contrast MR#: [id number] Acct: [id number] Name: ROMERO GRAY Rep #: [id number] : 1950 F 75 From: Praveen Jacob MD PCP: Dr. Jodie Yanes MD Status: [facility] Study: CT Chest, Abd, Pel w/Contrast Date of Exam: 04/18/25 Exam# [id number] Ordering Dr: Sharlene Rosado MD PROCEDURE: CT CHEST, ABD, PEL W/CONTRAST 04/18/2025 REASON FOR EXAM: POSSIBLE SEPSIS UNKNOWN ORIGIN TECHNIQUE: Chest, abdomen and pelvis CT with intravenous contrast. Coronal and Sagittal reconstruction series were provided. One or more dose reduction techniques were used (e.g., Automated exposure control, adjustment of the mA and/or kV according to patient size, use of iterative reconstruction technique. PATIENT PREPARATION: Per protocol ORAL CONTRAST TYPE: None. CONTRAST: Isovue-350. VOLUME: 100 RADIATION DOSE SUMMARY: CTDlvol: 24.06 mGy DLP: 1221 mGycm COMPARISON: CT scan on 01/19/2024. FINDINGS: Bilateral basilar atelectatic pulmonary changes. Mild cardiomegaly. Moderate coronary artery calcifications. Small sliding hiatal hernia. Cholelithiasis without acute cholecystitis. Diffuse colonic diverticulosis. Mild thickening of the sigmoid colon, probably mild colitis. Moderate amount of fecal residue in the large bowels. Prior hysterectomy. Mildly prominent retroperitoneal lymph nodes are noted with the largest measuring 1.2 cm. Mild cardiomegaly. Normal enhancement of the main pulmonary artery and right and left pulmonary arteries. Normal enhancement of the bilateral peripheral pulmonary arteries. There is no demonstrated pulmonary embolism. Normal thoracic aorta and visualized great vessels. There is no demonstrated aortic dissection. Normal pericardium. Normal mediastinum. Normal hilar regions. Normal visualized trachea and bronchi. Normal pleura. Normal liver. Normal extrahepatic biliary system. Normal spleen. Normal pancreas. Normal bilateral adrenal glands. Normal size of the right kidney. There is no right renal mass. There are no right renal calculi. There is no right hydronephrosis. Normal visualized right ureter. Normal size of the left kidney. There is no left renal mass. There are no left renal calculi. There is no left hydronephrosis. Normal visualized left ureter. The appendix is visualized and appears normal. There is no demonstrated peritoneal fluid. Normal abdominal aorta. Normal inferior vena cava. Normal retroperitoneum. Normal urinary bladder. There is no pelvic mass lesion or lymphadenopathy. There is no pelvic fluid. Moderate diffuse spondylosis. CT/CT Chest, Abd, Pel w/Contrast IMPRESSION: Bilateral basilar atelectatic pulmonary changes. Mild cardiomegaly. Moderate coronary artery calcifications. Small sliding hiatal hernia. Cholelithiasis without acute cholecystitis. Diffuse colonic diverticulosis. Mild thickening of the sigmoid colon, probably mild colitis. Moderate amount of fecal residue in the large bowels. Prior hysterectomy. Mildly prominent retroperitoneal lymph nodes are noted with the largest measuring 1.2 cm. Mild cardiomegaly. Reading [facility] CC: Dr. Sharlene Rosado MD; Dr. Jodie Yanes MD ~ [employer] Scre[employer]: Signed Assessment & Plan Assessment/Plan (1) Sepsis: QUALIFIERS: Sepsis acute organ dysfunction status: without acute organ dysfunction Sepsis type: sepsis due to unspecified organism Qualified Code(s): A41.9 - Sepsis, unspecified organism (2) Cellulitis: QUALIFIERS: Laterality: right Site of cellulitis: extremity Site of cellulitis of extremity: lower extremity Qualified Code(s): L03.115 - Cellulitis of right lower limb (3) Hyperglycemia: (4) Insulin resistance: (5) Hyponatremia: (6) Obesity (BMI 30.0-34.9): PLAN: Plan 1. Suspected Sepsis with Leukocytosis of 25.7 K with Left-shift of 1.5% with Fever of 99.7 ?F and Tachycardia of ~117 bpm present on admission noted in ER and increasing Right lower extremity erythema suspected to be due to recurrent Cellulitis (likely from MRSA) - Admit to PCU for treatment under the Sepsis protocol. Continue empiric IV vancomycin and IV piperacillin-tazobactam began in the ER. Check MRSA PCR to confirm suspicion. Give ondansetron IV as needed for nausea or vomiting. Give acetaminophen as needed for [id number] (level 1-5/10) pain or fever. Give morphine IV as needed for severe (level 6-10/10) pain. 2. Hyperglycemia of 169 mg/dL; in setting of known history of insulin resistance complicating #1 - Check HgbA1c to confirm suspicion of transition to omar DM-2. ADA/cardiac diet. 3. Hyponatremia of 131 mmol/L present on admission compounding #1 & #2 - Give NS IVF and then recheck CMP in AM to follow trend for improvement. 4. Obesity (class I); BMI of 34 this admission adding to the burden of disease outlined from #1 - #3 - Weight loss will be recommended. TSH pending. This complicates her case and may hamper recovery. 5. Essential hypertension; on lisinopril-hydrochlorothiazide and carvedilol twice daily - Hold scheduled antihypertensives in light of #1. 6. Hyperlipidemia; on atorvastatin - Resume statin and check Lipid Profile. 7. Hypothyroidism; on levothyroxine - Maintain levothyroxine and check TSH. 8. History of CAD; s/p non-ST elevation TN (2016) on baby aspirin daily - Stable. Restart BASA daily. 9. History of Takotsubo cardiomyopathy - Noted. 10. History of TIA (2004) - Noted. 11. Neuropathy - Stable with patient currently not on treatment. 12. History of recurrent C. difficile colitis - Patient has no complaints related to this issue a this time but we will be vigilant if symptoms should develop. 13. History of rectal bleeding - Noted with no complaints of recent bleeding. 14. History of psoriasis - Stable. 15. GERD; currently not on treatment - Start PPI if symptoms develop. 16. Osteopenia - Stable. 17. OA; s/p Left TKR (2021) - Stable. We will give acetaminophen prn as outlined in #1. 18. DVT prophylaxis - Enoxaparin 40 mg sq daily. Total time: Approximately (but not less than) 75 minutes. Sepsis Attestation Sepsis Attestation: Sepsis Ruled Out Date exam was performed: 04/18/25 Time exam was performed: 04:30 Possible Source of Sepsis: Skin/soft tissue Sepsis Organ Dysfunction Criteria Present: SBP decrease of more than 40 mmHg Supportive Findings: In the ER she was noted to have Leukocytosis of 25.7 K with Left-shift of 1.5% with Fever of 99.7 ?F and Tachycardia of ~117 bpm present on admission noted in ER and increasing Right lower extremity erythema suspected to be due to recurrent Cellulitis (likely from MRSA). Fluid Resuscitation Fluid resuscitation indicated?: Yes Fluid Resuscitation ordered: 30 ml/kg fluid bolus ordered Amount of fluid ordered: 2 Sepsis Note Date exam was performed: 04/18/25 Time exam was performed: 06:08 Sepsis Attestation: Sepsis re-evaluation was performed Response to fluids: Fluid responsive hypotension Charges/Coding Visit Charges Inpatient E&M: 32162 Init Hosp L3
--- OUTSIDE RECORDS SUMMARY | 2025-04-18 04:16 | XMS RPT_ITS | CCD ---
Author Organization [facility] Care Team Providers Care Code Official Name Role Phone PATRICIO DUENAS DR Admitting [...] Unavailable Farzana, Abran Primary Care Unavailable Aki, [place] Attending Unavailable Liliya Ballard Referring Unavailable Aki, [place] Attending Unavailable Farzana, Abran Primary Care Unavailable Farzana, Abran Primary Care Unavailable Farzana, Abran Referring Unavailable Janiya Mantilla Attending Unavail able Aki, Dash Referring Unavailable Aki, Dash Attending Unavailable Farzana, Abran Primary Care Unavailable Farzana, Abran Primary Care Unavailable Aki, Dash Attending Unavailable Aki, [place] Referring Unavailable Farzana, Abran Primary Care Unavailable Aki, [place] Referring Unavailable Aki, [place] Attending Unavailable Aki, [place] Attending Unavailable Farzana, Abran Primary Care Unavailable Farzana, Abran Primary Care Unavailable Farzana, Abran Attending Unavailable Farzana, Abran Referring Unavailable Gentry Manzo Attending Unavailable Farzana, Abran Primary Care Unavailable Aki, [place] Referring Unavailable Aki, [place] Attending Unavailable Farzana, Abran Primary Care Unavailable Bela Roberson NP Referring Unavailable Da COSTA, Bela Attending Unavailable Farzana, Abran Primary Care Unavailable Farzana, Abran Referring Unavailable Farzana, Abran Attending Unavailable Farzana, Abran Primary Care Unavailable Gentry Manzo Referring Unavailable Gentry Manzo Attending Unavailable Farzana, Abran Primary Care Unavailable Farzana, Abran Primary Care Unavailable Liliya Ballard Admitting Unavailable Beatris Atkins Attending Unavailable Aki, [place] Consulting Unavailable Liliya Ballard Consulting Unavailable Farzana, Abran Primary Care Unavailable Aki, [place] Attending Unavailable Aki, [place] Referring Unavailable Aki, Dash Referring Unavailable Aki, [...] Care Unavailable Farzana, Abran Referring Unavailable Aki, [place] Attending Unavailable Farzana, Abran Primary Care Unavailable Liliya Ballard Attending Unavailable Dash Prabhakar Attending Unavailable Allergies Allergy Classification Reported Allergen(s) Allergy Type Date of Onset Reaction(s) Facility (1 source) Sulfonamides (Antibiotic) Drug allergy (disorder) [facility] Repository (15 sources) Sulfonamides (Antibiotic); Translations: [SULFA (SULFONAMIDE ANTIBIOTICS)] Allergy to substance [facility] Medications Current Medications Medication Drug Class(es) Dates [...] {tbl} PO daily March 31, 2025 12:00am Ndolncirdavy-Gc-Usvx-Mineral s (7 sources) Start: 03-27-2015 Multivitamin-C x-Cpfq-Eqvqfhyl Active 1 EACH PO DAILY March 26, 2015 11:00pm Start: 03-27-2015 Multivitamin-C r-Ncun-Fbryxxzy Active 1 EACH PO DAILY March 27, [...] 17, 2021 1:00am February 07, 2022 3:00pm [id number] 200 actuat albuterol 0.09 mg/actuat metered dose [...] 06, 2021 12:00am June 07, 2021 12:01am Cbyduvejacfh-Vx-Vdu n-Minerals 1 EACH tablet (3 sources) Start: 03-27-2015 End: 01-12-2024 take 1 tablet by mouth once daily Gnljhiyhpahk-Xi-Mq on-Minerals 1 EACH tablet Discontinued 1 NMA PO DAILY March 27, 2015 12:00am January 12, 2024 4:30pm Start: 03-27-2015 End: 01-12-2024 take 1 tablet by mouth once daily Gzyvjncrdsen-Gg-Ssho-Minerals 1 EACH tab let Discontinued 1 NMA [...] Coronary atherosclerosis; Translations: [Atherosclerotic heart disease of [place] coronary artery without angina pectoris] Onset: 4 [...] Interpretation Reference Range Facility MR/BMS.SHANNANBon 04-15-2025 MR/BMS.IMB [facility] [address] [place] [address] OFFICE VISIT Date of Service: 04/15/25 MR#: [id number] Acct: [id number] Name: ROMERO GRAY Rep #: [id number] : 1950 Provider: Dr. Abran mcclain MD Age/Sex: 74/F Location: [facility] Status: Signed Intake Vital Signs 07/28/24 [...] Reasons: Annual/Physical Chief Complaint: no acute concerns Direct Sales Consultant Required: No Accompanied by: Self Is patient [...] you fallen in the past year?: No [facility] Medical History Recurrent Clostridioides difficile diarrhea Hammer toe TIA (transient ischemic attack) Psoriasis Thyroid disease GERD (gastroesophageal reflux disease) Osteopenia Neuropathy Carpal tunnel syndrome Arthritis Atherosclerosis of coronary artery of [place] heart without angina pectoris Non-STEMI (non-ST elevated [...] HPI Chief Complaint: no acute concerns Details: ORMERO GRAY, is a 74 F who presents [...] fecal transplant after she was referred to [facility] however there were no further [...] readily p (more content not included)... Normal [facility] Cardiology Visit Reporton Cardiology Visit Report [facility] [address] [place] [address] OFFICE VISIT Date of Service: 03/31/25 MR#: [id number] Acct: [id number] Name: ROMERO GRAY Rep #: [id number] : 1950 Provider: MER Engle Age/Sex: 74/F Location: [facility] Status: Signed HPI HPI History of Present [...] Monitor Intake Visit Reasons: 8 M FU Direct Sales Consultant Required: No Accompanied by: Self Is patient [...] syndrome Arthritis Atherosclerosis of coronary artery of [place] heart without angina pectoris Non-STEMI (non-ST elevated [...] Ears: he (more content not included)... Normal [facility] Breast imaging reportOrdered By: Rogerio Kirby on 10-12-2024 Study report [facility] Imaging Services [address] [place], [place] [id number] SCRN MAMM (CAD)W/MARS BILAT MR#: [id number] Acct: [id number] Name: ROMERO GRAY Rep #: [id number] : 1950 F 74 From: Jose E Kirby MD PCP: Dr. Abran Yanes MD Status: REG CLI Study:SCRN MAMM (CAD)W/MARS BILAT Date of Exa m: 10/12/24 Exam# [id number] Ordering Dr: Abran Yanes MD PROCEDURE: SCRN [...] of the results by letter. Reading Location: [id number]-R CC: Dr. Abran Yanes MD ~ Supervisor Sewer System: Signed [facility] SCRN MAMM (CAD)W/MARS BILATo n 10-12-2024 SCRN MAMM (CAD)W/MARS BILAT [facility] Imaging Services [address] [place] [address] [id number] SCRN MAMM (CAD)W/MARS BILAT MR#: [id number] Acct: [id number] Name: ROMERO GRAY Rep #: [id number] : 1950 F 74 From: Rogerio mcmanus MD PCP: Dr. Abran Yanes MD Status: [facility] Study: SCRN MAMM (CAD)W/MARS BILAT Date of Exam: 09/20 12/11 Exam# [id number] Ordering Dr: Abran Yanes MD PROCEDURE: SCRN [...] Location: NAZ CC: Dr. Abran Yanes MD Supervisor Sewer System: Signed Normal [facility] Cardiology Visit Reporton Cardiology Visit Report [facility] [address] [place], [place] [address] OFFICE VISIT Date of Service: 07/28/24 MR#: [id number] Acct: [id number] Name: ROMERO GRAY Rep #: [id number] : 1950 Provider: Dr. Dash Prabhakar MD Age/Sex: 74/F Location: [facility] Status: Signed HPI HPI History of Present [...] Visit Reasons: 3 mo f/u after [employer] Direct Sales Consultant Required: No Accompanied by: Self Is patient [...] syndrome Arthritis Atherosclerosis of coronary artery of [place] heart without angina pectoris Non-STEMI (non-ST elevated [...] Normal [facility] 07-22-2024 [facility] Telephone (GST[facility]) ---- ROMERO GRAY ([id number]) 1950 F Date Time Provider Department 07/22/24 [...] Encounter Status:Closed by HERBER CHAN on 07/22/24 [facility] Dang 07-20-2024 [facility] Office Visit (GSTNOR) ---- ROMERO GRAY ([id number]) 1950 F Date Time Provider Department 07/20/24 [...] for internal providers or letter via the [employer] for external providers. 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 Normal [facility] Echo Limited w/Contraston Echo Limited w/Contrast [facility] Cardiovascular Services [address] [place] [address] Echo Limited w/Contrast 07/03/24 0959 MR#: [id number] Acct: [id number] Name: ROMERO GRAY Rep #: [id number] : 1950 74 From: Dash Prabhakar MD Attending Dr: Bela Roberson SIGNALLING AND COMMUNICATIONS ENGINEER-C Status: [facility] Ordering Dr: Bela Roberson SIGNALLING AND COMMUNICATIONS ENGINEER SIGNALLING AND COMMUNICATIONS ENGINEER-C Date: 07/03/24 Location: [facility] Sex: F C [...] 07/03/24 1255 Date Dash Prabhakar MD CC: SIGNALLING AND COMMUNICATIONS ENGINEER-C Bela Roberson; Dr. Abran Yanes MD Date Dictated: 07/03/2459 Date Transcribed: 07/03/24 1255 Supervisor Sewer System: Signed [facility] Office Visit Reporton 2023 Office Visit Report [facility] Services [address] [place] [address] OFFICE VISIT Date of Service: 06/29/24 MR#: [id number] Acct: [id number] Patient: ROMERO GRAY Rep #: [id number] : 1950 Provider: IMB NURSE Age/Sex: 74/F Location: [facility] Status: Signed Intake Vital Signs 06/04/24 07:48 Height 5 ft 5 in Intake Visit Reasons: Flu Shot Chief Complaint: 2 week f/u Allergies Sulfa (Sulfonamide Antibiotics) Allergy (Verified 06/03/24 11:09) Rash Have you fallen in the past year?: No Immunizations Fluad Triv (65y up)(PF) 45 mcg (15 mcg x 3)/0.5 mL IM syringe Performing Provider: Abran Yanes MD Performing Location: [facility] Administered by: Gia Felipe RN on 06/29/24 14:23 Dose Route Admin Location Dispensed Lot Number Expiration Date NDC Man ufacturer 45 mcg IM Right Deltoid 0.5 mL [id number] 12/18/24 28803-325-50 [employer] VIS Given Date VIS Provided VIS [...] Salcedo Signature: Date (if applicable) CC: Normal [facility] Cardiology Visit Reporton Cardiology Visit Report [facility] [address] [place] [address] OFFICE VISIT Date of Service: 06/03/24 MR#: [id number] Acct: [id number] Name: ROMERO GRAY Rep #: [id number] : 1950 Provider: EFREN barr Age/Sex: 74/F Location: [facility] Status: Signed HPI HPI History of Present Illness Details: ROMERO GRAY, is a 74 F who presents to the office today for a cardiovascular follow-up. Patient was recently discharged from [facility] where she was admitted April 26 through [...] 93 Intake Visit Reasons: 1 M FU Direct Sales Consultant Required: No Is patient in pain?: No [...] the past year?: No PFSH Medical History (Reviewed 06/03/24 @ 13:06 by Bela Roberson SIGNALLING AND COMMUNICATIONS ENGINEER, SIGNALLING AND COMMUNICATIONS ENGINEER-C) Recurrent Clostridioides difficile diarrhea Hammer toe TIA (transient ischemic attack) Psoriasis Thyroid disease GERD (gastroesophageal reflux disease) Osteopenia Neuropathy Carpal tunnel syndrome Arthritis Atherosclerosis of coronary artery of [place] heart without angina pectoris Non-STEMI (non-ST elevated [...] History household (more content not included)... Normal [facility] Basic Metabolic Profile (BMP )on 05-27-2024 BUN/CRE 16.4 RATIO Normal 06-07 [facility] Comment on above: Performed By: #### L 500.2500 #### [facility] [address] [place], [place], [id number] CA,Total 9.9 mg/dL Normal 8.5-10.1 [facility] Comment on above: Performed By: #### L 500.2500 #### [facility] [address] [place], [address] Chloride [Moles/Vol] 106 mmol/L Normal 98-107 [facility] Comment on above: Performed By: #### L 500.2500 #### [facility] [address] [place], [address] CO2 [Moles/Vol] 27.0 mmol/L Normal 21.0-32.0 [facility] Comment on above: Performed By: #### L 500.2500 #### [facility] [address] [place], [address] Creatinine [Mass/Vol] 0.92 mg/dL Normal 0.55-1.02 [facility] Comment on above: Result Comment: The validity of the calculated GFR GFRAA in patients over 70 years has not been determined. Clinical correlation is essential. Performed By: #### L 500.2500 #### [facility] [address] [place], [address] EST GFR - AA 77 mL/min Normal >60 [facility] Comment on above: Result Comment: Afri can Sammarinese GFR Calc Performed By: #### L 500.2500 #### [facility] [address] [place], [address] GAP 6 Normal 5-15 [facility] Comment on above: Performed By: #### L 500.2500 #### [facility] [address] [place], [address] GFR/1.73 sq M.predicted among non-blacks MDRD (S/P/Bld) [Vol rate/Area] 64 mL/min/{1.73_m2} Normal >60 [facility] Comment on above: Result Comment: Non- GFR Calc Performed By: #### L 500.2500 #### [facility] [address] [place], [address] Glucose [Mass/Vol] 100 mg/dL Normal 74-106 [facility] Comment on above: Result Comment: Fast ing Glucose result from 100 to 125 mg/dL suggests IMPAIRED HOMEOSTASIS per A.D.A. criteria. Performed By: #### L 500.2500 #### [facility] [address] [place], [address] Potassium [Moles/Vol] 4.4 mmol/L Normal 3.5-5.1 [facility] Comment on above: Performed By: #### L 500.2500 #### [facility] [address] [place], [address] Sodium [Moles/Vol] 139 mmol/L Normal 136-145 [facility] Comment on above: Performed By: #### L 500.2500 #### [facility] [address] [place], [address] Urea nitrogen [Mass/Vol] 15 mg/dL Normal 7-18 [facility] Comment on above: Performed By: #### L 500.2500 #### [facility] [address] [place], [address] CDIFF (PCR)on 05-20-2024 CDIFF A positive C. difficile molecular test does not differentiate between an active C. difficile infection and C. difficile colonization. Use clinical judgement and paired toxin/antigen testing to identify true infection and need for treatment. C diff DNA Spec Ql BRETT+probe Reference Range: Negative [employer] GeneXpert: polymerase chain reaction (PCR) 027 027 NAP1-B1 Presumptive Negative *for epidemiolologic???u se C. Diff PCR A Positive-Toxigenic C. Difficile Detected A Normal [facility] Comment on above: Performed By: #### M 100.6796, M100.6795 ####[facility] [address] [place], [address] Clostridium Diff Toxin/Agon 05-20-2024 CDIFF (EIA) RESULTS [...] Difficile (EIA) A Toxigenic C. difficile Normal [facility] Comment on above: Performed By: #### L 500.2500 #### [facility] [address] [place], [address] Basic Metabolic Profile (BMP )on 05-13-2024 BUN/CRE 16.7 RATIO Normal 10- [facility] Comment on above: Performed By: #### L 500.2500 #### [facility] [address] [place], [address] CA,Total 9.5 mg/dL Normal 8.5-10.1 [facility] Comment on above: Performed By: #### L 500.2500 #### [facility] [address] [place], [address] Chloride [Moles/Vol] 98 mmol/L Normal 98-107 [facility] Comment on above: Performed By: #### L 500.2500 #### [facility] [address] [place], [address] CO2 [Moles/Vol] 26.0 mmol/L Normal 21.0-32.0 [facility] Comment on above: Performed By: #### L 500.2500 #### [facility] [address] [place], [address] Creatinine [Mass/Vol] 1.08 mg/dL High 0.55-1.02 [facility] Comment on above: Result Comment: The validity of the calculated GFR GFRAA in patients over 70 years has not been determined. Clinical correlation is essential. Performed By: #### L 500.2500 #### [facility] [address] [place], [address] EST GFR - AA 64 mL/min Normal >60 [facility] Comment on above: Result Comment: Afri can Sammarinese GFR Calc Performed By: #### L 500.2500 #### [facility] [address] [place], [address] GAP 6 Normal 5-15 [facility] Comment on above: Performed By: #### L 500.2500 #### [facility] [address] [place], [address] GFR/1.73 sq M.predicted among non-blacks MDRD (S/P/Bld) [Vol rate/Area] 53 mL/min/{1.73_m2} Low >60 [facility] Comment on above: Result Comment: Non- GFR Calc Performed By: #### L 500.2500 #### [facility] [address] [place], [address] Glucose [Mass/Vol] 125 mg/dL High 74-106 [facility] Comment on above: Result Comment: Fast ing Glucose result from 100 to 125 mg/dL suggests IMPAIRED HOMEOSTASIS per A.D.A. criteria. Performed By: #### L 500.2500 #### [facility] [address] [place], [address] Potassium [Moles/Vol] 4.2 mmol/L Normal 3.5-5.1 [facility] Comment on above: Performed By: #### L 500.2500 #### [facility] [address] [place], [address] Sodium [Moles/Vol] 130 mmol/L Low 136-145 [facility] Comment on above: Performed By: #### L 500.2500 #### [facility] [address] [place], [address] Urea nitrogen [Mass/Vol] 18 mg/dL Normal 7-18 [facility] Comment on above: Performed By: #### L 500.2500 #### [facility] [address] [place], [address] CR - History AND Physicalon 05-05-2024 CR - History & Physical [facility] [address] [address] CR - History Physical MR#: [id number] Acct: [id number] Name: ROMERO GRAY Rep #: [id number] : 1950 74 From: Fadi Webster BS, RVT PCP: Dr. Abran Yanes MD DOS: 05/05/24 CR - History Physical General Arrival date:: 05/05/24 Arrival time:: 10:05 Date of Referral:: 04/28/24 Date of CR Evaluation:: 05/05/24 Referring Physician: Dr. Prabhakar Primary Diagnosis: HI- NonSTEMI<12months History of Present Cardiac Event Onset [...] Negative Advanced Directives Advanced Directives Power of Finishing Range Supervisor: Yes Living Will: Yes Advance Directives Information [...] syndrome Arthritis Atherosclerosis of coronary artery of [place] heart without angina pectoris Non-STEMI (non-ST elevated [...] Risk Factor Assessment Chief Complaint Chief Complaint: HI-NonSTEMI<12month s Vital Signs Pulse Ox: 93 Blood Pressure: 102/66 Pulse Pulse Rate: 65 Pulse Rhythm: Regular Hypertension How long have you been treated?: 30 yr Blood Pressure Sitting - Right Arm: 102/66 Diabetes Nutrition Referral for Diabetes: No Obesity H (more content not included)... Normal [facility] MR/BMS.[facility] 05-04-2024 MR/BMS.[facility] [address] [place] [address] OFFICE VISIT Date of Service: 05/04/24 MR#: [id number] Acct: [id number] Name: ROMERO GRAY Rep #: [id number] : 1950 Provider: Dr. Abran mcclain MD Age/Sex: 74/F Location: [facility] Status: Signed Intake Vital Signs 04/26/24 [...] room air room air Intake Visit Reasons: [facility] Discharge FU Chief Complaint: 2 week f/u Direct Sales Consultant Required: No Accompanied by: Self Is patient [...] syndrome Arthritis Atherosclerosis of coronary artery of [place] heart without angina pectoris Non-STEMI (non-ST elevated [...] leg trina (more content not included)... Normal [facility] Cardiology Visit Reporton Cardiology Visit Report [facility] [address] [place] [address] OFFICE VISIT Date of Service: 04/30/24 MR#: [id number] Acct: [id number] Name: ROMERO GRAY Rep #: [id number] : 1950 Provider: Dr. Gentry palomino MD Age/Sex: 74/F Location: [facility] Status: Signed [facility] History of Present Illness Details: ROMERO GRAY, is a 74 F who presents to the office today for a cardiovascular follow-up. 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 Intake Vital Signs 04/26/24 22:53 04/30/24 08:30 Height 5 ft 5 in 5 ft 5 in Weight: 199 lb BMI 33.1 BP 123/80 H Blood Pressure Location Rt brachial Position Sitting Respiration 18 Pulse 69 Pulse Source Monitor Pulse Oximetry (%) 95 Oxygen Delivery Method room air Intake Visit Reasons: [facility] NSTEMI 04/28 Direct Sales Consultant Required: No Accompanied by: Is patient in [...] you fallen in the past year?: No [facility] Medical History Recurrent Clostridioides difficile diarrhea Hammer toe TIA (transient ischemic attack) Psoriasis Thyroid disease GERD (gastroesophageal reflux disease) Osteopenia Neuropathy Carpal tunnel syndrome Arthritis Atherosclerosis of coronary artery of [place] heart without angina pectoris Non-STEMI (non-ST elevated myocardial infarction) ( 07/2017) Hypertension Hyperlipidemia Surgical History History of left knee replacement History of colonoscopy (07/02/17) Histor (more content not included)... Normal [facility] Basic Metabolic Profile (BMP )on 04-28-2024 BUN/CRE 13.3 RATIO Normal 10-20 [facility] Comment on above: Performed By: #### L 100.0500, L500.2500 #### [facility] [address] [place], [address] CA,Total 9.2 mg/dL Normal 8.5-10.1 [facility] Comment on above: Performed By: #### L 100.0500, L500.2500 #### [facility] [address] [place], [address] Chloride [Moles/Vol] 106 mmol/L Normal 98-107 [facility] Comment on above: Performed By: #### L 100.0500, L500.2500 #### [facility] [address] [place], [address] CO2 [Moles/Vol] 27.0 mmol/L Normal 21.0-32.0 [facility] Comment on above: Performed By: #### L 100.0500, L500.2500 #### [facility] [address] [place], [address] Creatinine [Mass/Vol] 0.90 mg/dL Normal 0.55-1.02 [facility] Comment on above: Result Comment: The validity of the calculated GFR GFRAA in patients over 70 years has not been determined. Clinical correlation is essential. Performed By: #### L 100.0500, L500.2500 #### [facility] [address] [place], [address] ECRCL 62.08 ml/min Normal [facility] Comment on above: Performed By: #### L 100.0500, L500.2500 #### [facility] [address] [place], [address] EST GFR - AA 79 mL/min Normal >60 [facility] Comment on above: Result Comment: Afri can Sammarinese GFR Calc Performed By: #### L 100.0500, L500.2500 #### [facility] [address] [place], [address] GAP 3 Low 5-15 [facility] Comment on above: Performed By: #### L 100.0500, L500.2500 #### [facility] [address] [place], [address] GFR/1.73 sq M.predicted among non-blacks MDRD (S/P/Bld) [Vol rate/Area] 65 mL/min/{1.73_m2} Normal >60 [facility] Comment on above: Result Comment: Non- GFR Calc Performed By: #### L 100.0500, L500.2500 #### [facility] [address] [place], [address] Glucose [Mass/Vol] 114 mg/dL High 74-106 [facility] Comment on above: Result Comment: Fast ing Glucose result from 100 to 125 mg/dL suggests IMPAIRED HOMEOSTASIS per A.D.A. criteria. Performed By: #### L 100.0500, L500.2500 #### [facility] [address] [place], [address] Potassium [Moles/Vol] 4.0 mmol/L Normal 3.5-5.1 [facility] Comment on above: Performed By: #### L 100.0500, L500.2500 #### [facility] [address] [place], [address] Sodium [Moles/Vol] 136 mmol/L Normal 136-145 [facility] Comment on above: Performed By: #### L 100.0500, L500.2500 #### [facility] [address] [place], [address] Urea nitrogen [Mass/Vol] 12 mg/dL Normal 7-18 [facility] Comment on above: Performed By: #### L 100.0500, L500.2500 #### [facility] [address] [place], [address] CBC-Complete Blood Cnt No Di ffon 04-28-2024 Erythrocyte distribution width (RBC) [Ratio] 14.6 % Normal 11.6-14.6 [facility] Comment on above: Performed By: #### L 100.0500, L500.2500 #### [facility] [address] [place], [address] Hematocrit (Bld) [Volume fraction] 39.1 % Normal 37-47 [facility] Comment on above: Performed By: #### L 100.0500, L500.2500 #### [facility] [address] [place], [address] Hemoglobin (Bld) [Mass/Vol] 13.1 g/dL Normal 12.0-15.0 [facility] Comment on above: Performed By: #### L 100.0500, L500.2500 #### [facility] [address] [place], [address] MCH (RBC) [Entitic mass] 32.8 pg High 27.0-32.0 [facility] Comment on above: Performed By: #### L 100.0500, L500.2500 #### [facility] [address] [place], [address] MCHC (RBC) [Mass/Vol] 33.5 g/dL Normal 32-36 [facility] Comment on above: Performed By: #### L 100.0500, L500.2500 #### [facility] [address] [place], [address] MCV (RBC) [Entitic vol] 97.8 fL Normal 81-99 [facility] Comment on above: Performed By: #### L 100.0500, L500.2500 #### [facility] [address] [place], [address] Platelet mean volume (Bld) [Entitic vol] 9.2 fL Normal 6.2-12.0 [facility] Comment on above: Performed By: #### L 100.0500, L500.2500 #### [facility] [address] [place], [address] Platelets (Bld) [#/Vol] 220 10*3/uL Normal 150-450 [facility] Comment on above: Performed By: #### L 100.0500, L500.2500 #### [facility] [address] [place], [address] RBC (Bld) [#/Vol] 4.00 10*6/uL Low 4.2-5.4 [facility] Comment on above: Performed By: #### L 100.0500, L500.2500 #### [facility] [address] [place], [address] RDW SD 53.2 fl High 35.1-43.9 [facility] Comment on above: Performed By: #### L 100.0500, L500.2500 #### [facility] [address] [place], [address] WBC (Bld) [#/Vol] 8.1 10*3/uL Normal 4.4-11.0 [facility] Comment on above: Performed By: #### L 100.0500, L500.2500 #### [facility] [address] [place], [address] Discharge Instructionon 04-19 Discharge Instruction [facility] Medical Records Department [address] [place] [address] Instructions for Home/Discharge Instructions 04/28/24 1023 MR#: [id number] Acct: [id number] Name: ROMERO GRAY Rep #: [id number] : 1950 74 From: Beatris Atkins MD [...] to schedule your hospital follow-up appointment (ph [phone])) Abran Yanes MD [Primary Care Provider] - Within 1 Week Disposition Disposition (needs filled in before D/C Order can be placed): Home, Self Care 04/28/24 1031 Beatris Atkins MD CC: Dr. Liliya Ballard MD; Dr. Dash Prabhakar MD; Dr. Abran Yanes MD Signed Normal [facility] CBC W/Diff, Automatedon 09- Absolute Lymph 2.02 X10 3/uL Normal 0.83-4.51 [facility] Comment on above: Performed By: #### L 100.0100, L500.4050, L500.4100 #### [facility] [address] [place], [address] Absolute Neut 5.3 X10 3/uL Normal 2.0-7.7 [facility] Comment on above: Performed By: #### L 100.0100, L500.4050, L500.4100 #### [facility] [address] [place], [address] Basophils/100 WBC (Bld) 0.5 % Normal 0-1 [facility] Comment on above: Performed By: #### L 100.0100, L500.4050, L500.4100 #### [facility] [address] [place], [address] Eosinophils/100 WBC (Bld) 2.8 % Normal 0-5 [facility] Comment on above: Performed By: #### L 100.0100, L500.4050, L500.4100 #### [facility] [address] [place], [address] Erythrocyte distribution width (RBC) [Ratio] 14.3 % Normal 11.6-14.6 [facility] Comment on above: Performed By: #### L 100.0100, L500.4050, L500.4100 #### [facility] [address] [place], [address] Hematocrit (Bld) [Volume fraction] 38.0 % Normal 37-47 [facility] Comment on above: Performed By: #### L 100.0100, L500.4050, L500.4100 #### [facility] [address] [place], [address] Hemoglobin (Bld) [Mass/Vol] 12.9 g/dL Normal 12.0-15.0 [facility] Comment on above: Performed By: #### L 100.0100, L500.4050, L500.4100 #### [facility] [address] [place], [address] IG% 0.200 Normal 0.0-0.9 [facility] Comment on above: Result Comment: IG% - Immature Granulocytes (promyelocytes, myelocytes and metamyelocytes) > 1% indicates that a LEFT SHIFT is Present. Performed By: #### L 100.0100, L500.4050, L500.4100 #### [facility] [address] [place], [address] Lymphocytes/100 WBC (Bld) 23.6 % Normal 19-41 [facility] Comment on above: Performed By: #### L 100.0100, L500.4050, L500.4100 #### [facility] [address] [place], [address] MCH (RBC) [Entitic mass] 32.7 pg High 27.0-32.0 [facility] Comment on above: Performed By: #### L 100.0100, L500.4050, L500.4100 #### [facility] [address] [place], [address] MCHC (RBC) [Mass/Vol] 33.9 g/dL Normal 32-36 [facility] Comment on above: Performed By: #### L 100.0100, L500.4050, L500.4100 #### [facility] [address] [place], [address] MCV (RBC) [Entitic vol] 96.4 fL Normal 81-99 [facility] Comment on above: Performed By: #### L 100.0100, L500.4050, L500.4100 #### [facility] [address] [place], [address] Monocytes/100 WBC (Bld) 10.7 % High 0-10 [facility] Comment on above: Performed By: #### L 100.0100, L500.4050, L500.4100 #### [facility] [address] [place], [address] Neutrophils/100 WBC (Bld) 62.2 % Normal 47-70 [facility] Comment on above: Performed By: #### L 100.0100, L500.4050, L500.4100 #### [facility] [address] [place], [address] Nucleated RBC (Bld) [#/Vol] 0 10*3/uL Normal 0-5 [facility] Comment on above: Performed By: #### L 100.0100, L500.4050, L500.4100 #### [facility] [address] [place], [address] Platelet mean volume (Bld) [Entitic vol] 9.1 fL Normal 6.2-12.0 [facility] Comment on above: Performed By: #### L 100.0100, L500.4050, L500.4100 #### [facility] [address] [place], [address] Platelets (Bld) [#/Vol] 219 10*3/uL Normal 150-450 [facility] Comment on above: Performed By: #### L 100.0100, L500.4050, L500.4100 #### [facility] [address] [place], [address] RBC (Bld) [#/Vol] 3.94 10*6/uL Low 4.2-5.4 [facility] Comment on above: Performed By: #### L 100.0100, L500.4050, L500.4100 #### [facility] [address] [place], [address] RDW SD 50.4 fl High 35.1-43.9 [facility] Comment on above: Performed By: #### L 100.0100, L500.4050, L500.4100 #### [facility] [address] [place], [address] WBC (Bld) [#/Vol] 8.6 10*3/uL Normal 4.4-11.0 [facility] Comment on above: Performed By: #### L 100.0100, L500.4050, L500.4100 #### [facility] [address] [place], [address] Cardiac Cath [facility]icon Cardiac Cath Diagnostic [facility] Imaging Services [address] [place] [address] Cardiac Cath Diagnostic MR#: [id number] Acct: [id number] Name: ROMERO GRAY Rep #: [id number] : 1950 74 From: Dash Prabhakar MD PCP: Dr. Abran Yanes MD Status:ADM IN Patient Name: ROMERO GRAY Study Date: 04/27/2024 Performing: Dash Prabhakar MD Ht: 65 inches 165.1 cm : 1950 Wt: 200.84 lbs 91.1 kg Age: 74 Gender: female BSA: 1.98 PROCEDURE(S) PERFORMED DC01-(50283)LHC/COR /LV CLINICAL PROFILE AND INDICATIONS Indications: Suspected [...] multiple views using a 5 Fr. 4.0 [place] catheter. Right Coronary Artery selective angiography was then performed in multiple views using a 5 Fr. 4.0 [place] catheter. Left Ventriculography was performed in [place] [...] MD Date Dictated: 04/27/2454 Date Transcribed: 04/27/24932 Supervisor Sewer System: [place] Signed Normal [facility] Metabolic Prof ilon 04-27-2024 Albumin [Mass/Vol] 2.8 g/dL Low 3.2-5.0 [facility] Comment on above: Performed By: #### L 100.0100, L500.4050, L500.4100 #### [facility] [address] [place], [address] Albumin/Globulin [Mass ratio] 0.9 {ratio} Normal 0.9-2.4 [facility] Comment on above: Performed By: #### L 100.0100, L500.4050, L500.4100 #### [facility] [address] [place], [address] ALK P 44 U/L Low 45-117 [facility] Comment on above: Performed By: #### L 100.0100, L500.4050, L500.4100 #### [facility] [address] [place], [address] ALT [Catalytic activity/Vol] 33 U/L Normal 13-56 [facility] Comment on above: Performed By: #### L 100.0100, L500.4050, L500.4100 #### [facility] [address] [place], [address] AST [Catalytic activity/Vol] 75 U/L High 15-37 [facility] Comment on above: Performed By: #### L 100.0100, L500.4050, L500.4100 #### [facility] [address] [place], [address] Bilirubin [Mass/Vol] 0.70 mg/dL Normal 0.20-1.00 [facility] Comment on above: Result Comment: For patients on eltrombopag therapy, use of Dimension [place] TBIL is not recommended. Performed By: #### L 100.0100, L500.4050, L500.4100 #### [facility] [address] [place], [address] BUN/CRE 25.8 RATIO High 10-20 [facility] Comment on above: Performed By: #### L 100.0100, L500.4050, L500.4100 #### [facility] [address] [place], [address] CA,Total 8.7 mg/dL Normal 8.5-10.1 [facility] Comment on above: Performed By: #### L 100.0100, L500.4050, L500.4100 #### [facility] [address] [place], [address] Chloride [Moles/Vol] 103 mmol/L Normal 98-107 [facility] Comment on above: Performed By: #### L 100.0100, L500.4050, L500.4100 #### [facility] [address] [place], [address] CO2 [Moles/Vol] 25.0 mmol/L Normal 21.0-32.0 [facility] Comment on above: Performed By: #### L 100.0100, L500.4050, L500.4100 #### [facility] [address] [place], [address] Creatinine [Mass/Vol] 0.85 mg/dL Normal 0.55-1.02 [facility] Comment on above: Result Comment: The validity of the calculated GFR GFRAA in patients over 70 years has not been determined. Clinical correlation is essential. Performed By: #### L 100.0100, L500.4050, L500.4100 #### [facility] [address] [place], [address] ECRCL 65.73 ml/min Normal [facility] Comment on above: Performed By: #### L 100.0100, L500.4050, L500.4100 #### [facility] [address] [place], [address] EST GFR - AA 84 mL/min Normal >60 [facility] Comment on above: Result Comment: Afri can [place] GFR Calc Performed By: #### L 100.0100, L500.4050, L500.4100 #### [facility] [address] [place], [address] GAP 6 Normal 5-15 [facility] Comment on above: Performed By: #### L 100.0100, L500.4050, L500.4100 #### [facility] [address] [place], [address] GFR/1.73 sq M.predicted among non-blacks MDRD (S/P/Bld) [Vol rate/Area] 69 mL/min/{1.73_m2} Normal >60 [facility] Comment on above: Result Comment: Non- GFR Calc Performed By: #### L 100.0100, L500.4050, L500.4100 #### [facility] [address] [place], [address] Globulin (S) [Mass/Vol] 3.1 g/dL Normal 2.2-4.2 [facility] Comment on above: Performed By: #### L 100.0100, L500.4050, L500.4100 #### [facility] [address] [place], [address] Glucose [Mass/Vol] 113 mg/dL High 74-106 [facility] Comment on above: Result Comment: Fast ing Glucose result from 100 to 125 mg/dL suggests IMPAIRED HOMEOSTASIS per A.D.A. criteria. Performed By: #### L 100.0100, L500.4050, L500.4100 #### [facility] [address] [place], [address] Potassium [Moles/Vol] 3.6 mmol/L Normal 3.5-5.1 [facility] Comment on above: Performed By: #### L 100.0100, L500.4050, L500.4100 #### [facility] [address] [place], [address] Sodium [Moles/Vol] 134 mmol/L Low 136-145 [facility] Comment on above: Performed By: #### L 100.0100, L500.4050, L500.4100 #### [facility] [address] [place], [address] T PROT 5.9 g/dL Low 6.4-8.2 [facility] Comment on above: Performed By: #### L 100.0100, L500.4050, L500.4100 #### [facility] [address] [place], [address] Urea nitrogen [Mass/Vol] 22 mg/dL High 7-18 [facility] Comment on above: Performed By: #### L 100.0100, L500.4050, L500.4100 #### [facility] [address] [place], [address] Consultation - Cardiologyon 04-27-2024 Consultation - Cardiology [facility] Medical Records Department [address] [place] [address] Consultation - Cardiology 04/27/24 0804 MR#: [id number] Acct: [id number] Name: ROMERO GRAY Rep #: [id number] : 1950 74 From: Dash Prabhakar MD PCP: Dr. Abran Yanes MD Status:ADM IN Location: [place] [address] Assessment Plan Assessment/Plan (1) NSTEMI, initial episode [...] started just before she went to the [facility]. She says that she persisted went on [...] She is also had bilateral knee replacements. [facility] Medical History Recurrent Clostridioides difficile diarrhea Hammer toe TIA (transient ischemic attack) Psoriasis Thyroid disease GERD (gastroesophageal reflux disease) Osteopenia Neuropathy Carpal tunnel syndrome Arthritis Atherosclerosis of coronary artery of [place] heart without angina pectoris Non-STEMI (non-ST elevated [...] alcohol inta (more content not included)... Normal [facility] L501.4020on 04-27-2024 [place] [address] pg/mL Invalid Interpretation Code 3.0-54.0 [facility] Comment on above: Order Comment: 'TROP ' Serial specimen #1, #2 or #3: 3 Result Comment: Crit ical Result(s) Called at: 01:37:42 04/27/2024 by: Sarah Stewart to clyde. Results read back by same. Please Note: New Test Units and Gender Specific Reference Ranges. For more information see Policy Stat Procedure [place] High Sensitivity Troponin (TNIH) and attachments. Performed By: #### L 501.4020 #### [facility] [address] [place], [address] Lipid Profileon 04-27-2024 Cholesterol [Mass/Vol] 145 mg/dL Normal [address] [facility] Comment on above: Result Comment: <200 mg/dL Desirable 200-240 mg/dL Borderline >240 mg/dL High Risk Performed By: #### L 100.0100, L500.4050, L500.4100 #### [facility] [address] [place], [address] Cholesterol in HDL [Mass/Vol] 64 mg/dL Normal [facility] Comment on above: Result Comment: The drugs N-Acetylcysteine and Metamizole may falsely depress this assay. Reference Range HDL <40 mg/dL Low HDL Cholesterol HDL >or= 60 mg/dL High HDL Cholesterol Performed By: #### L 100.0100, L500.4050, L500.4100 #### [facility] [address] [place], [address] Cholesterol in LDL [Mass/Vol] 64 mg/dL Normal 0-130 [facility] Comment on above: Performed By: #### L 100.0100, L500.4050, L500.4100 #### [facility] [address] [place], [address] Cholesterol in VLDL [Mass/Vol] 17 mg/dL Normal 5-40 [facility] Comment on above: Performed By: #### L 100.0100, L500.4050, L500.4100 #### [facility] [address] [place], [address] Triglyceride [Mass/Vol] 83 mg/dL Normal [facility] Comment on above: Result Comment: The drugs N-Acetylcysteine and Metamizole may falsely depress this assay. Serum Triglycerides Reference Interval Normal <150 mg/dL Borderline high 150 - 199 mg/dL High 200 - 499 mg/dL Very High > or = 500 mg/dL Performed By: #### L 100.0100, L500.4050, L500.4100 #### [facility] [address] [place], [address] Partial Thromboplast Timeon 04-27-2024 aPTT Coag (Bld) [Time] 92.0 s Invalid Interpretation Code 24.1-36.2 [facility] Comment on above: Result Comment: CRIT ICAL VALUE VERIFIED. CALLED TO CLYDE 04/27/24 2485 Sarah Stewart. RESULTS READ BACK BY SAME. Performed By: #### L 500.2500 #### [facility] [address] [facility] [place], [address] 12 Lead EKGon 04-26-2024 12 Lead EKG [facility] Cardiovascular Services [address] [place] [address] 12 Lead EKG 04/26/24 2309 MR#: [id number] Acct: [id number] Name: ROMERO GRAY Rep #: [id number] : 1950 74 From: Dash Prabhakar MD Attending Dr: Dr. Beatris Atkins MD Status: ADM IN Ordering Dr: Liliya Ballard MD Date: 04/26/24 Location: [facility] Sex: F C Admitted: 04/26/24 Test [...] IS UNCONFIRMED Confirmed by AKI ALVAREZ, DASH ([id number]), multimedia editor SARAH PAGAN ([id number]) on 04/27/2024 2:51:02 PM Referred By: PATTIE Confirmed By:DASH PRABHAKAR MD 04/27/24 1451 Date Dash Prabhakar MD CC: Dr. Liliya Ballard MD; Dr. Abran Yanes MD; Dr. Beatris Atkins MD Signed [facility] 12 Lead EKG [facility] Cardiovascular Services [address] [place] [address] 12 Lead EKG 04/26/241941 MR#: [id number] Acct: [id number] Name: ROMERO GRAY Rep #: [id number] : 1950 74 From: Dash Prabhakar MD Attending Dr: Dr. Beatris Atkins MD Status: ADM IN Ordering Dr: Trisha Dillon DO Date: 04/26/24 Location: [facility] Sex: F C Admitted: 04/26/24 Test [...] Abnormal ECG Confirmed by DASH PRABHAKAR MD ([id number]), multimedia editor VASILE HENRY ([id number]) on 04/27/2024 12:50:02 PM Referred By: YAKOV Confirmed By:DASH PRABHAKAR MD 04/27/24 1250 Date Dash Prabhakar MD CC: Dr. Trisha Dillon DO; Dr. Abran Yanes MD; Dr. Beatris Atkisn MD Signed [facility] 12 Lead EKG [facility] Cardiovascular Services [address] [place] [address] 12 Lead EKG 04/26/24 1852 MR#: [id number] Acct: [id number] Name: ROMERO GRAY Rep #: [id number] : 1950 74 From: Dash Prabhakar MD Attending Dr: Dr. Beatris Atkins MD Status: ADM IN Ordering Dr: Trisha Dillon DO Date: 04/26/24 Location: [facility] Sex: F C Admitted: 04/26/24 Test [...] Abnormal ECG Confirmed by AKI ALVAREZ, DASH ([id number]), multimedia editor VASILE HENRY ([id number]) on 04/27/2024 12:49:48 PM Referred By: CG Confirmed By:DASH PRABHAKAR MD 04/27/24 1249 Date Dash Prabhakar MD CC: Dr. Trisha Dillon DO; Dr. Abran Yanes MD; Dr. Beatris Atkins MD Signed Normal [facility] Basic Metabolic Profile (BMP )on 04-26-2024 BUN/CRE 23.8 RATIO High 10-20 [facility] Comment on above: Order Comment: 1Y Performed By: #### L 100.0100, L500.2500, L501.5425 ####[facility] [address] [place], [place], [address] CA,Total 9.3 mg/dL Normal 8.5-10.1 [facility] Comment on above: Order Comment: 1Y Performed By: #### L 100.0100, L500.2500, L501.5425 ####[facility] [address] [place], [address] Chloride [Moles/Vol] 101 mmol/L Normal 98-107 [facility] Comment on above: Order Comment: 1Y Performed By: #### L 100.0100, L500.2500, L501.5425 ####[facility] [address] [place], [address] CO2 [Moles/Vol] 25.0 mmol/L Normal 21.0-32.0 [facility] Comment on above: Order Comment: 1Y Performed By: #### L 100.0100, L500.2500, L501.5425 ####[facility] [address] [place], [address] Creatinine [Mass/Vol] 1.22 mg/dL High 0.55-1.02 [facility] Comment on above: Order Comment: 1Y Result Comment: The validity of the calculated GFR GFRAA in patients over 70 years has not been determined. Clinical correlation is essential. Performed By: #### L 100.0100, L500.2500, L501.5425 ####[facility] [address] [place], [address] ECRCL 45.11 ml/min Normal [facility] Comment on above: Order Comment: 1Y Performed By: #### L 100.0100, L500.2500, L501.5425 ####[facility] [address] [place], [address] EST GFR - AA 56 mL/min Low >60 [facility] Comment on above: Order Comment: 1Y Result Comment: Afri can [place] GFR Calc Performed By: #### L 100.0100, L500.2500, L501.5425 ####[facility] [address] [place], [address] GAP 8 Normal 5-15 [facility] Comment on above: Order Comment: 1Y Performed By: #### L 100.0100, L500.2500, L501.5425 ####[facility] [address] [place], [address] GFR/1.73 sq M.predicted among non-blacks MDRD (S/P/Bld) [Vol rate/Area] 46 mL/min/{1.73_m2} Low >60 [facility] Comment on above: Order Comment: 1Y Result Comment: Non- GFR Calc Performed By: #### L 100.0100, L500.2500, L501.5425 ####[facility] [address] [place], [address] Glucose [Mass/Vol] 119 mg/dL High 74-106 [facility] Comment on above: Order Comment: 1Y Result Comment: Fast ing Glucose result from 100 to 125 mg/dL suggests IMPAIRED HOMEOSTASIS per A.D.A. criteria. Performed By: #### L 100.0100, L500.2500, L501.5425 ####[facility] [address] [place], [address] Potassium [Moles/Vol] 3.9 mmol/L Normal 3.5-5.1 [facility] Comment on above: Order Comment: 1Y Performed By: #### L 100.0100, L500.2500, L501.5425 ####[facility] [address] [place], [address] Sodium [Moles/Vol] 134 mmol/L Low 136-145 [facility] Comment on above: Order Comment: 1Y Performed By: #### L 100.0100, L500.2500, L501.5425 ####[facility] [address] [place], [address] Urea nitrogen [Mass/Vol] 29 mg/dL High 7-18 [facility] Comment on above: Order Comment: 1Y Performed By: #### L 100.0100, L500.2500, L501.5425 ####[facility] [address] [place], [address] CBC W/Diff, Automatedon 09-0 8-2024 Absolute Lymph 3.54 X10 3/uL Normal 0.83-4.51 [facility] Comment on above: Performed By: #### L 100.0100, L500.2500, L501.5425 ####[facility] [address] [place], [address] Absolute Neut 5.4 X10 3/uL Normal 2.0-7.7 [facility] Comment on above: Performed By: #### L 100.0100, L500.2500, L501.5425 ####[facility] [address] [place], [address] Basophils/100 WBC (Bld) 0.7 % Normal 0-1 [facility] Comment on above: Performed By: #### L 100.0100, L500.2500, L501.5425 ####[facility] [address] [place], [address] Eosinophils/100 WBC (Bld) 2.8 % Normal 0-5 [facility] Comment on above: Performed By: #### L 100.0100, L500.2500, L501.5425 ####[facility] [address] [place], [address] Erythrocyte distribution width (RBC) [Ratio] 14.2 % Normal 11.6-14.6 [facility] Comment on above: Performed By: #### L 100.0100, L500.2500, L501.5425 ####[facility] [address] [place], [address] Hematocrit (Bld) [Volume fraction] 42.8 % Normal 37-47 [facility] Comment on above: Performed By: #### L 100.0100, L500.2500, L501.5425 ####[facility] [address] [place], [address] Hemoglobin (Bld) [Mass/Vol] 14.4 g/dL Normal 12.0-15.0 [facility] Comment on above: Performed By: #### L 100.0100, L500.2500, L501.5425 ####[facility] [address] [place], [address] IG% 0.200 Normal 0.0-0.9 [facility] Comment on above: Result Comment: IG% - Immature Granulocytes (promyelocytes, myelocytes and metamyelocytes) > 1% indicates that a LEFT SHIFT is Present. Performed By: #### L 100.0100, L500.2500, L501.5425 ####[facility] [address] [place], [address] Lymphocytes/100 WBC (Bld) 34.3 % Normal 19-41 [facility] Comment on above: Performed By: #### L 100.0100, L500.2500, L501.5425 ####[facility] [address] [place], [address] MCH (RBC) [Entitic mass] 32.7 pg High 27.0-32.0 [facility] Comment on above: Performed By: #### L 100.0100, L500.2500, L501.5425 ####[facility] [address] [place], [address] MCHC (RBC) [Mass/Vol] 33.6 g/dL Normal 32-36 [facility] Comment on above: Performed By: #### L 100.0100, L500.2500, L501.5425 ####[facility] [address] [place], [address] MCV (RBC) [Entitic vol] 97.3 fL Normal 81-99 [facility] Comment on above: Performed By: #### L 100.0100, L500.2500, L501.5425 ####[facility] [address] [place], [address] Monocytes/100 WBC (Bld) 9.7 % Normal 0-10 [facility] Comment on above: Performed By: #### L 100.0100, L500.2500, L501.5425 ####[facility] [address] [place], [address] Neutrophils/100 WBC (Bld) 52.3 % Normal 47-70 [facility] Comment on above: Performed By: #### L 100.0100, L500.2500, L501.5425 ####[facility] [address] [place], [address] Nucleated RBC (Bld) [#/Vol] 0 10*3/uL Normal 0-5 [facility] Comment on above: Performed By: #### L 100.0100, L500.2500, L501.5425 ####[facility] [address] [place], [address] Platelet mean volume (Bld) [Entitic vol] 9.7 fL Normal 6.2-12.0 [facility] Comment on above: Performed By: #### L 100.0100, L500.2500, L501.5425 ####[facility] [address] [place], [address] Platelets (Bld) [#/Vol] 246 10*3/uL Normal 150-450 [facility] Comment on above: Performed By: #### L 100.0100, L500.2500, L501.5425 ####[facility] [address] [place], [address] RBC (Bld) [#/Vol] 4.40 10*6/uL Normal 4.2-5.4 [facility] Comment on above: Performed By: #### L 100.0100, L500.2500, L501.5425 ####[facility] [address] [place], [address] RDW SD 51.2 fl High 35.1-43.9 [facility] Comment on above: Performed By: #### L 100.0100, L500.2500, L501.5425 ####[facility] [address] [place], [address] WBC (Bld) [#/Vol] 10.3 10*3/uL Normal 4.4-11.0 [facility] Comment on above: Performed By: #### L 100.0100, L500.2500, L501.5425 ####[facility] [address] [place], [address] Chest 1 View (Portable)on Chest 1 View (Portable) [facility] Services [address] [place] [address] Chest 1 View (Portable) MR#: [id number] Acct: [id number] Name: ROMERO GRAY Rep #: [id number] : 1950 F 74 From: Julio César Miranda PCP: Dr. Abran Yanes MD Status: PRE ER Study: Chest 1 View (Portable) Date of Exam: 04/26/24 Exam# [id number] Ordering Dr: Trisha Dillon DO -[id number] EXAM: XR CHEST, 1 VIEW CLINICAL [...] Trisha Dillon DO; Dr. Abran Yanes MD Supervisor Sewer System: Signed Normal [facility] Echo, Limited Studyon 2023 Echo, Limited Study [facility] [address] [place] [address] Echo, Limited Study 04/27/24 1507 MR#: [id number] Acct: [id number] Name: ROMERO GRAY Rep #: [id number] : 1950 74 From: Dash Prabhakar MD Attending Dr: Dr. Beatris Atkins MD Status: ADM IN Ordering Dr: Liliya Ballard MD Date: 04/26/24 Location: [facility] Sex: F C Admitted: 04/26/24 Reason For Study: NSTEMI Procedure This was a limited 2D transthoracic echocardiogram. Exam performed portable in patient room. Left Ventricle Normal LV size. The left ventricular ejection fraction is 45 %. Stage 1 diastolic dysfunction. Anterior Sabina : Hypokinetic. There are regional wall motion [...] By: Therese Gilliam RDCS and Student 04/27/24 0509 Date Dash Prabhakar MD CC: Dr. Liliya Ballard MD; Dr. Abran Yanes MD; Dr. Beatris Atkins MD Date Dictated: 04/27/24 1507 Date Transcribed: 04/27/24 6360 Supervisor Sewer System: Signed Normal [facility] Emergency Department Summary on 04-26-2024 Emergency Department Summary [facility] Medical Records Department [address] [place] [address] Emergency Department Summary 04/26/24 MR#: [id number] Acct: [id number] Name: ROMERO GRAY Rep #: [id number] : 1950 74 From: Trisha Dillon DO PCP: Dr. Abran Yanes MD Status:ADM IN Location: [address] History of Present Illness Chief Complaint: [...] syndrome Arthritis Atherosclerosis of coronary artery of [place] heart without angina pectoris Non-STEMI (non-ST elevated [...] Respiratory/Chest Respirat (more content not included)... Normal [facility] H AND P Exam - Hospitaliston 04-26-2024 H&P Exam - Hospitalist [facility] Medical Records Department [address] [place] [address] H P Exam - Hospitalist 04/26/242120 MR#: [id number] Acct: [id number] Name: ROMERO GRAY Rep #: [id number] : 1950 74 From: Liliya Ballard MD PCP: Dr. Abran Yanes MD Status:REG ER Location: ED HPI - General General Date of Admission: 04/26/24 Date of Service: 04/26/24 Chief Complaint: Chest pain, Nausea, Diaphoresis, LH/Dizziness. 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 difficile colitis, Hx NSTEMI w/ normal appearing cardiac catheterization felt secondary to vasospasms who presents to the [facility] ED on 04/26/24 with chest discomfort [...] ED discussed case with Dr. Prabhakar Cardiology. [facility] Medical History Recurrent Clostridioides difficile diarrhea Hammer toe TIA (transient ischemic attack) Psoriasis Thyroid disease GERD (gastroesophageal reflux disease) Osteopenia Neuropathy Carpal tunnel syndrome Arthritis Atherosclerosis of coronary artery of [place] heart without angina pectoris Non-STEMI (non-ST elevated [...] History H (more content not included)... Normal [facility] L501.4020on 04-26-2024 TROPONIN-I HS 1843 pg/mL Invalid Interpretation Code 3.0-54.0 [facility] Comment on above: Order Comment: Comme nts: may add to ED labs Result Comment: Crit ical Result(s) Called at: 21:52:19 04/26/2024 by: GINNA CARRILLO TO VITA GUZMAN. Results read back by same. Please Note: New Test Units and Gender Specific Reference Ranges. For more information see Policy Stat Procedure [place] High Sensitivity Troponin (TNIH) and attachments. Performed By: #### L 501.4020, L501.5200 ####[facility] [address] [place], [address] L501.5425on 04-26-2024 TROPONIN-I HS 567 pg/mL Invalid Interpretation Code 3.0-54.0 [facility] Comment on above: Order Comment: 1Y Result Comment: Crit ical Result(s) Called at: 19:58:00 04/26/2024 by: GINNA CARRILLO TO THOMAS JAIN . Results read back by same. Please Note: New Test Units and Gender Specific Reference Ranges. For more information see Policy Stat Procedure [place] High Sensitivity Troponin (TNIH) and attachments. Performed By: #### L 100.0100, L500.2500, L501.5425 ####[facility] [address] [place], [address] Magnesiumon 04-26-2024 Magnesium [Mass/Vol] 1.8 mg/dL Normal 1.6-2.6 [facility] Comment on above: Order Comment: Comme nts: may add to ED labs Performed By: #### L 501.4020, L501.5200 ####[facility] [address] [place], [address] Partial Thromboplast Timeon 04-26-2024 aPTT Coag (Bld) [Time] 27.4 s Normal 24.1-36.[address] [facility] Comment on above: Performed By: #### L 300.4310, L300.3900 ####[facility] [address] [place], [address] Prothrombin Time w/INRon INR Coag (PPP) [Relative time] 1.1 {INR} Normal [facility] Comment on above: Performed By: #### L 300.4310, L300.3900 ####[facility] [address] [place], [address] PT Coag (PPP) [Time] 13.7 s Normal 11.7-14.9 [facility] Comment on above: Performed By: #### L 300.4310, L300.3900 ####[facility] [address] [place], [address] Basophil percentageOrdered B y: Francisco Ellis on 07-23-2023 Basophil percentage 10-25 SEEN /hpf 0-5 [facility] Bilirubin Test strip Ql (U)O rdered By: Francisco Ellis on 07-23-2023 Bilirubin Ql (U) Negative Negative [facility] Culture, urineOrdered By: St yeimi Ellis on 07-23-2023 Bacteria identified Cx Nom (U) Enterococcus faecalis [facility] Ketones Test strip Ql (U)Ord ered By: Francisco Ellis on 07-23-2023 Ketones Ql (U) Negative Negative [facility] Mucus LM Ql (Urine sed)Order ed By: Francisco Ellis on 07-23-2023 Mucus Ql (Urine sed) 0 SEEN /hpf [facility] Nitrite Test strip Ql (U)Ord ered By: Francisco Ellis on 07-23-2023 Nitrite Ql (U) Negative Negative [facility] Protein Test strip Ql (U)Ord ered By: Francisco Ellis on 07-23-2023 Protein Ql (U) 15 mg/dl Negative [facility] Squamous epithelial cells de tection in urine sediment by light microscopyOrdered By: Francisco Ellis on 07-23-2023 Epithelial cells.squamous LM Ql (Urine sed) 0-5 SEEN /hpf 5-10 [facility] Urine blood detectionOrdered By: Francisco Ellis on 07-23-2023 RBC Ql (U) 250 /ul Negative [facility] RBC Ql (U) 25-50 SEEN /hpf 0-5 [facility] Urine clarityOrdered By: Nicko Ellis on 07-23-2023 Clarity (U) Clear Clear [facility] Urine color determinationOrd ered By: Francisco Ellis on 07-23-2023 Color (U) Yellow Yellow [facility] Urine glucose detectionOrder ed By: Francisco Ellis on 07-23-2023 Glucose Ql (U) Normal mg/dl Normal [facility] Urine leukocyte esterase det ection by dipstickOrdered By: Francisco Ellis on 07-23-2023 Leukocyte esterase Test strip Ql (U) 100 /ul Negative [facility] Urine pHOrdered By: Francisco santoro on 07-23-2023 pH (U) 7.0 [pH] 5.0 - 8.0 [facility] Urine sediment bacteria coun t by microscopy (number/high power field)Ordered By: Francisco Ellis on 07-23-2023 Bacteria LM.HPF (Urine sed) [#/Area] 0 /[HPF] None Seen [facility] Urine specific gravity measu rementOrdered By: Francisco Ellis on 07-23-2023 Specific gravity (U) [Rel density] 1.010 1.002-1.030 [facility] Urobilinogen Auto test strip Ql (U)Ordered By: Francisco Ellis on 07-23-2023 Urobilinogen Ql (U) Normal mg/dl Normal [facility] Absolute lymphocyte countOrd ered By: Abran Yanes on 05-21-2023 Lymphocytes Auto (Unsp spec) [#/Vol] 3.28 10*3/uL 0.83-4.51 [facility] Basophil percentageOrdered B y: Abran Yanes on 05-21-2023 Basophils/100 WBC (Bld) 0.9 % 0-1 [facility] Bilirubin [Mass/Vol] 1.10 mg/dL 0.20-1.00 [facility] Comment on above: For patients on eltr ombopag therapy, use of Dimension [place] TBIL is not recommended. Chloride [Moles/Vol] 107 mmol/L 98-107 [facility] Cholesterol [Mass/Vol] 169 mg/dL <[address] [facility] Comment on above: <200 mg/dL Desirable 200-240 mg/dL Borderline >240 mg/dL High Risk Eosinophils/100 WBC (Bld) 3.1 % 0-5 [facility] Glucose [Mass/Vol] 131 mg/dL 74-106 [facility] Comment on above: Fasting Glucose resu lt greater than or equal to 126 mg/dL suggests DIABETES MELLITUS per A.D.A. criteria. Neutrophils (Bld) [#/Vol] 2.7 10*3/uL 2.0-7.7 [facility] Neutrophils/100 WBC (Bld) 37.6 % 47-70 [facility] Potassium [Moles/Vol] 4.1 mmol/L 3.5-5.1 [facility] Protein [Mass/Vol] 7.4 g/dL 6.4-8.2 [facility] Sodium [Moles/Vol] 139 mmol/L 136-145 [facility] Triglyceride [Mass/Vol] 162 mg/dL <199 [facility] Comment on above: The drugs N-Acetylcy steine and Metamizole may falsely depress this assay.Serum Triglycerides Reference Interval Normal <150 mg/dL Borderline high 150 - 199 mg/dL High 200 - 499 mg/dL Very High > or = 500 mg/dL WBC (Bld) [#/Vol] 7.1 10*3/uL 4.4-11.0 [facility] Blood erythrocytes count (nu mber/volume)Ordered By: Abran Yanes on 05-21-2023 RBC (Bld) [#/Vol] 4.73 10*6/uL 4.2-5.4 [facility] Blood hemoglobin measurement (mass/volume)Ordered By: Abran Yanes on 05-21-2023 Hemoglobin (Bld) [Mass/Vol] 15.3 g/dL 12.0-15.0 [facility] Blood lymphocytes/100 leukoc ytesOrdered By: Abran Yanes on 05-21-2023 Lymphocytes/100 WBC (Bld) 46.5 % 19-41 [facility] Blood monocytes/100 leukocyt esOrdered By: Abran Yanes on 05-21-2023 Monocytes/100 WBC (Bld) 11.8 % 0-10 [facility] Blood platelet mean volumeOr dered By: Abran Yanes on 05-21-2023 Platelet mean volume (Bld) [Entitic vol] 9.5 fL 6.2-12.0 [facility] Determination of erythrocyte mean corpuscular volume (MCV)Ordered By: Abran Yanes on 05-21-2023 MCV (RBC) [Entitic vol] 96.6 fL 81-99 [facility] Hematocrit Auto (Bld) [Volum e fraction]Ordered By: Abran Yanes on 05-21-2023 Hematocrit (Bld) [Volume fraction] 45.7 % 37-47 [facility] Laboratory - Chemistry and C hemistry - challengeOrdered By: Abranleigh Yanes on 05-21-2023 ALP [Catalytic activity/Vol] 54 U/L 45-117 [facility] ALT [Catalytic activity/Vol] 35 U/L 13-56 [facility] CO2 [Moles/Vol] 28.0 mmol/L 21.0-32.0 [facility] Free T4 [Mass/Vol] 1.08 ng/dL 0.76-1.46 [facility] Globulin (S) [Mass/Vol] 3.6 g/dL 2.2-4.2 [facility] Magnesium [Mass/Vol] 2.2 mg/dL 1.6-2.6 [facility] Urea nitrogen/Creatinine [Mass ratio] 15.4 mg/mg 10-20 [facility] Laboratory - Hematology and Cell countsOrdered By: Abran Yanes on 05-21-2023 Erythrocyte distribution width (RBC) [Entitic vol] 48.8 fL 35.1-43.9 [facility] Erythrocyte distribution width (RBC) [Ratio] 13.6 % 11.6-14.6 [facility] Immature granulocytes/100 WBC (Bld) 0.100 % 0.0-0.9 [facility] Comment on above: IG% - Immature Granu locytes (promyelocytes, myelocytes and metamyelocytes) > 1% indicates that a LEFT SHIFT is Present. MCH (RBC) [Entitic mass] 32.3 pg 27.0-32.0 [facility] Nucleated RBC/100 WBC (Bld) [Ratio] 0 % 0-5 [facility] MCHC Auto (RBC) [Mass/Vol]Or dered By: Abran Yanes on 05-21-2023 MCHC (RBC) [Mass/Vol] 33.5 g/dL 32-36 [facility] No Panel InformationOrdered By: Abran Yanes on 05-21-2023 Estimated GFR (MDRD) Amer 72 mL/min >60 [facility] Comment on above: GFR Calc Estimated GFR (MDRD) Non-Af Amer 60 mL/min >60 [facility] Comment on above: Non- GFR Calc Free Triiodothyronine (T3) pg/dL 2.3 pg/mL 2.18-3.98 [facility] Thyroid Stimulating Hormone (TSH) 3.16 uIU/mL 0.358-3.74 [facility] Vitamin D 25-Hydroxy 56.6 ng/mL [facility] Comment on above: Vitamin D 25(OH) Sta tus Range Deficiency <20 ng/mL (50nmol/L) Insufficiency 20 - 30 ng/mL (50 - 75 nmol/L) Sufficiency 30 - 100 ng/mL (75 - 250 nmol/L) Toxicity >100 ng/mL (>250 nmol/L) Platelets bldOrdered By: Jesi Yanes on 05-21-2023 Platelets (Bld) [#/Vol] 235 10*3/uL 150-450 [facility] Serum or plasma albumin kassidy urement (mass/volume)Ordered By: Abran Yanes on 05-21-2023 Albumin [Mass/Vol] 3.8 g/dL 3.2-5.0 [facility] Serum or plasma albumin/glob ulin mass ratioOrdered By: Abran Yanes on 05-21-2023 Albumin/Globulin [Mass ratio] 1.1 {ratio} 0.9-2.4 [facility] Serum or plasma calcium kassidy urement (mass/volume)Ordered By: Abran Yanes on 05-21-2023 Calcium [Mass/Vol] 9.8 mg/dL 8.5-10.1 [facility] Serum or plasma cholesterol in HDL measurement (mass/volume)Ordered By: Abran Yanes on 05-21-2023 Cholesterol in HDL [Mass/Vol] 52 mg/dL >40 [facility] Comment on above: The drugs N-Acetylcy steine and Metamizole may falsely depress this assay. Reference Range HDL <40 mg/dL Low HDL Cholesterol HDL >or= 60 mg/dL High HDL Cholesterol Serum or plasma cholesterol in VLDL measurement (mass/volume)Ordered By: Abran Yanes on 05-21-2023 Cholesterol in VLDL [Mass/Vol] 32 mg/dL 5-40 [facility] Serum or plasma creatinine m easurement (mass/volume)Ordered By: Abran Yanes on 05-21-2023 Creatinine [Mass/Vol] 0.97 mg/dL 0.55-1.02 [facility] Comment on above: The validity of the calculated GFR & GFRAA in patients over 70 years has not been determined. Clinical correlation is essential. Serum or plasma low density lipoprotein (LDL) cholesterol measurement (mass/volume)Ordered By: Abran Yanes on 05-21-2023 Cholesterol in LDL [Mass/Vol] 85 mg/dL 0-130 [facility] Serum or plasma urea nitroge n measurement (mass/volume)Ordered By: Abran Yanes on 05-21-2023 Urea nitrogen [Mass/Vol] 15 mg/dL 7-18 [facility] Thin prep Papanicolaou smear with manual screeningOrdered By: Abran Yanes on 05-21-2023 Thin prep Papanicolaou smear with manual screening 32 U/L 15-37 [facility] Thin prep Papanicolaou smear with manual screening 4 5-15 [facility] Whole blood hemoglobin A1c/t otal hemoglobin ratio (mass fraction)Ordered By: Abran Yanes on 05-21-2023 HbA1c (Bld) [Mass fraction] 5.5 % 3.8-5.6 [facility] Comment on above: Normal < 5.7 % Predi abetic 5.7 - 6.4 % Diabetic >or= 6.5 % Please note range changes. Absolute lymphocyte counton 05-07-2022 Lymphocytes Auto (Unsp spec) [#/Vol] 2.38 10*3/uL 0.83-4.51 [facility] Work Phone: Basophil percentageon 2021 Basophils/100 WBC (Bld) 0.7 % 0-1 [facility] Work Phone: Bilirubin [Mass/Vol] 0.70 mg/dL 0.20-1.00 [facility] Work Phone: Comment on above: For patients on eltr ombopag therapy, use of Dimension [place] TBIL is not recommended. Chloride [Moles/Vol] 105 mmol/L 98-107 [facility] Work Phone: Eosinophils/100 WBC (Bld) 6.1 % 0-5 [facility] Work Phone: Glucose [Mass/Vol] 114 mg/dL 74-106 [facility] Work Phone: Comment on above: Fasting Glucose resu lt from 100 to 125 mg/dL suggests IMPAIRED HOMEOSTASIS per A.D.A. criteria. Neutrophils (Bld) [#/Vol] 3.4 10*3/uL 2.0-7.7 [facility] Work Phone: Neutrophils/100 WBC (Bld) 49.0 % 47-70 [facility] Work Phone: Potassium [Moles/Vol] 4.2 mmol/L 3.5-5.1 [facility] Work Phone: Protein [Mass/Vol] 7.6 g/dL 6.4-8.2 [facility] Work Phone: Sodium [Moles/Vol] 140 mmol/L 136-145 [facility] Work Phone: WBC (Bld) [#/Vol] 6.9 10*3/uL 4.4-11.0 [facility] Work Phone: Blood erythrocytes count (nu mber/volume)on 05-07-2022 RBC (Bld) [#/Vol] 4.72 10*6/uL 4.2-5.4 [facility] Work Phone: Blood hemoglobin measurement (mass/volume)on 05-07-2022 Hemoglobin (Bld) [Mass/Vol] 14.8 g/dL 12.0-15.0 [facility] Work Phone: Blood lymphocytes/100 leukoc yteson 05-07-2022 Lymphocytes/100 WBC (Bld) 34.4 % 19-41 [facility] Work Phone: Blood monocytes/100 leukocyt eson 05-07-2022 Monocytes/100 WBC (Bld) 9.7 % 0-10 [facility] Work Phone: Blood platelet mean volumeon 05-07-2022 Platelet mean volume (Bld) [Entitic vol] 9.7 fL 6.2-12.0 [facility] Work Phone: Determination of erythrocyte mean corpuscular volume (MCV)on 05-07-2022 MCV (RBC) [Entitic vol] 94.5 fL 81-99 [facility] Work Phone: Hematocrit Auto (Bld) [Volum e fraction]on 05-07-2022 Hematocrit (Bld) [Volume fraction] 44.6 % 37-47 [facility] Work Phone: Laboratory - Chemistry and C hemistry - challengeon 05-07-2022 ALP [Catalytic activity/Vol] 55 U/L 45-117 [facility] Work Phone: ALT [Catalytic activity/Vol] 31 U/L 13-56 [facility] Work Phone: CO2 [Moles/Vol] 29.0 mmol/L 21.0-32.0 [facility] Work Phone: Free T4 [Mass/Vol] 1.16 ng/dL 0.76-1.46 [facility]: Globulin (S) [Mass/Vol] 3.9 g/dL 2.2-4.2 [facility] Work Phone: Urea nitrogen/Creatinine [Mass ratio] 19.6 mg/mg 10-20 [facility] Work Phone: Laboratory - Hematology and Cell countson 05-07-2022 Erythrocyte distribution width (RBC) [Entitic vol] 46.6 fL 35.1-43.9 [facility] Work Phone: Erythrocyte distribution width (RBC) [Ratio] 13.4 % 11.6-14.6 [facility] Work Phone: Immature granulocytes/100 WBC (Bld) 0.100 % 0.0-0.9 [facility] Work Phone: Comment on above: IG% - Immature Granu locytes (promyelocytes, myelocytes and metamyelocytes) > 1% indicates that a LEFT SHIFT is Present. MCH (RBC) [Entitic mass] 31.4 pg 27.0-32.0 [facility] Work Phone: Nucleated RBC/100 WBC (Bld) [Ratio] 0 % 0-5 [facility] Work Phone: MCHC Auto (RBC) [Mass/Vol]on 05-07-2022 MCHC (RBC) [Mass/Vol] 33.2 g/dL 32-36 [facility] Work Phone: No Panel Informationon 05-07 Estimated GFR (MDRD) Amer 73 mL/min >60 [facility] Work Phone: Comment on above: GFR Calc Estimated GFR (MDRD) Non-Af Amer 60 mL/min >60 [facility] Work Phone: Comment on above: Non- GFR Calc Free Triiodothyronine (T3) pg/dL 2.6 pg/mL 2.18-3.98 [facility] Work Phone: Thyroid Stimulating Hormone (TSH) 1.67 uIU/mL 0.358-3.74 [facility] Work Phone: Vitamin D 25-Hydroxy 45.7 ng/mL [facility] Work Phone: Comment on above: Vitamin D 25(OH) Sta tus Range Deficiency <20 ng/mL (50nmol/L) Insufficiency 20 - 30 ng/mL (50 - 75 nmol/L) Sufficiency 30 - 100 ng/mL (75 - 250 nmol/L) Toxicity >100 ng/mL (>250 nmol/L) Platelets bldon 05-07-2022 Platelets (Bld) [#/Vol] 240 10*3/uL 150-450 [facility] Work Phone: Serum or plasma albumin kassidy urement (mass/volume)on 05-07-2022 Albumin [Mass/Vol] 3.7 g/dL 3.2-5.0 [facility] Work Phone: Serum or plasma albumin/glob ulin mass ratioon 05-07-2022 Albumin/Globulin [Mass ratio] 0.9 {ratio} 0.9-2.4 [facility] Work Phone: Serum or plasma calcium kassidy urement (mass/volume)on 05-07-2022 Calcium [Mass/Vol] 9.6 mg/dL 8.5-10.1 [facility] Work Phone: Serum or plasma creatinine m easurement (mass/volume)on 05-07-2022 Creatinine [Mass/Vol] 0.97 mg/dL 0.55-1.02 [facility] Work Phone: Comment on above: The validity of the calculated GFR & GFRAA in patients over 70 years has not been determined. Clinical correlation is essential. Serum or plasma urea nitroge n measurement (mass/volume)on 05-07-2022 Urea nitrogen [Mass/Vol] 19 mg/dL 7-18 [facility] Work Phone: Thin prep Papanicolaou smear with manual screeningon 05-07-2022 Thin prep Papanicolaou smear with manual screening 26 U/L 15-37 [facility] Work Phone: Thin prep Papanicolaou smear with manual screening 6 5-15 [facility] Work Phone: Whole blood hemoglobin A1c/t otal hemoglobin ratio (mass fraction)on 05-07-2022 HbA1c (Bld) [Mass fraction] 6.1 % 3.8-5.6 [facility] Work Phone: Comment on above: Normal < 5.7 % Predi abetic 5.7 - 6.4 % Diabetic >or= 6.5 % Please note range changes. Final Surgical Pathology Rep florinda 09-13-2021 Final Surgical Pathology Report . Pathology Reports Accession: Collected Date/Time: Received Date/Time: Pathologist: [id number] 09/11/2021 14:50 EST 09/11/2021 14:50 EST DO KATELYNN LIN Final Surgical Pathology Report DIAGNOSIS: PORTIONS OF BONE WITH CHANGES OF DEGENERATIVE OSTEOARTHRITIS, CLINICALLY LEFT KNEE. COMMENT: Rosalba [id number] CLINICAL INFORMATION: LEFT KNEE OSTEOARTHRITIS SPECIMEN: A [...] Electronically Signed by Pathology Report verified by [facility] Electronically signed by KATELYNN LIN DO Sign out Date: 09/13/2021 12:22 Performing Lab: [facility], [address] [place] [address] Normal [facility] [place] BMP with eGFRon 09-12-2021 AGE 71 years Normal [facility] Comment on above: Performed By: #### 2 99995 #### [facility],[address] [place] [address] Anion gap [Moles/Vol] 13 mmol/L Normal 10 - 20 [facility] Comment on above: Performed By: #### 2 28045 #### [place] [address] BMP with eGFR Normal [facility] Comment on above: Result Comment: BASI C METABOLIC PANEL Performed By: #### 2 83483 #### [facility],[address],[place] [address] Calcium [Mass/Vol] 8.0 mg/dL Low 8.5 - 10.1 [facility] Comment on above: Performed By: #### 2 47316 #### [facility],[address] [place] [address] 70555 Chloride [Moles/Vol] 104 mmol/L Normal 98 - 107 [facility] Comment on above: Performed By: #### 2 38580 #### [facility],[address] [place], [place] [address] CO2 [Moles/Vol] 22.2 mmol/L Normal 21.0 - 32.0 [facility] Comment on above: Performed By: #### 2 74779 #### [facility],[address] [place] [address] Creatinine [Mass/Vol] 0.89 mg/dL Normal 0.55 - 1.02 [facility] Comment on above: Performed By: #### 2 72500 #### [facility],[address] [place], [place] [address] GFR/1.73 sq M.predicted among non-blacks MDRD (S/P/Bld) [Vol rate/Area] mL/min/{1.73_m2} Normal 60 - 999 [facility] Comment on above: Performed By: #### 2 03460 #### [facility],[address] [place], [place] [address] Result Comment: ACCO RDING TO THE NATIONAL KIDNEY DISEASE EDUCATION PROGRAM(NKDE), A NORMAL eGFR IS A VALUE GREATER THAN OR EQUAL TO 60 ML/MIN/1.73 SQ METERS. CHRONIC KIDNEY DISEASE: <60mL/MIN/1.73 SQ METERS KIDNEY FAILURE: <15mL/MIN/1.73 SQ METERS THIS TEST SHOULD ONLY BE USED FOR PATIENTS 18 YEARS OF AGE AND OLDER. Glucose [Mass/Vol] 135 mg/dL High 74 - 106 [facility] Comment on above: Performed By: #### 2 12385 #### [facility],[address],[place] [address] Potassium [Moles/Vol] 4.3 mmol/L Normal 3.5 - 5.1 [facility] Comment on above: Performed By: #### 2 49801 #### [facility],[address] [place] [address] 10370 Sodium [Moles/Vol] 135 mmol/L Low 136 - 145 [facility] Comment on above: Performed By: #### 2 12530 #### [facility],[address] [place] [address] 55863 Urea nitrogen [Mass/Vol] 15 mg/dL Normal 7 - 18 [facility] Comment on above: Performed By: #### 2 49639 #### [facility],[address] [place] [address] 60692 CBC + DIFFon 09-12-2021 Baso # 0.00 x10EE3/UL Normal 0.00 - 0.10 [facility] Comment on above: Performed By: #### 2 97634 #### [facility],[address] [place] [address] 53579 Basophils/100 WBC (Bld) 0.2 % Normal 0.0 - 2.0 [facility] Comment on above: Performed By: #### 2 28095 #### [facility],[address] [place] [address] 58469 CBC + DIFF Normal [facility] Comment on above: Result Comment: CBC- COMPLETE BLOOD COUNT Performed By: #### 2 15990 #### [facility],[address] [place] [address] 74051 EO # 0.00 x10EE3/UL Normal 0.00 - 0.50 [facility] Comment on above: Performed By: #### 2 40328 #### [facility],[address] [place] [address] 48847 Eosinophils/100 WBC (Bld) 0.0 % Normal 0.0 - 7.0 [facility] Comment on above: Performed By: #### 2 15894 #### [facility],[address] [place] [address] 57029 Erythrocyte distribution width (RBC) [Ratio] 13.3 % Normal 12.0 - 15.6 [facility] Comment on above: Performed By: #### 2 89684 #### [facility],[address] [place] [address] Hematocrit (Bld) [Volume fraction] 36.4 % Normal 34.0 - 46.0 [facility] Comment on above: Performed By: #### 2 54017 #### [facility],[address] [place] [address] Hemoglobin (Bld) [Mass/Vol] 12.6 g/dL Normal 12.0 - 16.0 [facility] Comment on above: Performed By: #### 2 41472 #### [facility],[address] [place] [address] Lymph # 1.00 x10EE3/UL Normal 0.80 - 2.80 [facility] Comment on above: Performed By: #### 2 79143 #### [facility],[address] [place], [place] [address] Lymphocytes/100 WBC (Bld) 8.1 % Low 20.0 - 45.0 [facility] Comment on above: Performed By: #### 2 51518 #### [facility],[address] [place], [place] [address] MANUAL DIFF N/A Normal [facility] Comment on above: Performed By: #### 2 59593 #### [facility],[address] [place] [address] 60908 MCH (RBC) [Entitic mass] 32 pg Normal 27 - 33 [facility] Comment on above: Performed By: #### 2 24277 #### [facility],[address] [place] [address] 39643 MCHC 35 X10 3 Normal 32 - 36 [facility] Comment on above: Performed By: #### 2 73307 #### [facility],[address] [place] [address] 96430 MCV (RBC) [Entitic vol] 91 fL Normal 80 - 99 [facility] Comment on above: Performed By: #### 2 78663 #### [facility],[address] [place] [address] 87243 [place] # 0.70 x10EE3/UL Normal 0.20 - 1.00 [facility] Comment on above: Performed By: #### 2 44158 #### [facility],[address] [place] [address] 41063 MONOS % 6.0 % Normal 0.0 - 10.0 [facility] Comment on above: Performed By: #### 2 80289 #### [facility],[address] [place] [address] 84379 Morphology Wade (Bld) [Interp] N/A Normal [facility] Comment on above: Result Comment: {CD] Performed By: #### 2 69552 #### [facility],[address] [place] [address] 59886 Neut # 10.40 x10EE3/UL High 1.50 - 7.10 [facility] Comment on above: Performed By: #### 2 15324 #### [facility],[address] [place] [address] 64530 Neutrophils/100 WBC (Bld) 85.7 % High 46.0 - 76.0 [facility] Comment on above: Performed By: #### 2 35463 #### [facility],[address] [place] [address] 88786 PLATELET 193 x10EE3/UL Normal 150 - 450 [facility] Comment on above: Performed By: #### 2 29133 #### [facility],[address] [place] [address] 37674 Platelet mean volume (Bld) [Entitic vol] 7.7 fL Normal 6.6 - 10.5 [facility] Comment on above: Result Comment: AUTO MATED DIFFERENTIAL Performed By: #### 2 96215 #### [facility],[address] [place] [address] 35959 RBC 3.99 x 10EE6/UL Low 4.10 - 5.30 [facility] Comment on above: Performed By: #### 2 14479 #### [facility],[address] [place] [address] 15311 WBC 12.1 x 10EE3/UL High 4.5 - 10.8 [facility] Comment on above: Performed By: #### 2 09369 #### [facility],[address] [place] [address] 59830 KNEE 2 VIEWS LTon 09-11-2021 KNEE 2 VIEWS LT [place] [address] Patient: ROMERO GRAY Phone#: : 1950 Age: 71 Gender: F Pt. Type: Out Account: [id number] Location: [facility] Ordering: PATRICIO DUENAS Exam Date: 09/11/2021/13:22 Family Phys: Charge Code: [id number] Physician: Dare Order #: [id number] DLP Dose#: PROCEDURE: X-RAY KNEE LT 2 VIEWS COMPARISON: [facility], CT, LOWER EXTREMITY LT WO, 07/18/2021, 11:02. [...] Vaughan MD on 09/11/2021 at 13:44 Normal [facility] CORONAVIRUS PCR - [facility] 09-05-2021 SARS-CoV-2 (COVID-19) RNA BRETT+probe Ql (Unsp spec) Negative Normal NORMAL: NEGATIVE [facility] Comment on above: Performed By: #### 2 85404 #### [facility],[address] [place] [address] SEND TO ? NO Normal [facility] Comment on above: Result Comment: RESU LTS FAXED TO INFECTION CONTROL. SARS-CoV-2 THIS TEST IS BEING USED UNDER THE FDA EUA PROCEDURE. THIS ASSAY HAS BEEN VALIDATED IN THE [facility] FOR USE WITH NASOPHARYNGEAL SPECIMENS IN [facility]. INTERPRETIVE DATA LABORATORY TEST RESULTS SHOULD ALWAYS [...] PUBLIC HEALTH AUTHORITIES. Performed By: #### 2 79531 #### [facility],[address] [place], [place] [address] with eGFRon 08-30-2021 AGE 71 years Normal [facility] Comment on above: Performed By: #### 2 19758 #### [facility],[address] [place] [address] 94595 Anion gap [Moles/Vol] 13 mmol/L Normal 10 - 20 [facility] Comment on above: Performed By: #### 2 47322 #### [facility],[address] [place] [address] 65712 BMP with eGFR Normal [facility] Comment on above: Result Comment: BASI C METABOLIC PANEL Performed By: #### 2 71352 #### [facility],[address] [place] [address] 92685 Calcium [Mass/Vol] 9.0 mg/dL Normal 8.5 - 10.1 [facility] Comment on above: Performed By: #### 2 66366 #### [facility],[address] [place] [address] 35825 Chloride [Moles/Vol] 104 mmol/L Normal 98 - 107 [facility] Comment on above: Performed By: #### 2 78033 #### [facility],[address] [place] [address] 73242 CO2 [Moles/Vol] 27.6 mmol/L Normal 21.0 - 32.0 [facility] Comment on above: Performed By: #### 2 25631 #### [facility],[address] [place] [address] 50899 Creatinine [Mass/Vol] 0.81 mg/dL Normal 0.55 - 1.02 [facility] Comment on above: Performed By: #### 2 14958 #### [facility],[address] [place] [address] 05870 GFR/1.73 sq M.predicted among non-blacks MDRD (S/P/Bld) [Vol rate/Area] mL/min/{1.73_m2} Normal 60 - 999 [facility] Comment on above: Performed By: #### 2 81885 #### [facility],[address] [place] [address] 66946 Result Comment: ACCO RDING TO THE NATIONAL KIDNEY DISEASE EDUCATION PROGRAM(NKDE), A NORMAL eGFR IS A VALUE GREATER THAN OR EQUAL TO 60 ML/MIN/1.73 SQ METERS. CHRONIC KIDNEY DISEASE: <60mL/MIN/1.73 SQ METERS KIDNEY FAILURE: <15mL/MIN/1.73 SQ METERS THIS TEST SHOULD ONLY BE USED FOR PATIENTS 18 YEARS OF AGE AND OLDER. Glucose [Mass/Vol] 117 mg/dL High 74 - 106 [facility] Comment on above: Performed By: #### 2 54269 #### [facility],[address] [place] [address] 24008 Potassium [Moles/Vol] 4.1 mmol/L Normal 3.5 - 5.1 [facility] Comment on above: Performed By: #### 2 27181 #### [facility],[address] [place] [address] 57529 Sodium [Moles/Vol] 140 mmol/L Normal 136 - 145 [facility] Comment on above: Performed By: #### 2 30599 #### [facility],[address] [place] [address] 03148 Urea nitrogen [Mass/Vol] 18 mg/dL Normal 7 - 18 [facility] Comment on above: Performed By: #### 2 35380 #### [facility],[address] [place] [address] 13278 CBC + DIFFon 08-30-2021 Baso # 0.00 x10EE3/UL Normal 0.00 - 0.10 [facility] Comment on above: Performed By: #### 2 12723 #### [facility],[address] [place] [address] 67455 Basophils/100 WBC (Bld) 0.7 % Normal 0.0 - 2.0 [facility] Comment on above: Performed By: #### 2 06864 #### [facility],[address] [place] [address] 17881 CBC + DIFF Normal [facility] Comment on above: Result Comment: CBC- COMPLETE BLOOD COUNT Performed By: #### 2 27515 #### [place] [address] EO # 0.20 x10EE3/UL Normal 0.00 - 0.50 [facility] Comment on above: Performed By: #### 2 31931 #### [place] [address] Eosinophils/100 WBC (Bld) 3.2 % Normal 0.0 - 7.0 [facility] Comment on above: Performed By: #### 2 36150 #### [place] [address] Erythrocyte distribution width (RBC) [Ratio] 13.6 % Normal 12.0 - 15.6 [facility] Comment on above: Performed By: #### 2 47217 #### [place] [address] Hematocrit (Bld) [Volume fraction] 40.3 % Normal 34.0 - 46.0 [facility] Comment on above: Performed By: #### 2 38472 #### [place] [address] Hemoglobin (Bld) [Mass/Vol] 13.7 g/dL Normal 12.0 - 16.0 [facility] Comment on above: Performed By: #### 2 68608 #### [place] [id number] Lymph # 1.60 x10EE3/UL Normal 0.80 - 2.80 [facility] Comment on above: Performed By: #### 2 63815 #### [place] [id number] Lymphocytes/100 WBC (Bld) 28.3 % Normal 20.0 - 45.0 [facility] Comment on above: Performed By: #### 2 78412 #### [facility],[address] [place] [address] MANUAL DIFF N/A Normal [facility] Comment on above: Performed By: #### 2 39089 #### [facility],[address] [place] [address] MCH (RBC) [Entitic mass] 32 pg Normal 27 - 33 [facility] Comment on above: Performed By: #### 2 92837 #### [facility],[address] [place] [address] MCHC 34 X10 3 Normal 32 - 36 [facility] Comment on above: Performed By: #### 2 36142 #### [facility],[address] [place] [address] MCV (RBC) [Entitic vol] 93 fL Normal 80 - 99 [facility] Comment on above: Performed By: #### 2 27629 #### [facility],[address] [place] [address] [place] # 0.40 x10EE3/UL Normal 0.20 - 1.00 [facility] Comment on above: Performed By: #### 2 61216 #### [place] [address] MONOS % 7.6 % Normal 0.0 - 10.0 [facility] Comment on above: Performed By: #### 2 75777 #### [facility],[address] [place] [address] Morphology Wade (Bld) [Interp] N/A Normal [facility] Comment on above: Result Comment: {CD] Performed By: #### 2 23481 #### [place] [address] Neut # 3.50 x10EE3/UL Normal 1.50 - 7.10 [facility] Comment on above: Performed By: #### 2 60546 #### [place] [address] Neutrophils/100 WBC (Bld) 60.2 % Normal 46.0 - 76.0 [facility] Comment on above: Performed By: #### 2 64337 #### [facility],[address] [place] [address] 95740 PLATELET 197 x10EE3/UL Normal 150 - 450 [facility] Comment on above: Performed By: #### 2 38912 #### [facility],[address] [place] [address] 49137 Platelet mean volume (Bld) [Entitic vol] 7.9 fL Normal 6.6 - 10.5 [facility] Comment on above: Result Comment: AUTO MATED DIFFERENTIAL Performed By: #### 2 70671 #### [facility],[address] [place] [address] 19179 RBC 4.36 x 10EE6/UL Normal 4.10 - 5.30 [facility] Comment on above: Performed By: #### 2 58449 #### [facility],[address] [place] [address] 96815 WBC 5.8 x 10EE3/UL Normal 4.5 - 10.8 [facility] Comment on above: Performed By: #### 2 92614 #### [facility],[address] [place] [address] LOWER EXTREMITY LT WOon 1 09-17-2020 CT LOWER EXTREMITY LT WO [place] [address] Patient: ROMERO GRAY Phone#: : 1950 Age: 71 Gender: F Pt. Type: Out Account: [id number] Location: [facility] Ordering: PATRICIO DUENAS Exam Date: 07/18/2021/11:02 Family Phys: Charge Code: [id number] Physician: Dare Order #: [id number] DLP Dose#: 37.80 PROCEDURE: CT LOWER EXTREMITY [...] Nisreen Moreno MD on 07/18/2021 at 11:46 [facility] Final Surgical Pathology Rep [facility] 04-13-2021 Final Surgical Pathology Report . Pathology Reports Accession: Collected Date/Time: Received Date/Time: Pathologist: [id number] 04/10/2021 09:13 EDT 04/11/2021 09:13 EDT BACILIO LQUUE MD Final Surgical Pathology Report DIAGNOSIS: RIGHT KNEE BONE - DEGENERATIVE CHANGES IN ARTICULAR CARTILAGE. SUBCHONDRAL BONE WITH PATCHY FIBROSIS AND DEGENERATIVE CHANGES. NEGATIVE FOR MALIGNANCY. COMMENT: [id number] - [id number] CLINICAL INFORMATION: UNILATERAL PRIMARY OSTEOARTHRITIS RIGHT KNEE SPECIMEN: A RIGHT KNEE BONE GROSS DESCRIPTION: Received in formalin labeled with the patient's name and not designated are multiple fragments of irregular bone, articular cartilage and periarticular soft tissues, in aggregate 12.0 x 11.5 x 4.5 cm. Portions of the articular surfaces show marked erosion of the cartilage revealing underlying roughened bone. Conservation Coordinator sections submitted in one cassette after decalcification. dictated by Daniel Wen M.D. Dictated by KAREN ABDI MICROSCOPIC DESCRIPTION: Slides reviewed. Electronically Signed by Pathology Report verified by [facility] Electronically signed by BACILIO LUQUE Sign out Date: 04/13/2021 17:02 Performing Lab: [facility], [address] [place] [address] [facility] Normal [facility] [place] Comment on above: Performed By: #### S PFR #### [place] [id number] BMP with eGFRon 04-11-2021 AGE 70 years Normal [facility] Comment on above: Performed By: #### 2 68314 ####[facility],[address] [place] [address] 90204 Anion gap [Moles/Vol] 12 mmol/L Normal 10 - 20 [facility] Comment on above: Performed By: #### 2 73579 ####[facility],[address] [place] [address] 90350 BMP with eGFR Normal [facility] Comment on above: Result Comment: BASI C METABOLIC PANEL Performed By: #### 2 13618 ####[facility],[address] [place] [address] 14286 Calcium [Mass/Vol] 7.7 mg/dL Low 8.5 - 10.1 [facility] Comment on above: Performed By: #### 2 93553 ####[facility],[address] [place] [address] 97027 Chloride [Moles/Vol] 103 mmol/L Normal 98 - 107 [facility] Comment on above: Performed By: #### 2 54973 ####[facility],[address] [place] [address] 85290 CO2 [Moles/Vol] 24.3 mmol/L Normal 21.0 - 32.0 [facility] Comment on above: Performed By: #### 2 42409 ####[facility],[address] [place] [address] 72232 Creatinine [Mass/Vol] 1.01 mg/dL Normal 0.55 - 1.02 [facility] Comment on above: Performed By: #### 2 30970 ####[facility],[address] [place] [address] 07837 eGFR 54 ML/MINUTE Low 60 - 999 [facility] Comment on above: Performed By: #### 2 31542 ####[address] [address] GFR/1.73 sq M.predicted among non-blacks MDRD (S/P/Bld) [Vol rate/Area] mL/min/{1.73_m2} Normal 60 - 999 [facility] Comment on above: Result Comment: ACCO RDING TO THE NATIONAL KIDNEY DISEASE EDUCATION PROGRAM(NKDE), A NORMAL eGFR IS A VALUE GREATER THAN OR EQUAL TO 60 ML/MIN/1.73 SQ METERS. CHRONIC KIDNEY DISEASE: <60mL/MIN/1.73 SQ METERS KIDNEY FAILURE: <15mL/MIN/1.73 SQ METERS THIS TEST SHOULD ONLY BE USED FOR PATIENTS 18 YEARS OF AGE AND OLDER. Performed By: #### 2 26899 ####[address] [address] Glucose [Mass/Vol] 164 mg/dL High 74 - 106 [facility] Comment on above: Performed By: #### 2 04485 ####[address] [address] Potassium [Moles/Vol] 4.5 mmol/L Normal 3.5 - 5.1 [facility] Comment on above: Performed By: #### 2 [id number] ####[address] [address] Sodium [Moles/Vol] 135 mmol/L Low 136 - 145 [facility] Comment on above: Performed By: #### 2 14873 ####[address] [address] Urea nitrogen [Mass/Vol] 17 mg/dL Normal 7 - 18 [facility] Comment on above: Performed By: #### 2 10775 ####[address] [address] CBC + DIFFon 04-11-2021 Baso # 0.00 x10EE3/UL Normal 0.00 - 0.10 [facility] Comment on above: Performed By: #### 2 25032 #### [facility],[address] [place] [address] Basophils/100 WBC (Bld) 0.4 % Normal 0.0 - 2.0 [facility] Comment on above: Performed By: #### 2 23077 #### [facility],[address] [place] [address] CBC + DIFF Normal [facility] Comment on above: Result Comment: CBC- COMPLETE BLOOD COUNT Performed By: #### 2 23288 #### [facility],[address] [place] [address] EO # 0.00 x10EE3/UL Normal 0.00 - 0.50 [facility] Comment on above: Performed By: #### 2 66719 #### [facility],[address] [place] [address] Eosinophils/100 WBC (Bld) 0.0 % Normal 0.0 - 7.0 [facility] Comment on above: Performed By: #### 2 21129 #### [facility],[address] [place] [address] Erythrocyte distribution width (RBC) [Ratio] 12.7 % Normal 12.0 - 15.6 [facility] Comment on above: Performed By: #### 2 68967 #### [facility],[address] [place] [address] Hematocrit (Bld) [Volume fraction] 36.8 % Normal 34.0 - 46.0 [facility] Comment on above: Performed By: #### 2 49743 #### [facility],[address] [place] [address] Hemoglobin (Bld) [Mass/Vol] 12.6 g/dL Normal 12.0 - 16.0 [facility] Comment on above: Performed By: #### 2 46852 #### [facility],[address] [place] [address] Lymph # 0.80 x10EE3/UL Normal 0.80 - 2.80 [facility] Comment on above: Performed By: #### 2 92136 #### [facility],[address] [place] [address] Lymphocytes/100 WBC (Bld) 9.4 % Low 20.0 - 45.0 [facility] Comment on above: Performed By: #### 2 34013 #### [facility],[address] [place] [address] MANUAL DIFF N/A Normal [facility] Comment on above: Performed By: #### 2 93947 #### [facility],[address] [place] [address] MCH (RBC) [Entitic mass] 32 pg Normal 27 - 33 [facility] Comment on above: Performed By: #### 2 05648 #### [facility],[address] [place] [address] MCHC 34 X10 3 Normal 32 - 36 [facility] Comment on above: Performed By: #### 2 56328 #### [facility],[address] [place], [place] [id number] MCV (RBC) [Entitic vol] 94 fL Normal 80 - 99 [facility] Comment on above: Performed By: #### 2 63719 #### [facility],[address] [place] [address] [place] # 0.30 x10EE3/UL Normal 0.20 - 1.00 [facility] Comment on above: Performed By: #### 2 48545 #### [facility],[address] [place] [address] MONOS % 4.0 % Normal 0.0 - 10.0 [facility] Comment on above: Performed By: #### 2 02517 #### [facility] [place] [address] Morphology Wade (Bld) [Interp] N/A Normal [facility] Comment on above: Result Comment: {CD] Performed By: #### 2 16906 #### [facility],[address] [place] [address] Neut # 7.30 x10EE3/UL High 1.50 - 7.10 [facility] Comment on above: Performed By: #### 2 02147 #### [facility],[address] [place] [address] Neutrophils/100 WBC (Bld) 86.2 % High 46.0 - 76.0 [facility] Comment on above: Performed By: #### 2 84285 #### [facility],[address] [place] [address] PLATELET 173 x10EE3/UL Normal 150 - 450 [facility] Comment on above: Performed By: #### 2 09513 #### [facility],[address] [place] [address] Platelet mean volume (Bld) [Entitic vol] 7.3 fL Normal 6.6 - 10.5 [facility] Comment on above: Result Comment: AUTO MATED DIFFERENTIAL Performed By: #### 2 50601 #### [facility],[address] [place] [address] RBC 3.92 x 10EE6/UL Low 4.10 - 5.30 [facility] Comment on above: Performed By: #### 2 86589 #### [facility],[address] [place] [address] WBC 8.5 x 10EE3/UL Normal 4.5 - 10.8 [facility] Comment on above: Performed By: #### 2 96568 #### [facility],[address] [place] [address] KNEE 2 VIEWS RTon 04-10-2021 KNEE 2 VIEWS RT [place] [address] Patient: ROMERO GRAY Phone#: : 1950 Age: 70 Gender: F Pt. Type: Out Account: [id number] Location: [facility] Ordering: PATRICIO DUENAS Exam Date: 04/10/2021/15:48 Family Phys: Charge Code: [id number] Physician: Dare Order #: [id number] DLP Dose#: PROCEDURE: X-RAY KNEE RT 2 [...] Moreno MD on 04/10/2021 at 17:08 Normal [facility] BMP with eGFRon 03-22-2021 AGE 70 years Normal [facility] Comment on above: Performed By: #### 2 05127 ####[facility],[address] [place] [address] Anion gap [Moles/Vol] 13 mmol/L Normal 10 - 20 [facility] Comment on above: Performed By: #### 2 75605 ####[facility],[address] [place], [place] [id number] BMP with eGFR Normal [facility] Comment on above: Result Comment: BASI C METABOLIC PANEL Performed By: #### 2 21990 ####[facility],[address] [place], [place] [address] Calcium [Mass/Vol] 9.2 mg/dL Normal 8.5 - 10.1 [facility] Comment on above: Performed By: #### 2 82556 ####[facility],[address] [place], [place] [address] Chloride [Moles/Vol] 103 mmol/L Normal 98 - 107 [facility] Comment on above: Performed By: #### 2 79098 ####[facility],[address] [place], [place] [address] CO2 [Moles/Vol] 24.7 mmol/L Normal 21.0 - 32.0 [facility] Comment on above: Performed By: #### 2 20350 ####[facility],[address] [place], [place] [address] Creatinine [Mass/Vol] 0.87 mg/dL Normal 0.55 - 1.02 [facility] Comment on above: Performed By: #### 2 68916 ####[facility],[address] [place] [address] GFR/1.73 sq M.predicted among non-blacks MDRD (S/P/Bld) [Vol rate/Area] mL/min/{1.73_m2} Normal 60 - 999 [facility] Comment on above: Performed By: #### 2 34591 ####[facility],[address] [place] [address] Result Comment: ACCO RDING TO THE NATIONAL KIDNEY DISEASE EDUCATION PROGRAM(NKDE), A NORMAL eGFR IS A VALUE GREATER THAN OR EQUAL TO 60 ML/MIN/1.73 SQ METERS. CHRONIC KIDNEY DISEASE: <60mL/MIN/1.73 SQ METERS KIDNEY FAILURE: <15mL/MIN/1.73 SQ METERS THIS TEST SHOULD ONLY BE USED FOR PATIENTS 18 YEARS OF AGE AND OLDER. Glucose [Mass/Vol] 100 mg/dL Normal 74 - 106 [facility] Comment on above: Performed By: #### 2 11479 ####[facility],[address] [place], [place] [id number] Potassium [Moles/Vol] 3.9 mmol/L Normal 3.5 - 5.1 [facility] Comment on above: Performed By: #### 2 42587 ####[facility],[address] [place] [address] Sodium [Moles/Vol] 137 mmol/L Normal 136 - 145 [facility] Comment on above: Performed By: #### 2 07961 ####[facility],[address] [place] [address] Urea nitrogen [Mass/Vol] 20 mg/dL High 7 - 18 [facility] Comment on above: Performed By: #### 2 51051 ####[facility],[address] [place] [address] CBC + DIFFon 03-22-2021 Baso # 0.00 x10EE3/UL Normal 0.00 - 0.10 [facility] Comment on above: Performed By: #### 2 54237 #### [facility],[address] [place] [address] Basophils/100 WBC (Bld) 0.6 % Normal 0.0 - 2.0 [facility] Comment on above: Performed By: #### 2 65010 #### [facility],[address] [place] [address] CBC + DIFF Normal [facility] Comment on above: Result Comment: CBC- COMPLETE BLOOD COUNT Performed By: #### 2 14705 #### [facility],[address] [place] [address] EO # 0.20 x10EE3/UL Normal 0.00 - 0.50 [facility] Comment on above: Performed By: #### 2 81979 #### [facility],[address] [place] [address] Eosinophils/100 WBC (Bld) 2.6 % Normal 0.0 - 7.0 [facility] Comment on above: Performed By: #### 2 71763 #### [facility],[address] [place] [address] Erythrocyte distribution width (RBC) [Ratio] 13.0 % Normal 12.0 - 15.6 [facility] Comment on above: Performed By: #### 2 86979 #### [facility],[address] [place] [address] Hematocrit (Bld) [Volume fraction] 41.7 % Normal 34.0 - 46.0 [facility] Comment on above: Performed By: #### 2 46252 #### [facility],[address] [place] [address] Hemoglobin (Bld) [Mass/Vol] 14.0 g/dL Normal 12.0 - 16.0 [facility] Comment on above: Performed By: #### 2 43057 #### [facility],[address] [place] [address] Lymph # 2.00 x10EE3/UL Normal 0.80 - 2.80 [facility] Comment on above: Performed By: #### 2 20473 #### [facility],[address] [place] [address] Lymphocytes/100 WBC (Bld) 28.5 % Normal 20.0 - 45.0 [facility] Comment on above: Performed By: #### 2 40580 #### [facility],[address] [place] [address] MANUAL DIFF N/A Normal [facility] Comment on above: Performed By: #### 2 89942 #### [facility],[address] [place], [place] [address] MCH (RBC) [Entitic mass] 31 pg Normal 27 - 33 [facility] Comment on above: Performed By: #### 2 91975 #### [facility],[address] [place], [place] [address] MCHC 34 X10 3 Normal 32 - 36 [facility] Comment on above: Performed By: #### 2 40069 #### [facility],[address] [place] [address] MCV (RBC) [Entitic vol] 93 fL Normal 80 - 99 [facility] Comment on above: Performed By: #### 2 64697 #### [facility],[address] [place] [address] [place] # 0.60 x10EE3/UL Normal 0.20 - 1.00 [facility] Comment on above: Performed By: #### 2 23380 #### [facility],[address] [place] [address] MONOS % 8.2 % Normal 0.0 - 10.0 [facility] Comment on above: Performed By: #### 2 75119 #### [facility],[address] [place] [address] Morphology Wade (Bld) [Interp] N/A Normal [facility] Comment on above: Result Comment: {CD] Performed By: #### 2 67965 #### [facility],[address] [place] [address] Neut # 4.30 x10EE3/UL Normal 1.50 - 7.10 [facility] Comment on above: Performed By: #### 2 55826 #### [facility],[address] [place] [address] Neutrophils/100 WBC (Bld) 60.1 % Normal 46.0 - 76.0 [facility] Comment on above: Performed By: #### 2 31137 #### [facility],[address] [place] [address] PLATELET 211 x10EE3/UL Normal 150 - 450 [facility] Comment on above: Performed By: #### 2 53966 #### [facility],[address] [place] [address] Platelet mean volume (Bld) [Entitic vol] 7.6 fL Normal 6.6 - 10.5 [facility] Comment on above: Result Comment: AUTO MATED DIFFERENTIAL Performed By: #### 2 46063 #### [facility],[address] [place] [address]47 RBC 4.48 x 10EE6/UL Normal 4.10 - 5.30 [facility] Comment on above: Performed By: #### 2 21917 #### [facility],[address] [place] [address] WBC 7.2 x 10EE3/UL Normal 4.5 - 10.8 [facility] Comment on above: Performed By: #### 2 67834 #### [facility],[address] [place] [address] LOWER EXTREMITY RT WOon 0 01-27-2021 CT LOWER EXTREMITY RT WO [facility] [address] [place] [address] Patient: ROMERO GRAY Phone#: : 1950 Age: 70 Gender: F Pt. Type: Out Account: [id number] Location: Ordering: PATRICIO DUENAS Exam Date: 01/27/2021/11:45 Family Phys: Charge Code: [id number] Physician: Dare Order #: [id number] DLP Dose#: PROCEDURE: CT LOWER EXTREMITY RT [...] Vaughan MD on 01/27/2021 at 16:39 Normal [facility] Vital Signs Date Time Vital Sign Value Performing Clinician Antonio noel 04-15-2025 09:58-0400 Body height 165.[address] Abran Yanes MD Work Phone: [facility] 04-15-2025 09:58-0400 Body mass index (BMI) [Ratio] 34.2 kg/m2 Dr. Abran Yanes MD Work Phone: [facility] 04-15-2025 09:58-0400 Body temperature 98.4 [degF] Dr. Abran Yanes MD Work Phone: [facility] 04-15-2025 09:58-0400 Body weight 93.[address] Abran Yanes MD Work Phone: [facility] 04-15-2025 09:58-0400 Diastolic blood pressure 77 mm[Hg] Dr. Abran Yanes MD Work Phone: [facility] 04-15-2025 09:58-0400 Heart rate 66 /min Dr. Abran Yanes MD Work Phone: [facility] 04-15-2025 09:58-0400 Respiratory rate 16 /min Dr. Abran Yanes MD Work Phone: [facility] 04-15-2025 09:58-0400 SaO2% (BldA) [Mass fraction] 93 % Dr. Abran Yanes MD Work Phone: [facility] 04-15-2025 09:58-0400 Systolic blood pressure 117 mm[Hg] Dr. Abran Yanes MD Work Phone: [facility] 03-31-2025 14:30-0400 Body height 165.[address] Abran Yanes MD Work Phone: [facility] 03-31-2025 14:30-0400 Body mass index (BMI) [Ratio] 34.1 kg/m2 Dr. Abran Yanes MD Work Phone: [facility] 03-31-2025 14:30-0400 Body weight 92.[address] Abran Yanes MD Work Phone: [facility] 03-31-2025 14:30-0400 Diastolic blood pressure 70 mm[Hg] Dr. Abran Yanes MD Work Phone: [facility] 03-31-2025 14:30-0400 Heart rate 79 /min Dr. Abran Yanes MD Work Phone: [facility] 03-31-2025 14:30-0400 Respiratory rate 16 /min Dr. Abran Yanes MD Work Phone: [facility] 03-31-2025 14:30-0400 Systolic blood pressure 112 mm[Hg] Dr. Abran Yanes MD Work Phone: [facility] 07-28-2024 15:55-0500 Body height 165.[address] Abran Yanes MD Work Phone: [facility] 07-28-2024 15:55-0500 Body mass index (BMI) [Ratio] 34.2 kg/m2 Dr. Abran Yanes MD Work Phone: [facility] 07-28-2024 15:55-0500 Body weight 93.[address] Abran Yanes MD Work Phone: [facility] 07-28-2024 15:55-0500 Diastolic blood pressure 54 mm[Hg] Dr. Abran Yanes MD Work Phone: [facility] 07-28-2024 15:55-0500 Heart rate 91 /min Dr. Abran Yanes MD Work Phone: [facility] 07-28-2024 15:55-0500 Respiratory rate 16 /min Dr. Abran Yanes MD Work Phone: [facility] 07-28-2024 15:55-0500 Systolic blood pressure 94 mm[Hg] Dr. Abran Yanes MD Work Phone: [facility] 07-20-2024 11:04-0500 Body height 166.4 cm Candice Carter PA-C Work Phone: [facility] 07-20-2024 11:04-0500 Body mass index (BMI) [Ratio] 33.41 kg/m2 Candice Carter PA-C Work Phone: [facility] 07-20-2024 11:04-0500 Body weight 92.49 kg Candice Carter PA-C Work Phone: [facility] 07-20-2024 11:04-0500 Diastolic blood pressure 78 mm[Hg] Candice Carter PA-C Work Phone: [facility] 07-20-2024 11:04-0500 Heart rate 60 /min Candice Carter PA-C Work Phone: [facility] 07-20-2024 11:04-0500 Systolic blood pressure 134 mm[Hg] Candice Carter PA-C Work Phone: [facility] 07-19-2024 00:28-0500 Body weight 90.[address] Abran Yanes MD Work Phone: [facility] 07-03-2024 14:37-0500 Body weight 91.[address] Abran Yanes MD Work Phone: [facility] 07-23-2023 12:14-0500 Body height 165.[address] Abran Yanes Work Phone: [facility] 07-23-2023 12:14-0500 Body mass index (BMI) [Ratio] 32.4 kg/m2 Dr. Abran Yanes Work Phone: [facility] 07-23-2023 12:14-0500 Body temperature 97.6 [degF] Dr. Abran Yanes Work Phone: [facility] 07-23-2023 12:14-0500 Body weight 88.[address] Abran Yanes Work Phone: [facility] 07-23-2023 12:14-0500 Diastolic blood pressure 87 mm[Hg] Dr. Abran Yanes Work Phone: [facility] 07-23-2023 12:14-0500 Heart rate 67 /min Dr. Abran Yanes Work Phone: [facility] 07-23-2023 12:14-0500 Respiratory rate 16 /min Dr. Abran Yanes Work Phone: [facility] 07-23-2023 12:14-0500 SaO2% (BldA) [Mass fraction] 96 % Dr. Abran Yanes Work Phone: [facility] 07-23-2023 12:14-0500 Systolic blood pressure 135 mm[Hg] Dr. Abran Yanes Work Phone: [facility] 06-13-2023 09:27-0400 Body mass index (BMI) [Ratio] 34.3 kg/m2 Dr. Abran Yanes Work Phone: [facility] 06-13-2023 09:27-0400 Body temperature 98.1 [degF] Dr. Abran Yanes Work Phone: [facility] 06-13-2023 09:27-0400 Body weight 93.[address] Abran Yanes Work Phone: [facility] 06-13-2023 09:27-0400 Diastolic blood pressure 83 mm[Hg] Dr. Abran Yanes Work Phone: [facility] 06-13-2023 09:27-0400 Heart rate 93 /min Dr. Abran Yanes Work Phone: [facility] 06-13-2023 09:27-0400 Respiratory rate 16 /min Dr. Abran Yanes Work Phone: [facility] 06-13-2023 09:27-0400 SaO2% (BldA) [Mass fraction] 93 % Dr. Abran Yanes Work Phone: [facility] 06-13-2023 09:27-0400 Systolic blood pressure 133 mm[Hg] Dr. Abran Yanes Work Phone: [facility] 05-13-2023 09:00-0400 Body mass index (BMI) [Ratio] 34.7 kg/m2 Dr. Abran Yanes Work Phone: [facility] 05-13-2023 09:00-0400 Body temperature 97.5 [degF] Dr. Abran Yanes Work Phone: [facility] 05-13-2023 09:00-0400 Body weight 94.[address] Abran Yanes Work Phone: [facility] 05-13-2023 09:00-0400 Diastolic blood pressure 71 mm[Hg] Dr. Abran Yanes Work Phone: [facility] 05-13-2023 09:00-0400 Heart rate 84 /min Dr. Abran Yanes Work Phone: [facility] 05-13-2023 09:00-0400 Respiratory rate 18 /min Dr. Abran Yanes Work Phone: [facility] 05-13-2023 09:00-0400 SaO2% (BldA) [Mass fraction] 92 % Dr. Abran Yanes Work Phone: [facility] 05-13-2023 09:00-0400 Systolic blood pressure 106 mm[Hg] Dr. Abran Yanes Work Phone: [facility] 10-08-2022 11:27-0500 Respiratory rate 16 /min Dr. Srinivas Jacobs Work Phone: [facility] 10-08-2022 10:02-0500 Body height 165.[address] Srinivas Jacobs Work Phone: [facility] 10-08-2022 10:02-0500 Body mass index (BMI) [Ratio] 33.7 kg/m2 Dr. Srinivas Jacobs Work Phone: [facility] 10-08-2022 10:02-0500 Body temperature 96.9 [degF] Dr. Srinivas Jacobs Work Phone: [facility] 10-08-2022 10:02-0500 Body weight 92.[address] Srinivas Jacobs Work Phone: [facility] 10-08-2022 10:02-0500 Diastolic blood pressure 84 mm[Hg] Dr. Srinivas Jacobs Work Phone: [facility] 10-08-2022 10:02-0500 Heart rate 79 /min Dr. Srinivas Jacobs Work Phone: [facility] 10-08-2022 10:02-0500 SaO2% (BldA) [Mass fraction] 98 % Dr. Srinivas Jacobs Work Phone: [facility] 10-08-2022 10:02-0500 Systolic blood pressure 133 mm[Hg] Dr. rSinivas Jacobs Work Phone: [facility] 08-06-2022 10:36-0500 Body height 165.[address] Abran Yanes Work Phone: [facility] 08-06-2022 10:36-0500 Body mass index (BMI) [Ratio] 34.4 kg/m2 Dr. Abran Yanes Work Phone: [facility] 08-06-2022 10:36-0500 Body weight 93.[address] Abran Yanes Work Phone: [facility] 08-06-2022 10:36-0500 Diastolic blood pressure 80 mm[Hg] Dr. Abran Yanes Work Phone: [facility] 08-06-2022 10:36-0500 Heart rate 71 /min Dr. Abran Yanes Work Phone: [facility] 08-06-2022 10:36-0500 Respiratory rate 18 /min Dr. Abran Yanes Work Phone: [facility] 08-06-2022 10:36-0500 SaO2% (BldA) [Mass fraction] 95 % Dr. Abran Yanes Work Phone: [facility] 08-06-2022 10:36-0500 Systolic blood pressure 123 mm[Hg] Dr. Abran Yanes Work Phone: [facility] 05-03-2022 13:02-0400 Body temperature 98 [degF] Dr. Srinivas Jacobs Work Phone: [facility] Work Phone: 05-03-2022 13:02-0400 Body weight 93.[address] Srinivas Jacobs Work Phone: [facility] Work Phone: 05-03-2022 13:02-0400 Diastolic blood pressure 79 mm[Hg] Dr. Srinivas Jacobs Work Phone: [facility] Work Phone: 05-03-2022 13:02-0400 Heart rate 72 /min Dr. Srinivas Jacobs Work Phone: [facility] Work Phone: 05-03-2022 13:02-0400 Respiratory rate 16 /min Dr. Srinivas Jacobs Work Phone: [facility] Work Phone: 05-03-2022 13:02-0400 SaO2% (BldA) [Mass fraction] 95 % Dr. Srinivas Jacobs Work Phone: [facility] Work Phone: 05-03-2022 13:02-0400 Systolic blood pressure 120 mm[Hg] Dr. Srinivas Jacobs Work Phone: [facility] Work Phone: 03-07-2022 14:56-0400 Body height 165.[address] Srinivas Jacobs Work Phone: [facility] Work Phone: 03-07-2022 14:56-0400 Body mass index (BMI) [Ratio] 34.4 kg/m2 Dr. Srinivas Jacobs Work Phone: [facility] Work Phone: 03-07-2022 14:56-0400 Body temperature 97.1 [degF] Dr. Srinivas Jacobs Work Phone: [facility] Work Phone: 03-07-2022 14:56-0400 Body weight 94.[address] Srinivas Jacobs Work Phone: [facility] Work Phone: 03-07-2022 14:56-0400 Diastolic blood pressure 72 mm[Hg] Dr. Srinivas Jacobs Work Phone: [facility] Work Phone: 03-07-2022 14:56-0400 Heart rate 77 /min Dr. Srinivas Jacobs Work Phone: [facility] Work Phone: 03-07-2022 14:56-0400 Respiratory rate 18 /min Dr. Srinivas Jacobs Work Phone: [facility] Work Phone: 03-07-2022 14:56-0400 SaO2% (BldA) [Mass fraction] 97 % Dr. Srinivas Jacobs Work Phone: [facility] Work Phone: 03-07-2022 14:56-0400 Systolic blood pressure 110 mm[Hg] Dr. Srinivas Jacobs Work Phone: [facility] Work Phone: 02-07-2022 14:55-0400 Body height 165.[address] Srinivas Jacobs Work Phone: [facility] Work Phone: 02-07-2022 14:55-0400 Body mass index (BMI) [Ratio] 34.4 kg/m2 Dr. Srinivas Jacobs Work Phone: [facility] Work Phone: 02-07-2022 14:55-0400 Body weight 93.[address] Srinivas Jacobs Work Phone: [facility] Work Phone: 02-07-2022 14:55-0400 Diastolic blood pressure 68 mm[Hg] Dr. Srinivas Jacobs Work Phone: [facility] Work Phone: 02-07-2022 14:55-0400 Heart rate 77 /min Dr. Srinivas Jacobs Work Phone: [facility] Work Phone: 02-07-2022 14:55-0400 Respiratory rate 18 /min Dr. Srinivas Jacobs Work Phone: [facility] Work Phone: 02-07-2022 14:55-0400 SaO2% (BldA) [Mass fraction] 94 % Dr. Srinivas Jacobs Work Phone: [facility] Work Phone: 02-07-2022 14:55-0400 Systolic blood pressure 113 mm[Hg] Dr. Srinivas Jacobs Work Phone: [facility] Work Phone: Encounters Encounter Date Encounter Type Care Provider Facility Start: 04-15-2025 End: 04-15-[address] Abran Yanes MD -[facility] Work Phone: Start: 04-15-2025 End: 04-15-[address] Abran Yanes MD Work Phone: -[facility] Start: 03-31-2025 End: 03-31-2025 Patient encounter procedure Janiya DEL ANGEL -[facility] Work Phone: Start: 03-31-2025 End: 03-31-[address] Abran Yanes MD Work Phone: -[facility] Start: 10-12-2024 End: 10-12-[address] Abran Yanes MD Work Phone: [facility] Work Phone: Start: 10-12-2024 End: 10-12-[address] Abran Yanes MD -Outpatient [facility] Work Phone: Start: 10-12-2024 End: 10-12-2024 ambulatory [facility] Facility:[facility] Start: 09-01-2024 End: 09-01-2024 ambulatory Julius Magallanes MD Work Phone: Gastroenterology Comment on above: Recurrent Clostridio ides difficile infection Start: 09-01-2024 End: 09-01-2024 Telemedicine consultation with patient Julius Magallanes MD Work Phone: Gastroenterology Start: 08-29-2024 ambulatory [facility] Facility :[facility] Start: 07-28-2024 End: 07-28-[address] Dash Prabhakar MD -[facility] Work Phone: Start: 07-28-2024 End: 07-28-2024 ambulatory [facility] Facility:[facility] Start: 07-22-2024 End: 07-22-2024 Telephone encounter Candice aCrter PA-C Work Phone: G[facility]enter[facility] [place] Comment on above: Medication Problem Start: 07-20-2024 End: 07-20-2024 ambulatory ABRAN YANES Facility:[facility] Start: 07-20-2024 End: 07-20-2024 Patient encounter procedure Candice Carter PA-C Work Phone: Gastroenterology [place] Comment on above: Recurrent Clostridio ides difficile infection (Primary Dx) Start: 07-20-2024 End: 08-18-[address] Dash Prabhakar MD -Cardiac Rehab Work Phone: Start: 07-20-2024 End: 08-18-2024 ambulatory Abranleigh Yanes Facility:[facility] Start: 07-15-2024 End: 07-18-2024 ambulatory Abranleigh Yanes Facility:[facility] Start: 07-15-2024 End: 07-18-[address] Dash Prabhakar MD -Cardiac Rehab Work Phone: Start: 07-03-2024 ambulatory Abran Yanes Facility :[facility] Start: 07-03-2024 Non-patient / Non-visit Dr. Aleksandar ALVAREZ -[facility] Start: 07-03-2024 End: 07-03-2024 Patient encounter procedure Bela Roberson SIGNALLING AND COMMUNICATIONS ENGINEER-C -Cardiovascular Services Work Phone: Start: 07-03-2024 End: 07-03-2024 ambulatory Bela Roberson NP Facility:[facility] Start: 06-29-2024 End: 06-29-[address] Abran Yanes MD -[facility] Work Phone: Start: 06-29-2024 End: 06-29-2024 ambulatory Abran Yanes Facility:[facility] Start: 06-12-2024 End: 06-18-2024 ambulatory Dash Prabhakar Facility:[facility] Start: 06-03-2024 End: 06-03-2024 ambulatory Abranleigh Yanes Facility:[facility] Start: 05-27-2024 End: 05-27-2024 ambulatory Gentry Manzo Facility:[facility] Start: 05-20-2024 End: 05-20-2024 ambulatory Abran Yanes Facility:[facility] Start: 05-18-2024 End: 05-18-2024 ambulatory [place] Aki Facility:[facility] Start: 05-13-2024 End: 05-13-2024 ambulatory Gentry Manzo Facility:[facility] Start: 05-04-2024 End: 05-05-2024 ambulatory [place] A[place] Facility:[facility] Start: 04-30-2024 End: 04-30-2024 ambulatory Abranleigh Yanes Facility:[facility] Start: 04-28-2024 ambulatory [place] Facility:[facility] Start: 04-26-2024 End: 04-26-2024 ambulatory Liliya Ballard Facility:[facility] Start: 04-26-2024 End: 04-28-2024 Evaluation and management of inpatient Abran Yanes Facility:[facility] Start: 04-26-2024 ambulatory Abran Yanes Facility :[facility] Start: 09-26-2023 End: 09-26-[address] Abran Yanes Work Phone: [facility] Work Phone: Start: 09-26-2023 End: 09-26-[address] Abran Yanes Work Phone: [facility]-Outpatient Breast Imaging Work Phone: Start: 08-09-2023 End: 08-09-[address] Abran Yanes Work Phone: [facility] Work Phone: Start: 08-09-2023 End: 08-09-[address] Abran Yanes Work Phone: [facility]-Physical Therapy Work Phone: Start: 07-26-[address] Abran Yanes Work Phone: [facility]-Physical Therapy Work Phone: Start: 07-23-2023 End: 07-23-[address] Abran Yanes Work Phone: [facility] Work Phone: Start: 07-23-2023 End: 07-23-[address] Abran Yanes Work Phone: [facility]-Laboratory, Specimen Work Phone: Start: 07-23-2023 End: 07-23-[address] Abran Yanes Work Phone: [facility] Work Phone: Start: 06-13-2023 End: 06-13-[address] Abran Yanes Work Phone: [facility] Work Phone: Start: 05-21-2023 End: 05-21-[address] Abran Yanes Work Phone: [facility]-Laboratory Work Phone: Start: 05-13-2023 End: 05-13-[address] Abran Yanes Work Phone: [facility] Work Phone: Start: 10-08-2022 End: 10-08-2022 Emergency department patient visit Dr. Srinivas Jacobs Work Phone: [facility]-Emergency Department Start: 09-21-2022 End: 09-21-[address] Abran Yanes Work Phone: [facility] Work Phone: Start: 09-21-2022 End: 09-21-[address] Abran Yanes Work Phone: [facility]-Outpatient Breast Imaging Start: 08-06-2022 End: 08-06-[address] Abran Yanes Work Phone: [facility] Start: 06-04-2022 End: 06-04-[address] Abran Yanes Work Phone: [facility] Start: 05-07-2022 End: 05-07-[address] Srinivas Jacobs Work Phone: [facility] Work Phone: Start: 05-07-2022 End: 05-07-[address] Srinivas Jacobs Work Phone: [facility]-Laboratory Start: 05-03-2022 End: 05-03-[address] Srinivas Jacobs Work Phone: [facility] Start: 03-07-2022 End: 03-07-[address] Srinivas Jacobs Work Phone: [facility] Start: 02-28-2022 Non-patient / Non-visit Dr. Gregory Jacobs Work Phone: [facility] Start: 02-28-2022 End: 02-28-[address] Srinivas Jacobs Work Phone: [facility]-Cardiovascular Services Start: 02-07-2022 End: 02-07-[address] Srinivas Jacobs Work Phone: [facility] Start: 09-11-2021 End: 09-12-2021 ambulatory PATRICIO DUENAS [facility] Start: 09-05-2021 End: 09-05-[address] SELVIN BEARD [facility] Start: 08-30-2021 End: 08-30-2021 ambulatory PATRICIO DUENAS [facility] Start: 07-18-2021 End: 07-18-2021 ambulatory PATRICIO DUENAS [facility] Start: 04-10-2021 End: 04-11-2021 ambulatory PATRICIO DUENAS [facility] Start: 03-22-2021 End: 03-22-2021 ambulatory PATRICIO DUENAS [facility] Start: 03-13-[address] Tati Jacobs Work Phone: [facility] Start: 01-27-2021 End: 01-27-2021 ambulatory PATRICIOJOSE DUENAS [facility] Procedures Date Procedure Procedure Detail Performing [...] DTaP,Tdap,Td Vaccine (2 - Td or Tdap) [facility] Start: 2026 RSV Vaccine (1 - 1-dose 75+ series) RSV Vaccine (1 - 1-dose 75+ series) [facility] Start: 09-01-2024 End: 09-01-2024 ambulatory 09/01/2024 7:00 AM [facility] [address] [id number] Julius Magallanes MD [address] [place] [address] Recurrent Clostridioides difficile infection [A49.8] Gastroenterology Comment on above: Recurrent Clostridioides difficile infec tion [A49.8] Start: 08-19-2024 Advance Directive Discussion Advance Directive Discussion [facility] Start: 04-19-2024 Covid-19 Vaccine () Covid-19 Vaccine () [facility] Start: 08-19-2023 Advance Directive Discussion Advance Directive Discussion [facility] Start: 10-01-2020 Pneumococcal Vaccine: 50+ (2 of 2 - PCV) Pneumococcal Vaccine: 50+ (2 of 2 - PCV) [facility] Start: 10-01-2020 Pneumococcal Vaccine: 65+ (2 of 2 - PCV) Pneumococcal Vaccine: 65+ (2 of 2 - PCV) [facility] Start: 06-26-2017 Screening for malignant neoplasm of colon [facility] Start: 2016 Screening for osteoporosis Bone Density Screening [facility] Start: 11-09-2013 Diabetes Screening Diabetes Screening [facility] Start: 08-29-2011 Screening for malignant neoplasm of breast Mammogram Screening [facility] Start: 2001 Shingrix Vaccine (1 of 2) Shingrix Vaccine (1 of 2) [facility] Start: 1996 Lipid panel Lipid Screening [facility] Start: 1996 Screening for malignant neoplasm of colon [facility] Start: 1969 Annual PCP Team Chronic Disease Visit Annual PCP Team Chronic Disease Visit [facility] Start: 1969 Anxiety Screening Anxiety Screening [facility] Start: 1969 BP Controlled (<130/80) BP Controlled (<130/80) [facility] Start: 1969 Depression Screening Depression Screening [facility] Start: 1969 Hepatitis C screening Hepatitis C Screening [facility] CBC W Auto Differential panel - Blood [facility] Clostridioides difficile toxin genes [Presence] in Stool by BRETT with probe detection CLOSTRIDIUM DIFFICILE TOXIN BY PCR Lab Routine Recurrent Clostridioides difficile infection Ordered: 09/01/2024 [facility] Work Phone: Comment on above: Ordered: 09/01/2024 Comprehensive metabolic 2000 panel - Serum or Plasma [facility] Glucose [Mass/volume ] in Serum or Plasma [facility] Hemoglobin A1c/Hemoglobin.total in Blood [facility] Lipid 1996 panel - Serum or Plasma [facility] Magnesium measurement [facility] Patient Education ED Laceration, Hand: All Closures [facility] Work Phone: Patient referral [facility] Work Phone: Serum insulin measurement [facility] T4 free measurement [facility] Thyroid stimulating hormone measurement [facility] Triiodothyronine, fr ee measurement [facility] Vitamin B12 measurement [facility] Vitamin D, 25-hydrox y measurement [facility] Immunizations Immunization Date Immunization Notes Care Provider Fa [facility] 06-29-2024 Seasonal trivalent influenza vaccine, adjuvanted, preservative free Dr. Abran Yanes MD Work Phone: [facility] 05-13-2023 influenza, injectabl e, quadrivalent, preservative free Dr. Abran Yanes Work Phone: [facility] 10-08-2022 tetanus toxoid, redu kevin diphtheria toxoid, and acellular pertussis vaccine, adsorbed Dr. Srinivas Jacobs Work Phone: [facility] 06-04-2022 influenza, injectabl e, quadrivalent, preservative free Dr. Abran Yanes Work Phone: [facility] 06-04-2022 influenza, seasonal, injectable Dr. Abran Yanes Work Phone: [facility] 07-05-2021 Covid (Moderna) Dr. Tommy Jacobs Work Phone: [facility] 11-02-2020 Covid (Moderna) Dr. Tommy Jacobs Work Phone: [facility] 10-05-2020 Covid (Moderna) Dr. Tommy Jacobs Work Phone: [facility] 05-25-2020 influenza injectabl e, quadrivalent, preservative free Dr. Abran Yanes Work Phone: [facility] 05-25-2020 influenza, seasonal, injectable Dr. Srinivas Jacobs Work Phone: [facility] 10-01-2019 pneumococcal polysaccharide vaccine, [address] Srinivas Jacobs Work Phone: [facility] 06-23-[address] Srinivas Jacobs Work Phone: [facility] Payers Date Payer Category Payer Self-pay [id number] 2016 Medicare MEDICARE MEDICAR E A AND B [id number] 2016-Present [phone] [address] [address] [place] [address] Medicare [id number] 2016 Private Health Insurance HUMANA HUMANA MEDICARE SUPPLEMENT [id number] 2016-Present [phone] [address] [address] [place] [address] Indemnity [id number] 2016 Medicare [id number] 2016 Private Health Insurance [id number] 1950 Unknown [id number] 2.16.840.1.340724.3.579 .2.651 1950 Unknown [id number] 2.16.840.1.569493.3.579 .2.651 1950 Unknown [id number] 2.16.840.1.985747.3.579 .2.65 1950 Unknown [id number] 2.16.840.1.728289.3.579 .2.651 1950 Unknown [id number] 2.16.840.1.648630.3.579 .2.651 1950 Unknown [id number] 2..840.1.444234.3.579 .2.651 1950 Unknown [id number] 2.840.1.389345.3.579 .2.651 Unknown [id number] 2.840.1.400777.3.579 .2.462 Unknown [id number] 2.840.1.995331.3.579 .2.462 Unknown [id number] 2.840.1.225572.3.579 .2.462 Unknown [id number] 2.840.1.519294.3.579 .2.462 Unknown [id number] 2.840.1.534537.3.579 .2.462 Unknown [id number] 2.840.1.985019.3.579 .2.462 Unknown [id number] 2.840.1.102919.3.579 .2.462 Unknown [id number] .840.1.555901.3.579 .2.462 Unknown [id number] .840.1.816626.3.579 .2.462 Unknown [id number] 2.840.1.580638.3.579 .2.462 Unknown [id number] 2.840.1.398286.3.579 .2.462 Unknown [id number] .840.1.762698.3.579 .2.462 Unknown [id number] .840.1.602691.3.579 .2.462 Unknown [id number] 2.840.1.384131.3.579 .2.462 Unknown [id number] 2.840.1.568699.3.579 .2.462 Unknown [id number] 2.840.1.402859.3.579 .2.462 Unknown [id number] 2.16.840.1.096084.3.579 .2.462 Unknown [id number] 2.16.840.1.648919.3.579 .2.462 Unknown [id number] 2.16.840.1.896704.3.579 .2.462 Unknown [id number] 2.16.840.1.971146.3.579 .2.462 Unknown [id number] 2.16.840.1.976855.3.579 .2.462 Unknown [id number] 2.16.840.1.398264.3.579 .2.462 Unknown [id number] 2.16.840.1.354628.3.579 .2.462 Unknown [id number] 2.16.840.1.402503.3.579 .2.462 Unknown [id number] 2.16840.1.679454.3.579 .2.462 Unknown [id number] 2.16.840.1.879696.3.579 .2.462 Social History Date Type Detail Facility Start: 02-07-2022 End: 07-23-2023 Tobacco smoking status ALIS Unknown if ever smoked [facility] Start: 1950 Sex Assigned At Female [facility] Start: 03-27-2015 Occasional [facility] Start: 03-27-2015 None [facility] Start: 03-27-2015 Spouse/ Signif icant Other [facility] Start: 03-27-2015 Non-smoker [facility] Start: 05-05-2024 End: 07-20-2024 Tobacco smoking status NHIS Never smoked tobacco [facility] Start: 07-20-2024 Tobacco use and exposure Smokeless tobacco non-user [facility] Start: 07-20-2024 Alcoholic beverage intake Current drinker of alcohol (finding) [facility] Start: 07-20-2024 History of Social function [facility] Start: 07-20-2024 Tobacco use panel [facility] National Score (1-100), lower number is lower risk 60 [facility] Start: 1950 Sex assigned at Not on file [facility] Start: 10-22-2024 Sex Female (finding) [place] [facility] Medical Equipment Procedure Code Equipment Code Equipment Origin al Text Equipment Identifier Dates Mesh Srg Gynmsh 6x4in Pelv - [id number] Start: 11-08-2010 Clinical Notes 04-11-2021 to 03-31-2025 Note Date & Type Note Facility 03-31-2025 Evaluation note Diagnosis Onset Date Resolution Takotsubo cardiomyopathy acute March 31, 2025 2:27pm Atherosclerosis of coronary artery of [facility] without angina pectoris chronic March 31 2:27pm Hyperlipidemia chronic March 2:27pm Hypertension chronic March 31, 2025 2:27pm [facility] Work Phone: [phone]) [phone] Instructions* Patient Instructions* Julius Magallanes MD - [...] C. difficile stool study. [facility] History of Present illness Narrative* Julius Magallanes [...] SURGICAL HISTORY Procedure Laterality Date COLONOSCOPY 03/2021 [place] COLONOSCOPY FLX DX W/COLLJ SPEC WHEN PFRMD 08/06/2007 [facility] COLONOSCOPY FLX DX W/COLLJ SPEC WHEN [...] floating with oil: No documented in [facility]Mer[facility]-2025 NoteHNO ID: [id number] Author: JULIUS MAGALLANES MD Service: ? Author [...] SURGICAL HISTORY Procedure Laterality Date COLONOSCOPY 03/2021 [place] COLONOSCOPY FLX DX W/COLLJ SPEC WHEN PFRMD 08/06/2007 [facility] COLONOSCOPY FLX DX W/COLLJ SPEC WHEN [...] No Chest Pain: No (more content not included)...[facility] 07-22-2024 Telephone encounter Note* Telephone Encounter - [...] total gross household income. Herber Chan MA [facility]12-04-2024 Miscellaneous Notes* Telephone Encounter - Herber Chan [...] income. Herber Chan MA documented [facility]12-[facility]-2024 NoteHNO ID: [id number] Author: CANDICE CARTER PA-C Service: ? Author Type: Physician Staff Accountant Type: Progress Notes Filed: 07/20/2024 11:48 Note Text: CHIEF COMPLAINT: Patient presents with: Recurrent C Diff : 3 times since January This consult was requested by Abran Yanes MD for an opinion regarding recurrent C diff. My final recommendations will be communicated to the requesting health care provider by way of the shared medical record for internal providers or letter via the [employer] for external providers. 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 Would like her to stop this. If [...] which included preparing to see the patient, [id number] patient care, completing clinical documentation, obtaining and/or reviewing separately obtained history, performing a medically appropriate examination, counseling and educating the pat ient/family/caregiver, and ordering medications, tests, or procedures. Candice Carter PA-C July 20, 2024 11:45 AM documented in this encounterMer[facility]11-11-2024 Evaluation note* Diagnosis Onset Date Resolution Status Admit Date Flu vaccine need acute June 29, 2024 2:12pm Takotsubo cardiomyopathy acute July 28, 2024 3:53pm Atherosclerosis of coronary artery of [facility] without angina pectoris chronic July 28, 024 3:53pm Hyperlipidemia chronic July 192023 3:53pm Hypertension chronic July 3:53pm [facility] Work Phone: 1(607) 644-144109-10-2024 [facility] Medical Records Department [address] [place] [address] Discharge Summary 04/28/24 1031 MR#: [id number] Acct: [id number] Name: ROMERO GRAY Rep #: [id number] : 1950 74 From: Beatris Atkins MD PCP: Dr. 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 difficile colitis, Hx NSTEMI w/ normal appearing cardiac catheterization felt secondary to vasospasms who presents to the [facility] ED on 04/26/24 with chest discomfort [...] of Tory 14.6, P (more content not included)...[facility]12-22-2023 Discharge summary Author Julio César Martínez [facility] August 09, 2023 11:06am Note Date/Time August 09, 2023 11:07am [facility] Physical Therapy [facility] [address] [place] [address]. [address] [place] [address] / REHABILITATION SERVICES DISCHARGE SUMMARY MR#: [id number] Acct: [id number] Name: ROMERO GRAY Rep #: [id number] : 1950 73 From: Julio César Martínez [...] please feel free to call me at [phone]. Thank you for the referral of thispatient. Sincerely, Julio César Martínez, PT, ATC Balance/Gait/Functional tests Balance/Special Test Scores Lower Extremity Functional Score: 57 Improvement % Improvement: 90 <Electronically signed by Julio César Martínez PT, ATC> 08/09/23 1106 CC: Dr. Abran Yanes MD; Dr. Patricio Duenas MD ~ [facility] Signed [facility] Work Phone: 1(153) 818-323602-15-2022 [facility] CON[facility] REPORT NAME ACCOUNT SEX AGE ADMIT DISCHARGE PT MED. 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 (3) Hypertension. [...] disease. Page 1 of 2 ROMERO GRAY Bar Hostess Report ROMERO GRAY : 1950 SOCIAL HISTORY: [...] Dale Willett MD 09/11/2021 15:59 JOB #: [id number] Transcribed By: am 09/11/2021 18:02 Electronically signed by: E-Sign: DALE WILLETT MD 10/03/21 11:02 Page 2 of 2 ROMERO GRAY [facility]2021 [facility] NAME ACCOUNT SEX AGE ADMIT DISCHARGE PT MED. RECORD# NUMBER DATE DATE TYPE ROMERO GRAY [id number] F 71 09/11/21 2 M [id number] ROOM: [facility] DATE OF : 1950 ATTENDING PHYSICIAN: [...] was transferred to the third floor at [facility]. She got up with physical therapy. The [...] Lachelle Martínez PA-C 09/12/21 07:40 JOB #: [id number] Transcribed By: courtney 09/12/21 08:52 Electronically signed by: E-sign Lachelle DEL ANGEL 09/26/21 07:44 Page 2 of 2 ROMERO GRAY [facility] 04-11-2021 [facility] DIS[facility] SUMMARY NAME ACCOUNT SEX AGE ADMIT DISCHARGE PT MED. RECORD# NUMBER DATE DATE TYPE ROMERO GRAY [id number] F 70 04/10/21 2 [place] [id number] ROOM: [facility] DATE OF : 1950 ATTENDING PHYSICIAN: Patricio [...] Patricio Duenas MD 04/11/21 07:15 JOB #: [id number] Transcribed By: courtney 04/11/21 08:15 Electronically signed by: E-SIGN DR. PATRICIO DUENAS M.D. 04/11/21 12:29 Page 2 of 2 [facility] Author Dr. Rowell [facility] October 08, 2022 10:56am Note Date/Time October 08, 2022 10:18am [facility] Medical Records Department [address] [place] [id number] Emergency Department Summary 10/08/22 MR#: [id number] Acct: [id number] Name: BROCKTERESOSusanne Vazquez Rep #:[id number] : 1950 72 From: Kaz Rowell MD [...] Funtion Narrative Narrative: Patient is a 72-year-old csdmd-mapr-htdavosw woman who presents with laceration to the [...] abdomen Arthritis Atherosclerosis of coronary artery of [place] heart without angina pectoris Bloating Carpal tunnel syndrome Flu vaccine need Gallstones GERD (gastroesophageal reflux disease) Hammer toe Hyperlipidemia Hypertension Neuropathy Non-STEMI (non-ST elevated myocardial infarction) (~07/2017) Osteopenia Preoperative evaluation to rule out surgical contraindication Psoriasis Thyroid disease TIA (transient ischemic attack) Home Medications oniqviyosybv-Uz-tmup-minerals 1 ea PO DAILY 03/27/15 [History Last [...] wheezing) Qty: 8.5 0RF b complex PO ooehcjrjelxx-Ed-aadq-minerals 1 EACH tablet 1 ea PO DAILY [...] your Primary Care Provider. Call [facility] ([phone]) or report to the closest Emergency Room. Call 911 if necessary. 10/08/22 1056 <Electronically signed by Kaz Rowell MD> Cosigner Signature (if applicable): CC: Dr. Abran Yanes MD ~ Signed [facility] Work Phone: Evaluation note* Diagnosis Onset Date Resolution Status Chest pain acute Non-STEMI (non-ST elevated myocardial infarction) 2017 acute Hyperlipidemia chronic Hypertension chronic [facility] Work Phone: Evaluation note* Diagnosis Onset Date Resolution Status Chest pain acute Non-STEMI (non-ST elevated myocardial infarction) 2017 acute Hyperlipidemia chronic Hypertension chronic Cough noneactive Bronchitis noneactive Non-STEMI (non-ST elevated myocardial infarction) 2017 acute Carpal tunnel syndrome chron ic Hyperlipidemia chronic Hypertension chronic Hypothyroidism chronic Insomnia chronic Obesity (BMI 30.0-34.9) [facility] Osteoarthritis chronic Encounter to establish care noneactive [facility] Work Phone: Evaluation note* Diagnosis Onset Date Resolution Status Hyperlipidemia chronic Hypertension chronic Non-STEMI (non-ST elevated myocardial infarction) 2017 resolved [facility] Work Phone: Evaluation note* Diagnosis Onset Date Resolution Status Elevated blood sugar acute GERD (gastroesophageal reflux disease) chronic Hyperlipidemia chronic Hypertension chronic Hypothyroidism chronic Obesity (BMI 30.0-34.9) [facility] Osteoarthritis chronic Elevated blood sugar acute Encounter to discuss test results acute Insulin resistance acute Hyperlipidemia chronic Hypertension chronic Hypothyroidism chronic Obesity (BMI 30.0-34.9) [facility] Work Phone: Evaluation note* Diagnosis Onset Date Resolution Status Elevated blood sugar acute Encounter to discuss test results acute Insulin resistance acute Hyperlipidemia chronic Hypertension chronic Hypothyroidism chronic Obesity (BMI 30.0-34.9) [facility] Work Phone: Evaluation note* Diagnosis Recurrent Clostridioides difficile infection- [facility] Diagnosis Recurrent Clostridioides difficile infection documented in this encounter [facility] note* Diagnosis Onset Date Resolution Status Admit Date Takotsubo cardiomyopathy acute March 31, 2025 2:27pm Atherosclerosis of coronary artery of [place] heart without angina pectoris chronic March 31 2:27pm Hyperlipidemia chronic March 2:27pm Hypertension chronic March 31, 2025 2:27pm [facility] Work Phone: Hospital Discharge instructions Additional Instructions 1. Keep wound clean and dry for the next 48 hours 2. Have wound checked in 2 days for evidence of infection and viability 3. Sutures to be removed in 10 days 4. [facility]: Reason for referral (narrative)No reason for referral information availableWGerman Hospital Work Phone: Summary Purpose Family History No [...] Will No May 31 9:19am Power of Finishing Range Supervisor No May 31, 2021 9:19am Advance Directive Response Recorded Date/ Time Advance Directives Yes September 04, 2018 3:47pm Living Will No May 31 8:19am Power of Finishing Range Supervisor No May 31, 2021 8:19am Advance Directive Response Recorded Date/ Time Advance Directives Yes September 04, 2018 3:47pm Living Will No October 08 10:34am Power of Finishing Range Supervisor No October 08, 2022 10:34am Advance Directive Response Recorded Date/ Time Living Will Yes May 05, 2024 9:22am Power of Finishing Range Supervisor Yes April 9:22am Living Will Yes July 19 12:28am Power of Finishing Range Supervisor Yes July 19, 2024 12:28am Advance Directives [...] 31 2:27pm Atherosclerosis of coronary artery of 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 heart without angina pectoris July 28, 2024 3:53pm Hyperlipidemia July 28, 2024 3:53pm Hypertension July 28, 2024 3:53pm Chief Complaint Admit Date 8 M FU March 31, 2025 2: 27pm Reason for Referral Specialty Diagnoses / Procedures Referred By Audrey torrez Referred To Contact Gastroenterology Diagnoses Recurrent Clostridioides difficile infection Procedures CONSULT TO GASTROENTEROLOGY OFFICE/OUTPATIENT [facility] 60 MINUTES Candice Carter PA-C [address] [place] [address] Julius Magallanes MD [address] [place] [address] Referral ID Status Reason Start Date Expiration Date Visits Requested Visits Authorized [id number] Authorized PCP Requested Referral 07/20/2024 07/20/2025 1 1 Specialty Diagnoses / Procedures Referred By Contac t Referred To Contact Diagnoses Recurrent Clostridioides difficile infection Julius Magallanes MD [address] [place] [address] Referral ID Status Reason Start Date Expiration Date Visits Re quested Visits Authorized [id number] Closed 1 1 Additional Source Comments INFORMATION SOURCE (unrecogn ized section and content) DATE CREATED AUTHOR 09/14/2021 [facility] ([place]) DATE CREATED AUTHOR AUTHOR'S ORGANIZ ATION 10/03/2021 [facility] DATE CREATED AUTHOR AUTHOR'S ORGANIZ ATION 09/04/2024 [facility] DATE CREATED AUTHOR AUTHOR'S ORGANIZ ATION 04/16/2025 [facility] Goals (unrecognized section and content) Goals may [...] Dr. Patricio Duenas MD Attending Provider Active Code Official Relationship Specialty Start Date End Date Abran Yanes MD [address] [facility] [address] [place] [address] PCP - General Internal Medicine 05/22/24 Code Official Relationship Specialty Start Date End Date Abran Yanes MD [address] [facility] [address] [place] [address] PCP - General Internal Medicine 05/22/24 Team [...] 2024 End: July 03, 2024 Bela Roberson SIGNALLING AND COMMUNICATIONS ENGINEER, SIGNALLING AND COMMUNICATIONS ENGINEER-C Attending Provider Active Start: July 03, 2024 End: July 03, 2024 Bela Roberson SIGNALLING AND COMMUNICATIONS ENGINEER, SIGNALLING AND COMMUNICATIONS ENGINEER-C Referring Provider Active Start: July 03, 2024 [...] or prosecute any alcohol or drug abuse patient.[facility] Hospital[facility] the event this information is protected by the Federal Confidentiality of Alcohol and Drug Abuse Patient Records regulations: The Federal rules restrict any use of the information to criminally investigate or prosecute any alcohol or drug abuse patient.[facility] HospitalIn the event this information is protected by the Federal Confidentiality of Alcohol and Drug Abuse Patient Records regulations: The Federal rules restrict any use of the information to criminally investigate or prosecute any alcohol or drug abuse patient.[facility] Reason for Visit (unrecogniz ed section and content) Reason Comments Recurrent C Diff 3 times since January Reason Comments Medication Problem Reason Comments Diarrhea Specialty Diagnoses / Procedures Referred By Contac t Referred To Contact Gastroenterology Diagnoses Recurrent Clostridioides difficile infection Procedures CONSULT TO GASTROENTEROLOGY OFFICE/OUTPATIENT [facility] 60 MINUTES Candice Carter PA-C [address] [facility] [place] [address] Julius Magallanes MD [address] [place] [address] Referral ID Status Reason Start Date Expiration Date V isits Requested Visits Authorized [id number] Closed PCP Requested Referral 07/20/2024 07/20/2025 1 [...] BE BASED ON THE PRIMARY CLINICAL RECORDS. [facility]. provides no warranty or guarantee of the accuracy or completeness of information in this document.
[2025-04-18 04:54] LABS: Magnesium 1.5 mg/dL (1.5-2.2)
--- NOTE | 2025-04-18 04:54 | PCM.RX.CS ---
Consult Antibiotic Management Pharmacy has been consulted to manage selected antibiotic: Vancomycin Type of Intervention Type of Consult: New start Suspected Infection Suspected Infection: Sepsis and Skin/Soft tissue Labs Labs: Sodium 131 mmol/L (133-145) L 04/17/25 23:24 Potassium 3.6 mmol/L (3.3-5.1) 04/17/25 23:24 Chloride 97 mmol/L (98-108) L 04/17/25 23:24 Carbon Dioxide 18.4 mmol/L (21.0-32.0) L 04/17/25 23:24 Anion Gap 15 (5-15) 04/17/25 23:24 BUN 15 mg/dL (4-19) 04/17/25 23:24 Creatinine 1.00 mg/dL (0.70-1.20) 04/17/25 23:24 Est GFR (MDRD) Non-Af 59 (>60) L 04/17/25 23:24 BUN/Creatinine Ratio 15.4 RATIO (10-20) 04/17/25 23:24 Glucose 169 mg/dL (70-99) H 04/17/25 23:24 Microbiology Microbiology: Microbiology 04/17/25 23:24 Mucosa - Nose SARS-CoV-2, Influenza & RSV (PCR) - Final Dosing Weight Weight used for dosin.7 kg Estimated Creatinine Clearance Estimated Creatinine Clearance: 56 Goal Trough Goal Trough: 15-20 mcg/mL Pharmacy Plan for Drug Dosing Pharmacy Plan for Drug Dosing: Pharmacy Service will continue to monitor and adjust dosing as required. Follow-Up Labs Follow-Up Labs: Trough: Vancomycin Date/Time Labs Ordered Labs to be done on [date and time ordered]: 04/19/25 @1400
[2025-04-18] MEDS: 0.9% Normal Saline (1000mL) 1,000 ML 999 ML IV ×3 (05:01→07:19)
[2025-04-18 07:08] LABS: Cholesterol 111 mg/dL (<=200); Low Density Lipoprotein Calc. 54 mg/dL; Triglycerides 38 mg/dL; Very Low Density Lipoprotein 8 mg/dL (5-40); cholesterol:hdl ratio screen 2.26
--- NOTE | 2025-04-18 08:49 | PCM.PN.HOSP ---
Reason for Visit Chief Complaint: Fever and Malaise. Subjective Subjective Right leg feels better, though still red. Objective Data Objective Data Vital Signs: Vital Signs Temp Pulse Resp BP Pulse Ox O2 Del Method 36.7 C 73 18 104/59 L 97 Room Air 04/18/25 08:12 04/18/25 08:12 04/18/25 08:12 04/18/25 08:12 04/18/25 08:12 04/18/25 08:30 Oxygen Delivery Method Room Air Weight: 93.7 kg Body Mass Index (BMI) 34.3 Intake & Output: Intake and Output for Last 24 Hours 04/16/25 04/17/25 04/18/25 23:59 23:59 23:59 Intake Total 4806 / 4806 Balance 4806 / 4806 Lab / Micro Data 04/17/25 23:24 04/17/25 23:24 Labs: Laboratory Results - last 24 hr 04/17/25 23:24: WBC 25.7 H, RBC 4.23, Hgb 14.0, Hct 39.0, MCV 92.2, MCH 33.1 H, MCHC 35.9, RDW Std Deviation 46.6 H, RDW Coeff of Tory 13.7, Plt Count 257, MPV 9.0, Immature Gran % (Auto) 1.500 H, Neut % (Auto) 90.2 H, Lymph % (Auto) 3.2 L, [place] % (Auto) 4.9, Eos % (Auto) 0.0, Baso % (Auto) 0.2, Absolute Neuts (auto) 23.2 H, Absolute Lymphs (auto) 0.82 L, Nucleated RBC % 0, Differential Comment SCANNED, Sodium 131 L, Potassium 3.6, Chloride 97 L, Carbon Dioxide 18.4 L, Anion Gap 15, BUN 15, Creatinine 1.00, Estim Creat Clear Calc 55.54, Est GFR (MDRD) Non-Af 59 L, BUN/Creatinine Ratio 15.4, Glucose 169 H, Hemoglobin A1c 5.9 H, Lactic Acid 1.0, Calcium 9.1, Phosphorus 2.1 L, Magnesium 1.5, TSH 0.727 04/18/25 00:20: Urine Color Yellow, Urine Clarity Clear, Urine pH 7.0, Ur Specific [place] 1.010, Urine Protein 30 H, Urine Glucose (UA) Normal, Urine Ketones 15 H, Urine Occult Blood 10 H, Urine Nitrite Negative, Urine Bilirubin Negative, Urine Urobilinogen Normal, Ur Leukocyte Esterase Negative, Urine RBC 0 SEEN, Urine WBC 0 SEEN, Ur Squamous Epith Cells 0 SEEN, Urine Bacteria RARE, Urine Mucus 0 SEEN 04/18/25 05:09: MRSA (PCR) Negative 04/18/25 05:54: Triglycerides 38, Cholesterol 111, LDL Cholesterol, Calc 54, VLDL Cholesterol 8, HDL Cholesterol 49, Cholesterol/HDL Ratio 2.26 Micro: Microbiology 04/18/25 05:09 Mucosa - Nasopharyngeal Respiratory Panel (PCR) - Final Rhinovirus 04/17/25 23:24 Mucosa - Nose SARS-CoV-2, Influenza & RSV (PCR) - Final Radiography Diagnostic Testing: Radiology Impression Chest X-Ray 04/17/25 23:25 IMPRESSION: No evidence for acute abnormality. Reading Location: [place] [address] Chest/Abdomen/Pelvis CT 04/18/25 01:18 IMPRESSION: Bilateral basilar atelectatic pulmonary changes. Mild cardiomegaly. Moderate coronary artery calcifications. Small sliding hiatal hernia. Cholelithiasis without acute cholecystitis. Diffuse colonic diverticulosis. Mild thickening of the sigmoid colon, probably mild colitis. Moderate amount of fecal residue in the large bowels. Prior hysterectomy. Mildly prominent retroperitoneal lymph nodes are noted with the largest measuring 1.2 cm. Mild cardiomegaly. Reading Location: [place] [address] Physical Exam Const alert and no apparent distress HEENT head/scalp atraumatic and moist oral mucous membranes Extremity Extremity Narrative: Pinkish discoloration of the distal right lower extremity. No fluctuance, no induration appreciated. Assessment & Plan Assessment/Plan (1) Cellulitis: QUALIFIERS: Site of cellulitis: extremity Site of cellulitis of extremity: lower extremity Laterality: right Qualified Code(s): L03.115 - Cellulitis of right lower limb PLAN: Improved according the patient since the . Currently on antibiotics with pip-tazo and vancomycin. Discussed with the patient that since is improving and she is otherwise stable she could be discharged as early as today but given the ongoing redness and the fact that she was hospitalized for and it has been improving she would prefer 1 more day here in the hospital which I think is reasonable given the extent of cellulitis that she does have. If she continues to prove then I would recommend discharging her with 5 more days of doxycycline. (2) Rhinovirus: PLAN: Does not appear to be too ill from the rhinovirus. Supportive management. PLAN: Plan VTE prophylaxis with Lovenox Charges/Coding Visit Charges Inpatient E&M: 36764 Subs Hosp L1
[2025-04-18] MEDS: Cholecalciferol (Vit D3) 125 MCG CAPSULE (5,000 UNITS) PO (10:02)
[2025-04-18] MEDS: Lactobacillis Acidophilus 1 CAP PO ×4 (10:02→20:55)
[2025-04-18] MEDS: hydroCHLOROthiazide 6.25mg TAB 6.25 MG PO (12:44)
[2025-04-18] MEDS: Piperacil/Tazobactam 3.375 GM in 0.9% Normal Saline (50mL MB+) 50 ML IV ×2 (13:23→20:55)
[2025-04-18] MEDS: Vancomycin HCl 1,000 MG in 0.9% Normal Saline (250mL Bag) 250 ML 250 MG IV (13:23)
[2025-04-19] MEDS: Vancomycin HCl 1,000 MG in 0.9% Normal Saline (250mL Bag) 250 ML 250 MG IV (02:16)
[2025-04-19 02:55] VITALS: BP 112/77; PULSE 77; RESP 16; TEMP 37.1; O2SAT 94
[2025-04-19] MEDS: Piperacil/Tazobactam 3.375 GM in 0.9% Normal Saline (50mL MB+) 50 ML IV (05:19)
[2025-04-19 07:02] LABS: Hematocrit 32.3 % (37-47); Hemoglobin 11.1 g/dL (12.0-15.0); Immature Granulocytes Count 0.050 X10^3/uL (0.0-0.0); Mean Corp Hgb Conc 34.4 g/dL (32-36); Mean Corpuscular Volume 93.9 fL (81-99); Mean Platelet Vol. 9.3 fl (6.2-12.0); NRBC Flagged by Analyzer 0 % (0-5); Platelet Count 190 K/mm3 (150-450); RBC Distribution Width CV 14.8 % (11.6-14.6); RBC Distribution Width SD 50.9 fl (35.1-43.9); Red Blood Count 3.44 M/mm3 (4.2-5.4); White Blood Count 14.2 K/mm3 (4.4-11.0)
[2025-04-19 07:32] LABS: AST(SGOT) 152 U/L (<=31); Alanine Aminotransfer ALT/SGPT 133 U/L (<=34); Albumin, Serum 3.0 g/dL (3.4-4.8); Alkaline Phosphatase 69 U/L (35-104); Anion Gap 9 (5-15); BUN 12 mg/dL (4-19); BUN/Creat Ratio 13.9 RATIO (10-20); Calcium,Total 8.1 mg/dL (7.6-11.0); Carbon Dioxide 18.4 mmol/L (21.0-32.0); Chloride 109 mmol/L (98-108); Estimated Creatinine Clearance 66.49 ml/min (50-250); Globulin 2.2 g/dL (2.2-4.2); Glucose 95 mg/dL (70-99); Potassium 3.7 mmol/L (3.3-5.1)
[2025-04-19 08:55] VITALS: BP 112/56; PULSE 89; RESP 18; TEMP 37.1; O2SAT 93
[2025-04-19] MEDS: Lactobacillis Acidophilus 1 CAP PO (09:19)
[2025-04-19] MEDS: Cholecalciferol (Vit D3) 125 MCG CAPSULE (5,000 UNITS) PO (09:20)
[2025-04-19] MEDS: hydroCHLOROthiazide 6.25mg TAB 6.25 MG PO (09:20)
--- NOTE | 2025-04-19 11:35 | PCM.DC ---
Discharge Instructions DC O2, CPAP, BIPAP needs Home O2 Discharge instructions: No Dressing / Incision Discharge Activity: Return to Normal Activity Weight Bearing Status: Full weight bearing Follow Up Care Test Results: Test results from this visit will be discussed in further detail at your follow-up appointment, if applicable. Discharge Plan Admission Admit Date/Time: 04/18/25 03:32 Primary Reason for Your Visit: Cellulitis of the right leg Attending Provider: Quique Miranda Primary Care Provider: Jodie Yanes Consulting Providers: Igor Winter; Juan Boyer Instructions Additional Instructions / Restrictions: Doxycycline 100 mg 1 twice a day starting tonight, vancomycin 125 mg 1 4 times a day starting this afternoon-these were called into [facility] for you Discharge Orders/Prescriptions Prescriptions: Continued cholecalciferol (vitamin D3) 125 mcg (5,000 unit) tablet 125 mcg PO DAILY multivitamin Tablet 1 tab PO QDAY carvedilol 3.125 mg tablet 3.125 mg PO BID Qty: 180 3RF aspirin 81 MG tablet,chewable 81 mg PO DAILY@0800 Qty: 90 0RF psyllium husk [Daily Fiber] 0.52 gram capsule 0.52 g PO DAILY PRN (Reason: bm) Probiotic 3 billion cell capsule 3,000 mmu cells PO DAILY Rx Instructions: administer with a meal levothyroxine 75 mcg tablet 75 mcg PO DAILY Qty: 90 3RF lisinopril-hydrochlorothiazide 20-12.5 mg tablet 0.5 tab PO QDAY Qty: 45 3RF estradiol 0.01 % (0.1 mg/gram) cream 1 g vaginal .COMPLEX Qty: 42.5 1RF Rx Instructions: 1 g vaginal 1gm each night for 2 weeks, then 2x a week; NEEDED trazodone 50 mg tablet 50 mg PO QHS PRN (Reason: insomnia) Qty: 90 1RF atorvastatin 20 mg tablet 20 mg PO QHS Qty: 90 3RF Referrals / Follow Up: Jodie Yanes MD [Primary Care Provider] - See Referral Note ( or Saturday of this week) Disposition Disposition (needs filled in before D/C Order can be placed): Home, Self Care
[2025-04-19 11:38] VITALS: BP 125/63; PULSE 62; RESP 16; TEMP 36.6; O2SAT 95
--- NOTE | 2025-04-19 11:39 | PCM.DC.SUM ---
Providers Date of Admission: 04/18/25 Date of Discharge: 04/19/25 Primary Care Physician: Dr. Jodie Yanes MD Reason For Visit: SEPSIS 2/2 CELLULITIS Diagnosis Discharge Diagnosis (1) Cellulitis: Status: Acute Code(s): L03.90 - Cellulitis, unspecified Qualifiers: Laterality: right Site of cellulitis: extremity Site of cellulitis of extremity: lower extremity Qualified Code(s): L03.115 - Cellulitis of right lower limb (2) Rhinovirus: Status: Acute Code(s): B34.8 - Other viral infections of unspecified site Plan 1. Sepsis secondary to cellulitis of the right lower leg-organism unknown #2 rhinovirus infection #3 essential hypertension #4 hypothyroidism #5 hyperlipidemia Medications at Discharge Home Medications aspirin 81 mg chewable tablet 81 mg PO DAILY@0800 ##90 07/26/17 cholecalciferol (vitamin D3) 125 mcg (5,000 unit) tablet 125 mcg PO DAILY supp 07/04/21 levothyroxine 75 mcg tablet 75 mcg PO DAILY #90 tabs 09/04/24 lisinopril 20 mg-hydrochlorothiazide 12.5 mg tablet 0.5 tab PO QDAY #45 tabs 10/27/24 atorvastatin 20 mg tablet 20 mg PO QHS #90 tabs 02/01/25 estradiol 0.01% (0.1 mg/gram) vaginal cream 1 g vaginal .COMPLEX #42.5 grams 02/01/25 trazodone 50 mg tablet 50 mg PO QHS PRN insomnia #90 tabs 02/01/25 carvedilol 3.125 mg tablet 3.125 mg PO BID #180 tabs 03/31/25 multivitamin 1 tab PO QDAY supplement 03/31/25 psyllium husk 0.52 gram capsule (Daily Fiber) 0.52 g PO DAILY PRN bm 03/31/25 lactobacillus combination no.4 3 billion cell capsule (Probiotic) 3,000 mmu cells PO DAILY probiotic 04/18/25 Hospital Course Operations None Procedures None Summary of Care Provided Minutes Spent on Discharge: 30 Hospital Course: This 75-year-old white female was seen in the emergency room at [facility] with complaints of fever. She also described rhinorrhea. Patient stated her temperature at home got up to 102 oral. Patient had a past history of cellulitis of her right lower leg, she also stated that she has had 3 episodes of C. difficile colitis. Labs were remarkable for a white blood cell count of 25.7, glucose was 169, urinalysis was unremarkable. Patient's chest x-ray showed no evidence for acute abnormality. Patient's right lower leg appeared to be reddened and warm and there was some generalized edema noted. Patient was admitted for possible sepsis, she was placed on IV antibiotics and labs were monitored. Patient's respiratory panel was positive for rhinovirus. Patient's follow-up CBC showed an improved white blood cell count. On 04/19/2025, patient was seen and examined: On examination she appeared in good health and spirits, she does not appear to be in any distress. Vital signs as documented. Skin warm and dry, there is some generalized edema noted over the right lower leg extending from the ankle area up to the mid pereira area on the right. This area is also warm and reddened.. Neck without JVD, thyroid appears normal, trachea is midline, neck is supple. Lungs clear, normal air movement was noted. Heart exam notable for regular rhythm, normal sounds and absence of murmurs, rubs or gallops. Abdomen unremarkable and without evidence of organomegaly, masses, or abdominal aortic enlargement, bowel sounds are present in all 4 quadrants, no abdominal tenderness was noted. Extremities nonedematous, no cyanosis was noted, no clubbing was noted. Neuro: Cranial nerves II through XII are grossly intact, no focal motor deficits were noted, sensation to light touch and pinprick is intact, motor exam 5/5 throughout. Psych: Patient is alert and oriented x3, she does not appear anxious or depressed, she does not appear agitated. Patient was discharged home in stable condition on 04/19/2025. Patient was placed on a short course of p.o. vancomycin along with doxycycline as an outpatient. Weight / BMI Weight Weight: 93.7 kg Body Mass Index (BMI) 34.3 ABG / Lab / Microbiology Data 04/19/25 06:35 04/19/25 06:35 Laboratory: Laboratory Results - last 24 hr 04/19/25 06:35: Sodium 137, Potassium 3.7, Chloride 109 H, Carbon Dioxide 18.4 L, Anion Gap 9, BUN 12, Creatinine 0.84, Estim Creat Clear Calc 66.49, Est GFR (MDRD) Non-Af 73, BUN/Creatinine Ratio 13.9, Glucose 95, Calcium 8.1, Total Bilirubin 0.45, AST 152 H, ALT 133 H, Alkaline Phosphatase 69, Total Protein 5.2 L, Albumin 3.0 L, Globulin 2.2, Albumin/Globulin Ratio 1.4 Microbiology: Microbiology 04/18/25 01:28 Blood Culture (Wb) - Anticubital Right Blood Culture - Preliminary No growth in 48 hours. 04/18/25 01:54 Blood Culture (Wb) - Anticubital Right Blood Culture - Preliminary No growth in 48 hours. 04/18/25 05:09 Mucosa - Nasopharyngeal Respiratory Panel (PCR) - Final Rhinovirus 04/17/25 23:24 Mucosa - Nose SARS-CoV-2, Influenza & RSV (PCR) - Final D/C Instructions Weight Bearing Status: Full weight bearing DC O2, CPAP, BIPAP Needs Home O2 Discharge instructions: No Meaningful Use Info Meaningful Use Meaningful Use Diagnoses (Choose all that apply): None applicable Discharge Plan Admission Admit Date/Time: 04/18/25 03:32 Primary Reason for Your Visit: Cellulitis of the right leg Attending Provider: Quique Miranda Primary Care Provider: Jodie Yanes Consulting Providers: Igor Winter; Juan Boyer Instructions Additional Instructions / Restrictions: Doxycycline 100 mg 1 twice a day starting tonight, vancomycin 125 mg 1 4 times a day starting this afternoon-these were called into [facility] [place] for you Discharge Orders/Prescriptions Prescriptions: Continued cholecalciferol (vitamin D3) 125 mcg (5,000 unit) tablet 125 mcg PO DAILY multivitamin Tablet 1 tab PO QDAY carvedilol 3.125 mg tablet 3.125 mg PO BID Qty: 180 3RF aspirin 81 MG tablet,chewable 81 mg PO DAILY@0800 Qty: 90 0RF psyllium husk [Daily Fiber] 0.52 gram capsule 0.52 g PO DAILY PRN (Reason: bm) Probiotic 3 billion cell capsule 3,000 mmu cells PO DAILY Rx Instructions: administer with a meal levothyroxine 75 mcg tablet 75 mcg PO DAILY Qty: 90 3RF lisinopril-hydrochlorothiazide 20-12.5 mg tablet 0.5 tab PO QDAY Qty: 45 3RF estradiol 0.01 % (0.1 mg/gram) cream 1 g vaginal .COMPLEX Qty: 42.5 1RF Rx Instructions: 1 g vaginal 1gm each night for 2 weeks, then 2x a week; NEEDED trazodone 50 mg tablet 50 mg PO QHS PRN (Reason: insomnia) Qty: 90 1RF atorvastatin 20 mg tablet 20 mg PO QHS Qty: 90 3RF Referrals / Follow Up: Jodie Yanes MD [Primary Care Provider] - See Referral Note ( or Saturday of this week) Disposition Disposition (needs filled in before D/C Order can be placed): Home, Self Care Charges/Coding Visit Charges Inpatient E&M: 05837 Disch Hosp
== END 2025-04-19 12:27 | disposition home or self-care (01) | DRG 872 ==
LOC: ED 04-18 03:47 → PCU 04-18 04:13
PROVIDERS: Admitting Provider Internal Medicine; Emergency Provider Student in an Organized Health Care Education/Training Program; PCP Internal Medicine; Visit Provider Internal Medicine
DX: A41.9 Sepsis, unspecified organism (principal); E87.1 Hypo-osmolality and hyponatremia; L03.115 Cellulitis of right lower limb; E88.819 Insulin resistance, unspecified; E03.9 Hypothyroidism, unspecified; I10 Essential (primary) hypertension; Z68.34 Body mass index [BMI] 34.0-34.9, adult; E78.5 Hyperlipidemia, unspecified; K21.9 Gastro-esophageal reflux disease without esophagitis; G62.9 Polyneuropathy, unspecified; I25.10 Atherosclerotic heart disease of native coronary artery without angina pectoris; J00 Acute nasopharyngitis [common cold]; I25.2 Old myocardial infarction; E66.811 Obesity, class 1; M85.80 Other specified disorders of bone density and structure, unspecified site; Z79.890 Hormone replacement therapy; Z79.899 Other long term (current) drug therapy; Z79.82 Long term (current) use of aspirin; Z86.73 Personal history of transient ischemic attack (TIA), and cerebral infarction without residual deficits; Z86.19 Personal history of other infectious and parasitic diseases
CPT/HCPCS: 36415; 71046; 71260; 74177; 80048; 80053; 80061; 81001; 83036; 83605; 83735; 84100; 84443; 85025; 87040; 87493; 87631; 87633; 87641; 93005; 99285; Q9967; A4216

== ENCOUNTER → 2025-05-10 | Outpatient (CLI) | payer MEDICARE, OTHER, SELFPAY ==
[2024-10-06 15:18] VITALS: BMI 33.6
== END | disposition home or self-care (01) ==
PROVIDERS: PCP Internal Medicine; Visit Provider Internal Medicine
DX: A04.71 Enterocolitis due to Clostridium difficile, recurrent (principal)
CPT/HCPCS: 87493

== ENCOUNTER → 2025-05-14 | Outpatient (CLI) | payer MEDICARE, OTHER, SELFPAY ==
[2024-10-06 15:18] VITALS: BMI 33.6
[2025-05-14 09:03] LABS: Hematocrit 40.2 % (37-47); Hemoglobin 14.2 g/dL (12.0-15.0); Immature Granulocytes Count 0.040 X10^3/uL (0.0-0.0); Mean Corp Hgb Conc 35.3 g/dL (32-36); Mean Corpuscular Volume 92.6 fL (81-99); Mean Platelet Vol. 9.1 fl (6.2-12.0); NRBC Flagged by Analyzer 0 % (0-5); Platelet Count 240 K/mm3 (150-450); RBC Distribution Width CV 13.4 % (11.6-14.6); RBC Distribution Width SD 46.1 fl (35.1-43.9); Red Blood Count 4.34 M/mm3 (4.2-5.4); White Blood Count 9.4 K/mm3 (4.4-11.0)
[2025-05-14 09:50] LABS: AST(SGOT) 29 U/L (<=31); Alanine Aminotransfer ALT/SGPT 23 U/L (<=34); Albumin, Serum 3.9 g/dL (3.4-4.8); Alkaline Phosphatase 60 U/L (35-104); Anion Gap 12 (5-15); BUN 15 mg/dL (4-19); BUN/Creat Ratio 16.2 RATIO (10-20); Calcium,Total 9.5 mg/dL (7.6-11.0); Carbon Dioxide 23.4 mmol/L (21.0-32.0); Chloride 102 mmol/L (98-108); Globulin 2.8 g/dL (2.2-4.2); Glucose 112 mg/dL (70-99); Potassium 4.2 mmol/L (3.3-5.1)
== END | disposition home or self-care (01) ==
LOC: LABSPEC 08:38
PROVIDERS: PCP Internal Medicine; Referring Provider Internal Medicine; Visit Provider Internal Medicine
DX: A04.71 Enterocolitis due to Clostridium difficile, recurrent (principal); R19.7 Diarrhea, unspecified; K58.9 Irritable bowel syndrome, unspecified
CPT/HCPCS: 36415; 80053; 85025

== ENCOUNTER → 2025-05-18 | Outpatient (CLI) | payer MEDICARE, OTHER, SELFPAY ==
--- OUTSIDE RECORDS SUMMARY | 2024-09-01 08:00 | XMS RPT_ITS ---
Author Name Auto Generated Organization OHIP Care Team Providers Care Fisher Weir Name Role Phone PALMA MAGALLANES Attending Unavailable CANDICE ASHRAF Referring Unavailable ABRAN YANSE Primary Care Unavailable CANDICE ASHRAF Attending Unavailable ABRAN YANES Referring Unavailable ABRAN YANES Primary Care Unavailable PROBLEMS DATE TYPE CONDITION / CODE ATTENDING STATUS [facility] 09/01/2024 Active Recurrent Clostr idioides difficile infection / A49.8(ICD-10) PALMA MAGALLANES Active [facility] PROCEDURES No Procedure Records Found RESULTS CNPN Observed: 05/13/2025 12:00 AM Status: COMPLETED Source: [facility] Telephone (GASTMN) SHAMIKA GRAY ([id number]) 1950 F Date Time Provider Department 05/13/25 PALMA MAGALLANES GASTMN During your visit today, we recorded the following information about you: Alanna Pinto 05/13/2025 3:33 PM Signed Received c.diff labs results dated 05/10/2025 scanned to patient's chart Palma Magallanes MD 05/17/2025 6:35 AM Signed Please let the patient know C diff testing is negative. Follow with primary. If becomes C diff positive, please contact office. Raegan Maria RN 05/17/2025 12:42 PM Signed Called patient who verified her identity. Reported results from Dr. Magallanes. Please let the patient know C diff testing is negative. Follow with primary. If becomes C diff positive, please contact office. Patient verbalized thanks and understanding. Raegan Maria RN Allergies As of Date: 05/13/2025 Noted Allergy Reaction SULFA (SULFONAMIDE ANTIBIOTICS) 09/10/2005 4 - Hives Date Reviewed: 07/20/2024 Reviewed by: Candice Ashraf PA-C - Fully Assessed Reason for Visit: Outside Lab Results [Other] Prescriptions as of 05/17/2025 - atorvastatin (LIPITOR) 20 mg tablet Take 20 mg by mouth daily at bedtime. - carvedilol (COREG) 3.125 mg tablet Take 1 tablet by mouth every 12 hours. - Ciclopirox (LOPROX) 0.77 % gel Apply a small amount to affected area twice a day to nails - lisinopril (ZESTRIL) 20 mg tablet Take 1 tablet by mouth every afternoon. - spironolactone (ALDACTONE) 25 mg tablet Take 1 tablet by mouth every afternoon. - traZODone (DESYREL) 50 mg tablet take 1 and 1/2 TABLET BY MOUTH at bedtime As Needed for insomnia - Lactobacillus acidophilus (PROBIOTIC ORAL) Take by mouth. - fidaxomicin (DIFICID) 200 mg tablet Take 1 tablet by mouth two times a day. - SYNTHROID 75 MCG TAB Take one(1) tablet daily. - ECOTRIN 325 MG TAB Take one (1) tablet daily. - DAILY MULTIVITAMIN TAB Take one(1) tablet daily. Problem List As Of Date 05/13/2025 Noted Resolved ATROPHIC VAGINITIS [N95.2] 05/11/2008 CYSTOCELE, MIDLINE [N81.11] 05/11/2008 SYMPTOMATIC FEMALE CLIMACTERIC STATE [N95.1] 05/11/2008 Vaginal Enterocele, Congenital or Acquired [N81*07/04/2009 Rectocele [N81.6] 07/04/2009 Hypertension [I10] TIA (transient ischemic attack) [G45.9] Unspecified hypothyroidism [E03.9] Prolapse of vaginal vault after hysterectomy [N*11/08/2010 Encounter Status:Closed by ALANNA PINTO on 05/13/25 PROGRESS Observed: 09/01/2024 7:00 AM Status: COMPLETED Source: [facility] HNO ID: [id number] Author: PALMA MAGALLANES MD Service: ? Author Type: Physician Type: Progress Notes Filed: 09/02/2024 09:09 Note Text: DEPARTMENT OF GASTROENTEROLOGY - NEW PATIENT/CONSULT REASON FOR VISIT Shamika Gray is a 74 year old female who is scheduled at the request of Candice Ashraf for Diarrhea. My final recommendations will be communicated back to the requesting physician by the way of the shared medical record, fax, or via US Mail HISTORY OF PRESENT ILLNESS Shamika Gray is a 74 year old female who presents today for an evaluation of diarrhea. PAST MEDICAL HISTORY Diagnosis Date C. difficile diarrhea Diverticulosis of colon (without mention of hemorrhage) Hypertension Myocardial infarction (HCC) x2 Personal history of colonic polyps Personal history of colonic polyps TA in 2003 PMH - PAST MEDICAL HISTORY OF CONSTIPATION PMH - PAST MEDICAL HISTORY OF bladder PROLAPSE TIA (transient ischemic attack) 08/19/2004 Unspecified hypothyroidism Hypothyroidism PAST SURGICAL HISTORY Procedure Laterality Date COLONOSCOPY 03/2021 [facility] COLONOSCOPY FLX DX W/COLLJ SPEC WHEN PFRMD 08/06/2007 [facility] COLONOSCOPY FLX DX W/COLLJ SPEC WHEN PFRMD 06/26/2012 Colonoscopy repeat 5 y ears DILATION AND CURETTAGE DXAND/THER NONOBSTETRIC Dilation AND curettage LAPS ABD PRTMANDOMENTUM DX W/WO SPEC BR/WA SPX Laparoscopy Lysis of adhesions LIG/TRNSXJ FLP TUBE ABDL/VAG APPR UNI/BI Tubal ligation PAST SURGICAL HISTORY OF FOOT SURGERY PAST SURGICAL HISTORY OF 06/19/2007 foot surgery TOTAL KNEE REPLACEMENT Bilateral 03/2021 VAGINAL HYSTERECTOMY UTERUS 250 GM/< 09/13/2005 Hysterectomy, vaginal/ AANDP REPAIR Current Outpatient Medications Medication Sig Dispense Refill atorvastatin (LIPITOR) 20 mg tablet Take 20 mg by mouth daily at bedtime. carvedilol (COREG) 3.125 mg tablet Take 1 tablet by mouth every 12 hours. Ciclopirox (LOPROX) 0.77 % gel Apply a small amount to affected area twice a day to nails lisinopril (ZESTRIL) 20 mg tablet Take 1 tablet by mouth every afternoon. spironolactone (ALDACTONE) 25 mg tablet Take 1 tablet by mouth every afternoon. traZODone (DESYREL) 50 mg tablet take 1 and 1/2 TABLET BY MOUTH at bedtime As Needed for insomnia Lactobacillus acidophilus (PROBIOTIC ORAL) Take by mouth. fidaxomicin (DIFICID) 200 mg tablet Take 1 tablet by mouth two times a day. 10 tablet 0 SYNTHROID 75 MCG TAB Take one(1) tablet daily. 0 ECOTRIN 325 MG TAB Take one (1) tablet daily. 0 DAILY MULTIVITAMIN TAB Take one(1) tablet daily. 0 No current facility-administered medications for this visit. ALLERGIES Allergen Reactions Sulfa (Sulfonamide * Hives Social History Tobacco Use Smoking status: Never Smokeless tobacco: Never Vaping Use Vaping status: Never Used Substance Use Topics Alcohol use: Yes Comment: occasionally Drug use: No PHYSICAL EXAMINATION There were no vitals taken for this visit. General Appearance: Well appearing, alert, in no acute distress, well-hydrated, well nourished. RECENT LABS Procedures Colonoscopy 06/26/2012 Indications: High risk colon cancer surveillance: Personal history of colonic polyps. Last colonoscopy: July 2007. Findings: Non-bleeding internal hemorrhoids were found, and they were small. Many diverticula were found in the proximal sigmoid colon, in the descending colon, in the transverse colon and in the ascending colon. The exam was otherwise normal throughout the examined colon.There is no endoscopic evidence of angiodysplasia, erythema or polyps in the entire colon. Impression: - Non-bleeding internal hemorrhoids. - Diverticulosis in the proximal sigmoid colon, in the descending colon, in the transverse colon and in the ascending colon. Assessment IMPRESSION The patient is a 74-year-old female. 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 The patient states that her first episode of C. difficile was in January 2024. She has had this at least 2 and likely 3 times with the last diagnosis being in May 2024. She has only been treated with vancomycin. She is now on an every other day taper. We had a nice discussion about the natural history of C. difficile. At this point I have asked her to stop the vancomycin and wait 3 to 4 days and if her diarrhea returns to get a repeat C. difficile assay. At that point we will suggest beginning Vowst. She is aware that if she is having diarrhea and it is recurrent she will have to go on a repeat course of Vanco and then stop the Vanco after 2 weeks wait 3 to 4 days and then take the Vowst. Will be in contact with the patient. PLAN above Palma Magallanes MD Answers submitted by the patient for this visit: Review of Systems Gastroenterology (Submitted on 08/25/2024) Fever: No Chills: No Night Sweats: No Unitentional Weight Change: No A Cough: No Difficulty Breathing: No Chest Pain: No Belly pain: No A feeling of fullness or have belly pain after eating: No Food getting stuck in your throat or chest after eating: No Nausea - that is, a feeling like you could vomit: No Regurgitation - that is, food or liquid coming back up into your throat or mouth without vomiting, or feel burning behind your breast bone: Yes Loss of appetite: No To throw up or vomit: No Blood in your stools: No Black tarry stools: No Loose or watery stools: No The feeling like you need to empty your bowels right away - that is, feel as if you would have an accident: No Bowel incontinence - that is, have an accident because you cannot make it to the bathroom in time: No Problems with straining while having bowel movements , hard or lumpy stools, or feel unfinished (that you have not passed all your stool): No Pain in rectum or anus during bowel movements: No Problems with jaundice - that is, yellow discoloration of your skin or eyes, now or in the past: No Problems with having to flush the toilet more than two times due to oily stool, or see stool floating with oil: No CNPN Observed: 07/22/2024 12:00 AM Status: COMPLETED Source: [facility] Telephone (GSTNOR) SHAMIKA GRAY ([id number]) 1950 F Date Time Provider Department 07/22/24 CANDICE ASHRAF GSTNOR During your visit today, we recorded the following information about you: Herber Chan MA 07/22/2024 9:25 AM Signed Pt states the Dificid to really expensive and she would like to apply for assistance. Contacted pt and advised we will need for her to stop into the office to sign some paperwork and bring proof of income. We will also need the total gross household income. Herber Chan MA Allergies As of Date: 07/22/2024 Noted Allergy Reaction SULFA (SULFONAMIDE ANTIBIOTICS) 09/10/2005 4 - Hives Date Reviewed: 07/20/2024 Reviewed by: Candice Ashraf PA-C - Fully Assessed Reason for Visit: Medication Problem [65] Prescriptions as of 07/22/2024 - atorvastatin (LIPITOR) 20 mg tablet Take 20 mg by mouth daily at bedtime. - carvedilol (COREG) 3.125 mg tablet Take 1 tablet by mouth every 12 hours. - Ciclopirox (LOPROX) 0.77 % gel Apply a small amount to affected area twice a day to nails - lisinopril (ZESTRIL) 20 mg tablet Take 1 tablet by mouth every afternoon. - spironolactone (ALDACTONE) 25 mg tablet Take 1 tablet by mouth every afternoon. - traZODone (DESYREL) 50 mg tablet take 1 and 1/2 TABLET BY MOUTH at bedtime As Needed for insomnia - Lactobacillus acidophilus (PROBIOTIC ORAL) Take by mouth. - fidaxomicin (DIFICID) 200 mg tablet Take 1 tablet by mouth two times a day. - SYNTHROID 75 MCG TAB Take one(1) tablet daily. - ECOTRIN 325 MG TAB Take one (1) tablet daily. - DAILY MULTIVITAMIN TAB Take one(1) tablet daily. Problem List As Of Date 07/22/2024 Noted Resolved ATROPHIC VAGINITIS [N95.2] 05/11/2008 CYSTOCELE, MIDLINE [N81.11] 05/11/2008 SYMPTOMATIC FEMALE CLIMACTERIC STATE [N95.1] 05/11/2008 Vaginal Enterocele, Congenital or Acquired [N81*07/04/2009 Rectocele [N81.6] 07/04/2009 Hypertension [I10] TIA (transient ischemic attack) [G45.9] Unspecified hypothyroidism [E03.9] Prolapse of vaginal vault after hysterectomy [N*11/08/2010 Encounter Status:Closed by HEBRER CHAN on 07/22/24 CNOV Observed: 07/20/2024 11:20 AM Status: COMPLETED Source: [facility] Office Visit (GSTNOR) SHAMIKA GRAY ([id number]) 1950 F Date Time Provider Department 07/20/24 11:20 AM CANDICE ASHRAF GSTJUANR During your visit today, we recorded the following information about you: Pulse Blood pressure Weight Height 60/minute 134/78 92.5 kg 1.664 m Candice Ashraf PA-C 07/20/2024 11:48 AM Signed CHIEF COMPLAINT: Patient presents with: Recurrent C Diff : 3 times since January This consult was requested by Abran Yanes MD for an opinion regarding recurrent C diff. My final recommendations will be communicated to the requesting health care provider by way of the shared medical record for internal providers or letter via the [employer] for external providers. HPI: Shamika Gray is a 74 year old female who presents for Recurrent C Diff (3 times since January ). PMHx of recurrent C diff, diverticulosis, HTN, TIA, hypothyroidism Patient tells me that she is here for recurrent C diff. Currently on a vancomycin dose. Started this in May, was told to stay on this until this visit. Denies symptoms today. Notes that if she stops the antibiotics, her symptoms return within three weeks. States she is getting stool tested each time before restarting Vancomycin however I do not have these records. Record Review: [facility] / Outside records reviewed. PAST MEDICAL HISTORY Diagnosis Date C. difficile diarrhea Diverticulosis of colon (without mention of hemorrhage) Hypertension Myocardial infarction (HCC) x2 Personal history of colonic polyps Personal history of colonic polyps TA in 2003 PMH - PAST MEDICAL HISTORY OF CONSTIPATION PMH - PAST MEDICAL HISTORY OF bladder PROLAPSE TIA (transient ischemic attack) 08/19/2004 Unspecified hypothyroidism Hypothyroidism PAST SURGICAL HISTORY Procedure Laterality Date COLONOSCOPY 03/2021 [facility] COLONOSCOPY FLX DX W/COLLJ SPEC WHEN PFRMD 08/06/2007 [facility] COLONOSCOPY FLX DX W/COLLJ SPEC WHEN PFRMD 06/26/2012 Colonoscopy repeat 5 y ears DILATION AND CURETTAGE DXAND/THER NONOBSTETRIC Dilation AND curettage LAPS ABD PRTMANDOMENTUM DX W/WO SPEC BR/WA SPX Laparoscopy Lysis of adhesions LIG/TRNSXJ FLP TUBE ABDL/VAG APPR UNI/BI Tubal ligation PAST SURGICAL HISTORY OF FOOT SURGERY PAST SURGICAL HISTORY OF 06/19/2007 foot surgery TOTAL KNEE REPLACEMENT Bilateral 03/2021 VAGINAL HYSTERECTOMY UTERUS 250 GM/< 09/13/2005 Hysterectomy, vaginal/ AANDP REPAIR Allergies: ALLERGIES Allergen Reactions Sulfa (Sulfonamide * Hives Medications: atorvastatin (LIPITOR) 20 mg tablet Take 20 mg by mouth daily at bedtime. carvedilol (COREG) 3.125 mg tablet Take 1 tablet by mouth every 12 hours. Ciclopirox (LOPROX) 0.77 % gel Apply a small amount to affected area twice a day to nails lisinopril (ZESTRIL) 20 mg tablet Take 1 tablet by mouth every afternoon. spironolactone (ALDACTONE) 25 mg tablet Take 1 tablet by mouth every afternoon. traZODone (DESYREL) 50 mg tablet take 1 and 1/2 TABLET BY MOUTH at bedtime As Needed for insomnia vancomycin (VANCOCIN) 125 mg capsule Take 1 capsule by mouth every 6 hours for 28 days Lactobacillus acidophilus (PROBIOTIC ORAL) Take by mouth. SYNTHROID 75 MCG TAB Take one(1) tablet daily. ECOTRIN 325 MG TAB Take one (1) tablet daily. DAILY MULTIVITAMIN TAB Take one(1) tablet daily. 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 Are you taking any blood thinners? No Physical Examination: BP 134/78 Pulse 60 Ht 5' 5.5 (1.66m) Wt 203 lb 14.4 oz (92.5kg) BMI 33.40 kg/(m2). Physical Exam Constitutional: Appearance: Normal appearance. HENT: Head: Normocephalic and atraumatic. Eyes: General: No scleral icterus. Extraocular Movements: Extraocular movements intact. Conjunctiva/sclera: Conjunctivae normal. Pupils: Pupils are equal, round, and reactive to light. Cardiovascular: Rate and Rhythm: Normal rate and regular rhythm. Pulses: Normal pulses. Heart sounds: Normal heart sounds. Pulmonary: Effort: Pulmonary effort is normal. Breath sounds: Normal breath sounds. Abdominal: General: Abdomen is flat. Bowel sounds are normal. Palpations: Abdomen is soft. Tenderness: There is no abdominal tenderness. Musculoskeletal: General: Normal range of motion. Cervical back: Normal range of motion and neck supple. Skin: General: Skin is warm and dry. Coloration: Skin is not jaundiced. Neurological: General: No focal deficit present. Mental Status: She is alert and oriented to person, place, and time. Psychiatric: Mood and Affect: Mood normal. Behavior: Behavior normal. Thought Content: Thought content normal. Judgment: Judgment normal. Assessment/Plan (A49.8) Recurrent Clostridioides difficile infection (primary encounter diagnosis) 1. Recurrent Clostridioides difficile infection -- Patient with recurrent C diff, has been treated x3 since January with Vancomycin. Symptoms return within three weeks of stopping the antibiotic. -- Has been on Vancomycin since May. Explained that is not something she should be on lobsterman. Would like her to stop this. If symptoms would return, plan for Dificid trial. -- Will send to C diff clinic as patient was initially sent here for fecal transplant evaluation. Explained that we do not do those and she would need to see the C diff clinic for further management. - CONSULT TO GASTROENTEROLOGY; Future - fidaxomicin (DIFICID) 200 mg tablet; Take 1 tablet by mouth two times a day. Dispense: 10 tablet; Refill: 0 Follow up in office PRN. Recommended to please call office/go to ER if fever, chills, chest pain, SOB, diarrhea, nausea, emesis, worsening abdominal pain, dehydration occurs I spent a total of 20 minutes on the date of the service which included preparing to see the patient, [id number] patient care, completing clinical documentation, obtaining and/or reviewing separately obtained history, performing a medically appropriate examination, counseling and educating the patient/family/caregiver, and ordering medications, tests, or procedures. Candice Ashraf PA-C July 20, 2024 11:45 AM Referring Provider: ABRAN YANES [[id number]] Allergies As of Date: 07/20/2024 Noted Allergy Reaction SULFA (SULFONAMIDE ANTIBIOTICS) 09/10/2005 4 - Hives Date Reviewed: 07/20/2024 Reviewed by: Candice Ashraf PA-C - Fully Assessed Reason for Visit: Recurrent C Diff [Other] Cmt: 3 times since January Primary Visit Diagnosis:Recurrent Clostridioides difficile infection [A49.8] Order(s):CONSULT TO GASTROENTEROLOGY [9010] Order #: [id number]: 1 FUTURE fidaxomicin (DIFICID) 200 mg tabletTake 1 tablet by mouth two times a day.Disp: 10 tabletRfl: 0 Prescriptions as of 07/20/2024 - atorvastatin (LIPITOR) 20 mg tablet Take 20 mg by mouth daily at bedtime. - carvedilol (COREG) 3.125 mg tablet Take 1 tablet by mouth every 12 hours. - Ciclopirox (LOPROX) 0.77 % gel Apply a small amount to affected area twice a day to nails - lisinopril (ZESTRIL) 20 mg tablet Take 1 tablet by mouth every afternoon. - spironolactone (ALDACTONE) 25 mg tablet Take 1 tablet by mouth every afternoon. - traZODone (DESYREL) 50 mg tablet take 1 and 1/2 TABLET BY MOUTH at bedtime As Needed for insomnia - Lactobacillus acidophilus (PROBIOTIC ORAL) Take by mouth. - fidaxomicin (DIFICID) 200 mg tablet Take 1 tablet by mouth two times a day. - SYNTHROID 75 MCG TAB Take one(1) tablet daily. - ECOTRIN 325 MG TAB Take one (1) tablet daily. - DAILY MULTIVITAMIN TAB Take one(1) tablet daily. Medication notes this encounter PROBIOTIC ORAL >> Herber Chan MA 07/20/2024 11:17 AM >> HERBER CHAN Jul 20, 2024 11:17 AM [employer] 10 billion Cell 16 Strains Problem List As Of Date 07/20/2024 Noted Resolved ATROPHIC VAGINITIS [N95.2] 05/11/2008 CYSTOCELE, MIDLINE [N81.11] 05/11/2008 SYMPTOMATIC FEMALE CLIMACTERIC STATE [N95.1] 05/11/2008 Vaginal Enterocele, Congenital or Acquired [N81*07/04/2009 Rectocele [N81.6] 07/04/2009 Hypertension [I10] TIA (transient ischemic attack) [G45.9] Unspecified hypothyroidism [E03.9] Prolapse of vaginal vault after hysterectomy [N*11/08/2010 Prescriptions ordered this encounter Disp Refills Start End DIFICID 200 MG TABLET 10 t* 0 07/20/2024 Route: ORAL Sig: Take 1 tablet by mouth two times a day. Medications Discontinued During This Encounter Prescriptions - calcium carbonate(CALTRATE 600 600 MG (1,500 MG) TAB) (Discontinued) Take one(1) tablet twice daily. - docusate sodium (COLACE) 100 mg ORAL capsule (Discontinued) Take 1 capsule by mouth twice daily. - Quinapril-Hydrochlorothiazide (ACCURETIC) 20-12.5 mg ORAL Tab (Discontinued) take half tablet daily - SIMVASTATIN 20 MG TAB (Discontinued) one tablet daily - vancomycin (VANCOCIN) 125 mg capsule (Discontinued) Take 1 capsule by mouth every 6 hours for 28 days Disposition: Return if symptoms worsen or fail to improve. Follow-up and Disposition History for Encounter Date Provider Department Center 07/20/2024 [id number] ASHRAF [facility] Encounter Status:Closed by CANDICE ASHRAF on 07/20/24 PROGRESS Observed: 07/20/2024 11:04 AM Status: COMPLETED Source: [facility] ID: [id number] Author: CANDICE ASHRAF PA-C Service: ? Author Type: Physician Transition Lead Type: Progress Notes Filed: 07/20/2024 11:48 Note Text: CHIEF COMPLAINT: Patient presents with: Recurrent C Diff : 3 times since January This consult was requested by Abran Yanes MD for an opinion regarding recurrent C diff. My final recommendations will be communicated to the requesting health care provider by way of the shared medical record for internal providers or letter via the [employer] for external providers. HPI: Shamika Gray is a 74 year old female who presents for Recurrent C Diff (3 times since January ). PMHx of recurrent C diff, diverticulosis, HTN, TIA, hypothyroidism Patient tells me that she is here for recurrent C diff. Currently on a vancomycin dose. Started this in May, was told to stay on this until this visit. Denies symptoms today. Notes that if she stops the antibiotics, her symptoms return within three weeks. States she is getting stool tested each time before restarting Vancomycin however I do not have these records. Record Review: [facility] / Outside records reviewed. PAST MEDICAL HISTORY Diagnosis Date C. difficile diarrhea Diverticulosis of colon (without mention of hemorrhage) Hypertension Myocardial infarction (HCC) x2 Personal history of colonic polyps Personal history of colonic polyps TA in 2003 PMH - PAST MEDICAL HISTORY OF CONSTIPATION PMH - PAST MEDICAL HISTORY OF bladder PROLAPSE TIA (transient ischemic attack) 08/19/2004 Unspecified hypothyroidism Hypothyroidism PAST SURGICAL HISTORY Procedure Laterality Date COLONOSCOPY 03/2021 [facility] COLONOSCOPY FLX DX W/COLLJ SPEC WHEN PFRMD 08/06/2007 [facility] COLONOSCOPY FLX DX W/COLLJ SPEC WHEN PFRMD 06/26/2012 Colonoscopy repeat 5 y ears DILATION AND CURETTAGE DXAND/THER NONOBSTETRIC Dilation AND curettage LAPS ABD PRTMANDOMENTUM DX W/WO SPEC BR/WA SPX Laparoscopy Lysis of adhesions LIG/TRNSXJ FLP TUBE ABDL/VAG APPR UNI/BI Tubal ligation PAST SURGICAL HISTORY OF FOOT SURGERY PAST SURGICAL HISTORY OF 06/19/2007 foot surgery TOTAL KNEE REPLACEMENT Bilateral 03/2021 VAGINAL HYSTERECTOMY UTERUS 250 GM/< 09/13/2005 Hysterectomy, vaginal/ AANDP REPAIR Allergies: ALLERGIES Allergen Reactions Sulfa (Sulfonamide * Hives Medications: atorvastatin (LIPITOR) 20 mg tablet Take 20 mg by mouth daily at bedtime. carvedilol (COREG) 3.125 mg tablet Take 1 tablet by mouth every 12 hours. Ciclopirox (LOPROX) 0.77 % gel Apply a small amount to affected area twice a day to nails lisinopril (ZESTRIL) 20 mg tablet Take 1 tablet by mouth every afternoon. spironolactone (ALDACTONE) 25 mg tablet Take 1 tablet by mouth every afternoon. traZODone (DESYREL) 50 mg tablet take 1 and 1/2 TABLET BY MOUTH at bedtime As Needed for insomnia vancomycin (VANCOCIN) 125 mg capsule Take 1 capsule by mouth every 6 hours for 28 days Lactobacillus acidophilus (PROBIOTIC ORAL) Take by mouth. SYNTHROID 75 MCG TAB Take one(1) tablet daily. ECOTRIN 325 MG TAB Take one (1) tablet daily. DAILY MULTIVITAMIN TAB Take one(1) tablet daily. 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 Are you taking any blood thinners? No Physical Examination: BP 134/78 Pulse 60 Ht 5' 5.5 (1.66m) Wt 203 lb 14.4 oz (92.5kg) BMI 33.40 kg/(m2). Physical Exam Constitutional: Appearance: Normal appearance. HENT: Head: Normocephalic and atraumatic. Eyes: General: No scleral icterus. Extraocular Movements: Extraocular movements intact. Conjunctiva/sclera: Conjunctivae normal. Pupils: Pupils are equal, round, and reactive to light. Cardiovascular: Rate and Rhythm: Normal rate and regular rhythm. Pulses: Normal pulses. Heart sounds: Normal heart sounds. Pulmonary: Effort: Pulmonary effort is normal. Breath sounds: Normal breath sounds. Abdominal: General: Abdomen is flat. Bowel sounds are normal. Palpations: Abdomen is soft. Tenderness: There is no abdominal tenderness. Musculoskeletal: General: Normal range of motion. Cervical back: Normal range of motion and neck supple. Skin: General: Skin is warm and dry. Coloration: Skin is not jaundiced. Neurological: General: No focal deficit present. Mental Status: She is alert and oriented to person, place, and time. Psychiatric: Mood and Affect: Mood normal. Behavior: Behavior normal. Thought Content: Thought content normal. Judgment: Judgment normal. Assessment/Plan (A49.8) Recurrent Clostridioides difficile infection (primary encounter diagnosis) 1. Recurrent Clostridioides difficile infection -- Patient with recurrent C diff, has been treated x3 since January with Vancomycin. Symptoms return within three weeks of stopping the antibiotic. -- Has been on Vancomycin since May. Explained that is not something she should be on lobsterman. Would like her to stop this. If symptoms would return, plan for Dificid trial. -- Will send to C diff clinic as patient was initially sent here for fecal transplant evaluation. Explained that we do not do those and she would need to see the C diff clinic for further management. - CONSULT TO GASTROENTEROLOGY; Future - fidaxomicin (DIFICID) 200 mg tablet; Take 1 tablet by mouth two times a day. Dispense: 10 tablet; Refill: 0 Follow up in office PRN. Recommended to please call office/go to ER if fever, chills, chest pain, SOB, diarrhea, nausea, emesis, worsening abdominal pain, dehydration occurs I spent a total of 20 minutes on the date of the service which included preparing to see the patient, [id number] patient care, completing clinical documentation, obtaining and/or reviewing separately obtained history, performing a medically appropriate examination, counseling and educating the patient/family/caregiver, and ordering medications, tests, or procedures. Candice Ashraf PA-C July 20, 2024 11:45 AM ALLERGIES DATE TYPE / CODE NAME / CODE REACTION SEVERITY SOURCE 09/10/2005 Drug Class/080651038(S NOMED CT) SULFA (SULFONAMIDE ANTIBIOTICS) HIVES [facility] ENCOUNTERS ADMIT/DISCHARGE ACCOUNT NUMBER ADMITTING ENCOUNTER CLASS LOC ATION SOURCE 09/01/2024/ 5 [id number] Ambulatory [facility] HospitalBuild ing:SHAYLA [facility] 07/20/2024/ 4 [id number] Ambulatory [facility] HospitalBuild ing:GSNT [facility] PAYERS ENCOUNTER GUARANTOR PAYER SUBSCRIBER SOURCE 09/01/2024 Primary Insuranc e:MEDICARE A AND BPolicy Number: [id number] Date:4912-00-75Avli Name:Isabella GRAYDOB: [id number] [place] [address] [facility] 09/01/2024 Secondary Insura nce:HUMANA MEDICARE SUPPLEMENTPolicy Number: [id number] Date:[id number] Name:Adelina HERNANDEZ: [id number] [place] [address] [facility] 07/20/2024 Primary Insuranc e:MEDICARE A AND BPolicy Number: [id number] Date:8872-62-17Pjok Name:Isabella HERNANDEZ: [id number] [place] [address] [facility] 07/20/2024 Secondary Insura nce:HUMANA MEDICARE SUPPLEMENTPolicy Number: [id number] Date:3449-48-16Rxlp Name:Adelina HERNANDEZ: [id number] [place] [address] [facility]
[2024-10-06 15:18] VITALS: BMI 33.6
[2025-05-18 11:48] LABS: Hematocrit 40.6 % (37-47); Hemoglobin 14.0 g/dL (12.0-15.0); Immature Granulocytes Count 0.040 X10^3/uL (0.0-0.0); Mean Corp Hgb Conc 34.5 g/dL (32-36); Mean Corpuscular Volume 93.1 fL (81-99); Mean Platelet Vol. 9.4 fl (6.2-12.0); NRBC Flagged by Analyzer 0 % (0-5); Platelet Count 289 K/mm3 (150-450); RBC Distribution Width CV 13.7 % (11.6-14.6); RBC Distribution Width SD 46.9 fl (35.1-43.9); Red Blood Count 4.36 M/mm3 (4.2-5.4); White Blood Count 10.7 K/mm3 (4.4-11.0)
[2025-05-18 14:05] LABS: AST(SGOT) 27 U/L (<=31); Alanine Aminotransfer ALT/SGPT 20 U/L (<=34); Albumin, Serum 4.0 g/dL (3.4-4.8); Alkaline Phosphatase 63 U/L (35-104); Anion Gap 14 (5-15); BUN 17 mg/dL (4-19); BUN/Creat Ratio 18.5 RATIO (10-20); Calcium,Total 9.7 mg/dL (7.6-11.0); Carbon Dioxide 21.2 mmol/L (21.0-32.0); Chloride 99 mmol/L (98-108); Cholesterol 148 mg/dL (<=200); Globulin 2.8 g/dL (2.2-4.2); Glucose 134 mg/dL (70-99); Low Density Lipoprotein Calc. 70 mg/dL; Magnesium 1.9 mg/dL (1.5-2.2); Potassium 3.9 mmol/L (3.3-5.1); Triglycerides 162 mg/dL; Very Low Density Lipoprotein 32 mg/dL (5-40); cholesterol:hdl ratio screen 3.21
[2025-05-18 14:38] LABS: Free T3 2.6 pg/mL (2.18-3.98); Vitamin B12 2111 pg/mL (180-914); Vitamin D,25 Hydroxy 49.9 ng/mL (30-100)
== END | disposition home or self-care (01) ==
LOC: LAB 10:16
PROVIDERS: PCP Internal Medicine; Referring Provider Internal Medicine; Visit Provider Internal Medicine
DX: E88.819 Insulin resistance, unspecified (principal); I11.0 Hypertensive heart disease with heart failure; E03.9 Hypothyroidism, unspecified; E78.00 Pure hypercholesterolemia, unspecified; I25.10 Atherosclerotic heart disease of native coronary artery without angina pectoris; E55.9 Vitamin D deficiency, unspecified; E53.8 Deficiency of other specified B group vitamins; A04.71 Enterocolitis due to Clostridium difficile, recurrent; R19.7 Diarrhea, unspecified; Z13.220 Encounter for screening for lipoid disorders; R73.9 Hyperglycemia, unspecified
CPT/HCPCS: 36415; 80053; 80061; 82306; 82607; 83036; 83735; 84439; 84443; 84481; 85025; 87493